=== PATIENT | male | born 1980 | race Caucasian/White ===

== ENCOUNTER 2020-11-25 15:51 | Emergency (ER) | payer MEDICAID, SELFPAY ==
[2020-11-25 15:57] VITALS: BP 138/99; PULSE 77; RESP 16; TEMP 36.4; O2SAT 98
--- NOTE | 2020-11-25 16:21 | W.ED.GENAD ---
Discharge Plan Disposition Patient Disposition: HOME Condition: Stable Discharge Details Clinical Impression: Burn, Cellulitis Primary Care Provider: Syed Leong ED Provider: Suman Gtz Home Meds and New Rx's Prescriptions: Continued amitriptyline 75 mg Tablet 75 mg PO DAILY RF: 0 topiramate [Topamax] 25 mg Tablet 25 mg PO BID RF: 0 Discharge Instructions Instructions: Cellulitis (ED), Second-Degree Burn (ED) Additional Instructions: Continue Doxycycline as directed. Over the counter Tylenol/Motrin as directed for discomfort. Rest, Elevate, cool/warm compresses every 2 hours for 20 minutes. Please change antibiotic dressing as needed, at least daily. Watch for new/worsening symptoms and return to the ER for any concerns. I would reach out to you primary care provider to discuss burn reevaluation in the next 2-3 days Medical Decision Making 39-year-old [id number] gentleman who sustained a right arm steam burn at work 3 days ago. He was seen at the urgent care yesterday, placed on doxycycline. Reports that the wound was wrapped and shortly after noticed erythema spreading proximally. He denies fever, numbness, tingling, weakness, worsening of pain, drainage. Tetanus is up-to-date. He states that he has taken a total of 3 doses of doxycycline, last dose approximately 1 hour ago. Since that time he believes that the redness is actually decreasing. Prior to arrival the erythema has spread up to or even past the elbow however now is only to the proximal forearm. Clinically he appears well, nontoxic. I do not believe that laboratory values are indicated. Doxycycline is an appropriate medication. I have trace the erythema so that we are better able to track if this does not fact get worse. Patient is comfortable with this plan. He will rest, elevate, cool/warm compresses every 2 hours for twins. Continue doxycycline as directed. [id number]-getecwk Tylenol and/or Motrin as directed for discomfort. He will watch for new or worsening symptoms and return to the ER for any concerns. If symptoms are worsening likely IV access, laboratory values and IV medications will be indicated. Otherwise he will reach out to his primary care provider to discuss wound reevaluation next 2-3 days. Again he is afebrile. This burn is noncircumferential. Neuro, vascular, tendon intact. Medical Records Medical records reviewed: Yes I reviewed the patient's medical records. HPI General Mode of arrival: ambulatory. Date/Time Provider Initiated Documentation: 11/25/20 16:02. Limitations to Documentation: no limitations. Information obtained by: patient. History of Present Illness described as mild, with intensity rated at 3. Quality is described as burning and aching, and is localized to the right and upper extremity. Patient extremity and proximal. Patient started experiencing this day(s) (3) and it has been other (improving when compared to 1 hour ago). other things that improve symptom(s), (Doxycycline) No exacerbating factors reported . Patient notes no other symptoms.; denies fever/chills. Patient did receive the following treatments prior to arrival, other (Doxycycline 100 mg) HPI Narrative: This is a 39-year-old gentleman, [id number], presenting for a right wrist edema burn that occurred at work 3 days ago. Subsequently he popped the blister on his own. Seen at the urgent care yesterday, placed on doxycycline, redness slightly spreading. Of note, he has taken 3 doses of doxycycline total, last dose approximately 1 hour ago, believes that the redness is actually improving. No additional concerns or complaints. Tetanus status up-to-date Related Data Home Medications Medication Instructions Recorded Confirmed amitriptyline 75 mg PO DAILY 11/25/20 11/25/20 topiramate [Topamax] 25 mg PO BID 11/25/20 11/25/20 Allergies Allergy/AdvReac Type Severity Reaction Status Date / Time Sulfa (Sulfonamide Allergy Unknown Unverified 11/25/20 16:01 Antibiotics) General Stated Complaint: Burn BECKIE: 3 Review of Systems Constitutional Constitutional: Denies fever(s) and Denies weakness Musculoskeletal Musculoskeletal: Denies arthralgias, Denies numbness and Denies tingling Integumentary/Breasts Skin/Breast: Reports erythema Neurologic Neurologic: Denies numbness, Denies tingling and Denies weakness FOR[facility]LY [facility] Social History Smoking/Tobacco Use Status: Never Smoking risk assessment performed?: Yes Alcohol Intake: never Do you feel safe at home: No Do you feel safe in your relationship?: Yes Exam Const General: cooperative, healthy appearing, comfortable and no acute distress Orientation: alert and awake HENNY Head: normal to inspection, normocephalic and atraumatic Eyes General: appearance normal, both eyes and all related structures Conjunctivae: conjunctivae normal Sclera: sclerae normal Neck Neck: normal visual inspection, trachea midline and supple Resp Effort & Inspection: normal respiratory effort and able to speak in complete sentences Cardio Rate: regular rate Rhythm: regular rhythm Skin General skin exam: erythema and other (burn) Neuro General: patient alert, patient awake, moves all extremities and no focal motor deficits Cognition: normal cognition Speech: speech normal Gait: normal gait Motor: muscle tone normal throughout Sensory Exam: no sensory deficits noted Extrem General: full ROM and capillary refill normal Elbow/forearm/wrist images: 1. There is a non circumferential ruptured second-degree burn. There is minimal discomfort to palpation. Full range of motion. Neuro, vascular, tendon intact. There is no weeping or drainage. Starting approximately there appears to be macular erythema that would be consistent with cellulitis. 2. Cellulitis Psych Appearance: grossly normal Mental Status: mental status grossly normal Course Vital Signs Vital signs: Vital Signs Temperature 36.4 C L 11/25/20 15:57 Pulse 77 11/25/20 15:57 Respiratory Rate 16 11/25/20 15:57 Blood Pressure 138/99 H 11/25/20 15:57 Pulse Oximetry 98 11/25/20 15:57 Temperature 36.4 C L 11/25/20 15:57 Temperature Source Skin 11/25/20 15:57 Pulse 77 11/25/20 15:57 Respiratory Rate 16 11/25/20 15:57 Respiratory Effort Non-Labored 11/25/20 15:57 Blood Pressure 138/99 H 11/25/20 15:57 Blood Pressure Position Supine 11/25/20 15:57 Pulse Oximetry 98 11/25/20 15:57 Oxygen Delivery Method Room Air 11/25/20 15:57 Oxygen Flow Rate 0 11/25/20 15:57 Pain Level 5 11/25/20 16:04
== END 2020-11-25 16:45 | disposition home or self-care (01) ==
PROVIDERS: Emergency Provider Physician Assistant; PCP Family Medicine
DX: T23.271A Burn of second degree of right wrist, initial encounter (principal); L03.113 Cellulitis of right upper limb; X13.1XXA Other contact with steam and other hot vapors, initial encounter
CPT/HCPCS: 16020

== ENCOUNTER 2021-02-05 09:08 | Emergency (ER) | payer MEDICAID, SELFPAY ==
[2021-02-05] VITALS (40 sets, daily range): BP systolic 108–131; BP diastolic 71–91; PULSE 62–88; RESP 12–24; TEMP 37.1; O2SAT 96–99
--- NOTE | 2021-02-05 09:00 | RT.EKG_ITS ---
APPROVED REPORT Exam: Resting ECG Reason for Exam: headache/dizzy Patient Location: E HR:82 bpm ECG Measurements Heart Rate 82 AXIS AZ 164 P 70 QRSd 88 QRS 33 QT 365 T 25 QTc 427 Conclusion Sinus rhythm...normal P axis, V-rate 60- 99
--- NOTE | 2021-02-05 09:15 | DI.CT_ITS ---
Exam(s) CT HEAD WO EXAM: CT HEAD WO CLINICAL HISTORY: HX Left tumor removal, SINCLAIR, Left side facial droop,. TECHNIQUE: Imaging Protocol: Axial computed tomography images with coronal and sagittal reformatted images were created and reviewed COMPARISON: No exams were available for comparison FINDINGS: Left temporal craniotomy site noted. There is no evidence of intracranial hemorrhage, mass effect, or shift of midline structures. There are no extra-axial fluid collections. The ventricles are not enlarged or shifted and there is no blo od within the ventricular system nor within the basal cisterns. IMPRESSION: No acute intracranial findings on this noninfused CT scan of the brain. Evidence of previous left temporal craniotomy. RADIATION DOSE DELIVERED: 756.54mGy.cm Total DLP DATA REPOSITORY: All CT scans at this facility are submitted to the National Radiology Data Registry (NRDR) Dose Index Registry (DIR) with the [employer] (ACR). RADIATION OPTIMIZATION: All CT scans at this facility use at least one of these dose optimization te chniques: automated exposure control; mA and/or kV adjustment per patient size (includes targeted exa ms where dose is matched to clinical indication); or iterative reconstruction.
--- NOTE | 2021-02-05 09:25 | W.ED.GENAD ---
Discharge Plan Disposition Patient Disposition: AGAINST MEDICAL ADVICE Condition: Stable Discharge Details Clinical Impression: Aphasia, Headache, History of paresthesia Primary Care Provider: Kobe Richardson ED Provider: Tootie Florez Home Meds and New Rx's Prescriptions: No Action amitriptyline 75 mg Tablet 75 mg PO DAILY RF: 0 prednisone 5 mg Tablet 5 mg PO DAILY RF: 0 Medical Decision Making 40-year-old male with a history of a left-sided brain tumor removal at [facility] in March presents to the ER chief complaint of left-sided facial droop which is at his baseline but he reports worsening, Over last couple weeks, tingling in his upper extremities, and visual changes including blurry vision and double vision which were worse yesterday and has seemed to have resolved upon arrival. He is alert and oriented x3. He is somewhat slow to respond and has some trouble remembering words. He reports this is gotten worse over the last 1 to 2 weeks. Positive nausea no vomiting, reports hard time focusing, no chest pain, no shortness of breath, no fever no chills. No pronator drift. He is ambulatory upon initial presentation to the department. Is complaining of left-sided headache at approximately 3 out of 10 radiating from left ear to his left frontal. EKG was reviewed by [Bradley Son MD] ER attending, please see his official read and report. No ST elevation. 1014: With further discussion and assessment with patient new symptoms include dizziness, feeling off balance, increase in forgetfulness, increased left-sided head pressure. I will consult with [facility] [place] regarding the recommendation if MRI is needed urgently versus outpatient. Patient has been taking prednisone daily for the last 5 days which seems to improve the pressure and his symptoms. Patient states that this morning he went to go mow the lawn and had numbness tingling in his arms, increased left-sided head pressure and feeling off balance. 1024: Spoke with Dr. Chris radiologist regarding head CT without contrast, he does not see any acute changes, nothing appreciable. Labs are largely unremarkable PT/INR within normal limits BUN 22, glucose 108. 1030: Call made to [facility] [place] for Neurology Consult, Images pushed. Exam(s) CT HEAD WO EXAM: CT HEAD WO CLINICAL HISTORY: HX Left tumor removal, SINCLAIR, Left side facial droop,. TECHNIQUE: Imaging Protocol: Axial computed tomography images with coronal and sagittal reformatted images were created and reviewed COMPARISON: No exams were available for comparison FINDINGS: Left temporal craniotomy site noted. There is no evidence of intracranial hemorrhage, mass effect, or shift of midline structures. There are no extra-axial fluid collections. The ventricles are not enlarged or shifted and there is no blood within the ventricular system nor within the basal cisterns. IMPRESSION: No acute intracranial findings on this noninfused CT scan of the brain. Evidence of previous left temporal craniotomy. 1131: Spoke with Dr. Puentes With Neurology She does recommend MRI with contrast and Follow up with Neurology in person she will make a note for Dr. Rivas. 1430 notified by staffing consultant that patient is back in room, MRI complete, patient is requesting to have his IV removed so he can go get his child. Patient out of room, IV removed prior to me speaking with patient. MRI results are still pending at this time. Patient eloped/ Left AGAINST MEDICAL ADVICE from the department prior to receiving discharge instructions or MRI results. Work-up at this time was not complete. Patient requesting to leave AMA. The patient appears clinically sober and is not under the influence of any known substances. Discussed risks and benefits with patient. Patient verbalizes understanding of situation and the risks of leaving including worsening condition, developing disability, including but not limited to . Discussed results of labs and imaging, if they were performed and recommendations for further treatment and/or observation. The patient verbalizes understanding of the results discussed. Every effort was made to involve family and situation discussed. At this time patient has opted to leave against medical advice. Patient is alert and oriented and has the capacity to make own decisions. Medical Records Medical records reviewed: Yes I reviewed the patient's medical records. Medical records narrative: Medical records reviewed from [facility]. 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 From a telehealth visit with neurology encounter date January 07, 2021 was reviewed. Patient did see neurologist Sanaz Rivas MD, he at that time had Been complaining of episodes of neck pain, dizziness, arm paresthesias, numbness left eye pain headaches and exhaustion. He has been having headache every day which she described at that time as pounding and was exhausted. Last MRI with and without contrast was done July [address] [facility]. Last CT head without was April 12, 2020. HPI General Mode of arrival: ambulatory. Date/Time Provider Initiated Documentation: 02/05/21 09:14. Limitations to Documentation: no limitations (Somewhat foregetful). Information obtained by: patient. HPI Narrative: 40-year-old male with a history of a left-sided brain tumor removal at [facility] in March presents to the ER chief complaint of left-sided facial droop which is at his baseline but he reports worsening, Over last couple weeks, tingling in his upper extremities, and visual changes including blurry vision and double vision which were worse yesterday and has seemed to have resolved upon arrival. He is alert and oriented x3. He is somewhat slow to respond and has some trouble remembering words. He reports this is gotten worse over the last 1 to 2 weeks. Positive nausea no vomiting, reports hard time focusing, no chest pain, no shortness of breath, no fever no chills. No pronator drift. He is ambulatory upon initial presentation to the department. Is complaining of left-sided headache at approximately 3 out of 10 radiating from left ear to his left frontal. Related Data Home Medications Medication Instructions Recorded Confirmed amitriptyline 75 mg PO DAILY 11/25/20 02/05/21 prednisone 5 mg PO DAILY 02/05/21 02/05/21 Allergies Allergy/AdvReac Type Severity Reaction Status Date / Time Sulfa (Sulfonamide Allergy Unknown Unverified 02/05/21 09:22 Antibiotics) General Stated Complaint: Headache BECKIE: 2 Review of Systems Narrative: Constitutional: Negative for weight loss, alert and oriented, well groomed, normal body habitus, appears comfortable. HEENT: Denies nasal discharge, sore throat, trouble swallowing. Left-sided headache, reports hitting his the top of his head on post yesterday. Report blurry vision double vision yesterday none currently. Chest: Denies chest pain, palpitations, irregular rhythm, hypertension. Respiratory: Denies Shortness of breath, cough, hemoptysis. GI: Denies abdominal pain, vomiting, diarrhea, constipation. Positive nausea : Denies dysuria, hematuria, flank pain, rectal bleeding. Neuro: Positive dizziness, left-sided headache, forgetting words, trouble with balance and trouble with focusing. History of acoustic neuroma and vestibular schwannoma which was [place] [facility] Hematologic: Denies easy bruising, intolerance to heat or cold, hair loss. [facility] Social History Smoking/Tobacco Use Status: Former Tobacco Use Smoking risk assessment performed?: Yes Alcohol Intake: former Substance use type: does not use Details: no alcohol or tobacco for years Do you feel safe at home: Yes Do you feel safe in your relationship?: Yes Exam Narrative Exam Narrative: Constitutional: Alert and oriented x3. Appears stated age. Normal body habitus. Head: Normocephalic, no trauma. Does have old healed surgical scars on the left frontal scalp and left parietal scalp Eyes: Pupils PERRLA, Red reflex noted, EOM's intact. Eyelids symmetrical without lesions, discharge, or swelling. ENT: Bilateral TM's WNL, External ear normal to inspection, no mastoid TTP, swelling, or erythema, Nasal turbinates WNL, no nasal discharge. Normal dentition, Posterior pharynx WNL, no exudate. Chest: RRR, Normal S1, S2, distal pulses intact. Resp: Lungs clear to auscultation bilaterally, no wheezes, rales, or rhonchi. Musculoskeletal: Normal gait, 5/5 strength bilateral lower extremities. Skin: No suspicious rashes or lesions. Capillary refill less than 2 sec. Neurologic: Alert and oriented x 3. 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 Hematologic/Lymphatic: No ecchymosis, no lymphadenopathy. Course Vital Signs Vital signs: Vital Signs Temperature 37.1 C 02/05/21 09:12 Pulse 86 02/05/21 09:12 Respiratory Rate 24 02/05/21 09:12 Blood Pressure 131/91 H 02/05/21 09:12 Temperature 37.1 C 02/05/21 09:12 Temperature Source Skin 02/05/21 09:12 Pulse 86 02/05/21 09:12 Respiratory Rate 24 02/05/21 09:12 Blood Pressure 131/91 H 02/05/21 09:12 Blood Pressure Position Supine 02/05/21 09:12 Oxygen Delivery Method Room Air 02/05/21 09:12 Oxygen Flow Rate 0 02/05/21 09:12
[2021-02-05 09:51] LABS: INR 1.1 (0.9-1.1); Prothrombin Time 10.6 sec (9.3-11.0)
[2021-02-05 09:53] LABS: ALT 47 U/L (16-63); AST 22 U/L (15-37); Albumin 4.2 g/dL (3.4-5.0); Alkaline Phosphatase 70 U/L (46-116); Anion Gap 7.4 mmol/L (3-11); BUN 22 mg/dL (7-18); Bilirubin, Total 0.3 mg/dL (0.2-1.0); CO2 28.6 mmol/L (21.0-32.0); CREATININE 0.9 mg/dL (0.70-1.30); Calcium 9.3 mg/dL (8.5-10.1); Chloride 104 mmol/L (98-107); Glucose 108 mg/dL (74-106); Potassium 4.2 mmol/L (3.5-5.1); Sodium 140 mmol/L (136-145); Total Protein 7.4 g/dL (6.4-8.2)
[2021-02-05] MEDS: Normal Saline 1,000 ML 1000 ML IV (10:37)
[2021-02-05] MEDS: Normal Saline Flush 10 ML SYR IVP ×2 (10:37→14:20)
[2021-02-05 10:55] LABS: Abs Immature Grans 0.01 10^3/uL (0.0-0.06); Absolute Basophil Count 0.03 10^3/uL (0.0-0.2); Absolute Eosinophil Count 0.04 10^3/uL (0.0-0.7); Absolute Lymphocyte Count 1.23 10^3/uL (1.2-3.4); Absolute Monocyte Count 0.33 10^3/uL (0.1-0.8); Absolute Neutrophil Count 5.11 10^3/uL (1.2-6.7); Basophils % 0.4; Eosinophils % 0.6; HCT 43.3 % (40.0-50.0); HGB 14.6 g/dL (13.5-17.5); Immature Grans % 0.1; Lymphocytes % 18.2; MCH 29.8 pg (27.0-33.0); MCHC 33.7 % (32.0-36.0); MCV 88.4 fL (80-95); MPV 10.4 fL (8.0-11.0); Monocytes % 4.9; Neutrophils % 75.8; Nucleated RBC 0 %; Platelet Count 231 10^3/uL (130-400); RDW 12.1 % (11.8-14.1); RDW-SD 39.1 fL; WBC 6.75 10^3/uL (4.4-10.8)
--- NOTE | 2021-02-05 11:50 | DI.MRI_ITS ---
Exam(s) MR IAC BRAIN WO/W EXAM: MR IAC BRAIN WO/W CLINICAL HISTORY: Hx Acoustic neuroma removal TECHNIQUE: Multiplanar multisequence MRI of the brain was performed. Both noninfused and contrast i nfused sequences were performed. IV Contrast injected was cc Dotarem. COMPARISON: CT CT HEAD WO from 02/05/2021 FINDINGS: There has been left temporal craniotomy. CEREBRAL PARENCHYMA: No evidence of intracranial hemorrhage, mass effect nor shift of midline structu re. No extraaxial fluid collections. Ventricles are not enlarged nor shifted. There is no significant focal signal abnormality in the cerebellar hemispheres nor within the cody, m idbrain, and thalami. There is no abnormal signal abnormality in the periventricular white matter. There are no ring enhancing lesions in the brain. There is no abnormal meningeal enhancement. INTERNAL AUDITORY CANALS: Right-side unremarkable. On the opposite-left side there is area of asymme tric signal abnormality anterior to the porous acousticus which measures 1.7 x 1.86 by 0.7 cm cephalo caudal. This is T1 hyperintense and decreased signal on fat suppression and may be related to postsu rgical change just anterior to the left internal auditory canal. There is no abnormal signal evident in adjacent cody and midbrain. PITUITARY GLAND: No mass nor parasellar abnormality. No obvious abnormality in the cavernous sinuses. FLOW VOIDS: The expected flow void are noted. No evidence of obvious aneurysm nor obvious vascular ma lformation. PARANASAL SINUSES: There is a unilateral fluid level in left maxillary sinus, consistent with sinusit is. There is a subjacent retention cyst noted. The opposite-right maxillary sinus is clear as are t he other paranasal sinuses and mastoid air cells. ORBITS: No obvious abnormal findings. IMPRESSION: 1. In this patient who has had recent left temporal craniotomy with resection of acoustic schwannoma, there is some signal abnormality just anterior to the left petrous temporal bone as described above which is most probably related to the previous surgery (as opposed to recurrent mass). Correlation w ith operative report is recommended. Also comparison to any previous outside and especially postoper ative MRI studies is recommended 2. There are no ring enhancing lesions in the brain. 3. No evidence of intracranial hemorrhage. Findings discussed with ER provider following completion of the study 02/05/2021 DATA REPOSITORY:
[2021-02-05] MEDS: LORazepam 2 MG/ML VIAL 1 MG IVP (13:02)
[2021-02-05] MEDS: Gadoterate meglumine 20 ML VIAL 16 ML IVP (14:21)
== END 2021-02-05 14:35 | disposition left against medical advice (07) ==
PROVIDERS: Emergency Provider Registered Nurse Emergency; PCP Family Medicine
DX: R47.01 Aphasia (principal); R51.9 Headache, unspecified; R20.2 Paresthesia of skin; H53.8 Other visual disturbances; R11.0 Nausea; Z53.29 Procedure and treatment not carried out because of patient's decision for other reasons
CPT/HCPCS: 36415; 36416; 70553; 80053; 82962; 93005; 96361; 96374; 99285; 70450; 85025; 85610; 93010; 99284; J2060

== ENCOUNTER 2021-02-19 13:08 | Outpatient (REF) | payer MEDICAID, SELFPAY ==
[2021-02-19 14:02] LABS: ESR 8 mm/hr (0-15)
[2021-02-20 09:49] LABS: Lyme Ab w Rflx to Lyme Confirm Negative (Negative)
== END 2021-02-19 13:09 | disposition home or self-care (01) ==
LOC: NCHCN 13:08
PROVIDERS: PCP Family Medicine; Visit Provider Family Medicine
DX: R51.9 Headache, unspecified (principal); R53.1 Weakness; G51.0 Bell's palsy
CPT/HCPCS: 85652; 86618

== ENCOUNTER 2021-02-19 16:03 | Outpatient (REF) | payer MEDICAID, SELFPAY | END 2021-02-19 16:04 | disposition home or self-care (01) | LOC: LBN 16:03 | PROVIDERS: PCP Family Medicine; Visit Provider Physician Assistant Medical | DX: N39.0 Urinary tract infection, site not specified (principal) | CPT/HCPCS: 87077; 87086; 87186 ==

== ENCOUNTER 2021-02-21 11:27 | Emergency (ER) | payer MEDICAID, SELFPAY ==
[2021-02-21 11:30] VITALS: BP 131/79; PULSE 90; RESP 16; TEMP 36.7; O2SAT 99
--- NOTE | 2021-02-21 12:03 | ED.GENADUL_ITS ---
Discharge Plan Disposition Patient Disposition: HOME Condition: Improving Discharge Details Clinical Impression: Dysuria Primary Care Provider: Kobe Richardson ED Provider: Wilbur Barnett Home Meds and New Rx's Prescriptions: New levofloxacin 500 mg tablet 500 mg PO DAILY 7 Days Qty: 7 RF: 0 Continued amitriptyline 75 mg Tablet 75 mg PO DAILY RF: 0 Discontinued cephalexin 500 mg capsule 500 mg PO BID RF: 0 No Action prednisone 5 mg Tablet 5 mg PO DAILY RF: 0 Discharge Instructions Instructions: Dysuria (ED) Additional Instructions: Stop taking the prescribed cephalexin. We will begin levofloxacin 1 tablet daily for 7 days. We have asked our care management team to arrange a follow-up for you in urology clinic. Please return if you develop a fever, abdominal pain, vomiting, or any other acute concerns. Medical Decision Making 40-year-old male states she developed foul-smelling and burning with urination over 3 days ago, was seen in urgent care and started on Keflex 500 mg twice daily of which she has had 4 doses. Now with persistent subjective fever and chills, low back ache. Sexually active with a single partner, no new sexual contacts. Denies any penile discharge or discomfort. Patient is well-appearing, his exam is reassuring. Differential diagnosis includes urinary tract infection, cystitis, prostatitis. Labs: White blood cell count elevated at 13.9, hematocrit 40, platelets 224. Chemistries reassuring with BUN 16, creatinine 0.9, normal LFTs. Urinalysis shows no significant acute findings. CT images obtained, without significant acute findings. See formal report. Given the patient's somewhat atypical presentation, likely partially treated UTI, I will place him on Levaquin and also refer to urology for follow-up. Patient deferred prostatic examination during today's visit. He is stable and appropriate for outpatient trial. HPI General Mode of arrival: ambulatory . Date/Time Provider Initiated Documentation: 02/21/21 11:29 . Limitations to Documentation: no limitations . Information obtained by: patient . History of Present Illness 40 year old M presents to the emergency department with the chief complaint of Low back pain, fever, foul-smelling urination, described as moderate, and is localized to the abdomen and genitals. Patient reports no radiation. Patient started experiencing this day(s) and it has been constant. No relieving factors improve symptom(s), No exacerbating factors reported . Patient notes fever/chills. Patient did receive the following treatments prior to arrival, other (Cephalexin twice daily for 2 days) Related Data Home Medications Medication Instructions Recorded Confirmed amitriptyline 75 mg PO DAILY 11/25/20 02/05/21 prednisone 5 mg PO DAILY 02/05/21 02/05/21 levofloxacin 500 mg PO DAILY 7 Days #7 tab 02/21/21 Previous Rx's Medication Instructions Recorded levofloxacin 500 mg PO DAILY 7 Days #7 tab 02/21/21 Allergies Allergy/AdvReac Type Severity Reaction Status Date / Time Sulfa (Sulfonamide Allergy Unknown Unverified 02/21/21 11:35 Antibiotics) General Stated Complaint: FlankPain BECKIE: 3 Review of Systems Narrative: No vomiting. Positive subjective fever and chills. Low backache. Otherwise well. 6 systems reviewed and negative. [facility] Social History Smoking/Tobacco Use Status: Former Tobacco Use Smoking risk assessment performed?: Yes Alcohol Intake: former Substance use type: does not use Details: no alcohol or tobacco for years Do you feel safe at home: Yes Do you feel safe in your relationship?: Yes Exam Narrative Exam Narrative: GEN: awake, alert, oriented 3. Pleasant, well groomed, interactive. HEAD: Normocephalic, atraumatic EYES: PERRL, EOMI NECK: Full ROM, no LETTY, no menigismus CHEST/RESP: Nontender, clear to auscultation bilateral, no wheeze/rhonchi/rales CARDIOVASCULAR: RRR, no murmur, rub chidi. 2+ Rad pulse bilateral ABDOMEN: Soft, nontender, no mass. +Bowel sounds. Mild bilateral flank tenderness to percussion EXT: Full ROM, no edema, no rash Neuro: Grossly normal neurologic exam, conversant, interactive. Psych: Speech fluent, thoughts congruent, affect normal Course Vital Signs Vital signs: Vital Signs Temperature 36.7 C 02/21/21 11:30 Pulse 90 02/21/21 11:30 Respiratory Rate 16 02/21/21 11:30 Blood Pressure 131/79 02/21/21 11:30 Pulse Oximetry 99 02/21/21 11:30 Temperature 36.7 C 02/21/21 11:30 Temperature Source Skin 02/21/21 11:30 Pulse 90 02/21/21 11:30 Respiratory Rate 16 02/21/21 11:30 Respiratory Effort 02/21/21 11:37 Blood Pressure 131/79 02/21/21 11:30 Blood Pressure Position Sitting 02/21/21 11:30 Pulse Oximetry 99 02/21/21 11:30 Oxygen Delivery Method Room Air 02/21/21 11:30 Oxygen Flow Rate 0 02/21/21 11:30 Comment taking tylenol and ibuprofen 02/21/21 11:30
[2021-02-21] MEDS: Normal Saline Flush 10 ML SYR IVP (12:19)
[2021-02-21] MEDS: levoFLOXacin 750 MG/150 ML BAG 100 MG IVPB (12:21)
[2021-02-21] MEDS: Normal Saline 1,000 ML 1000 ML IV ×2 (12:21→13:15)
[2021-02-21 12:24] LABS: Bilirubin Negative (Negative); Blood Negative (Negative); Clarity Clear (Clear); Glucose Negative (Negative); Ketones Negative (Negative); Leukocyte Esterase Negative (Negative); Nitrite Negative (Negative); Urobilinogen 0.2 EU/dL (Up TO 0.2)
[2021-02-21 12:28] LABS: Abs Immature Grans 0.03 10^3/uL (0.0-0.06); Absolute Eosinophil Count 0.11 10^3/uL (0.0-0.7); Absolute Lymphocyte Count 2.51 10^3/uL (1.2-3.4); Absolute Neutrophil Count 9.89 10^3/uL (1.2-6.7); Basophils % 0.4; Eosinophils % 0.8; HCT 40.8 % (40.0-50.0); HGB 13.7 g/dL (13.5-17.5); Immature Grans % 0.2; MCH 29.7 pg (27.0-33.0); MCHC 33.6 % (32.0-36.0); MCV 88.3 fL (80-95); MPV 9.7 fL (8.0-11.0); Monocytes % 9.7; Neutrophils % 70.9; Nucleated RBC 0 %; Platelet Count 224 10^3/uL (130-400); RBC 4.62 10^6/uL (4.36-5.78); RDW-SD 38.7 fL; WBC 13.95 10^3/uL (4.4-10.8)
[2021-02-21 12:29] LABS: Absolute Basophil Count 0.06 10^3/uL (0.0-0.2); Absolute Monocyte Count 1.35 10^3/uL (0.1-0.8)
[2021-02-21 12:40] LABS: ALT 32 U/L (16-63); AST 15 U/L (15-37); Albumin 3.6 g/dL (3.4-5.0); Alkaline Phosphatase 82 U/L (46-116); Anion Gap 7.6 mmol/L (3-11); BUN 16 mg/dL (7-18); Bilirubin, Total 0.4 mg/dL (0.2-1.0); CO2 28.4 mmol/L (21.0-32.0); CREATININE 0.9 mg/dL (0.70-1.30); Calcium 8.7 mg/dL (8.5-10.1); Chloride 103 mmol/L (98-107); Glucose 112 mg/dL (74-106); Potassium 3.6 mmol/L (3.5-5.1); Sodium 139 mmol/L (136-145); Total Protein 7.4 g/dL (6.4-8.2)
--- NOTE | 2021-02-21 13:15 | DI.CT_ITS ---
Exam(s) CT ABDOMEN PELVIS W EXAM: CT ABDOMEN PELVIS W CLINICAL HISTORY: Bilateral flank pain, dysuria. TECHNIQUE: Imaging Protocol: Axial computed tomography images with coronal and sagittal reformatted images were created and reviewed CONTRAST MATERIAL: Intravenous: Omnipaque 350 Contrast volume:structured data in ml Oral: yes / no COMPARISON: No exams were available for comparison FINDINGS: ABDOMEN: Lung Bases: mild atelectasis Liver: Normal density. No measurable mass. Gallbladder and biliary tract: No radiodense calculus or dilation. Pancreas: Normal density, no abnormal calcifications or inflammatory process. Spleen: Normal. Kidneys: Normal size, contour and axis. No radiodense stones or obstructive uropathy. No masses seen. Adrenal glands: No masses seen. Abdominal Aorta: Abdominal portion non-dilated. mild atherosclerotic changes. PELVIS: Bladder: Symmetric distention, no gross wall thickening. no calculi Bowel: large quantity of stool. No obstruction or bowel wall thickening. appendix not visible. chan rgical clips right lower quadrant. Peritoneal cavity: No ascites, collection or mesenteric inflammatory response. Bones: Within normal limits. Reproductive organs: Within normal limits. Lymph nodes: Unremarkable. Impression: increased quantity of stool, otherwise unremarkable CT scan of the abdomen and pelvis. RADIATION DOSE DELIVERED: 853.69mGy.cm Total DLP DATA REPOSITORY: All CT scans at this facility are submitted to the National Radiology Data Registry (NRDR) Dose Index Registry (DIR) with the [employer] (ACR). RADIATION OPTIMIZATION: All CT scans at this facility use at least one of these dose optimization te chniques: automated exposure control; mA and/or kV adjustment per patient size (includes targeted exa ms where dose is matched to clinical indication); or iterative reconstruction.
[2021-02-21] MEDS: Normal Saline - Diluent 50 ML VIAL IV (14:26)
[2021-02-21] MEDS: Omnipaque 350 MG/ML 100 ML BTL IJ (14:26)
[2021-02-21 15:02] VITALS: BP 133/57; PULSE 87; O2SAT 99
--- NOTE | 2021-02-21 18:48 | NUR.NOTE ---
Nursing Note: Referral faxed to urology 02/21/21 @ [phone]
== END 2021-02-21 15:04 | disposition home or self-care (01) ==
PROVIDERS: Emergency Provider Emergency Medicine; PCP Family Medicine
DX: R30.0 Dysuria (principal)
CPT/HCPCS: 36415; 80053; 96361; 96365; 99285; 74177; 81003; 83605; 85025; 87086; 99283; J1956; J3490

== ENCOUNTER 2021-03-04 01:08 | Outpatient (CLI) | payer MEDICAID, SELFPAY ==
--- NOTE | 2021-03-04 08:00 | ETT_ITS ---
APPROVED REPORT Exam: Exercise Treadmill Patient Location: Out-Patient Room/Bed: Stress Nurse: Marni Villagomez RN Ordering Provider:CRISTI AVERY, Contact Number: [phone] BMI: 26.45 Baseline Rhythm: Sinus Rhythm Indications: Dyspnea on exertion, body weakness on exertion. Medical History Medical History: HAs, Dysuria, Paresthesia, Aphasia, Cellulitis, Brain tumor Cardiac Medications: None., Allergies: Sulfa Cardiac Risk Factors: Smoking (former) Previous Cardiac Procedures: None. Pretest Chest Pain Characteristics: No chest pain or dyspnea present at rest. Exercise History: Sedentary; has not been physically active since surgery 03/2020 Physical Disabilities: None. Lung Sounds: Clear to auscultation Heart Sounds: Regular Stress Test Details Test: Exercise stress testing was performed using a Daren protocol. Rest Stress HR Resting HR Supine: 84 bpm Max Heart Rate (APMHR): 181 bpm Resting HR Standin bpm Target HR (85% APMHR): 153 bpm Max HR Achieved: 188 bpm % of APMHR: 103 Recovery HR: 100 bpm HR response to stress: Normal HR response to stress Comment: prolonged return to baseline in recovery period. BP Resting BP Supine: 132/90 mmHg Resting BP Standin/88 mmHg Max BP: 160/76 mmHg Recovery BP: 128/72 mmHg BP response to stress: Normal blood pressure response to stress. ECG Resting ECG: Sinus Rhythm Ectopy: None Comment: inverted T wave lead III when standing. Stress ECG: Sinus Tachycardia ST Change: No significant ST segment changes noted Arrhythmia: None Comment: Flipped T waves in leads aVF and V6. Recovery ECG: Sinus Tachycardia Recovery ST Change: No significant ST segment changes noted Recovery Arrhythmia: occasional PVCs Comment: Flipped T waves returned to baseline within 10 minutes in leads aVF and V6, and 14 minutes i n lead III. Clinical Reason for Termination: Fatigue Stress Symptoms: Dyspnea, Dizziness Exercise duration: 16 min49 sec Highest Stage Reached: Stage 6: 5.5 mph at 20% grade. Exercise capacity: 16.79 METs Gomes Treadmill Score: 15.1 Rate Pressure Product: 32411 Stress ECG Conclusion 1. The resting electrocardiogram showed voltage for left ventricular hypertrophy, rightward axis 2. Patient exercised on the Daren protocol and completed a workload of 16.79 METS 3. Normal heart rate and blood pressure response to exercise. The patient achieved 100% of predicted heart rate for age 4. There were no symptoms to suggest angina 5. Electrocardiographically the test was negative for myocardial ischemia 6. There were no significant dysrhythmias Gomes Treadmill Score is 15.1 which is Low risk.
== END 2021-03-04 01:28 ==
PROVIDERS: PCP Family Medicine; Visit Provider Family Medicine
DX: R06.09 Other forms of dyspnea (principal); F17.210 Nicotine dependence, cigarettes, uncomplicated
CPT/HCPCS: 93017

== ENCOUNTER 2021-03-19 02:54 | Outpatient (CLI) | payer MEDICAID, SELFPAY ==
[2021-03-22 15:59] LABS: Testosterone, Total 411 ng/dL (240-950)
== END 2021-03-19 02:55 | disposition home or self-care (01) ==
LOC: LBO 02:54
PROVIDERS: PCP Family Medicine; Visit Provider Urology
DX: E29.1 Testicular hypofunction (principal)
CPT/HCPCS: 36415; 84403

== ENCOUNTER 2021-04-22 14:35 | Outpatient (REF) | payer MEDICAID, SELFPAY ==
[2021-04-22 14:29] LABS: Abs Immature Grans 0.02 10^3/uL (0.0-0.06); Absolute Basophil Count 0.04 10^3/uL (0.0-0.2); Absolute Eosinophil Count 0.07 10^3/uL (0.0-0.7); Absolute Lymphocyte Count 2.93 10^3/uL (1.2-3.4); Absolute Monocyte Count 0.45 10^3/uL (0.1-0.8); Absolute Neutrophil Count 4.69 10^3/uL (1.2-6.7); Basophils % 0.5; Eosinophils % 0.9; HCT 44.9 % (40.0-50.0); HGB 15.1 g/dL (13.5-17.5); Immature Grans % 0.2; Lymphocytes % 35.7; MCH 29.2 pg (27.0-33.0); MCHC 33.6 % (32.0-36.0); MCV 86.7 fL (80-95); MPV 10.8 fL (8.0-11.0); Monocytes % 5.5; Neutrophils % 57.2; Nucleated RBC 0 %; Platelet Count 228 10^3/uL (130-400); RBC 5.18 10^6/uL (4.36-5.78); RDW 11.9 % (11.8-14.1); RDW-SD 38.4 fL
[2021-04-22 15:21] LABS: Anion Gap 10.8 mmol/L (3-11); BUN 23 mg/dL (7-18); CO2 26.2 mmol/L (21.0-32.0); CREATININE 0.9 mg/dL (0.70-1.30); Calcium 9.4 mg/dL (8.5-10.1); Chloride 104 mmol/L (98-107); Glucose 90 mg/dL (74-106); Sodium 141 mmol/L (136-145); TSH (W/Ref FT4) 1.66 uIU/mL (0.36-3.74); Vitamin B12 928 pg/mL (193-986)
[2021-04-24 01:18] LABS: Vitamin D 25 Total 93.4 ng/mL (30-100)
== END 2021-04-22 14:36 | disposition home or self-care (01) ==
LOC: NCHCN 14:35
PROVIDERS: PCP Family Medicine; Visit Provider Family Medicine
DX: D72.829 Elevated white blood cell count, unspecified (principal); R03.0 Elevated blood-pressure reading, without diagnosis of hypertension; E55.9 Vitamin D deficiency, unspecified; R53.83 Other fatigue
CPT/HCPCS: 80048; 82306; 82607; 84443; 85025

== ENCOUNTER 2021-05-20 02:38 | Outpatient (CLI) | payer MEDICAID, SELFPAY ==
[2021-05-20] MEDS: Gadoterate meglumine 20 ML VIAL 10 ML IVP (15:50)
--- NOTE | 2021-05-20 15:50 | DI.MRI_ITS ---
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 TECHNIQUE: Multiplanar multisequence MRI of the brain and internal auditory canals was performed. CONTRAST MATERIAL: IV Contrast: 16 mL of Magnevist contrast administered. COMPARISON: MR MR IAC BRAIN WO/W from 02/05/[address] HEAD WO from 02/05/2021 MR MR IAC BRAIN WO/W from 02/05/[address] HEAD WO from 02/05/2021 FINDINGS: VENTRICLES AND EXTRA AXIAL SPACES: Normal in size and morphology for the patient's age. HEMORRHAGE: None. CEREBRAL PARENCHYMA: No focus of restricted diffusion to suggest acute infarct. No space-occupying le jack identified. MIDLINE SHIFT: None. BRAINSTEM/CEREBELLUM: Normal. CALVARIUM: Left temporoparietal craniotomies. ENHANCEMENT: No suspicious enhancement identified. VISUALIZED PARANASAL SINUSES/MASTOIDS: Clear. IAC/CP ANGLE: Stable area high T1 signal anterior to the left internal auditory canal. The internal auditory canals are within normal limits. No enhancing lesions are seen. Visualized portion of the 7t h and 8th nerves appear within normal limits. IMPRESSION: Unremarkable MRI of the brain. Stable postsurgical changes related to prior acoustic neuroma resecti on. No evidence of recurrence mass or new abnormality. DATA REPOSITORY:
== END 2021-05-20 02:58 ==
PROVIDERS: PCP Family Medicine; Visit Provider Family Medicine
DX: D33.3 Benign neoplasm of cranial nerves (principal); R51.9 Headache, unspecified; Z98.890 Other specified postprocedural states
CPT/HCPCS: 70553

== ENCOUNTER 2021-05-21 04:15 | Outpatient (CLI) | payer MEDICAID, SELFPAY ==
[2021-05-24 17:23] LABS: Testosterone, Total 602 ng/dL (240-950)
== END 2021-05-21 04:16 | disposition home or self-care (01) ==
LOC: LBO 04:15
PROVIDERS: PCP Family Medicine; Visit Provider Urology
DX: E29.1 Testicular hypofunction (principal)
CPT/HCPCS: 36415; 84403

== ENCOUNTER 2021-08-25 04:01 | Outpatient (CLI) | payer MEDICAID, SELFPAY ==
[2021-08-29 00:12] LABS: Testosterone, Total 396 ng/dL (240-950)
== END 2021-08-25 04:02 | disposition home or self-care (01) ==
LOC: LBO 04:01
PROVIDERS: PCP Family Medicine; Visit Provider Urology
DX: E29.1 Testicular hypofunction (principal)
CPT/HCPCS: 36415; 84403

== ENCOUNTER 2021-11-26 02:48 | Outpatient (CLI) | payer MEDICAID, SELFPAY ==
[2021-11-29 12:11] LABS: Testosterone, Total 542 ng/dL (240-950)
== END 2021-11-26 02:49 | disposition home or self-care (01) ==
LOC: LBO 02:48
PROVIDERS: PCP Family Medicine; Visit Provider Urology
DX: E29.1 Testicular hypofunction (principal); R53.83 Other fatigue
CPT/HCPCS: 36415; 84403

== ENCOUNTER 2022-02-27 01:22 | Outpatient (CLI) | payer MEDICAID, SELFPAY ==
--- OUTSIDE RECORDS SUMMARY | 2022-02-27 01:24 | XMS_ITS | Encounter Summary ---
:[address] [facility] Address [address] [place] [address] Care Team Providers Name Role Phone Syed Leong MD Primary Care Provider Unavailable Encounter Details Date Type Department Care Team Description 02/15/2020 Results Only [facility] Family Syed Leong MD [address] [address] Social History Tobacco Use Types Packs/Day Years Used Date Former Smoker Cigarettes 10 Quit: 03/25/20 09 Smokeless Tobacco: Never Used Alcohol Use Standard Drinks/Week Comments No 0 (1 standard drink = 0.6 oz pure alcoho l) occ Sex Assigned at Date Recorded Male 03/11/2020 9:13 EDT COVID-19 Exposure Response Date Recorded In the last month, have you been in contact with No / Unsure 02/14/2020 16:02 EDT someone who was confirmed or suspected to have Coronavirus / COVID-19? documented as of this encounter Functional Status Functional Status Response Date of Assessment Because of a physical, mental, or emotional condition, No 11/15/2019 does this person have difficulty doing errands alone such as visiting a doctor's office or shopping? Cognitive Status Response Date of Assessment Because of a physical, mental, or emotional condition, No 11/15/2019 does this person have serious difficulty concentrating, remembering, or making decisions? documented as of this encounter Plan of Treatment Not on filedocumented as of this encounter Procedures Procedure Name Priority Date/Time Associated Diagnosis Comme nts BASIC METABOLIC Routine 02/15/2020 13:44 Results for this PANEL (BMP) EDT procedure are i n the results section. documented in this encounter Results BASIC METABOLIC PANEL (BMP) (02/15/2020 13:44 EDT) BUN - [facility] [place] 26 10 - 26 mg/dL [facility] CALCIUM - [facility] 9.5 8.5 - 10.5 [facility] mg/dL [facility] Chloride 102 96 - 110 [facility] mmol/L [facility] CO2 Total 26 21 - 32 mEq/L [facility] CREATININE 0.93 0.66 - 1.25 [facility] mg/dL [facility] eGFR >60 [facility] Comment: [facility] Chronic renal impairment is defined as GFR <60 Multiply result by 1.210 for patients . Anion Gap 12 0 - 18 [facility] GLUCOSE - [facility] 79 70 - 100 mg/dL [facility] Potassium 4.3 3.5 - 5.0 [facility] mEq/L [facility] Sodium 140 136 - 145 [facility] mEq/L [facility] Specimen Narrative [facility] - 020 15:24 EDT Does PT Have a Latex Allergy? NO Performing Organization Address City/State/ZIP Code Phon e Number [facility] [address] [place], [place] [id number] [place] [address] LAB documented in this encounter Visit Diagnoses Not on filedocumented in this encounter Care Teams Groover Runner Relationship Specialty Start Date End Date Syed Leong MD PCP - General 04/08/09 0 documented as of this encounter
--- OUTSIDE RECORDS SUMMARY | 2022-02-27 01:24 | XMS_ITS | Encounter Summary ---
:1980 Author Organization [facility] Address [address] [place] [address] Care Team Providers Name Role Phone Syed Leong MD Primary Care Provider Unavailable Unknown, Provider Primary Care Provider Encounter Details Date Type Department Care Team Description 02/28/2020 Results Only [facility] - Tio Cooper, ROXANN Imaging [facility] Radiology Resul [address] [facility] [address] [place] [address] [address] [place] [address] (Wo rk) Social History Tobacco Use Types Packs/Day Years [...] been in contact with No / Unsure 02/27/2020 14:00 EDT someone who was confirmed or suspected [...] Name Priority Date/Time Associated Diagnosis Comme nts XR SHOULDER RIGHT 2 02/28/2020 8:38 EDT R esults for this OR MORE VIEWS procedure are in the results section. documented in this encounter Results XR SHOULDER RIGHT 2 OR MORE VIEWS (02/28/2020 8:38 EDT) Specimen Narrative RADIOLOGY - 02/28/2020 8:38 EDT ? EXAM: RADIOLOGY/SHOULDER RT 2+VIEWS ? EX. D/ (1412) ? CLINICAL INFORMATION: ? M25.511, ACUTE PAIN OF RIGHT SHOU LDER ? INDICATION: M25.511, ACUTE PAIN O F RIGHT SHOULDER. ? COMPARISON: None. ? TECHNIQUE: 4 views of the right s houlder were obtained. ? FINDINGS: ? Soft tissue calcification adjacen t to the lesser tuberosity of the ? humerus seen on the axillary view is consistent with subscapularis ? calcific tendinitis. Soft tissues are otherwise unremarkable. No bone ? or joint abnormality is seen. ? IMPRESSION: Calcific tendinitis o f the subscapularis. ? REPORT SIGNED IN OTHER VENDOR SYSTEM 02/28/2020 ?Reported B y: Sina Mansfield MD ? CC: ? Transcribed Date/Time: 02/28/2020 (0838) ? Handcrew Foreman: ? Printed Date/Time: 02/28/2020 (08 38) ? PAGE 1 ? Adriana d Report ? Procedure Note Sina Mansfield MD - 0 EXAM: RADIOLOGY/SHOULDER RT 2+VIEWS EX. D/ (1412) CLINICAL INFORMATION: M25.511, ACUTE PAIN OF RIGHT SHOULDER INDICATION: M25.511, ACUTE PAIN OF RIGH T SHOULDER. COMPARISON: None. TECHNIQUE: 4 views of the right shoulde r were obtained. FINDINGS: Soft tissue calcification adjacent to t he lesser tuberosity of the humerus seen on the axillary view is co nsistent with subscapularis calcific tendinitis. Soft tissues are o therwise unremarkable. No bone or joint abnormality is seen. IMPRESSION: Calcific tendinitis of the subscapularis. REPORT SIGNED IN OTHER VENDOR SYSTEM 02/28/2020 Reported By: Sina Mansfield MD CC: Transcribed Date/Time: 02/28/2020 (0851 ) [employer]crew Foreman: Printed Date/Time: 02/28/2020 (3844) PAGE 1 Signed Report Performing Organization Address City/State/ZIP Code Phon e Number RADIOLOGY documented in this encounter Visit Diagnoses Not on filedocumented in this encounter Care Teams Employee Service Officer Relationship Specialty Start Date End Date Syde Leong MD PCP - General 04/08/09 0 Unknown, Provider, PCP - General 11/24/20 documented as of this encounter
--- OUTSIDE RECORDS SUMMARY | 2022-02-27 01:24 | XMS_ITS | Encounter Summary ---
:1980 Author Organization [facility] Address [address] [place] [address] Care Team Providers Name Role Phone Syed Leong MD Primary Care Provider Unavailable Encounter Details Date Type Department Care Team Description 02/14/2020 Travel Social History Tobacco Use Types Packs/Day Years [...] Not on filedocumented as of this encounter Visit Diagnoses Not on filedocumented in this encounter Care Teams Clock Smith Relationship Specialty Start Date End Date Syed Leong MD PCP - General 04/08/09 0 documented as of this encounter
--- OUTSIDE RECORDS SUMMARY | 2022-02-27 01:24 | XMS_ITS | Encounter Summary ---
:1980 Author Organization [facility] Address [address] [place] [address] Care Team Providers Name Role Phone Syed Leong MD Primary Care Provider Unavailable Encounter Details Date Type Department Care Team Description 02/27/2020 Travel Social History Tobacco Use Types Packs/Day [...] on filedocumented in this encounter Care Teams Milling Machine Tender Relationship Specialty Start Date End Date Syed Leong MD PCP - General 04/08/09 0 documented as of this encounter
--- OUTSIDE RECORDS SUMMARY | 2022-02-27 01:24 | XMS_ITS | Encounter Summary ---
:1980 Author Organization [facility] Address [address] [place] [address] Care Team Providers Name Role Phone Unknown, Provider Primary Care Provider Reason for Visit Reason Comments Burn burned rt wrist 2 days ago. wants to have it checked Encounter Details Date Type Department Care Team Description 11/24/2020 [facility] - Nancy Patton Par tial thickness burn [facility] - MD of right wrist, initial [place] [address] encounter (Primary Dx) [address] [place] [address] Road [phone] [address] [place] [address] Social History Tobacco Use Types Packs/Day Years [...] been in contact with No / Unsure 11/24/2020 15:13 EDT someone who was confirmed or suspected to have Coronavirus / COVID-19? documented as of this encounter Last Filed Vital Signs Vital Sign Reading Time Taken Comments Blood Pressure 133/92 11/24/2020 1521 EDT Pulse 71 11/24/2020 1521 EDT Temperature 36.8 ??C (98.2 ??F) 11/24/2020 1521 EDT Respiratory Rate - - Oxygen Saturation 100% 11/24/2020 1521 EDT Inhaled Oxygen Concentration - - Weight - - Height - - Body Mass Index - - documented in this encounter Functional Status Functional Status Response [...] making decisions? documented as of this encounter Patient Instructions Patient InstructionsNancy Patton MD - 11/24/2020 15:15 EDT Your seen today for burn of your right wrist. There does not currently appear to be signs of infection, though you will be using a topical antimicrobial - Bacitracin Keep dressing in place at at times. At night you should remove the dressing, and gently wash with mild soap and water. Pat dry and place Mepilex foam, sticky side down against the burn. In the am remove Mepilex foam (you may reuse this up to 5 days, replace when soiled through) and place bacitracin, then gauze, and wrap with Coflex. Change dressing if it gets soaked. Wash hands and remove dressing. Gently clean around the wound with mild soap (unscented such as dove) and water (either in shower, or with clean washcloth or gently with gauze). May gently clean the wound to remove any loose debris. You may reuse the piece of foam up to 5 days if not soiled through or gets wet. Use new piece if soiled or if it's been used more than 5 days. Recommended follow up with [facility] in/on in 10-14 days, sooner if worsening or not improving. Please follow up immediately with PCP, [facility] or Emergency Department if worsening pain in thewound, more swelling and redness, more wound odor, or increased drainage, or if you develop a fever. You are up to date on Tetanus vaccine - last given 02/22/2020 documented in this encounter Ordered Prescriptions Prescription Sig Dispensed Refills Start Date End Date doxycycline (VIBRA-TABS) Take 1 Tab by mouth 14 Tab 0 12/01/2020 100 mg tablet 2 times daily for 7 days. doxycycline (VIBRA-TABS) Take 1 Tab by mouth 14 Tab 0 11/24/2020 100 mg tablet 2 times daily for 7 days. documented in this encounter Progress Notes Nancy Patton MD - 11/24/2020 1515 EDT [facility] Chief Complaint(s): Chief Complaint Patient presents with ??? Burn burned rt wrist 2 days ago. wants to have it checked Assessment & Plan: 1. Partial thickness burn of right wrist, initial encounter There does not currently appear to be signs of infection, though you will be using a topical antimicrobial - Bacitracin Keep dressing in place at at times. At night you should remove the dressing, and gently wash with mild soap and water. Pat dry and place Mepilex foam, sticky side down against the burn. In the am remove Mepilex foam (you may reuse this up to 5 days, replace when soiled through) and place bacitracin, then gauze, and wrap with Coflex. Change dressing if it gets soaked. Recommended follow up with [facility] in 10-14 days, sooner if worsening or not improving. Discussed that these abdalla often take at least 2 weeks to heal, although remodeling of the skin willoccur for 6 months following. Advised that he avoid extremes of temperature, use sunscreen, and keepthe area well hydrated. Please follow up immediately with PCP, [facility] or Emergency Department if worsening pain in thewound, more swelling and redness, more wound odor, or increased drainage, or if you develop a fever. Note: Patient called after he returned home at 17:00, and he noted some increasing redness with streaking up towards his elbow. 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 It immediately was red and painful. The following day it developed a large blister, which broke. He now has 2 smaller blisters close to his wrist flexure. He has full sensation in the area of the burn. Normal range of motion of wrist and hand ROS: Review of Systems Constitutional: Negative for chills and fever. HENT: Negative. Respiratory: Negative for cough and shortness of breath. Gastrointestinal: Negative for diarrhea, nausea and vomiting. Musculoskeletal: Negative for myalgias. Objective: Vitals and nursing notes reviewed Examination: BP (!) 133/92 Pulse 71 Temp 36.8 ??C (98.2 ??F) (Skin) SpO2 100% Physical Exam Vitals signs and nursing note reviewed. Constitutional: General: He is not in acute distress. Skin: Comments: Area of approximately 3 and half centimeter diameter at flexor of the wrist with a partial-thickness burn. No paleness of the wound bed noted noted. superficial burn extending to the thenar eminence of thumb and radial aspect of wrist. Approximately 1 cm bullae with clear fluid at wrist flexor. No streaking erythema. No purulence. Mild erythema at proximal edge of wound. Neurological: Mental Status: He is alert. Sensory: No sensory deficit (Sensation intact to light touch right upper extremity, sensation intact over entirety of the burned area). Data reviewed with patient (current and past results): Tetanus is up-to-date Last test tetanus 02/22/2020 Katherine Callaway LPN - 11/24/2020 1515 EDT CC: Covid Screening: In the last 72 hours, has the patient had: Shortness of breath, cough, sore throat, nasal congestion, runny nose, fever/chills/body aches, headache, or loss of taste or smell without a reasonable alternative diagnosis*? (If yes, assign patient to [facility] schedule) no If no, have they been advised to quarantine due to COVID exposure (<6ft for > 15 mins in 24hr period) or due to travel? (If no, see in [facility]) no *may be determined by RN/DOBBY LOOM CHAIN PEGGER or in discussion with available provider (CCA's can defer to Charge Nurse or Nurse they are working with to complete triage when appropriate) This excludes people that have traveled for essential reasons, or fully covid-vaccinated individuals > 14 days out from date of immunization. documented in this encounter Plan of Treatment Not on filedocumented as of this encounter Visit Diagnoses Diagnosis Partial thickness burn of right wrist, i nitial encounter - Primary documented in this encounter Discontinued Medications Medication Sig Discontinue Reason Start Date End Date doxycycline (VIBRA-TABS) Take 1 Tab by mouth 1 11/24/2020 100 mg tablet 2 times daily for 7 days. documented as of this encounter Historical Medications This list may reflect changes made after this encounter. Medication Sig Dispensed Refills Start Date End Date topiramate (TOPAMAX) 25 mg Take 50 mg by mouth 2 0 11/08/2020 tablet times daily. added in this encounter Care Teams Wood Heel Back Liner Relationship Specialty Start Date End Date Unknown, Provider, PCP - General 11/24/20 documented as of this encounter
--- OUTSIDE RECORDS SUMMARY | 2022-02-27 01:24 | XMS_ITS | Encounter Summary ---
:1980 Author Organization [facility] Address [address] [place] [address] Care Team Providers Name Role Phone Syed Leong MD Primary Care Provider Unavailable Reason for Referral Referral (Routine) - Closed Specialty Diagnoses / Procedures Referred By Contact Refer red To Contact Diagnoses Dizziness and giddiness Jhony Chacon MD [address] [place] [address] [address] [place] [address] Referral ID Status Reason Start Date Expiration Date Visits V isits Requested Authorized [id number] Closed Specialty 11/16/2019 1 1 Services Required Question Answer Reason for Referral: Other Please specify: VHIT Reason for Visit Reason Comments Other ? vestibular schwannoma Encounter Details Date Type Department Care Team Description 11/15/2019 Office Visit [facility] Eriberto Chacon MD Vestibular schwannoma ([facility]) (Primary Dx); ENT- [address] Chronic nonintractable heada bere, unspecified headache type; [address] Subjective tinnitus of left ear; [facility] Chronic fatigue; [address] [place] [address] 4 Dizziness and giddiness [phone] [place] [address] (Wo rk) Social History Tobacco Use Types Packs/Day Years Used Date Former Smoker Cigarettes 10 Quit: 07/13/20 09 Smokeless Tobacco: Never Used Alcohol Use Standard Drinks/Week Comments No 0 (1 standard drink = 0.6 oz pure alcoho l) occ Sex Assigned at Date Recorded Male 03/11/2020 9:13 EDT documented as of this encounter Functional Status [...] making decisions? documented as of this encounter Progress Notes Elder, MD Jc - 11/15/2019 0945 EST Subjective: Patient ID: Flavio Hamm is an 38 y.o. male. seen in consultation at the request of Syed Leong MD for evaluation of left vestibular schwannoma. Chief Complaint Patient presents with ??? Other ? vestibular schwannoma HPI Flavio Hamm is a 38 y.o. male seen in clinic today for evaluation of left sided vestibular schwannoma. He reports that he first noticed hearing loss in 2010 which time audiogram demonstrated left-sided sensorineural deficit with preserved word recognition. Sensorineural deficit persisted and worsened prompting evaluation with MRI. 15mm (including intracanalicular portion) left sided vestibular schwannoma was identified on imaging and is here to discuss management options. Today his primary complaint concerns are chronic daily fatigue which is unremitting. He reports that this is been ongoing for some time however he cannot give a definitive timeframe. In addition to this he has had chronic headache since last January that last for 1 to 2 hours associated with occasional numbness nausea photophobia phonophobia and dizziness. He does report that the dizziness is almost 24/7 worsens with fatigue isnot associated with any partial changes and describes it as a slight swaying motion. He reports thathe takes Dramamine for the nausea with significant improvement in symptoms. He also has vision change in his left eye with a pressure sensation. Reports left sided hearing loss with [id number] tinnitus but finds that white noise is helpful. He does drink lots of coffee but avoids alcohol does notregularly use aspirin. He denies facial weakness however did have an episode of left facial numbnessand bilateral upper and lower extremity numbness on Wednesday prompting him to present to the emergencydepartment for MRI which demonstrated no interval change in the size of his schwannoma. He reports that it took him a long time to get his initial MRI since he has severe claustrophobia and required general anesthesia to ultimately undergo the exam. On his most recent trip to the emergency department he was able to undergo MRI with intravenous drugs for sedation only. He reports that when he attempted an open MRI he was given a benzodiazepine and had a paradoxical reaction he became quite agitated. Patient Active Problem List Diagnosis ??? Left-sided tinnitus ??? Hearing loss in left ear ??? Gastroesophageal reflux disease ??? Low back pain without sciatica ??? Non-recurrent unilateral inguinal hernia without obstruction or gangrene ??? Acoustic neuritis, left Past Medical History: Diagnosis Date ??? Hearing loss Left high frequency with assoc. Tinnitus Past Surgical History: Procedure Laterality Date ??? APPENDECTOMY ??? HERNIA REPAIR 1984 and 2017 Bilateral inguinal ??? LAPAROSCOPIC APPENDECTOMY 05/27/14 Family History Problem Relation Age of Onset ??? Diabetes Mother ??? *Other(comment) Neg Hx ??? Allergic Rhinitis Neg Hx ??? Anesthesia Problem Neg Hx ??? Asthma Neg Hx ??? Bleeding Problem Neg Hx ??? Cancer Neg Hx ??? Hearing Loss Neg Hx ??? Migraines Neg Hx ??? Thyroid Disease Neg Hx Social Social History Socioeconomic History ??? Marital status: Spouse name: Not on file ??? Number of children: Not on file ??? Years of education: Not on file ??? Highest education level: Not on file Occupational History Employer: [employer] Social Needs ??? Financial resource strain: Not on file ??? Food insecurity: Worry: Not on file Inability: Not on file ??? Transportation needs: Medical: Not on file Non-medical: Not on file Tobacco Use ??? Smoking status: Former Smoker Years: 10.00 Types: Cigarettes Last attempt to quit: 03/25/2009 Years since quittin.6 ??? Smokeless tobacco: Never Used Substance and Sexual Activity ??? Alcohol use: No Comment: occ ??? Drug use: No ??? Sexual activity: Not on file Lifestyle ??? Physical activity: Days per week: Not on file Minutes per session: Not on file ??? Stress: Not on file Relationships ??? Social connections: Talks on phone: Not on file Gets together: Not on file Attends jain service: Not on file Active member of club or organization: Not on file Attends meetings of clubs or organizations: Not on file Relationship status: Not on file ??? Intimate partner violence: Fear of current or ex partner: Not on file Emotionally abused: Not on file Physically abused: Not on file Forced sexual activity: Not on file Other Topics Concern ??? Not on file Social History Narrative ??? Not on file No outpatient medications have been marked as taking for the 11/15/19 encounter (Office Visit) with Jhony Chacon MD. Allergies Allergen Reactions ??? Augmentin [Amoxicillin-Pot Clavulanate] Swelling of tongue ??? Naproxen Other (See Comments) Throat swelled 08/18 ??? Sulfa (Sulfonamide Antibiotics) ??? Wellbutrin [Bupropion] Review of Systems Constitutional: Positive for chills, fever and malaise/fatigue. Negative for weight loss. HENT: Positive for ear pain and hearing loss. Negative for congestion and sore throat. Eyes: Positive for blurred vision. Negative for double vision and photophobia. Respiratory: Negative for cough, hemoptysis, shortness of breath and wheezing. Cardiovascular: Negative for chest pain, palpitations, claudication and leg swelling. Gastrointestinal: Positive for heartburn. Musculoskeletal: Positive for joint pain and myalgias. Skin: Negative for rash. Neurological: Positive for sensory change, focal weakness and headaches. Endo/Heme/Allergies: Negative for environmental allergies. Does not bruise/bleed easily. - See HPI Objective: There were no vitals taken for this visit. Physical Exam Department of Otolaryngology PHYSICAL EXAMINATION CONSTITUTIONAL: VITAL SIGNS: Not reviewed APPEARANCE: The patient appears alert, cooperative, and comfortable. ABILITY TO COMMUNICATE / VOICE: Normal HEAD AND FACE: INSPECTION: Normal without apparent scars, lesions, or masses. PALPATION: There are no masses or sinus tenderness. SALIVARY GLANDS: Submandibular and Parotid glands are normal bilaterally FACIAL STRENGTH: Intact and symmetrical bilaterally EXTERNAL EAR & NOSE: No external ear or nose deformity noted EYES: EYES: normal EARS, NOSE, MOUTH AND THROAT: OTOSCOPY: Right external auditory canal: patent and non-inflamed Left external auditory canal: patent and non-inflamed Right tympanic membrane: intact without retraction, perforation or effusion Left tympanic membrane: intact without retraction, perforation or effusion WHISPER/TUNING FORK: Not assessed NOSE: normal turbinates and mucosa: septum in midline LIPS, TEETH & GUMS: normal for age ORAL CAVITY & OROPHARYNX: normal, pink mucosa HYPOPHARYNX & PHARYNGEAL DUONG: Not examined LARYNX: Not examined NASOPHARYNX: Not examined NECK: GENERAL: Supple, no asymmetry or crepitus, trachea midline THYROID: Not examined LYMPHATIC: CERVICAL LYMPH NODES: No pathologic cervical lymphadenopathy noted RESPIRATORY: LUNGS: Not examined CARDIOVASCULAR: CARDIOVASCULAR: Not examined NEUROLOGIC: NEUROLOGIC: Normal mood and affect Imaging Reviewed: Mr Head W Wo Contrast Result Date: 11/12/2019 IMPRESSION: Complex, enhancing predominately intra canalicular lesion left IAC. MR appearance is most suggestive of the left vestibular schwannoma. Accounting for differences in slice selection between this in the patient's prior exam, the size, appearance Mr Head Wo Contrast Result Date: 11/02/2019 Brain: There is an avidly enhancing LEFT internal auditory canal mass measuring 17 x 7 x 6 mm (postcontrast axial series 15 image 8; coronal series 16 image 8). The mass has a smooth contour and a cone-like morphology, highly suspicious for a vestibular schwannoma. Small internal cystic components are visible, also suggestive of a schwannoma (axial fiesta series 10 image 47). Tiny internal foci of susceptibility cannot be excluded, suspicious for either microcalcifications or microhemorrhage. The mass occupies the entirety of the left IAC, bulging slightly into the left cerebellopontine angle. There is no associated mass effect on the adjacent left middle cerebellar peduncle at this time. Neurosur gical consultation is recommended. No contralateral right IAC or cerebellopontine angle mass is identified. The right 7th and 8th cranial nerves are normal in signal and morphology. The cochlea and semicircular canals appear unremarkable bilaterally. No mastoid or middle ear effusion is visible. Assessment: 1. Left vestibular schwannoma: MRI with small vestibular schwannoma that is partially cystic in nature. This is a small bengin lesion and has likely been present since he initially developed hearing loss in 2010. Given its size we would recommend surveillance at this time. We will get a repeat MRI with anesthesia available in 6 months to evaluate for interval change. We discussed that if schwannoma does increase in size there are several treatment options including surgery and radiation therapy. Surgery would result in complete hearing loss on the left and radiation is generally recommended for older individuals with medical comorbidities. Given its size and location would expect that the schwannoma is likely responsible for his hearing loss and tinnitus however we do not see fatigue, headache, vision changes, or trigeminal distribution sensory deficits with lesions of this size as they do not cause increased intracranial pressure nor is it in an anatomical distribution that would cause compression of these cranial nerves. We will discuss his case with neurosurgery. Repeat MRI in 6 months we will see him afterwards. 2. Left SNHL, tinnitus: Today he has left-sided sensorineural hearing loss which is subjectively unchanged since his last audiogram in April. He has preserved hearing on the right side. He does have preserved word recognition on the left. His tinnitus is likely a result of this hearing loss. He wouldlikely benefit from a hearing aid which would not onlyhelp with hearing but may provide some improvement in his tinnitus. - Medical clearance given for hearing aid -Discussed avoidance of aspirin alcohol caffeine and use of white noise machines for tinnitus. 3. Fatigue: He voiced that his most concerning symptom today is chronic severe fatigue. His vestibular schwannoma does not explain these symptoms. 4. Headache: He has bilateral headache associated with nausea photophobia and phonophobia. His vestibular schwannoma is small and unlikely to cause headache. Will refer to neurology for further evaluation. -Referral placed to neurology for evaluation of chronic headache. 5. Dizziness: Vestibular schwannoma typically does not present with dizziness unless enlarged and compressing on the cerebellum. It is possible that there were some hemorrhagic or inflammatory changes causing transient disturbance. Would be worthwhile investigating this further with vestibular testing. To improve the symptoms of dizziness alone, we could also consider intratympanic gentamicin injections. Plan: Flavio was seen today for other. Diagnoses and all orders for this visit: Vestibular schwannoma ([facility]) - MR HEAD W WO CONTRAST; Future Chronic nonintractable headache, unspecified headache type - AMB CONS/FOLLOW UP NEUROLOGY; Future - VHIT balance testing. Jc Friedman MD 11/15/2019 16:43 Otolaryngology Resident PGY-1 documented in this encounter Plan of Treatment Scheduled Referrals Name Type Priority Associated Diagnoses Order S chedule AMB CONS/FOLLOW UP Outpatient Referral Routine Dizziness and O rdered: AUDIOLOGY giddiness 11/16/2019 documented as of this encounter Visit Diagnoses Diagnosis Vestibular schwannoma ([facility]) ([facility]) - Primary Benign neoplasm of cranial nerves Chronic nonintractable headache, unspeci fied headache type Subjective tinnitus of left ear Chronic fatigue Other malaise and fatigue Dizziness and giddiness documented in this encounter Care Teams Materials Planning Manager Relationship Specialty Start Date End Date Syed Leong MD PCP - General 04/08/09 0 documented as of this encounter
--- OUTSIDE RECORDS SUMMARY | 2022-02-27 01:24 | XMS_ITS | Encounter Summary ---
:1980 Author Organization [facility] Address [address] [place] [address] Care Team Providers Name Role Phone Syed Leong MD Primary Care Provider Unavailable Reason for Visit Reason Onset Date Comments Other 2019 Encounter Details Date Type Department Care Team Description 2019 Telephone [facility] Syed Leong MD [facility] Medicine - [address] [address] Social History Tobacco Use Types Packs/Day Years [...] making decisions? documented as of this encounter Miscellaneous Notes Telephone Encounter - Bear Willingham - 11/28/2019 1612 EDT Patient is scheduled with Dr. Leong on 11/30/19 @ 8:45. Bear Willingham elephone Encounter - Syed Leong MD - 11/28/2019 1608 EDT Please call patient back and reschedule a sooner CELE for him. elephone Encounter - Gaby Yu - 2019 0827 EDT Joanie, , is calling because Flavio has been sick for over a year and she believes he is getting rapidly worse. She was concerned that he wanted to cancel his next appointment with Dr. Leong. Sheis hoping that maybe Dr. Leong could help get Flavio seen sooner at [facility]. She is hoping to speak with Dr. Leong if possible. Joanie can be reached at [phone] signed by Gaby Yu at 2019 8:56 EDTdocumented in this encounter Plan of Treatment Not on filedocumented as of this encounter Visit Diagnoses Not on filedocumented in this encounter Care Teams Glass Blowing Instructor Relationship Specialty Start Date End Date Syed Leong MD PCP - General 04/08/09 0 documented as of this encounter
--- OUTSIDE RECORDS SUMMARY | 2022-02-27 01:24 | XMS_ITS | Encounter Summary ---
:1980 Author Organization [facility] Address [address] [place] [address] Care Team Providers Name Role Phone Syed Leong MD Primary Care Provider Unavailable Reason for Referral Cardiology (Routine) - Closed Specialty Diagnoses / Procedures Referred By Contact Refer red To Contact Diagnoses Other fatigue Heart palpitations Syed Leong MD Procedures TRANSTHORACIC ECHO (TTE) COMPLETE [address] [facility] [address] [place] [address] Referral ID Status Reason Start Date Expiration Date Visits Requ ested Visits Authorized [id number] Closed 01/29/2020 07/27/2020 1 1 Reason for Visit Reason Onset Date Comments Referral Request 01/11/2020 Encounter Details Date Type Department Care Team Description 01/11/2020 Telephone [facility] Syed Leong MD Referral Request [facility] [address] [facility] [address] [address] Social History Tobacco Use Types Packs/Day Years [...] been in contact with No / Unsure 01/17/2020 8:35 EDT someone who was confirmed or suspected [...] this encounter Miscellaneous Notes Telephone Encounter - Syed Leong MD - 01/19/2020 0913 EDT I spoke with the patient who will stick with Dr. Whitley. I spoke with Dr. Whitley and told him I would be happy to monitor his potassium and renal function when the new medication is started. Eplerenone apparently acts like spironolactone and will monitor his kidney function and potassium. The doctor said he would contact the patient to let him know, he would send in a prescription and have Fam contact us both when he starts it so we can check his blood work 2 weeks after starting and then periodically thereafter elephone Encounter - Syed Leong MD - 01/12/2020 1722 EDT Wants to see what anesth used before MRI in Oct for sedation--not a good reaction. Having another MRI next week with anesth at [facility]. He will stick with Dr Whitley Still very fatigued. Next step is echo. Very suspicious of chronic fatigue syndrome now. elephone Encounter - Syed Leong MD - 01/12/2020 1141 EDT Called patient to get more info. Left message. elephone Encounter - Iesha Borden RN - 01/11/2020 1618 EDT Left message for to call back regarding questions on medications. Routing to Syed Leong MD for referral piece. Unsure how to pend this referral. Telephone Encounter - Rachel Sonwilda - 01/11/2020 1531 EDT Pts is calling in stating that since they are driving to [facility] so much right now they would likea referral for a retina specialist down in [place]/[facility]. Also, can a nurse call the pt back? She would like to over the medications being used before pts MRIscheduled for 01/17/20. Please advise. documented in this encounter Plan of Treatment Not on filedocumented as of this encounter Visit Diagnoses Diagnosis Other fatigue - Primary Heart palpitations Palpitations documented in this encounter Orders Echocardiography Count Last Ordered Date First Ordered Date TRANSTHORACIC ECHO (TTE) COMPLETE 1 01/12/2020 documented in this encounter Care Teams Propeller Driven Airplane Mechanic Relationship Specialty Start Date End Date Syed Leong MD PCP - General 04/08/09 0 documented as of this encounter
--- OUTSIDE RECORDS SUMMARY | 2022-02-27 01:24 | XMS_ITS | Encounter Summary ---
:1980 Author Organization [facility] Address [address] [place] [address] Care Team Providers Name Role Phone Unknown, Provider Primary Care Provider Encounter Details Date Type Department Care Team Description 02/19/2021 Lab Requisition [facility] Outr Resulting Lab, Pathology & Laboratory Provider [facility] [address] [place], [place] [id number] Social History Tobacco Use Types Packs/Day Years [...] Name Priority Date/Time Associated Diagnosis Comme nts LYME AB Routine 02/19/2021 10:53 EDT Results for this procedure are i n the results section . documented in this encounter Results LYME AB (02/19/2021 10:53 EDT) Pathologist Sig nature Lyme Ab NegativeComment: New Negative [facility] 3rd generation assay LABORATORY SERVICES in use 02/21/2020 Specimen Blood - Venous blood (substance) Performing Organization Address City/State/ZIP Code Phon e Number [facility] [address] [place] [address] SERVICES documented in this encounter Visit Diagnoses Not on filedocumented in this encounter Care Teams Development Professional Relationship Specialty Start Date End Date Unknown, Provider, PCP - General 11/24/20 documented as of this encounter
--- OUTSIDE RECORDS SUMMARY | 2022-02-27 01:24 | XMS_ITS | Clinical Summary ---
:1980 Author Organization [facility] Address [address] [place] [address] Care Team Providers Name Role Phone Unknown, Provider Primary Care Provider Allergies Active Allergy Reactions Severity Noted Date Comments Amoxicillin-Pot Swelling of tongue 08/21/2013 Clavulanate Naproxen Other (See Comments) 07/05/2009 Throat swelled 08/18 Sulfa (Sulfonamide 08/21/2013 Antibiotics) Bupropion 03/01/2014 Medications Medication Sig Dispensed Refills Start Date End Date Status ibuprofen (MOTRIN) 600 Take 600 mg by 0 Active mg tablet mouth every 6 hours as needed for Pain. acetaminophen (TYLENOL) Take 650 mg by 0 Active 325 mg tablet mouth every 4 hours as needed for Pain. omeprazole (PRILOSEC) TAKE 1 CAPSULE BY 90 Cap 3 04/02/2020 Active 40 mg capsule MOUTH EVERY DAY amitriptyline (ELAVIL) Take 75 mg by 0 02/15/2020 Active 25 mg tablet mouth at bedtime. eplerenone (INSPRA) 25 Take 25 mg by 0 02/23/2020 Active mg tablet mouth 2 times daily. topiramate (TOPAMAX) 25 Take 50 mg by 0 11/08/2020 Active mg tablet mouth 2 times daily. Active Problems Patient Care Coordination Note Formatting of this note might be differe nt from the original. Patient has given permission for the [facility] to verbally discuss the following information with Joanie Hamm who has the following relationship to the patient: Spouse/Partner: Scheduling/Appt/Billing/Payment Informat ion (does not include clinical information unless specifically indicated with separate option) Medical Information including symptoms, diagnosis, medications, test results and treatment plan (does not include Mental Health unless specifically indicated with separate option) Mental Health (Behavioral,Psychiatric,Ch emical Dependency) health information, including my symptoms, diagnosis, medications and treatment plan Permission remains in effect until the p atient elects to revoke it. 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 MRI 2 020 Non-recurrent unilateral inguinal hernia without obstr uction or gangrene 10/28/2017 Low back pain without sciatica 04/05/2015 Gastroesophageal reflux disease 10/03/2012 Left-sided tinnitus 12/01/2010 Hearing loss in left ear 12/01/2010 Resolved Problems Problem Noted Date Resolved Date Tobacco dependence syndrome 08/18/2013 03/01/2014 Immunizations Name Administration Dates Next Due DT Vaccine <7YO IM 09/13/1992 Td (Adult) (TDVAX) 2 Lf Vaccine =>7yo IM 02/22/2020 Tdap Vaccine =>7YO IM 04/08/2009 Surgical History Surgery Date Site/Laterality Comments HERNIA REPAIR 1985 and 2018 Bilateral inguin al LAPAROSCOPIC APPENDECTOMY 05/27/2014 APPENDECTOMY CRANIOTOMY 04/11/2020 Left removal of acous tic neuroma [facility] Medical History Medical History Date Comments Hearing loss Left high frequency with assoc. Tinnitus Family History Medical History Relation Name Comments Cancer Father prostate Early Father Hemophilia Father *Other(comment) Neg Hx Allergic Rhinitis Neg Hx Anesthesia Problem Neg Hx Asthma Neg Hx Bleeding Problem Neg Hx Hearing Loss Neg Hx Migraines Neg Hx Thyroid Disease Neg Hx Relation Name Status Comments Brother Alive Brother Alive Brother Alive Father Mother Alive Sister Alive Sister Alive Sister Alive Sister Alive Sister Alive Sister Alive Sister Alive Social History Tobacco Use Types Packs/Day Years Used Date Former Smoker Cigarettes 10 Quit: 03/25/20 09 Smokeless Tobacco: Never Used Tobacco Cessation: Counseling Given: No Alcohol Use Standard Drinks/Week Comments No 0 (1 standard drink = 0.6 oz pure alcoho l) occ Sex Assigned at Date Recorded Male 03/11/2020 9:13 EDT Last Filed Vital Signs Vital Sign Reading Time Taken Comments Blood Pressure 133/92 11/24/2020 1521 EDT Pulse 71 11/24/2020 1521 EDT Temperature 36.8 ??C (98.2 ??F) 11/24/2020 1521 EDT Respiratory Rate 10 02/22/2020 1314 EDT Oxygen Saturation 100% 11/24/2020 1521 EDT Inhaled Oxygen Concentration - - Weight 80.3 kg (177 lb) 03/22/2020 1357 EDT Height 175.3 cm (5' 9) 03/22/2020 1357 EDT Body Mass Index 26.14 03/22/2020 1357 EDT Plan of Treatment Health Maintenance Due Date Last Done Comments Social Determinants Of Health (SDOH) 1980 COVID-19 Vaccine (1) 1986 Behavioral Health Screen 1993 HIV Screening 1997 Advance Directive 11/28/1999 Preventive Care Visit 11/29/2014 11/29/2012 Influenza Immunization (Adult) 06/13/2022 (Season Ended) Tetanus (Adult) Immunization 02/21/2030 02/22/2020, 009, 09/13/1992 Pertussis (Adult) Immunization Completed 04/08/2009 Hepatitis C Screen Completed 06/14/2018, 06/14/2018, 06/14/2018 Insurance Payer Benefit Plan Subscriber ID Effective Phone Address Typ e / Group Dates MEDICAID ACO MEDICAID ACO [id number] 2020-Pres [phone] [address] [place] [address] [facility] [address] (Work) [id number] Flavio Hamm Personal/Family Self 1980 [address] [phone] [place] (Work) [address] Flavio Hamm Personal/Family Self 1980 [address] [phone] [place] (Work) [address] Flavio Hamm Personal/Family Self 1980 [address] [phone] [place] (Work) [address] Flavio Hamm Personal/Family Self 1980 [address] [phone] [place] (Work) [address] Flavio Hamm Personal/Family Self 1980 [address] [phone] [place] (Work) [address] Flavio Hamm Personal/Family Self 1980 [address] [phone] [place] ([place]) [address] Flavio Hamm Personal/Family Self 1980 [address] [phone] [place] (Work) [address] Care Teams Pediatric Nephrologist Relationship Specialty Start Date End Date Unknown, Provider, PCP - General 11/24/20
--- OUTSIDE RECORDS SUMMARY | 2022-02-27 01:24 | XMS_ITS | Encounter Summary ---
:1980 Author Organization [facility] Address [address] [place] [address] Care Team Providers Name Role Phone Syed Leong MD Primary Care Provider Unavailable Reason for Visit Reason Onset Date Comments Results 11/15/2019 Encounter Details Date Type Department Care Team Description 11/15/2019 Telephone [facility] Syed Leong MD [facility] Medicine - [address] [address] Social History Tobacco Use Types Packs/Day Years [...] this encounter Miscellaneous Notes Telephone Encounter - Anderson Person - 11/20/2019 1032 EDT Left message with fileroom to push images; faxed notes with referral to [facility] elephone Encounter - Syed Leong MD - 11/20/2019 0924 EDT Please have [facility] push films to [facility] Please send the Consult note from [facility] to [facility] with the referral elephone Encounter - Bear Willingham - 11/20/2019 0840 EDT Patient's called and stated he was not happy with the answer from [facility], and they do want a referral to [facility] for a second opinion. I faxed the referral to [facility] Connection Line. Bear Willingham elephone Encounter - Syed Leong MD - 11/17/2019 1735 EST I spoke with the patient and reassured him that I think the evaluation he got was good and adequate.I reassured him that it was felt that the tumor was small, benign, and unlikely be causing anything other than the loss of hearing in the tinnitus. I told him we should be getting together to try to assess the other problems he is having such as the fatigue, headache, dizziness and look for sources for those and not assume that it is the acoustic neuroma. elephone Encounter - Lenny Son - 11/16/2019 1606 EST Outreached to pt, since we had a referral to [facility] on file. Pt states [facility] canceled last order since they declined appointment. Pt would like to have Dr Leong look at notes from 11/15/19 and advise about 2nd opinion. He is looking to have a referral sent to [facility] (we can reprint the one we initially sent.) Please advise. Telephone Encounter - Yanet Mathews - 11/16/2019 1252 EST Pt's calling to request request a referral to [facility] elephone Encounter - Alejandra Dunham RN - 11/15/2019 1556 EST Routing to Syed Leong MD. elephone Encounter - Anderson Person - 11/15/2019 1553 EST Pt calling wanting to speak to Dr Leong directly regarding brain tumor and results from [facility]. Pt aware Dr Leong won't be in office until tomorrow documented in this encounter Plan of Treatment Not on filedocumented as of this encounter Visit Diagnoses Not on filedocumented in this encounter Care Teams Clinical Informatics Director Relationship Specialty Start Date End Date Syed Leong MD PCP - General 04/08/09 0 documented as of this encounter
--- OUTSIDE RECORDS SUMMARY | 2022-02-27 01:24 | XMS_ITS | Encounter Summary ---
:1980 Author Organization [facility] Address [address] [place] [address] Care Team Providers Name Role Phone Syed Leong MD Primary Care Provider Unavailable Reason for Referral PT/OT/ST (Routine) - Closed Specialty Diagnoses / Procedures Referred By Contact Refer red To Contact Rehab Therapies Diagnoses Acute pain of right shoulder Monserrat Cooper NP [facility] [address] [address] [place] [address] [address] [place] [address] Referral ID Status Reason Start Date Expiration Date Visits V isits Requested Authorized [id number] Closed Specialty 02/27/2020 1 1 Services Required Question Answer Reason for Request: RTC injury Reason for Visit Reason Comments Pain Consult (3 - 10 Business Days) - Specialty Report Received Specialty Diagnoses / Procedures Referred By Contact Refer red To Contact Diagnoses Acute pain of right shoulder Nitish Lopez NP [address] [facility] [address] [place] [address] Referral ID Status Reason Start Expiration Visits Visits Date Date Requested Authorized [id number] Specialty Specialty 02/22/2020 1 1 Report Services Received Required Encounter Details Date Type Department Care Team Description 02/27/[address] [facility] - Tio Cooper NP Acute pain of right shoulder (Primary Dx ); [facility] Orthopedics & [address] Rotator c uff syndrome of right shoulder [facility] [address] [place] [address] [place] [address] [phone] Social History Tobacco Use Types Packs/Day Years [...] documented as of this encounter Progress Notes Monserrat Cooper, SOM - 02/27/2020 1400 EDTAssociated Order(s): Large Joint Injection/Arthrocentesis: R subacromial bursa CHIEF COMPLAINT: Right shoulder pain - DOI 3-4 weeks ago SUBJECTIVE: Flavio Hamm is a 39 y.o. male who presents today for right shoulder pain which startedabout 3 weeks ago when he was bench pressing weights. Reports he went to push weights up and felt a pull in his shoulder. Pain worsened over the following 24 hours and it's been bugging him since. He has discomfort with he attempts to reach behind his back or when he extends his arm for any reason. Denies weakness, just discomfort with motion. He is not taking pain medication currently. Of note, he is scheduled to have surgery on his acoustic neuroma at [facility] at the end of March. He needs sedation for MRI's given severe claustrophobia. He was unable to tolerate MRI with diazepam in the past. ROS: see HPI above The past medical, family and social history have been reviewed in the patient chart. He quit smokingin 2008. He is here today wit his . . Past Medical History: Diagnosis Date ??? Hearing loss Left high frequency with assoc. Tinnitus Social History Tobacco Use ??? Smoking status: Former Smoker Years: 10.00 Types: Cigarettes Last attempt to quit: 03/25/2009 Years since quittin.9 ??? Smokeless tobacco: Never Used Substance Use Topics ??? Alcohol use: No Comment: occ Past Surgical History: Procedure Laterality Date ??? APPENDECTOMY ??? HERNIA REPAIR 1984 and 2017 Bilateral inguinal ??? LAPAROSCOPIC APPENDECTOMY 05/27/14 Allergies Allergen Reactions ??? Augmentin [Amoxicillin-Pot Clavulanate] Swelling of tongue ??? Naproxen Other (See Comments) Throat swelled 08/18 ??? Sulfa (Sulfonamide Antibiotics) ??? Wellbutrin [Bupropion] Medications Prior to Today's Visit Medication Sig ??? acetaminophen (TYLENOL) 325 mg tablet Take 650 mg by mouth every 4 hours as needed for Pain. ??? ibuprofen (MOTRIN) 600 mg tablet Take 600 mg by mouth every 6 hours as needed for Pain. ??? omeprazole (PRILOSEC) 40 mg capsule TAKE 1 CAPSULE BY MOUTH EVERY DAY (Patient not taking: Reported on 01/17/2020) No facility-administered medications prior to visit. OBJECTIVE: There were no vitals taken for this visit. On physical exam, the patient is found to be a pleasant and cooperative male who appears to be alertand oriented x 3. He is well-developed, well-nourished and in no significant distress. Breathing is unlabored. Skin is warm pink and dry to inspection and palpation. Skin is intact, warm and dry without swelling, erythema, ecchymosis or deformity. No tenderness to palpation over the SC joint, clavicleor AC joint. Full ROM including flexion, extension, abduction and adduction. Full internal and external rotation with some pain during internal rotation. Negative Jobes, mild discomfort with belly press. Pain with lift off but 5/5 strength. No pain with Neers, does have discomfort with Ty. No pain with Yokums. No discomfort over anterior shoulder, some tenderness to palpation over lateral shoulder. 5/5 strength biceps, triceps, deltoids. Neurovascularly intact. Radiographs of the right shoulder were obtained today. No acute osseous abnormality. ASSESSMENT: Rotator cuff injury, right shoulder PLAN: Exam consistent with strain vs partial thickness supraspinatus injury. He does still have goodstrength and range of motion today. Initially, patient and very interested in proceeding with MRI but given patient's reassuring exam today, history of needing general anesthesia due to claustrophobia as well as his scheduled neurosurgery we felt it better to hold off for now. Treatment options discussed and patient interested in subacromial injection today. After reviewing risks and benefits of an injection including variability of results, verbal consent was obtained to proceed today. A timeout was performed. The right shoulder was prepped in the standard sterile fashion.After final verication of the correct site, 80 mg of Depo-Medrol along with an anesthetic was injected into the right subacromial space without difficulty. No medication was wasted. He tolerated the procedure well. Aftercare for the injection was discussed including the use of ice and NSAIDs for pain relief. PT referral placed for strengthening and ROM. Follow up in 4 weeks for reevaluation. If still having discomfort at that time will consider proceeding with MRI. This could possibly be coordinated with a postop head MRI given his need for general anesthesia. Flavio voices understanding and agrees with the plan. Procedure: Large Joint Injection/Arthrocentesis: R subacromial bursa on 02/27/2020 17:47 Medications: 4 mL lidocaine (PF) 10 mg/mL (1 %); 80 mg methylPREDNISolone ACETATE 80 mg/mL This note was prepared using voice recognition software and the EMR. There may be inadvertent errorsand omissions. Monserrat Cooper APRN 02/27/2020 documented in this encounter Plan of Treatment Scheduled Orders Name Type Priority Associated Diagnoses Order S chedule XR SHOULDER RIGHT 2 OR Imaging Routine Acute pain of righ t Ordered: 02/27/2020 MORE VIEWS shoulder Scheduled Referrals Name Type Priority Associated Diagnoses Order S chedule AMB CONS/FOLLOW UP Outpatient Referral Routine Acute pain of r ight Ordered: PHYSICAL THERAPY shoulder 02/27/2020 documented as of this encounter Procedures Procedure Name Priority Date/Time Associated Diagnosis Comme nts BASIC METABOLIC Routine 02/27/2020 15:14 Acute pain of right R esults for this PANEL (BMP) EDT shoulder procedure are i n the results section. LARGE JOINT Routine 02/27/2020 14:00 Rotator cuff Results for this INJECTION/ARTHROCEN EDT syndrome of right pro cedure are in TESIS shoulder the results section. documented in this encounter Results (ABNORMAL) BASIC METABOLIC PANEL (BMP) (02/27/2020 15:14 EDT) BUN - [facility] 29 (H) 10 - 26 mg/dL [facility] CALCIUM - [facility] 9.8 8.5 - 10.5 [facility] mg/dL [facility] Chloride 102 96 - 110 [facility] mmol/L [facility] CO2 Total 28 21 - 32 mEq/L [facility] CREATININE 0.97 0.66 - 1.25 [facility] mg/dL [facility] eGFR >60 [facility] Comment: [facility] Chronic renal impairment is defined as GFR <60 Multiply result by 1.210 for patients . Anion Gap 10 0 - 18 [facility] GLUCOSE - [facility] 90 70 - 100 mg/dL [facility] Potassium 4.3 3.5 - 5.0 [facility] mEq/L [facility] Sodium 140 136 - 145 [facility] mEq/L [facility] Specimen Performing Organization Address City/State/ZIP Code Phon e Number [facility] [address] [place] [address] [place] ARTHROCENTESIS ASPIR&/INJ MAJOR JT/BURSA W/O US (02/27/2020 14:00 EDT) Narrative POINT OF CARE [facility] - 02/27/2020 14:00 E DT Monserrat Cooper, SOM ? 02/29/2020 11:00 Large Joint Injection/Arthrocentesis: R subacromial bursa on 02/27/2020 17:47 Medications: 4 mL lidocaine (PF) 10 mg/m L (1 %); 80 mg methylPREDNISolone ACETATE 80 mg/mL Performing Organization Address City/[facility]/ZIP Code Phon e Number [facility] POINT OF CARE POINT OF CARE [facility] documented in this encounter Visit Diagnoses Diagnosis Acute pain of right shoulder - Primary Rotator cuff syndrome of right shoulder Disorders of bursae and tendons in shoul abhishek region, unspecified documented in this encounter Administered Medications Inactive Administered Medications - up to 3 most recent administrations Medication Order MAR Action Action Date Dose Rate Site lidocaine (PF) 10 mg/mL (1 %) Given 02/27/2020 17:47 EDT 4 mL injection 4 mL 4 mL, other, Once PRN Procedure, 1 dose, Starting on Wed02/27/20 at 1747, Until Wed02/27/20 at 1747, Routine methylPREDNISolone ACETATE (DEPO-MEDROL) Given 02/27/2020 17:47 EDT 80 mg injection 80 mg 80 mg, intra-articular, Once PRN Procedure, 1 dose, Starting on Wed02/27/20 at 1747, Until Wed02/27/20 at 1747, Routine documented in this encounter Care Teams Engraver Relationship Specialty Start Date End Date Syed Leong MD PCP - General 04/08/09 0 documented as of this encounter
--- OUTSIDE RECORDS SUMMARY | 2022-02-27 01:24 | XMS_ITS | Encounter Summary ---
:1980 Author Organization [facility] Address [address] [place] [address] Care Team Providers Name Role Phone Syed Leong MD Primary Care Provider Unavailable Unknown, Provider Primary Care Provider Encounter Details Date Type Department Care Team Description 11/30/2019 Lab Requisition [facility] Unknown, Provider, Pathology & Laboratory [facility] [address] [facility] [place] [address] Social History Tobacco Use Types Packs/Day Years [...] been in contact with No / Unsure 11/29/2019 8:32 EDT someone who was confirmed or suspected [...] Name Priority Date/Time Associated Diagnosis Comme nts ANTI NUCLEAR AB Routine 11/30/2019 10:10 Results for this (FABIOLA), IFA EDT procedure are i n the results section. documented in this encounter Results ANTI NUCLEAR AB (FABIOLA), IFA (11/30/2019 10:10 EDT) Pathologist Sig nature FABIOLA Interpretation Negative Negative [facility] Specimen Blood - Venous blood (substance) Narrative [facility] - 12/01/2019 13:25 EDT Results were obtained with the INOVA NOV A Lite HEp-2 FABIOLA Kit by indirect immunofluorescence. Performing Organization Address City/State/ZIP Code Phon e Number [facility] [address] [place] [address] SERVICES documented in this encounter Visit Diagnoses Not on filedocumented in this encounter Care Teams Pattern Carrier Relationship Specialty Start Date End Date Syed Leong MD PCP - General 04/08/09 0 Unknown, ProviderMD PCP - General 11/24/20 documented as of this encounter
--- OUTSIDE RECORDS SUMMARY | 2022-02-27 01:24 | XMS_ITS | Encounter Summary ---
:1980 Author Organization [facility] Address [address] [place] [address] Care Team Providers Name Role Phone Syed Leong MD Primary Care Provider Unavailable Reason for Visit Reason Onset Date Comments Other 03/07/2020 Encounter Details Date Type Department Care Team Description 03/07/2020 Telephone [facility] Baudilio Shields, Other Orthopedics & Sport [facility] [address] [facility] [address] [place], [place] [address] [place] [address] [id number] (Wo rk) Social History Tobacco Use Types [...] this encounter Miscellaneous Notes Telephone Encounter - Svitlana Toussaint RN - 03/07/2020 1529 EDT Called Flavio and advised order was placed for MRI at [facility] elephone Encounter - Mishel Dunham - 03/07/2020 1238 EDT I went over the MRI form on the phone. Would you like it for signature? elephone Encounter - Monserrat Cooper APRN - 03/07/2020 1120 EDT Yes, thanks Svitlana. [facility] right shoulder without contrast. Rule out rotator cuff tear elephone Encounter - Svitlana Toussaint RN - 03/07/2020 1115 EDT Monserrat, Do you want me to order MRI, if so, please give indications and I will order. elephone Encounter - Mishel Dunham - 03/07/2020 0840 EDT On March 13 you will be seeing Flavio Hamm, 82. He was previously seen and given a cortisone shot in his right shoulder nine days ago by Monserrat Cooper. His called because he has had no relief and is, in fact, in more pain. He wants an MRI-open. I filled out the form with them on the phone and have it. They would like the process of scheduling the MRI to start before the March 13 appointment. documented in this encounter Plan of Treatment Not on filedocumented as of this encounter Visit Diagnoses Diagnosis Rotator cuff syndrome of right shoulder - Primary Disorders of bursae and tendons in shoul abhishek region, unspecified documented in this encounter Care Teams Direct Mail Marketer Relationship Specialty Start Date End Date Syed Leong MD PCP - General 04/08/09 0 documented as of this encounter
--- OUTSIDE RECORDS SUMMARY | 2022-02-27 01:24 | XMS_ITS | Encounter Summary ---
:1980 Author Organization [facility] Address [address] [place] [address] Care Team Providers Name Role Phone Syed Leong MD Primary Care Provider Unavailable Reason for Visit Reason Onset Date Comments Patient Information Update 04/08/2020 Encounter Details Date Type Department Care Team Description 04/08/2020 Telephone [facility] Syed Leong, Erika ent Information Family Medicine - MD Update [address] [place] [address] Social History Tobacco Use Types Packs/Day Years [...] been in contact with No / Unsure 03/22/2020 13:36 EDT someone who was confirmed or suspected [...] this encounter Miscellaneous Notes Telephone Encounter - Iesha Borden RN - 04/10/2020 1412 EDT Pt and notified. elephone Encounter - Syed Leong MD - 04/10/2020 1214 EDT Would not need labs at this time, then. If going back on it after surgery, should have a blood test two weeks later. Please call patient or wife elephone Encounter - Iesha Borden RN - 04/10/2020 0824 EDT Spoke with pt's . Pt has been off Eplerenone x 9 days. [place] [facility] Will be in patient 4-5 days. Not sure what the message regarding labs should be given this information. If we are calling Joanie tomorrow 04/11 she will be at [facility] all days so call her on cell [phone] signed by Iesha Borden RN at 04/10/2020 8:27 EDTTelephone Encounter - Syed Leong MD - 04/10/2020 0657 EDT Please call patient or . Want to confirm when he started the eplerenone (Inspira). It was talkedabout in January, but he never had labs done until February. If he is still on it, he should have another blood test to check on potassium, etc in the next couple of weeks. (not [facility] Need to follow lytes on this medication. elephone Encounter - Bere Maynard - 04/08/2020 1421 EDT Mai at [facility] is calling asking that Dr. Leong calls Dr. Whitley in regards to patient, please advise. documented in this encounter Plan of Treatment Not on filedocumented as of this encounter Visit Diagnoses Not on filedocumented in this encounter Care Teams Mill Turner Relationship Specialty Start Date End Date Syed Leong MD PCP - General 04/08/09 0 documented as of this encounter
--- OUTSIDE RECORDS SUMMARY | 2022-02-27 01:24 | XMS_ITS | Encounter Summary ---
:1980 Author Organization [facility] Address [address] [place] [address] Care Team Providers Name Role Phone Syed Leong MD Primary Care Provider Unavailable Reason for Visit Reason Comments Pre-op Exam Pt is here for a pre op for a MRI under anesthesia. Encounter Details Date Type Department Care Team Description 01/17/2020 Office Visit [facility] Jennifer Petty Pre- op examination (Primary Dx); Family Medicine - J, DEHYDRATING PRESS OPERATOR Left acoustic neuroma (HCC-CMS) [place] [address] [facility] [address] [facility] [address] [place] [id number] Social History Tobacco Use Types Packs/Day Years [...] Sign Reading Time Taken Comments Blood Pressure 126/78 01/17/2020 0849 EDT Pulse 75 01/17/2020 0849 EDT Temperature 36.7 ??C (98.1 ??F) 01/17/2020 0849 EDT Respiratory Rate - - Oxygen Saturation 99% 01/17/2020 0849 EDT Inhaled Oxygen Concentration - - Weight 81.2 kg (179 lb) 01/17/2020 0849 EDT Height 175.9 cm (5' 9.25) 01/17/2020 0849 EDT Body Mass Index 26.24 01/17/2020 0849 EDT documented in this encounter Functional Status Functional [...] documented as of this encounter Progress Notes Jennifer Petty APRN - 01/17/2020 0915 EDT Preoperative H&P Patient ID: Flavio Hamm is an 39 y.o. male. :1980 Date of Service: 01/17/2020 Chief Complaint: Chief Complaint Patient presents with ??? Pre-op Exam Pt is here for a pre op for a MRI under anesthesia. Planned Procedure: MRI under anesthesia Surgeon: N/A, [facility] anesthesiology Planned Procedure Date: 01/19/2020 Problem List Available or Initiated: yes Subjective: HISTORY OF PRESENT ILLNESS: 39-year-old male seen today for a preop examination to get an MRI done under anesthesia. Patient will getting an MRI of his spine completed at [facility] on 01/19/2020 at 7:50 AM. Patient does have acoustic neuroma. Is seen by both ENT and neurology. Patient had an MRI done under anesthesia previously. Last MRI he received 3 doses of Versed and successfully got the testing done. He does report a reaction to diazepam causing agitation. Patient reports that he is feeling well overall, no recent illnesses. Denies fever, cough, shortnessof breath. No cardiac history, no cardiac symptoms. Cardiovascular or pulmonary risk factors: none Prior h/o of anesthetic complications: no Prior h/o bleeding problems: no Prior h/o DVT/PE: no Prior h/o infections (VRE, MRSA): no Reaction to tape or latex: no Family history of anesthetic complications, bleeding problems or DVT/PE: no. Patient Active Problem List Diagnosis ??? Left-sided tinnitus ??? Hearing loss in left ear ??? Gastroesophageal reflux disease ??? Low back pain without sciatica ??? Non-recurrent unilateral inguinal hernia without obstruction or gangrene ??? Left acoustic neuroma (HCC-CMS) ??? Chronic intractable headache ??? Chronic fatigue ??? Dizziness ??? 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 Hearing loss Left high frequency with assoc. Tinnitus Past Surgical History: Procedure Laterality Date ??? APPENDECTOMY ??? HERNIA REPAIR 1985 and 2018 Bilateral inguinal ??? LAPAROSCOPIC APPENDECTOMY 05/27/14 Social History Tobacco Use ??? Smoking status: Former Smoker Years: 10.00 Types: Cigarettes Last attempt to quit: 03/25/2009 Years since quittin.8 ??? Smokeless tobacco: Never Used Substance Use Topics ??? Alcohol use: No Comment: occ ??? Drug use: No Family History Problem Relation Age of Onset ??? Cancer Father 30 prostate ??? Hemophilia Father ??? Early Father 30 ??? *Other(comment) Neg Hx ??? Allergic Rhinitis Neg Hx ??? Anesthesia Problem Neg Hx ??? Asthma Neg Hx ??? Bleeding Problem Neg Hx ??? Hearing Loss Neg Hx ??? Migraines Neg Hx ??? Thyroid Disease Neg Hx Allergies Allergen Reactions ??? Augmentin [Amoxicillin-Pot Clavulanate] Swelling of tongue ??? Naproxen Other (See Comments) Throat swelled / ??? Sulfa (Sulfonamide Antibiotics) ??? Wellbutrin [Bupropion] Current Outpatient Medications Medication Sig Dispense Refill ??? acetaminophen (TYLENOL) 325 mg tablet Take 650 mg by mouth every 4 hours as needed for Pain. ??? ibuprofen (MOTRIN) 600 mg tablet Take 600 mg by mouth every 6 hours as needed for Pain. ??? omeprazole (PRILOSEC) 40 mg capsule TAKE 1 CAPSULE BY MOUTH EVERY DAY (Patient not taking: Reported on 01/17/2020) 90 Cap 3 No current facility-administered medications for this visit. Review of Systems Constitutional: Negative for chills, fever and malaise/fatigue. HENT: Positive for hearing loss. Negative for congestion and sore throat. Eyes: Negative for pain and redness. Respiratory: Negative for cough and shortness of breath. Cardiovascular: Negative for chest pain, palpitations and leg swelling. Gastrointestinal: Negative for abdominal pain. Skin: Negative for rash. Neurological: Positive for dizziness and headaches. Objective: BP 126/78 (BP Cuff Location: Right arm, BP Patient Position: Sitting, BP Cuff Sizes: Adult, regular) Pulse 75 Temp 36.7 ??C (98.1 ??F) (Oral) Ht 175.9 cm (69.25) Wt 81.2 kg (179 lb) SpO2 99% BMI 26.24 kg/m?? Body mass index is 26.24 kg/m??. Physical Exam Constitutional: He is oriented to person, place, and time. He appears well- developed and well-nourished. HENT: Head: Normocephalic and atraumatic. Right Ear: External ear normal. Left Ear: External ear normal. Mouth/Throat: Oropharynx is clear and moist. No oropharyngeal exudate. Oropharynx is clear. Eyes: Pupils are equal, round, and reactive to light. Conjunctivae and EOM are normal. Neck: Normal range of motion. Neck supple. Cardiovascular: Normal rate, regular rhythm, normal heart sounds and intact distal pulses. Pulmonary/Chest: Effort normal and breath sounds normal. Abdominal: Soft. Bowel sounds are normal. Musculoskeletal: Normal range of motion. Lymphadenopathy: He has no cervical adenopathy. Neurological: He is alert and oriented to person, place, and time. Skin: Skin is warm and dry. Psychiatric: He has a normal mood and affect. His behavior is normal. Judgment and thought content normal. EKG: N/A Assessment: 1. Pre-op examination 2. Left acoustic neuroma ([facility]) No contraindications to planned surgery Plan: Proceed with surgery as planned. No food or liquids the morning of surgery. Call surgeon if develops respiratory illness, fever, or other illness. Jennifer Petty APRN 01/17/2020 9:33 If MD is billing provider, the DEHYDRATING PRESS OPERATOR or PA must attest: Dr. Dasilva was the attending physician available in the clinic today if needed. A consultation was not required. documented in this encounter Plan of Treatment Not on filedocumented as of this encounter Visit Diagnoses Diagnosis Pre-op examination - Primary Preoperative examination, unspecified Left acoustic neuroma (HCC-CMS) (HCC) Benign neoplasm of cranial nerves documented in this encounter Care Teams Oil Derrick Operator Relationship Specialty Start Date End Date Syed Leong MD PCP - General 04/08/09 0 documented as of this encounter
--- OUTSIDE RECORDS SUMMARY | 2022-02-27 01:24 | XMS_ITS | Encounter Summary ---
:1980 Author Organization [facility] Address [address] [place] [address] Care Team Providers Name Role Phone Syed Leong MD Primary Care Provider Unavailable Reason for Visit Reason Onset Date Comments Dizziness 11/10/2019 Encounter Details Date Type Department Care Team Description 11/10/2019 Telephone [facility] Syed Leong MD Dizziness Medicine - [address] [address] Social History Tobacco Use Types Packs/Day Years Used Date Former Smoker Cigarettes 10 Quit: 03/25/20 09 Smokeless Tobacco: Never Used Alcohol Use Standard Drinks/Week Comments No 0 (1 standard drink = 0.6 oz pure alcoho l) occ Sex Assigned at Date Recorded Male 03/11/2020 9:13 EDT documented as of this encounter Miscellaneous Notes Telephone Encounter - Alejandra Dunham RN - 11/10/2019 1653 EST Patient notified. elephone Encounter - Syed Leong MD - 11/10/2019 1641 EST Headaches:OTC analgesics as needed Dizziness: OTC meclizine (dramamine) If any of the above severe, would be a trip to the ER. elephone Encounter - Kirsty Montoya RN - 11/10/2019 1536 EST Patient symptoms are worse, headaches and dizziness. Has an appointment at [facility] next Wednesday and would to know what he can do until then? elephone Encounter - Lenny Son - 11/10/2019 1532 EST Headaches are getting worse, dizziness, extending down into his neck. Left side. documented in this encounter Plan of Treatment Not on filedocumented as of this encounter Visit Diagnoses Not on filedocumented in this encounter Care Teams Socket Puller Relationship Specialty Start Date End Date Syed Leong MD PCP - General 04/08/09 0 documented as of this encounter
--- OUTSIDE RECORDS SUMMARY | 2022-02-27 01:24 | XMS_ITS | Encounter Summary ---
:1980 Author Organization [facility] Address [address] [place] [address] Care Team Providers Name Role Phone Syed Leong MD Primary Care Provider Unavailable Reason for Referral Laboratory Services (Routine/Next Available) - New Request Specialty Diagnoses / Procedures Referred By Contact Refer red To Contact Diagnoses Chronic Syed Watson MD Procedures ANTI NUCLEAR AB (FABIOLA), IFA [address] [facility] [address] [address] Referral ID Status Reason Start Date Expiration Date Visits V isits Requested Authorized [id number] New Request 11/30/2019 1 1 aboratory Services (Routine) - New Request Specialty Diagnoses / Procedures Referred By Contact Refer red To Contact Diagnoses Syed Piper MD Procedures THYROID CASCADE [address] [facility] [address] [place] [address] Referral ID Status Reason Start Date Expiration Date Visits V isits Requested Authorized [id number] New Request 11/30/2019 1 1 aboratory Services (Routine) - New Request Specialty Diagnoses / Procedures Referred By Contact Refer red To Contact Diagnoses Syed Piper MD Procedures C REACTIVE PROTEIN [address] [facility] [address] [place] [address] Referral ID Status Reason Start Date Expiration Date Visits V isits Requested Authorized [id number] New Request 11/30/2019 1 1 aboratory Services (Routine) - New Request Specialty Diagnoses / Procedures Referred By Contact Refer red To Contact Diagnoses Chronic fatigue Syed Leong MD Procedures COMPLETE BLOOD COUNT AND DIFFERENTIAL [address] [facility] [address] [place] [address] Referral ID Status Reason Start Date Expiration Date Visits V isits Requested Authorized [id number] New Request 11/30/2019 1 1 aboratory Services (Routine) - New Request Specialty Diagnoses / Procedures Referred By Contact Refer red To Contact Diagnoses Chronic fatigue Syed Leong MD Procedures COMPREHENSIVE METABOLIC PANEL (CMP) [address] [facility] [address] [place] [address] Referral ID Status Reason Start Date Expiration Date Visits V isits Requested Authorized [id number] New Request 11/30/2019 1 1 adiology Services (Routine) - Authorization Not Required Specialty Diagnoses / Procedures Referred By Contact Refer red To Contact Diagnoses Neck pain Syed Leong MD Procedures XR CERVICAL SPINE 4-5 VIEWS [address] [facility] [address] [place] [address] Referral ID Status Reason Start Expiration Visits Visits Date Date Requested Authorized [id number] Authorization Not 11/30/2019 1 1 Required Reason for Visit Reason Comments Headache Pt. here for headaches Fatigue Pt. here for fatigue Neck Pain Pt. here for neck pain Encounter Details Date Type Department Care Team Description 11/30/2019 Office Visit [facility] Syed Leong Chronic intractable headache, unspecified headache type (Primary Dx); Family Medicine - MD Sonya Neck pain; [place] Chronic fatigue; 130 [facility] Dizziness; [address] Left acoustic neuroma (HCC-C MS) [place] [address] Social History Tobacco Use Types Packs/Day Years Used Date Former Smoker Cigarettes 10 Quit: 03/25/20 09 Smokeless Tobacco: Never Used Tobacco Cessation: Counseling Given: Yes Alcohol Use Standard Drinks/Week Comments No 0 [...] Sign Reading Time Taken Comments Blood Pressure 120/82 11/30/2019 0846 EDT Pulse 64 11/30/2019 0846 EDT Temperature - - Respiratory Rate - - Oxygen Saturation 100% 11/30/2019 0846 EDT Inhaled Oxygen Concentration - - Weight 79.4 kg (175 lb) 11/30/2019 0846 EDT Height - - Body Mass Index 26.22 03/20/2019 1603 EDT documented in this encounter Functional Status [...] documented as of this encounter Progress Notes Syed Leong MD - 11/30/2019 0845 EDT Subjective: Patient ID: Flavio Hamm is an 39 y.o. male. Chief Complaint Patient presents with ??? Headache Pt. here for headaches ??? Fatigue Pt. here for fatigue ??? Neck Pain Pt. here for neck pain HPI Fam is here with his to discuss a year-long history of headaches, neck pain, dizziness, fatigueand more. He did fall off of a roof and hit his neck and head in July 2018. For couple of days he was fairly sore, had dizziness, headache, neck pain and did not feel well but recovered and was never checked. He never had any loss of consciousness. Then starting in October or November a year ago he began having problems that included left neck pain which would then radiate up into the left side of his head becoming significant headache which could then radiate to the right hindu area. It could be 6???7/10 in intensity. Sharp type feeling. Is beenhappening daily. He does not usually wake up with it but it will occur later in the day without any particular trigger known. Nothing seems to make it worse and nothing including Tylenol or ibuprofen make it any better. Once he has the headache he will develop very bad fatigue which is disabling. He is unable to continue to perform his physical activities. The fatigue then lasts the rest of the day. Falling asleep at 6-7 because he can't stay awake. Then sleeps about 10 hours. He is also been having dizziness episodes. Eyes out of focus, feels unsteady. Happens while having the LIGHT's. Does not feel like he is going to pass out or get lightheaded. May get some nausea with the dizziness. Dramamine helps some with the dizziness/nausea. Two episodes of facial numbness. The lower left lip and left chin. Lasted up to two hours. He was seen in the emergency room a month ago following 1 of these episodes and had repeat MRI of the brain which showed stable appearing acoustic neuroma on the left. Palpitations at night at time. Can get tingling in hands. Has had some sweating episodes. Gets cold easily. Can get worse vision in the left eye and feeling of pressure. Happens when gets the Light's but it can also get worse at other times as well. Mental function/acuity/memory not as good. Works out consistently. Previous smoker and stopped 05/2017. Last year he was seen at an immediate care facility and diagnosed with Lyme disease on a clinical basis because of the above symptoms. He was initially treated with doxycycline for a month followed by 8 months of cefuroxime. Because he was getting better he finally stopped the antibiotics. 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 He had negative Lyme testing as well as negative tick panel. He also had bloodwork done last March which was nonrevealing. He has had left hearing loss since 2010 at which time an audiogram demonstrated left-sided sensorineural deficit. He was evaluated an MRI a month ago showing a left acoustic neuroma. He was seen at [facility] Dr. Chacon who felt this is a benign acoustic neuroma and felt at this point the only follow-up would be an MRI in 6 months. He did not feel that his headaches, dizziness, fatigue had anything to dowith this. Patient Active Problem List Diagnosis ??? Left-sided tinnitus ??? Hearing loss in left ear ??? Gastroesophageal reflux disease ??? Low back pain without sciatica ??? Non-recurrent unilateral inguinal hernia without obstruction or gangrene ??? Left acoustic neuroma (HCC-CMS) ??? Chronic intractable headache ??? Chronic fatigue ??? Dizziness Past Medical History: Diagnosis Date ??? Hearing loss Left high frequency with assoc. Tinnitus Current Outpatient Medications on File Prior to Visit Medication Sig Dispense Refill ??? acetaminophen (TYLENOL) 325 mg tablet Take 650 mg by mouth every 4 hours as needed for Pain. ??? ibuprofen (MOTRIN) 600 mg tablet Take 600 mg by mouth every 6 hours as needed for Pain. ??? omeprazole (PRILOSEC) 40 mg capsule TAKE 1 CAPSULE BY MOUTH EVERY DAY 90 Cap 3 No current facility-administered medications on file prior to visit. Allergies Allergen Reactions ??? Augmentin [Amoxicillin-Pot Clavulanate] Swelling of tongue ??? Naproxen Other (See Comments) Throat swelled 08/18 ??? Sulfa (Sulfonamide Antibiotics) ??? Wellbutrin [Bupropion] Social Social History Tobacco Use ??? Smoking status: Former Smoker Years: 10.00 Types: Cigarettes Last attempt to quit: 03/25/2009 Years since quittin.6 ??? Smokeless tobacco: Never Used Substance Use Topics ??? Alcohol use: No Comment: occ ??? Drug use: No Review of Systems Constitutional: Negative for weight loss. HENT: Positive for hearing loss and tinnitus. Eyes: Left eye--see HPI Respiratory: Negative for cough and shortness of breath. Cardiovascular: Negative for chest pain and leg swelling. Gastrointestinal: Positive for nausea. Negative for abdominal pain, constipation, diarrhea and heartburn. Genitourinary: Negative for frequency and hematuria. Musculoskeletal: Positive for neck pain. Negative for joint pain and myalgias. Skin: Negative for rash. Neurological: Positive for dizziness and headaches. Negative for tremors, sensory change, focal weakness and weakness. Psychiatric/Behavioral: Negative for depression. The patient does not have insomnia. - See HPI Objective: BP 120/82 (BP Cuff Location: Right arm, BP Patient Position: Sitting, BP Cuff Sizes: Adult, regular) Pulse 64 Wt 79.4 kg (175 lb) SpO2 100% BMI 26.22 kg/m?? Physical Exam Constitutional: No distress. HENT: Right Ear: Tympanic membrane and ear canal normal. Left Ear: Tympanic membrane and ear canal normal. Mouth/Throat: Oropharynx is clear and moist. Eyes: Conjunctivae are normal. No scleral icterus. Neck: Normal range of motion. No thyromegaly present. Cardiovascular: Normal rate, regular rhythm and normal heart sounds. Pulses: Dorsalis pedis pulses are 2+ on the right side, and 2+ on the left side. Pulmonary/Chest: Effort normal and breath sounds normal. Abdominal: Soft. Bowel sounds are normal. He exhibits no mass. There is no tenderness. Musculoskeletal: He exhibits no edema. Lymphadenopathy: He has no cervical adenopathy. Neurological: He is alert. He has normal strength. He displays no tremor. No cranial nerve deficit or sensory deficit. Gait normal. Reflex Scores: Tricep reflexes are 2+ on the right side and 2+ on the left side. Bicep reflexes are 2+ on the right side and 2+ on the left side. Brachioradialis reflexes are 2+ on the right side and 2+ on the left side. Patellar reflexes are 2+ on the right side and 2+ on the left side. Achilles reflexes are 2+ on the right side and 2+ on the left side. Skin: No petechiae and no rash noted. No pallor. Psychiatric: He has a normal mood and affect. His behavior is normal. Assessment: Unclear etiology as to how to put this altogether with one diagnosis. I am wondering whether there might be more than 1 diagnosis. The neck pain could be related to his injury from the fall which mightbe then triggering headaches. There also could be an element of trigeminal neuralgia though the headache pattern is atypical for that. He has had brain imaging without showing cerebral cause and it is not felt that his acoustic neuroma could be causing this. Chronic migraine is a possibility, chronic daily headache also. Or could be more systemic. The fatigue seems quite profound and disabling, this in a young, seemingly healthy man who has been very physically active and now finding it very hard to maintain a normal level of physical activity. There are no other obvious historical or physical examination causes for this. He did have a lot of normal blood work done last March but I think is worth repeating. I do not think this is infectious in nature. I wonder whether he could have developed a chronic fatigue syndrome. Plan 1??? labs as below 2??? x-ray of the cervical spine 3??? will probably refer to neurology for other ideas. 4??? could consider trial of medication for migraine prophylaxis or chronic daily headache treatment. Plan: Flavio was seen today for headache, fatigue and neck pain. Diagnoses and all orders for this visit: Chronic intractable headache, unspecified headache type Neck pain - XR CERVICAL SPINE 4-5 VIEWS - COMPLETE BLOOD COUNT WITH DIFFERENTIAL (AUTO) Chronic fatigue - COMPREHENSIVE METABOLIC PANEL (CMP) - COMPLETE BLOOD COUNT AND DIFFERENTIAL - C REACTIVE PROTEIN - THYROID CASCADE - ANTI NUCLEAR AB (FABIOLA), IFA Dizziness Left acoustic neuroma (HCC-CMS) No follow-ups on file. documented in this encounter Plan of Treatment Scheduled Orders Name Type Priority Associated Diagnoses Order S chedule XR CERVICAL SPINE 4-5 VIEWS Imaging Routine Neck pain Ordered: 11/30/2019 COMPREHENSIVE METABOLIC Lab Routine Chronic fatigue O rdered: 11/30/2019 PANEL (CMP) COMPLETE BLOOD COUNT AND Lab Routine Chronic fatigue Ordered: 11/30/2019 DIFFERENTIAL C REACTIVE PROTEIN Lab Routine Chronic fatigue Ordere d: 11/30/2019 ANTI NUCLEAR AB (FABIOLA), IFA Lab Routine Chronic fatigu e Ordered: 11/30/2019 documented as of this encounter Procedures Procedure Name Priority Date/Time Associated Comments Diagnosis ANTI NUCLEAR AB (FABIOLA), Routine 11/30/2019 10:10 Chronic intrac table Results for this IFA EDT headache, procedure are i n unspecified the results headache type section. THYROID CASCADE Routine 11/30/2019 10:09 Chronic fatigue Resul ts for this EDT procedure are i n the results section. C REACTIVE PROTEIN Routine 11/30/2019 10:09 Chronic intractabl e Results for this EDT headache, procedure are i n unspecified the results headache type section. COMPREHENSIVE Routine 11/30/2019 10:09 Chronic intractable Res ults for this METABOLIC PANEL (CMP) EDT headache, proced ure are in unspecified the results headache type section. COMPLETE BLOOD COUNT Routine 11/30/2019 10:05 Neck pain Res ults for this WITH DIFFERENTIAL EDT procedure are in (AUTO) the results section. documented in this encounter Results ANTI NUCLEAR AB (FABIOLA), IFA (11/30/2019 10:10 EDT) FABIOLA Interpretation Negative Negative [facility] Comment: [facility] Results were obtained with the [employer] NOVA Lite HEp-2 A NA Kit by indirect immunofluorescence. Test performed or referred by The [address] [facility] - 020 15:28 EDT Does PT Have a Latex Allergy? NO Performing Organization Address City/State/ZIP Code Phon e Number [facility] [address] [place] [address] [facility] C REACTIVE PROTEIN (11/30/2019 10:09 EDT) Pathologist Sig nature C-Reactive Protein <5.0 <10.0 mg/L [facility] Specimen Narrative [facility] - 020 11:05 EDT Does PT Have a Latex Allergy? NO Performing Organization Address [facility] Code Phon e Number [facility] [address] [place] [address] [facility] (ABNORMAL) COMPREHENSIVE METABOLIC PANEL (CMP) (11/30/2019 10:09 EDT) ALBUMIN - [facility] 4.6 3.4 - 4.9 [facility] g/dL [facility] ALKALINE 51 38 - 126 U/L [facility] PHOSPHATASE - [facility] BILIRUBIN TOTAL 0.4 0.2 - 1.3 [facility] mg/dL [facility] BUN - [facility] 25 10 - 26 mg/dL [facility] CALCIUM - [facility] 9.5 8.5 - 10.5 [facility] mg/dL [facility] Chloride 101 96 - 110 [facility] mmol/L [facility] CO2 Total 30 21 - 32 mEq/L [facility] CREATININE 0.86 0.66 - 1.25 [facility] mg/dL [facility] eGFR >60 [facility] Comment: [facility] Chronic renal impairment is defined as GFR <60 Multiply result by 1.210 for patients . Anion Gap 7 0 - [address] [facility] GLUCOSE - [facility] 78 70 - 100 [facility] mg/dL [facility] Potassium 4.4 3.5 - 5.0 [facility] mEq/L [facility] Sodium 138 136 - 145 [facility] mEq/L [facility] TOTAL PROTEIN - 7.2 6.2 - 8.2 [facility] gm/dL [facility] SGOT/AST - [facility] 46 17 - 59 U/L [facility] SGPT/ALT - [facility] 52 (H) 0 - 50 U/L [facility] Specimen Narrative [facility] - 020 11:05 EDT Does PT Have a Latex Allergy? NO Performing Organization Address City/[facility] Code Phon e Number [facility] [address] LAB THYROID CASCADE (11/30/2019 10:09 EDT) Pathologist Sig nature TSH 1.77 0.46 - 4.68 uIU/mL [facility] Specimen Blood - Venous blood (substance) Narrative [facility] - 020 11:35 EDT Does PT Have a Latex Allergy? NO Performing Organization Address City/[facility]/ZIP Code Phon e Number [facility] [address] LAB COMPLETE BLOOD COUNT WITH DIFFERENTIAL (AUTO) (11/30/2019 10:05 EDT) Pathologist Sig nature Gran # 3.3 2.2 - 8.85 [facility] 10e3/uL [facility]ENTER [facility] BASO # - [facility] 0.03 0.01 - 0.11 [facility] 10e/uL [facility] BASO % - [facility] 1 0 - 2 % [facility] EOS # - [facility] 0.08 0.03 - 0.61 [facility] 10e3/ul [facility] EOS % - [facility] 2 0 - 5 % [facility] GRAN % - [facility] 61.1 40 - 80 % [facility] HEMATOCRIT - [facility] 43.1 39.5 - 50.2 % [facility] HEMOGLOBIN - CV 14.6 13.8 - 17.3 g/dl [facility] IG# - [facility] 0.01 0 - 0.7 10e3/uL [facility] IG% - [facility] 0.2 0 - 0.9 % [facility] LYMPH # - [facility] 1.7 1.09 - 3.3 [facility] 10e3/ul CENTER LAB LYMPH% - [facility] 30.8 20 - 40 % [facility] MEAN CORPUSCULAR HGB - 30.7 27.6 - 33.0 pg [facility] MEAN CORPUSCULAR HGB 33.9 32.8 - 36.4 g/dL [facility] CONC - [facility]ENTER LAB MEAN CELL VOLUME - 90.5 81 - 95 fl [facility] MONO # - [facility] 0.3 0.1 - 0.8 [facility] 10e3/uL [facility] MONO% - [facility] 5.9 0 - 12 % [facility] PLATELET COUNT 199 141 - 377 [facility] 10e3/ul [facility] RED BLOOD COUNT - [facility] 4.76 4.36 - 5.78 [facility] D 10e3/ul [facility] RED CELL DISTRI WIDTH 12.0 <14.2 % [facility] LAB WHITE BLOOD COUNT - 5.5 4.0 - 10.4 [place] [id number]/[facility] Specimen Narrative [facility] - 020 10:46 EDT Does PT Have a Latex Allergy? NO Performing Organization Address City/State/ZIP Code Phon e Number [facility] [address] LAB documented in this encounter Visit Diagnoses Diagnosis Chronic intractable headache, unspecifie d headache type - Primary Neck pain Cervicalgia Chronic fatigue Other malaise and fatigue Dizziness Dizziness and giddiness Left acoustic neuroma (HCC-CMS) (HCC) Benign neoplasm of cranial nerves documented in this encounter Care Teams Returns Processor Relationship Specialty Start Date End Date Syed Leong MD PCP - General 04/08/09 0 documented as of this encounter
--- OUTSIDE RECORDS SUMMARY | 2022-02-27 01:24 | XMS_ITS | Encounter Summary ---
:1980 Author Organization [facility] Address [address] [place] [address] Care Team Providers Name Role Phone Syed Leong MD Primary Care Provider Unavailable Reason for Visit Reason Onset Date Comments Medications Refill 04/01/2020 Encounter Details Date Type Department Care Team Description 04/01/2020 Refill [facility] Syed Leong MD Medications Refill [address] [address] Social History Tobacco Use Types Packs/Day Years [...] making decisions? documented as of this encounter Ordered Prescriptions Prescription Sig Dispensed Refills Start Date End Date omeprazole (PRILOSEC) 40 TAKE 1 CAPSULE BY 90 Cap 3 03/14 mg capsule MOUTH EVERY DAY documented in this encounter Miscellaneous Notes Telephone Encounter - Leodan Garnett RN - 04/02/2020 1519 EDT Medication(s) Requested: Omeprazole Preferred [facility]acy: [facility] Is patient out of medication? Unknown Last Refill Date: 04/17/19 Last Visit Date with Ordering Provider: 11/30/19 Next Non-Acute Visit Date Scheduled with Care Team: No. Renewed LEODAN GARNETT RN 04/02/2020 15:20 documented in this encounter Plan of Treatment Not on filedocumented as of this encounter Visit Diagnoses Not on filedocumented in this encounter Discontinued Medications Medication Sig Discontinue Reason Start Date End Date omeprazole (PRILOSEC) 40 TAKE 1 CAPSULE BY 04/17/2019 04/02/2020 mg capsule MOUTH EVERY DAY documented as of this encounter Care Teams Outreach Librarian Relationship Specialty Start Date End Date Syed Leong MD PCP - General 04/08/09 0 documented as of this encounter
--- OUTSIDE RECORDS SUMMARY | 2022-02-27 01:24 | XMS_ITS | Encounter Summary ---
:[address] [facility] Address [address] [place] [address] Care Team Providers Name Role Phone Syed Leong MD Primary Care Provider Unavailable Encounter Details Date Type Department Care Team Description 01/17/2020 Travel Social History Tobacco Use Types Packs/Day [...] on filedocumented in this encounter Care Teams Intraoperative Neuro Tech Relationship Specialty Start Date End Date Syed Leong MD PCP - General 04/08/09 0 documented as of this encounter
--- OUTSIDE RECORDS SUMMARY | 2022-02-27 01:24 | XMS_ITS | Encounter Summary ---
:1980 Author Organization [facility] Address [address] [place] [address] Care Team Providers Name Role Phone Syed Leong MD Primary Care Provider Unavailable Encounter Details Date Type Department Care Team Description 02/22/2020 Travel Social History Tobacco Use Types Packs/Day [...] been in contact with No / Unsure 02/22/2020 12:55 EDT someone who was confirmed or suspected [...] on filedocumented in this encounter Care Teams Part Time Relationship Specialty Start Date End Date Syed Leong MD PCP - General 04/08/09 0 documented as of this encounter
--- OUTSIDE RECORDS SUMMARY | 2022-02-27 01:24 | XMS_ITS | Encounter Summary ---
:1980 Author Organization [facility] Address [address] [place] [address] Care Team Providers Name Role Phone Syed Leong MD Primary Care Provider Unavailable Encounter Details Date Type Department Care Team Description 11/20/2019 Travel Social History Tobacco Use Types Packs/Day [...] on filedocumented in this encounter Care Teams Water Hauler Relationship Specialty Start Date End Date Syed Leong MD PCP - General 04/08/09 0 documented as of this encounter
--- OUTSIDE RECORDS SUMMARY | 2022-02-27 01:24 | XMS_ITS | Encounter Summary ---
:1980 Author Organization [facility] Address [address] [place] [address] Care Team Providers Name Role Phone Unavailable Primary Care Provider Unavailable Encounter Details Date Type Department Care Team Description 05/23/2020 - Hospital Encounter [facility] No Show 05/24/2020 [facility] [place] Pre-Surgical Testing [address] [place] [address] Social History Tobacco Use Types Packs/Day Years [...] making decisions? documented as of this encounter Medications at Time of Discharge Medication Sig Dispensed Refills Start Date End Date acetaminophen (TYLENOL) 325 Take 650 mg by mouth 0 mg tablet every 4 hours as needed for Pain. amitriptyline (ELAVIL) 25 Take 75 mg by mouth 0 0 02/15/2020 mg tablet at bedtime. eplerenone (INSPRA) 25 mg Take 25 mg by mouth 0 0 02/23/2020 tablet 2 times daily. ibuprofen (MOTRIN) 600 mg Take 600 mg by mouth 0 tablet every 6 hours as needed for Pain. omeprazole (PRILOSEC) 40 mg TAKE 1 CAPSULE BY 90 Cap 3 0 04/02/2020 capsule MOUTH EVERY DAY documented as of this encounter Discharge Disposition Disposition Code Departure Means Destination Home or Self Care documented in this encounter Plan of Treatment Not on filedocumented as of this encounter Visit Diagnoses Not on filedocumented in this encounter
--- OUTSIDE RECORDS SUMMARY | 2022-02-27 01:24 | XMS_ITS | Encounter Summary ---
:1980 Author Organization [facility] Address [address] [place] [address] Care Team Providers Name Role Phone Syed Leong MD Primary Care Provider Unavailable Unknown, Provider Primary Care Provider Encounter Details Date Type Department Care Team Description 11/12/2019 Results Only [facility] - Nitish Amador, Imaging [facility] Res[place] ts [address] [place] [phone] [facility] [address] [place] [address] (Wo rk) Social History Tobacco Use Types Packs/Day Years Used Date Former Smoker Cigarettes 10 Quit: 03/25/20 09 Smokeless Tobacco: Never Used Alcohol Use Standard Drinks/Week Comments No 0 (1 standard drink = 0.6 oz pure alcoho l) occ Sex Assigned at Date Recorded Male 03/11/2020 9:13 EDT documented as of this encounter Plan of Treatment Not on filedocumented as of this encounter Procedures Procedure Name Priority Date/Time Associated Diagnosis Comme nts MR HEAD W WO 11/12/2019 14:56 Results for this CONTRAST EST procedure are i n the results section. documented in this encounter Results MR HEAD W WO CONTRAST (11/12/2019 14:56 EST) Specimen Narrative [facility] - 11/12/2019 14:56 EST ? EXAM: MAGNETIC RESONANCE IMAGING/BRAIN W/ EX. D/ (1350) ? CLINICAL INFORMATION: ? dizziness and weakness, know ICA mass ? PROCEDURE INFORMATION: ? Exam: MR Head Without and With Co ntrast; Internal Auditory ? Canals ? Exam date and time: 11/12/2019 10:4 0 AM ? Age: 38 years old ? Clinical indication: Condition or disease; Other: Known iac ? mass. ; Additional info: Dizzines s and weakness, know ica mass ? TECHNIQUE: ? Imaging protocol: MR of the head without and with intravenous ? contrast. Exam focused on the int ernal auditory canals. ? 3D rendering: MIP and/or 3D recon structed images were created by ? the technologist. ? Contrast material: GADAVIST; Cont rast volume: 8 ml; Contrast ? route: I.V. ? COMPARISON: ? MR INTERNAL AUDITORY CANALS 2019 10:08 AM ? FINDINGS: ? Brain: The exam mildly degraded b y patient motion. ? Ventricles: Ventricles, sulci are unremarkable. No significant ? intra-axial abnormality is identi fied. There is no restricted ? diffusion to suggest recent, acut e or subacute ischemia or ? cytotoxic edema. There is no abno rmal susceptibility to suggest ? prior hemorrhage. No other abnorm al intracranial contrast ? enhancement is identified. ? Sinuses: There is no significant sinus opacification or fluid ? level ? Mastoid air cells: There is no si gnificant mastoid ? opacification. ? Internal auditory canals: There i s a mass noted in the left ? internal auditory canal, it exten ds to the porus acusticus and ? minimally bulges into the adjacen t CP angle cistern without mass ? effect or distortion of the adjac ent brainstem. The mass is ? heterogeneous/complex on T1, T2 w eighted images. There is some ? central nonenhancing T2 bright si gnal suggestive of central ? cystic change. The lesion measure s approximately 15 mm in its ? maximal transverse diameter, 5 mm in its maximum superior to ? inferior extent as measured on co genia postcontrast image 9, ? series 17. As measured on axial p ostcontrast image 8, series 16 ? its maximum AP diameter is approx imately 9 mm. There is no ? abnormality of the right internal auditory canal. ? Orbits: Orbits are unremarkable ? Other vasculature: Flow voids are unremarkable on the sequences ? obtained. ? Bones/joints: No new bony abnorma lity. ? IMPRESSION: ? Complex, enhancing predominately intra canalicular lesion left ? IAC. MR appearance is most sugges tive of the left vestibular ? schwannoma. Accounting for differ ences in slice selection ? between this in the patient's rudolph or exam, the size, appearance ? PAGE 1 ? Adriana d Report ? (CONTINUED) ? have not changed significantly in the interval. No new or acute ? findings are identified. ? REPORT SIGNED IN OTHER VENDOR SYSTEM 11/12/2019 ?Reported B y: Kirsty Delong MD ? CC: Syed Leong MD ? Transcribed Date/Time: 11/12/2019 (1456) ? Sucker Machine Operator: ? Printed Date/Time: 11/12/2019 (14 56) ? PAGE 2 ? Adriana d Report ? Procedure Note Kirsty Delong MD - 11/12/2019 EXAM: MAGNETIC RESONANCE IMAGING/BRAIN W/ EX. D/ (1350) CLINICAL INFORMATION: dizziness and weakness, know ICA mass PROCEDURE INFORMATION: Exam: MR Head Without and With Contrast ; Internal Auditory Canals Exam date and time: 11/12/2019 10:40 AM Age: 38 years old Clinical indication: Condition or disea se; Other: Known iac mass. ; Additional info: Dizziness and weakness, know ica mass TECHNIQUE: Imaging protocol: MR of the head withou t and with intravenous contrast. Exam focused on the internal auditory canals. 3D rendering: MIP and/or 3D reconstruct ed images were created by the technologist. Contrast material: GADAVIST; Contrast v olume: 8 ml; Contrast route: I.V. COMPARISON: MR INTERNAL AUDITORY CANALS 11/02/2019 1 0:08 AM FINDINGS: Brain: The exam mildly degraded by basim ent motion. Ventricles: Ventricles, sulci are unrem arkable. No significant intra-axial abnormality is identified. There is no restricted diffusion to suggest recent, acute or s ubacute ischemia or cytotoxic edema. There is no abnormal s usceptibility to suggest prior hemorrhage. No other abnormal int racranial contrast enhancement is identified. Sinuses: There is no significant sinus opacification or fluid level Mastoid air cells: There is no signific ant mastoid opacification. Internal auditory canals: There is a ma ss noted in the left internal auditory canal, it extends to the porus acusticus and minimally bulges into the adjacent CP a ngle cistern without mass effect or distortion of the adjacent br ainstem. The mass is heterogeneous/complex on T1, T2 weighte d images. There is some central nonenhancing T2 bright signal s uggestive of central cystic change. The lesion measures appr oximately 15 mm in its maximal transverse diameter, 5 mm in it s maximum superior to inferior extent as measured on coronal postcontrast image 9, series 17. As measured on axial postcon trast image 8, series 16 its maximum AP diameter is approximatel y 9 mm. There is no abnormality of the right internal audit ory canal. Orbits: Orbits are unremarkable Other vasculature: Flow voids are unrem arkable on the sequences obtained. Bones/joints: No new bony abnormality. IMPRESSION: Complex, enhancing predominately intra canalicular lesion left IAC. MR appearance is most suggestive o f the left vestibular schwannoma. Accounting for differences in slice selection between this in the patient's prior exa m, the size, appearance PAGE 1 Signed Report (CONTINUED) have not changed significantly in the i nterval. No new or acute findings are identified. REPORT SIGNED IN OTHER VENDOR SYSTEM 11/12/2019 Reported By: Kirsty Delong MD CC: Syed Leong MD Transcribed Date/Time: 11/12/2019 (9698 ) Sucker Machine Operator: Printed Date/Time: 11/12/2019 (5358) PAGE 2 Signed Report Performing Organization Address City/State/ZIP Code Phon e Number [facility] documented in this encounter Visit Diagnoses Not on filedocumented in this encounter Care Teams Abrasive Mixer Helper Relationship Specialty Start Date End Date Syed Leong MD PCP - General 04/08/09 0 Unknown, Provider, PCP - General 11/24/20 documented as of this encounter
--- OUTSIDE RECORDS SUMMARY | 2022-02-27 01:24 | XMS_ITS | Encounter Summary ---
:1980 Author Organization [facility] Address [address] [place] [address] Care Team Providers Name Role Phone Syed Leong MD Primary Care Provider Unavailable Unknown, Provider Primary Care Provider Encounter Details Date Type Department Care Team Description 12/06/2019 Results Only Imaging [facility] - Uvaldo Leong, [facility] [address] [place] [address] Social History Tobacco Use Types Packs/Day [...] documented as of this encounter Miscellaneous Notes Result QuickNote - Beverly Brothers APRN - 12/06/2019 1028 EDT Please call the patient and let him know that I am covering for Dr. Leong. His EKG was normal. documented in this encounter Plan of Treatment Not on filedocumented as of this encounter Procedures Procedure Name Priority Date/Time Associated Diagnosis Comme nts EKG 12-LEAD 12/06/2019 10:20 EDT Results for this procedure are i n the results section . documented in this encounter Results EKG 12-LEAD (12/06/2019 10:20 EDT) Specimen Narrative [facility] - 020 10:20 EDT ? [facility] ? Test Date: ?2019-12-06 10:20:22 Pat Name: ? FLAVIO ALMAZAN ?Department: ?Room: ? Gender: ? M ?Beveling Machine Operator: ?? MS : ?1980 ? Requested By: Order Number: ?Reading : ?? Jennifer Sanders MD ? Measurements Intervals ?Likely ? Rate: ? 67 ? P: ?66 NH: ? 154 ?QRS: ?47 QRSD: ? 88 ? T: ?32 QT: ? 388 ? QTc: ?409 ? Interpretive Statements Normal sinus rhythm Normal ECG No previous ECG available for comparison Electronically Signed On 12-06-2019 22:05 :34 EDT by Jennifer Sanders MD [email or web address] Procedure Note Jennifer Sanders MD - 12/06/2019 [facility] Test Date: 2019-12-06 10:20:22 Pat Name: FLAVIO ALMAZAN Department: Room: Gender: M Beveling Machine Operator: : 1980 Requested By: Order Number: Reading MD: Jennifer simmons MD Measurements Intervals Likely Rate: 67 P: 66 NH: 154 QRS: 47 QRSD: 88 T: 32 QT: 388 QTc: 409 Interpretive Statements Normal sinus rhythm Normal ECG No previous ECG available for comparison Electronically Signed On 12-06-2019 22:05 :34 EDT by Jennifer Sanders MD [email or web address] Performing Organization Address City/State/ZIP Code Phon e Number [facility] [address] [facility] documented in this encounter Visit Diagnoses Not on filedocumented in this encounter Care Teams Physician Internist Relationship Specialty Start Date End Date Syed Leong MD PCP - General 04/08/09 0 Unknown, Provider, PCP - General 11/24/20 documented as of this encounter
--- OUTSIDE RECORDS SUMMARY | 2022-02-27 01:24 | XMS_ITS | Encounter Summary ---
:1980 Author Organization [facility] Address [address] [place] [address] Care Team Providers Name Role Phone Syed Leong MD Primary Care Provider Unavailable Encounter Details Date Type Department Care Team Description 03/22/2020 Travel Social History Tobacco Use Types Packs/Day [...] on filedocumented in this encounter Care Teams Egyptologist Relationship Specialty Start Date End Date Syed Leong MD PCP - General 04/08/09 0 documented as of this encounter
--- OUTSIDE RECORDS SUMMARY | 2022-02-27 01:24 | XMS_ITS | Encounter Summary ---
:1980 Author Organization [facility] Address [address] [place] [address] Care Team Providers Name Role Phone Syed Leong MD Primary Care Provider Unavailable Reason for Visit Reason Onset Date Comments Appointment Related 01/16/2020 Encounter Details Date Type Department Care Team Description 01/16/2020 Telephone [facility] Family Syed Leong, Appointment Related Medicine - Ye MORROW [address] [place] [address] [address] Social History Tobacco Use Types Packs/Day Years [...] this encounter Miscellaneous Notes Telephone Encounter - Lenny Son - 01/16/2020 1441 EDT Appointment scheduled for tomorrow 01/17/20 @9:15 with [place], I will leave this open until the fax for the progress notes are faxed to Sheri. elephone Encounter - Syed Leong MD - 01/16/2020 1434 EDT It could be with an ED that or Wednesday. I am hoping to network strategist Telephone Encounter - Lenny Son - 01/16/2020 1359 EDT Pts is calling in stating that the pt is scheduled to have [place] of [place] [facility] @ 7:50[place]. The office is stating that the pt needs to have a physical in the past 30 days or they will need to reschedule the appointment. Stated I would need to see if we can get him in for an appointment before then. Will call her back. Spoke to Sheri/[facility] [phone], she confirmed this is correct. If we can, please fax#[phone] the latest would be the night before. Please advise if the pt can come in the office 01/18/20 @ 3:30. documented in this encounter Plan of Treatment Not on filedocumented as of this encounter Visit Diagnoses Not on filedocumented in this encounter Care Teams Heavy Coil Winder Relationship Specialty Start Date End Date Syed Leong MD PCP - General 04/08/09 0 documented as of this encounter
--- OUTSIDE RECORDS SUMMARY | 2022-02-27 01:24 | XMS_ITS | Encounter Summary ---
:1980 Author Organization [facility] Address [address] [place] [address] Care Team Providers Name Role Phone Syed Leong MD Primary Care Provider Unavailable Reason for Referral Consult (Routine) - Authorization Not Required Specialty Diagnoses / Procedures Referred By Contact Refer red To Contact Diagnoses Other complicated headache syndrome Vertigo Syed Leong MD [address] [place] [address] [address] Referral ID Status Reason Start Expiration Visits Visits Date Date Requested Authorized [id number] Authorization Not 12/05/2019 1 1 Required Question Answer Reason for Request: headaches, vertigo, nausea, fatigue. atypical for migraine, trigeminal neuralgia Comments See office note of 11/30/19 ardiology (3 - 10 Business Days) - Closed Specialty Diagnoses / Procedures Referred By Contact Refer red To Contact Diagnoses Heart palpitations Syed Leong MD Procedures EKG 12-LEAD [address] [place] [address] [address] Referral ID Status Reason Start Date Expiration Date Visits Requ ested Visits Authorized [id number] Closed 12/05/2019 1 1 Reason for Visit Reason Onset Date Comments Results 12/05/2019 xrays, labs Encounter Details Date Type Department Care Team Description 12/05/2019 Telephone [facility] Syed Leong, Resu lts (xrays, labs) Family Medicine - Be latasha MORROW [address] [facility] [address] [place] [address] Social History Tobacco Use Types Packs/Day Years [...] Telephone Encounter - Syed Leong MD - 12/05/2019 1826 EDT Called patient to inform him of all the normal blood tests and spine x-rays. Next steps: ECG (then possibly echo) to look for cause of fatigue (does have palpitations) Neuro consult for the SINCLAIR's, vertigo, etc Not sure if all of the sx's can be put into one dx or if more than one thing going on. documented in this encounter Plan of Treatment Scheduled Orders Name Type Priority Associated Diagnoses Order S chedule EKG 12-LEAD ECG Routine Heart palpitations Ordered: 12/05/2019 Scheduled Referrals Name Type Priority Associated Diagnoses Order S chedule AMB CONS/FOLLOW UP Outpatient Referral Routine Other complicat ed Ordered: NEUROLOGY headache syndrom e 12/05/2019 Vertigo documented as of this encounter Visit Diagnoses Diagnosis Heart palpitations - Primary Palpitations Other complicated headache syndrome Vertigo Dizziness and giddiness documented in this encounter Care Teams Energy And Sustainability Manager Relationship Specialty Start Date End Date Syed Leong MD PCP - General 04/08/09 0 documented as of this encounter
--- OUTSIDE RECORDS SUMMARY | 2022-02-27 01:24 | XMS_ITS | Encounter Summary ---
:1980 Author Organization [facility] Address [address] [place] [address] Care Team Providers Name Role Phone Unknown, Provider Primary Care Provider Encounter Details Date Type Department Care Team Description 11/24/2020 Travel Social History Tobacco Use Types Packs/Day [...] on filedocumented in this encounter Care Teams Special Effects Technician Relationship Specialty Start Date End Date Unknown, Provider, PCP - General 11/24/20 documented as of this encounter
--- OUTSIDE RECORDS SUMMARY | 2022-02-27 01:24 | XMS_ITS | Encounter Summary ---
:1980 Author Organization [facility] Address [address] [place] [address] Care Team Providers Name Role Phone Syed Leong MD Primary Care Provider Unavailable Reason for Referral Consult (3 - 10 Business Days) - Specialty Report Received Specialty Diagnoses / Procedures Referred By Contact Refer red To Contact Diagnoses Acute pain of right shoulder Nitish Lopez, AEROSPACE ASSEMBLER [address] [address] Referral ID Status Reason Start Expiration Visits Visits Date Date Requested Authorized [id number] Specialty Specialty 02/22/2020 1 1 Report Services Received Required Question Answer Reason for Request: right sided shoulder pain. p ositive hawkin's test and painful arc past 90 degrees. worried abo ut rotator cuff. has upcoming surgery for acoustic neuroma . if ne eds surgery is hoping to have this done aroud the same time as this surgery. Reason for Visit Reason Comments Shoulder Injury onset 3 weeks ago. patient h eard it pop. Immunizations td pending Encounter Details Date Type Department Care Team Description 02/22/2020 Office Visit [facility] Nitish Lopez, Acute pain of right shoulder (Primary Dx); Family Medicine - AEROSPACE ASSEMBLER Need for Td vaccine [place] [address] [facility] [address] [facility] [address] [phone] Social History Tobacco Use Types Packs/Day [...] Sign Reading Time Taken Comments Blood Pressure 108/68 02/22/2020 1314 EDT Pulse 80 02/22/2020 1314 EDT Temperature - - Respiratory Rate 10 02/22/2020 1314 EDT Oxygen Saturation 98% 02/22/2020 1314 EDT Inhaled Oxygen Concentration - - Weight 80.4 kg (177 lb 3.2 oz) 02/22/2020 1314 EDT Height - - Body Mass Index 25.98 01/17/2020 0849 EDT documented in this encounter [...] as of this encounter Patient Instructions Patient InstructionsNitish Lopez APRN - 02/22/2020 13:15 EDT Orthopedic number: [phone] documented in this encounter Progress Notes Nitish Lopez APRN - 02/22/2020 1315 EDT Subjective: Patient ID: Flavio Hamm is an 39 y.o. male. Chief Complaint Patient presents with ??? Shoulder Injury onset 3 weeks ago. patient heard it pop. ??? Immunizations td pending HPI 39-year-old male patient in the office today for right-sided shoulder pain ongoing for about 3 weeks. Pain started after he was bench pressing some weights and he heard a popping sound. Since that he has had pain in the right lateral shoulder radiating into the right bicep. 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 He denies any numbness or tingling or weakness. 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 Patient Active Problem List Diagnosis ??? Left-sided tinnitus ??? Hearing loss in left ear ??? Gastroesophageal reflux disease ??? Low back pain without sciatica ??? Non-recurrent unilateral inguinal hernia without obstruction or gangrene ??? Left acoustic neuroma (HCC-CMS) ??? Chronic intractable headache ??? Chronic fatigue ??? Dizziness ??? 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 Drug use: No ROS - See HPI Objective: BP 108/68 Pulse 80 Resp 10 Wt 80.4 kg (177 lb 3.2 oz) SpO2 98% BMI 25.98 kg/m?? Physical Exam Constitutional: He appears well-developed and well-nourished. No distress. Musculoskeletal: Right shoulder: pain with palpation of lateral aspect of AC joint. Positive joseph test, pain during painful arc after 90 degrees. Psychiatric: He has a normal mood and affect. His behavior is normal. Thought content normal. Nursing note and vitals reviewed. Assessment/Plan: 39-year-old male patient in the office today for right-sided shoulder pain ongoing for about 3 weekswhich started after bench pressing some weights and hearing a popping sound. He had a positive Joseph test as well as some pain with palpation of the lateral aspect of the shoulder. I suspect this could be a biceps tendinitis as well as a possible rotator cuff issue. Patient would like to avoid PT atthis point if possible. For now we will do an x-ray and refer him to orthopedics. As stated above ifhe needs surgery he would like to have it done around the same time that he has his acoustic neuromasurgery done. If the patient does need an MRI in the future he would like us know that he would need to be fully sedated. Patient is also due for Td vaccine today. He agrees to have this done and that was given by nursing staff. Flavio was seen today for shoulder injury and immunizations. Diagnoses and all orders for this visit: Acute pain of right shoulder - XR SHOULDER RIGHT 2 OR MORE VIEWS - AMB CONS/FOLLOW UP ORTHOPEDICS Need for Td vaccine - TD (ADULT) 2 LF VACCINE =>[address] Leong was the attending physician available in the clinic today if needed. A consultation wasnot required. Nitish Lopez APRN 02/22/2020 13:41 documented in this encounter Plan of Treatment Scheduled Referrals Name Type Priority Associated Order Schedule Diagnoses AMB CONS/FOLLOW UP Outpatient Referral Routine Acute pain of r ight Ordered: ORTHOPEDICS shoulder 02/22/2020 documented as of this encounter Visit Diagnoses Diagnosis Acute pain of right shoulder - Primary Need for Td vaccine Need for prophylactic vaccination with t etanus-diphtheria (Td) documented in this encounter Orders Immunization/Injection Count Last Ordered Date First O rdered Date TD (ADULT) 2 LF VACCINE =>7YO IM 1 02/22/2020 documented in this encounter Care Teams Factory Worker Relationship Specialty Start Date End Date Syed Leong MD PCP - General 04/08/09 0 documented as of this encounter
--- OUTSIDE RECORDS SUMMARY | 2022-02-27 01:24 | XMS_ITS | Encounter Summary ---
:[address] [facility] Address [address] [place] [address] Care Team Providers Name Role Phone Syed Leong MD Primary Care Provider Unavailable Reason for Visit Reason Comments Pre-op Exam Pre op appointment for vesti bular schwannoma at [facility] with [facility]. Welsh on April 11. Encounter Details Date Type Department Care Team Description 03/22/2020 Office Visit [facility] Jennifer Petty Pre- op examination (Primary Dx); Family Medicine - J, STERILE PROCESSING TECH Left acoustic neuroma (HCC-CMS); [place] [address] Sensorineural hearing loss (SNHL) of lef t ear, unspecified hearing status on contralateral side [address] [facility] [address] [place] [address] [phone] Social History Tobacco Use Types Packs/Day Years [...] Sign Reading Time Taken Comments Blood Pressure 116/74 03/22/2020 1357 EDT Pulse 88 03/22/2020 1357 EDT Temperature 36.7 ??C (98 ??F) 03/22/2020 135 EDT Respiratory Rate - - Oxygen Saturation 97% 03/22/2020 135 EDT Inhaled Oxygen Concentration - - Weight 80.3 kg (177 lb) 03/22/2020 135 EDT Height 175.3 cm (5' 9) 03/22/2020 135 EDT Body Mass Index 26.14 03/22/2020 135 EDT documented in this encounter Functional Status [...] as of this encounter Patient Instructions Patient InstructionsAlJennifer lo, SOM - 03/22/2020 13:45 EDT Images from the original note were not included. [facility] Patient Instructions Learning About How to Prepare for Surgery How can you prepare before surgery? You can do some things that will help you safely prepare for surgery. ?? Understand exactly what surgery is planned. You should know the risks, benefits, and other options. ?? Tell your doctors ALL the medicines, vitamins, supplements, and herbal remedies you take. Some of these can increase the risk of bleeding. Or they may interact with anesthesia. ?? Follow your doctor's instructions about which medicines to take or stop before your surgery. ? You may need to stop taking some medicines a week or more before surgery. ? If you take aspirin or some other blood thinner, be sure to talk to your doctor. ?? Follow any other instructions your doctor gave you. ?? If you have an advance directive, let your doctor know, and bring a copy to the hospital. It may include a living will and a durable power of banking attorney for health care. It lets your doctor and loved ones know your health care wishes. If you don't have one, you may want to prepare one. How can you prepare on the day of surgery? Here are some tips about what to do at home before you leave for your surgery. ?? If your doctor told you to take your medicines on the day of surgery, take them with only a sip of water. ?? Follow the instructions about when to stop eating and drinking. If you don't, your surgery may be canceled. ?? Follow your doctor's instructions about when to bathe or shower before your surgery. ?? Do not shave the surgical site yourself. ?? Take off all jewelry and piercings. ?? Take out contact lenses, if you wear them. ?? Have a picture ID ready to take with you. Your ID will be checked before your surgery. ?? Know when to call your doctor. Call your doctor if you: ? Become ill before surgery. ? Need to reschedule. ? Have changed your mind about having the surgery. What happens before surgery? Here are some things you can expect to happen before your surgery. ?? Your picture ID will be checked. ?? The area of your body that needs surgery is often marked to make sure there are no errors. ?? You will be kept comfortable and safe by your anesthesia provider. The anesthesia may make you sleep. Or it may just numb the area being worked on. What happens when you are ready to go home? Be sure you have someone drive you home. Anesthesia and pain medicine make it unsafe for you to drive. You will get instructions about recovering from your surgery. This is called a discharge plan. It will cover things like diet, wound care, follow-up care, driving, and getting back to your normal routine. Follow-up care is a akbar part of your treatment and safety. Be sure to make and go to all appointments, and call your doctor if you are having problems. It's also a good idea to know your test results and keep a list of the medicines you take. Where can you learn more? Go to [email or web address]/[email or web address] or log into your [employer] account at [email or web address] Enter Q270 in the search box to learn more about Learning About How to Prepare for Surgery. Current as of: May 03, 2019Content Version: 12.4 ?? [facility]. Care instructions adapted under license by [facility]. If you have questions about a medical condition or this instruction, always ask your healthcare professional. [facility] disclaims any warranty or liability for your use of this information. documented in this encounter Progress Notes Jennifer Petty, FACILITY MAINTENANCE TECHNICIAN - 03/22/2020 4035 EDT Preoperative H&P Patient ID: Flavio Hamm is an 39 y.o. male. :1980 Date of Service: 03/22/2020 Chief Complaint: Chief Complaint Patient presents with ??? Pre-op Exam Pre op appointment for vestibular schwannoma at [facility] with [place]. Welsh on April 11. Planned Procedure: Removal of vestibular schwannoma (Crani??? infratemporal approach to middle fossa), MRI Surgeon: Dr. Jacobs of neurosurgery/Dr. Shelby of ENT Planned Procedure Date: 04/11/20 surgery, 03/28/20 MRI head Problem List Available or Initiated: yes Subjective: HISTORY OF PRESENT ILLNESS: 39-year-old male seen today for a preop examination to get an MRI done under anesthesia 03/29/2020 prior to removal of vestibular schwannoma at [facility] with Dr. Jacobs of neurosurgery/Dr. Shelby of ENT 04/11/2020. He Has been seen by ENT, neurology, neurosurgery at [facility]. He does experience regular tinnitus, headaches, fatigue and hearing difficulty. ?? Patient had an MRI done under anesthesia previously. Last two MRIs he received 3 doses of Versed andsuccessfully got the testing done. He does report a reaction to diazepam causing agitation. ?? Patient reports that he is feeling well overall, no recent illnesses. Denies fever, cough, shortnessof breath, chest pain. No cardiac history, no cardiac symptoms currently. Patient has been exercising eating healthy in anticipation of his surgery. He also reports taking COVID-19 and quarantine very seriously. Cardiovascular or pulmonary risk factors: none Prior h/o of anesthetic complications: no Prior h/o bleeding problems: no Prior h/o DVT/PE: no Prior h/o infections (VRE, MRSA): no Reaction to tape or latex: no Family history of anesthetic complications, bleeding problems or DVT/PE: no. ?? Patient Active Problem List Diagnosis ??? Left-sided tinnitus ??? Hearing loss in left ear ??? Gastroesophageal reflux disease ??? Low back pain without sciatica ??? Non-recurrent unilateral inguinal hernia without obstruction or gangrene ??? Left acoustic neuroma (HCC-CMS) ??? Chronic intractable headache ??? Chronic fatigue ??? Dizziness ??? FINANCIAL COUNSELOR (central serous retinopathy), left Past Medical History: Diagnosis Date ??? Hearing loss Left high frequency with assoc. Tinnitus Past Surgical History: Procedure Laterality Date ??? APPENDECTOMY ??? HERNIA REPAIR 1985 and 2018 Bilateral inguinal ??? LAPAROSCOPIC APPENDECTOMY 05/27/14 Social History Tobacco Use ??? Smoking status: Former Smoker Years: 10.00 Types: Cigarettes Last attempt to quit: 03/25/2009 Years since quittin.0 ??? Smokeless tobacco: Never Used Substance Use [...] for this visit. Review of Systems Constitutional: Positive for malaise/fatigue. Negative for chills and fever. HENT: Positive for tinnitus. Respiratory: Negative for shortness of breath. Cardiovascular: Negative for chest pain, palpitations and leg swelling. Gastrointestinal: Negative for abdominal pain. Genitourinary: Negative for dysuria and hematuria. Musculoskeletal: Negative for back pain and joint pain. Skin: Negative for rash. Neurological: Positive for headaches. Negative for dizziness. Objective: BP 116/74 (BP Cuff Location: Right arm, BP Patient Position: Sitting, BP Cuff Sizes: Adult, regular) Pulse 88 Temp 36.7 ??C (98 ??F) (Oral) Ht 175.3 cm (69) Wt 80.3 kg (177 lb) SpO2 97% BMI 26.14 kg/m?? Body mass index is 26.14 kg/m??. Physical Exam Constitutional: He is oriented to person, place, and time. He appears well- developed and well-nourished. HENT: Head: Normocephalic and atraumatic. Right Ear: External ear normal. Left Ear: External ear normal. Mouth/Throat: Oropharynx is clear and moist. Mucous membranes are moist. No oropharyngeal exudate. Eyes: Pupils are equal, round, and reactive to light. Conjunctivae and EOM are normal. Neck: Normal range of motion. Neck supple. No thyromegaly present. Cardiovascular: Normal rate, regular rhythm, normal heart sounds and intact distal pulses. Pulmonary/Chest: Effort normal and breath sounds normal. Abdominal: Soft. Bowel sounds are normal. There is no tenderness. Musculoskeletal: Normal range of motion. Lymphadenopathy: He has no cervical adenopathy. Neurological: He is alert and oriented to person, place, and time. Skin: Skin is warm and dry. Psychiatric: He has a normal mood and affect. His behavior is normal. Judgment and thought content normal. Vitals reviewed. Assessment: 1. Pre-op examination 2. Left acoustic neuroma (HCC-CMS) 3. Sensorineural hearing loss (SNHL) of left ear, unspecified hearing status on contralateral side No contraindications to planned surgery Plan: Proceed with surgery as planned. No food or liquids the morning of surgery. Call surgeon if develops respiratory illness, fever, or other illness. Jennifer Petty APRN 03/22/2020 14:34 If MD is billing provider, the STERILE PROCESSING TECH or PA must attest: was the attending physician available in the clinic today if needed. A consultation was not required. documented in this encounter Plan of Treatment Not on filedocumented as of this encounter Visit Diagnoses Diagnosis Pre-op examination - Primary Preoperative examination, unspecified Left acoustic neuroma (HCC-CMS) (HCC) Benign neoplasm of cranial nerves Sensorineural hearing loss (SNHL) of lef t ear, unspecified hearing status on contralateral side documented in this encounter Care Teams Tank Farm Attendant Relationship Specialty Start Date End Date Syed Leong MD PCP - General 04/08/09 0 documented as of this encounter
--- OUTSIDE RECORDS SUMMARY | 2022-02-27 01:24 | XMS_ITS | Encounter Summary ---
:1980 Author Organization [facility] Address [address] [place] [address] Care Team Providers Name Role Phone Unknown, Provider Primary Care Provider Reason for Visit Reason Onset Date Comments Wound Infection 11/24/2020 Encounter Details Date Type Department Care Team Description 11/24/2020 Telephone [facility] Shannan Santo RN Wound Infection [address] [place] [address] Social History Tobacco Use Types Packs/Day Years [...] this encounter Miscellaneous Notes Telephone Encounter - Shannan Santo RN - 11/24/2020 1646 EDT Pt seen today at for a burn on RUE; pt left EC wi/wound care instructions and is now calling to report that when he was here there was no s/sx of infection, however he noticed when he got home that he has a red line now running from his wrist to his R A/C. Pt denies increased pain,drianage, or fever. Advised pt msg will be sent to provider for further advice. SHANNAN SANTO RN 11/24/20 16:50 documented in this encounter Plan of Treatment Not on filedocumented as of this encounter Visit Diagnoses Not on filedocumented in this encounter Care Teams Director Trading Relationship Specialty Start Date End Date Unknown, Provider, PCP - General 11/24/20 documented as of this encounter
--- OUTSIDE RECORDS SUMMARY | 2022-02-27 01:24 | XMS_ITS | Encounter Summary ---
:1980 Author Organization [facility] Address [address] [place] [address] Care Team Providers Name Role Phone Syed Leong MD Primary Care Provider Unavailable Reason for Visit Reason Onset Date Comments Medication Problem 01/15/2020 Encounter Details Date Type Department Care Team Description 01/15/2020 Telephone [facility] Family Syed Leong, Medication Problem Medicine - Ye MORROW [address] [place] [address] [address] Social History Tobacco Use Types Packs/Day Years [...] Telephone Encounter - Iesha Borden RN - 01/15/2020 1406 EDT Pt notified that for previous MRI he was given Versed IV and that they had to give 2 additional doses because he was so restless. elephone Encounter - Syed Leong MD - 01/15/2020 1139 EDT Yes they had to give him 3 doses of Versed (midazolam) and it worked for him to get the MRI done. I don't see that they gave him diazepam. Whether [facility] anesth will want to avoid it based on how says itmade him feel (confusion, disorientation) or not, will be up to them. Ativan will be a much milder se dation, likely not cause the side effects, but unsure whether it will be strong enough depending on how claustrophobic he is. Please call patient. elephone Encounter - Iesha Borden, RN - 01/15/2020 1122 EDT states he had good results with medication he rec'd for MRI on 11/12/19. Looking at the note in scanned docs it says he was given 2.5 mg Midazolam IV but it also says in Doctors Notes that he received Diazepam with good results. states that they are planning to give him po Ativan at [facility] elephone Encounter - Anderson Person - 01/15/2020 1036 EDT Pt's calling because pt has an MRI scheduled @ [facility] on Wednesday and wants to discuss any medications and reactions/allergies pt has documented in this encounter Plan of Treatment Not on filedocumented as of this encounter Visit Diagnoses Not on filedocumented in this encounter Care Teams Test Pilot Relationship Specialty Start Date End Date Syed Leong MD PCP - General 04/08/09 0 documented as of this encounter
--- OUTSIDE RECORDS SUMMARY | 2022-02-27 01:24 | XMS_ITS | Encounter Summary ---
:1980 Author Organization [facility] Address [address] [place] [address] Care Team Providers Name Role Phone Syed Leong MD Primary Care Provider Unavailable Reason for Visit Reason Onset Date Comments Coordination Of Care 12/16/2019 Encounter Details Date Type Department Care Team Description 12/16/2019 Telephone [facility] Family Syed Leong, Coordination Of Care Medicine - Ye MORROW [address] [place] [address] [address] Social History Tobacco Use Types Packs/Day Years [...] Notes Telephone Encounter - Bear Willingham - 12/18/2019 0908 [address]T [address] Welsh at [facility]. Bear Willingham elephone Encounter - Syed Leong MD - 12/16/2019 0936 EDT Please send copies of the two visits at [facility] to Dr Christopher Welsh, [facility] Otolaryngology. I have book marked the scanned materials for easy finding. documented in this encounter Plan of Treatment Not on filedocumented as of this encounter Visit Diagnoses Not on filedocumented in this encounter Care Teams Assembler Mechanical Ordnance Relationship Specialty Start Date End Date Syed Leong MD PCP - General 04/08/09 0 documented as of this encounter
--- OUTSIDE RECORDS SUMMARY | 2022-02-27 01:24 | XMS_ITS | Encounter Summary ---
:1980 Author Organization [facility] Address [address] [place] [address] Care Team Providers Name Role Phone Unknown, Provider Primary Care Provider Reason for Visit Reason Comments Other Encounter Details Date Type Department Care Team Description 04/28/2021 Refill [facility] Family Medicine Staffo mendoza, Syed Hassan MD [facility] - [address] [address] Social History Tobacco Use Types Packs/Day Years [...] on filedocumented in this encounter Care Teams Link Knitting Machine Operator Relationship Specialty Start Date End Date Unknown, Provider, PCP - General 11/24/20 documented as of this encounter
--- OUTSIDE RECORDS SUMMARY | 2022-02-27 01:24 | XMS_ITS | Encounter Summary ---
:1980 Author Organization [facility] Address [address] [place] [address] Care Team Providers Name Role Phone Syed Leong MD Primary Care Provider Unavailable Reason for Visit Reason Onset Date Comments Results 12/07/2019 Encounter Details Date Type Department Care Team Description 12/07/2019 Telephone [facility] Family Kirsty Montoya RN [facility] Medicine - [address] [address] Social History Tobacco Use Types Packs/Day Years [...] this encounter Miscellaneous Notes Telephone Encounter - Kirsty Montoya RN - 12/07/2019 0927 EDT Patient notified and verbalized understanding elephone Encounter - Kirsty Montoya RN - 12/07/2019926 EDT ----- Message from Beverly Brothers APRN sent at 12/06/2019 17:02 EDT ----- Please call the patient and let him know that I am covering for Dr. Leong. His EKG was normal. documented in this encounter Plan of Treatment Not on filedocumented as of this encounter Visit Diagnoses Not on filedocumented in this encounter Care Teams Profile Grinder Relationship Specialty Start Date End Date Syed Leong MD PCP - General 04/08/09 0 documented as of this encounter
--- OUTSIDE RECORDS SUMMARY | 2022-02-27 01:24 | XMS_ITS | Encounter Summary ---
:1980 Author Organization [facility] Address [address] [place] [address] Care Team Providers Name Role Phone Syed Leong MD Primary Care Provider Unavailable Encounter Details Date Type Department Care Team Description 11/29/2019 Travel Social History Tobacco Use Types Packs/Day [...] on filedocumented in this encounter Care Teams Sewing Machine Adjuster Relationship Specialty Start Date End Date Syed Leong MD PCP - General 04/08/09 0 documented as of this encounter
--- OUTSIDE RECORDS SUMMARY | 2022-02-27 01:24 | XMS_ITS | Encounter Summary ---
:1980 Author Organization [facility] Address [address] [place] [address] Care Team Providers Name Role Phone Syed Leong MD Primary Care Provider Unavailable Encounter Details Date Type Department Care Team Description 04/06/2020 Orders Only [facility] Family Syed Leong MD [address] [address] Social History Tobacco Use Types [...] Diagnoses Not on filedocumented in this encounter Historical Medications This list may reflect changes made after this encounter. Medication Sig Dispensed Refills Start Date End Date eplerenone (INSPRA) 25 mg Take 25 mg by mouth 0 0 02/23/2020 tablet 2 times daily. amitriptyline (ELAVIL) 25 mg Take 75 mg by mouth 0 02/15/2020 tablet at bedtime. added in this encounter Care Teams Account Executive Healthcare Relationship Specialty Start Date End Date Syed Leong MD PCP - General 04/08/09 0 documented as of this encounter
--- OUTSIDE RECORDS SUMMARY | 2022-02-27 01:24 | XMS_ITS | Encounter Summary ---
:1980 Author Organization [facility] Address [address] [place] [address] Care Team Providers Name Role Phone Syed Leong MD Primary Care Provider Unavailable Unknown, Provider Primary Care Provider Encounter Details Date Type Department Care Team Description 12/04/2019 Results Only Imaging [facility] - Uvaldo Leong, [facility] Radiology Resul ts [address] [place] [address] Social History Tobacco Use Types [...] Priority Date/Time Associated Diagnosis Comme nts XR CERVICAL SPINE 12/04/2019 8:22 EDT Res ults for this 4-5 VIEWS procedure are i n the results section. documented in this encounter Results XR CERVICAL SPINE 4-5 VIEWS (12/04/2019 8:22 EDT) Specimen Narrative [facility] - 12/04/2019 8:22 EDT ? EXAM: RADIOLOGY/CERVICAL SPINE 4 OR 5 VIE EX. D/ (0743) ? CLINICAL INFORMATION: ? M54.2 NECK PAIN ? (L) NECK PAIN FOLLOWING FALL FROM ROOF ? INDICATION: M54.2 NECK PAIN , (L) NECK PAIN FOLLOWING FALL FROM ROOF ? . ? COMPARISON: None. ? TECHNIQUE: Odontoid, AP, lateral and bilateral oblique views of the ? cervical spine were obtained. ? FINDINGS: ? Mild degenerative changes through out the cervical spine with neural ? foraminal bony narrowing on the r ight at the 3-C4. Minimal scoliosis ? of the cervicothoracic spine. The retropharyngeal soft tissues are ? unremarkable. No fracture or subl uxation is identified. ? IMPRESSION: No fracture. ? REPORT SIGNED IN OTHER VENDOR SYSTEM 12/04/2019 ?Reported B y: Sina Mansfield MD ? CC: Syed Leong MD ? Transcribed Date/Time: 12/04/2019 (821) ? Traffic I Manager: ? Printed Date/Time: 12/04/2019 (05 04) ? PAGE 1 ? Adriana d Report ? Procedure Note Sina Mansfield MD - 0 EXAM: RADIOLOGY/CERVICAL SPINE 4 OR 5 V IE EX. D/ (0743) CLINICAL INFORMATION: M54.2 NECK PAIN (L) NECK PAIN FOLLOWING FALL FROM ROOF INDICATION: M54.2 NECK PAIN , (L) NECK PAIN FOLLOWING FALL FROM ROOF . COMPARISON: None. TECHNIQUE: Odontoid, AP, lateral and bi lateral oblique views of the cervical spine were obtained. FINDINGS: Mild degenerative changes throughout th e cervical spine with neural foraminal bony narrowing on the right a t the 3-C4. Minimal scoliosis of the cervicothoracic spine. The retro pharyngeal soft tissues are unremarkable. No fracture or subluxatio n is identified. IMPRESSION: No fracture. REPORT SIGNED IN OTHER VENDOR SYSTEM 12/04/2019 Reported By: Sina Mansfield MD CC: Syed Leong MD Transcribed Date/Time: 12/04/2019 (08 ) Traffic I Manager: Printed Date/Time: 12/04/2019 (08) PAGE 1 Signed Report Performing Organization Address City/State/ZIP Code Phon e Number [facility] documented in this encounter Visit Diagnoses Not on filedocumented in this encounter Care Teams Disintegrator Feeder Relationship Specialty Start Date End Date Syed Leong MD PCP - General 04/08/09 0 Unknown, Provider, PCP - General 11/24/20 documented as of this encounter
--- OUTSIDE RECORDS SUMMARY | 2022-02-27 01:25 | XMS_ITS | Encounter Summary ---
:1980 Author Organization [facility] Address [address] [place] [address] Care Team Providers Name Role Phone Syed Leong MD Primary Care Provider Unavailable Unknown, Provider Primary Care Provider Encounter Details Date Type Department Care Team Description 11/02/2019 Results Only Imaging [facility] - Uvaldo Leong, [facility] Radiology Resul ts [address] [place] [address] Social History Tobacco Use Types [...] Date/Time Associated Diagnosis Comme nts MR HEAD WO CONTRAST 11/02/2019 12:02 Resu lts for this EST procedure are i n the results section. documented in this encounter Results MR HEAD WO CONTRAST (11/02/2019 12:02 EST) Specimen Narrative [facility] - 11/02/2019 12:02 EST ? EXAM: MAGNETIC RESONANCE IMAGING/INTERNAL EX. D/ (1124) ? CLINICAL INFORMATION: ? H91.8X2 ASYMMETRICAL HEARING LOSS LEFT EAR ? H93.12 LEFT TINNITUS, R42 DIZZINE SS ? INTERNAL AUDITORY CANALS ? Signs and Symptoms/Comments: ??H9 1.8X2 ASYMMETRICAL HEARING LOSS LEFT ? EAR, H93.12 LEFT TINNITUS, R42 DI ZZINESS ? Comparisons: None. ? Technique: Contrast-enhanced MR b rain was performed with the ? following sequences: Sagittal T1, axial T2, axial T2 FLAIR, axial ? DWI, axial T1, axial FIESTA, axia l susceptibility, coronal T1, and ? post gadolinium axial and coronal T1 fat-sat. High-resolution images ? were performed through the level of the internal auditory canals. 7.5 ? cc Gadavist intravenous contrast was administered. ? FINDINGS: ? Brain: There is an avidly enhanci ng LEFT internal auditory canal mass ? measuring 17 x 7 x 6 mm (postcont rast axial series 15 image 8; ? coronal series 16 image 8). The m ass has a smooth contour and a ? cone-like morphology, highly susp icious for a vestibular schwannoma. ? Small internal cystic components are visible, also suggestive of a ? schwannoma (axial fiesta series 1 0 image 47). Tiny internal foci of ? susceptibility cannot be excluded , suspicious for either ? microcalcifications or microhemor rhage. The mass occupies the ? entirety of the left IAC, bulging slightly into the left ? cerebellopontine angle. There is no associated mass effect on the ? adjacent left middle cerebellar p eduncle at this time. Neurosurgical ? consultation is recommended. ? No contralateral right IAC or cer ebellopontine angle mass is ? identified. The right 7th and 8th cranial nerves are normal in signal ? and morphology. The cochlea and s emicircular canals appear ? unremarkable bilaterally. No mast oid or middle ear effusion is ? visible. ? Save for the aforementioned left IAC mass, no additional intracranial ? masses are identified. After allo wing for mild motion artifact, no ? significant T2 FLAIR signal abnor mality is visible within the brain ? parenchyma. No midline shift is p resent. The basal cisterns are ? patent. The ventricles are unrema rkable. Suarez-white differentiation ? is preserved. No restricted diffu jack is identified to suggest acute ? ischemia. The major flow voids ar e preserved. ? Orbits: The globes and orbits are normal. ? Paranasal sinuses: Mild scattered paranasal sinus mucosal thickening ? is present. No layering fluid is visible. ? Middle ear cavities ?? Mastoid ai r cells: The mastoid air cells and ? middle ear cavities are clear. ? PAGE 1 ? Adriana d Report ? (CONTINUED) ? Bones: The osseous structures are unremarkable. ? Extracranial soft tissues: The ex tracranial soft tissues are ? unremarkable. ? IMPRESSION: ? 1. ??Avidly enhancing 17 mm LEFT IAC mass, highly suspicious for a ? vestibular schwannoma. Neurosurgi bob consultation recommended. ? 2. ??Otherwise unremarkable contr ast-enhanced MR brain for age. ? Dr. Zane Hodgson discussed thes e findings with Iesha Huynh RN (for ? Dr. Leong) on 11/02/2019 11:49 AM. ? REPORT SIGNED IN OTHER VENDOR SYSTEM 11/02/2019 ?Reported B y: Zane Hodgson MD ? CC: Syed Leong MD ? Transcribed Date/Time: 11/02/2019 (1202) ? Stem Dryer Maintainer: ? Printed Date/Time: 11/02/2019 (12 02) ? PAGE 2 ? Adriana d Report ? Procedure Note Zane Hodgson MD - 11/02/2019 EXAM: MAGNETIC RESONANCE IMAGING/ART FRAMING MANAGER AL EX. D/ (1124) CLINICAL INFORMATION: H91.8X2 ASYMMETRICAL HEARING LOSS LEFT EAR H93.12 LEFT TINNITUS, R42 DIZZINESS INTERNAL AUDITORY CANALS Signs and Symptoms/Comments: H91.8X2 YMMETRICAL HEARING LOSS LEFT EAR, H93.12 LEFT TINNITUS, R42 DIZZINES S Comparisons: None. Technique: Contrast-enhanced MR brain w as performed with the following sequences: Sagittal T1, axial T2, axial T2 FLAIR, axial DWI, axial T1, axial FIESTA, axial susc eptibility, coronal T1, and post gadolinium axial and coronal T1 fa t-sat. High-resolution images were performed through the level of the internal auditory canals. 7.5 cc Gadavist intravenous contrast was ad ministered. FINDINGS: Brain: There is an avidly enhancing LEF T internal auditory canal mass measuring 17 x 7 x 6 mm (postcontrast a xial series 15 image 8; coronal series 16 image 8). The mass garcia s a smooth contour and a cone-like morphology, highly suspicious for a vestibular schwannoma. Small internal cystic components are vi sible, also suggestive of a schwannoma (axial fiesta series 10 imag e 47). Tiny internal foci of susceptibility cannot be excluded, susp icious for either microcalcifications or microhemorrhage. The mass occupies the entirety of the left IAC, bulging sligh tly into the left cerebellopontine angle. There is no ass ociated mass effect on the adjacent left middle cerebellar peduncl e at this time. Neurosurgical consultation is recommended. No contralateral right IAC or cerebello pontine angle mass is identified. The right 7th and 8th crani al nerves are normal in signal and morphology. The cochlea and semicir cular canals appear unremarkable bilaterally. No mastoid or middle ear effusion is visible. Save for the aforementioned left IAC ma ss, no additional intracranial masses are identified. After allowing f or mild motion artifact, no significant T2 FLAIR signal abnormality is visible within the brain parenchyma. No midline shift is present . The basal cisterns are patent. The ventricles are unremarkable . Suarez-white differentiation is preserved. No restricted diffusion i s identified to suggest acute ischemia. The major flow voids are pres erved. Orbits: The globes and orbits are jacky l. Paranasal sinuses: Mild scattered paran sandhya sinus mucosal thickening is present. No layering fluid is visibl e. Middle ear cavities Mastoid air cells: The mastoid air cells and middle ear cavities are clear. PAGE 1 Signed Report (CONTINUED) Bones: The osseous structures are unrem arkable. Extracranial soft tissues: The extracra nial soft tissues are unremarkable. IMPRESSION: 1. Avidly enhancing 17 mm LEFT IAC mass , highly suspicious for a vestibular schwannoma. Neurosurgical co nsultation recommended. 2. Otherwise unremarkable contrast-enha nced MR brain for age. Dr. Zane Hodgson discussed these find ings with Iesha Huynh RN (for Dr. Leong) on 11/02/2019 11:49 AM. REPORT SIGNED IN OTHER VENDOR SYSTEM 11/02/2019 Reported By: Zane Hodgson MD CC: Syed Leong MD Transcribed Date/Time: 11/02/2019 (1202 ) Stem Dryer Maintainer: Printed Date/Time: 11/02/2019 (1202) PAGE 2 Signed Report Performing Organization Address City/State/ZIP Code Phon e Number [facility] documented in this encounter Visit Diagnoses Not on filedocumented in this encounter Care Teams Air Sampling And Monitoring Relationship Specialty Start Date End Date Syed Leong MD PCP - General 04/08/09 0 Unknown, ProviderMD PCP - General 11/24/20 documented as of this encounter
--- OUTSIDE RECORDS SUMMARY | 2022-02-27 01:25 | XMS_ITS | Encounter Summary ---
:1980 Author Organization [facility] Address [address] [place] [address] Care Team Providers Name Role Phone Syed eLong MD Primary Care Provider Unavailable Encounter Details Date Type Department Care Team Description 06/14/2018 Historical Results Only [facility] - Syed Leong [facility] - [facility] Marcella us Sonya MD [address] [place] [address] Social History Tobacco Use Types [...] Name Priority Date/Time Associated Diagnosis Comme nts HEPATITIS C AB W Routine 06/14/2018 15:30 Results for this REFLEX TO HCV RNA EDT procedure are in BY PCR the results section. documented in this encounter Results HEPATITIS C AB W REFLEX TO HCV RNA BY PCR (06/14/2018 15:30 EDT) HEPATITIS C AB NegativeComment: [facility] W/REFLEX - [facility] Expected Values: [facility] Negative. Specimen Narrative [facility] - 018 17:23 EDT Does PT Have a Latex Allergy? NO Enter/Edit CPT and ICD codes? N Performing Organization Address City/State/ZIP Code Phon e Number [facility] [address] [place] [address] [facility] documented in this encounter Visit Diagnoses Not on filedocumented in this encounter Care Teams Clinical Safety Specialist Relationship Specialty Start Date End Date Syed Leong MD PCP - General 04/08/09 0 documented as of this encounter
--- OUTSIDE RECORDS SUMMARY | 2022-02-27 01:25 | XMS_ITS | Encounter Summary ---
:1980 Author Organization [facility] Address [address] [place] [address] Care Team Providers Name Role Phone Syed Leong MD Primary Care Provider Unavailable Reason for Visit Reason Comments Follow-up Encounter Details Date Type Department Care Team Description 12/02/2017 Office Visit [facility] Sami Edwards Non-r ecurrent General Surgery - MD Mary unilateral inguinal [place] [address] hernia without [address] obstruction or [address] [place], [place] gangrene (Primary Dx) [place] [phone] Social History Tobacco Use Types Packs/Day Years Used Date Former Smoker Cigarettes 10 Quit: 03/25/20 09 Smokeless Tobacco: Never Used Alcohol Use Standard Drinks/Week Comments No 0 (1 standard drink = 0.6 oz pure alcoho l) occ Sex Assigned at Date Recorded Male 03/11/2020 9:13 EDT documented as of this encounter Last Filed Vital Signs Vital Sign Reading Time Taken Comments Blood Pressure 133/77 12/02/2017 0949 EDT Pulse 61 12/02/2017 0949 EDT Temperature - - Respiratory Rate - - Oxygen Saturation - - Inhaled Oxygen Concentration - - Weight 72.6 kg (160 lb) 12/02/2017 0949 EDT Height 172.7 cm (5' 8) 12/02/2017 0949 EDT Body Mass Index 24.33 12/02/2017 0949 EDT documented in this encounter Progress Notes Sami Edwards MD - 12/02/2017 1000 EDT Subjective: Flavio Hamm presents to the clinic 2 weeks following right inguinal hernia repair. Eating a regular diet without difficulty. Bowel movements are normal. The patient is not having any pain. However one week after surgery he developed significant right testicular pain. He went to the [facility] and anUS revealed epididymitis and treated with abx. This has now improved markedly. Objective: BP 133/77 Pulse 61 Ht 172.7 cm (68) Wt 72.6 kg (160 lb) BMI 24.33 kg/m2 General: alert and cooperative Abdomen: soft, bowel sounds active Incision: healing well, no erythema mild fibrotic ridge. The right testicle is non tender. Assessment: Doing well postoperatively. Plan: 1. Operative findings reviewed and discussed with the patient and his . 2. Wound care discussed. Epididymitis resolved, however this may have been a result of inflammation of the area associated with surgery. 3. Pt is to increase activities as tolerated. 4. Follow up as needed. documented in this encounter Plan of Treatment Not on filedocumented as of this encounter Visit Diagnoses Diagnosis Non-recurrent unilateral inguinal hernia without obstruction or gangrene - Primary documented in this encounter Care Teams Machine I Engraver Relationship Specialty Start Date End Date Syed Leong MD PCP - General 04/08/09 0 documented as of this encounter
--- OUTSIDE RECORDS SUMMARY | 2022-02-27 01:25 | XMS_ITS | Encounter Summary ---
:1980 Author Organization [facility] Address [address] [place] [address] Care Team Providers Name Role Phone Syed Leong MD Primary Care Provider Unavailable Reason for Visit Reason Onset Date Comments Results 06/15/2018 Encounter Details Date Type Department Care Team Description 06/15/2018 Telephone [facility] Syed Leong MD Results Medicine - [address] [address] Social History Tobacco Use Types Packs/Day Years Used Date Former Smoker Cigarettes 10 Quit: 03/25/20 09 Smokeless Tobacco: Never Used Alcohol Use Standard Drinks/Week Comments No 0 (1 standard drink = 0.6 oz pure alcoho l) occ Sex Assigned at Date Recorded Male 03/11/2020 9:13 EDT documented as of this encounter Miscellaneous Notes Telephone Encounter - Bear Willingham - 06/15/2018 1132 EDT Patient notified elephone Encounter - Syed Leong MD - 06/15/2018 1042 EDT Please call the patient to let him know his hepatitis C antibody level was normal showing no infection. documented in this encounter Plan of Treatment Not on filedocumented as of this encounter Visit Diagnoses Not on filedocumented in this encounter Care Teams Accounts Receivable Supervisor Relationship Specialty Start Date End Date Leong, Syed D, MD PCP - General 04/08/09 0 documented as of this encounter
--- OUTSIDE RECORDS SUMMARY | 2022-02-27 01:25 | XMS_ITS | Encounter Summary ---
:[address] [facility] Address [address] [place] [address] Care Team Providers Name Role Phone Syed Leong MD Primary Care Provider Unavailable Reason for Visit Reason Comments Joint Swelling Pt here today w/ ongoing R e lbow pain; sx's since August-pt states very sore with movement and touch Encounter Details Date Type Department Care Team Description 10/25/2015 Office Visit [facility] Simone Rodriguez Right lateral Family Medicine - MD Viraj epicondylitis (Primary [place] [address] Dx) [address] [facility] [address] [place] [phone] Social History Tobacco Use Types Packs/Day [...] Sign Reading Time Taken Comments Blood Pressure 124/78 10/25/2015 1551 EST Pulse 88 10/25/2015 1551 EST Temperature - - Respiratory Rate - - Oxygen Saturation - - Inhaled Oxygen Concentration - - Weight - - Height - - Body Mass Index - - documented in this encounter Patient Instructions Patient InstructionsSimone Rodriguez MD - 10/25/2015 16:04 EST Theraband tennis elbow documented in this encounter Ordered Prescriptions Prescription Sig Dispensed Refills Start Date End Date indomethacin (INDOCIN SR) Take 1 Cap by mouth 60 Cap 2 0 10/25/2015 08/19/2016 75 mg SR capsule 2 times daily. documented in this encounter Progress Notes Simone Rodriguez MD - 10/25/2015 1558 EST Subjective: Patient ID: Flavio Hamm is an 34 y.o. male. Chief Complaint Patient presents with ??? Joint Swelling Pt here today w/ ongoing R elbow pain; sx's since August-pt states very sore with movement and touch HPI Pt here to discuss right elbow pain since . Started a workout routine and within one week had right lateral epicondylar pain. 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 Tried wearing sleeve with lateral epicondyle band which helped initially but stopped working. Pain with shaking hands, with swinging a hammer. Takes advil 400mg BID prn. No numbness/tinging/weakness distally. Patient Active Problem List Diagnosis ??? Left-sided tinnitus ??? Hearing loss in left ear ??? Gastroesophageal reflux disease ??? Low back pain without sciatica Past Medical History Diagnosis Date ??? Hearing loss Left high frequency with assoc. Tinnitus Current Outpatient Prescriptions on File Prior to Visit Medication Sig Dispense Refill ??? acetaminophen (TYLENOL) 325 mg tablet Take 650 mg by mouth every 4 hours as needed for Pain. ??? ibuprofen (MOTRIN) 600 mg tablet Take 600 mg by mouth every 6 hours as needed for Pain. ??? omeprazole (PRILOSEC) 40 mg capsule Take 1 Cap by mouth daily 90 Cap 3 No current facility-administered medications on file prior to visit. Allergies Allergen Reactions ??? Augmentin [Amoxicillin-Pot Clavulanate] Swelling of tongue ??? Naproxen Other (See Comments) Throat swelled 08/18 ??? Sulfa (Sulfonamide Antibiotics) ??? Wellbutrin [Bupropion] Social History Substance Use Topics ??? Smoking status: Former Smoker -- 10 years Types: Cigarettes Quit date: 03/25/2009 ??? Smokeless tobacco: Never Used ??? Alcohol Use: No Comment: occ ROS - See HPI Objective: BP 124/78 mmHg Pulse 88 Physical Exam Constitutional: He appears well-developed and well-nourished. No distress. HENT: Head: Normocephalic and atraumatic. Eyes: Pupils are equal, round, and reactive to light. Cardiovascular: Normal rate. Pulmonary/Chest: Effort normal. Musculoskeletal: Very sore with shaking hands. TTP over lateral epicondyle. Neurovascularly intact distally. Pain with resisted wrist extension and with resisted supination of right arm. Neurological: He is alert. Skin: Skin is warm. He is not diaphoretic. Psychiatric: He has a normal mood and affect. His behavior is normal. Nursing note and vitals reviewed. Assessment: 34 yo male with right lateral epicondylitis - Continue with right wrist band - Discussed theraband for lateral epicondylitis - rx NSAID - Ice - Modify activities as able - difficult with his occupation - f/u if no improvement to consider PT and/or ortho for injections Plan: Flavio was seen today for joint swelling. Diagnoses and all orders for this visit: Right lateral epicondylitis Other orders - indomethacin (INDOCIN SR) 75 mg SR capsule; Take 1 Cap by mouth 2 times daily. documented in this encounter Plan of Treatment Not on filedocumented as of this encounter Visit Diagnoses Diagnosis Right lateral epicondylitis - Primary Lateral epicondylitis of elbow documented in this encounter Care Teams Nursing Support Worker Relationship Specialty Start Date End Date Syed Leong MD PCP - General 04/08/09 0 documented as of this encounter
--- OUTSIDE RECORDS SUMMARY | 2022-02-27 01:25 | XMS_ITS | Encounter Summary ---
:1980 Author Organization [facility] Address [address] [place] [address] Care Team Providers Name Role Phone Syed Leong MD Primary Care Provider Unavailable Reason for Visit Reason Onset Date Comments Other 11/24/2017 Encounter Details Date Type Department Care Team Description 11/24/2017 Telephone [facility] Ceasar Mehta RN Other Surgery - [address] [place] [phone] Social History Tobacco Use Types Packs/Day Years Used Date Former Smoker Cigarettes 10 Quit: 03/25/20 09 Smokeless Tobacco: Never Used Alcohol Use Standard Drinks/Week Comments No 0 (1 standard drink = 0.6 oz pure alcoho l) occ Sex Assigned at Date Recorded Male 03/11/2020 9:13 EDT documented as of this encounter Miscellaneous Notes Telephone Encounter - Roxanne Briceno - 11/30/2017 1548 EDT Pt called today to reschedule post op sched. for . It was either sched Th the or the or . He preferred the sooner appt. He is not having any problems but has questions regarding when he can resume working out so he chosethis thdecember 02. elephone Encounter - Moraima Saldana - 11/25/2017 1149 EDT Patient returned call, please try again. documented in this encounter Plan of Treatment Not on filedocumented as of this encounter Visit Diagnoses Not on filedocumented in this encounter Care Teams Optical Glass Wet Inspector Relationship Specialty Start Date End Date Syed Leong MD PCP - General 04/08/09 0 documented as of this encounter
--- OUTSIDE RECORDS SUMMARY | 2022-02-27 01:25 | XMS_ITS | Encounter Summary ---
:1980 Author Organization [facility] Address [address] [place] [address] Care Team Providers Name Role Phone Syed Leong MD Primary Care Provider Unavailable Reason for Visit Reason Onset Date Comments Diarrhea 06/06/2014 Encounter Details Date Type Department Care Team Description 06/06/2014 Telephone [facility] Family Syed Leong MD Diarrhea Medicine - [address] [address] Social History Tobacco Use Types Packs/Day Years Used Date Former Smoker Cigarettes 10 Quit: 03/25/20 09 Smokeless Tobacco: Never Used Alcohol Use Standard Drinks/Week Comments No 0 (1 standard drink = 0.6 oz pure alcoho l) occ Sex Assigned at Date Recorded Male 03/11/2020 9:13 EDT documented as of this encounter Miscellaneous Notes Telephone Encounter - Tania Waldrop RN - 06/06/2014 5013 EDT He is currently on aZithromycin. (he had campobactor infection before and after appendectomy which ended up not being the problem -it was this infection-)so he went back in for IV therapy after discharged home. Dr Shoemaker was surgeon and Dr Mcdonald was the hospitalist. Left hospital on oral antibiotic -was fine -than today mid day restarted with same foul diarrhea. Dr Shoemaker also called. He will wait for Dr shoemaker to call-he does not want to involve too many doctors. I advised if he got worse to go backto er. He agreed with plan elephone Encounter - Gaby Mosher - 06/06/2014 1507 EDT Reason for Call: Diarrhea Summary/Symptoms: Patient was seen recently and diagnosed with some kind of colitis and is currentlytaking antibiotics. He has developed diarrhea today and is concerned about that. Would we be able tocall him? His is also going to be in touch somehow with Dr. Shoemaker who did a surgery recently. Onset and Duration? Appointment Offered? No Gaby Mosher 06/06/2014 15:07 documented in this encounter Plan of Treatment Not on filedocumented as of this encounter Visit Diagnoses Not on filedocumented in this encounter Care Teams Button Tufting Machine Operator Relationship Specialty Start Date End Date Syed Leong MD PCP - General 04/08/09 0 documented as of this encounter
--- OUTSIDE RECORDS SUMMARY | 2022-02-27 01:25 | XMS_ITS | Encounter Summary ---
:1980 Author Organization [facility] Address [address] [place] [address] Care Team Providers Name Role Phone Syed Leong MD Primary Care Provider Unavailable Reason for Referral Laboratory Services (Routine) - New Request Specialty Diagnoses / Procedures Referred By Contact Refer red To Contact Diagnoses Exposure to hepatitis C Syed Leong MD Procedures HEPATITIS C AB W REFLEX TO HCV RNA BY PCR [address] [place] [address] [address] Referral ID Status Reason Start Date Expiration Date Visits V isits Requested Authorized [id number] New Request 06/14/2018 1 1 Reason for Visit Reason Onset Date Comments Labs Only 06/14/2018 Encounter Details Date Type Department Care Team Description 06/14/2018 Telephone [facility] Syed Leong MD Labs Only Medicine - [facility] [address] [facility] [address] [address] Social History Tobacco Use Types Packs/Day Years Used Date Former Smoker Cigarettes 10 Quit: 03/25/20 09 Smokeless Tobacco: Never Used Alcohol Use Standard Drinks/Week Comments No 0 (1 standard drink = 0.6 oz pure alcoho l) occ Sex Assigned at Date Recorded Male 03/11/2020 9:13 EDT documented as of this encounter Miscellaneous Notes Telephone Encounter - Tania Waldrop RN - 06/14/2018 1407 EDT Notified appointment made elephone Encounter - Syed Leong MD - 06/14/2018 1336 EDT Hep c ordered As far as cancer screening, this issue would be best answered at a physical exam which she has not had in 5 years. I would recommend he schedule a physical exam so we can discuss that issue when more. If he could also be prepared to give for information about his father's cancer that would be good. elephone Encounter - Anderson Person - 06/14/2018 1310 EDT Pt calling to get Hep C testing just to reassure himself that he does not have it. He is also wondering when he should start getting cancer screenings- he said his father at age 30 and he had cancer at the time but didn't really get into the specifics. documented in this encounter Plan of Treatment Not on filedocumented as of this encounter Procedures Procedure Name Priority Date/Time Associated Diagnosis Comme nts HEPATITIS C AB W Routine 06/14/2018 Exposure to hepatitis Re sults for this REFLEX TO HCV RNA BY C procedu re are in the PCR results section . documented in this encounter Results HEPATITIS C AB W REFLEX TO HCV RNA BY PCR (06/14/2018) Pathologist Sig nature Hepatitis C Ab Negative [facility] Specimen Blood specimen (specimen) Performing Organization Address City/State/ZIP Code Phon e Number [facility] [address] [place], [place] [id number] [place] [address] LAB documented in this encounter Visit Diagnoses Diagnosis Exposure to hepatitis C - Primary Contact with or exposure to other viral diseases documented in this encounter Care Teams Pool Finisher Relationship Specialty Start Date End Date Syed Leong MD PCP - General 04/08/09 0 documented as of this encounter
--- OUTSIDE RECORDS SUMMARY | 2022-02-27 01:25 | XMS_ITS | Encounter Summary ---
:1980 Author Organization [facility] Address [address] [place] [address] Care Team Providers Name Role Phone Syed Leong MD Primary Care Provider Unavailable Reason for Visit Reason Onset Date Comments Follow-up 11/25/2017 Encounter Details Date Type Department Care Team Description 11/25/2017 Telephone [facility] General Abdiel Edwards, Follow-up Surgery - [facility] [address] [facility] [address] [place] [address] [place] [phone] (Wo rk) Social History Tobacco Use Types Packs/Day Years Used Date Former Smoker Cigarettes 10 Quit: 03/25/20 09 Smokeless Tobacco: Never Used Alcohol Use Standard Drinks/Week Comments No 0 (1 standard drink = 0.6 oz pure alcoho l) occ Sex Assigned at Date Recorded Male 03/11/2020 9:13 EDT documented as of this encounter Miscellaneous Notes Telephone Encounter - Sami Edwards MD - 11/25/2017 0911 EDT Pt developed scrotal/testicualr pain and swelling. He went to . and dx with epididymitis. Left message asked pt to call back. documented in this encounter Plan of Treatment Not on filedocumented as of this encounter Visit Diagnoses Not on filedocumented in this encounter Care Teams Inspector Returned Materials Relationship Specialty Start Date End Date Leong, Syed D, MD PCP - General 04/08/09 0 documented as of this encounter
--- OUTSIDE RECORDS SUMMARY | 2022-02-27 01:25 | XMS_ITS | Encounter Summary ---
:1980 Author Organization [facility] Address [address] [place] [address] Care Team Providers Name Role Phone Syed Leong MD Primary Care Provider Unavailable Reason for Visit Reason Onset Date Comments Hearing Loss 05/03/2019 Encounter Details Date Type Department Care Team Description 05/03/2019 Telephone [facility] ENT - Lico Gregg AuD Hearing Loss [address] [place], [place] [id number] [place] [phone] (Wo rk) Social History Tobacco Use Types Packs/Day Years Used Date Former Smoker Cigarettes 10 Quit: 03/25/20 09 Smokeless Tobacco: Never Used Alcohol Use Standard Drinks/Week Comments No 0 (1 standard drink = 0.6 oz pure alcoho l) occ Sex Assigned at Date Recorded Male 03/11/2020 9:13 EDT documented as of this encounter Miscellaneous Notes Telephone Encounter - Lico Salazar - 05/03/2019 1144 EDT Documentation from 04/21/19 hearing test visit was lost. Recreating the note, I wanted to be sure thatFam and I had the same plan in mind. We spoke on the phone. He understands that MRI is likely the next step for evaluating his gradually progressing left hearing loss and that it will be up to him and Dr. Leong to decide if this is the right plan and how to proceed in a way that Fam can tolerate. documented in this encounter Plan of Treatment Not on filedocumented as of this encounter Visit Diagnoses Not on filedocumented in this encounter Care Teams River Tester Relationship Specialty Start Date End Date Syed Leong MD PCP - General 04/08/09 0 documented as of this encounter
--- OUTSIDE RECORDS SUMMARY | 2022-02-27 01:25 | XMS_ITS | Encounter Summary ---
:1980 Author Organization [facility] Address [address] [place] [address] Care Team Providers Name Role Phone Syed Leong MD Primary Care Provider Unavailable Encounter Details Date Type Department Care Team Description 03/20/2019 Results Only [facility] Syed Leong MD [facility] [address] [facility] [address] [place] [address] Social History Tobacco Use Types Packs/Day Years [...] Procedure Name Priority Date/Time Associated Comments Diagnosis COMPREHENSIVE Routine 03/20/2019 17:00 Results fo r this METABOLIC PANEL ([facility]) EDT proce dure are in the results section. C REACTIVE PROTEIN Routine 03/20/2019 17:00 Resul ts for this EDT procedure are i n the results section. documented in this encounter Results C REACTIVE PROTEIN (03/20/2019 17:00 EDT) Pathologist Sig nature C-Reactive Protein, <5.0 <10.0 mg/L [facility] Specimen Narrative [facility] - 019 17:40 EDT Does PT Have a Latex Allergy? NO Performing Organization Address City/State/ZIP Code Phon e Number [facility] [address] [place], [place] [id number] [place] [address] LAB COMPREHENSIVE METABOLIC PANEL ([facility]) (03/20/2019 17:00 EDT) Albumin, External 4.7 3.4 - 4.9 [facility] g/dL [facility] Total Alkaline 51 38 - 126 U/L [facility] Phosphatase, [facility] External Bilirubin, Total, 0.3 0.2 - 1.3 [facility] External mg/dL [facility] Bun, External 21 10 - 26 mg/dL [facility] Calcium, External 10.1 8.5 - 10.5 [facility] mg/dL [facility] Chloride, External 101 96 - 110 [facility] mmol/L [facility] CO2, External 29 21 - 32 mEq/L [facility] Creatinine, 1.01 0.66 - 1.25 [facility] External mg/dL [facility] GFR, Kelvin/Est., >60 [facility] External Comment: [facility] Chronic renal impairment is defined as GFR <60 Multiply result by 1.210 for patients . Glucose, Serum, 93 70 - 100 [facility] External mg/dL [facility] Potassium, 4.5 3.5 - 5.0 [facility] External mEq/L [facility] Sodium, External 138 136 - 145 [facility] mEq/L [facility] Total Protein, 7.3 6.2 - 8.2 [facility] External gm/dL [facility] AST, External 34 17 - 59 U/L [facility] ALT, External 44 21 - 72 U/L [facility] Specimen Narrative [facility] - 019 17:40 EDT Does PT Have a Latex Allergy? NO Performing Organization Address City/State/ZIP Code Phon e Number [facility] [address] [facility] [place] [address] [facility] documented in this encounter Visit Diagnoses Not on filedocumented in this encounter Care Teams Meatman Relationship Specialty Start Date End Date Syed Leong MD PCP - General 04/08/09 0 documented as of this encounter
--- OUTSIDE RECORDS SUMMARY | 2022-02-27 01:25 | XMS_ITS | Encounter Summary ---
:1980 Author Organization [facility] Address [address] [place] [address] Care Team Providers Name Role Phone Syed Leong MD Primary Care Provider Unavailable Reason for Visit Reason Onset Date Comments Anxiety 11/23/2014 Encounter Details Date Type Department Care Team Description 11/23/2014 Telephone [facility] Family Syed Leong MD Anxiety Medicine - [address] [address] Social History Tobacco Use Types Packs/Day Years Used Date Former Smoker Cigarettes 10 Quit: 03/25/20 09 Smokeless Tobacco: Never Used Alcohol Use Standard Drinks/Week Comments No 0 (1 standard drink = 0.6 oz pure alcoho l) occ Sex Assigned at Date Recorded Male 03/11/2020 9:13 EDT documented as of this encounter Miscellaneous Notes Telephone Encounter - Jodee Skinner RN - 11/23/2014 1135 EDT Patient had only taken 1 mg dose. Read message from dr Leong to patient's , will have him try2mg with his next dose. Will report back if does not help. elephone Encounter - Syed Leong MD - 11/23/2014 1122 EDT How much did he use? May not have used enough. 1 mg pills. Okay to use up to 2 mg at a dose elephone Encounter - Gaby Mosher - 11/23/2014 1033 EDT Patient's reports that the lorazepam did not have any effect on patient's anxiety when he took it at home. What to do next for the MRI? documented in this encounter Plan of Treatment Not on filedocumented as of this encounter Visit Diagnoses Not on filedocumented in this encounter Care Teams Infection Control Preventionist Relationship Specialty Start Date End Date Syed Leong MD PCP - General 04/08/09 0 documented as of this encounter
--- OUTSIDE RECORDS SUMMARY | 2022-02-27 01:25 | XMS_ITS | Encounter Summary ---
:1980 Author Organization [facility] Address [address] [place] [address] Care Team Providers Name Role Phone Syed Leong MD Primary Care Provider Unavailable Reason for Visit Reason Comments Knee Pain Pt here for left knee pain f or the last 3 weeks; went to [facility] care and had a prescription of Predni sone but states he had some mental changes and stopped taking it Encounter Details Date Type Department Care Team Description 10/06/2017 Office Visit [facility] Beverly Brothers , ROXANN Left knee pain, Family Medicine - [address] unspecified chronicity [place] [address] (Primary Dx) [address] [place], [place] [address] [phone] [place], [place] [id number] Social History Tobacco Use Types Packs/Day Years Used Date Former Smoker Cigarettes 10 Quit: 03/25/20 09 Smokeless Tobacco: Never Used Alcohol Use Standard Drinks/Week Comments No 0 (1 standard drink = 0.6 oz pure alcoho l) occ Sex Assigned at Date Recorded Male 03/11/2020 9:13 EDT documented as of this encounter Last Filed Vital Signs Vital Sign Reading Time Taken Comments Blood Pressure 134/84 10/06/2017 1557 EST Pulse 99 10/06/2017 1557 EST Temperature 36.5 ??C (97.7 ??F) 10/06/2017 1557 EST Respiratory Rate - - Oxygen Saturation 100% 10/06/2017 1557 EST Inhaled Oxygen Concentration - - Weight 81.2 kg (179 lb) 10/06/2017 1557 EST Height - - Body Mass Index 27.22 01/12/2017 0931 EDT documented in this encounter Patient Instructions Patient InstructionsBeverly Brothers NP - 10/06/2017 16:30 EST Images from the original note were not included. [facility] Patient Instructions Joint Pain: Care Instructions Your Care Instructions Many people have small aches and pains from overuse or injury to muscles and joints. Joint injuries often happen during sports or recreation, work tasks, or projects around the home. An overuse injury can happen when you put too much stress on a joint or when you do an activity that stresses the jointover and over, such as using the computer or rowing a boat. You can take action at home to help your muscles and joints get better. You should feel better in 1 to 2 weeks, but it can take 3 months or more to heal completely. Follow-up care is a akbar part of your treatment and safety. Be sure to make and go to all appointments, and call your doctor if you are having problems. It's also a good idea to know your test results and keep a list of the medicines you take. How can you care for yourself at home? ?? Do not put weight on the injured joint for at least a day or two. ?? For the first day or two after an injury, do not take hot showers or baths, and do not use hot packs. The heat could make swelling worse. ?? Put ice or a cold pack on the sore joint for 10 to 20 minutes at a time. Try to do this every 1 to 2 hours for the next 3 days (when you are awake) or until the swelling goes down. Put a thin cloth between the ice and your skin. ?? Wrap the injury in an elastic bandage. Do not wrap it too tightly because this can cause more swelling. ?? Prop up the sore joint on a pillow when you ice it or anytime you sit or lie down during the next3 days. Try to keep it above the level of your heart. This will help reduce swelling. ?? Take an duwm-xir-ibxfakx pain medicine, such as acetaminophen (Tylenol), ibuprofen (Advil, Motrin), or naproxen (Aleve). Read and follow all instructions on the label. ?? After 1 or 2 days of rest, begin moving the joint gently. While the joint is still healing, you can begin to exercise using activities that do not strain or hurt the painful joint. When should you call for help? Call your doctor now or seek immediate medical care if: ? ?? You have signs of infection, such as: ?? Increased pain, swelling, warmth, and redness. ?? Red streaks leading from the joint. ?? A fever. ?Watch closely for changes in your health, and be sure to contact your doctor if: ? ?? Your movement or symptoms are not getting better after 1 to 2 weeks of home treatment. Where can you learn more? Go to www.DGSE.net/MoqomedRapid Diagnosteker or log into your FOURward Thought Online account at [email or web address]. Enter P205 in the search box to learn more about Joint Pain: Care Instructions. Current as of: December 01, 2016 Content Version: 11.4 ?? 7811-7344 [place]. Care instructions adapted under license by [facility] If you have questions about a medical condition or this instruction, always ask your healthcare professional. [employer] disclaims any warranty or liability for your use of this information. [facility] Patient Instructions Lateral Collateral Ligament Sprain: Rehab Exercises Your Care Instructions Here are some examples of typical rehabilitation exercises for your condition. Start each exercise slowly. Ease off the exercise if you start to have pain. Your doctor or physical therapist will tell you when you can start these exercises and which ones will work best for you. How to do the exercises Knee flexion with heel slide 1. Lie on your back with your knees bent. 2. Slide your heel back by bending your affected knee as far as you can. Then hook your other foot around your ankle to help pull your heel even farther back. 3. Hold for about 6 seconds, then rest for up to 10 seconds. 4. Repeat 8 to 12 times. Heel slides on a wall 1. Lie on the floor close enough to a wall so that you can place both legs up on the wall. Your hipsshould be as close to the wall as is comfortable for you. 2. Start with both feet resting on the wall. Slowly let the foot of your affected leg slide down thewall until you feel a stretch in your knee. 3. Hold for 15 to 30 seconds. 4. Then slowly slide your foot up to where you started. 5. Repeat 2 to 4 times. Quad sets 1. Sit with your affected leg straight and supported on the floor or a firm bed. Place a small, rolled-up towel under your knee. Your other leg should be bent, with that foot flat on the floor. 2. Tighten the thigh muscles of your affected leg by pressing the back of your knee down into the towel. 3. Hold for about 6 seconds, then rest for up to 10 seconds. 4. Repeat 8 to 12 times. Short-arc quad 1. Lie on your back with your knees bent over a foam roll or a large rolled-up towel. 2. Lift the lower part of your affected leg and straighten your knee by tightening your thigh muscle. Keep the bottom of your knee on the foam roll or rolled-up towel. 3. Hold your knee straight for about 6 seconds, then slowly bend your knee and lower your leg back to the floor. Rest for up to 10 seconds between repetitions. 4. Repeat 8 to 12 times. Straight-leg raises to the front 1. Lie on your back with your good knee bent so that your foot rests flat on the floor. Your affected leg should be straight. Make sure that your low back has a normal curve. You should be able to slipyour hand in between the floor and the small of your back, with your palm touching the floor and your back touching the back of your hand. 2. Tighten the thigh muscles in your affected leg by pressing the back of your knee flat down to thefloor. Hold your knee straight. 3. Keeping the thigh muscles tight and your leg straight, lift your affected leg up so that your heel is about 12 inches off the floor. Hold for about 6 seconds, then lower slowly. 4. Relax for up to 10 seconds between repetitions. 5. Repeat 8 to 12 times. Hamstring set (heel dig) 1. Sit with your affected leg bent. Your good leg should be straight and supported on the floor. 2. Tighten the muscles on the back of your bent leg (hamstring) by pressing your heel into the floor. 3. Hold for about 6 seconds, then rest for up to 10 seconds. 4. Repeat 8 to 12 times. Hip adduction You will need a pillow for this exercise. 1. Sit on the floor with your knees bent. 2. Place a pillow between your knees. 3. Put your hands slightly behind your hips for support. 4. Squeeze the pillow by tightening the muscles on the inside of your thighs. 5. Hold for 6 seconds, then rest for up to 10 seconds. 6. Repeat 8 to 12 times. Hip abduction You will need a small pillow for this exercise. 1. Sit on the floor with your affected knee close to a wall. 2. Bend your affected knee but keep the other leg straight in front of you. 3. Place a pillow between the outside of your knee and the wall. 4. Put your hands slightly behind your hips for support. 5. Push the outside of your knee against the pillow and the wall. 6. Hold for 6 seconds, then rest for up to 10 seconds. 7. Repeat 8 to 12 times. Lateral step-up 1. Stand sideways on the bottom step of a staircase with your injured leg on the step and your otherfoot on the floor. Hold on to the banister or wall. 2. Use your injured leg to raise yourself up, bringing your other foot level with the stair step. Make sure to keep your hips level as you do this. And try to keep your knee moving in a straight line with your middle toe. Do not put the foot you are raising on the stair step. 3. Slowly lower your foot back down. 4. Repeat 8 to 12 times. Wall squats with ball You will need a large therapy ball for this exercise. Ask your doctor or physical therapist what size you will need, but it should be large enough to cover your back. 1. Stand with your back facing a wall. Place your feet about a shoulder-width apart. 2. Place the therapy ball between your back and the wall, and move your feet out in front of you so they are about a foot in front of your hips. 3. Keep your arms at your sides, or put your hands on your hips. 4. Slowly squat down as if you are going to sit in a chair, rolling your back over the ball as you squat. The ball should move with you but stay pressed into the wall. 5. Be sure that your knees do not go in front of your toes as you squat. 6. Hold for 6 seconds. 7. Slowly rise to your standing position. 8. Repeat 8 to 12 times. Follow-up care is a akbar part of your treatment and safety. Be sure to make and go to all appointments, and call your doctor if you are having problems. It's also a good idea to know your test results and keep a list of the medicines you take. Where can you learn more? Go to www.DGSE.net/EngineLab or log into your FOURward Thought Online account at [email or web address]. Enter A255 in the search box to learn more about Lateral Collateral Ligament Sprain: Rehab Exercises. Current as of: December 01, 2016 Content Version: 11.4 ?? 1382-1352 [place]. Care instructions adapted under license by [facility] If you have questions about a medical condition or this instruction, always ask your healthcare professional. [employer] disclaims any warranty or liability for your use of this information. documented in this encounter Discharge Disposition Disposition Code Departure Means Destination Auto Discharge documented in this encounter Progress Notes Beverly Brothers NP - 10/06/2017 1600 EST Subjective: Patient ID: Flavio Hamm is an 36 y.o. male. Chief Complaint Patient presents with ??? Knee Pain Pt here for left knee pain for the last 3 weeks; went to [facility] care and had a prescription of Prednisone but states he had some mental changes and stopped taking it HPI Here with left knee pain. No fall or trauma. Onset 3 weeks ago. He reports he has been involved in [facility] intensity interval training program. He does squats and is running. He has been out in the [employer] working and doing a lot of hiking thru the snow. Has noticed swelling on the left side of the knee,pain radiates anteriorly. Able to squat. No locking or giving out. Otherwise feeling well. Patient Active Problem List Diagnosis ??? Left-sided tinnitus ??? Hearing loss in left ear ??? Gastroesophageal reflux disease ??? Low back pain without sciatica Past Medical History: Diagnosis Date ??? Hearing [...] Antibiotics) ??? Wellbutrin [Bupropion] Social Social History Substance Use Topics ??? Smoking status: Former Smoker Years: 10.00 Types: Cigarettes Quit date: 03/25/2009 ??? Smokeless tobacco: Never Used ??? Alcohol use No Comment: occ Review of Systems Constitutional: Negative. Musculoskeletal: Positive for joint pain. Negative for falls. - See HPI Objective: BP 134/84 (BP Cuff Location: Right arm, Patient Position: Sitting, BP Cuff Sizes: Adult, regular) Pulse 99 Temp 36.5 ??C (97.7 ??F) (Oral) Wt 81.2 kg (179 lb) SpO2 100% BMI 27.22 kg/m2 Physical Exam Constitutional: He is oriented to person, place, and time. Vital signs are normal. He appears well-developed and well-nourished. No distress. Pulmonary/Chest: Effort normal. Musculoskeletal: Right knee - normal exam Left knee - no joint swelling, erythema or increased warmth. Tender along the lateral joint line. Non-tender distal IT band. Some discomfort with compression of patella, hyper-mobile patella noted. Neurological: He is alert and oriented to person, place, and time. Skin: Skin is warm and dry. Psychiatric: He has a normal mood and affect. His behavior is normal. Nursing note and vitals reviewed. Assessment: Generally healthy 36-year-old male with subacute left knee pain. No joint swelling or significant pain with exam, exam not consistent with ligament tear or instability. There is tenderness along the lateral joint line suggesting lateral meniscus and lateral collateral injury, possible IT band involvement, likely due to micro-trauma associated with high intensity training and running. Encouraged rest,frequent icing, NSAIDs. Provided patient handout regarding exercises and supportive care. Offered referral to physical therapy and patient declines at this time. Plan: Flavio was seen today for knee pain. Diagnoses and all orders for this visit: Left knee pain, unspecified chronicity was the attending physician available in the clinic today if needed. A consultation was not required. documented in this encounter Plan of Treatment Not on filedocumented as of this encounter Visit Diagnoses Diagnosis Left knee pain, unspecified chronicity - Primary documented in this encounter Discontinued Medications Medication Sig Discontinue Reason Start Date End Date citalopram (CELEXA) 20 mg Take 1 Tab by mouth 08/19/20 16 10/06/2017 tabletIndications: daily. Anxiety documented as of this encounter Care Teams Roller Gold Leaf Relationship Specialty Start Date End Date Syed Leong MD PCP - General 04/08/09 0 documented as of this encounter
--- OUTSIDE RECORDS SUMMARY | 2022-02-27 01:25 | XMS_ITS | Encounter Summary ---
:1980 Author Organization Health system Address [address] [place] [address] Care Team Providers Name Role Phone Syed Leong MD Primary Care Provider Unavailable Reason for Referral Consult (Routine/Next Available) - Closed Specialty Diagnoses / Procedures Referred By Contact Refer red To Contact Diagnoses Anxiety Beverly Brothers NP [address] [facility] [address] [place] [address] Referral ID Status Reason Start Date Expiration Date Visits V isits Requested Authorized [id number] Closed Specialty 08/19/2016 1 1 Services Required Question Answer Reason for Request: has a lot of anxiety, social pressure, started on citalopram and doing a bit better. would be nefit from CBT. Reason for Visit Reason Comments Anxiety Pt here today for f/u; pt st ates he's been feeling fine - thinking about weaning Encounter Details Date Type Department Care Team Description 08/19/2016 Office Visit [facility] Beverly Brothers NP Anxiety (Primary Dx) Family Medicine - [address] [place] [address] [place], [place] [address] [id number] [place] [address] Social History Tobacco Use Types [...] Sign Reading Time Taken Comments Blood Pressure 142/80 08/19/2016 1604 EST Pulse 88 08/19/2016 1604 EST Temperature 36.2 ??C (97.2 ??F) 08/19/2016 1604 EST Respiratory Rate - - Oxygen Saturation - - Inhaled Oxygen Concentration - - Weight 81.6 kg (180 lb) 08/19/2016 1604 EST Height - - Body Mass Index 27.37 04/04/2014 1116 EDT documented in this encounter Patient Instructions Patient InstructionsBeverly Brothers NP - 08/19/2016 16:00 EST Images from the original note were not included. [facility] Patient Instructions Gastroesophageal Reflux Disease (GERD): Care Instructions Your Care Instructions Gastroesophageal reflux disease (GERD) is the backward flow of stomach acid into the esophagus. The esophagus is the tube that leads from your throat to your stomach. A one-way valve prevents the stomach acid from moving up into this tube. When you have GERD, this valve does not close tightly enough. If you have mild GERD symptoms including heartburn, you may be able to control the problem with antacids or okof-ohy-tciaogg medicine. Changing your diet, losing weight, and making other lifestyle changes can also help reduce symptoms. Follow-up care is a akbar part of your treatment and safety. Be sure to make and go to all appointments, and call your doctor if you are having problems. It???s also a good idea to know your test resultsand keep a list of the medicines you take. How can you care for yourself at home? ?? Take your medicines exactly as prescribed. Call your doctor if you think you are having a problemwith your medicine. ?? Your doctor may recommend muxu-ock-vftbvte medicine. For mild or occasional indigestion, antacids, such as Tums, Gaviscon, Mylanta, or Maalox, may help. Your doctor also may recommend gzcm-bhq-vgskvav acid reducers, such as Pepcid AC, Tagamet HB, Zantac 75, or Prilosec. Read and follow all instructions on the label. If you use these medicines often, talk with your doctor. ?? Change your eating habits. ?? It???s best to eat several small meals instead of two or three large meals. ?? After you eat, wait 2 to 3 hours before you lie down. ?? Chocolate, mint, and alcohol can make GERD worse. ?? Spicy foods, foods that have a lot of acid (like tomatoes and oranges), and coffee can make GERD symptoms worse in some people. If your symptoms are worse after you eat a certain food, you may want to stop eating that food to see if your symptoms get better. ?? Do not smoke or chew tobacco. Smoking can make GERD worse. If you need help quitting, talk to your doctor about stop-smoking programs and medicines. These can increase your chances of quitting for good. ?? If you have GERD symptoms at night, raise the head of your bed 6 to 8 inches by putting the frameon blocks or placing a foam wedge under the head of your mattress. (Adding extra pillows does not work.) ?? Do not wear tight clothing around your middle. ?? Lose weight if you need to. Losing just 5 to 10 pounds can help. When should you call for help? Call your doctor now or seek immediate medical care if: ?? You have new or different belly pain. ?? Your stools are black and tarlike or have streaks of blood. Watch closely for changes in your health, and be sure to contact your doctor if: ?? Your symptoms have not improved after 2 days. ?? Food seems to catch in your throat or chest. Where can you learn more? Go to www.MediGain.net/Dimeresedcenter or log into your Lawn Love Online account at [email or web address] Enter T927 in the search box to learn more about Gastroesophageal Reflux Disease (GERD): Care Instructions. ?? 2634-9828 [employer]. Care instructions adapted under license by [facility] This care instruction is for use with your licensed healthcare professional. If you have questions about a medical condition or this instruction, always ask your healthcare professional. [employer] disclaims any warranty or liability for your use of this information. Content Version: 11.0.140652; Current as of: August 02, 2015 documented in this encounter Ordered Prescriptions Prescription Sig Dispensed Refills Start Date End Date citalopram (CELEXA) 20 mg Take 1 Tab by mouth 90 Tab 1 1 10/20/2015 10/06/2017 tabletIndications: Anxiety daily. documented in this encounter Progress Notes Beverly Brothers NP - 08/19/2016 1600 EST Subjective: Patient ID: Flavio Hamm is an 35 y.o. male. Chief Complaint Patient presents with ??? Anxiety Pt here today for f/u; pt states he's been feeling fine - thinking about weaning HPI Here today to follow up for anxiety. Was started on citalopram, now at 20 mg daily. Takes 1/2 to 1 tab daily. He reports feeling much improved. He is no longer grinding his teeth as frequently. Feelinghe can be more reflective about his actions. Not feeling as angry or nervous. His sleep is much improved. He has a lot of guilt regarding use of the medication, because in his community and family it is regarded as taboo. He is conflicted because he is finding good relief taking the medication. He has declined psychotherapy in the past. He reports a falling out with his Reverend and has some concerns and worries regarding rumors/social tension around his community. Patient Active Problem List Diagnosis ??? Left-sided [...] 4 hours as needed for Pain. ??? diclofenac (VOLTAREN) 50 mg EC tablet Take 1 Tab by mouth 2 times daily. 60 Tab 1 ??? ibuprofen (MOTRIN) 600 mg tablet Take 600 mg by mouth every 6 hours as needed for Pain. ??? omeprazole (PRILOSEC) 40 mg capsule TAKE ONE CAPSULE BY MOUTH EVERY DAY 90 Cap [...] use No Comment: occ Review of Systems Psychiatric/Behavioral: Negative for substance abuse and suicidal ideas. The patient is nervous/anxious. The patient does not have insomnia. - See HPI Objective: Visit Vitals ??? BP (!) 142/80 ??? Pulse 88 ??? Temp 36.2 ??C (97.2 ??F) (Tympanic) ??? Wt 81.6 kg (180 lb) ??? BMI 27.37 kg/m2 Physical Exam Constitutional: He is oriented to person, place, and time. Vital signs are normal. He appears well-developed and well-nourished. No distress. Appears well groomed. Improved eye contact today, more open and talkative. Pulmonary/Chest: Effort normal. Neurological: He is alert and oriented to person, place, and time. Skin: Skin is warm and dry. Psychiatric: He has a normal mood and affect. His speech is normal and behavior is normal. Cognitionand memory are normal. Normal speech and affect. Nursing note and vitals reviewed. Assessment: 35 year old male with anxiety that has improved with daily use of Celexa. He has a goal to stay on Celexa for only short term. I think he would benefit from psychotherapy and he seems open to this idea. Declines flu vaccine. Plan: Flavio was seen today for anxiety. Diagnoses and all orders for this visit: Anxiety - citalopram (CELEXA) 20 mg tablet; Take 1 Tab by mouth daily. - plan to remain on citalopram for the next 3 months - Amb Consult/Follow Up Psychology - return in 3 months for follow up Other orders - Cancel: [id number] - Influenza Vaccine =>4YO Quad Preservative Free IM 30 minute appointment and over half of that time was spent counseling the patient regarding anxiety documented in this encounter Plan of Treatment Scheduled Referrals Name Type Priority Associated Order Schedule Diagnoses AMB CONS/FOLLOW UP Outpatient Referral Routine Anxiety Or dered: PSYCHOLOGY 08/19/2016 documented as of this encounter Visit Diagnoses Diagnosis Anxiety - Primary Anxiety state, unspecified documented in this encounter Discontinued Medications Medication Sig Discontinue Reason Start Date End Date cyclobenzaprine Take 1 Tab by mouth 07/16/201608/19 (FLEXERIL) 10 mg at bedtime as tabletIndications: TMJ needed for Muscle syndrome Spasms. indomethacin (INDOCIN SR) Take 1 Cap by mouth 10/25/19 16 08/19/2016 75 mg SR capsule 2 times daily. citalopram (CELEXA) 20 mg Take 1 Tab by mouth Reorder 07/16/20 16 08/19/2016 tabletIndications: daily. Start with Anxiety 1/2 tablet daily x 1 week; if well tolerated increase to 1 tab daily documented as of this encounter Care Teams Physician Practice Market Manager Relationship Specialty Start Date End Date Syed Leong MD PCP - General 04/08/09 0 documented as of this encounter
--- OUTSIDE RECORDS SUMMARY | 2022-02-27 01:25 | XMS_ITS | Encounter Summary ---
:1980 Author Organization [facility] Address [address] [place] [address] Care Team Providers Name Role Phone Syed Leong MD Primary Care Provider Unavailable Reason for Referral Radiology Services (Routine/Next Available) - Specialty Report Received Specialty Diagnoses / Procedures Referred By Contact Refer red To Contact Diagnoses Fatigue, unspecified type Myalgia Arthralgia, unspecified joint Syed Leong MD Procedures CHEST PA AND LATERAL [address] [facility] [address] [address] Referral ID Status Reason Start Date Expiration Date Visits V isits Requested Authorized [id number] Specialty 03/27/2019 1 1 Report Received Reason for Visit Reason Onset Date Comments Results 03/27/2019 Encounter Details Date Type Department Care Team Description 03/27/2019 Telephone [facility] Syed Leong MD Results Medicine - [place] [address] [place] [address] Social History Tobacco Use Types Packs/Day Years Used Date Former Smoker Cigarettes 10 Quit: 03/25/20 09 Smokeless Tobacco: Never Used Alcohol Use Standard Drinks/Week Comments No 0 (1 standard drink = 0.6 oz pure alcoho l) occ Sex Assigned at Date Recorded Male 03/11/2020 9:13 EDT documented as of this encounter Miscellaneous Notes Telephone Encounter - Syed Leong MD - 03/27/2019 5776 EDT Patient was seen a week ago with a number of different symptoms similar to when he was first diagnosed with Lyme disease but before he was treated. Lab tests were all normal which were done last week. I am hesitant to not pursue the symptoms because they do seem fairly dramatic but nonspecific. I would like to have him do a chest x-ray next. documented in this encounter Plan of Treatment Scheduled Orders Name Type Priority Associated Diagnoses Order S chedule CHEST PA AND LATERAL Imaging Routine Fatigue, un specified type Ordered: 03/27/2019 Myalgia Arthralgia, unspecified joint documented as of this encounter Visit Diagnoses Diagnosis Fatigue, unspecified type - Primary Myalgia Mylagia and myositis, unspecified Arthralgia, unspecified joint documented in this encounter Care Teams Grinder Hand Relationship Specialty Start Date End Date Syde Leong MD PCP - General 04/08/09 0 documented as of this encounter
--- OUTSIDE RECORDS SUMMARY | 2022-02-27 01:25 | XMS_ITS | Encounter Summary ---
:1980 Author Organization [facility] Address [address] [place] [address] Care Team Providers Name Role Phone Syed Leong MD Primary Care Provider Unavailable Reason for Referral Referral (Routine/Next Available) - Specialty Report Received Specialty Diagnoses / Procedures Referred By Contact Refer red To Contact Otolaryngology Diagnoses Asymmetrical hearing loss of left ear Syed Leong MD Kelley, Kairn S, AuD [address] [facility] [address] [place] [address] [address] [place] [phone] Phone: Fax: Referral ID Status Reason Start Expiration Visits Visits Date Date Requested Authorized [id number] Specialty Specialty 03/20/2019 1 1 Report Services Received Required Question Answer Reason for Referral: Comprehensive Hearing Eval aboratory Services (Routine) - New Request Specialty Diagnoses / Procedures Referred By Contact Refer red To Contact Diagnoses Myalgia Arthralgia, unspecified joint Fatigue, unspecified type Syed Leong MD Procedures LYME AB [address] [facility] [address] [place] [address] Referral ID Status Reason Start Date Expiration Date Visits V isits Requested Authorized [id number] New Request 03/20/2019 1 1 aboratory Services (Routine) - New Request Specialty Diagnoses / Procedures Referred By Contact Refer red To Contact Diagnoses Myalgia Arthralgia, unspecified joint Fatigue, unspecified type Syed Leong MD Procedures C REACTIVE PROTEIN 130 [facility] [address] [place] [address] Referral ID Status Reason Start Date Expiration Date Visits V isits Requested Authorized [id number] New Request 03/20/2019 1 1 aboratory Services (Routine) - New Request Specialty Diagnoses / Procedures Referred By Contact Refer red To Contact Diagnoses Myalgia Arthralgia, unspecified joint Fatigue, unspecified type Syed Leong MD Procedures COMPREHENSIVE METABOLIC PANEL (CMP) 130 [facility] [address] [address] Referral ID Status Reason Start Date Expiration Date Visits V isits Requested Authorized [id number] New Request 03/20/2019 1 1 aboratory Services (Routine) - New Request Specialty Diagnoses / Procedures Referred By Contact Refer red To Contact Diagnoses Myalgia Arthralgia, unspecified joint Fatigue, unspecified type Syed Leong MD Procedures COMPLETE BLOOD COUNT AND DIFFERENTIAL [address] [address] Referral ID Status Reason Start Date Expiration Date Visits V isits Requested Authorized [id number] New Request 03/20/2019 1 1 Reason for Visit Reason Comments Generalized Body Aches Pt is here with complaint of muscle aches, joint pain, fatigue since November. He went to [facility] and they told him he had the symptoms of Lyme disease and treated him with antibiotics. They said he would have to p ay out of pocket for the blood test. He has no history of a tick bite. Encounter Details Date Type Department Care Team Description 03/20/2019 Office Visit [facility] Syed Leong Myalgia (Primary Dx); Family Medicine - [place] Arthralgia , unspecified joint; [place] Fatigue, unspecified type; [address] [facility] Asymmetrical hearing loss of left ear [address] [address] Social History Tobacco Use Types Packs/Day Years Used Date Former Smoker Cigarettes 10 Quit: 03/25/20 09 Smokeless Tobacco: Never Used Alcohol Use Standard Drinks/Week Comments No 0 (1 standard drink = 0.6 oz pure alcoho l) occ Sex Assigned at Date Recorded Male 03/11/2020 9:13 EDT documented as of this encounter Last Filed Vital Signs Vital Sign Reading Time Taken Comments Blood Pressure 128/82 03/20/2019 1603 EDT Pulse 68 03/20/2019 1603 EDT Temperature 36.3 ??C (97.4 ??F) 03/20/2019 1603 EDT Respiratory Rate - - Oxygen Saturation 98% 03/20/2019 1603 EDT Inhaled Oxygen Concentration - - Weight 78.9 kg (174 lb) 03/20/2019 1603 EDT Height 174 cm (5' 8.5) 03/20/2019 1603 EDT Body Mass Index 26.07 03/20/2019 1603 EDT documented in this encounter Progress Notes Syed Leong MD - 03/20/2019 1600 EDT Subjective: Patient ID: Flavio Hamm is an 38 y.o. male. Chief Complaint Patient presents with ??? Generalized Body Aches Pt is here with complaint of muscle aches, joint pain, fatigue since November. [facility] treated him with antibiotics. They said hewould have to pay out of pocket for the blood test. He has no history of a tick bite. HPI Patient is here with symptoms beginning in about November. He began having what he felt like were low-grade fevers (they were not measured), muscle pains, fatigue, headaches, daytime sleepiness, arthralgias. This went on for a few weeks and then he went to [facility] urgent care where they said it sounded like Lyme disease but did not do any blood test. They gave him 4 weeks of doxycycline starting January 02. He felt much better after the antibiotics and then 3 weeks ago he began getting sick again feeling clammy, feeling like he had a low-grade fever, return of muscle pains joint pains. The joints of his right hand seems stiff in both knees sore. He actually had some swelling of his right MCPs. He never had any known tick bite or rash. He would get intermittent diarrhea which seem to come after the onset of some symptoms which, between the end of the antibiotics and the recurrence 3 weeks ago, was quite intermittent, about once a week. In 2010 he was diagnosed with an asymmetrical hearing loss in the left ear of about 25 dB. He was scheduled for an MRI but despite it being an open MRI and premedication he was unable to do this. He said his tinnitus is getting louder and his hearing loss more profound. He does not know much about his biological father's medical history but thinks he around the age of 30 and had hemophilia and may be colon cancer. 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 He is taking no supplements other than vitamins. He continues to exercise and runs routinely. Patient Active Problem List Diagnosis ??? Left-sided tinnitus ??? Hearing loss in left ear ??? Gastroesophageal reflux disease ??? Low back pain without sciatica ??? Non-recurrent unilateral inguinal hernia without obstruction or gangrene Past Medical History: Diagnosis Date ??? Hearing [...] ??? Drug use: No Review of Systems HENT: Positive for hearing loss and tinnitus. Eyes: Negative for blurred vision. Respiratory: Negative for cough and shortness of breath. Cardiovascular: Negative for chest pain and palpitations. Gastrointestinal: Positive for diarrhea. Negative for abdominal pain, nausea and vomiting. Musculoskeletal: Positive for joint pain and myalgias. Skin: Negative for rash. Neurological: Positive for headaches. Negative for tingling and sensory change. - See HPI Objective: BP 128/82 (BP Cuff Location: Right arm, Patient Position: Sitting, BP Cuff Sizes: Adult, large) Pulse 68 Temp 36.3 ??C (97.4 ??F) (Oral) Ht 174 cm (68.5) Wt 78.9 kg (174 lb) SpO2 98% BMI 26.07 kg/m?? Physical Exam Constitutional: No distress. HENT: Right Ear: Tympanic membrane and ear canal normal. Left Ear: Tympanic membrane and ear canal normal. Mouth/Throat: No oropharyngeal exudate. No tonsillar exudate. Eyes: Conjunctivae are normal. Neck: No thyromegaly present. Cardiovascular: Normal rate, regular rhythm and normal heart sounds. Pulmonary/Chest: Effort normal and breath sounds normal. No respiratory distress. Abdominal: Normal appearance and bowel sounds are normal. He exhibits no distension and no mass. There is no hepatosplenomegaly. There is no tenderness. There is no guarding. Musculoskeletal: He exhibits no edema. No obvious joint swelling. Lymphadenopathy: He has no cervical adenopathy. Neurological: He is alert. Skin: Skin is warm. No rash noted. No erythema. No pallor. Psychiatric: He has a normal mood and affect. His behavior is normal. Vitals reviewed. Assessment: 1???unclear etiology for his constellation of symptoms. If it was Lyme disease it seems like he had an adequate course of antibiotics so is unclear why he would have had recurrence of symptoms. This could be an autoimmune disorder or any number of other possibilities. First we will start with some screening lab tests. 2??? asymmetrical hearing loss/tinnitus: This needs further evaluation. It might require conscious sedation to obtain the MRI. Plan 1??? labs as below 2??? repeat audiology evaluation and consider MRI attempt with anesthesia Plan: Flavio was seen today for generalized body aches. Diagnoses and all orders for this visit: Myalgia Arthralgia, unspecified joint Fatigue, unspecified type - COMPLETE BLOOD COUNT AND DIFFERENTIAL - COMPREHENSIVE METABOLIC PANEL (CMP) - C REACTIVE PROTEIN - LYME AB Asymmetrical hearing loss of left ear - AMB CONS/FOLLOW UP AUDIOLOGY documented in this encounter Plan of Treatment Scheduled Orders Name Type Priority Associated Diagnoses Order S chedule COMPLETE BLOOD COUNT AND Lab Routine Myalgia Ordered: 03/20/2019 DIFFERENTIAL Arthralgia, unspecified joint Fatigue, unspecified type COMPREHENSIVE METABOLIC Lab Routine Myalgia Ordered: 03/20/2019 PANEL (CMP) Arthralgia, unspecified joint Fatigue, unspecified type C REACTIVE PROTEIN Lab Routine Myalgia Ordered: 03/20/2019 Arthralgia, unspecified joint Fatigue, unspecified type Scheduled Referrals Name Type Priority Associated Diagnoses Order S chedule AMB CONS/FOLLOW UP Outpatient Referral Routine Asymmetrical he aring Ordered: AUDIOLOGY loss of left ear 03/20/2019 documented as of this encounter Procedures Procedure Name Priority Date/Time Associated Diagnosis Comme nts LYME AB Routine 09/28/2019 12:10 EST Myalgia Results for this Arthralgia, procedure are i n unspecified join t the results Fatigue, unspecified section . type documented in this encounter Results LYME AB (09/28/2019 12:10 EST) Pathologist Sig nature Lyme Ab IgG NEGATIVE [facility] AB Lyme Ab NEGATIVE [facility] L AB Specimen Blood specimen (specimen) Narrative [facility] - 020 11:13 EST Does PT Have a Latex Allergy? NO Performing Organization Address City/State/ZIP Code Phon e Number [facility] [address] [place], [place] [id number] [place] [address] LAB documented in this encounter Visit Diagnoses Diagnosis Myalgia - Primary Mylagia and myositis, unspecified Arthralgia, unspecified joint Fatigue, unspecified type Asymmetrical hearing loss of left ear documented in this encounter Care Teams After School Program Director Relationship Specialty Start Date End Date Syed Leong MD PCP - General 04/08/09 0 documented as of this encounter
--- OUTSIDE RECORDS SUMMARY | 2022-02-27 01:25 | XMS_ITS | Encounter Summary ---
:1980 Author Organization [facility] Address [address] [place] [address] Care Team Providers Name Role Phone Syed Leong MD Primary Care Provider Unavailable Reason for Referral Laboratory Services (Routine) - Closed Specialty Diagnoses / Procedures Referred By Contact Refer red To Contact Diagnoses Syed Lopes MD Procedures COMPREHENSIVE METABOLIC PANEL (CMP) [address] [address] Referral ID Status Reason Start Date Expiration Date Visits Requ ested Visits Authorized [id number] Closed 08/10/2014 1 1 aboratory Services (Routine) - Closed Specialty Diagnoses / Procedures Referred By Contact Refer red To Contact Diagnoses Syed Lopes MD Procedures HEMAGRAM 130 [facility] [address] [address] Referral ID Status Reason Start Date Expiration Date Visits Requ ested Visits Authorized [id number] Closed 08/10/2014 1 1 Reason for Visit Reason Comments Dizziness having dizzy spells every da y,he does not have positional dizziiness. felt dizzy after he ate breakfast this am. Encounter Details Date Type Department Care Team Description 08/10/2014 Office Visit [facility] Syed Leong ss (Primary Dx) Family Medicine - [place] 130 [facility] [address] [address] Social History Tobacco Use Types Packs/Day Years Used Date Former Smoker Cigarettes 10 Quit: 03/25/20 09 Smokeless Tobacco: Never Used Alcohol Use Standard Drinks/Week Comments No 0 (1 standard drink = 0.6 oz pure alcoho l) occ Sex Assigned at Date Recorded Male 03/11/2020 9:13 EDT documented as of this encounter Last Filed Vital Signs Vital Sign Reading Time Taken Comments Blood Pressure 100/60 08/10/2014 1155 EST 118 60 stand ing Pulse 68 08/10/2014 1155 EST pulse 68 sta nding Temperature 36.6 ??C (97.9 ??F) 08/10/2014 1155 EST Respiratory Rate 20 08/10/2014 1155 EST Oxygen Saturation - - Inhaled Oxygen - - Concentration Weight 84.3 kg (185 lb 12.8 08/10/2014 1155 EST oz) Height - - Body Mass Index 28.25 04/04/2014 1116 EDT documented in this encounter Progress Notes Syed Leong MD - 08/10/2014 1207 EST Subjective: Patient ID: Flavio Hamm is an 33 y.o. male. Chief Complaint Patient presents with ??? Dizziness having dizzy spells every day,he does not have positional dizziiness. felt dizzy after he ate breakfast this am. HPI Getting dizzy in the morning. Tends to happen after eating. Last two weeks, happening every day. Canhappen all day, off and on. Has trouble focusing his eyes. Feels likes they are jumping around. Not like passing out or feeling the room moving. Some nausea, weakness at times and can be associated. No ear symptoms, or worsening tinnitus or hearing loss. The eyes are back and forth, trouble focusing and not diplopia. Not having headaches. He has h/o left ear tinnitus and hearing loss. Tried getting MRI but couldn't do it due to claustrophobia. Didn't try open MRI. (2011) Has episodes of feeling week and seems to get better if he eats something. Not hungry when it happens. He gets a bit frantic and even has some behavior change. Eating makes it better. Patient Active Problem List Diagnosis ??? Left-sided tinnitus ??? Hearing loss in left ear ??? Gastroesophageal reflux disease Past Medical History Diagnosis Date ??? Hearing [...] mg capsule Take 1 Cap by mouth daily. 90 Cap 3 No current facility-administered medications [...] occ ROS - See HPI Objective: BP 100/60 Pulse 68 Temp(Src) 36.6 ??C (97.9 ??F) (Oral) Resp 20 Wt 84.278 kg (185 lb 12.8 oz) BMI 28.26 kg/m2 Physical Exam HENT: Right Ear: Tympanic membrane and ear canal normal. Left Ear: Tympanic membrane and ear canal normal. Cardiovascular: Pulses: Carotid pulses are 2+ on the right side, and 2+ on the left side. Neurological: Normal EOM's; normal RRAM; normal finger to nose; normal station and gait; normal Romberg Assessment: 1-dizziness: It sounds that he might be having episodes of nystagmus causing her dizziness feeling. I don't know if this is vestibular in origin. It is concerning given his previous history of asymmetrical hearing loss and tinnitus in the left ear. I think he might end up needing an MRI. He doesn't really sound cerebellar. Not classic for M??ni??re's. Does not sound cardiac 2-he may be having some postprandial hypoglycemia or he may be just extra sensitive to low normal blood sugars. He was worried he may be diabetic but this is not sound diabetic. I don't know that the weakness is related to the dizziness situation at all. Plan 1-I. will talk with Dr. tomlinson about this 2-screening lab work Plan: Flavio was seen today for dizziness. Diagnoses and associated orders for this visit: Dizziness - Hemagram - Comprehensive Metabolic Panel (CMP) documented in this encounter Plan of Treatment Scheduled Orders Name Type Priority Associated Diagnoses Order S chedule HEMAGRAM Lab Routine Dizziness Ordered: 2013 COMPREHENSIVE METABOLIC PANEL Lab Routine Dizziness Ordered: 08/10/2014 (CMP) documented as of this encounter Visit Diagnoses Diagnosis Dizziness - Primary Dizziness and giddiness documented in this encounter Discontinued Medications Medication Sig Discontinue Reason Start Date End Date ondansetron (ZOFRAN, Take 4 mg by mouth Error 08/10/2014 HYDROCHLORIDE,) 4 mg every 4 hours as tablet needed for Nausea. oxyCODONE (ROXICODONE) 5 Take 5 mg by mouth Error 08/10/2014 mg immediate release every 4 hours. tablet clindamycin (CLEOCIN) 300 Take 1 Cap by mouth Error 06/18/20 14 08/10/2014 mg capsule 3 times daily. documented as of this encounter Care Teams Animation Producer Relationship Specialty Start Date End Date Syed Leong MD PCP - General 04/08/09 0 documented as of this encounter
--- OUTSIDE RECORDS SUMMARY | 2022-02-27 01:25 | XMS_ITS | Encounter Summary ---
:1980 Author Organization [facility] Address [address] [place] [address] Care Team Providers Name Role Phone Syed Leong MD Primary Care Provider Unavailable Reason for Visit Reason Comments Other Encounter Details Date Type Department Care Team Description 04/11/2016 Refill [facility] Family Medicine Syed D[address]o rd, MD [facility] [place] [place] [address] Social History Tobacco Use Types Packs/Day Years Used Date Former Smoker Cigarettes 10 Quit: 03/25/20 09 Smokeless Tobacco: Never Used Alcohol Use Standard Drinks/Week Comments No 0 (1 standard drink = 0.6 oz pure alcoho l) occ Sex Assigned at Date Recorded Male 03/11/2020 9:13 EDT documented as of this encounter Ordered Prescriptions Prescription Sig Dispensed Refills Start Date End Date omeprazole (PRILOSEC) 40 TAKE ONE CAPSULE BY 90 Cap 3 04/08/2017 mg capsule MOUTH EVERY DAY documented in this encounter Plan of Treatment Not on filedocumented as of this encounter Visit Diagnoses Not on filedocumented in this encounter Discontinued Medications Medication Sig Discontinue Reason Start Date End Date omeprazole (PRILOSEC) 40 mg Take 1 Cap by Reorder 04/23/2015 04/11/2016 capsuleIndications: mouth daily Gastroesophageal reflux disease, esophagitis presence not specified documented as of this encounter Care Teams Urology Physician Relationship Specialty Start Date End Date Syed Leong MD PCP - General 04/08/09 0 documented as of this encounter
--- OUTSIDE RECORDS SUMMARY | 2022-02-27 01:25 | XMS_ITS | Encounter Summary ---
:1980 Author Organization [facility] Address [address] [place] [address] Care Team Providers Name Role Phone Syed Leong MD Primary Care Provider Unavailable Reason for Visit Reason Onset Date Comments Epididymitis 11/24/2017 Encounter Details Date Type Department Care Team Description 11/24/2017 Telephone [facility] Family Elmer Winters her Tran, Epididymitis Medicine - Ye [place] [address] [place] [address] [address] [place], [place] [address] [place] [address] [phone] Social History Tobacco Use Types Packs/Day Years [...] 1 Tab by mouth 14 Tab 0 12/01/2017 100 mg tabletIndications: 2 times daily for 7 Epididymitis days. documented in this encounter Miscellaneous Notes Telephone Encounter - Song Winters - 11/24/2017 1930 EDT Pt called, recent dx after ER visit at [facility] ([facility]) 5 days ago. Pt good historian relates scrotal pain and eval/exam there including US consistent with epididymitis. Pt started on levaquin but stopped after 3 doses due to tendenopathy in leg. Symptoms were improving then , but in the 2 days off this, now beginning to return Plan: 1. Will send in a rx for Doxycycline to his pharmacy-this to complete tx and should provide adequatecoverage and be better tolerated, Side effects discussed ( he requested this sent to [facility]) 2 carefully instructed to follow up if not improving 3. This was probably incidental to recent hernia surgery (but may need to consider neuropathy with referred pain if this persists) documented in this encounter Plan of Treatment Not on filedocumented as of this encounter Visit Diagnoses Diagnosis Epididymitis - Primary Orchitis and epididymitis, unspecified documented in this encounter Care Teams Platform Material Handling Supervisor Relationship Specialty Start Date End Date Syed Leong MD PCP - General 04/08/09 0 documented as of this encounter
--- OUTSIDE RECORDS SUMMARY | 2022-02-27 01:25 | XMS_ITS | Encounter Summary ---
:1980 Author Organization [facility] Address [address] [place] [address] Care Team Providers Name Role Phone Syed Leong MD Primary Care Provider Unavailable Reason for Visit Reason Onset Date Comments Results 08/11/2014 Encounter Details Date Type Department Care Team Description 08/11/2014 Telephone [facility] Syed Leong MD Results Medicine - [address] [address] Social History Tobacco Use Types Packs/Day Years Used Date Former Smoker Cigarettes 10 Quit: 03/25/20 09 Smokeless Tobacco: Never Used Alcohol Use Standard Drinks/Week Comments No 0 (1 standard drink = 0.6 oz pure alcoho l) occ Sex Assigned at Date Recorded Male 03/11/2020 9:13 EDT documented as of this encounter Miscellaneous Notes Telephone Encounter - Fe Cai RN - 08/13/2014 1310 EST Patient called back and given information. elephone Encounter - Fe Cai RN - 08/13/2014 0847 EST Called patient and left message to call back with his . elephone Encounter - Syed Leong MD - 08/11/2014 1136 EST Please notify the patient that his labs were normal. His fasting glucose was a very normal 83 (not too low or too high). documented in this encounter Plan of Treatment Not on filedocumented as of this encounter Visit Diagnoses Not on filedocumented in this encounter Care Teams Director Operating Relationship Specialty Start Date End Date Syed Leong MD PCP - General 04/08/09 0 documented as of this encounter
--- OUTSIDE RECORDS SUMMARY | 2022-02-27 01:25 | XMS_ITS | Encounter Summary ---
:1980 Author Organization [facility] Address [address] [place] [address] Care Team Providers Name Role Phone Syed Leong MD Primary Care Provider Unavailable Reason for Visit Reason Onset Date Comments Emesis 05/31/2014 Encounter Details Date Type Department Care Team Description 05/31/2014 Telephone [facility] Family [facility] Simone gramajo MD Emesis Medicine - [place] [address] [facility] [address] [place] [address] [place], [place] [address] [phone] Social History Tobacco Use Types Packs/Day Years Used Date Former Smoker Cigarettes 10 Quit: 03/25/20 09 Smokeless Tobacco: Never Used Alcohol Use Standard Drinks/Week Comments No 0 (1 standard drink = 0.6 oz pure alcoho l) occ Sex Assigned at Date Recorded Male 03/11/2020 9:13 EDT documented as of this encounter Miscellaneous Notes Telephone Encounter - Simone Rodriguez MD - 05/31/2014 2783 EDT Flavio and his called the pager this evening because of concern of his abdominal pain and vomiting. He had an appendectomy 4d ago (05/27) and has been feeling progressively worse since. He saw Dr. Shoemaker earlier today but since then he has had writhing abdominal pain and cramping after every meal. He has had chills, no fever. He has had loose stools the past 3d but no BMs today. He states his surgery site and sutures appear well and are not concerning to him. I encouraged the pt to call Dr. Shoemaker or whoever is covering for him. My concern is intraabdominal infection given his progressively worse symptoms and his chills, which is the window he is in for post-op infection. If they are unsuccessful with speaking with surgery or who is contact center specialist, it would be prudent to be evaluated in the ED. I advised I am available for further assistance if necessary, and they will call if any other questions arise. documented in this encounter Plan of Treatment Not on filedocumented as of this encounter Visit Diagnoses Not on filedocumented in this encounter Care Teams Clinical Application Manager Relationship Specialty Start Date End Date Syed Leong MD PCP - General 04/08/09 0 documented as of this encounter
--- OUTSIDE RECORDS SUMMARY | 2022-02-27 01:25 | XMS_ITS | Encounter Summary ---
:1980 Author Organization [facility] Address [address] [place] [address] Care Team Providers Name Role Phone Syed Leong MD Primary Care Provider Unavailable Reason for Visit Reason Onset Date Comments Follow-up 11/18/2017 Encounter Details Date Type Department Care Team Description 11/18/2017 Telephone [facility] General Abdiel Edwards, Follow-up Surgery - Ye MORROW [address] [facility] [address] [place] [address] [place] [phone] (Wo rk) Social History Tobacco Use Types Packs/Day Years Used Date Former Smoker Cigarettes 10 Quit: 03/25/20 09 Smokeless Tobacco: Never Used Alcohol Use Standard Drinks/Week Comments No 0 (1 standard drink = 0.6 oz pure alcoho l) occ Sex Assigned at Date Recorded Male 03/11/2020 9:13 EDT documented as of this encounter Miscellaneous Notes Telephone Encounter - Sami Edwards MD - 11/18/2017 0912 EST Pt a lot more sore today, tolerable. Pain meds are helping. Continue Ice. May need more pain meds and will check in tomorrow. documented in this encounter Plan of Treatment Not on filedocumented as of this encounter Visit Diagnoses Not on filedocumented in this encounter Care Teams Tire Curer Relationship Specialty Start Date End Date Syed Leong MD PCP - General 04/08/09 0 documented as of this encounter
--- OUTSIDE RECORDS SUMMARY | 2022-02-27 01:25 | XMS_ITS | Encounter Summary ---
:1980 Author Organization [facility] Address [address] [place] [address] Care Team Providers Name Role Phone Syed Leong MD Primary Care Provider Unavailable Reason for Referral Radiology Services (Routine) - Closed Specialty Diagnoses / Procedures Referred By Contact Refer red To Contact Diagnoses Hearing loss in left ear Left-sided tinnitus Nystagmus Dizziness Syed Leong MD Procedures MR HEAD [address] [facility] [address] [place] [id number] Referral ID Status Reason Start Date Expiration Date Visits Requ ested Visits Authorized [id number] Closed 08/13/2014 1 1 Reason for Visit Reason Onset Date Comments Results 08/13/2014 labs Dizziness 08/13/2014 Encounter Details Date Type Department Care Team Description 08/13/2014 Telephone [facility] Syed Leong, Resu lts (labs); Family Medicine - [place] [address] [facility] [address] [place] [address] Social History Tobacco Use Types Packs/Day Years Used Date Former Smoker Cigarettes 10 Quit: 03/25/20 09 Smokeless Tobacco: Never Used Alcohol Use Standard Drinks/Week Comments No 0 (1 standard drink = 0.6 oz pure alcoho l) occ Sex Assigned at Date Recorded Male 03/11/2020 9:13 EDT documented as of this encounter Miscellaneous Notes Telephone Encounter - Syed Leong MD - 08/13/2014 7428 EST Labs normal. Spoke with Dr Melgoza who agreed next step is the MRI, which was tried unsuccessfully before. Will order open MRI. documented in this encounter Plan of Treatment Scheduled Orders Name Type Priority Associated Diagnoses Order S chedule MR HEAD Imaging Routine Hearing loss in left ear Ordered: 08/13/2014 Left-sided tinni tus Nystagmus Dizziness documented as of this encounter Visit Diagnoses Diagnosis Left-sided tinnitus - Primary Unspecified tinnitus Hearing loss in left ear Unspecified hearing loss Nystagmus Nystagmus, unspecified Dizziness Dizziness and giddiness documented in this encounter Care Teams [facility] Care Center Assistant Director Relationship Specialty Start Date End Date Syed Leong MD PCP - General 04/08/09 0 documented as of this encounter
--- OUTSIDE RECORDS SUMMARY | 2022-02-27 01:25 | XMS_ITS | Encounter Summary ---
:1980 Author Organization [facility] Address [address] [place] [address] Care Team Providers Name Role Phone Syed Leong MD Primary Care Provider Unavailable Reason for Referral Consult, Test and Treat (Routine/Next Available) - Closed Specialty Diagnoses / Procedures Referred By Contact Refer red To Contact Diagnoses Ankle pain, right Shoulder pain, right Knee pain, left anterior Tyler Berman PA-C [address] [facility] [address] [place] [address] Referral ID Status Reason Start Date Expiration Date Visits V isits Requested Authorized [id number] Closed Specialty 11/12/2014 1 1 Services Required Question Answer Reason for Request: injury to posterior right an kle 4 weeks ago; tendonitis right shoulder; anterior left knee pain Reason for Visit Reason Comments Pain achilles tendon,shoulder and lt knee bothering him for about a week,thinks he injured self playing sports. Encounter Details Date Type Department Care Team Description 11/12/2014 Office Visit [facility] Tyler Berman Ankle pain, right (Primary Dx); Family Medicine - [place] Shoulder p ain, right; [place] Knee pain, left anterior [address] [facility] [address] [place] [address] Social History Tobacco Use Types Packs/Day Years Used Date Former Smoker Cigarettes 10 Quit: 03/25/20 09 Smokeless Tobacco: Never Used Alcohol Use Standard Drinks/Week Comments No 0 (1 standard drink = 0.6 oz pure alcoho l) occ Sex Assigned at Date Recorded Male 03/11/2020 9:13 EDT documented as of this encounter Last Filed Vital Signs Vital Sign Reading Time Taken Comments Blood Pressure 138/88 11/12/2014926 EST Pulse 62 11/12/2014926 EST Temperature - - Respiratory Rate 20 11/12/2014926 EST Oxygen Saturation - - Inhaled Oxygen Concentration - - Weight - - Height - - Body Mass Index - - documented in this encounter Progress Notes Tyler Berman PA-C - 11/12/2014 0959 EST Mr Hamm comes in today with several concerns. 1. He has been having right shoulder pain for the past 3 months. He did start a high intensity training program about 10 days ago called [employer] that has continued to exacerbate the shoulder pain, cannot recall any initial injury. 2. Periodic anterior left knee pain, notes some achiness and swelling, again part of the high intensity training that he has been doing. 3. Injured the posterior aspect of his right ankle about 4 weeks ago playing soccer. His foot was upoff the ground and another player kicked him directly in the bottom of the foot causing intense painat the time. He did try to continue playing, but was unable to due to the injury. He notes now that any time he flexes the foot and the ankle, he has pain in the posterior aspect of the ankle. There has not been any swelling in the Achilles tendon and no tenderness to the tendon. OBJECTIVE: Blood pressure 138/88, pulse is 62. He appears well. Exam of the shoulders, he has good range of motion of each shoulder, there is tenderness along the lateral aspect of the right shoulder and down the deltoid. Passive range of motion causes increased tenderness in this area. He has decreased strength in the right shoulder to abduction against resistance approximately 4/5. Exam of the leftknee, full range of motion, no joint tenderness, no laxity, no significant area of pain. It is not swollen at this time. Exam of the right ankle, no swelling. Achilles tendon is normal, nontender, no erythema. There is discomfort beneath the Achilles tendon near the bone, with deep palpation and extension of the foot discomfort is evident. ASSESSMENT: A 33-year-old male with several joint problems, rotator cuff tendinitis of the right shoulder, anterior left knee pain and undetermined injury to the posterior aspect of the right ankle. PLAN: The patient is being referred to physical therapy for treatment and evaluation of each. May need orthopaedic referral for further evaluation of the right ankle injury. documented in this encounter Plan of Treatment Scheduled Referrals Name Type Priority Associated Diagnoses Order S chedule AMB CONS/FOLLOW UP Outpatient Referral Routine Ankle sultana n, right Ordered: PHYSICAL THERAPY Shoulder pain, right 11/12/2014 Knee pain, left anterior documented as of this encounter Visit Diagnoses Diagnosis Ankle pain, right - Primary Pain in joint, ankle and foot Shoulder pain, right Pain in joint, shoulder region Knee pain, left anterior Pain in joint, lower leg documented in this encounter Discontinued Medications Medication Sig Discontinue Reason Start Date End Date LORazepam (ATIVAN) 1 mg 1/2 to one tab 30-60 Error 4 11/12/2014 tablet minutes before MRIjscript:void(0). documented as of this encounter Care Teams Engineer Specialist Relationship Specialty Start Date End Date Syed Leong MD PCP - General 04/08/09 0 documented as of this encounter
--- OUTSIDE RECORDS SUMMARY | 2022-02-27 01:25 | XMS_ITS | Encounter Summary ---
:1980 Author Organization [facility] Address [address] [place] [address] Care Team Providers Name Role Phone Syed Loeng MD Primary Care Provider Unavailable Reason for Visit Reason Comments URI Pt here today with sx's for 2+ weeks; congested, body aches-R side neck pain, sore throat- no known fevers Encounter Details Date Type Department Care Team Description 04/02/2015 Office Visit [facility] Tyler Berman Acute sinusitis, recurrence not specified, unspecified location (Primary Dx); Family Medicine - [place], [place] [address] [address] Social History Tobacco Use Types Packs/Day Years Used Date Former Smoker Cigarettes 10 Quit: 03/25/20 09 Smokeless Tobacco: Never Used Alcohol Use Standard Drinks/Week Comments No 0 (1 standard drink = 0.6 oz pure alcoho l) occ Sex Assigned at Date Recorded Male 03/11/2020 9:13 EDT documented as of this encounter Last Filed Vital Signs Vital Sign Reading Time Taken Comments Blood Pressure 132/86 04/02/2015 1511 EDT Pulse 96 04/02/2015 1511 EDT Temperature 36.5 ??C (97.7 ??F) 04/02/2015 1511 EDT Respiratory Rate - - Oxygen Saturation - - Inhaled Oxygen Concentration - - Weight 78 kg (172 lb) 04/02/2015 1511 EDT Height - - Body Mass Index 26.15 04/04/2014 1116 EDT documented in this encounter Ordered Prescriptions Prescription Sig Dispensed Refills Start Date End Date amoxicillin-clavulanate Take 1 Tab by mouth 20 Tab 0 04/12/2015 (AUGMENTIN) 875-125 mg per 2 times daily for tabletIndications: Acute 10 days Take with sinusitis, recurrence not food. specified, unspecified location documented in this encounter Progress Notes Tyler Berman PA-C - 04/02/2015 5192 EDT Subjective: Patient ID: Flavio Hamm is an 34 y.o. male. Chief Complaint Patient presents with ??? URI Pt here today with sx's for 2+ weeks; congested, body aches-R side neck pain, sore throat- no knownfevers URI This is a new problem. Episode onset: 2 weeks ago. The problem has been gradually worsening. There has been no fever. Associated symptoms include congestion, coughing, rhinorrhea, a sore throat and swollen glands. Pertinent negatives include no chest pain, ear pain or sinus pain. He has tried nothing f or the symptoms. Patient Active Problem List Diagnosis ??? Left-sided [...] Used ??? Alcohol Use: No Comment: occ Review of Systems Constitutional: Negative for fever and chills. HENT: Positive for congestion, rhinorrhea and sore throat. Negative for ear pain. Respiratory: Positive for cough. Negative for sputum production. Cardiovascular: Negative for chest pain. - See HPI Objective: BP 132/86 mmHg Pulse 96 Temp(Src) 36.5 ??C (97.7 ??F) (Tympanic) Wt 78.019 kg (172 lb) Physical Exam Constitutional: He appears well-developed and well-nourished. No distress. HENT: Right Ear: Tympanic membrane normal. Left Ear: Tympanic membrane normal. Moderate nasal congestion; posterior pharyngeal erythema. Eyes: Conjunctivae are normal. Pupils are equal, round, and reactive to light. Neck: Neck supple. Tender adenopathy especially on the right side. Cardiovascular: Normal heart sounds. Pulmonary/Chest: Breath sounds normal. Lymphadenopathy: He has cervical adenopathy. Assessment: Acute sinusitis Plan: Flavio was seen today for uri. Diagnoses and associated orders for this visit: Acute sinusitis, recurrence not specified, unspecified location - amoxicillin-clavulanate (AUGMENTIN) 875-125 mg per tablet; Take 1 Tab by mouth 2 times daily for 10 days Take with food. Sore throat continue increased fluids and nasal steam. Use Advil with each meal for as needed for relief of discomfort. Antibiotics as prescribed. Follow-up with persistent or worsening symptoms. documented in this encounter Plan of Treatment Not on filedocumented as of this encounter Visit Diagnoses Diagnosis Acute sinusitis, recurrence not specifie d, unspecified location - Primary Sore throat Acute pharyngitis documented in this encounter Discontinued Medications Medication Sig Discontinue Reason Start Date End Date amoxicillin-clavulanate Take 1 Tab by mouth Reorder 08/18/2013 04/02/2015 (AUGMENTIN) 875-125 mg 2 times daily for per tabletIndications: 10 days. Sinusitis documented as of this encounter Care Teams Dialysis Clinical Manager Relationship Specialty Start Date End Date Syed Leong MD PCP - General 04/08/09 0 documented as of this encounter
--- OUTSIDE RECORDS SUMMARY | 2022-02-27 01:25 | XMS_ITS | Encounter Summary ---
:1980 Author Organization [facility] Address [address] [place] [address] Care Team Providers Name Role Phone Syed Leong MD Primary Care Provider Unavailable Reason for Visit (Routine) - Receiving Office to Obtain Authorization Specialty Diagnoses / Procedures Referred By Contact Refer red To Contact Procedures Unknown, Provider, MR OUTSIDE IMAGES NEURO Phone: Referral ID Status Reason Start Expiration Visits Visits Date Date Requested Authorized [id number] Receiving Office 11/03/2019 1 1 to Obtain Authorization Encounter Details Date Type Department Care Team Description 11/02/2019 Hospital Encounter [facility] Radiology - [place] [address] [place] [address] Social History Tobacco Use Types Packs/Day Years Used Date Former Smoker Cigarettes 10 Quit: 03/25/20 09 Smokeless Tobacco: Never Used Alcohol Use Standard Drinks/Week Comments No 0 (1 standard drink = 0.6 oz pure alcoho l) occ Sex Assigned at Date Recorded Male 03/11/2020 9:13 EDT documented as of this encounter Medications at Time of Discharge Medication Sig Dispensed Refills Start Date End Date acetaminophen (TYLENOL) Take 650 mg by 0 325 mg tablet mouth every 4 hours as needed for Pain. ibuprofen (MOTRIN) 600 mg Take 600 mg by 0 tablet mouth every 6 hours as needed for Pain. omeprazole (PRILOSEC) 40 TAKE 1 CAPSULE BY 90 Cap 3 08/01/201904/02/2020 mg capsule MOUTH EVERY DAY documented as of this encounter Discharge Disposition Disposition Code Departure Means Destination Home or Self Care documented in this encounter Plan of Treatment Not on filedocumented as of this encounter Procedures Procedure Name Priority Date/Time Associated Diagnosis Comme nts MR OUTSIDE IMAGES Routine 11/03/2019 16:11 Result s for this NEURO EST procedure are i n the results section. documented in this encounter Results MR OUTSIDE IMAGES NEURO (11/03/2019 16:11 EST) Specimen Narrative JENNIE - 11/03/2019 16:11 EST This is a non-reportable exam. Performing Organization Address City/State/[facility] Code Phon e Number JENNIE documented in this encounter Visit Diagnoses Not on filedocumented in this encounter Care Teams Environmental Services Manager Relationship Specialty Start Date End Date Syed Leong MD PCP - General 04/08/09 0 documented as of this encounter
--- OUTSIDE RECORDS SUMMARY | 2022-02-27 01:25 | XMS_ITS | Encounter Summary ---
:1980 Author Organization [facility] Address [address] [place] [address] Care Team Providers Name Role Phone Syed Leong MD Primary Care Provider Unavailable Reason for Visit Reason Comments Medication Management Pt wants to discuss tapering off the celexa. Encounter Details Date Type Department Care Team Description 01/12/2017 Office Visit [facility] Beverly Brothers NP Anxiety (Primary Dx) Family Medicine - [address] [facility] [address] [place] [address] [address] [id number] [place] [address] Social History Tobacco Use Types [...] Sign Reading Time Taken Comments Blood Pressure 126/90 01/12/2017 0931 EDT Pulse 60 01/12/2017 0931 EDT Temperature 36.4 ??C (97.5 ??F) 01/12/2017 0931 EDT Respiratory Rate 16 01/12/2017 0931 EDT Oxygen Saturation 99% 01/12/2017 0931 EDT Inhaled Oxygen Concentration - - Weight 80.6 kg (177 lb 12.8 oz) 01/12/2017 0931 EDT Height 172.7 cm (5' 8) 01/12/2017 0931 EDT Body Mass Index 27.03 01/12/2017 0931 EDT documented in this encounter Progress Notes Beverly Brothers, SENIOR DESIGNER/ART DIRECTOR - 01/12/2017 0945 EDT Subjective: Patient ID: Flavio Hamm is an 36 y.o. male. Chief Complaint Patient presents with ??? Medication Management Pt wants to discuss tapering off the celexa. HPI 36-year-old male with history of anxiety here to follow-up on anxiety. He's been taking citalopram 10 mg daily with good effect. He reports his 's health has improved. She has been unwell since April secondary to migraines associated with food allergies. Now that his is better, he feels his family is functioning well. He continues to have stress related to family dynamics and pentecostalism social dynamics, but he believes he can deal with this. He has tried to stop Celexa in both August and December, but when he stopped his irritability returned quickly and within days he started to feel jittery and experienced a shocklike sensation throughout my body. He would like to stop citalopram and is wondering how to do this. Patient Active Problem List Diagnosis ??? [...] 4 hours as needed for Pain. ??? citalopram (CELEXA) 20 mg tablet Take 1 Tab by mouth daily. 90 Tab 1 ??? ibuprofen (MOTRIN) 600 mg [...] Used ??? Alcohol use No Comment: occ ROS - See HPI Objective: BP 126/90 (BP Cuff Location: Right arm, Patient Position: Sitting, BP Cuff Sizes: Adult, regular) Pulse 60 Temp 36.4 ??C (97.5 ??F) (Tympanic) Resp 16 Ht 172.7 cm (68) Wt 80.6 kg (177 lb 12.8 oz) SpO2 99% BMI 27.03 kg/m2 Physical Exam Constitutional: He is oriented to person, place, and time. Vital signs are normal. He appears well-developed and well-nourished. No distress. Appears well groomed, pleasant, no distress HENT: Mouth/Throat: Mucous membranes are moist. Pulmonary/Chest: Effort normal. Neurological: He is alert and oriented to person, place, and time. Skin: Skin is warm and dry. Psychiatric: He has a normal mood and affect. His behavior is normal. Speech is clear, appears euthymic, normal affect Nursing note and vitals reviewed. Assessment: 36-year-old male with history of anxiety treated with citalopram 10 mg for approximately 6 months. Anxiety is in remission. He describes withdrawal symptoms after stopping citalopram abruptly, so we will try a slow wean. Plan: Flavio was seen today for medication management. Diagnoses and all orders for this visit: Anxiety - stable and ready to wean off citalopram. Decrease to 10 mg every other day for the next 2-3 weeks, then stop completely. Return if needed. Patient agrees with plan. documented in this encounter Plan of Treatment Not on filedocumented as of this encounter Visit Diagnoses Diagnosis Anxiety - Primary Anxiety state, unspecified documented in this encounter Discontinued Medications Medication Sig Discontinue Reason Start Date End Date diclofenac (VOLTAREN) 50 Take 1 Tab by mouth 6 01/12/2017 mg EC tabletIndications: 2 times daily. TMJ syndrome documented as of this encounter Care Teams Scrap Materials Buyer Relationship Specialty Start Date End Date Syed Leong MD PCP - General 04/08/09 0 documented as of this encounter
--- OUTSIDE RECORDS SUMMARY | 2022-02-27 01:25 | XMS_ITS | Encounter Summary ---
:1980 Author Organization [facility] Address [address] [place] [address] Care Team Providers Name Role Phone Syed Leong MD Primary Care Provider Unavailable Reason for Visit Reason Comments Hearing Loss Tinnitus Referral (Routine/Next Available) - Specialty Report Received Specialty Diagnoses / Procedures Referred By Contact Refer red To Contact Otolaryngology Diagnoses Asymmetrical hearing loss of left ear Syed Leong MD Kelley, Kairn S, AuD [address] [facility] [address] [place] [address] [address] [place] [address] Phone: Fax: Referral ID Status Reason Start Expiration Visits Visits Date Date Requested Authorized [id number] Specialty Specialty 03/20/2019 1 1 Report Services Received Required Encounter Details Date Type Department Care Team Description 04/21/[address] [facility] Lico Gregg, 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 [place], Lico S - 04/21/2019 1100 EDT Subjective: Flavio Hamm, 38 y.o. old male, was seen on 04/21/2019 for hearing evaluation at the request of Syed Leong MD. Dr. Leong's note from 03/20/19 visit with the patient noted: In 2010 he was diagnosed with an asymmetrical hearing loss in the left ear of about 25 dB. He was scheduled for an MRI but despite it being an open MRI and premedication he was unable to do this. He said his tinnitus is getting louder and his hearing loss more profound. Mr. Hamm confirmed this report and noted both his hearing and his tinnitus seem to be worse. Objective: Signals were presented via IP30 insert ear phone or bone oscillator placed on the left mastoid. All thresholds in table in dB HL. AC= Air Conduction, BC= Bone Conduction Frequency 250 272 194 4389 1500 2000 3000 4000 6000 8000 UnmaskedBC 0 5 25 30 40 Right AC 15 5 10 15 20 30 30 15 10 Right BC Left AC 25 20 40 45 40 65 65 65 45 Left BC 15 25 35 80 Mr. Hamm???s speech bilingual receptionist threshold (SRT) was 10 dB HL in the right ear, 25 dB HL in the left ear. This is consistent with his thresholds for tones. Mr. Hamm???s word recognition ability was 100% in the right ear and 100% in the left ear when tested at a loud level (80 dB HL with 50 dB HL masking noise presented to the opposite ear) using the NU-6. Tympanometry was within normal limits in both ears (YtmR= 0.6 ml @ -15 daPa; YtmL= 0.7 ml @ 5 daPa). Assessment: 's hearing sensitivity for tones presented to the left ear measures 5- 20 dB HL worse than in 2011. The conductive loss is more pronounced at 1000 Hz than it was, the high frequency loss seems to be sensorineural. His speech bilingual receptionist threshold is unchanged. Thresholds for tones presented to the right ear are similar to 2001, but up to 15 dB HL worse at 4000 Hz. Plan: will discuss these results with Dr. Leong to determine what the best next step will be.A copy of the audiogram and good communications tips sheet was provided. Note: the documentation from this visit was initially misplaced. Fam and I spoke on the phone on 05/03/19 and confirmed the plan. He expects to hear from Dr. Leong's office to schedule an appointmentto discuss. verbally indicated understanding of the information provided at today???s visit. documented in this encounter Plan of Treatment Not on filedocumented as of this encounter Procedures Procedure Name Priority Date/Time Associated Diagnosis Comme nts PROCEDURE REPORTS - 05/05/2019 13:19 Resu lts for this SCANNED EDT procedure are i n the results section. documented in this encounter Results PROCEDURE REPORTS - SCANNED (05/05/2019 13:19 EDT) Specimen Narrative This result has an attachment that is no t available. 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
--- OUTSIDE RECORDS SUMMARY | 2022-02-27 01:25 | XMS_ITS | Encounter Summary ---
:1980 Author Organization [facility] Address [address] [place] [address] Care Team Providers Name Role Phone Syed Leong MD Primary Care Provider Unavailable Reason for Referral Laboratory Services (Routine) - New Request Specialty Diagnoses / Procedures Referred By Contact Refer red To Contact Diagnoses Other fatigue Syed Leong MD Procedures MONO-TEST [address] [facility] [address] [place] [address] Referral ID Status Reason Start Date Expiration Date Visits V isits Requested Authorized [id number] New Request 04/13/2019 1 1 aboratory Services (Routine) - New Request Specialty Diagnoses / Procedures Referred By Contact Refer red To Contact Diagnoses Other fatigue Syed Leong MD Procedures COMPLETE BLOOD COUNT AND DIFFERENTIAL [address] [facility] [address] [place] [address] Referral ID Status Reason Start Date Expiration Date Visits V isits Requested Authorized [id number] New Request 04/13/2019 1 1 aboratory Services (Routine/Next Available) - New Request Specialty Diagnoses / Procedures Referred By Contact Refer red To Contact Diagnoses Other fatigue Myalgia Syed Leong MD Procedures ANTI NUCLEAR AB (FABIOLA), IFA [address] [facility] [address] [place] [address] Referral ID Status Reason Start Date Expiration Date Visits V isits Requested Authorized [id number] New Request 04/13/2019 1 1 aboratory Services (Routine) - New Request Specialty Diagnoses / Procedures Referred By Contact Refer red To Contact Diagnoses Other fatigue Nonintractable headache, unspecified chronicity pattern, unspecified headache type Syed Pierre MD Procedures C REACTIVE PROTEIN [address] [address] Referral ID Status Reason Start Date Expiration Date Visits V isits Requested Authorized [id number] New Request 04/13/2019 1 1 aboratory Services (Routine) - New Request Specialty Diagnoses / Procedures Referred By Contact Refer red To Contact Diagnoses Shayleealgia Syed Leong MD Procedures CK [address] [place] [address] Referral ID Status Reason Start Date Expiration Date Visits V isits Requested Authorized [id number] New Request 04/13/2019 1 1 aboratory Services (Routine) - New Request Specialty Diagnoses / Procedures Referred By Contact Refer red To Contact Diagnoses Other fatigue Nonintractable headache, unspecified chronicity pattern, unspecified headache type Syed Leong MD Procedures WEST NILE VIRUS (WNV) AB, IGG, IGM, SERUM [address] [place] [address] Referral ID Status Reason Start Date Expiration Date Visits V isits Requested Authorized [id number] New Request 04/13/2019 1 1 Reason for Visit Reason Onset Date Comments Results 04/13/2019 Encounter Details Date Type Department Care Team Description 04/13/2019 Telephone [facility] Syed Leong MD Results Medicine - [place] [address] [place] [address] Social History Tobacco Use Types Packs/Day Years Used Date Former Smoker Cigarettes 10 Quit: 03/25/20 09 Smokeless Tobacco: Never Used Alcohol Use Standard Drinks/Week Comments No 0 (1 standard drink = 0.6 oz pure alcoho l) occ Sex Assigned at Date Recorded Male 03/11/2020 9:13 EDT documented as of this encounter Miscellaneous Notes Telephone Encounter - Syed Leong MD - 04/13/2019 1817 EDT Called to let the patient know his chest x-ray was unrevealing. Blood test so far have been normal. He is still feeling daytime somnolence, chilled feeling, headaches, myalgias and arthralgias. I am going to do some other lab tests and consider referral if not helpful. documented in this encounter Plan of Treatment Scheduled Orders Name Type Priority Associated Diagnoses Order S chedule WEST NILE VIRUS (WNV) AB, Lab Routine Other fatigue Ordered: 04/13/2019 IGG, IGM, SERUM Nonintractable headache, unspecified chronicity pattern, unspecified headache type CK Lab Routine Myalgia Ordered: 2018 C REACTIVE PROTEIN Lab Routine Other fatigue Ordered: 04/13/2019 Nonintractable headache, unspecified chronicity pattern, unspecified headache type Myalgia ANTI NUCLEAR AB (FABIOLA), IFA Lab Routine Other fatigue Ordered: 04/13/2019 Myalgia COMPLETE BLOOD COUNT AND Lab Routine Other fatigue Or dered: 04/13/2019 DIFFERENTIAL MONO-TEST Lab Routine Other fatigue Ordered: 04/13 documented as of this encounter Visit Diagnoses Diagnosis Other fatigue - Primary Nonintractable headache, unspecified chr onicity pattern, unspecified headache type Myalgia Mylagia and myositis, unspecified documented in this encounter Care Teams Career Services Manager Relationship Specialty Start Date End Date Syed Leong MD PCP - General 04/08/09 0 documented as of this encounter
--- OUTSIDE RECORDS SUMMARY | 2022-02-27 01:25 | XMS_ITS | Encounter Summary ---
:1980 Author Organization [facility] Address [address] [place] [address] Care Team Providers Name Role Phone Syed Leong MD Primary Care Provider Unavailable Reason for Visit Reason Onset Date Comments Coordination Of Care 10/09/2019 Encounter Details Date Type Department Care Team Description 10/09/2019 Telephone [facility] Syed Leong, Coordination Of Care Medicine - [place] [address] [place] [address] [address] [place] [address] Social History Tobacco Use Types Packs/Day Years Used Date Former Smoker Cigarettes 10 Quit: 03/25/20 09 Smokeless Tobacco: Never Used Alcohol Use Standard Drinks/Week Comments No 0 (1 standard drink = 0.6 oz pure alcoho l) occ Sex Assigned at Date Recorded Male 03/11/2020 9:13 EDT documented as of this encounter Miscellaneous Notes Telephone Encounter - Beverly Greco - 10/11/2019 1629 EST Found MRI form had been completed, faxed MRI to radiology for CPT. If patient calls please advise of below notes. Beverly Greco elephone Encounter - Beverly Greco - 10/11/[address] Leong, patient can be seen at [facility] MRI because he is having anesthesia. I called [facility] and advised that the patient would be coming to [facility]. Called patient and left a msg to call back. We need to fill out the [facility] MRI screening form and thenwe can send for CPT and prior auth. Beverly Greco elephone Encounter - Syed Leong MD - 10/10/2019 1649 EST It was ordered for [facility] with anesth involvement. Unbeknownst to me it was changed to other site. It can be done here at [facility]. Please confirm with radiology and let patient/ know. Cancel other site. elephone Encounter - Iesha Borden RN - 10/10/2019 1622 EST I imagine it would need to be an open MRI for Anesthesia to have access to the patient. Routing to Syed Leong MD to advise. elephone Encounter - Beverly Greco - 10/10/2019 1602 EST Patient's , Joanie calling wondering if since he will be sedated with anesthesia if he could do the closed MRI here at [facility] or if because he has to have anesthesia it has to be the open MRI? Patient trying to avoid the travel if possible. If not possible they are fine to go to [place]. Please Advise Telephone Encounter - Bere Fontana RN - 10/09/2019 1349 EST Spoke with Joanie. She is now aware of the plan, and will check in with Radiology about this when they call to schedule MRI. Provided Radiology number in the event they don't call to schedule in the next day or so. elephone Encounter - Syed Leong MD - 10/09/2019 1338 EST I have asked that anesthesia be involved to sedate him. Radiology will be arranging this. Please have them make sure when they call him for an appointment that they are doing so. elephone Encounter - Beverly Greco - 10/09/2019 1040 EST Called Patient to fill out the MRI form. Spoke to spouse. Per Joanie he has a very hard time with MRI's. The last time he had an open MRI, he was sedated but still had an awful time freaked out. They were wondering if he could get something to completely knock him out? Beverly Greco documented in this encounter Plan of Treatment Not on filedocumented as of this encounter Visit Diagnoses Not on filedocumented in this encounter Care Teams Manager Ems Relationship Specialty Start Date End Date Syed Leong MD PCP - General 04/08/09 0 documented as of this encounter
--- OUTSIDE RECORDS SUMMARY | 2022-02-27 01:25 | XMS_ITS | Encounter Summary ---
:1980 Author Organization [facility] Address [address] [place] [address] Care Team Providers Name Role Phone Syed Leong MD Primary Care Provider Unavailable Reason for Referral Consult (Routine) - Specialty Report Received Specialty Diagnoses / Procedures Referred By Contact Refer red To Contact General Surgery Diagnoses Right inguinal hernia Simone Rodriguez MD [address] [place] [phone] [place] [address] Fax: Referral ID Status Reason Start Expiration Visits Visits Date Date Requested Authorized [id number] Specialty Specialty 10/25/2017 1 1 Report Services Received Required Question Answer Reason for Request: right inguinal hernia, small er on L Reason for Visit Reason Comments Possible Hernia (R) sided hernia, possible s maller hernia on (L) side. Mentioned by Dr. Leong years ago. Encounter Details Date Type Department Care Team Description 10/25/2017 Office Visit [facility] Simone Rodriguez Right inguinal hernia Family Medicine Linwood Cali MD (Primary Dx) [address] [phone] Social History Tobacco Use Types Packs/Day [...] Sign Reading Time Taken Comments Blood Pressure 128/80 10/25/2017 1057 EST Pulse 76 10/25/2017 1057 EST Temperature 36.6 ??C (97.8 ??F) 10/25/2017 1057 EST Respiratory Rate - - Oxygen Saturation - - Inhaled Oxygen Concentration - - Weight - - Height - - Body Mass Index - - documented in this encounter Progress Notes Simone Rodriguez MD - 10/25/2017 1115 EST Subjective: Patient ID: Flavio Hamm is an 36 y.o. male. Chief Complaint Patient presents with ??? Possible Hernia (R) sided hernia, possible smaller hernia on (L) side. Mentioned by Dr. Leong years ago. HPI 2d ago noted R inguinal bulge with flexing of abdominal muscles. No inciting injury or event. Does lots of situps, pullups, pushups. 'twinge' of pain. Similar on L but smaller, no associated discomfort No change in bowel or bladder. Hx hernia surgery as a kid around 2yr. Patient Active Problem List Diagnosis ??? Left-sided [...] occ ROS - See HPI Objective: BP 128/80 (BP Cuff Location: Right arm, Patient Position: Sitting, BP Cuff Sizes: Adult, regular) Pulse 76 Temp 36.6 ??C (97.8 ??F) (Tympanic) Physical Exam Constitutional: He appears well-developed and well-nourished. No distress. HENT: Head: Normocephalic and atraumatic. Eyes: Conjunctivae are normal. Cardiovascular: Normal rate. Pulmonary/Chest: Effort normal. Genitourinary: Genitourinary Comments: R inguinal bulge with valsalva and cough. Much smaller impulse on L Neurological: He is alert. Skin: Skin is warm. He is not diaphoretic. Psychiatric: He has a normal mood and affect. His behavior is normal. Nursing note and vitals reviewed. Assessment: 36 y/o male with inguinal hernia. Discussed pathophys and elective surgery, pt would like to pursue surgical resolution as soon as possible as he is very active in December with sugar season - general surgery referral placed - red flags /warning signs reviewed which would prompt ER evaluation. Plan: Flavio was seen today for possible hernia. Diagnoses and all orders for this visit: Right inguinal hernia - Amb Consult/Follow Up General Surgery documented in this encounter Plan of Treatment Scheduled Referrals Name Type Priority Associated Diagnoses Order S chedule AMB CONS/FOLLOW UP Outpatient Referral Routine Right inguinal Ordered: GENERAL SURGERY hernia 10/25/2017 documented as of this encounter Visit Diagnoses Diagnosis Right inguinal hernia - Primary Inguinal hernia without mention of obstr uction or gangrene, unilateral or unspecified, (not specified as recurrent ) documented in this encounter Care Teams Associate Professor Of Library Media Relationship Specialty Start Date End Date Syed Leong MD PCP - General 04/08/09 0 documented as of this encounter
--- OUTSIDE RECORDS SUMMARY | 2022-02-27 01:25 | XMS_ITS | Encounter Summary ---
:1980 Author Organization [facility] Address [address] [place] [address] Care Team Providers Name Role Phone Syed Leong MD Primary Care Provider Unavailable Reason for Visit Reason Onset Date Comments Advice Only 06/01/2014 Encounter Details Date Type Department Care Team Description 06/01/2014 Telephone [facility] Family Syed Leong MD Advice Only Medicine - [address] [place] [address] Social History Tobacco Use Types Packs/Day Years Used Date Former Smoker Cigarettes 10 Quit: 03/25/20 09 Smokeless Tobacco: Never Used Alcohol Use Standard Drinks/Week Comments No 0 (1 standard drink = 0.6 oz pure alcoho l) occ Sex Assigned at Date Recorded Male 03/11/2020 9:13 EDT documented as of this encounter Miscellaneous Notes Telephone Encounter - Jodee Skinner RN - 06/01/2014 1431 EDT Informed of message, will ask for patient advocate. Thanked for the advise. elephone Encounter - Gus Crenshaw MD - 06/01/2014 1422 EDT I have no suggestions other than that she continue to work with hospital staff. Perhaps she can request to speak with a patient advocate. elephone Encounter - Aisha Gomez - 06/01/2014 1259 EDT Pt's is calling because her is in the hospital. She asked if she could stay overnight with him, but they told her she could only stay in the spear. Does anyone have any thoughts for her? Any special circumstances? Her does have a roommate. Please call and advise. documented in this encounter Plan of Treatment Not on filedocumented as of this encounter Visit Diagnoses Not on filedocumented in this encounter Care Teams Insurance Salesperson Relationship Specialty Start Date End Date Syed Leong MD PCP - General 04/08/09 0 documented as of this encounter
--- OUTSIDE RECORDS SUMMARY | 2022-02-27 01:25 | XMS_ITS | Encounter Summary ---
:1980 Author Organization [facility] Address [address] [place] [address] Care Team Providers Name Role Phone Syed Leong MD Primary Care Provider Unavailable Encounter Details Date Type Department Care Team Description 09/28/2019 Results Only [facility] Tiny Aponte [place] Lab - Main [place] [address] [address] [place] [address] [place] [address] [phone] Social History Tobacco Use Types Packs/Day Years [...] Name Priority Date/Time Associated Diagnosis Comme nts TICK PANEL PCR - Routine 09/28/2019 12:10 Results for this [facility] EST procedure are i n the results section. documented in this encounter Results TICK PANEL PCR - [facility] (09/28/2019 12:10 EST) ANAPLASMA Negative Negative [facility] PHAGOCYTOPHILIUM - [facility] BABESIA DIVERGENS/MO-[address] [facility] Comment: [facility] ADDITIONAL INFORMATION ------ This test was developed and its performance characteri stics determined by [facility] in a manner consistent with CLIA requirements. This test has not been cleared or approv ed by the U.S. Food and Drug Administration. BABESIA DUNCANI - [facility] Negative Negative [facility] BABESIA MICROTIC - Negative Negative [facility] B.MIYAMOTOI PCR Negative Negative [facility] Comment: [facility] ADDITIONAL INFORMATION ------ This test was developed and its performance characteri stics determined by [facility] in a manner consistent with CLIA requirements. This test has not been cleared or approv ed by the U.S. Food and Drug Administration. Test Performed by: [address] [address] Car Mover: Bryant Verde M.D. Ph.D.; CLIA# [id number] EHRLICHIA CHAFFEENSIS Negative Negative [facility] EHRLICHIA Negative Negative [facility] EWINGII/CANIS - [facility] EHRLICHIA MURIS-LIKE - Negative Negative [facility] Comment: [facility] ADDITIONAL INFORMATION ------ This test was developed and its performance characteri stics determined by [facility] in a manner consistent with CLIA requirements. This test has not been cleared or approv ed by the U.S. Food and Drug Administration. Specimen Narrative [facility] - 020 11:02 EST Does PT Have a Latex Allergy? NO Performing Organization Address City/State/ZIP Code Phon e Number [facility] [address] [place], [place] [id number] [place] [address] LAB documented in this encounter Visit Diagnoses Not on filedocumented in this encounter Care Teams Sock Knitter Relationship Specialty Start Date End Date Syed Leong MD PCP - General 04/08/09 0 documented as of this encounter
--- OUTSIDE RECORDS SUMMARY | 2022-02-27 01:25 | XMS_ITS | Encounter Summary ---
:1980 Author Organization [facility] Address [address] [place] [address] Care Team Providers Name Role Phone Syed Leong MD Primary Care Provider Unavailable Encounter Details Date Type Department Care Team Description 04/07/2015 Results Only [facility] Shubham White [phone] MD Philip [address] [place] [phone] (Wo rk) Social History Tobacco Use Types [...] Priority Date/Time Associated Comments Diagnosis COMPREHENSIVE Routine 04/07/2015 21:07 Results fo r this METABOLIC PANEL ([place]) EDT proce dure are in the results section. C REACTIVE PROTEIN Routine 04/07/2015 21:07 Resul ts for this EDT procedure are i n the results section. documented in this encounter Results (ABNORMAL) C REACTIVE PROTEIN (04/07/2015 21:07 EDT) Pathologist Sig nature C-Reactive Protein, 67.0 (H) 0.0 - 3.0 mg/L [facility] Specimen Narrative [facility] - 015 21:43 EDT Does PT Have a Latex Allergy? NO Performing Organization Address City/State/ZIP Code Phon e Number [facility] [address] [place] [address] [facility] (ABNORMAL) COMPREHENSIVE METABOLIC PANEL ([place]) (04/07/2015 21:07 EDT) Albumin, External 3.6 3.4 - 5.0 [facility] g/dL [facility] Total Alkaline 68 10 - 117 U/L [facility] Phosphatase, [facility] External Bilirubin, Total, 0.3 0.0 - 1.0 [facility] External mg/dL [facility] Bun, External 13 7 - 18 mg/dL [facility] Calcium, External 8.8 8.5 - 10.1 [facility] mg/dL [facility] Chloride, External 104 98 - 107 [facility] mEq/L [facility] CO2, External 23 21 - 32 mEq/L [facility] Creatinine, 0.9 0.5 - 1.4 [facility] External mg/dL [facility] GFR, Kelvin/Est., >60 [facility] External Comment: [facility] Chronic renal impairment is defined as GFR <60 Multiply result by 1.210 for patients . Glucose, Serum, 131 (H) 70 - 100 [facility] External mg/dL [facility] Potassium, 3.6 3.5 - 5.0 [facility] External mEq/L [facility] Sodium, External 137 135 - 145 [facility] mEq/L [facility] AST, External 17 10 - 37 U/L [facility] ALT, External 29 12 - 78 U/L [facility] Specimen Narrative [facility] - 015 21:43 EDT Does PT Have a Latex Allergy? NO Performing Organization Address City/[facility]/ZIP Code Phon e Number [facility] [address] [place] [address] [facility] documented in this encounter Visit Diagnoses Not on filedocumented in this encounter Care Teams Roller Maker Relationship Specialty Start Date End Date Syed Leong MD PCP - General 04/08/09 0 documented as of this encounter
--- OUTSIDE RECORDS SUMMARY | 2022-02-27 01:25 | XMS_ITS | Encounter Summary ---
:1980 Author Organization [facility] Address [address] [place] [address] Care Team Providers Name Role Phone Syed Leong MD Primary Care Provider Unavailable Reason for Visit Reason Onset Date Comments Advice Only 06/12/2015 Sinusitis 06/12/2015 Encounter Details Date Type Department Care Team Description 06/12/2015 Telephone [facility] Syed Leong, Advi ce Only; Sinusitis Family Medicine - Be latasha MORROW [address] [place] [address] Social History Tobacco Use Types Packs/Day Years Used Date Former Smoker Cigarettes 10 Quit: 03/25/20 09 Smokeless Tobacco: Never Used Alcohol Use Standard Drinks/Week Comments No 0 (1 standard drink = 0.6 oz pure alcoho l) occ Sex Assigned at Date Recorded Male 03/11/2020 9:13 EDT documented as of this encounter Miscellaneous Notes Telephone Encounter - Tania Waldrop RN - 06/14/2015 0804 EDT [email or web address] Telephone Encounter - Syed Leong MD - 06/13/2015 1836 EDT Given that we want to avoid antibiotics complications, and given that most sinus infections will clear up on their own without treatment after about two weeks, I would hesitate on treating with antibiotics. If he would like to be evaluated in the office, could be seen Wednesday if openings, or I could see him Wednesday. elephone Encounter - Tania Waldrop RN - 06/13/2015 1734 EDT I spoke to patient and he will wait to hear from Dr Leong in the am. elephone Encounter - Simone Rodriguez MD - 06/13/2015 1729 EDT Advise symptomatic care. F/u in AM if still desires treatment at which time can discuss appropriate abx therapy which could be made with avoidance of c.diff in mind. Advise against taking whatever abx he has there. elephone Encounter - Dali Luu - 06/13/2015 1724 EDT Patient called back stating that he still has the sinus issues and he now has a temperature of 99.3 He has some antibiotics at home and he was thinking about taking it, but he is concerned because he had cdiff from antibiotics before. I asked him if he could wait until tomorrow if we needed to ask Dr. Leong, and he said he was hoping to hear back tonight because he is not feeling very well. elephone Encounter - Tania Waldrop RN - 06/12/2015 1216 EDT This has been going on for 10 days he will call back Wednesday to let us know if he should be reviewed to start an antibiotic. elephone Encounter - Dona Stewart - 06/12/2015 1159 EDT Would like to speak with nurse about what seems to be sinus issues Ears hurt, sore throat, garbage in lower throat stated he got c diff once before when he was on an antibiotic documented in this encounter Plan of Treatment Not on filedocumented as of this encounter Visit Diagnoses Not on filedocumented in this encounter Care Teams Senior Php Web Developer Relationship Specialty Start Date End Date Syed Leong MD PCP - General 04/08/09 0 documented as of this encounter
--- OUTSIDE RECORDS SUMMARY | 2022-02-27 01:25 | XMS_ITS | Encounter Summary ---
:1980 Author Organization [facility] Address [address] [place] [address] Care Team Providers Name Role Phone Syed Leong MD Primary Care Provider Unavailable Reason for Referral Consult (Routine) - Specialty Report Received Specialty Diagnoses / Procedures Referred By Contact Refer red To Contact Diagnoses Acoustic neuritis, left Left-sided tinnitus Sensorineural hearing loss (SNHL) of left ear, unspecified hearing status on contralateral side Syed Leong MD [address] [place] [address] [address] Referral ID Status Reason Start Expiration Visits Visits Date Date Requested Authorized [id number] Specialty Specialty 11/06/2019 1 1 Report Services Received Required Question Answer Reason for Request: left acoustic neuroma. loss of hearing, dizziness Scheduling Comments (optional ? NAKIA describe specific scheduling needs if applicable): Practice Site (External Referral Only): [facility] Comments Asymmetric hearing loss, dizziness, tinn itus and acoustic neuroma seen on recent MRI. Reason for Visit Reason Onset Date Comments Results 11/06/2019 Encounter Details Date Type Department Care Team Description 11/06/2019 Telephone [facility] Syed Leong MD Results [facility] - [address] [id number] Social History Tobacco Use Types Packs/Day Years Used Date Former Smoker Cigarettes 10 Quit: 03/25/20 09 Smokeless Tobacco: Never Used Alcohol Use Standard Drinks/Week Comments No 0 (1 standard drink = 0.6 oz pure alcoho l) occ Sex Assigned at Date Recorded Male 03/11/2020 9:13 EDT documented as of this encounter Miscellaneous Notes Telephone Encounter - Lenny Son - 11/09/2019 1347 EST Pts calling back in, she states that they are keeping the appointment in [place], they really wanted to go to [facility] but they can not get ahold of their office to schedule an appointment. elephone Encounter - Beverly Greco - 11/09/2019 1222 EST Per [facility] there is an encounter open that says they accepted an appointment with Dr. Chacon on 11/15/2019 @0930 and I was able to confirm that there is still can appointment booked. I called and left a msg with the patient to call us back and confirm that they do still have this appointment and are all set with the referral. Beverly Greco elephone Encounter - Syed Leong MD - 11/09/2019 1209 EST Please check with the patient/ and find out what they are intending to do with the referral. I think the [facility] was canceled when they decided to go to [facility]. Telephone Encounter - Lenny Son - 11/07/2019 1544 EST Mary Lou/[facility]/ENT calling in stating they tried to give the pt a 01/08/20 appointment but the declined. elephone Encounter - Bere Maynard - 11/07/2019 0937 EST I have sent the visit notes to [facility] ENT and I have called [facility] File room and Nimesh is going to push images to them as well. elephone Encounter - Syed Leong MD - 11/06/2019 1735 EST Cancel the [facility] referral and doing [facility] referral. Also reassured her that an acoustic neuroma would not be giving back pain joint pains fatigue. It could be giving headaches. He has been seeing a natural path and being diagnosed with tickborne diseases and other things without positive tests. I strongly suggested an appointment here to investigate things further. PSS--please have [facility] radiology send images of the recent MRI to [facility] Telephone Encounter - Iesha Borden RN - 11/06/2019 0855 EST Spoke with . Pt continues to work but unable to fully explain things to his . She's unsure if he doesn't remember or if it's just too difficult. When she tries to talk with him it seems to makehis sx's worse. She has read the message in My Chart and I read the message from 11/03 that says what Syed Leong MD explained to the patient. But I think she wants a little more information. Regarding the referral. She says they are more comfortable with [facility]. Have had family members in that hospital. Advised that Dr Melgoza mentioned that the referral should go to a specific MD. So if that's the better place to go and if the timing for the appt works better they will go with [facility] if not would like it to go to [facility] elephone Encounter - Beverly Greco - 11/06/2019 0805 EST calling because it too sick to call. Head hurting. He would like to know if he could see someone at [facility] instead of [facility]? She also wanted to talk to Dr. Leong about her husbands MRI results. Her has not been well enough to give her clear information. Please call patient and advise documented in this encounter Plan of Treatment Scheduled Referrals Name Type Priority Associated Diagnoses Order S chedule AMB CONS/FOLLOW Outpatient Referral Routine Acoustic audra ritis, left Ordered: UP ENT Left-sided tinni tus 11/06/2019 Sensorineural hearing loss (SNHL) of left ear, unspecified hearing status on contralateral side documented as of this encounter Visit Diagnoses Diagnosis Acoustic neuritis, left - Primary Left-sided tinnitus Unspecified tinnitus Sensorineural hearing loss (SNHL) of lef t ear, unspecified hearing status on contralateral side documented in this encounter Care Teams Metal Control Worker Relationship Specialty Start Date End Date Syed Leong MD PCP - General 04/08/09 0 documented as of this encounter
--- OUTSIDE RECORDS SUMMARY | 2022-02-27 01:25 | XMS_ITS | Encounter Summary ---
:1980 Author Organization [facility] Address [address] [place] [address] Care Team Providers Name Role Phone Syed Leong MD Primary Care Provider Unavailable Reason for Referral Consult (3 - 10 Business Days) - Closed Specialty Diagnoses / Procedures Referred By Contact Refer red To Contact Diagnoses Gum abscess Gus Crenshaw MD [address] [place] [address] [address] Referral ID Status Reason Start Date Expiration Date Visits V isits Requested Authorized [id number] Closed Specialty 06/18/2014 1 1 Services Required Question Answer Reason for Request: right lower gum abscess Reason for Visit Reason Comments Cyst possible cyst in mouth, pt n oticed it a few weeks ago, he has been experiencing headaches as we ll, left side, pt did have his wisdom teeth out Encounter Details Date Type Department Care Team Description 06/18/[address] [facility] Gus Crenshaw bscess (Primary Family Medicine - MD Yanni Dx) [address] [address] Social History Tobacco Use Types Packs/Day Years Used Date Former Smoker Cigarettes 10 Quit: 03/25/20 09 Smokeless Tobacco: Never Used Alcohol Use Standard Drinks/Week Comments No 0 (1 standard drink = 0.6 oz pure alcoho l) occ Sex Assigned at Date Recorded Male 03/11/2020 9:13 EDT documented as of this encounter Last Filed Vital Signs Vital Sign Reading Time Taken Comments Blood Pressure 128/76 06/18/2014 1055 EDT Pulse 74 06/18/2014 1055 EDT Temperature - - Respiratory Rate - - Oxygen Saturation - - Inhaled Oxygen Concentration - - Weight 81.6 kg (180 lb) 06/18/2014 1055 EDT Height - - Body Mass Index 27.37 04/04/2014 1116 EDT documented in this encounter Patient Instructions Patient InstructionsGus Crenshaw MD - 06/18/2014 11:10 EDT Continue mouth rinse and start clindamycin 300 mg 3 times daily for possible gum abscess. documented in this encounter Ordered Prescriptions Prescription Sig Dispensed Refills Start Date End Date clindamycin (CLEOCIN) 300 Take 1 Cap by mouth 21 Cap 0 1 08/10/2014 mg capsule 3 times daily. documented in this encounter Progress Notes Gus Crenshaw MD - 06/18/2014 1142 EDT Subjective: Patient ID: Flavio Hamm is an 33 y.o. male. Chief Complaint Patient presents with ??? Cyst possible cyst in mouth, pt noticed it a few weeks ago, he has been experiencing headaches as well, left side, pt did have his wisdom teeth out HPI Flavio is here to evaluate lesion left lower gum. He developed what felt like a small pimple left lower gum medial posterior, at site of wisdom tooth which was extracted last spring. This was sore and irritating and he did scratch at it a few times. Yesterday it seemed to open and he is feeling a sharp protrusion that is still painful. He has not had other problems with his teeth. He denies sore throat or difficulty swallowing. Patient Active Problem List Diagnosis ??? Left-sided [...] Cap by mouth daily. 90 Cap 3 ??? ondansetron (ZOFRAN, HYDROCHLORIDE,) 4 mg tablet Take 4 mg by mouth every 4 hours as needed for Nausea. ??? oxyCODONE (ROXICODONE) 5 mg immediate release tablet Take 5 mg by mouth every 4 hours. No current facility-administered medications on file prior [...] occ ROS - See HPI Objective: BP 128/76 Pulse 74 Wt 81.647 kg (180 lb) BMI 27.38 kg/m2 Physical Exam Medial left lower gum reveals a 5 mm area of erythema--year-old and base of wisdom socket. On palpation there is a hard, sharp small protrusion that is tender. No tenderness of the proximal molar. No other oral lesions. No adenopathy. Assessment: Abscess-possible exostosis left lower wisdom tooth socket. Plan: Para-start clindamycin. Milligrams 3 times daily for possible gum abscess. He will contact his dentist to make an appointment. Flavio was seen today for cyst. Diagnoses and associated orders for this visit: Gum abscess - Amb Consult/Follow Up Dentistry Other Orders - clindamycin (CLEOCIN) 300 mg capsule; Take 1 Cap by mouth 3 times daily. documented in this encounter Plan of Treatment Scheduled Referrals Name Type Priority Associated Diagnoses Order S chedule AMB CONS/FOLLOW UP Outpatient Referral Routine Gum abscess Or dered: GENERAL DENTISTRY 06/18/2014 documented as of this encounter Visit Diagnoses Diagnosis Gum abscess - Primary Aggressive periodontitis, unspecified documented in this encounter Care Teams Permit Technician Relationship Specialty Start Date End Date Syed Leong MD PCP - General 04/08/09 0 documented as of this encounter
--- OUTSIDE RECORDS SUMMARY | 2022-02-27 01:25 | XMS_ITS | Encounter Summary ---
:1980 Author Organization [facility] Address [address] [place] [address] Care Team Providers Name Role Phone Syed Leong MD Primary Care Provider Unavailable Encounter Details Date Type Department Care Team Description 04/07/2015 Historical Results [facility] - Shubham White Only [facility] Resul ts MD Philip [address] [facility] [address] [place], [place] [id number] [place] [address] [phone] Social History Tobacco Use Types Packs/Day Years [...] Name Priority Date/Time Associated Diagnosis Comme nts CT ABDOMEN PELVIS W 04/07/2015 23:14 Resu lts for this CONTRAST EDT procedure are i n the results section. XR CHEST 2 VIEWS 04/07/2015 22:08 Results for this EDT procedure are i n the results section. documented in this encounter Results CT ABDOMEN PELVIS W CONTRAST (04/07/2015 23:14 EDT) Specimen Narrative RADIOLOGY - 04/07/2015 23:14 EDT ? EXAM: CAT SCAN/ABDOMEN PELVIS WITH CONTRA EX. D/ (2233) ? CLINICAL INFORMATION: ? LLQ ABD PAIN, FEVER ? EXAM: ? CT Abdomen and Pelvis With Int ravenous Contrast. ? CLINICAL HISTORY: ? 34 years old, male; Llq abd pa in, ??fever ? TECHNIQUE: ? Axial computed tomography imag es of the abdomen and pelvis ? with intravenous contrast. ? CONTRAST: ? 75 mL of OMNIPAQUE administere d intravenously. ? COMPARISON: ? CT ABDOMEN PELVIS 06/01/2014 2: 50:49 AM ? FINDINGS: ? Lower thorax: No acute finding s. ?ABDOMEN: ? Liver: ??There is hepatomegaly and fatty infiltration of the ? liver. ? Gallbladder and bile ducts: ?? Unremarkable. ??No calcified ? stones. ??No ductal dilation. ? Pancreas: ??Unremarkable. ??No ductal dilation. ??No mass. ? Spleen: ??Unremarkable. ??No s plenomegaly. ? Adrenals: ??Unremarkable. ??No mass. ? Kidneys and ureters: ??No hydr onephrosis or differential ??renal ? nephrogram. ?PELVIS: ? Bladder: ??Unremarkable. ??No mass. ? Reproductive: ??Unremarkable a s visualized. ? Appendix: ??Prior appendectomy ?ABDOMEN ?? PELVIS: ? Stomach and bowel: ??Transmura l wall thickening mid transverse ? colon through the rectosigmoid ju nction with stratification and ? induration. No abscess or pneumat osis. ??Right colonic and rectal ? wall but is not confirmed ??No ob struction. ? Peritoneum: ??Small amount of fluid. Incipient abscess not ? excluded. ??No free air. ? Lymph nodes: ??Unremarkable. ? ?No enlarged lymph nodes. ? Vasculature: ??Atheromatous ch anges of a normal caliber aorta ? and branch vessels. ??No aortic a neurysm. ? Bones: ??No acute fracture. ? IMPRESSION: ? Compatible with mild to modera te left colitis in the correct ? clinical situation. Statistically , infectious or inflammatory. ? Ischemia cannot be excluded. No m ature abscess. ? PAGE 1 ? Adriana d Report ? (CONTINUED) ? Study of 06/01/14 with colitis. ? Correlate with inflammatory bowel disease ? REPORT SIGNED IN OTHER VENDOR SYSTEM 04/07/2015 ?Reported B y: Jasmyne Sanchez MD ? CC: Syed Leong MD ? Transcribed Date/Time: 04/07/2015 (2314) ? Chuck Splitter: AD ? Printed Date/Time: 02/21/2019 (00 28) ? PAGE 2 ? Adriana d Report ? Procedure Note Jasmyne Sanchez - 07/18/2019 EXAM: CAT SCAN/ABDOMEN PELVIS WITH CONT RA EX. D/ (2233) CLINICAL INFORMATION: LLQ ABD PAIN, FEVER EXAM: CT Abdomen and Pelvis With Intravenous Contrast. CLINICAL HISTORY: 34 years old, male; Llq abd pain, fever TECHNIQUE: Axial computed tomography images of the abdomen and pelvis with intravenous contrast. CONTRAST: 75 mL of OMNIPAQUE administered intrave nously. COMPARISON: CT ABDOMEN PELVIS 06/01/2014 2:50:49 AM FINDINGS: Lower thorax: No acute findings. ABDOMEN: Liver: There is hepatomegaly and fatty infiltration of the liver. Gallbladder and bile ducts: Unremarkabl e. No calcified stones. No ductal dilation. Pancreas: Unremarkable. No ductal dilat ion. No mass. Spleen: Unremarkable. No splenomegaly. Adrenals: Unremarkable. No mass. Kidneys and ureters: No hydronephrosis or differential renal nephrogram. PELVIS: Bladder: Unremarkable. No mass. Reproductive: Unremarkable as visualize d. Appendix: Prior appendectomy ABDOMEN PELVIS: Stomach and bowel: Transmural wall thic kening mid transverse colon through the rectosigmoid junction with stratification and induration. No abscess or pneumatosis. Right colonic and rectal wall but is not confirmed No obstructio n. Peritoneum: Small amount of fluid. Inci pient abscess not excluded. No free air. Lymph nodes: Unremarkable. No enlarged lymph nodes. Vasculature: Atheromatous changes of a normal caliber aorta and branch vessels. No aortic aneurysm. Bones: No acute fracture. IMPRESSION: Compatible with mild to moderate left c olitis in the correct clinical situation. Statistically, infe ctious or inflammatory. Ischemia cannot be excluded. No mature abscess. PAGE 1 Signed Report (CONTINUED) Study of 06/01/14 with colitis. Correlate with inflammatory bowel disea se REPORT SIGNED IN OTHER VENDOR SYSTEM 04/07/2015 Reported By: Jasmyne Sanchez MD CC: Syed Leong MD Transcribed Date/Time: 04/07/2015 (2314 ) Chuck Splitter: Printed Date/Time: 02/21/2019 (0029) PAGE 2 Signed Report Performing Organization Address City/State/ZIP Code Phon e Number RADIOLOGY XR CHEST 2 VIEWS (04/07/2015 22:08 EDT) Specimen Narrative RADIOLOGY - 04/07/2015 22:08 EDT ? EXAM: RADIOLOGY/CHEST (PA ?? LAT) ?EX. D/ (2140) ? CLINICAL INFORMATION: ? FEVER ? EXAM: ? XR Chest, 2 Views. ? CLINICAL HISTORY: ? 34 years old, male; Fever ? TECHNIQUE: ? Frontal and lateral views of t he chest. ? COMPARISON: ? No relevant prior studies avai lable. ? FINDINGS: ? Lungs: ??Unremarkable. ??No co nsolidation. ? Pleural spaces: ??Unremarkable . ??No pneumothorax. ? Heart: ??Unremarkable. ??No ca rdiomegaly. ? Mediastinum: ??Unremarkable. ? Bones/joints: ??Unremarkable. ? IMPRESSION: ? Normal chest. ? REPORT SIGNED IN OTHER VENDOR SYSTEM 04/07/2015 ?Reported B y: Jasmyne Sanchez MD ? CC: Syed Leong MD ? Transcribed Date/Time: 04/07/2015 (2208) ? Chuck Splitter: [facility] ? Printed Date/Time: 02/21/2019 (00 28) ? PAGE 1 ? Adriana d Report ? Procedure Note Jasmyne Sanchez - 07/18/2019 EXAM: RADIOLOGY/CHEST (PA LAT) EX. D/ (0) CLINICAL INFORMATION: FEVER EXAM: XR Chest, 2 Views. CLINICAL HISTORY: 34 years old, male; Fever TECHNIQUE: Frontal and lateral views of the chest. COMPARISON: No relevant prior studies available. FINDINGS: Lungs: Unremarkable. No consolidation. Pleural spaces: Unremarkable. No pneumo thorax. Heart: Unremarkable. No cardiomegaly. Mediastinum: Unremarkable. Bones/joints: Unremarkable. IMPRESSION: Normal chest. REPORT SIGNED IN OTHER VENDOR SYSTEM 04/07/2015 Reported By: Jasmyne Sanchez MD CC: Syed Leong MD Transcribed Date/Time: 04/07/2015 (2208 ) Chuck Splitter: Printed Date/Time: 02/21/2019 (0028) PAGE 1 Signed Report Performing Organization Address City/State/ZIP Code Phon e Number RADIOLOGY documented in this encounter Visit Diagnoses Not on filedocumented in this encounter Care Teams Front Desk Administrator Relationship Specialty Start Date End Date Syed Leong MD PCP - General 04/08/09 0 documented as of this encounter
--- OUTSIDE RECORDS SUMMARY | 2022-02-27 01:25 | XMS_ITS | Encounter Summary ---
:1980 Author Organization [facility] Address [address] [place] [address] Care Team Providers Name Role Phone Syed Leong MD Primary Care Provider Unavailable Unknown, Provider Primary Care Provider Reason for Visit Reason Comments Other Encounter Details Date Type Department Care Team Description 04/09/2018 Refill [facility] Family Medicine Staffo Syed donaldson MD [facility] - [address] [address] Social History Tobacco Use Types Packs/Day Years [...] TAKE 1 CAPSULE BY 90 Cap 3 03/1504/15/2019 mg capsule MOUTH EVERY DAY documented in this encounter Miscellaneous Notes Telephone Encounter - Tania Waldrop RN - 04/11/2018 0804 EDT Medication(s) Requested: omeprazole [facility] out of medication? unknown Last Refill Date: 04/08/17 Last Visit Date with Ordering Provider: Many acute this year Next Non-Acute Visit Date Scheduled with Care Team: Do you want to see him? Tania Waldrop RN 04/11/2018 8:04 documented in this encounter Plan of Treatment Not on filedocumented as of this encounter Visit Diagnoses Not on filedocumented in this encounter Discontinued Medications Medication Sig Discontinue Reason Start Date End Date omeprazole (PRILOSEC) 40 TAKE 1 CAPSULE BY Reorder 04/08/2017 04/09/2018 mg capsule MOUTH EVERY DAY documented as of this encounter Care Teams Applied Mathematician Relationship Specialty Start Date End Date Syed Leong MD PCP - General 04/08/09 0 Unknown, MD Lucille PCP - General 11/24/20 documented as of this encounter
--- OUTSIDE RECORDS SUMMARY | 2022-02-27 01:25 | XMS_ITS | Encounter Summary ---
:1980 Author Organization [facility] Address [address] [place] [address] Care Team Providers Name Role Phone Syed Leong MD Primary Care Provider Unavailable Encounter Details Date Type Department Care Team Description 03/20/2019 Historical Results Only [facility] - Syed Leong [facility] Lab - Main [place] Sonya MD [address] [place] [address] Social History Tobacco Use Types [...] Procedure Name Priority Date/Time Associated Comments Diagnosis COMPLETE BLOOD COUNT Routine 03/20/2019 17:00 Res ults for this WITH DIFFERENTIAL EDT procedure are in (AUTO) the results section. LYME AB Routine 03/20/2019 17:00 Results for this EDT procedure are i n the results section. C REACTIVE PROTEIN Routine 03/20/2019 17:00 Resul ts for this EDT procedure are i n the results section. COMPREHENSIVE Routine 03/20/2019 17:00 Results fo r this METABOLIC PANEL (CMP) EDT proced ure are in the results section. documented in this encounter Results C REACTIVE PROTEIN (03/20/2019 17:00 EDT) Pathologist Sig nature C-Reactive Protein <5.0 <10.0 mg/L [facility] Specimen Narrative [facility] - 019 17:39 EDT Does PT Have a Latex Allergy? NO Performing Organization Address City/State/ZIP Code Phon e Number [facility] [address] LAB COMPREHENSIVE METABOLIC PANEL (CMP) (03/20/2019 17:00 EDT) ALBUMIN - [facility] 4.7 3.4 - 4.9 [facility] g/dL [facility] ALKALINE 51 38 - 126 U/L [facility] PHOSPHATASE - [facility] BILIRUBIN TOTAL 0.3 0.2 - 1.3 [facility] mg/dL [facility] BUN - [facility] 21 10 - 26 mg/dL [facility] CALCIUM - [facility] 10.1 8.5 - 10.5 [facility] mg/dL [facility] Chloride 101 96 - 110 [facility] mmol/L [facility] CO2 Total 29 21 - 32 mEq/L [facility] CREATININE 1.01 0.66 - 1.25 [facility] mg/dL [facility] eGFR >60 [facility] Comment: [facility] Chronic renal impairment is defined as GFR <60 Multiply result by 1.210 for patients . Anion Gap 8 0 - 18 [facility] GLUCOSE - [facility] 93 70 - 100 [facility] mg/dL [facility] Potassium 4.5 3.5 - 5.0 [facility] mEq/L [facility] Sodium 138 136 - 145 [facility] mEq/L [facility] TOTAL PROTEIN - 7.3 6.2 - 8.2 [facility] gm/dL [facility] SGOT/AST - [facility] 34 17 - 59 U/L [facility] SGPT/ALT - [facility] 44 21 - 72 U/L [facility] Specimen Narrative [facility] - 019 17:39 EDT Does PT Have a Latex Allergy? NO Performing Organization Address City/[facility]/ZIP Code Phon e Number [facility] [address] LAB LYME AB (03/20/2019 17:00 EDT) Pathologist Sig nature Lyme Ab IgG NEGATIVE [facility] AB Lyme Ab NEGATIVE [facility] AB Specimen Narrative [facility] - 019 22:01 EDT Does PT Have a Latex Allergy? NO Performing Organization Address City/State/ZIP Code Phon e Number [facility] [address] LAB (ABNORMAL) COMPLETE BLOOD COUNT WITH DIFFERENTIAL (AUTO) (03/20/2019 17:00 EDT) Pathologist Sig nature ABSOLUTE NEUTROPHIL 3.6 2.2 - 8.85 [facility] COUN - [facility] 10e3/uL CENTER LAB BASO # - [facility] 0.05 0.01 - 0.11 [facility] 10e/uL [place] [facility] BASO % - [facility] 1 0 - 2 % [facility] EOS # - [facility] 0.23 0.03 - 0.61 [facility] 10e3/ul [place] [facility] EOS % - [facility] 3 0 - 5 % [facility] GRAN % - [facility] 48.3 40 - 80 % [facility] HEMATOCRIT - [facility] 41.0 39.5 - 50.2 % [facility] HEMOGLOBIN - [facility] 14.2 13.8 - 17.3 [facility] g/dl [place] [facility] IG# - [facility] 0.01 0 - 0.7 10e3/uL [facility] IG% - [facility] 0.1 0 - 0.9 % [facility] LYMPH # - [facility] 3.1 1.09 - 3.3 [facility] 10e3/ul [place] [facility] LYMPH% - [facility] 41.6 (H) 20 - 40 % [facility] MEAN CORPUSCULAR HGB 31.1 27.6 - 33.0 pg [facility] ME D - [facility] CENTER LAB MEAN CORPUSCULAR HGB 34.6 32.8 - 36.4 [facility] CONC - [facility] g/dL CENTER LAB MEAN CELL VOLUME - 89.9 81 - 95 fl [facility] CENTER LAB MONO # - [facility] 0.5 0.1 - 0.8 [facility] 10e3/uL [place] [facility] MONO% - [facility] 6.2 0 - 12 % [facility] PLATELET COUNT 206 141 - 377 [facility] 10e3/ul [place] LAB RED BLOOD COUNT - 4.56 4.36 - 5.78 [facility] 10e3/ul CENTER LAB RED CELL DISTRI WIDTH 11.9 <14.2 % [facility] - [facility] CENTER LAB WHITE BLOOD COUNT - 7.5 4.0 - 10.4 [facility] 10e3/ul CENTER LAB Specimen Narrative [facility] - 019 18:09 EDT Does PT Have a Latex Allergy? NO Performing Organization Address City/State/ZIP Code Phon e Number [facility] [address] LAB documented in this encounter Visit Diagnoses Not on filedocumented in this encounter Care Teams Manager Eligibility Relationship Specialty Start Date End Date Syed Leong MD PCP - General 04/08/09 0 documented as of this encounter
--- OUTSIDE RECORDS SUMMARY | 2022-02-27 01:25 | XMS_ITS | Encounter Summary ---
:1980 Author Organization [facility] Address [address] [place] [address] Care Team Providers Name Role Phone Syed Leong MD Primary Care Provider Unavailable Encounter Details Date Type Department Care Team Description 08/11/2014 Results Only [facility] Family Syed Leong MD [address] [address] Social History Tobacco Use Types [...] Priority Date/Time Associated Comments Diagnosis COMPREHENSIVE Routine 08/11/2014 8:14 Results for this METABOLIC PANEL ([facility]) EST proce dure are in the results section. documented in this encounter Results COMPREHENSIVE METABOLIC PANEL ([facility]) (08/11/2014 8:14 EST) Albumin, External 4.1 3.4 - 5.0 [facility] g/dL [facility] Total Alkaline 75 10 - 117 U/L [facility] Phosphatase, [facility] External Bilirubin, Total, 0.4 0.0 - 1.0 [facility] External mg/dL [facility] Bun, External 14 7 - 18 mg/dL [facility] Calcium, External 9.5 8.5 - 10.1 [facility] mg/dL [facility] LAB Chloride, External 104 98 - 107 [facility] mEq/L [facility] CO2, External 26 21 - 32 mEq/L [facility] Creatinine, 0.8 0.5 - 1.4 [facility] External mg/dL [facility] LAB GFR, Kelvin/Est., >60 [facility] External Comment: [facility]ENTER LAB Chronic renal impairment is defined as GFR <60 Multiply result by 1.210 for patients . Glucose, Serum, 83 70 - 100 [facility] External mg/dL [facility] LAB Potassium, 4.4 3.5 - 5.0 [facility] External mEq/L [facility] Sodium, External 137 135 - 145 [facility] mEq/L [facility] AST, External 22 10 - 37 U/L [facility] ALT, External 39 12 - 78 U/L [facility] Specimen Narrative [facility] - 014 9:31 EST Does PT Have a Latex Allergy? NO Performing Organization Address City/State/ZIP Code Phon e Number [facility] [address] [place], [place] [id number] [place] [address] LAB documented in this encounter Visit Diagnoses Not on filedocumented in this encounter Care Teams Fitting Supervisor Relationship Specialty Start Date End Date Syed Leong MD PCP - General 04/08/09 0 documented as of this encounter
--- OUTSIDE RECORDS SUMMARY | 2022-02-27 01:25 | XMS_ITS | Encounter Summary ---
:1980 Author Organization [facility] Address [address] [place] [address] Care Team Providers Name Role Phone Syed Leong MD Primary Care Provider Unavailable Reason for Visit Reason Onset Date Comments Medications Refill 04/23/2015 FAMOTIDINE Encounter Details Date Type Department Care Team Description 04/23/2015 Refill [facility] Syed Leong, [facility] Refill Family Medicine - latasha MORROW (FAMOTIDINE) [address] [place] [id number] Social History Tobacco Use Types Packs/Day Years Used Date Former Smoker Cigarettes 10 Quit: 03/25/20 09 Smokeless Tobacco: Never Used Alcohol Use Standard Drinks/Week Comments No 0 (1 standard drink = 0.6 oz pure alcoho l) occ Sex Assigned at Date Recorded Male 03/11/2020 9:13 EDT documented as of this encounter Ordered Prescriptions Prescription Sig Dispensed Refills Start Date End Date fluticasone (FLONASE) 50 Instill 2 Sprays 3 Bottle 3 04/2307/22/2015 mcg/actuation nasal into both nostrils sprayIndications: Acute daily for 90 days recurrent frontal sinusitis omeprazole (PRILOSEC) 40 mg Take 1 Cap by 90 Cap 3 04/2304/11/2016 capsuleIndications: mouth daily Gastroesophageal reflux disease, esophagitis presence not specified documented in this encounter Miscellaneous Notes Telephone Encounter - Iesha Borden RN - 04/23/2015 1198 EDT Left message that Flonase has been refilled. elephone Encounter - Iesha Borden RN - 04/23/2015 1311 EDT Message relayed to pt's . Omeprazole renewed. She states pt has been using the Flonase spray along with the nasal rinses but she notices that the Flonase bottle is empty. Originally prescribed 10/18/13 for acute sinusitis. 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 Pended Flonase. elephone Encounter - Syed Leong MD - 04/23/2015 1221 EDT Being on PPI makes it more likely Avoiding antibiotics Taking probiotics Please refill omeprazole elephone Encounter - Tania Waldrop RN - 04/23/2015 1044 EDT appears he is on omeprazole. I called patient and he thought he was taking both and has been he willalso need a refill on omeprazole. Also do you have any suggestions on what he can do when he goes on antibiotics so he does not keep getting c diff ? elephone Encounter - Gaby Mosher - 04/23/2015 1041 EDT Fax received from [facility] for Famotidine which appears to have been discontinued on 05/29/14. I did not load this. documented in this encounter Plan of Treatment Not on filedocumented as of this encounter Visit Diagnoses Diagnosis Gastroesophageal reflux disease, esophag itis presence not specified - Primary Acute recurrent frontal sinusitis Acute frontal sinusitis documented in this encounter Discontinued Medications Medication Sig Discontinue Reason Start Date End Date omeprazole (PRILOSEC) 40 Take 1 Cap by mouth Reorder 4 04/23/2015 mg capsuleIndications: daily. GERD (gastroesophageal reflux disease) fluticasone (FLONASE) 50 Instill 2 Sprays Reorder 10/18/2013 04/23/2015 mcg/actuation nasal into both nostrils sprayIndications: daily for 90 days. Sinusitis, acute documented as of this encounter Care Teams Publishing Director Relationship Specialty Start Date End Date Syed Leong MD PCP - General 04/08/09 0 documented as of this encounter
--- OUTSIDE RECORDS SUMMARY | 2022-02-27 01:25 | XMS_ITS | Encounter Summary ---
:1980 Author Organization [facility] Address [address] [place] [address] Care Team Providers Name Role Phone Syed Leong MD Primary Care Provider Unavailable Reason for Visit Reason Onset Date Comments Hernia 11/24/2017 Encounter Details Date Type Department Care Team Description 11/24/2017 Telephone [facility] Syed Leong MD Hernia Medicine - [address] [address] Social History Tobacco Use Types Packs/Day Years Used Date Former Smoker Cigarettes 10 Quit: 03/25/20 09 Smokeless Tobacco: Never Used Alcohol Use Standard Drinks/Week Comments No 0 (1 standard drink = 0.6 oz pure alcoho l) occ Sex Assigned at Date Recorded Male 03/11/2020 9:13 EDT documented as of this encounter Miscellaneous Notes Telephone Encounter - Iesha Borden RN - 11/25/2017 0820 EDT states they spoke with Song Winters MD last night and prescription for Doxycyline was sentto pharmacy. They wanted to schedule appt with Syed Leong MD just in case. Scheduled CELE on 11/30/17. Will cancel if not needed. Routing to Syed Leong MD so he is aware. elephone Encounter - Song Winters - 11/24/2017 1805 EDT Agree with urgent care recommnedation if this cannot wait, otherwise can try to gethim in tomorrow am for an acute appt elephone Encounter - Iesha Borden, MICHAEL - 11/24/2017 1627 EDT Hernia surgery last wed by Dr Edwards. Wednesday went to ER in [facility] because of testicular pain, thought he was developing another hernia. U/S was done. Diagnosed with Epididymitis. Started on Levaquin. Developed joint pain, achilles pain, felt awful. Couldn't take full course. Stopped taking Wednesday. Symptoms returned today. Testicular pain, hurts to walk, feeling cold then having sweats. Advised I think he will need to go to urgent Care. Requested message go to risk control analyst MD Telephone Encounter - Vanda Freeman - 11/24/2017 1618 EDT Pt had hernia surgery last Wednesday and he was once in the ER on 11/19 for an infection. Pt feels theinfection is back again. I did ask Dr. Edwards office to talk to him and the nurse advised pt to call PCP office. documented in this encounter Plan of Treatment Not on filedocumented as of this encounter Visit Diagnoses Not on filedocumented in this encounter Care Teams Miller Supervisor Relationship Specialty Start Date End Date Syed Leong MD PCP - General 04/08/09 0 documented as of this encounter
--- OUTSIDE RECORDS SUMMARY | 2022-02-27 01:25 | XMS_ITS | Encounter Summary ---
:1980 Author Organization [facility] Address [address] [place] [address] Care Team Providers Name Role Phone Syed Leong MD Primary Care Provider Unavailable Reason for Visit Reason Onset Date Comments Advice Only 08/27/2014 Encounter Details Date Type Department Care Team Description 08/27/2014 Telephone [facility] Syed Leong MD Advice Only Medicine - [address] [address] Social History Tobacco Use Types Packs/Day Years Used Date Former Smoker Cigarettes 10 Quit: 03/25/20 09 Smokeless Tobacco: Never Used Alcohol Use Standard Drinks/Week Comments No 0 (1 standard drink = 0.6 oz pure alcoho l) occ Sex Assigned at Date Recorded Male 03/11/2020 9:13 EDT documented as of this encounter Ordered Prescriptions Prescription Sig Dispensed Refills Start Date End Date LORazepam (ATIVAN) 1 mg 1/2 to one tab 30-60 5 Tab 0 11/12/2014 tablet minutes before MRIjscript:void(0). documented in this encounter Miscellaneous Notes Telephone Encounter - Tania Waldrop RN - 08/29/2014 8206 EST Patient notified elephone Encounter - Syed Leong MD - 08/29/2014 0293 EST That is very LAST resort. He should try this med first to see if it can give some sedation. If not, then we would need to involve anesthesiology. Let him know Telephone Encounter - Tania Waldrop RN - 08/29/2014 0926 EST Flavio is feeling very embarrassed and he is wondering if you would authorize putting him out for the proceedure elephone Encounter - Vanda Freeman - 08/29/2014 0917 EST Called lorazepam to [facility] elephone Encounter - Syed Leong MD - 08/28/2014 1403 EST I will have him try some lorazepam at home this week to see how it affects him. He can experiment with the dose. If it helps, we're good. I sent the Rx to the pharmacy. elephone Encounter - Tania Waldrop RN - 08/28/2014 1359 EST He will reschedule but he said he had gotten valium like medication the last time and it made him more jittery-he is not sure if that means anything and what you should use for medication to help him with this elephone Encounter - Syed Leong MD - 08/28/2014 1355 EST He needs it if he is still having dizziness, yes. We can pre medicate if needed. elephone Encounter - Aisha Gomez - 08/27/2014 1513 EST Reason for Call: Advice Only Summary/Symptoms: Pt called about his open mri. He got to the appt last week but couldn't go throughwith it due to his claustrophobia. He wondered whether he really needs to have this or now. Please call and advise. Onset and Duration? Appointment Offered? No Aisha Torres 08/27/2014 15:13 documented in this encounter Plan of Treatment Not on filedocumented as of this encounter Visit Diagnoses Not on filedocumented in this encounter Care Teams Workers Compensation Administrator Relationship Specialty Start Date End Date Syed Leong MD PCP - General 04/08/09 0 documented as of this encounter
--- OUTSIDE RECORDS SUMMARY | 2022-02-27 01:25 | XMS_ITS | Encounter Summary ---
:1980 Author Organization [facility] Address [address] [place] [address] Care Team Providers Name Role Phone Syed Leong MD Primary Care Provider Unavailable Reason for Visit Reason Onset Date Comments Medications Refill 04/06/2017 Encounter Details Date Type Department Care Team Description 04/06/2017 Refill [facility] Syed Leong MD Medications Refill Medicine - [address] [address] Social History Tobacco Use Types Packs/Day Years Used Date Former Smoker Cigarettes 10 Quit: 03/25/20 09 Smokeless Tobacco: Never Used Alcohol Use Standard Drinks/Week Comments No 0 (1 standard drink = 0.6 oz pure alcoho l) occ Sex Assigned at Date Recorded Male 03/11/2020 9:13 EDT documented as of this encounter Miscellaneous Notes Telephone Encounter - Kaylen Turk RN - 04/06/2017 1505 EDT Patient confirms he is no longer taking this medication. elephone Encounter - Kaylen uTrk RN - 04/06/2017 1252 EDT Last Refill Date: 08/19/16 Last Visit Date with Ordering Provider: 01/12/17 Next Visit Date as it relates to the requested medication: No. Last Related Labs Date: N/A Patient was to wean off this medication in January 2017. Left message for patient to call back to discuss. Kaylen Turk RN 04/06/2017 12:52 elephone Encounter - Mariya Collier - 04/06/2017 1202 EDT Medication(s) Requested: Citaloproam [facility] Is patient out of medication? Unknown Mariya Collier 04/06/2017 12:02 documented in this encounter Plan of Treatment Not on filedocumented as of this encounter Visit Diagnoses Diagnosis Anxiety - Primary Anxiety state, unspecified documented in this encounter Care Teams Security Risk Analyst Relationship Specialty Start Date End Date Syde Leong MD PCP - General 04/08/09 0 documented as of this encounter
--- OUTSIDE RECORDS SUMMARY | 2022-02-27 01:25 | XMS_ITS | Encounter Summary ---
:1980 Author Organization [facility] Address [address] [place] [address] Care Team Providers Name Role Phone Syed Leong MD Primary Care Provider Unavailable Reason for Visit Reason Onset Date Comments Update 06/07/2014 Encounter Details Date Type Department Care Team Description 06/07/2014 Telephone [facility] Family Syed Leong MD Update [address] [address] Social History Tobacco Use Types Packs/Day Years Used Date Former Smoker Cigarettes 10 Quit: 03/25/20 09 Smokeless Tobacco: Never Used Alcohol Use Standard Drinks/Week Comments No 0 (1 standard drink = 0.6 oz pure alcoho l) occ Sex Assigned at Date Recorded Male 03/11/2020 9:13 EDT documented as of this encounter Miscellaneous Notes Telephone Encounter - Tania Waldrop RN - 06/07/2014 1424 EDT notified Telephone Encounter - Syed Leong MD - 06/07/2014 1422 EDT Test was cancelled because it was formed stool. I guess he's not having diarrhea anymore. Telephone Encounter - Tania Waldrop RN - 06/07/2014 1416 EDT He has a new sensation in his stomach it is a burning sensation . He sent a stool which was through the walk in clinic and brought to lab this am -please ck for the results. elephone Encounter - Tania Waldrop RN - 06/07/2014 1013 EDT Left message to call back elephone Encounter - Syed Leong MD - 06/07/[address] Barboza is locums surgeon at [facility]. She talked with patient who is experiencing a worsening of his diarrhea. She asked him to do another stool spec yesterday for C Diff. (not sure if he has). She changed his zithromax to Cipro in case the Campylobacter was not being completely treated. Let pt know we are in the loop and okay to call us if not improving in the next couple days or if getting worse. He could be seen Wednesday morning in f/u if needed. Let him know the above. elephone Encounter - Aisha Gomez - 06/07/[address] Barboza called asking to speak with Syed about this pt. No other information was given. documented in this encounter Plan of Treatment Not on filedocumented as of this encounter Visit Diagnoses Not on filedocumented in this encounter Care Teams French Teacher Relationship Specialty Start Date End Date Syed Leong MD PCP - General 04/08/09 0 documented as of this encounter
--- OUTSIDE RECORDS SUMMARY | 2022-02-27 01:25 | XMS_ITS | Encounter Summary ---
:1980 Author Organization [facility] Address [address] [place] [address] Care Team Providers Name Role Phone Syed Leong MD Primary Care Provider Unavailable Reason for Visit Reason Comments Anxiety Encounter Details Date Type Department Care Team Description 07/16/2016 Office Visit [facility] Beverly Brothers NP Anxiety (Primary Dx); Family Medicine - [address] TMJ syndrome [place] [address] [place], [place] [address] [address] [place] [address] [phone] Social History Tobacco Use Types Packs/Day Years Used Date Former Smoker Cigarettes 10 Quit: 03/25/20 09 Smokeless Tobacco: Never Used Alcohol Use Standard Drinks/Week Comments No 0 (1 standard drink = 0.6 oz pure alcoho l) occ Sex Assigned at Date Recorded Male 03/11/2020 9:13 EDT documented as of this encounter Last Filed Vital Signs Vital Sign Reading Time Taken Comments Blood Pressure 132/90 07/16/2016 1638 EDT Pulse 78 07/16/2016 1638 EDT Temperature 36.4 ??C (97.5 ??F) 07/16/2016 1638 EDT Respiratory Rate - - Oxygen Saturation 100% 07/16/2016 1638 EDT Inhaled Oxygen Concentration - - Weight 81.4 kg (179 lb 6.4 oz) 07/16/2016 1638 EDT Height - - Body Mass Index 27.28 04/04/2014 1116 EDT documented in this encounter Ordered Prescriptions Prescription Sig Dispensed Refills Start Date End Date cyclobenzaprine (FLEXERIL) Take 1 Tab by mouth 30 Tab 2 07/16/2016 08/19/2016 10 mg tabletIndications: at bedtime as TMJ syndrome needed for Muscle Spasms. diclofenac (VOLTAREN) 50 Take 1 Tab by mouth 60 Tab 1 01/12/2017 mg EC tabletIndications: 2 times daily. TMJ syndrome citalopram (CELEXA) 20 mg Take 1 Tab by mouth 30 Tab 1 1 09/15/2015 08/19/2016 tabletIndications: Anxiety daily. Start with 1/2 tablet daily x 1 week; if well tolerated increase to 1 tab daily documented in this encounter Progress Notes Beverly Brothers, CARTOONIST SPECIAL EFFECTS - 07/16/2016 5054 EDT Subjective: Patient ID: Flavio Hamm is an 35 y.o. male. Chief Complaint Patient presents with ??? Anxiety HPI Here today with reports of feeling really stressed out since November. He has been clenching and grinding his teeth frequently. It wakes him up at night, and he has been getting headaches from it. Went todentist and got a mouth guard; this has helped a bit, but still has neck, jaw, and upper back pain. No ear pain. Used his 's diclofenac and cyclobenzaprine with some relief. Working hard, lots of hours, having family and work stress. Ok initiaing sleep, difficulty maintaining. More irritable. He and his are both stressed out. Over the summer, he started drinking to cope; stopped drinking alcohol because he realized he was drinking way too much. He did, however, pickle sorter smoking again. He is feeling ashamed by this. He is not interested in psychotherapy. No previous history of anxiety and depression. Patient Active Problem List Diagnosis ??? Left-sided [...] 6 hours as needed for Pain. ??? indomethacin (INDOCIN SR) 75 mg SR capsule Take 1 Cap by mouth 2 times daily. (Patient not taking: Reported on 07/16/2016) 60 Cap 2 ??? omeprazole (PRILOSEC) 40 mg capsule TAKE [...] use No Comment: occ Review of Systems Musculoskeletal: Positive for myalgias. Neurological: Positive for headaches. Psychiatric/Behavioral: Negative for depression and suicidal ideas. The patient is nervous/anxious and has insomnia. - See HPI Objective: Visit Vitals ??? BP 132/90 (BP Cuff Location: Right arm, Patient Position: Sitting, BP Cuff Sizes: Adult, regular) ??? Pulse 78 ??? Temp 36.4 ??C (97.5 ??F) (Tympanic) ??? Wt 81.4 kg (179 lb 6.4 oz) ??? SpO2 100% ??? BMI 27.28 kg/m2 Physical Exam Constitutional: He is oriented to person, place, and time. Vital signs are normal. He appears well-developed and well-nourished. No distress. Appears well-groomed. HENT: Head: Normocephalic. Point tenderness over the maseter muscle, worse with tightening of the maseter muscle. Unable to fully open jaw. No clicking of the temporomandibular joint. Diffuse tenderness of the posterior neck andupper back. Normal neck range of motion. Neck: Neck supple. No thyromegaly present. Pulmonary/Chest: Effort normal. Neurological: He is alert and oriented to person, place, and time. Skin: Skin is warm and dry. Psychiatric: He has a normal mood and affect. His behavior is normal. Nursing note and vitals reviewed. Assessment: Generally healthy 35-year-old male with anxiety and TMJ. No suicidal ideation. He is having difficulty coping with anxiety. Discussed treatment of anxiety with medications and/or psychotherapy. Shared agreement to try citalopram. Discussed possible side effects, risks and benefits of treatment. TMJ - discussed symptomatic treatment with NSAIDs and muscle relaxers. He has had naproxen in the past that caused throat swelling; he has used ibuprofen and diclofenac in the past without any problems. Plan: Flavio was seen today for anxiety. Diagnoses and all orders for this visit: Anxiety - citalopram (CELEXA) 20 mg tablet; Take 1 Tab by mouth daily. Start with 1/2 tablet daily x 1 week;if well tolerated increase to 1 tab daily - He declined psychotherapy at this time - follow up in four weeks to assess medication tolerance TMJ syndrome - diclofenac (VOLTAREN) 50 mg EC tablet; Take 1 Tab by mouth 2 times daily. - cyclobenzaprine (FLEXERIL) 10 mg tablet; Take 1 Tab by mouth at bedtime as needed for Muscle Spasms. - Continue with mouthguard Return in about 4 weeks (around 08/13/2016) for 30 min ROV. 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
--- OUTSIDE RECORDS SUMMARY | 2022-02-27 01:25 | XMS_ITS | Encounter Summary ---
:1980 Author Organization [facility] Address [address] [place] [address] Care Team Providers Name Role Phone Syed Leong MD Primary Care Provider Unavailable Reason for Visit Reason Comments Other Encounter Details Date Type Department Care Team Description 04/15/2019 Refill [facility] Family Medicine StaffSyed sun rd, [place] [address] Social History Tobacco Use Types Packs/Day Years [...] TAKE 1 CAPSULE BY 90 Cap 3 01/201904/02/2020 mg capsule MOUTH EVERY DAY documented in this encounter Miscellaneous Notes Telephone Encounter - Jaspal Cerda RN - 04/17/2019 1130 EDT Medication(s) Requested: omeprazole [facility] Is patient out of medication? Unknown Last Refill Date: 03/15/18 Last Visit Date with Ordering Provider: 03/20/19 Next Non-Acute Visit Date Scheduled with Care Team: No. 03/20/19 [facility] JASPAL CERDA RN 04/17/2019 11:31 documented in this encounter Plan of Treatment Not on filedocumented as of this encounter Visit Diagnoses Not on filedocumented in this encounter Discontinued Medications Medication Sig Discontinue Reason Start Date End Date omeprazole (PRILOSEC) 40 TAKE 1 CAPSULE BY Reorder 04/11/2018 04/15/2019 mg capsule MOUTH EVERY DAY documented as of this encounter Care Teams Tests Superintendent Relationship Specialty Start Date End Date Syed Leong MD PCP - General 04/08/09 0 documented as of this encounter
--- OUTSIDE RECORDS SUMMARY | 2022-02-27 01:25 | XMS_ITS | Encounter Summary ---
:1980 Author Organization [facility] Address [address] [place] [address] Care Team Providers Name Role Phone Syed Leong MD Primary Care Provider Unavailable Encounter Details Date Type Department Care Team Description 03/30/2019 Historical Results Only [facility] - Syed Leong [facility] Radiology Resul rosie Hassan MD [address] [place] [address] Social History Tobacco Use Types [...] Priority Date/Time Associated Diagnosis Comme nts XR CHEST 2 VIEWS 03/30/2019 11:19 EDT Res ults for this procedure are i n the results section. documented in this encounter Results XR CHEST 2 VIEWS (03/30/2019 11:19 EDT) Specimen Narrative [facility] - 03/30/2019 11:23 EDT ? EXAM: RADIOLOGY/CHEST PA ?? LAT ?EX. D/ (1012) ? CLINICAL INFORMATION: ? M53.83 FATIGUE, UNSPECIFIED TYPE; M79.10 MYALGIA ? M25.50 ARTHRALGIA, UNSPECIFIED ROSY INT ? INDICATION: M53.83 FATIGUE, UNSPE CIFIED TYPE; M79.10 MYALGIA, M25.50 ? ARTHRALGIA, UNSPECIFIED JOINT FAT IGUE ? TECHNIQUE: ??Chest, PA and latera l views ? COMPARISON: 04/07/2015. ? FINDINGS: The lungs are clear. Th e cardiomediastinal silhouette and ? pulmonary vessels are ??within no rmal limits. No pleural effusion or ? pneumothorax is seen. ? IMPRESSION: ? 1. No acute cardiopulmonary disea se detected. ? REPORT SIGNED IN OTHER VENDOR SYSTEM 03/30/2019 ?Reported B y: Flavio Capone MD ? CC: Syed Leong MD ? Transcribed Date/Time: 03/30/2019 (1123) ? Combined Rail Operator: ? Printed Date/Time: 06/01/2019 (03 18) ? PAGE 1 ? Adriana d Report ? Procedure Note Flavio Capone MD - 07/18/2019 EXAM: RADIOLOGY/CHEST PA LAT EX. D/T: 0 03/30/2019 (1012) CLINICAL INFORMATION: M53.83 FATIGUE, UNSPECIFIED TYPE; M79.1 0 MYALGIA M25.50 ARTHRALGIA, UNSPECIFIED JOINT INDICATION: M53.83 FATIGUE, UNSPECIFIED TYPE; M79.10 MYALGIA, M25.50 ARTHRALGIA, UNSPECIFIED JOINT FATIGUE TECHNIQUE: Chest, PA and lateral views COMPARISON: 04/07/2015. FINDINGS: The lungs are clear. The card iomediastinal silhouette and pulmonary vessels are within normal mckinney its. No pleural effusion or pneumothorax is seen. IMPRESSION: 1. No acute cardiopulmonary disease det ected. REPORT SIGNED IN OTHER VENDOR SYSTEM 03/30/2019 Reported By: Flavio Capone MD CC: Syed Leong MD Transcribed Date/Time: 03/30/2019 (1123 ) Combined Rail Operator: Printed Date/Time: 06/01/2019 (5969) PAGE 1 Signed Report Performing Organization Address City/State/ZIP Code Phon e Number [facility] documented in this encounter Visit Diagnoses Not on filedocumented in this encounter Care Teams Supervisor Molding Relationship Specialty Start Date End Date Syed Leong MD PCP - General 04/08/09 0 documented as of this encounter
--- OUTSIDE RECORDS SUMMARY | 2022-02-27 01:25 | XMS_ITS | Encounter Summary ---
:1980 Author Organization [facility] Address [address] [place] [address] Care Team Providers Name Role Phone Syed Leong MD Primary Care Provider Unavailable Encounter Details Date Type Department Care Team Description 06/02/2014 Results Only [facility] [place] Nimesh [phone] [address] [place] [address] (Wo rk) Social History Tobacco Use Types [...] Associated Diagnosis Comme nts BASIC METABOLIC Routine 06/02/2014 6:38 EDT Resul ts for this PANEL ([facility] procedure are i n the results section. documented in this encounter Results BASIC METABOLIC PANEL ([facility] (06/02/2014 6:38 EDT) Bun, External 9 7 - 18 mg/dL [facility] Calcium, External 9.2 8.5 - 10.1 [facility] mg/dL [facility] Chloride, External 101 98 - 107 [facility] mEq/L [facility] CO2, External 28 21 - 32 mEq/L [facility] Creatinine, 0.9 0.5 - 1.4 [facility] External mg/dL [facility] GFR, Kelvin/Est., >60 [facility] External Comment: [facility] Chronic renal impairment is defined as GFR <60 Multiply result by 1.210 for patients . Glucose, Serum, 85 70 - 100 [facility] External mg/dL [facility] Potassium, 4.4 3.5 - 5.0 [facility] External mEq/L [facility] Sodium, External 135 135 - 145 [facility] mEq/L [facility] Specimen Performing Organization Address City/State/[facility] Code Phon e Number [facility] [address] [facility] documented in this encounter Visit Diagnoses Not on filedocumented in this encounter Care Teams Parking Assistant Relationship Specialty Start Date End Date Syed Leong MD PCP - General 04/08/09 0 documented as of this encounter
--- OUTSIDE RECORDS SUMMARY | 2022-02-27 01:25 | XMS_ITS | Encounter Summary ---
:1980 Author Organization [facility] Address [address] [place] [address] Care Team Providers Name Role Phone Syed Leong MD Primary Care Provider Unavailable Reason for Referral Radiology Services (Routine) - Closed Specialty Diagnoses / Procedures Referred By Contact Refer red To Contact Diagnoses Asymmetrical hearing loss of left ear Tinnitus, left ear Dizziness Syed Leong MD Procedures MR HEAD WO CONTRAST [address] [facility] [address] [place] [address] Referral ID Status Reason Start Date Expiration Date Visits Requ ested Visits Authorized [id number] Closed 09/30/2019 1 1 Reason for Visit Reason Onset Date Comments Referral Request 09/23/2019 Encounter Details Date Type Department Care Team Description 09/23/2019 Telephone [facility] Syed Leong MD Referral Request Medicine - [facility] [address] [facility] [address] [address] Social History Tobacco Use Types Packs/Day Years Used Date Former Smoker Cigarettes 10 Quit: 03/25/20 09 Smokeless Tobacco: Never Used Alcohol Use Standard Drinks/Week Comments No 0 (1 standard drink = 0.6 oz pure alcoho l) occ Sex Assigned at Date Recorded Male 03/11/2020 9:13 EDT documented as of this encounter Miscellaneous Notes Telephone Encounter - Syed Leong MD - 09/30/2019 1612 EST Has tried using lorazepam in past for pre procedure and didn't work. Will need conscious sedation. Also c/o fatigue, sleepiness. 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 Still not feeling well. Suggested OV here. Telephone Encounter - Tami Steven - 09/25/2019 1102 EST Outgoing call to patient, he states that he would leave the decision to whatever Dr. Leong thought was best. Patient does state that he has an extremely difficult time with MRI machines including Open MRI. Patient believes that he would need to take medication that would knock him out. elephone Encounter - Syed Leong MD - 09/23/2019 0516 EST Patient has an asymmetrical hearing loss and has been recommended to have an MRI for further evaluation. Is he willing to proceed with that or does he want to discuss further? OV? documented in this encounter Plan of Treatment Scheduled Orders Name Type Priority Associated Diagnoses Order S chedule MR HEAD WO CONTRAST Imaging Routine Asymmetrical hearing loss of Ordered: 09/30/2019 left ear Tinnitus, left e ar Dizziness documented as of this encounter Visit Diagnoses Diagnosis Asymmetrical hearing loss of left ear - Primary Tinnitus, left ear Dizziness Dizziness and giddiness documented in this encounter Care Teams Allergist/Pediatric Pulmonologist Relationship Specialty Start Date End Date Syed Leong MD PCP - General 04/08/09 0 documented as of this encounter
--- OUTSIDE RECORDS SUMMARY | 2022-02-27 01:25 | XMS_ITS | Encounter Summary ---
:1980 Author Organization [facility] Address [address] [place] [address] Care Team Providers Name Role Phone Syed Leong MD Primary Care Provider Unavailable Reason for Visit Reason Onset Date Comments Lyme Disease 03/15/2019 Encounter Details Date Type Department Care Team Description 03/15/2019 Telephone [facility] Family Syed Leong MD Lyme Disease Medicine - [address] [address] Social History Tobacco Use Types Packs/Day Years Used Date Former Smoker Cigarettes 10 Quit: 03/25/20 09 Smokeless Tobacco: Never Used Alcohol Use Standard Drinks/Week Comments No 0 (1 standard drink = 0.6 oz pure alcoho l) occ Sex Assigned at Date Recorded Male 03/11/2020 9:13 EDT documented as of this encounter Miscellaneous Notes Telephone Encounter - Kirsty Montoya RN - 03/15/2019 1319 EDT Patient scheduled for 03/20 at 400 pm with PCP. elephone Encounter - Tami Steven - 03/15/2019 1257 EDT Patient's calling stating that patient has been having lots of issues with Lyme disease, very tired lots of headaches, last three weeks have been very bad. She would like to know if there is anything to be done to treat symptoms or if he should be seen in the office. Please advise. documented in this encounter Plan of Treatment Not on filedocumented as of this encounter Visit Diagnoses Not on filedocumented in this encounter Care Teams Pharmacy Salesperson Relationship Specialty Start Date End Date Syed Leong MD PCP - General 04/08/09 0 documented as of this encounter
--- OUTSIDE RECORDS SUMMARY | 2022-02-27 01:25 | XMS_ITS | Encounter Summary ---
:1980 Author Organization [facility] Address [address] [place] [address] Care Team Providers Name Role Phone Syed Leong MD Primary Care Provider Unavailable Reason for Visit Reason Comments Hernia Consult (Routine) - Specialty Report Received Specialty Diagnoses / Procedures Referred By Contact Refer red To Contact General Surgery Diagnoses Right inguinal hernia Simone Rodriguez MD [facility] [address] [facility] [address] [place] [address] [place] [address] Fax: Referral ID Status Reason Start Expiration Visits Visits Date Date Requested Authorized [id number] Specialty Specialty 10/25/2017 1 1 Report Services Received Required Encounter Details Date Type Department Care Team Description 10/28/2017 Office Visit [facility] Sami Edwards Non-r ecurrent General Surgery - MD Mary unilateral inguinal [place] [address] hernia without [address] obstruction or [address] [place], [place] gangrene (Primary Dx) [place] [phone] Social History Tobacco Use Types Packs/Day [...] Sign Reading Time Taken Comments Blood Pressure 145/76 10/28/2017 1347 EST Pulse 86 10/28/2017 1347 EST Temperature - - Respiratory Rate - - Oxygen Saturation - - Inhaled Oxygen Concentration - - Weight 74.8 kg (165 lb) 10/28/2017 1347 EST Height 172.7 cm (5' 8) 10/28/2017 1347 EST Body Mass Index 25.09 10/28/2017 1347 EST documented in this encounter Progress Notes Sami Edwards MD - 10/28/2017 1400 EST [facility] 10/28/2017 HPI: Chief Complaint Patient presents with ??? Hernia . Flavio Hamm is a 36 y.o. male presenting with a history of intermittent right groin pain. He has not noticed a bulge. The pain is located in the groin without radiation. He first noticed the painlast weekend, but has improved. 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 Past Medical History: Diagnosis Date ??? Hearing loss Left high frequency with assoc. Tinnitus Patient Active Problem List Diagnosis ??? Left-sided tinnitus ??? Hearing loss in left ear ??? Gastroesophageal reflux disease ??? Low back pain without sciatica ??? Non-recurrent unilateral inguinal hernia without obstruction or gangrene Current Outpatient Prescriptions: acetaminophen (TYLENOL) 325 mg tablet ibuprofen (MOTRIN) 600 mg tablet omeprazole (PRILOSEC) 40 mg capsule No current facility-administered medications for this visit. Augmentin [amoxicillin-pot clavulanate]; Naproxen; Sulfa (sulfonamide antibiotics); and Wellbutrin [bupropion] Past Surgical History: Procedure Laterality Date ??? APPENDECTOMY ??? HERNIA REPAIR 1985 Bilateral inguinal ??? LAPAROSCOPIC APPENDECTOMY 05/27/14 Family History Problem Relation Age of Onset ??? Diabetes Mother ??? *Other(comment) Neg Hx ??? Allergic Rhinitis Neg Hx ??? Anesthesia Problem Neg Hx ??? Asthma Neg Hx ??? Bleeding Problem Neg Hx ??? Cancer Neg Hx ??? Hearing Loss Neg Hx ??? Migraines Neg Hx ??? Thyroid Disease Neg Hx reports that he quit smoking about 8 years ago. His smoking use included Cigarettes. He quit after 10.00 years of use. He has never used smokeless tobacco. He reports that he does not drink alcohol oruse illicit drugs. REVIEW OF SYMPTOMS: Review of Systems 04/04/2014 Head & Neck Hearing loss;Tinnitus PHYSICAL EXAM: BP (!) 145/76 Pulse 86 Ht 172.7 cm (68) Wt 74.8 kg (165 lb) BMI 25.09 kg/m2 GENERAL APPEARANCE: alert, cooperative HEENT exam is unremarkable. Neck is without masses, bruits, or lymphadenopathy. Lungs are clear. Cardiac exam is regular in both rate and rhythm. Abdomen is soft, there is no tenderness. There are no masses or haptosplenomegaly. Skin exam reveals no rashes. Groin exam reveals no lymphadenopathy. Careful examination with coughing and straining reveals a small Right-sided inguinal hernia. The left sideis normal. Extremity: Extremities warm to touch, pink, with no edema., vascular exam is normal. NEUROLOGIC/PSYCHIATRIC: no focal deficits, normal affect IMPRESSION: Right inguinal hernia. PLAN: 1. First I discussed and reviewed with Mr. Hamm the pathophysiology of hernias. Also I provided additional written information. 2. I recommend elective repair. I have discussed with the patient the risks of the procedure including hemorrhage, infection, injury to underlying bowel or the spermatic chord and associated nerves, and recurrence. He understands and consents to the procedure. 3. In addition we reviewed the procedure and the postoperative expectations with regard to activity and recovery and postoperative wound care. He may want to consider postpone to another time of year when he is less busy at work. 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 4. He will not need preoperative studies. Surgery to be scheduled a this earliest convenience. documented in this encounter Plan of Treatment Not on filedocumented as of this encounter Visit Diagnoses Diagnosis Non-recurrent unilateral inguinal hernia without obstruction or gangrene - Primary documented in this encounter Care Teams Clinical Trials Specialist Relationship Specialty Start Date End Date Syed Leong MD PCP - General 04/08/09 0 documented as of this encounter
--- OUTSIDE RECORDS SUMMARY | 2022-02-27 01:25 | XMS_ITS | Encounter Summary ---
:1980 Author Organization [facility] Address [address] [place] [address] Care Team Providers Name Role Phone Syed Leong MD Primary Care Provider Unavailable Reason for Visit Reason Onset Date Comments Patient Outreach 11/09/2018 Encounter Details Date Type Department Care Team Description 11/09/2018 Telephone [facility] Syed Leong MD Patient Outreach Medicine - [address] [address] Social History Tobacco Use Types Packs/Day Years Used Date Former Smoker Cigarettes 10 Quit: 03/25/20 09 Smokeless Tobacco: Never Used Alcohol Use Standard Drinks/Week Comments No 0 (1 standard drink = 0.6 oz pure alcoho l) occ Sex Assigned at Date Recorded Male 03/11/2020 9:13 EDT documented as of this encounter Miscellaneous Notes Telephone Encounter - Cherry Black - 11/09/2018 1112 EST Left message for patient to call back and schedule an annual physical as there is something's on their health maintenance that need to be addressed as they are overdue. documented in this encounter Plan of Treatment Not on filedocumented as of this encounter Visit Diagnoses Not on filedocumented in this encounter Care Teams Clipper Operator Relationship Specialty Start Date End Date Syed Leong MD PCP - General 04/08/09 0 documented as of this encounter
--- OUTSIDE RECORDS SUMMARY | 2022-02-27 01:25 | XMS_ITS | Encounter Summary ---
:1980 Author Organization [facility] Address [address] [place] [address] Care Team Providers Name Role Phone Syed Leong MD Primary Care Provider Unavailable Encounter Details Date Type Department Care Team Description 05/31/2014 Results Only [facility] Richard Baker, [address] [place] [phone] (Wo rk) Social History Tobacco [...] Priority Date/Time Associated Comments Diagnosis COMPREHENSIVE Routine 05/31/2014 23:57 Results fo r this METABOLIC PANEL [place]T proce dure are in the results section. documented in this encounter Results (ABNORMAL) COMPREHENSIVE METABOLIC PANEL [place] (05/31/2014 23:57 EDT) Albumin, External 3.6 3.4 - 5.0 [facility] g/dL [facility] Total Alkaline 69 10 - 117 U/L [facility] Phosphatase, [facility] External Bilirubin, Total, 0.3 0.0 - 1.0 [facility] External mg/dL [facility] Bun, External 10 7 - 18 mg/dL [facility] Calcium, External 9.6 8.5 - 10.1 [facility] mg/dL [facility] Chloride, External 103 98 - 107 [facility] mEq/L [facility] CO2, External 27 21 - 32 mEq/L [facility] Creatinine, 0.9 0.5 - 1.4 [facility] External mg/dL [facility] GFR, Kelvin/Est., >60 [facility] External Comment: [facility] Chronic renal impairment is defined as GFR <60 Multiply result by 1.210 for patients . Glucose, Serum, 112 (H) 70 - 100 [facility] External mg/dL [facility] Potassium, 4.4 3.5 - 5.0 [facility] External mEq/L [facility] Sodium, External 136 135 - 145 [facility] mEq/L [facility] Total Protein, 7.7 6.4 - 8.2 [facility] External gm/dl [facility] AST, External 30 10 - 37 U/L [facility] ALT, External 57 12 - 78 U/L [facility] Specimen Narrative [facility] - 014 0:29 EDT Does PT Have a Latex Allergy? NO Performing Organization Address City/State/ZIP Code Phon e Number [facility] [address] [place], [place] [address] [place] [address] LAB documented in this encounter Visit Diagnoses Not on filedocumented in this encounter Care Teams Personal Coach Relationship Specialty Start Date End Date Syed Leong MD PCP - General 04/08/09 0 documented as of this encounter
--- OUTSIDE RECORDS SUMMARY | 2022-02-27 01:25 | XMS_ITS | Encounter Summary ---
:1980 Author Organization [facility] Address [address] [place] [address] Care Team Providers Name Role Phone Syed Leong MD Primary Care Provider Unavailable Reason for Visit Reason Onset Date Comments Medications Refill 04/08/2017 Encounter Details Date Type Department Care Team Description 04/08/2017 Refill [facility] Heidy Arzate er Medications Refill Medicine - [place] MD Carlos [address] [place], [place] [address] [place] [address] [phone] (Wo rk) Social History Tobacco Use Types [...] TAKE 1 CAPSULE BY 90 Cap 3 03/1404/09/2018 mg capsule MOUTH EVERY DAY documented in this encounter Miscellaneous Notes Telephone Encounter - Kaylen Turk RN - 04/08/2017 0805 EDT Medication(s) Requested: Omeprazole Pharmacy: [facility] Last Refill Date: 04/13/16 Last Visit Date: 01/12/17 Next Visit Date: Visit date not found Is patient out of medication? Unknown Kaylen Turk RN 04/08/2017 8:45 documented in this encounter Plan of Treatment Not on filedocumented as of this encounter Visit Diagnoses Not on filedocumented in this encounter Discontinued Medications Medication Sig Discontinue Reason Start Date End Date omeprazole (PRILOSEC) 40 TAKE ONE CAPSULE BY Reorder 6 04/08/2017 mg capsule MOUTH EVERY DAY documented as of this encounter Care Teams Safety Leader Relationship Specialty Start Date End Date Syed Leong MD PCP - General 04/08/09 0 documented as of this encounter
--- OUTSIDE RECORDS SUMMARY | 2022-02-27 01:25 | XMS_ITS | Encounter Summary ---
:1980 Author Organization [facility] Address [address] [place] [address] Care Team Providers Name Role Phone Syed Leong MD Primary Care Provider Unavailable Reason for Referral Consult, Test and Treat (Routine/Next Available) - Closed Specialty Diagnoses / Procedures Referred By Contact Refer red To Contact Diagnoses Low back pain without sciatica, unspecified back pain laterality Syed Leong MD [address] [place] [address] [address] [place] [id number] Referral ID Status Reason Start Date Expiration Date Visits V isits Requested Authorized [id number] Closed Specialty 04/05/2015 1 1 Services Required Question Answer Reason for Request: exacerbation of recurrent LB P Comments Patient will call us to let us know ha darling PT he would like to see so we can fax Reason for Visit Reason Onset Date Comments Back Pain 04/05/2015 Encounter Details Date Type Department Care Team Description 04/05/2015 Telephone [facility] Syed Leong MD Back Pain Medicine - [address] [place] [address] Social History Tobacco Use Types Packs/Day Years Used Date Former Smoker Cigarettes 10 Quit: 03/25/20 09 Smokeless Tobacco: Never Used Alcohol Use Standard Drinks/Week Comments No 0 (1 standard drink = 0.6 oz pure alcoho l) occ Sex Assigned at Date Recorded Male 03/11/2020 9:13 EDT documented as of this encounter Miscellaneous Notes Telephone Encounter - Vanda Freeman - 04/12/2015 1615 EDT Left 2 messages for pt and did not hear back - referral mailed to pt with list of PT offices. Telephone Encounter - Syed Leong MD - 04/05/2015 1719 EDT Yes I would do referral Ordered Left message they should call us to give us there choice of where to send the order. Telephone Encounter - Dali Luu - 04/05/2015 1329 EDT Patients called stating that her injured his back. 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 He is having difficulty bending over (can't put on his socks). Pain comes and goes. He had an injury many years ago. She is wondering if a referral to PT can be made without a visit to Dr. Leong? She gave him diclofenac this morning. She has tramadol and cyclobenzaprine hat she plans to give himat night. They are medications that were prescribed to her when she had a similar injury documented in this encounter Plan of Treatment Scheduled Referrals Name Type Priority Associated Diagnoses Order S chedule AMB CONS/FOLLOW UP Outpatient Referral Routine Low Back Pain W ithout Ordered: PHYSICAL THERAPY Sciatica, Unspecified Back Pain Laterality documented as of this encounter Visit Diagnoses Diagnosis Low back pain without sciatica, unspecif ied back pain laterality - Primary documented in this encounter Care Teams Demo Coordinator Relationship Specialty Start Date End Date Syed Leong MD PCP - General 04/08/09 0 documented as of this encounter
--- OUTSIDE RECORDS SUMMARY | 2022-02-27 01:25 | XMS_ITS | Encounter Summary ---
:1980 Author Organization [facility] Address [address] [place] [address] Care Team Providers Name Role Phone Syed Leong MD Primary Care Provider Unavailable Reason for Visit Reason Onset Date Comments Referral Request 10/05/2019 Encounter Details Date Type Department Care Team Description 10/05/2019 Telephone [facility] Family Syed Leong MD Referral Request Medicine - [address] [address] Social History Tobacco Use Types Packs/Day Years Used Date Former Smoker Cigarettes 10 Quit: 03/25/20 09 Smokeless Tobacco: Never Used Alcohol Use Standard Drinks/Week Comments No 0 (1 standard drink = 0.6 oz pure alcoho l) occ Sex Assigned at Date Recorded Male 03/11/2020 9:13 EDT documented as of this encounter Miscellaneous Notes Telephone Encounter - Iesha Borden RN - 10/05/2019 1358 EST Order signed elephone Encounter - Bear Willingham - 10/05/2019 1334 EST Received notification from [facility] that they need a new order for MRI head w/wo contrast. Order pended. Bear Willingham documented in this encounter Plan of Treatment Not on filedocumented as of this encounter Visit Diagnoses Diagnosis Asymmetrical hearing loss of left ear - Primary Tinnitus, left Unspecified tinnitus Dizziness Dizziness and giddiness documented in this encounter Care Teams Director Security Management Relationship Specialty Start Date End Date Syed Leong MD PCP - General 04/08/09 0 documented as of this encounter
--- OUTSIDE RECORDS SUMMARY | 2022-02-27 01:26 | XMS_ITS | Encounter Summary ---
:1980 Author Organization [facility] Address [address] [place] [address] Care Team Providers Name Role Phone Syed Leong MD Primary Care Provider Unavailable Reason for Visit Reason Onset Date Comments Sinusitis 07/20/2011 Encounter Details Date Type Department Care Team Description 07/20/2011 Telephone [facility] Ameena Barragan RN Sinusitis Medicine - [address] [address] Social History Tobacco Use Types Packs/Day Years Used Date Former Smoker 1 10 Quit: 03/25/20 09 Alcohol Use Standard Drinks/Week Comments Yes 0 (1 standard drink = 0.6 oz pure alcoho l) occ Sex Assigned at Date Recorded Male 03/11/2020 9:13 EDT documented as of this encounter Ordered Prescriptions Prescription Sig Dispensed Refills Start Date End Date amoxicillin (AMOXIL) 500 Take 2 Caps by 40 Cap 0 011 08/04/2011 mg capsule mouth 2 times daily. documented in this encounter Miscellaneous Notes Telephone Encounter - Syed Leong MD - 07/21/2011 1221 EST I sent the Rx to the pharmacy. elephone Encounter - Tania Waldrop RN - 07/20/2011 1126 EST Mom called she said Awa started a new job today and can't get off to come in and was hoping this onceyou would call in something for him -he started with sinus infection a little over two weeks ago-he has green -yellow nasal secretions and sinus garcia and pressure. She wanted to wait until you came back tomorrow--there is no second level to send to today.she will wait till tomorrow to hear from you. documented in this encounter Plan of Treatment Not on filedocumented as of this encounter Visit Diagnoses Diagnosis Sinusitis, acute - Primary Acute sinusitis, unspecified documented in this encounter Discontinued Medications Medication Sig Discontinue Reason Start Date End Date cefUROXime (CEFTIN) 500 Take 1 Tab by mouth Therapy completed 01/1107/21/2011 mg tablet 2 times daily. documented as of this encounter Care Teams General Warehouse Worker Relationship Specialty Start Date End Date Syed Leong MD PCP - General 04/08/09 0 documented as of this encounter
--- OUTSIDE RECORDS SUMMARY | 2022-02-27 01:26 | XMS_ITS | Encounter Summary ---
:1980 Author Organization [facility] Address [address] [place] [address] Care Team Providers Name Role Phone Syed Leong MD Primary Care Provider Unavailable Reason for Visit Reason Onset Date Comments URI 06/19/2010 Encounter Details Date Type Department Care Team Description 06/19/2010 Telephone [facility] Syed Leong MD [address] [address] Social History Tobacco Use Types Packs/Day Years Used Date Former Smoker Quit: 03/25/20 09 Sex Assigned at Date Recorded Male 03/11/2020 9:13 EDT documented as of this encounter Miscellaneous Notes Telephone Encounter - Tania Waldrop RN - 06/19/2010 1416 EDT scheduled Telephone Encounter - Syed Leong MD - 06/19/2010 1306 EDT I Could see him tomorrow at 2:15-okay to double book. elephone Encounter - Dona Stewart - 06/19/2010 1015 EDT Pt is having a cold couple weeks, has gotten worse, complains of blood in nasal drainage, sore throat What shoujld they do? riky called [phone] documented in this encounter Plan of Treatment Not on filedocumented as of this encounter Visit Diagnoses Not on filedocumented in this encounter Care Teams Assistant Floor Covering Printer Relationship Specialty Start Date End Date Syed Leong MD PCP - General 04/08/09 0 documented as of this encounter
--- OUTSIDE RECORDS SUMMARY | 2022-02-27 01:26 | XMS_ITS | Encounter Summary ---
:1980 Author Organization [facility] Address [address] [place] [address] Care Team Providers Name Role Phone Syed Leong MD Primary Care Provider Unavailable Reason for Visit Reason Onset Date Comments Hospital Discharge Follow Up 05/29/2014 Encounter Details Date Type Department Care Team Description 05/29/2014 Telephone [facility], Hospital Discharge Family Medicine - MICHAEL Marin Follow Up [address] [place] [address] Social History Tobacco Use Types Packs/Day Years Used Date Former Smoker Cigarettes 10 Quit: 03/25/20 09 Smokeless Tobacco: Never Used Alcohol Use Standard Drinks/Week Comments No 0 (1 standard drink = 0.6 oz pure alcoho l) occ Sex Assigned at Date Recorded Male 03/11/2020 9:13 EDT documented as of this encounter Miscellaneous Notes Telephone Encounter - Tania Waldrop RN - 05/29/2014 1122 EDT notified. She said they gave him Zofran 4 mg every 4 hrs as needed given by Dr shoemaker -added to med list elephone Encounter - Syed Leong MD - 05/29/2014 1116 EDT Yes, C. Diff was done and neg. All other cultures neg at this point. Okay to do Imodium AD to treat the diarrhea, which will hopefully resolve soon. If not, we'll need to know. elephone Encounter - Tania Waldrop RN - 05/29/2014 1029 EDT Appendectomy. F/u with Dr shoemaker Medications reconciled Patient called-sore from surgical has diarrhea x-3-5 days -Stool was tested by Dr Shoemaker according topatient in hospital and he was waiting to hear from him about the results. He said he was put on something for nausea but it is not on the med list. I saw report in [facility] on stool negative but I did not see cdiff checked please review documented in this encounter Plan of Treatment Not on filedocumented as of this encounter Visit Diagnoses Not on filedocumented in this encounter Discontinued Medications Medication Sig Discontinue Reason Start Date End Date famotidine (PEPCID) 20 mg Take 1 Tab by mouth Therapy completed 03/201405/29/2014 tabletIndications: GERD 2 times daily. (gastroesophageal reflux disease) documented as of this encounter Historical Medications This list may reflect changes made after this encounter. Medication Sig Dispensed Refills Start Date End Date acetaminophen (TYLENOL) Take 650 mg by 0 325 mg tablet mouth every 4 hours as needed for Pain. ibuprofen (MOTRIN) 600 mg Take 600 mg by 0 tablet mouth every 6 hours as needed for Pain. ondansetron (ZOFRAN, Take 4 mg by mouth 0 08/10/2014 HYDROCHLORIDE,) 4 mg every 4 hours as tablet needed for Nausea. oxyCODONE (ROXICODONE) 5 Take 5 mg by mouth 0 08/10/2014 mg immediate release every 4 hours. tablet added in this encounter Care Teams Director Multimedia Relationship Specialty Start Date End Date Syed Leong MD PCP - General 04/08/09 0 documented as of this encounter
--- OUTSIDE RECORDS SUMMARY | 2022-02-27 01:26 | XMS_ITS | Encounter Summary ---
:1980 Author Organization [facility] Address [address] [place] [address] Care Team Providers Name Role Phone Syed Leong MD Primary Care Provider Unavailable Reason for Referral Consult (Routine) - Closed Specialty Diagnoses / Procedures Referred By Contact Refer red To Contact Diagnoses Recurrent sinusitis Nette Arteaga MD [address] [facility] [address] [place] [address] Referral ID Status Reason Start Date Expiration Date Visits V isits Requested Authorized [id number] Closed Specialty 10/14/2011 1 1 Services Required Question Answer Reason for Request: to Dr melgoza for recurrent sin usitis Comments Had seen him for vertigo and could not t olerate MRI, and has been worried about going back to see him adiology Services (Routine) - Closed Specialty Diagnoses / Procedures Referred By Contact Refer red To Contact Diagnoses Recurrent sinusitis Nette Arteaga MD Procedures CT SINUSES [address] [place] [address] [address] [place] [address] Referral ID Status Reason Start Date Expiration Date Visits Requ ested Visits Authorized [id number] Closed 10/14/2011 1 1 Reason for Visit Reason Comments Sinusitis x 3 weeks Encounter Details Date Type Department Care Team Description 10/14/2011 Office Visit [facility] Nette Arteaga nt sinusitis Family Medicine - MD Gigi (Primary D x) [address] [place] [address] Social History Tobacco Use Types Packs/Day Years Used Date Former Smoker 1 10 Quit: 03/25/20 09 Alcohol Use Standard Drinks/Week Comments Yes 0 (1 standard drink = 0.6 oz pure alcoho l) occ Sex Assigned at Date Recorded Male 03/11/2020 9:13 EDT documented as of this encounter Last Filed Vital Signs Vital Sign Reading Time Taken Comments Blood Pressure 126/94 10/14/2011 1719 EST Pulse 82 10/14/2011 1719 EST Temperature 36.8 ??C (98.2 ??F) 10/14/2011 1719 EST Respiratory Rate - - Oxygen Saturation - - Inhaled Oxygen Concentration - - Weight - - Height - - Body Mass Index - - documented in this encounter Ordered Prescriptions Prescription Sig Dispensed Refills Start Date End Date cefUROXime (CEFTIN) 500 mg Take 1 Tab by mouth 20 Tab 0 10/14/2011 11/12/2011 tablet 2 times daily. documented in this encounter Progress Notes Nette Arteaga MD - 10/14/2011 192 EST The patient is here because of concerns about sinusitis. He started 3 weeks ago with a sore throat and now has nasal congestion and finds that he has prominent discomfort in his upper neck and near theocciput. He has had some nasal discharge, slight throat clearing type cough. He states his chest is fine. He notes that over the past few years he has had recurrent bouts of sinusitis. They generallycome on after an upper respiratory infection and he has persistence of what sounds like postnasal drip and sore throat until finally treated with antibiotics. Initially he found amoxicillin was effective, but now amoxicillin is no longer effective. He was last treated with cefuroxime in August of 2011. The patient is a nonsmoker. He has young children, but they do not attend day care. He does not have a history of asthma. He thinks it has been the past few years that he has had these recurrent bouts. In looking at the chart, he has had about five courses of antibiotics over the past year for appar ent sinusitis. The patient would like to know what he might be able to do to prevent further recurrences. The other thing that is brought up in the history is that in January he was seen for asymmetrical hearing loss and vertigo by Dr Melgoza of ENT. The patient was referred for MRI scan but despite taking Valium(this actually made him feel hyper rather than calmer), he was unable to tolerate being in the MRI scanner. He states that they would have to knock me out to ever get him to go that machine again. Heis somewhat embarrassed by his reaction to the MRI scan and has been avoiding returning any calls toDr Melgoza to discuss this experience and has not kept any followup appointments. Patient Active Problem List Diagnoses ??? Left-sided tinnitus ??? Hearing loss in left ear No current outpatient prescriptions on file prior to visit. Family History Problem Relation Age of Onset ??? * Neg Hx ??? Allergic Rhinitis Neg Hx ??? Anesth Problems Neg Hx ??? Asthma Neg Hx ??? Bleeding Prob Neg Hx ??? Cancer Neg Hx ??? Hearing Loss Neg Hx ??? Migraines Neg Hx ??? Thyroid Disease Neg Hx ROS: some chills and sweats last night BP 126/94 Pulse 82 Temp(Src) 36.8 ??C (98.2 ??F) (Oral) He is well appearing. His ears are benign. Nares are congested. The right passage is narrower than the left. Pharynx is benign. Neck has no adenopathy and has full range of motion. Conjunctivae are notinjected. Lungs are clear with excellent air movement. ASSESSMENT: Possible sinusitis. The patient presents with possible recurrent chronic sinusitis. Examfindings are fairly benign but history is very suggestive of sinus disease. Spent time discussing etiologies, such as a blocked nasal passages, recurrent irritation or even symptoms, which suggest sinusitis but it could log turner there is no underlying infection. PLAN: After discussion, decided that we would refer for CT scan of the sinuses. I think he could tolerate this. He started on cefuroxime 500 mg b.i.d. I recommended sinus irrigation. He is referred to Dr Melgoza for further evaluation. documented in this encounter Plan of Treatment Scheduled Orders Name Type Priority Associated Diagnoses Order S chedule CT SINUSES Imaging Routine Recurrent sinusitis Ordered: 10/14/2011 Scheduled Referrals Name Type Priority Associated Diagnoses Order S chedule AMB CONSULT ENT Outpatient Referral Routine Recurrent sinusiti s Ordered: 10/14/2011 documented as of this encounter Visit Diagnoses Diagnosis Recurrent sinusitis - Primary Unspecified sinusitis (chronic) documented in this encounter Discontinued Medications Medication Sig Discontinue Reason Start Date End Date cefUROXime (CEFTIN) 500 Take 1 Tab by mouth 08/04/2011 10/14/2011 mg tablet 2 times daily. documented as of this encounter Care Teams Driver Utility Worker Relationship Specialty Start Date End Date Syed Leong MD PCP - General 04/08/09 0 documented as of this encounter
--- OUTSIDE RECORDS SUMMARY | 2022-02-27 01:26 | XMS_ITS | Encounter Summary ---
:1980 Author Organization [facility] Address [address] [place] [address] Care Team Providers Name Role Phone Syed Leong MD Primary Care Provider Unavailable Reason for Visit Reason Onset Date Comments Appointment Related 2011 Encounter Details Date Type Department Care Team Description 2011 Telephone [facility] ALESSANDRO - Saurabh Melgoza MD Appointment Related [place] [address] [place] [address] [place] [phone] (Wo rk) Social History Tobacco Use Types Packs/Day Years Used Date Former Smoker 1 10 Quit: 03/25/20 09 Alcohol Use Standard Drinks/Week Comments Yes 0 (1 standard drink = 0.6 oz pure alcoho l) occ Sex Assigned at Date Recorded Male 03/11/2020 9:13 EDT documented as of this encounter Miscellaneous Notes Telephone Encounter - Hai Suarez - 2011 0919 EDT I called and left a message. RE: CT Scan 12/15/2011 @1:15 checking in with registration with [facility] 1:00p FU: 12/22/2011 @ 09a here at the office. documented in this encounter Plan of Treatment Not on filedocumented as of this encounter Visit Diagnoses Not on filedocumented in this encounter Care Teams Administrative Receptionist Relationship Specialty Start Date End Date Syed Leong MD PCP - General 04/08/09 0 documented as of this encounter
--- OUTSIDE RECORDS SUMMARY | 2022-02-27 01:26 | XMS_ITS | Encounter Summary ---
:[address] [facility] Address [address] [place] [address] Care Team Providers Name Role Phone Syed Leong MD Primary Care Provider Unavailable Reason for Visit Reason Comments Nasal Congestion runny nose for 2 weeks produ cing dark drainage, no fever, +sore throat, no cough, no n/v/d-- child has similar sx's Rash r forearm with sm red itchy areas for 1 week Encounter Details Date Type Department Care Team Description 03/25/2010 Office Visit [facility] Song Winters (upper respiratory infection); Family Medicine - MD Tran [address] [place], [place] [address] [place] [address] [phone] Social History Tobacco Use Types Packs/Day Years Used Date Former Smoker Quit: 03/25/20 09 Sex Assigned at Date Recorded Male 03/11/2020 9:13 EDT documented as of this encounter Last Filed Vital Signs Vital Sign Reading Time Taken Comments Blood Pressure 101/76 03/25/2010 1627 EDT Pulse 77 03/25/2010 1627 EDT Temperature 36.9 ??C (98.4 ??F) 03/25/2010 1627 EDT Respiratory Rate 18 03/25/2010 1627 EDT Oxygen Saturation - - Inhaled Oxygen Concentration - - Weight 83.9 kg (185 lb) 03/25/2010 1627 EDT Height - - Body Mass Index - - documented in this encounter Progress Notes Song Winters - 04/19/2010 1122 EDT [facility] PROGRESS/FOLLOWUP NOTE - 03/25/2010 REASON FOR VISIT: URI and rash. SUBJECTIVE: Today history of ongoing cough, congestion. No significant pain other than mild sore throat. No shortness of breath. No fever, chills, similar symptoms. His son was ill and in office also. Otherwise in good health. He also notes rash over right arm, the volar aspect, scattered erythematouspapules, occasionally mildly pruritic. No unusual exposures that he can recall. . Does not seem to be spreading to other parts of the body. OBJECTIVE: Blood pressure 101/76, pulse 77, respirations 18, temp 98.4. TMs ash. Nose clear. Throat: Slight erythema, no exudate. Neck: No lymphadenopathy. Chest: Clear to auscultation. Cardiovascular: Regular rate and rhythm, no murmur. Abdomen: Nontender. Skin exam: Scattered rare erythematous papules on right, none on left. ASSESSMENT: 1. URI. PLAN: Supportive care, follow up if not improving. Consider antibiotics if not improving over the next week or symptoms should worsen. 2. Rash, scattered erythematous papules, unclear cause. Question if this is a variant of a contact dermatitis. I offered triamcinolone cream; however, he is content to use zdxb-chg-pabuoip cortisone cream. He will follow up if not improving. The patient was verbally educated on rash. There were no barriers to learning and the patient verbalized understanding. Electronically Signed by Song Winters MD 04/19/2010 11:22 Song Winters MD - Song Winters MD - JOHANNA Job ID: SM Doc ID: [id number] Ext Doc ID: [id number] cc: Song Ann - 03/25/2010 6694 EDT This office note has been dictated. documented in this encounter Plan of Treatment Not on filedocumented as of this encounter Visit Diagnoses Diagnosis URI (upper respiratory infection) Acute upper respiratory infections of un specified site Rash Rash and other nonspecific skin eruption documented in this encounter Discontinued Medications Medication Sig Discontinue Reason Start Date End Date amoxicillin (AMOXIL) 500 Take 2 Caps by 12/27/2009 0 03/25/2010 mg capsule mouth 2 times daily. documented as of this encounter Care Teams Lead Machinist Relationship Specialty Start Date End Date Syed Leong MD PCP - General 04/08/09 0 documented as of this encounter
--- OUTSIDE RECORDS SUMMARY | 2022-02-27 01:26 | XMS_ITS | Encounter Summary ---
:1980 Author Organization [facility] Address [address] [place] [address] Care Team Providers Name Role Phone Syed Leong MD Primary Care Provider Unavailable Reason for Visit Reason Comments Sinusitis amoxicillin was not effectiv e -had keflex at home and it worked great and got better but only had a pa rtial dose -sick now Encounter Details Date Type Department Care Team Description 08/04/2011 Office Visit [facility] Syed Leong is, acute Family Medicine - MD Sonya (Primary D x) [place] [address] Social History Tobacco Use Types Packs/Day Years Used Date Former Smoker 1 10 Quit: 03/25/20 09 Alcohol Use Standard Drinks/Week Comments Yes 0 (1 standard drink = 0.6 oz pure alcoho l) occ Sex Assigned at Date Recorded Male 03/11/2020 9:13 EDT documented as of this encounter Last Filed Vital Signs Vital Sign Reading Time Taken Comments Blood Pressure 126/94 08/04/2011 1555 EST Pulse 76 08/04/2011 1555 EST Temperature - - Respiratory Rate - - Oxygen Saturation - - Inhaled Oxygen Concentration - - Weight 87.5 kg (193 lb) 08/04/2011 1555 EST Height - - Body Mass Index 29.35 01/15/2011 1417 EDT documented in this encounter Ordered Prescriptions Prescription Sig Dispensed Refills Start Date End Date cefUROXime (CEFTIN) 500 mg Take 1 Tab by mouth 20 Tab 0 08/04/2011 10/14/2011 tablet 2 times daily. documented in this encounter Progress Notes Syed Leong MD - 08/04/2011 3317 EST Flavio is here because of a respiratory infection. He was started on amoxicillin July 21 for a sinus infection that had been going on for about 2 weeks with discolored nasal secretions, sinus headache and pressure. He took the amoxicillin for a number of days but then switched over to some Ceftin that he had left over, took that for about four or five days, felt much better on the Ceftin, went back to finish the amoxicillin but actually got worse again. He is having head congestion, nasal drainage, postnasal drip, some cough, quite a sore throat. No earaches, fevers, chills, shortness of breath. OBJECTIVE: BP 126/94 Pulse 76 Wt 87.544 kg (193 lb) . He looks well. He has a hyponasal voice. TMs and canals are normal. Oropharynx normal. Lungs are clear. ASSESSMENT: Probably does have a persistent sinusitis. I would give him a full course of the Ceftin to see if that works. PLAN: 1. Discussed the inappropriate use of the antibiotics as noted above. 2. Ceftin 500 mg b.i.d. for 10 days. 3. Contact us if worsening or persisting symptoms. documented in this encounter Plan of Treatment Not on filedocumented as of this encounter Visit Diagnoses Diagnosis Sinusitis, acute - Primary Acute sinusitis, unspecified documented in this encounter Discontinued Medications Medication Sig Discontinue Reason Start Date End Date amoxicillin (AMOXIL) 500 Take 2 Caps by mouth Therapy completed 04/201108/04/2011 mg capsule 2 times daily. DIAZepam (VALIUM) 5 mg Take 1 Tab by mouth. Therapy completed 01/2808/04/2011 tablet Take 1 tablet by mouth 30 minutes prior to procedure. Bring the other tablet to procedure can be taken if needed at that time. Do not drive while taking this medication. levofloxacin (LEVAQUIN) Take 1 Tab by mouth Therapy completed 01/1608/04/2011 500 mg tablet daily. documented as of this encounter Care Teams Stock Crane Operator Relationship Specialty Start Date End Date Syed Leong MD PCP - General 04/08/09 0 documented as of this encounter
--- OUTSIDE RECORDS SUMMARY | 2022-02-27 01:26 | XMS_ITS | Encounter Summary ---
:1980 Author Organization [facility] Address [address] [place] [address] Care Team Providers Name Role Phone Syed Leong MD Primary Care Provider Unavailable Reason for Referral Radiology Services (Routine) - Closed Specialty Diagnoses / Procedures Referred By Contact Refer red To Contact Diagnoses Vertigo Sensorineural hearing loss, unilateral Christopher Melgoza MD Procedures MRI HEAD [address] [phone] Referral ID Status Reason Start Date Expiration Date Visits Requ ested Visits Authorized [id number] Closed 01/15/2011 1 1 Reason for Visit Reason Comments Dizziness vertigo at least a year ago approx 1 month gets a bout of vertigo induced by high pitch noise last up to 10 seconds symptoms mild to severe. last episode at least one month a go last 2 weeks almost constant. left ear has tinnitus intermittently with a high pitch Encounter Details Date Type Department Care Team Description 01/15/2011 Office Visit [facility] Unknown, Prov MD petrona Sensorineural hearing loss, unilateral; ENT - [place] Christopher Melgoza MD [address] [facility] [address] [phone] Vertigo [address] [place] [address] Social History Tobacco Use Types Packs/Day Years Used Date Former Smoker 1 10 Quit: 03/25/20 09 Alcohol Use Standard Drinks/Week Comments Yes 0 (1 standard drink = 0.6 oz pure alcoho l) occ Sex Assigned at Date Recorded Male 03/11/2020 9:13 EDT documented as of this encounter Last Filed Vital Signs Vital Sign Reading Time Taken Comments Blood Pressure 140/104 01/15/2011 1417 EDT Pulse 87 01/15/2011 1417 EDT Temperature - - Respiratory Rate 14 01/15/2011 1417 EDT Oxygen Saturation - - Inhaled Oxygen Concentration - - Weight 88.5 kg (195 lb) 01/15/2011 1417 EDT Height 172.7 cm (5' 8) 01/15/2011 1417 EDT Body Mass Index 29.65 01/15/2011 1417 EDT documented in this encounter Progress Notes Christopher Melgoza MD - 01/15/2011 1432 EDT This office note has been dictated. documented in this encounter Consult Notes Christopher Melgoza MD - 01/23/2011 1031 EDT [facility] - 01/15/2011 Syed Leong MD [address], [address] [place] [address] Leong: History of Present Illness: A 29-year-old male with a 1-year history of mild intermittent vertigo. It occurs approximately once per month, usually lasting only 5 seconds, but can last up to 15 seconds.No history of head injury, although the vertigo can sometimes be induced by loud noise. He has a long history of tinnitus in the left ear as well as mild hearing loss that is gradually becoming worse. Past Medical History: Previous surgeries include bilateral inguinal hernia repair. Family History: Noncontributory. Social History: The patient is a former smoker, quit in 2008. Medications: He has drug reaction to NAPROXEN. Current Medication: Ceftin. Review of systems: Otherwise, negative for multiple system reviews except for back pain. Physical exam: General: Well-developed, well-nourished, cooperative adult male, in no acute distress. Normal voice. Vital signs: Height 68 inches, weight 195. Blood pressure 140/104, pulse 87, respirations 14. No reportable pain. The face is normal without lesions. No tenderness. Salivary glands are normal. Facial strength is symmetric. Eye exam is normal. Ears: External ears are normal. Canals are clear. The tympanic membranes are normal. An audiogram was performed, which reveals normal hearing in the right. In the left, asymmetric sensorineural hearing loss especially at 1000 Hz and 4000 Hz. SRTs are 15 dB in the right, 25 in the left,excellent word discrimination and normal impedance. Nose: Nasal dorsum is midline. The airway is patent. There is right anterior nasoseptal deviation. Oral cavity and posterior pharynx is clear. Neck: No pathologic lymphadenopathy. Trachea is midline. Thyroid is normal. Chest is clear to auscultation.Heart: Regular rate and rhythm. Impression: Left asymmetric sensorineural hearing loss and vertigo, rule out retrocochlear pathology. Plan: Will obtain an MRI scan with gadolinium. Follow up after MRI. Sincerely, Electronically Signed by Christopher Melgoza MD 01/23/2011 10:31 Christopher Melgoza MD - Christopher Melgoza MD - [facility] Job ID: Doc ID: [id number] [facility] Doc ID: [id number] cc: Syed Leong MD documented in this encounter Miscellaneous Notes Scanned Note-Null - Alexis, Building Construction Inspector - 01/20/2011 1103 EDT documented in this encounter Plan of Treatment Scheduled Orders Name Type Priority Associated Diagnoses Order S chedule MRI HEAD Imaging Routine Vertigo Ordered: 01/15/2011 Sensorineural hearing loss, unilateral documented as of this encounter Visit Diagnoses Diagnosis Sensorineural hearing loss, unilateral Vertigo Dizziness and giddiness documented in this encounter Care Teams Lube Technician Relationship Specialty Start Date End Date Syed Leong MD PCP - General 04/08/09 0 documented as of this encounter
--- OUTSIDE RECORDS SUMMARY | 2022-02-27 01:26 | XMS_ITS | Encounter Summary ---
:1980 Author Organization [facility] Address [address] [place] [address] Care Team Providers Name Role Phone Syed Leong MD Primary Care Provider Unavailable Encounter Details Date Type Department Care Team Description 06/24/2007 Before PRISM Converted [facility] - Syed Leong, Visit (Sharon) Maple conversion MD [address] [place] [address] Social History Tobacco Use Types Packs/Day Years Used Date Never Assessed Sex Assigned at Date Recorded Male 03/11/2020 9:13 EDT documented as of this encounter Progress Notes Syed Leong MD - 07/24/2009 1447 EST [facility] PROGRESS/FOLLOWUP NOTE - 06/24/2007 SUBJECTIVE He is here with left ear ringing for at least two months. It is constant. He has noticed some loss of hearing in that ear. 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 He has only recently started using hearing protection. He did a lot of hunting and firearms when he was a teenager. He did have one episode recently of some vertigo, but this is short lived and has not returned. He thought there was some blood from the left ear today, a small amount. There has been no pain. He has not felt sick. There is no popping noted. OBJECTIVE Both TMs and canals appear normal. Quijano lateralizes to the right. Arlene is normal bilaterally. He does have diminished hearing somewhat in the left ear. ASSESSMENT I suspect this is nerve damage causing tinnitus and some hearing loss, probably noise exposure induced. PLAN 1. Audiology evaluation. 2. The patient was verbally educated on noise induced hearing loss, causes of tinnitus, hearing protection. There were no barriers to learning and the patient verbalized understanding. Signed by Syed Leong MD 06/28/2007 13:26 Syed Leong MD P Job ID [id number] T: 10:13 A/jg Doc ID [id number] cc: P Job ID [id number] A/jg Doc ID [id number] cc: documented in this encounter Plan of Treatment Not on filedocumented as of this encounter Visit Diagnoses Not on filedocumented in this encounter Care Teams Trestle Builder Relationship Specialty Start Date End Date Syed Leong MD PCP - General 04/08/09 0 documented as of this encounter
--- OUTSIDE RECORDS SUMMARY | 2022-02-27 01:26 | XMS_ITS | Encounter Summary ---
:1980 Author Organization [facility] Address [address] [place] [address] Care Team Providers Name Role Phone Syed Leong MD Primary Care Provider Unavailable Reason for Visit Reason Onset Date Comments Sinusitis 01/16/2011 Encounter Details Date Type Department Care Team Description 01/16/2011 Telephone [facility] Syed Leong MD Sinusitis Medicine - [address] [address] Social History Tobacco Use Types Packs/Day Years Used Date Former Smoker 1 10 Quit: 03/25/20 09 Alcohol Use Standard Drinks/Week Comments Yes 0 (1 standard drink = 0.6 oz pure alcoho l) occ Sex Assigned at Date Recorded Male 03/11/2020 9:13 EDT documented as of this encounter Ordered Prescriptions Prescription Sig Dispensed Refills Start Date End Date levofloxacin (LEVAQUIN) Take 1 Tab by mouth 10 Tab 0 02/201108/04/2011 500 mg tablet daily. documented in this encounter Miscellaneous Notes Telephone Encounter - Tania Waldrop RN - 01/16/2011 1146 EDT notified Telephone Encounter - Syed Leong MD - 01/16/2011 1138 EDT Levaquin ordered. If this doesn't help, he needs OV. elephone Encounter - Aisha Torres - 01/16/2011 0912 EDT Patient's called to say the Cefuroxine gave him diarrhea and a sore throat. He has stopped taking it per Nette. Dr Melgoza addressed his ear problem but not the sinus. Patient's sore throat is better but he is still congested. What's the next step? documented in this encounter Plan of Treatment Not on filedocumented as of this encounter Visit Diagnoses Diagnosis Sinusitis, acute - Primary Acute sinusitis, unspecified documented in this encounter Care Teams Glost Tile Shader Relationship Specialty Start Date End Date Syed Leong MD PCP - General 04/08/09 0 documented as of this encounter
--- OUTSIDE RECORDS SUMMARY | 2022-02-27 01:26 | XMS_ITS | Encounter Summary ---
:1980 Author Organization [facility] Address [address] [place] [address] Care Team Providers Name Role Phone Syed Leong MD Primary Care Provider Unavailable Encounter Details Date Type Department Care Team Description 05/28/2014 Historical Results [facility] - Alejo Shoemaker, Only [facility] [address] [facility] [address] [place] [address] [place], [place] [phone] (Wo rk) Social History Tobacco Use Types [...] Name Priority Date/Time Associated Diagnosis Comme nts SURGICAL PATHOLOGY Routine 05/28/2014 Results f or this procedure are i n the results section . documented in this encounter Results SURGICAL PATHOLOGY (05/28/2014) Specimen Narrative [facility] - 014 15:25 EDT Name: THAFLAVIO Jesse ?: [birth year] ?Age/Sex: 38/M ?Unit#: [id number] ? Loc: 2N ?Status: DIS Jodee ?? Reg Date: 05/27/14 ? Pt.Phone Number : ? Specimen: [id number] ? STA TUS: SOUT ?Spec Date:05/28/14 ? Physician Copies: ?Alejo Shoemaker MD ?? Tissues: A ?? Gastrointestinal Tract (AP PENDIX) ?Syed Leong MD ?? CPT: 95156 ?? Units: ??1 ?FINAL DIAGNOSIS ? Appendix, appendectomy; ? - Mild reactive lymphoid hyperpla lana, focal intraluminal acute inflammation, ? and sparse granulocytes infilt rating the muscularis, suggestive of early ? acute appendicitis. ? GROSS DESCRIPTION ? Received in formalin labeled with the patient's name and appendix is a ? vermiform appendix with attached mesoappendix. ??The appendix has a length of ? 8.4 cm. ??Surgical clips are pres ent along the resection margin which has a ? diameter of 2.5 cm. ??The mid sec tion of the appendix measures 0.7 cm in ? diameter and the distal tip 0.6 c m. ??The mesoappendix measures up to 2.5 cm ? wide x 1 cm thick. ??The serosal surface is pale daniel-bush, smooth and ? glistening. ??No exudates or perf oration sites are identified. ??Sectioning shows ? focal mild thickening of the appe ndix wall. ??The lumen contains soft brown ? fecal material. ??No suspicious m asses are identified. ??r.s. 1. ??CP ?? PREOP DX/CLINICAL HISTORY ?ACUTE APPENDICITIS Signed ____(signature on file)____ Gloria Knight M.D. 05/30/14 By the signature above, the attending ph ysician certifies that he/she has personally conducted a gross and/or microscopic exa mination of the described specimens and rendered or confirmed the above diagnosi s. Test Performed by [facility], [address] [place] [address] Bulk Folder: Gloria Workman MD PHD Performing Organization Address City/State/ZIP Code Phon e Number [facility] [address] [place] [address] LAB documented in this encounter Visit Diagnoses Not on filedocumented in this encounter Care Teams Area Loss Prevention Manager Relationship Specialty Start Date End Date Syed Leong MD PCP - General 04/08/09 0 documented as of this encounter
--- OUTSIDE RECORDS SUMMARY | 2022-02-27 01:26 | XMS_ITS | Encounter Summary ---
:1980 Author Organization Address [address] [place] [address] Care Team Providers Name Role Phone Syed Leong MD Primary Care Provider Unavailable Reason for Visit Reason Onset Date Comments Other 12/26/2009 Encounter Details Date Type Department Care Team Description 12/26/2009 Telephone [facility] Syed Leong MD Other Medicine - [address] [address] Social History Tobacco Use Types Packs/Day Years Used Date Never Assessed Sex Assigned at Date Recorded Male 03/11/2020 9:13 EDT documented as of this encounter Miscellaneous Notes Telephone Encounter - Dona Stewart - 12/26/2009 1210 EDT Please call pt s w/answer [phone] He had an episode couple days ago, shaky, Glucose test tomorrow He said he wanted to talk toyou about it Not feeling well Sugar low? Pt said he was leaving for work at 1:00 i advised him all were at lunch between 12-1 documented in this encounter Plan of Treatment Not on filedocumented as of this encounter Visit Diagnoses Not on filedocumented in this encounter Care Teams System Safety Engineer Relationship Specialty Start Date End Date Syed Leong MD PCP - General 04/08/09 0 documented as of this encounter
--- OUTSIDE RECORDS SUMMARY | 2022-02-27 01:26 | XMS_ITS | Encounter Summary ---
:1980 Author Organization [facility] Address [address] [place] [address] Care Team Providers Name Role Phone Syed Garcia MD Primary Care Provider Unavailable Reason for Visit Reason Onset Date Comments Sinusitis 10/31/2012 and other issues Encounter Details Date Type Department Care Team Description 10/31/2012 Telephone [facility] Syed Garcia, Slim quijano (and other Family Medicine - MD issues ) [address], [place] [address] Social History Tobacco Use Types Packs/Day Years [...] 1 Tab by mouth 20 Tab 0 11/10/2012 (AUGMENTIN) 875-125 mg per every 12 hours for tabletIndications: 10 days. Sinusitis, acute documented in this encounter Miscellaneous Notes Telephone Encounter - Dona Stewart - 10/31/2012 1307 EST Pt notified Telephone Encounter - Syed Garcia MD - 10/31/2012 1041 EST antibiotics I sent the Rx to the pharmacy. Please call patient. elephone Encounter - Dona Stewart - 10/31/2012 0921 EST Pt saw Rodríguez a little while ago for sinus infection, he then spoke with dr garcia and he said he wastold to call back if he was not any better. His sx's are, 3 or 4 weeks, sore throat nose congestion,lot worse in the last week, keeping him up at night, no fever, documented in this encounter Plan of Treatment Not on filedocumented as of this encounter Visit Diagnoses Diagnosis Sinusitis, acute - Primary Acute sinusitis, unspecified documented in this encounter Care Teams Manager Pulmonary Relationship Specialty Start Date End Date Syed Garcia MD PCP - General 04/08/09 0 documented as of this encounter
--- OUTSIDE RECORDS SUMMARY | 2022-02-27 01:26 | XMS_ITS | Encounter Summary ---
:1980 Author Organization [facility] Address [address] [place] [address] Care Team Providers Name Role Phone Syed Leong MD Primary Care Provider Unavailable Encounter Details Date Type Department Care Team Description 07/05/2009 Abstract [facility] Syed Leong MD [address] [id number] Social History Tobacco Use Types Packs/Day Years Used Date Never Assessed Sex Assigned at Date Recorded Male 03/11/2020 9:13 EDT documented as of this encounter Plan of Treatment Not on filedocumented as of this encounter Visit Diagnoses Not on filedocumented in this encounter Care Teams Spray Drier Operator Helper Relationship Specialty Start Date End Date Syed Leong MD PCP - General 04/08/09 0 documented as of this encounter
--- OUTSIDE RECORDS SUMMARY | 2022-02-27 01:26 | XMS_ITS | Encounter Summary ---
:1980 Author Organization [facility] Address [address] [place] [address] Care Team Providers Name Role Phone Syed Leong MD Primary Care Provider Unavailable Encounter Details Date Type Department Care Team Description 08/24/2007 Before PRISM Converted [facility] - Mark Melgoza, Visit ([place]) Christine soto MD [address] [place] [id number] [place] [address] [address] [place] [address] Social History Tobacco Use Types Packs/Day Years Used Date Never Assessed Sex Assigned at Date Recorded Male 03/11/2020 9:13 EDT documented as of this encounter Consult Notes Christopher Melgoza MD - 07/21/20092002 EST [facility] - 08/24/2007 Syed Leong MD [address] [place] [id number] Leong: Chief complaint: Tinnitus. History of present illness: This is a 26-year-old male with a history of left ear tinnitus, worse atnight, constant for the past six months, has been getting worse. He has a long history of noise exposure including shooting guns right handed. 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 Had not been wearing hearing protection. He was advised to do so and since he has been wearing his earplugs more frequently, his tinnitus has markedly improved and he is now nearly asymptomatic and is able to sleep well. The symptoms are now of mild severity, intermittent, no associated vertigo, did have occasional painful tinnitus but no longer. Past medical history: The patient denies any other medical illnesses Pat surgical history: No previous surgeries. Medications: He is taking a current antibiotic for a sinus infection, otherwise not taking any prolonged medications. Allergies: He has no known drug allergies. Family history: Noncontributory. 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 Review of systems is significant for back pain, otherwise negative for multiple system reviews. Physical exam: General: Well-developed, well-nourished, cooperative adult male in no acute distress.Normal voice. Height: Five feet, eight inches, weight 180 pound. Vital signs: Blood pressure 130/90,pulse 68, respirations 14, temperature 98.7. The face is normal without lesions, no tenderness to palpation. Salivary glands are normal. Facial strength is symmetric. Eye exam is normal. Ears: Externalears are normal. Canals are clear. Tympanic membranes are normal. Hearing is intact bilaterally. An audiogram was performed which reveals a left high frequency noise induced hearing loss. Speech information receptionist thresholds are 10 decibels on the right and left, excellent word discrimination and normal impedan ce. Nose: Nasal dorsum is midline, the airway is patent. Oral cavity is clear. Posterior pharynx is clear. Neck: No pathologic lymphadenopathy. Trachea is benign, thyroid is normal. Chest is clear to auscultation. Heart regular rate and rhythm. Indirect mirror exam reveals normal nasopharynx, hypopharynx, and larynx. Piriform sinuses are clear. 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 Plan: Patient was encouraged to wear hearing protection. Recommend follow up repeat audiogram in oneyear or p.r.n. Instruction material on tinnitus was also given to the patient and discussed. Sincerely, Signed by Christopher Melgoza MD 08/30/2007 17:08 Christopher Melgoza MD - Christopher Melgoza MD - duarte Job ID: [id number] Doc ID: [id number] cc: Syed Leong MD documented in this encounter Plan of Treatment Not on filedocumented as of this encounter Visit Diagnoses Not on filedocumented in this encounter Care Teams Foreclosure Clerk Relationship Specialty Start Date End Date Syed Leong MD PCP - General 04/08/09 0 documented as of this encounter
--- OUTSIDE RECORDS SUMMARY | 2022-02-27 01:26 | XMS_ITS | Encounter Summary ---
:1980 Author Organization [facility] Address [address] [place] [address] Care Team Providers Name Role Phone Syed Leong MD Primary Care Provider Unavailable Reason for Visit Reason Onset Date Comments Allergic Reaction 08/21/2013 Encounter Details Date Type Department Care Team Description 08/21/2013 Telephone [facility] Family Syed Leong MD Allergic Reaction Medicine - [address] [address] Social History Tobacco Use Types Packs/Day Years Used Date Current Every Day Smoker Cigarettes 1 10 Terrence t: 03/25/2009 Smokeless Tobacco: Never Used Alcohol Use Standard Drinks/Week Comments Yes 0 (1 standard drink = 0.6 oz pure alcoho l) occ Sex Assigned at Date Recorded Male 03/11/2020 9:13 EDT documented as of this encounter Ordered Prescriptions Prescription Sig Dispensed Refills Start Date End Date doxycycline (MONODOX) 100 Take 1 Cap by mouth 20 Cap 0 1 10/22/2012 08/31/2013 mg capsuleIndications: 2 times daily for Sinusitis 10 days. sulfamethoxazole-trimethop Take 1 Tab by mouth 20 Tab 0 08/21/2013 08/31/2013 rim 2 times daily for (BACTRIM/C0-TRIMOXAZOLE 10 days. DS) 800-160 mg per tabletIndications: Sinusitis documented in this encounter Miscellaneous Notes Telephone Encounter - Tania Waldrop RN - 08/21/2013 1116 EST Pharmacy notified to put sulfa and Augmentin on allergy list and to only dispense the doxy. notified med was called into pharmacy elephone Encounter - Tyler Berman PA-C - 08/21/2013 1110 EST Different antibiotic to pharmacy. Please inform the patient. Telephone Encounter - Tania Waldrop RN - 08/21/2013 1014 EST said she knows he is allergic to sulfa and has told providers in the past-I have added to allergy list-please order something else elephone Encounter - Tyler Berman PA-C - 08/21/2013 1010 EST I sent the Rx to the pharmacy. Please inform the patient. Telephone Encounter - Tania Waldrop RN - 08/21/2013 1002 EST Added to allergy list -please advise on medication replacement -patient still has sinus symptoms -nofurther swelling from the medication at this time elephone Encounter - Dali Luu - 08/21/2013 0844 EST Patients called stating that her came in last week for a sinus infection and he was given augmentin. He had swelling of the throat and tongue pain so he stopped the medicaiton. The swelling went down. He still has the sinus infection symptoms. [facility] pharmacy. Please call Joanie and let her know if he should picking tech another prescription. documented in this encounter Plan of Treatment Not on filedocumented as of this encounter Visit Diagnoses Diagnosis Sinusitis - Primary Unspecified sinusitis (chronic) documented in this encounter Care Teams Dairy Quality Assurance Officer Relationship Specialty Start Date End Date Syed Leong MD PCP - General 04/08/09 0 documented as of this encounter
--- OUTSIDE RECORDS SUMMARY | 2022-02-27 01:26 | XMS_ITS | Encounter Summary ---
:1980 Author Organization [facility] Address [address] [place] [address] Care Team Providers Name Role Phone Syed Leong MD Primary Care Provider Unavailable Encounter Details Date Type Department Care Team Description 05/21/2006 Before PRISM Converted [facility] - Syed Leong, Visit ([place]) Mapmanda conversion MD [address] [place] [address] Social History Tobacco Use Types Packs/Day Years Used Date Never Assessed Sex Assigned at Date Recorded Male 03/11/2020 9:13 EDT documented as of this encounter Progress Notes Syed Leong MD - 09/19/2009 0834 EST [facility] PROGRESS/FOLLOWUP NOTE - 05/21/2006 S:has had occasional right testicular soreness and sometimes some swelling. In the last 2 days, he has had a constant ache. He has had these problems on and off for years. In 1985at 4 years of age, he had bilateral inguinal hernias repaired. He is not having any difficulty urinating, and no bulges have been noted. O: There is some tenderness on palpation of the right epididymis. There is no swelling or redness noted. The testicle itself feels normal. No hernias are felt on examination, either standing or lying, with valsalva. A: I do not think we are talking about hernia, which is what his concern was. It is possible he has had some low-grade, intermittent epidThere is no sign of testicular cancer. P: 1. Reassurance. 2. Contact us if swelling, redness, or pain returns. Signed by Syed Leong MD 05/27/2006 16:57 Marcello Bennett MD Syed Leong MD - Syed Leong MD P - lt Job ID: [id number] Document ID: [id number] cc: documented in this encounter Plan of Treatment Not on filedocumented as of this encounter Visit Diagnoses Not on filedocumented in this encounter Care Teams Clinical Registered Nurse Relationship Specialty Start Date End Date Syed Leong MD PCP - General 04/08/09 0 documented as of this encounter
--- OUTSIDE RECORDS SUMMARY | 2022-02-27 01:26 | XMS_ITS | Encounter Summary ---
:1980 Author Organization [facility] Address [address] [place] [address] Care Team Providers Name Role Phone Syed Leong MD Primary Care Provider Unavailable Reason for Visit Reason Comments Cough Encounter Details Date Type Department Care Team Description 07/05/2010 Office Visit [facility] Syed Leong Bronchi tis (Primary Dx) Family Medicine - MD Sonya [address] [address] Social History Tobacco Use Types Packs/Day Years Used Date Former Smoker Quit: 03/25/20 09 Sex Assigned at Date Recorded Male 03/11/2020 9:13 EDT documented as of this encounter Ordered Prescriptions Prescription Sig Dispensed Refills Start Date End Date azithromycin (ZITHROMAX) Take 1 Tab by mouth. 6 Tab 0 1 12/01/2010 250 mg tablet Take 2 tablets (500 mg) on Day 1, followed by 1 tablet (250 mg) once daily on Days 2 through 5. documented in this encounter Progress Notes Syed Leong MD - 07/13/2010 0624 EDT [facility] PROGRESS/FOLLOWUP NOTE - 07/05/2010 SUBJECTIVE: He is here with an ongoing cough for 4 weeks or so. He was initially treated with amoxicillin, but did not get better and was getting worse over 4 days including cough, fevers, chills, and was switched to Ceftin, which he took for 10 days. He has not resolved this infection as yet. He continues to have a cough, which is deep and productive of discolored sputum. He has now developed a hoarse voice, sore throat. He is not having any sinus congestion, nasal drainage, postnasal drip. He still has some chills, no fever. He is not allergic to any antibiotics. OBJECTIVE: He has a hoarse voice, a loose cough. Does not look distressed. His TMs and canals are normal. Oropharynx normal. Neck: No adenopathy. Lungs are clear. ASSESSMENT: Likely bacterial laryngitis/bronchitis, bacteria may have been missed by the previous antibiotics, it may be more a atypical. PLAN: 1. Zithromax Z-Enoch. 2. Continue [id number]-[id number] symptomatic treatment. 3. Contact us if worsening or persistent symptoms. Electronically Signed by Syed Leong MD 07/13/2010 06:24 Syed Leong MD - Syed Leong MD - [place] Job ID: SM Doc ID: [id number] Ext Doc ID: [id number] cc: taSyed ramirez MD - 07/05/2010 0919 EDT This office note has been dictated. documented in this encounter Plan of Treatment Not on filedocumented as of this encounter Visit Diagnoses Diagnosis Bronchitis - Primary Bronchitis, not specified as acute or ch ronic documented in this encounter Care Teams Contract Writer Relationship Specialty Start Date End Date Syed Leong MD PCP - General 04/08/09 0 documented as of this encounter
--- OUTSIDE RECORDS SUMMARY | 2022-02-27 01:26 | XMS_ITS | Encounter Summary ---
:1980 Author Organization [facility] Address [address] [place] [address] Care Team Providers Name Role Phone Syed Leong MD Primary Care Provider Unavailable Reason for Visit Reason Comments URI on going cold sxs for a coup le weeks Encounter Details Date Type Department Care Team Description 08/18/2013 Office [address] [facility] Tyler Berman itis (Primary Dx); Family Medicine - R, [place] [address] Social History Tobacco Use Types Packs/Day Years [...] Reading Time Taken Comments Blood Pressure 142/80 08/18/2013 1534 EST Pulse 88 08/18/2013 1534 EST Temperature 36.7 ??C (98 ??F) 08/18/2013 1534 EST Respiratory Rate - - Oxygen Saturation - - Inhaled Oxygen Concentration - - Weight 86.5 kg (190 lb 12.8 oz) 08/18/2013 1534 EST Height - - Body Mass Index 28.38 11/29/2012 1403 EDT documented in this encounter Ordered Prescriptions Prescription Sig Dispensed Refills Start Date End Date amoxicillin-clavulanate Take 1 Tab by mouth 20 Tab 0 02/201304/02/2015 (AUGMENTIN) 875-125 mg 2 times daily for 10 per tabletIndications: days. Sinusitis varenicline (CHANTIX) 1 Take 1 tablet twice 60 Tab 2 10/18/2013 mg tabletIndications: daily after the Tobacco dependence seven days of using the.5 mg tablets. varenicline (CHANTIX) 0.5 Take 1 tablet PO 11 Tab 0 12/0 02/201310/18/2013 mg tabletIndications: daily X 3 days, then Tobacco dependence 1 tablet PO twice daily times 4 days then stop and initiate 1 mg tablets. documented in this encounter Progress Notes Tyler Berman PA-C - 08/18/2013 1601 EST Mr Hamm is here today with a complaint of persistent respiratory infection, now going on more than2 weeks. He has continued nasal congestion, a lot of pressure over the face, periodic headaches and nonproductive cough. He has not had any fever or chills. Not had any chest pain or shortness of breath. He periodically gets sinus infections. He has been rinsing his sinuses out as he usually does whenhe gets a cold and this has prevented many of the infections, but has not prevented the current one.In addition, he is interested in trying Chantix for smoking cessation. Has no history of depression.Has unsuccessfully used nicotine patches in the past. He has been smoking now about 16 years. OBJECTIVE: Temperature is 98, his blood pressure 142/80, pulse is 88. He weighs 190 pounds, BMI of 28. He is well appearing. ENT exam: TMs are normal. He has marked nasal congestion, a lot of pressure over the maxillary sinuses. Some posterior pharyngeal erythema with noticeable purulent drainage. No cervical adenopathy. His lungs are clear. Heart is regular. ASSESSMENT AND PLAN: 1. Persistent URI, now with secondary sinusitis. Prescribing Augmentin 875 b.i.d. x10 days #20. Continue nasal steam or sinus rinses as needed. Follow up if necessary. 2. Tobacco dependence. Discussed Chantix at length. The patient warned about possible side effect ofdepression. He is interested in starting the Chantix, but is unsure about when he would like to start, so a printed prescription is given for both the starting dose of 0.5 mg and maintenance dose of 1 mg tablets. The patient will follow up if needed. documented in this encounter Plan of Treatment Not on filedocumented as of this encounter Visit Diagnoses Diagnosis Sinusitis - Primary Unspecified sinusitis (chronic) Tobacco dependence Tobacco use disorder documented in this encounter Discontinued Medications Medication Sig Discontinue Reason Start Date End Date amoxicillin-clavulanate Take 1 Tab by mouth Reorder 04/26/2013 08/18/2013 (AUGMENTIN) 875-125 mg 2 times daily for per tablet 10 days. documented as of this encounter Care Teams Wares Sorter Relationship Specialty Start Date End Date Syed Leong MD PCP - General 04/08/09 0 documented as of this encounter
--- OUTSIDE RECORDS SUMMARY | 2022-02-27 01:26 | XMS_ITS | Encounter Summary ---
:1980 Author Organization [facility] Address [address] [place] [address] Care Team Providers Name Role Phone Syed Leong MD Primary Care Provider Unavailable Reason for Visit Reason Comments Pharyngitis has a sore throat and sinus congestion,has frequent sinus infections,has an appt with Dr Rhona billingsley [facility]. Encounter Details Date Type Department Care Team Description 11/12/2011 Office Visit [facility] Gus Crenshaw Sinus itis, acute Family Medicine - MD Yanni (Primary D x) [place] [address] Social History Tobacco Use Types Packs/Day Years Used Date Former Smoker 1 10 Quit: 03/25/20 09 Alcohol Use Standard Drinks/Week Comments Yes 0 (1 standard drink = 0.6 oz pure alcoho l) occ Sex Assigned at Date Recorded Male 03/11/2020 9:13 EDT documented as of this encounter Last Filed Vital Signs Vital Sign Reading Time Taken Comments Blood Pressure 128/70 11/12/2011 0915 EST Pulse 100 11/12/2011 0915 EST Temperature 37 ??C (98.6 ??F) 11/12/2011 0915 EST Respiratory Rate - - Oxygen Saturation - - Inhaled Oxygen Concentration - - Weight - - Height - - Body Mass Index - - documented in this encounter Patient Instructions Patient InstructionsGus Crenshaw MD - 11/12/2011 9:29 EST Start using neti pot saline irrigation for sinuses daily. Try flonase spray at bedtime. Start cefuroxime 500 mg twice daily again for 2 weeks. documented in this encounter Ordered Prescriptions Prescription Sig Dispensed Refills Start Date End Date fluticasone (FLONASE) 50 1 [place] by Nasal 1 Bottle 5 11/1108/27/2012 mcg/actuation nasal spray route daily. cefUROXime (CEFTIN) 500 mg Take 1 Tab by mouth 30 Tab 0 11/12/2011 08/27/2012 tablet 2 times daily. documented in this encounter Progress Notes Gus Crenshaw MD - 11/12/2011 1159 EST PROBLEM: Sinusitis. SUBJECTIVE: Flavio is here to evaluate progressive sore throat, recurring fever and sinus congestionover the past 5 days. He has history of frequent recurrent sinusitis and was last treated with cefuroxime 1 month ago. Cefuroxime does seem to help, but symptoms seemed to recur soon after he stops this. He was treated with amoxicillin four times in 2009, with Zithromax in 06/2010 and has received cefuroxime four times in the past year. A trial of Levaquin did not seem helpful. He had been evaluated by Dr Melgoza last January for chronic hearing loss and vertigo. He was referred for an MRI but could not tolerate going through the MRI and he has been reluctant to even schedule a CT scan. He has no history of asthma or tobacco use. He has not used saline irrigation or nasal steroid. He has not been taking any regular medications. His only allergy is NAPROXEN. OBJECTIVE: BP 128/70, pulse 100, temperature 98.6. TMs appear normal. Sinuses tender right maxillary. Nasal passage right side nearly occluded and there is purulent discharge. hyperemic left side. Throat clear. Neck supple, no adenopathy, no JVD. Lungs clear. Heart sounds regular. Abdomen soft, nontender. ASSESSMENT: Recurrent sinusitis. PLAN: I have recommended that he start using Neti pot saline nasal irrigations, and I prescribed Flonase spray to use at bedtime. I will put him back on cefuroxime 500 mg twice daily for 2 weeks. He has an appointment with Dr Melgoza in 2 weeks' time. He will report if not feeling better in 1 week. documented in this encounter Plan of Treatment Not on filedocumented as of this encounter Visit Diagnoses Diagnosis Sinusitis, acute - Primary Acute sinusitis, unspecified documented in this encounter Discontinued Medications Medication Sig Discontinue Reason Start Date End Date cefUROXime (CEFTIN) 500 Take 1 Tab by mouth Error 10/14/2011 11/12/2011 mg tablet 2 times daily. documented as of this encounter Care Teams Loan Review Analyst Relationship Specialty Start Date End Date Syed Leong MD PCP - General 04/08/09 0 documented as of this encounter
--- OUTSIDE RECORDS SUMMARY | 2022-02-27 01:26 | XMS_ITS | Encounter Summary ---
:1980 Author Organization [facility] Address [address] [place] [address] Care Team Providers Name Role Phone Syed Leong MD Primary Care Provider Unavailable Reason for Visit Reason Onset Date Comments Other 01/03/2010 Encounter Details Date Type Department Care Team Description 01/03/[address] [facility] Family Syed Leong MD Other Medicine - [address] [address] Social History Tobacco Use Types Packs/Day Years Used Date Never Assessed Sex Assigned at Date Recorded Male 03/11/2020 9:13 EDT documented as of this encounter Miscellaneous Notes Telephone Encounter - Tania Waldrop RN - 01/03/2010 1507 EDT Pt notified elephone Encounter - Syed Leong MD - 01/03/2010 1445 EDT It was without any sign of hypoglycemial. i am going to give a call to talk more later, but you could let him know that. elephone Encounter - Naif Alvarado - 01/03/2010 1345 EDT Please call patient with results of glucose test. Labs were done last Wednesday. He needs to give the results to his employer. documented in this encounter Plan of Treatment Not on filedocumented as of this encounter Visit Diagnoses Not on filedocumented in this encounter Care Teams Hair Dryer Relationship Specialty Start Date End Date Syed Leong MD PCP - General 04/08/09 0 documented as of this encounter
--- OUTSIDE RECORDS SUMMARY | 2022-02-27 01:26 | XMS_ITS | Encounter Summary ---
:1980 Author Organization [facility] Address [address] [place] [address] Care Team Providers Name Role Phone Syed Leong MD Primary Care Provider Unavailable Reason for Visit Reason Onset Date Comments Advice Only 06/24/2010 Encounter Details Date Type Department Care Team Description 06/24/2010 Telephone [facility] Family Syed Leong MD Advice Only Medicine - [address] [address] Social History Tobacco Use Types Packs/Day Years Used Date Former Smoker Quit: 03/25/20 09 Sex Assigned at Date Recorded Male 03/11/2020 9:13 EDT documented as of this encounter Ordered Prescriptions Prescription Sig Dispensed Refills Start Date End Date cefUROXime (CEFTIN) 250 mg Take 1 Tab by mouth 20 Tab 0 06/24/2010 07/11/2010 tablet 2 times daily. documented in this encounter Miscellaneous Notes Telephone Encounter - Syed Leong MD - 06/24/2010 1856 EDT No improvement after 4 days on amox. Change to ceftin I sent the Rx to the pharmacy. Notified elephone Encounter - Aisha Torres - 06/24/2010 1652 EDT Patient is calling to say he has had a low grade fever for 4 days. He started taking an antibiotic on Wednesday. He'd like Syed to call him back and advise. documented in this encounter Plan of Treatment Not on filedocumented as of this encounter Visit Diagnoses Not on filedocumented in this encounter Discontinued Medications Medication Sig Discontinue Reason Start Date End Date amoxicillin (AMOXIL) 500 Take 2 Caps by Alternate therapy 0 06/24/2010 mg capsule mouth 2 times daily. documented as of this encounter Care Teams Presser And Shaper Knitted Goods Relationship Specialty Start Date End Date Syed Leong MD PCP - General 04/08/09 0 documented as of this encounter
--- OUTSIDE RECORDS SUMMARY | 2022-02-27 01:26 | XMS_ITS | Encounter Summary ---
:1980 Author Organization [facility] Address [address] [place] [address] Care Team Providers Name Role Phone Syed Leong MD Primary Care Provider Unavailable Encounter Details Date Type Department Care Team Description 05/27/2014 Hospital En[phone] [place] [address] (Work) [place] [address] Social History Tobacco Use Types Packs/Day Years [...] Date amoxicillin-clavulanate Take 1 Tab by mouth 2 20 Tab 0 1 10/19/2012 04/02/2015 (AUGMENTIN) 875-125 mg times daily for 10 per tabletIndications: days. Sinusitis famotidine (PEPCID) 20 Take 1 Tab by mouth 2 90 Tab 3 05/29/2014 mg tabletIndications: times daily. GERD (gastroesophageal reflux disease) fluticasone (FLONASE) 50 Instill 2 Sprays into 3 Bottle 3 10/18/2013 04/23/2015 mcg/actuation nasal both nostrils daily sprayIndications: for 90 days. Sinusitis, acute omeprazole (PRILOSEC) 40 Take 1 Cap by mouth 90 Cap 3 04/23/2015 mg capsuleIndications: daily. GERD (gastroesophageal reflux disease) documented as of this encounter Discharge Disposition Disposition Code Departure Means Destination Home or Self Senior Care documented in this encounter Plan of Treatment Not on filedocumented as of this encounter Visit Diagnoses Not on filedocumented in this encounter Care Teams Metal Hardener Relationship Specialty Start Date End Date Syed Leong MD PCP - General 04/08/09 0 documented as of this encounter
--- OUTSIDE RECORDS SUMMARY | 2022-02-27 01:26 | XMS_ITS | Encounter Summary ---
:1980 Author Organization [facility] Address [address] [place] [address] Care Team Providers Name Role Phone Syed Leong MD Primary Care Provider Unavailable Reason for Visit Reason Onset Date Comments Other 01/28/2011 Encounter Details Date Type Department Care Team Description 01/28/2011 Telephone [facility] ALESSANDRO - Saurabh Melgoza MD Other [place] [address] [place], [place] [id number] [place] [address] [phone] (Wo rk) Social History Tobacco Use Types Packs/Day Years Used Date Former Smoker 1 10 Quit: 03/25/20 09 Alcohol Use Standard Drinks/Week Comments Yes 0 (1 standard drink = 0.6 oz pure alcoho l) occ Sex Assigned at Date Recorded Male 03/11/2020 9:13 EDT documented as of this encounter Ordered Prescriptions Prescription Sig Dispensed Refills Start Date End Date DIAZepam (VALIUM) 5 mg Take 1 Tab by mouth. 2 Tab 0 08/04/2011 tablet Take 1 tablet by mouth 30 minutes prior to procedure. Bring the other tablet to procedure can be taken if needed at that time. Do not drive while taking this medication. documented in this encounter Miscellaneous Notes Telephone Encounter - Mariya Jeffries RN - 01/28/2011 0920 EDT Pt notified prescription called to [facility]. elephone Encounter - Hai Suarez - 01/28/2011 0819 EDT Patient's called. He was unable to do the MRI yesterday due to the closed environment. He had it rescheduled for at six pm but needs to have some type of medication sent to the pharmacy to allow him to take thetest. Please submit something for him. documented in this encounter Plan of Treatment Not on filedocumented as of this encounter Visit Diagnoses Not on filedocumented in this encounter Care Teams Truss Builder Relationship Specialty Start Date End Date Syed Leong MD PCP - General 04/08/09 0 documented as of this encounter
--- OUTSIDE RECORDS SUMMARY | 2022-02-27 01:26 | XMS_ITS | Encounter Summary ---
:1980 Author Organization [facility] Address [address] [place] [address] Care Team Providers Name Role Phone Syed Leong MD Primary Care Provider Unavailable Reason for Visit Reason Onset Date Comments Sinusitis 01/11/2011 amoxicillin not work ing, changing abx Encounter Details Date Type Department Care Team Description 01/11/2011 Orders Only [facility] Syed Leong is, acute Family Medicine - MD Sonya (Primary D x) [address] [address] Social History Tobacco Use Types Packs/Day Years Used Date Former Smoker Quit: 03/25/20 09 Sex Assigned at Date Recorded Male 03/11/2020 9:13 EDT documented as of this encounter Ordered Prescriptions Prescription Sig Dispensed Refills Start Date End Date cefUROXime (CEFTIN) 500 mg Take 1 Tab by mouth 20 Tab 0 01/11/2011 07/21/2011 tablet 2 times daily. documented in this encounter Plan of Treatment Not on filedocumented as of this encounter Visit Diagnoses Diagnosis Sinusitis, acute - Primary Acute sinusitis, unspecified documented in this encounter Discontinued Medications Medication Sig Discontinue Reason Start Date End Date amoxicillin (AMOXIL) 500 Take 2 Caps by Alternate therapy 1 01/11/2011 mg capsule mouth 2 times daily. documented as of this encounter Care Teams Forest Supervisor Relationship Specialty Start Date End Date Syed Leogn MD PCP - General 04/08/09 7 0 documented as of this encounter
--- OUTSIDE RECORDS SUMMARY | 2022-02-27 01:26 | XMS_ITS | Encounter Summary ---
:1980 Author Organization [facility] Address [address] [place] [address] Care Team Providers Name Role Phone Syed Leong MD Primary Care Provider Unavailable Reason for Referral (Routine) - Closed Specialty Diagnoses / Procedures Referred By Contact Refer red To Contact Diagnoses Weakness Syed Leong MD Procedures GLUCOSE TOLERANCE, 5HR [address] [facility] [address] [address] Referral ID Status Reason Start Date Expiration Date Visits Requ ested Visits Authorized [id number] Closed 12/19/2009 1 1 Encounter Details Date Type Department Care Team Description 12/19/2009 Orders Only [facility] Jennifer Waldrop (Primary Dx) Family Medicine - MICHAEL [place] [address] [address] Social History Tobacco Use Types Packs/Day Years Used Date Never Assessed Sex Assigned at Date Recorded Male 03/11/2020 9:13 EDT documented as of this encounter Progress Notes Tania Waldrop RN - 12/19/2009 1350 EDT notified taSyed ramirez MD - 12/19/2009 1255 EDT Pt having episodes of weakness responding to eating/drinking. ? Hypoglycemia Father has it. P-5 hr GTT documented in this encounter Plan of Treatment Scheduled Orders Name Type Priority Associated Diagnoses Order S chedule GLUCOSE TOLERANCE, 5HR Lab Routine Weakness Order ed: 12/19/2009 documented as of this encounter Visit Diagnoses Diagnosis Weakness - Primary Other malaise and fatigue documented in this encounter Care Teams Health Program Specialist Relationship Specialty Start Date End Date Syed Leong MD PCP - General 04/08/09 0 documented as of this encounter
--- OUTSIDE RECORDS SUMMARY | 2022-02-27 01:26 | XMS_ITS | Encounter Summary ---
:1980 Author Organization [facility] Address [address] [place] [address] Care Team Providers Name Role Phone Syed Leong MD Primary Care Provider Unavailable Reason for Visit Reason Comments Cyst Encounter Details Date Type Department Care Team Description 04/04/2014 Office Visit [facility] Marshal Alvarado Sebace ous cyst (Primary General Surgery - Dx) [address] [address] Social History Tobacco Use Types Packs/Day Years Used Date Former Smoker Cigarettes 10 Quit: 03/25/20 09 Smokeless Tobacco: Never Used Alcohol Use Standard Drinks/Week Comments No 0 (1 standard drink = 0.6 oz pure alcoho l) occ Sex Assigned at Date Recorded Male 03/11/2020 9:13 EDT documented as of this encounter Last Filed Vital Signs Vital Sign Reading Time Taken Comments Blood Pressure 128/84 04/04/2014 1116 EDT Pulse 70 04/04/2014 1116 EDT Temperature - - Respiratory Rate 18 04/04/2014 1116 EDT Oxygen Saturation - - Inhaled Oxygen Concentration - - Weight 81.6 kg (180 lb) 04/04/2014 1116 EDT Height 172.7 cm (5' 8) 04/04/2014 1116 EDT Body Mass Index 27.37 04/04/2014 1116 EDT documented in this encounter Progress Notes Marshal Alvarado MD - 04/04/2014 1211 EDT Here for evaluation of sebaceous cyst on right back. Has had several wks, saw practitioner recently who tried I&D-- unable to proceed due to pt feeling dizzy. Notes that area is much improved now-- was red, swollen and draining lots of material. Now little drainage, no swelling during day, some with shower. Redness resolved. No fever, chills or other constitutional symptoms. Denies prior melinda cysts. PE: right back has small skin hole/lesion with no surrounding edema/induration or redness. Non tender. No drainage when seen. Imp: probable resolving infected sebaceous cyst Plan: RTC one month -- allow for complete resolution of current infection. Discussed option of excising remaining cyst to prevent recurrence. He should return if symptoms return. documented in this encounter Plan of Treatment Not on filedocumented as of this encounter Visit Diagnoses Diagnosis Sebaceous cyst - Primary documented in this encounter Care Teams Laundry Washer Relationship Specialty Start Date End Date Syed Leong MD PCP - General 04/08/09 0 documented as of this encounter
--- OUTSIDE RECORDS SUMMARY | 2022-02-27 01:26 | XMS_ITS | Encounter Summary ---
:1980 Author Organization [facility] Address [address] [place] [address] Care Team Providers Name Role Phone Syed Leong MD Primary Care Provider Unavailable Reason for Visit Reason Onset Date Comments Cough 07/03/2010 Encounter Details Date Type Department Care Team Description 07/03/2010 Telephone [facility] Syed Leong MD Cough Medicine - [address] [address] Social History Tobacco Use Types Packs/Day Years Used Date Former Smoker Quit: 03/25/20 09 Sex Assigned at Date Recorded Male 03/11/2020 9:13 EDT documented as of this encounter Miscellaneous Notes Telephone Encounter - Gaby Mosher - 07/04/2010 1003 EDT Scheduled for 07/05. elephone Encounter - Syed Leong MD - 07/03/2010 1844 EDT Still coughing and sick. Sounds hoarse and raspy (wheezy?) on the phone. Needs rov. Told him i'd seehim Sat morning. Please call tomorrow, Wednesday with appt time. Telephone Encounter - Ml Parker - 07/03/2010 0813 EDT Seen for fever, cough last wk; on antibiotics, fever is mostly gone but the cough seems to be getting worse. Please call to discuss what to do next (end of the day call would be best) documented in this encounter Plan of Treatment Not on filedocumented as of this encounter Visit Diagnoses Not on filedocumented in this encounter Care Teams Auger Press Operator Relationship Specialty Start Date End Date Syed Leong MD PCP - General 04/08/09 0 documented as of this encounter
--- OUTSIDE RECORDS SUMMARY | 2022-02-27 01:26 | XMS_ITS | Encounter Summary ---
:1980 Author Organization [facility] Address [address] [place] [address] Care Team Providers Name Role Phone Syed Leong MD Primary Care Provider Unavailable Reason for Visit Reason Comments URI Encounter Details Date Type Department Care Team Description 08/27/2012 Office Visit [facility] Nette Arteaga is, acute Family Medicine - MD Gigi (Primary D x) [address], [place] [address] Social History Tobacco Use Types Packs/Day Years Used Date Former Smoker 1 10 Quit: 03/25/20 09 Alcohol Use Standard Drinks/Week Comments Yes 0 (1 standard drink = 0.6 oz pure alcoho l) occ Sex Assigned at Date Recorded Male 03/11/2020 9:13 EDT documented as of this encounter Last Filed Vital Signs Vital Sign Reading Time Taken Comments Blood Pressure 116/72 08/27/2012 0903 EST Pulse - - Temperature 36.9 ??C (98.5 ??F) 08/27/2012 0903 EST Respiratory Rate - - Oxygen Saturation - - Inhaled Oxygen Concentration - - Weight - - Height - - Body Mass Index - - documented in this encounter Ordered Prescriptions Prescription Sig Dispensed Refills Start Date End Date cefUROXime (CEFTIN) 500 mg Take 1 Tab by mouth 30 Tab 0 08/27/2012 10/03/2012 tablet 2 times daily. documented in this encounter Progress Notes Nette Arteaga MD - 08/27/2012 0931 EST Flavio is here because of ongoing respiratory difficulties. He started with a major cold just around , primarily with nasal congestion, sore throat, a little bit run down. He was clunkingon all right until the last few days when he develops fever, increased fatigue, and greenish bloody nasal discharge. The patient has a history of recurrent sinusitis, but over a year ago, he started with sinus rinses and found that that was very helpful for preventing sinus infection. He has not been on antibiotics since 11/2011. The patient is not a smoker. He is generally in good health. He is not using any routine nasal sprays. REVIEW OF SYSTEMS: As above, he has not had any vomiting. He does not feel short of breath. He does feel increasingly ill over the past few days. It should be noted that a number of his children are also ill with a similar respiratory infection over the past month. Patient Active Problem List Diagnoses ??? Left-sided tinnitus ??? Hearing loss in left ear No outpatient prescriptions have been marked as taking for the 08/27/12 encounter (Office Visit) with Nette Arteaga MD. Family History Problem Relation Age of Onset ??? * Neg Hx ??? Allergic Rhinitis Neg Hx ??? Anesth Problems Neg Hx ??? Asthma Neg Hx ??? Bleeding Prob Neg Hx ??? Cancer Neg Hx ??? Hearing Loss Neg Hx ??? Migraines Neg Hx ??? Thyroid Disease Neg Hx BP 116/72 Temp 36.9 ??C (98.5 ??F) He is well appearing, but has a little bit of a nasal voice. His ears show clear tympanic membranes.Nares are boggy, congested and the left naris has discharge from the middle meatus. Neck has no adenopathy. Lungs are clear with excellent air movement. Pharynx is benign. ASSESSMENT: Sinusitis following upper respiratory infection. The patient has already done irrigation. PLAN: Will treat with Ceftin 500 mg b.i.d. for two weeks. He will back off a little bit on the sinusrinses as they seem to be causing irritation and bleeding, but he then may continue them following resolution of the bleeding. He is counseled that it will take a number of days before he starts to feel better. documented in this encounter Plan of Treatment Not on filedocumented as of this encounter Visit Diagnoses Diagnosis Sinusitis, acute - Primary Acute sinusitis, unspecified documented in this encounter Discontinued Medications Medication Sig Discontinue Reason Start Date End Date cefUROXime (CEFTIN) 500 Take 1 Tab by mouth Therapy completed 11/1108/27/2012 mg tablet 2 times daily. fluticasone (FLONASE) 50 1 [place] by Nasal Therapy completed 012 08/27/2012 mcg/actuation nasal spray route daily. documented as of this encounter Care Teams Solar Sales Representative Relationship Specialty Start Date End Date Syed Leong MD PCP - General 04/08/09 0 documented as of this encounter
--- OUTSIDE RECORDS SUMMARY | 2022-02-27 01:26 | XMS_ITS | Encounter Summary ---
:1980 Author Organization [facility] Address [address] [place] [address] Care Team Providers Name Role Phone Syed Leong MD Primary Care Provider Unavailable Encounter Details Date Type Department Care Team Description 03/25/2010 Abstract Used for ABSTRACTING Data Syed Leong MD [phone] Social History Tobacco Use Types Packs/Day Years [...] Sig Dispensed Refills Start Date End Date OMEPRAZOLE (PRILOSEC Take by mouth daily. 0 12/01/2010 ORAL) added in this encounter Care Teams Ballet Soloist Relationship Specialty Start Date End Date Syed Leong MD PCP - General 04/08/09 0 documented as of this encounter
--- OUTSIDE RECORDS SUMMARY | 2022-02-27 01:26 | XMS_ITS | Encounter Summary ---
:1980 Author Organization [facility] Address [address] [place] [address] Care Team Providers Name Role Phone Syed Leong MD Primary Care Provider Unavailable Reason for Referral Consult (Routine) - Closed Specialty Diagnoses / Procedures Referred By Contact Refer red To Contact General Surgery Diagnoses Sebaceous cyst [facility] PABLO Hurtado [address] [address] [address] [place] [phone] Referral ID Status Reason Start Date Expiration Date Visits V isits Requested Authorized [id number] Closed Specialty 03/19/2014 1 1 Services Required Question Answer Reason for Request: right shoulder large sebaceo us cyst - vasovagal response during in-office surgery, did decom press significantly but cyst remains intact Reason for Visit Reason Comments Cyst cyst removal to right should er area Medications Refill refill need for omeprazole Encounter Details Date Type Department Care Team Description 03/19/2014 Office Visit [facility] Unknown, Gonzalez russ MD Sebaceous cyst (Primary Dx); Family Medicine - Cruzito Howell FNP [address] [phone] GERD (gastroesophageal reflux disease) [address] [address] Social History Tobacco Use Types Packs/Day Years Used Date Former Smoker Cigarettes 10 Quit: 03/25/20 09 Smokeless Tobacco: Never Used Alcohol Use Standard Drinks/Week Comments Yes 0 (1 standard drink = 0.6 oz pure alcoho l) occ Sex Assigned at Date Recorded Male 03/11/2020 9:13 EDT documented as of this encounter Last Filed Vital Signs Vital Sign Reading Time Taken Comments Blood Pressure 122/80 03/19/2014 0923 after procedure EDT waited for secon d set of vitals Pulse 72 03/19/2014 0923 EDT Temperature 36.7 ??C (98.1 ??F) 03/19/2014 0828 EDT Respiratory Rate 16 03/19/2014 0923 EDT Oxygen Saturation - - Inhaled Oxygen - - Concentration Weight 82.4 kg (181 lb 9.6 03/19/2014 0828 oz) EDT Height - - Body Mass Index 27.01 11/29/2012 1403 EDT documented in this encounter Patient Instructions Patient InstructionsCruzito Howell - 03/19/2014 10:54 EDT documented in this encounter Ordered Prescriptions Prescription Sig Dispensed Refills Start Date End Date omeprazole (PRILOSEC) 40 Take 1 Cap by mouth 90 Cap 3 04/23/2015 mg capsuleIndications: daily. GERD (gastroesophageal reflux disease) famotidine (PEPCID) 20 mg Take 1 Tab by mouth 90 Tab 3 0 03/19/2014 05/29/2014 tabletIndications: GERD 2 times daily. (gastroesophageal reflux disease) documented in this encounter Progress Notes Cruzito Howell - 03/19/2014 0828 EDT Subjective: Patient ID: Flavio Hamm is an 33 y.o. male. Chief Complaint Patient presents with ??? Cyst cyst removal to shoulder area HPI Flavio Hamm, a 33 y.o. male is here today for removal of an inflamed sebaceous cyst. He would also like a refill of famotidine and omeprazole as prescribed by Dr. Witt. Outpatient Prescriptions Marked as Taking for the 03/19/14 encounter (Office Visit) with Cruzito Howell NP Medication Sig Dispense Refill ??? omeprazole (PRILOSEC) 40 mg capsule Take 1 Cap by mouth daily. 30 Cap 5 No Facility-Administered Medications for the 03/19/14 encounter (Office Visit) with Cruzito Howell NP. Patient Active Problem List Diagnosis ??? Left-sided tinnitus ??? Hearing loss in left ear ??? Gastroesophageal reflux disease Past Medical History Diagnosis Date ??? Hearing loss Left high frequency with assoc. Tinnitus Allergies Allergen Reactions ??? Augmentin (Amoxicillin-Pot Clavulanate) Swelling of tongue ??? Naproxen Other (See Comments) Throat swelled 08/18 ??? Sulfa (Sulfonamide Antibiotics) ??? Wellbutrin (Bupropion) Social History Substance Use Topics ??? Smoking status: Former Smoker -- 10 years Types: Cigarettes Quit date: 03/25/2009 ??? Smokeless tobacco: Never Used ??? Alcohol Use: Yes Comment: occ ROS - See HPI Objective: BP 130/78 Pulse 78 Temp(Src) 36.7 ??C (98.1 ??F) (Oral) Wt 82.373 kg (181 lb 9.6 oz) BMI 27.02 kg/m2 Physical Exam Nursing note and vitals reviewed. Skin: There is a large sebaceous cyst present over the lower right clavicle. It is approximately 50mm x 40mm. There is a point of drainage present with spontaneous drainage Assessment: Sebaceous cyst: Unable to remove today due to vasovagal response. Did significantly decompress manually Plan: Flavio was seen today for cyst. Diagnoses and associated orders for this visit: Sebaceous cyst documented in this encounter Procedure Notes Cruzito Howell - 03/19/2014 0912 EDT Procedure: Procedures Removal of sebaceous cyst After obtaining verbal and written consent a time-out was observed and the area was draped in the sterile fashion. It was then cleansed with chlorhexidine, and 1.5cc lidocaine/epinephrine was infiltrated into the site in a wide field block. The patient began to experience a vasovagal response during this infiltration, becoming nauseated, dizzy and diaphoretic. His legs were elevated. He asked for some water which was provided, and then was given some apple juice. He recovered after a few minutes, and large cyst was decompressed through direct pressure (without making an incision) yielding a large amount of purulent material. Rather than proceeding with an incision given the past events we opted for referral to general surgery rather than continuing with the procedure at this time. The patient wasobserved until he was verified to be stable and his vital signs stabilized and then discharged. documented in this encounter Plan of Treatment Scheduled Referrals Name Type Priority Associated Diagnoses Order S chedule AMB CONS/FOLLOW UP Outpatient Referral Routine Sebaceous cyst Ordered: GENERAL SURGERY 03/19/2014 documented as of this encounter Visit Diagnoses Diagnosis Sebaceous cyst - Primary GERD (gastroesophageal reflux disease) Esophageal reflux documented in this encounter Discontinued Medications Medication Sig Discontinue Reason Start Date End Date omeprazole (PRILOSEC) 40 Take 1 Cap by mouth Reorder 3 03/19/2014 mg capsuleIndications: daily. GERD (gastroesophageal reflux disease) documented as of this encounter Care Teams Special Agent [employer] Relationship Specialty Start Date End Date Syed Leong MD PCP - General 04/08/09 0 documented as of this encounter
--- OUTSIDE RECORDS SUMMARY | 2022-02-27 01:26 | XMS_ITS | Encounter Summary ---
:1980 Author Organization [facility] Address [address] [place] [address] Care Team Providers Name Role Phone Syed Leong MD Primary Care Provider Unavailable Reason for Visit Reason Onset Date Comments Appointment Related 03/21/2014 Encounter Details Date Type Department Care Team Description 03/21/2014 Telephone [facility] Sami Edwards Appoi ntment Related General Surgery - Be latasha Hernandez MD [address] [facility] [address] [facility] [address] [place] [address] [place], [place] [phone] (Wo rk) Social History Tobacco Use Types Packs/Day Years Used Date Former Smoker Cigarettes 10 Quit: 03/25/20 09 Smokeless Tobacco: Never Used Alcohol Use Standard Drinks/Week Comments Yes 0 (1 standard drink = 0.6 oz pure alcoho l) occ Sex Assigned at Date Recorded Male 03/11/2020 9:13 EDT documented as of this encounter Miscellaneous Notes Telephone Encounter - Mariya Jeffries RN - 03/26/2014 0926 EDT Pt has appt. With Dr. Alvarado. No further interventions. elephone Encounter - Kaylee Keith - 03/21/2014 1638 EDT Flavio is calling with questions regarding a cyst. He states that it is red and very sore. He saw Marvel Howell who drained the cyst, but he was unable to get it all. He has been referred to Dr. Edwards. Patient states that he had a weird reaction to the medicine and felt sick as it was being injected. Marvel Mahanvimaljarrett suggested he had a fear of needles but the patient states he does not. Now the cyst hashard lumps around the injection site and he has been pushing what he describes as stuff out of it.He is wondering if it is infected. Please call to discuss @ [phone]. He does not have an appointment with Dr. Edwards yet. documented in this encounter Plan of Treatment Not on filedocumented as of this encounter Visit Diagnoses Not on filedocumented in this encounter Care Teams Director Hematology Relationship Specialty Start Date End Date Syed Leong MD PCP - General 04/08/09 0 documented as of this encounter
--- OUTSIDE RECORDS SUMMARY | 2022-02-27 01:26 | XMS_ITS | Encounter Summary ---
:1980 Author Organization [facility] Address [address] [place] [address] Care Team Providers Name Role Phone Syed Leong MD Primary Care Provider Unavailable Encounter Details Date Type Department Care Team Description 11/10/2008 Before PRISM Converted [facility] - Tyler Berman Visit (Christine) Mapmanda conversion R, SUPRIYA-C [address] [place] [address] Social History Tobacco Use Types Packs/Day Years Used Date Never Assessed Sex Assigned at Date Recorded Male 03/11/2020 9:13 EDT documented as of this encounter Progress Notes Tyler Berman PA - 10/16/2009 0034 EST [facility] PROGRESS/FOLLOWUP NOTE - 11/10/2008 DULCE Muniz comes in today with complaint of continued cold symptoms for the past two weeks. Notes a lot of discomfort, especially in the forehead. Alot of yellow/green nasal mucus and continued sore throat. Mild cough. No fever or chills. Does get sinus infections from time to time. MEDICATIONS He currently takes Prilosec 20 mg daily. ALLERGIES No known medication allergies. OBJECTIVE 96.5. He is in no apparent distress. ENT exam: Both TMs are normal in appearance. He has moderate nasal congestion with discomfort over the frontal sinuses. Posterior pharyngeal erythema. Mild cervical adenopathy. Lungs are clear. Heart is regular without murmur. ASSESSMENT Acute sinusitis. PLAN 1. Continue increased fluids and nasal steam. 2. Prescription is given for amoxicillin 500 mg, two b.i.d. x10 days, #40. 3. Follow up with persistent or worsening symptoms. Signed by Gus Crenshaw MD 11/15/2008 17:01 Reviewed by Tyler Berman PA-C 11/15/2008 11:00 Tyler Berman PA-C Gus Crenshaw MD A Job ID [id number] A/JESSICA Doc ID [id number] cc: A Job ID [id number] Song/jessica Doc ID [id number] cc: documented in this encounter Plan of Treatment Not on filedocumented as of this encounter Visit Diagnoses Not on filedocumented in this encounter Care Teams Family Services Coordinator Relationship Specialty Start Date End Date Syed Leong MD PCP - General 04/08/09 0 documented as of this encounter
--- OUTSIDE RECORDS SUMMARY | 2022-02-27 01:26 | XMS_ITS | Encounter Summary ---
:1980 Author Organization [facility] Address [address] [place] [address] Care Team Providers Name Role Phone Syed Leong MD Primary Care Provider Unavailable Reason for Visit Reason Onset Date Comments Appointment Related 02/04/2011 Encounter Details Date Type Department Care Team Description 02/04/2011 Telephone [facility] ALESSANDRO - Saurabh Melgoza MD Appointment Related [place] [address] [facility] [address] [facility] [address] [place] [address] [place], [place] [phone] (Wo rk) Social History Tobacco Use Types Packs/Day Years Used Date Former Smoker 1 10 Quit: 03/25/20 09 Alcohol Use Standard Drinks/Week Comments Yes 0 (1 standard drink = 0.6 oz pure alcoho l) occ Sex Assigned at Date Recorded Male 03/11/2020 9:13 EDT documented as of this encounter Miscellaneous Notes Telephone Encounter - Naif Alvarado - 03/02/2011 1302 EDT I called and left message to call back because I hadn't heard from the patient regarding MRI. I needto know if he wants to proceed with getting him in for an open MRI. Also need to know where he wouldprefer to have this done. There's three options: [facility], [facility], and [place]. elephone Encounter - Naif Alvarado - 02/04/2011 1132 EDT I called and left message to call back because pt could go through with MRI on 02/03/11. He was givensedatives for the mri, but could not go through with it. I want to know if he wants to reschedule this as on Open MRI. This can be done in [place] ([place] [facility]) or [facility]. I have cancelled his follow up visit with Dr. Melgoza. documented in this encounter Plan of Treatment Not on filedocumented as of this encounter Visit Diagnoses Not on filedocumented in this encounter Care Teams Chair Maker Relationship Specialty Start Date End Date Syed Leong MD PCP - General 04/08/09 0 documented as of this encounter
--- OUTSIDE RECORDS SUMMARY | 2022-02-27 01:26 | XMS_ITS | Encounter Summary ---
:1980 Author Organization [facility] Address [address] [place] [address] Care Team Providers Name Role Phone Syed Leong MD Primary Care Provider Unavailable Reason for Visit Reason Onset Date Comments Medications Refill 12/27/2009 Encounter Details Date Type Department Care Team Description 12/27/2009 Refill [facility] Syed Leong MD Medications Refill [address] [address] Social History Tobacco Use Types Packs/Day Years Used Date Never Assessed Sex Assigned at Date Recorded Male 03/11/2020 9:13 EDT documented as of this encounter Plan of Treatment Not on filedocumented as of this encounter Visit Diagnoses Not on filedocumented in this encounter Care Teams Rhit Relationship Specialty Start Date End Date Syed Leong MD PCP - General 04/08/09 0 documented as of this encounter
--- OUTSIDE RECORDS SUMMARY | 2022-02-27 01:26 | XMS_ITS | Encounter Summary ---
:1980 Author Organization [facility] Address [address] [place] [address] Care Team Providers Name Role Phone Syed Leong MD Primary Care Provider Unavailable Reason for Visit Reason Onset Date Comments URI 10/23/2013 Encounter Details Date Type Department Care Team Description 10/23/2013 Telephone [facility] Syed Leong MD URI [address] [address] Social History Tobacco Use Types Packs/Day Years [...] doxycycline (VIBRA-TABS) Take 1 Tab by mouth 20 Tab 0 11/02/2013 100 mg tablet 2 times daily for 10 days. documented in this encounter Miscellaneous Notes Telephone Encounter - Fe Cai RN - 10/23/2013 1405 EST Patient called back, information provided. elephone Encounter - Aisha Gomez - 10/23/2013 1401 EST Flavio called Hannah back. elephone Encounter - Fe Cai RN - 10/23/2013 1019 EST Left message for Nini to back. elephone Encounter - Cruzito Howell - 10/23/2013 1014 EST I am sending in a script for doxycycline. Please advise of the following: Doxycycline is best tolerated with food, but is not absorbed by the body if you take it with any calcium. Make sure you don't have any calcium or dairy products for two hours before or after taking it. These include multivitamins, calcium + vitamin D, Tums, ice cream, milk, yogurt, cheese, and many other things. If you have anydoubt don't eat it for two hours before or after taking the doxycycline. You can eat dairy products at your noon meal though. elephone Encounter - Yesenia Messer RN - 10/23/2013 0911 EST Please advise. elephone Encounter - Yanet Cohn - 10/23/2013 0839 EST Flavio came in to see Marvel Lynda on Oct 18. He is still c/o ear pressure, throat pain and nasal congestion. Can we get back to Nini on this please? documented in this encounter Plan of Treatment Not on filedocumented as of this encounter Visit Diagnoses Not on filedocumented in this encounter Care Teams Babysitter Relationship Specialty Start Date End Date Syed Leong MD PCP - General 04/08/09 0 documented as of this encounter
--- OUTSIDE RECORDS SUMMARY | 2022-02-27 01:26 | XMS_ITS | Encounter Summary ---
:1980 Author Organization [facility] Address [address] [place] [address] Care Team Providers Name Role Phone Syed Leong MD Primary Care Provider Unavailable Reason for Visit Reason Comments Annual Exam CDL Encounter Details Date Type Department Care Team Description 11/29/2012 Office Visit [facility] Tyler Berman physical exam (Primary Dx); Family Medicine - SACHIN Howell Screening [address] [place] [address] Social History Tobacco Use Types Packs/Day Years Used Date Former Smoker 1 10 Quit: 03/25/20 09 Alcohol Use Standard Drinks/Week Comments Yes 0 (1 standard drink = 0.6 oz pure alcoho l) occ Sex Assigned at Date Recorded Male 03/11/2020 9:13 EDT documented as of this encounter Last Filed Vital Signs Vital Sign Reading Time Taken Comments Blood Pressure 126/74 11/29/2012 1403 EDT Pulse 70 11/29/2012 1403 EDT Temperature - - Respiratory Rate 12 11/29/2012 1403 EDT Oxygen Saturation - - Inhaled Oxygen Concentration - - Weight 87.2 kg (192 lb 3.2 oz) 11/29/2012 1403 EDT Height 174.6 cm (5' 8.75) 11/29/2012 1403 EDT Body Mass Index 28.59 11/29/2012 1403 EDT documented in this encounter Discharge Disposition Disposition Code Departure Means Destination Auto Discharge documented in this encounter Progress Notes Tyler Berman PA-C - 11/29/2012 1436 EDT Subjective: Patient ID: Flavio Hamm is an 32 y.o. male. Chief Complaint Patient presents with ??? 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 H/O GERD, using omeprazole with good control. No other c/o at this visit. Patient Active Problem List Diagnoses ??? Left-sided tinnitus ??? Hearing loss in left ear ??? GERD (gastroesophageal reflux disease) Past Medical History Diagnosis Date ??? Hearing loss Left high frequency with assoc. Tinnitus Current Outpatient Prescriptions on File Prior to Visit Medication Sig Dispense Refill ??? omeprazole (PRILOSEC) 40 mg capsule Take 1 Cap by mouth daily. 30 Cap 5 Allergies Allergen Reactions ??? Naproxen Other (See Comments) Throat swelled 08/18 Social History Substance Use Topics ??? Smoking status: Former Smoker -- 1.0 packs/day for 10 years Quit date: 03/25/2009 ??? Smokeless tobacco: Not on file ??? Alcohol Use: Yes occ Review of Systems Constitutional: Negative. HENT: Positive for tinnitus. Decreased hearing, tinnitus, left ear. Eyes: Negative. Respiratory: Negative. Cardiovascular: Negative. Gastrointestinal: Negative. Genitourinary: Negative. Musculoskeletal: Negative. Skin: Negative. - See HPI Objective: BP 126/74 Pulse 70 Resp 12 Ht 174.6 cm (68.75) Wt 87.181 kg (192 lb 3.2 oz) BMI 28.59 kg/m2 Physical Exam Constitutional: He appears well-developed and well-nourished. No distress. HENT: Right Ear: Hearing, tympanic membrane and ear canal normal. Left Ear: Tympanic membrane and ear canal normal. Decreased hearing is noted. Nose: Nose normal. Mouth/Throat: Oropharynx is clear and moist. Eyes: Conjunctivae are normal. Pupils are equal, round, and reactive to light. Neck: No thyromegaly present. Cardiovascular: Normal rate, regular rhythm and intact distal pulses. No murmur heard. Pulmonary/Chest: Effort normal and breath sounds normal. Abdominal: Soft. Bowel sounds are normal. There is no tenderness. Genitourinary: Normal genitalia. No hernias. Musculoskeletal: Normal range of motion. Lymphadenopathy: He has no cervical adenopathy. Neurological: He has normal reflexes. Psychiatric: He has a normal mood and affect. Assessment: Well adult Plan: Flavio was seen today for annual exam. Diagnoses and associated orders for this visit: Annual physical exam Screening - POCT Urine Dipstick Form filled out for CDL. Return for follow-up 2 years for CDL.. documented in this encounter Plan of Treatment Not on filedocumented as of this encounter Procedures Procedure Name Priority Date/Time Associated Diagnosis Comme nts POCT URINE Routine 11/29/2012 14:04 Screening Results for this DIPSTICK, CLINITEK EDT procedure are in the results section. documented in this encounter Results POCT URINE DIPSTICK (11/29/2012 14:04 EDT) Color YELLOW [facility] Clarity, UA Clear [facility] Glucose Neg Neg [facility] Bilirubin Neg Neg [facility] Ketones Neg Neg [facility] Specific [place] 1.015 1.001 - 1.035 [facility] Blood Neg Neg [facility] pH 6.0 4.6 - 8.0 [facility] Protein Neg Neg [facility] Urobilinogen 0.2 0.2 - 1.0 [facility] E.U./dl [facility] Nitrite Neg Neg [facility] Leuk Esterase Neg Neg [facility] executive wellness programs director ID [id number]: ALLAN [facility] Test performed at LAB [facility] Specimen Urine (substance) Performing Organization Address City/State/ZIP Code Phon e Number [facility] [address] [place] [address] [facility] [address] [place] [address] documented in this encounter Visit Diagnoses Diagnosis Annual physical exam - Primary Routine general medical examination at a health care facility Screening Screening for unspecified condition documented in this encounter Care Teams Hand Gluer And Slicer Relationship Specialty Start Date End Date Syed Leong MD PCP - General 04/08/09 0 documented as of this encounter
--- OUTSIDE RECORDS SUMMARY | 2022-02-27 01:26 | XMS_ITS | Encounter Summary ---
:1980 Author Organization [facility] Address [address] [place] [address] Care Team Providers Name Role Phone Syed Leong MD Primary Care Provider Unavailable Reason for Visit Reason Onset Date Comments Other 07/10/2010 feeling worse again Encounter Details Date Type Department Care Team Description 07/10/2010 Telephone [facility] Syed Leong, Reji simmons (feeling worse Family Medicine - again) [address] [address] Social History Tobacco Use Types Packs/Day Years Used Date Former Smoker Quit: 03/25/20 09 Sex Assigned at Date Recorded Male 03/11/2020 9:13 EDT documented as of this encounter Miscellaneous Notes Telephone Encounter - Syed Leong MD - 07/11/2010 2019 EDT The above contact info is the wrong Hansel (Juan Carlos, not Fam). Called the right one--Fam. Feeling better. May have strained a neck muscle. Better today. Slowly recovering from the resp infection. Will f/u if worse or not all better. elephone Encounter - Ml Parker - 07/10/2010 0827 EDT Initially felt better on third antibiotic, but yesterday evening, started feeling worse again, pain in neck, behind left ear into head, painful lymph nodes, generally feeling unwell. Please call at then end of the day to discuss what to do next. documented in this encounter Plan of Treatment Not on filedocumented as of this encounter Visit Diagnoses Not on filedocumented in this encounter Discontinued Medications Medication Sig Discontinue Reason Start Date End Date cefUROXime (CEFTIN) 250 Take 1 Tab by mouth Therapy completed 06/2407/11/2010 mg tablet 2 times daily. documented as of this encounter Care Teams Park Naturalist Relationship Specialty Start Date End Date Syed Leong MD PCP - General 04/08/09 0 documented as of this encounter
--- OUTSIDE RECORDS SUMMARY | 2022-02-27 01:26 | XMS_ITS | Encounter Summary ---
:[address] [facility] Address [address] [place] [address] Care Team Providers Name Role Phone Syed Leong MD Primary Care Provider Unavailable Reason for Visit Reason Onset Date Comments Appointment Related 01/16/2011 Encounter Details Date Type Department Care Team Description 01/16/2011 Telephone [facility] ALESSANDRO - Saurabh Melgoza MD Appointment Related [place] [address] [place] [address] [place] [phone] (Wo rk) Social History Tobacco Use Types Packs/Day Years Used Date Former Smoker 1 10 Quit: 03/25/20 09 Alcohol Use Standard Drinks/Week Comments Yes 0 (1 standard drink = 0.6 oz pure alcoho l) occ Sex Assigned at Date Recorded Male 03/11/2020 9:13 EDT documented as of this encounter Miscellaneous Notes Telephone Encounter - Naif Alvarado - 01/21/2011 1208 EDT Pt called back and confirmed mri sched on 01/27 and follow up 02/05/11 elephone Encounter - Naif Alvarado - 01/16/2011 1326 EDT I called and left message to call back because pt's MRI has been scheduled for 01/27/11 @ 10am. He has a follow up with Dr. Melgoza on 02/05/11 @ 11:20am. documented in this encounter Plan of Treatment Not on filedocumented as of this encounter Visit Diagnoses Not on filedocumented in this encounter Care Teams Identity Management Consultant Relationship Specialty Start Date End Date Syed Leong MD PCP - General 04/08/09 0 documented as of this encounter
--- OUTSIDE RECORDS SUMMARY | 2022-02-27 01:26 | XMS_ITS | Encounter Summary ---
:1980 Author Organization [facility] Address [address] [place] [address] Care Team Providers Name Role Phone Syed Leong MD Primary Care Provider Unavailable Reason for Visit Reason Comments URI sore throat, nasal discharge , cough for 3 weeks Encounter Details Date Type Department Care Team Description 01/06/2011 Office Visit [facility] Syed Leong is, [facility] Family Medicine - MD Sonya (Primary D x) [place] [address] Social History Tobacco Use Types Packs/Day Years Used Date Former Smoker Quit: 03/25/20 09 Sex Assigned at Date Recorded Male 03/11/2020 9:13 EDT documented as of this encounter Last Filed Vital Signs Vital Sign Reading Time Taken Comments Blood Pressure 128/100 01/06/2011 1620 EDT Pulse 84 01/06/2011 1620 EDT Temperature 36.8 ??C (98.3 ??F) 01/06/2011 1620 EDT Respiratory Rate - - Oxygen Saturation - - Inhaled Oxygen Concentration - - Weight 86.2 kg (190 lb) 01/06/2011 1620 EDT Height - - Body Mass Index - - documented in this encounter Ordered Prescriptions Prescription Sig Dispensed Refills Start Date End Date amoxicillin (AMOXIL) 500 Take 2 Caps by 40 Cap 0 011 01/11/2011 mg capsule mouth 2 times daily. documented in this encounter Progress Notes Syed Leong MD - 01/11/20119 EDT [facility] PROGRESS/FOLLOWUP NOTE - 01/06/2011 SUBJECTIVE: He has had an upper respiratory infection for 3 weeks. It is getting worse. He has head congestion, thick, colored nasal drainage, postnasal drip, cough, sore throat. He has gotten sinus infections in the past and he feels this is likely the same. No fevers or chills, no shortness of breath. OBJECTIVE: He is afebrile. Vital signs show blood pressure 128/100; pulse is 84. His ENT exam is normal. Lungs are clear. ASSESSMENT: Sinusitis. PLAN: 1. Amoxicillin 500 mg 2 b.i.d. for 10 days. 2. Other symptomatic treatment. 3. Contact us if worsening or persistent symptoms. Electronically Signed by Syed Leong MD 01/11/2011 20:49 Syed Leong MD - Syed Leong MD - [facility] Job ID: SM Doc ID: [id number] [facility] Doc ID: [id number] cc: taSyed ramirez MD - 01/06/2011 1914 EDT This office note has been dictated. documented in this encounter Plan of Treatment Not on filedocumented as of this encounter Visit Diagnoses Diagnosis Sinusitis, acute - Primary Acute sinusitis, unspecified documented in this encounter Care Teams Surveyor'S Assistant Relationship Specialty Start Date End Date Syed Leong MD PCP - General 04/08/09 0 documented as of this encounter
--- OUTSIDE RECORDS SUMMARY | 2022-02-27 01:26 | XMS_ITS | Encounter Summary ---
:1980 Author Organization [facility] Address [address] [place] [address] Care Team Providers Name Role Phone Syed Leong MD Primary Care Provider Unavailable Encounter Details Date Type Department Care Team Description 05/27/2014 Results Only [facility] [address], MD Laboratory Services - [address] [place] [address] [place] [address] [place] [address] [phone] Social History Tobacco Use Types Packs/Day Years [...] Priority Date/Time Associated Comments Diagnosis COMPREHENSIVE Routine 05/27/2014 3:10 Results for this METABOLIC PANEL ([facility]) EDT proce arivne are in the results section. documented in this encounter Results COMPREHENSIVE METABOLIC PANEL ([facility]) (05/27/2014 3:10 EDT) Albumin, External 3.7 3.4 - 5.0 [facility] g/dL [facility] Total Alkaline 72 10 - 117 U/L [facility] Phosphatase, [facility] External Bilirubin, Total, 0.3 0.0 - 1.0 [facility] External mg/dL [facility] Bun, External 11 7 - 18 mg/dL [facility] Calcium, External 9.3 8.5 - 10.1 [facility] mg/dL [facility] Chloride, External 105 98 - 107 [facility] mEq/L [facility] CO2, External 28 21 - 32 mEq/L [facility] Creatinine, 1.0 0.5 - 1.4 [facility] External mg/dL [facility] GFR, Kelvin/Est., >60 [facility] External Comment: [facility] Chronic renal impairment is defined as GFR <60 Multiply result by 1.210 for patients . Glucose, Serum, 93 70 - 100 [facility] External mg/dL [facility] Potassium, 4.1 3.5 - 5.0 [facility] External mEq/L [facility] Sodium, External 137 135 - 145 [facility] mEq/L [facility] Total Protein, 7.0 6.4 - 8.2 [facility] External gm/dl [facility] AST, External 20 10 - 37 U/L [facility] ALT, External 36 12 - 78 U/L [facility] Specimen Narrative [facility] - 014 3:51 EDT Does PT Have a Latex Allergy? NO Performing Organization Address City/State/ZIP Code Phon e Number [facility] [address] [place], [place] [id number] [place] [address] LAB documented in this encounter Visit Diagnoses Not on filedocumented in this encounter Care Teams Concrete Pouring Supervisor Relationship Specialty Start Date End Date Syed Leong MD PCP - General 04/08/09 0 documented as of this encounter
--- OUTSIDE RECORDS SUMMARY | 2022-02-27 01:26 | XMS_ITS | Encounter Summary ---
:1980 Author Organization [facility] Address [address] [place] [address] Care Team Providers Name Role Phone Syed Leong MD Primary Care Provider Unavailable Reason for Visit Reason Comments Sinus Problems Pt here today w/ cold sx's f or 10+ days; cough, sore throat, runny nose, sinus drainage/ pressu re / chills- no known fevers Encounter Details Date Type Department Care Team Description 10/18/2013 Office Visit [facility] Unknown, Prov MD petrona Sinusitis, acute (Primary Dx); Family Medicine - Cruzito Howell FNP [address] [place] [phone] Encounter for smoking cessation counseli [address] [place], [place] [address] Social History Tobacco Use Types Packs/Day Years [...] Sign Reading Time Taken Comments Blood Pressure 140/80 10/18/2013 1454 EST Pulse 68 10/18/2013 1454 EST Temperature 37.1 ??C (98.7 ??F) 10/18/2013 1454 EST Respiratory Rate - - Oxygen Saturation - - Inhaled Oxygen Concentration - - Weight 83.4 kg (183 lb 12.8 oz) 10/18/2013 1454 EST Height - - Body Mass Index 27.34 11/29/2012 1403 EDT documented in this encounter Patient Instructions Patient InstructionsCruzito Howell - 10/18/2013 15:24 EST I want to follow up with you in around 1 month to make sure you are tolerating the wellbutrin (bupropion) and not having any problems. Call before then if you have any concerns. Sinusitis can be caused by a number of things, but it nearly always continues because of congestion,so that is one of the things we need to focus on. Antibiotics are not always the best answer. It is really important to to rest, push fluids and give yourself time to feel better. You can use over the counter cough medicines containing guaifenasin, but avoid using things like sudafed or mucinex which can raise your blood pressure. Using allergy medications like loratadine (generic Claritin) can be very helpful as well - allergies can keep the congestion going in the winter especially. In addition tothat, I recommend using a neti pot 2-3 times per day. You can use the NeilMed Sinus Rinse which works well (it's a squeeze bottle which is easier to use than the traditional neti pot). Make sure yourhome is humidified - if you have a wood stove or forced hot air that can dry the air out and push a lot of dust into the air, and that can make these symptoms worse. If you aren't feeling better after 2-3 weeks or if things worsen significantly before then please call and let me know. documented in this encounter Ordered Prescriptions Prescription Sig Dispensed Refills Start Date End Date loratadine (CLARITIN) 10 Take 1 Tab by mouth 90 Tab 3 03/01/2014 mg tabletIndications: daily. Sinusitis, acute fluticasone (FLONASE) 50 Instill 2 Sprays 3 Bottle 3 10/1804/23/2015 mcg/actuation nasal into both nostrils sprayIndications: daily for 90 days. Sinusitis, acute buPROPion (WELLBUTRIN XL) Take 1 Tab by mouth 30 Tab 2 0 10/18/2013 03/01/2014 150 mg XL tablet every morning. documented in this encounter Progress Notes Cruzito Howell - 10/18/2013 9397 EST Subjective: Patient ID: Flavio Hamm is an 32 y.o. male. Chief Complaint Patient presents with ??? Sinus Problems Pt here today w/ cold sx's for 10+ days; cough, sore throat, runny nose, sinus drainage/ pressure /chills- no known fevers HPI Patient is here today with upper respiratory symptoms, started mid-September (~2 weeks ago). Sinus pressure, sore throat, ear pressure. Fatigue, chills. Runny nose. No identified fevers. No nausea, no vomiting, no diarrhea. He has a deviated septum, and has seen Dr. Melgoza for this in the past. He uses a Sinus Rinse regularly. He states he gets sinus infections at least yearly, oftentimes more frequently than that. He regularly has sinus congestion. He currently smokes ~3/4ppd. Wants to quit. We discussed options at length - he would like to try wellbutrin after a discussion of the risks and benefits of each option. Patient Active Problem List Diagnosis ??? Left-sided tinnitus ??? Hearing loss in left ear ??? Gastroesophageal reflux disease ??? Tobacco dependence syndrome Past Medical History Diagnosis Date ??? Hearing loss Left high frequency with assoc. Tinnitus Current Outpatient Prescriptions on File Prior to Visit Medication Sig Dispense Refill ??? omeprazole (PRILOSEC) 40 mg capsule Take 1 Cap by mouth daily. 30 Cap 5 No current facility-administered medications on file prior to visit. Allergies Allergen Reactions ??? Augmentin (Amoxicillin-Pot Clavulanate) Swelling of tongue ??? Naproxen Other (See Comments) Throat swelled 08/18 ??? Sulfa (Sulfonamide Antibiotics) Social History Substance Use Topics ??? Smoking status: Current Every Day Smoker -- 1.00 packs/day for 10 years Types: Cigarettes Last Attempt to Quit: 03/25/2009 ??? Smokeless tobacco: Never Used ??? Alcohol Use: Yes Comment: occ Review of Systems Constitutional: Positive for chills and malaise/fatigue. Negative for fever. HENT: Positive for congestion. Negative for ear pain and ear discharge. Sore throat: mild. Eyes: Negative for blurred vision and double vision. Respiratory: Positive for cough and sputum production. Negative for wheezing. Shortness of breath: only with cough. Cardiovascular: Negative for chest pain and palpitations. Gastrointestinal: Negative for nausea, vomiting and diarrhea. Genitourinary: No urinary changes Musculoskeletal: Negative for myalgias and joint pain. Skin: Negative for rash. Neurological: Positive for dizziness and headaches. Negative for tremors and weakness. - See HPI Objective: BP 140/80 Pulse 68 Temp(Src) 37.1 ??C (98.7 ??F) (Oral) Wt 83.371 kg (183 lb 12.8 oz) BMI 27.35 kg/m2 Physical Exam Nursing note and vitals reviewed. Constitutional: He appears well-developed and well-nourished. Mildly ill appearing but in no acute distress HENT: Head: Normocephalic and atraumatic. No trismus in the jaw. Right Ear: Ear canal normal. Tympanic membrane is bulging. Tympanic membrane is not erythematous. Left Ear: Ear canal normal. Tympanic membrane is bulging. Tympanic membrane is not erythematous. Nose: Rhinorrhea present. Right sinus exhibits maxillary sinus tenderness and frontal sinus tenderness. Left sinus exhibits maxillary sinus tenderness and frontal sinus tenderness. Mouth/Throat: Uvula is midline. Mucous membranes are pale. No uvula swelling. Posterior oropharyngeal erythema present. No oropharyngeal exudate, posterior oropharyngeal edema or tonsillar abscesses. Eyes: Pupils are equal, round, and reactive to light. Right eye exhibits no discharge. Left eye exhibits no discharge. No scleral icterus. Neck: Neck supple. No thyromegaly present. Cardiovascular: Normal rate, regular rhythm and normal heart sounds. Pulmonary/Chest: Effort normal and breath sounds normal. No respiratory distress. He has no wheezes. Lymphadenopathy: He has no cervical adenopathy. Neurological: He is alert. Coordination normal. Skin: Skin is warm and dry. Assessment: Sinusitis: Start fluticasone, loratadine daily. Encouraged neti pot use. No abx prescribed today, ifthis is still a problem in two weeks consider a course of doxycycline. Smoking cessation: Started wellbutrin XL 150mg daily today, counseled extensively around this. Plan: Flavio was seen today for sinus problems. Diagnoses and associated orders for this visit: Sinusitis, acute - fluticasone (FLONASE) 50 mcg/actuation nasal spray; Instill 2 Sprays into both nostrils daily for 90 days. - loratadine (CLARITIN) 10 mg tablet; Take 1 Tab by mouth daily. Other Orders - buPROPion (WELLBUTRIN XL) 150 mg XL tablet; Take 1 Tab by mouth every morning. Return in about 1 month (around 11/15/2013) for [facility], [facility] - 15. documented in this encounter Plan of Treatment Not on filedocumented as of this encounter Visit Diagnoses Diagnosis Sinusitis, acute - Primary Acute sinusitis, unspecified Encounter for smoking cessation counseli jatinder Counseling on substance use and abuse documented in this encounter Discontinued Medications Medication Sig Discontinue Reason Start Date End Date varenicline (CHANTIX) Take 1 tablet PO Therapy completed 08/18/2013 10/18/2013 0.5 mg daily X 3 days, then tabletIndications: 1 tablet PO twice Tobacco dependence daily times 4 days then stop and initiate 1 mg tablets. varenicline (CHANTIX) 1 Take 1 tablet twice Therapy completed 08/2510/18/2013 mg tabletIndications: daily after the Tobacco dependence seven days of using the.5 mg tablets. documented as of this encounter Care Teams Wind Project Manager Relationship Specialty Start Date End Date Syed Leong MD PCP - General 04/08/09 0 documented as of this encounter
--- OUTSIDE RECORDS SUMMARY | 2022-02-27 01:26 | XMS_ITS | Encounter Summary ---
:[address] [facility] Address [address] [place] [address] Care Team Providers Name Role Phone Syed Leong MD Primary Care Provider Unavailable Reason for Referral Consult (Routine) - Closed Specialty Diagnoses / Procedures Referred By Contact Refer red To Contact Otolaryngology Diagnoses Vertigo Tinnitus Syed Leong MD Rose, James Gary, MD [address] [facility] [address] [place] [id number] [place] [address] [address] [place] [phone] Phone: Fax: Referral ID Status Reason Start Date Expiration Date Visits V isits Requested Authorized [id number] Closed Specialty 12/01/2010 1 1 Services Required Question Answer Reason for Request: vertigo and tinnitus Comments ENT/audiology Reason for Visit Reason Comments Dizziness Encounter Details Date Type Department Care Team Description 12/01/2010 Office Visit [facility] Syed Leong MD Vertigo; Medicine [facility] Tinnitus [address] [facility] [address] [place] [address] Social History Tobacco Use Types Packs/Day Years Used Date Former Smoker Quit: 03/25/20 09 Sex Assigned at Date Recorded Male 03/11/2020 9:13 EDT documented as of this encounter Last Filed Vital Signs Vital Sign Reading Time Taken Comments Blood Pressure 130/80 12/01/2010 1621 EDT Pulse 88 12/01/2010 1621 EDT Temperature - - Respiratory Rate - - Oxygen Saturation - - Inhaled Oxygen Concentration - - Weight 87.9 kg (193 lb 12.8 oz) 12/01/2010 1621 EDT Height - - Body Mass Index - - documented in this encounter Progress Notes Syed Leong MD - 12/08/2010 0653 EDT [facility] PROGRESS/FOLLOWUP NOTE - 12/01/2010 SUBJECTIVE: He is here with vertigo and tinnitus. This is an intermittent problem that has been going on for a year and a half to 2 years. It is associated with his left ear. He will get periods of a week at a time where he will get tinnitus in the left ear and will get episodes of vertigo. The vertigo may only last a few seconds, at most 15 or 20 seconds. He does not usually get vertigo without the tinnitus and if he has the tinnitus, he almost always has some vertigo as well. The episodes seem to be triggered by a loud noise exposure. He does tryto wear ear plugs. He does not notice any nausea. He thinks he generally has some hearing loss in that ear anyways. His current episode has been going on for 2 weeks. OBJECTIVE: He looks well. He has a negative Romberg, normal gait, normal EOMs, normal TMs and canals, normal tandem gait. ASSESSMENT: I am concerned about his left inner ear. I do not know if he has an element of Meniere'sdisease or if there is some other process going on here. He needs ENT evaluation. PLAN: 1. Referral to ENT and audiology for further evaluation. 2. I told him it is definitely okay to use the ear plugs and gave him some education regarding the anatomy and physiology of the ear hearing and balance. Electronically Signed by Syed Leong MD 12/08/2010 06:53 Syed Leong MD - Syed Leong MD - SHARON Job ID: SM Doc ID: [id number] Ext Doc ID: [id number] cc: Syed Quan MD - 12/01/2010 1712 EDT Vertigo and tinnitus, left ear hearing loss. Episodes triggered by loud noise exposure. Referral to ENT This office note has been dictated. documented in this encounter Plan of Treatment Scheduled Referrals Name Type Priority Associated Diagnoses Order S chedule AMB CONSULT ENT Outpatient Referral Routine Vertigo Ordered: 12/01/2010 Tinnitus documented as of this encounter Visit Diagnoses Diagnosis Vertigo Dizziness and giddiness Tinnitus Unspecified tinnitus documented in this encounter Discontinued Medications Medication Sig Discontinue Reason Start Date End Date azithromycin (ZITHROMAX) Take 1 Tab by mouth. Therapy completed 12/01/2010 250 mg tablet Take 2 tablets (500 mg) on Day 1, followed by 1 tablet (250 mg) once daily on Days 2 through 5. OMEPRAZOLE (PRILOSEC Take by mouth daily. Therapy completed 12/01/2010 ORAL) documented as of this encounter Care Teams Grinder And Plater Relationship Specialty Start Date End Date Syed Leong MD PCP - General 04/08/09 0 documented as of this encounter
--- OUTSIDE RECORDS SUMMARY | 2022-02-27 01:26 | XMS_ITS | Encounter Summary ---
:1980 Author Organization [facility] Address [address] [place] [address] Care Team Providers Name Role Phone Syed Leong MD Primary Care Provider Unavailable Reason for Visit Reason Comments URI Pt stopped smoking 04/08/13-p t states he has had a cold for 4 weeks-within the past week, no energy, de ep cough (pt states not from smoking-something new) sore throats,pain behind ears Facial Pain sinus pressure below eyes-ch eeks Encounter Details Date Type Department Care Team Description 04/10/2013 Office Visit [facility] Tyler Berman Sinus itis (Primary Dx) Family Medicine - [place], [place] [address] Social History Tobacco Use Types Packs/Day Years Used Date Former Smoker 1 10 Quit: 03/25/20 09 Alcohol Use Standard Drinks/Week Comments Yes 0 (1 standard drink = 0.6 oz pure alcoho l) occ Sex Assigned at Date Recorded Male 03/11/2020 9:13 EDT documented as of this encounter Last Filed Vital Signs Vital Sign Reading Time Taken Comments Blood Pressure 138/92 04/10/2013 1319 EDT Pulse 62 04/10/2013 1319 EDT Temperature 36.6 ??C (97.8 ??F) 04/10/2013 1319 EDT Respiratory Rate - - Oxygen Saturation - - Inhaled Oxygen Concentration - - Weight 85.8 kg (189 lb 3.2 oz) 04/10/2013 1319 EDT Height - - Body Mass Index 28.14 11/29/2012 1403 EDT documented in this encounter Ordered Prescriptions Prescription Sig Dispensed Refills Start Date End Date cefUROXime (CEFTIN) 500 mg Take 1 Tab by mouth 20 Tab 0 04/10/2013 04/20/2013 tabletIndications: 2 times daily for Sinusitis 10 days. documented in this encounter Progress Notes Tyler Berman PA-C - 04/10/2013 1638 EDT Subjective: Patient ID: Flavio Hamm is an 32 y.o. male. Chief Complaint Patient presents with ??? URI Pt stopped smoking 04/08/13-pt states he has had a cold for 4 weeks-within the past week, no energy,deep cough (pt states not from smoking-something new) sore throats,pain behind ears ??? Facial Pain sinus pressure below eyes-cheeks URI This is a new problem. Episode onset: 4 weeks ago. The problem has been gradually worsening. There has been no fever. Associated symptoms include congestion, coughing, rhinorrhea and sinus pain. Pertinent negatives include no chest pain or sore throat. He has tried steam (Saline rinses.) for the symptoms. The treatment provided no relief. Facial Pain Associated symptoms include coughing. Pertinent negatives include no chest pain. Patient Active Problem List Diagnoses ??? Left-sided [...] Use: Yes occ Review of Systems Constitutional: Negative for fever and chills. HENT: Positive for congestion and rhinorrhea. Negative for sore throat. Respiratory: Positive for cough. Negative for sputum production. Cardiovascular: Negative for chest pain. - See HPI Objective: BP 138/92 Pulse 62 Temp(Src) 36.6 ??C (97.8 ??F) (Oral) Wt 85.821 kg (189 lb 3.2 oz) Physical Exam Constitutional: He appears well-developed and well-nourished. No distress. HENT: Right Ear: Tympanic membrane normal. Left Ear: Tympanic membrane normal. Mouth/Throat: Oropharynx is clear and moist. Moderate nasal congestion; maxillary sinus pain L>R. Eyes: Conjunctivae normal are normal. Cardiovascular: Normal heart sounds. Pulmonary/Chest: Breath sounds normal. Lymphadenopathy: He has no cervical adenopathy. Assessment: Persistent respiratory illness, secondary sinusitis. Plan: Flavio was seen today for uri and facial pain. Diagnoses and associated orders for this visit: Sinusitis - cefUROXime (CEFTIN) 500 mg tablet; Take 1 Tab by mouth 2 times daily for 10 days. Continue increased fluids, nasal steam. Antibiotics as prescribed. Follow up with persistent/worsening symptoms. documented in this encounter Plan of Treatment Not on filedocumented as of this encounter Visit Diagnoses Diagnosis Sinusitis - Primary Unspecified sinusitis (chronic) documented in this encounter Care Teams Life Skills Consultant Relationship Specialty Start Date End Date Syed Leong MD PCP - General 04/08/09 0 documented as of this encounter
--- OUTSIDE RECORDS SUMMARY | 2022-02-27 01:26 | XMS_ITS | Encounter Summary ---
:1980 Author Organization [facility] Address [address] [place] [address] Care Team Providers Name Role Phone Syed Leong MD Primary Care Provider Unavailable Encounter Details Date Type Department Care Team Description 09/01/2006 Before PRISM Converted [facility] - Syed Leong, Visit ([place]) Maple conversion MD [address] [place] [address] Social History Tobacco Use Types Packs/Day Years Used Date Never Assessed Sex Assigned at Date Recorded Male 03/11/2020 9:13 EDT documented as of this encounter Progress Notes Syed Leong MD - 09/16/2009 2336 EST [facility] PROGRESS/FOLLOWUP NOTE - 09/01/2006 SUBJECTIVE: He is here with right sided sciatica. This began 2??-3 weeks ago after some heavy lifting at work, then a week later he had further injury when he was hit playing football. He is not havingpain in the right buttock which shoots down the right leg to the level of the ankle. It is worse getting in and out of a chair, in and out of a truck, bending over. There is some intermittent tingling in the leg. He is limping at times. He has not had any weakness. He has not had this problem before. OBJECTIVE:KJs, AJs +2 bilaterally. Normal strength in the right leg and foot. Positive straight leg raise to 45 degrees on the right. Normal range of motion at the hip. ASSESSMENT: Sciatica. PLAN: 1. Medrol Dosepak. 2. Tylenol up to 4000 mg daily as needed. 3. Heat. 4. Rest and avoid lifting and bending. 5. Contact us if worsening or persistent symptoms. Signed by Syed Leong MD 09/04/2006 09:58 Marcello Bennett MD Syed Leong MD - Syed Leong MD [employer] Job ID: [id number] Document ID: [id number] cc: Linwood Leong MD [employer] Job ID: [id number] Document ID: [id number] cc: documented in this encounter Plan of Treatment Not on filedocumented as of this encounter Visit Diagnoses Not on filedocumented in this encounter Care Teams Rig Builder Relationship Specialty Start Date End Date Syed Leong MD PCP - General 04/08/09 0 documented as of this encounter
--- OUTSIDE RECORDS SUMMARY | 2022-02-27 01:26 | XMS_ITS | Encounter Summary ---
:1980 Author Organization [facility] Address [address] [place] [address] Care Team Providers Name Role Phone Syed Leong MD Primary Care Provider Unavailable Reason for Visit Reason Onset Date Comments Sinusitis 11/21/2011 Encounter Details Date Type Department Care Team Description 11/21/2011 Telephone [facility] Family Syed Leong MD Sinusitis Medicine - [address] [place] [id number] Social History Tobacco Use Types Packs/Day Years Used Date Former Smoker 1 10 Quit: 03/25/20 09 Alcohol Use Standard Drinks/Week Comments Yes 0 (1 standard drink = 0.6 oz pure alcoho l) occ Sex Assigned at Date Recorded Male 03/11/2020 9:13 EDT documented as of this encounter Miscellaneous Notes Telephone Encounter - Syed Leong MD - 11/21/2011 1001 EST We talked this morning. I don't think he should still be on an antibiotics. They may actually be causing the sore throat. He should stop the meds and come in for OV next week if things are not improving. elephone Encounter - Aisha Torres - 11/21/2011 0948 EST Pt called. He was in about 10 days ago and saw Gus who prescribed something for a sinus infection. He still has more of it to take, but he has a very bad sore throat. He doesn't think the antibioticis working and is hoping for something else. Will you call in something different? Please advise. documented in this encounter Plan of Treatment Not on filedocumented as of this encounter Visit Diagnoses Not on filedocumented in this encounter Care Teams Community Nutrition Educator Relationship Specialty Start Date End Date Syed Leong MD PCP - General 04/08/09 0 documented as of this encounter
--- OUTSIDE RECORDS SUMMARY | 2022-02-27 01:26 | XMS_ITS | Encounter Summary ---
:1980 Author Organization [facility] Address [address] [place] [address] Care Team Providers Name Role Phone Syed Leong MD Primary Care Provider Unavailable Reason for Visit Reason Comments Nevus pt states he has a spot on h is back that has been there for quite some time, right shoulder blade, mole h as changed, painful at times Encounter Details Date Type Department Care Team Description 03/01/2014 Office Visit [facility] Unknown, Prov MD petrona Sebaceous cyst (Primary Dx); Family Medicine - Cruzito Howell FNP [address] [place] [id number] Tobacco dependence syndrome [address] [place] [address] Social History Tobacco Use Types Packs/Day Years Used Date Former Smoker Cigarettes 10 Quit: 03/25/20 09 Smokeless Tobacco: Never Used Alcohol Use Standard Drinks/Week Comments Yes 0 (1 standard drink = 0.6 oz pure alcoho l) occ Sex Assigned at Date Recorded Male 03/11/2020 9:13 EDT documented as of this encounter Last Filed Vital Signs Vital Sign Reading Time Taken Comments Blood Pressure 122/76 03/01/2014 0858 EDT Pulse 72 03/01/2014 0858 EDT Temperature - - Respiratory Rate - - Oxygen Saturation - - Inhaled Oxygen Concentration - - Weight 81.2 kg (179 lb) 03/01/2014 0858 EDT Height - - Body Mass Index 26.63 11/29/2012 1403 EDT documented in this encounter Progress Notes Cruzito Howell - 03/01/2014 0916 EDT Subjective: Patient ID: Flavio Hamm is an 33 y.o. male. Chief Complaint Patient presents with ??? Nevus pt states he has a spot on his back that has been there for quite some time, right shoulder blade, mole has changed, painful at times HPI Flavio Hamm, a 33 y.o. male is here today for evaluation of a skin lesion on his back He has stopped stopped smoking since last seen here, and stopped the bupropion as well. Outpatient Prescriptions Marked as Taking for the 03/01/14 encounter (Office Visit) with Cruzito Howell NP Medication Sig Dispense Refill ??? omeprazole (PRILOSEC) 40 mg capsule Take 1 Cap by mouth daily. 30 Cap 5 No Facility-Administered Medications for the 03/01/14 encounter (Office Visit) with Cruzito Howell NP. [...] Yes Comment: occ Review of Systems Constitutional: Negative for fever, chills and malaise/fatigue. Respiratory: Negative for cough, shortness of breath and wheezing. Cardiovascular: Negative for chest pain and palpitations. Skin: Positive for itching and rash. See HPI - See HPI Objective: BP 122/76 Pulse 72 Wt 81.194 kg (179 lb) BMI 26.63 kg/m2 Physical Exam Nursing note and vitals reviewed. Constitutional: He is oriented to person, place, and time. He appears well- developed and well-nourished. No distress. HENT: Head: Normocephalic and atraumatic. Eyes: No scleral icterus. Neurological: He is alert and oriented to person, place, and time. Skin: Skin is warm and dry. Right mid back: ~14mm in diameter, raised, slightly erythematous, grossly consistent with sebaceous cyst (inflamed) Assessment: Sebaceous cyst, right mid back, inflamed: He will return for excision Smoking: Excellent job quitting smoking, congratulated him heartily Plan: There are no diagnoses linked to this encounter. documented in this encounter Plan of Treatment Not on filedocumented as of this encounter Visit Diagnoses Diagnosis Sebaceous cyst - Primary Tobacco dependence syndrome Tobacco use disorder documented in this encounter Discontinued Medications Medication Sig Discontinue Reason Start Date End Date buPROPion (WELLBUTRIN Take 1 Tab by Patient Stopped Taking 10/18/19 14 03/01/2014 XL) 150 mg XL tablet mouth every morning. loratadine (CLARITIN) Take 1 Tab by Patient Stopped Taking 10/18/19 14 03/01/2014 10 mg mouth daily. tabletIndications: Sinusitis, acute documented as of this encounter Care Teams Passenger Service Representative Relationship Specialty Start Date End Date Syed Leong MD PCP - General 04/08/09 0 documented as of this encounter
--- OUTSIDE RECORDS SUMMARY | 2022-02-27 01:26 | XMS_ITS | Encounter Summary ---
:[address] [facility] Address [address] [place] [address] Care Team Providers Name Role Phone Syed Leong MD Primary Care Provider Unavailable Reason for Visit Reason Onset Date Comments Update 10/07/2012 Encounter Details Date Type Department Care Team Description 10/07/2012 Telephone [facility] Family Syed Leong MD Update Medicine - [address] [address] Social History Tobacco Use Types Packs/Day Years Used Date Former Smoker 1 10 Quit: 03/25/20 09 Alcohol Use Standard Drinks/Week Comments Yes 0 (1 standard drink = 0.6 oz pure alcoho l) occ Sex Assigned at Date Recorded Male 03/11/2020 9:13 EDT documented as of this encounter Miscellaneous Notes Telephone Encounter - Syed Leong MD - 10/07/2012 1801 EST Suspect blood=nose bleed, posterior drainage, not esophageal origin. Recommended moisturizing the air and using saline nose spray. He will call if things get worse or don't get better. elephone Encounter - Cici Contreras - 10/07/2012 1002 EST Pt was told by Rodríguez Berman to call if sxs worsen,pt had blood in his throat this morning,had to spit out. Also, sinus congestion worsening, please call Joanie at home to advise.pc documented in this encounter Plan of Treatment Not on filedocumented as of this encounter Visit Diagnoses Not on filedocumented in this encounter Care Teams Systems Engineer Relationship Specialty Start Date End Date Syed Leong MD PCP - General 04/08/09 0 documented as of this encounter
--- OUTSIDE RECORDS SUMMARY | 2022-02-27 01:26 | XMS_ITS | Encounter Summary ---
:1980 Author Organization [facility] Address [address] [place] [address] Care Team Providers Name Role Phone Syed Leong MD Primary Care Provider Unavailable Reason for Visit Reason Onset Date Comments Other 06/21/2010 Encounter Details Date Type Department Care Team Description 06/21/2010 Telephone [facility] Syed Leong MD Other Medicine - [address] [address] Social History Tobacco Use Types Packs/Day Years Used Date Former Smoker Quit: 03/25/20 09 Sex Assigned at Date Recorded Male 03/11/2020 9:13 EDT documented as of this encounter Ordered Prescriptions Prescription Sig Dispensed Refills Start Date End Date amoxicillin (AMOXIL) 500 Take 2 Caps by 40 Cap 0 010 06/24/2010 mg capsule mouth 2 times daily. documented in this encounter Miscellaneous Notes Telephone Encounter - Dona Stewart - 06/21/2010 1154 EDT Message left rx called to [facility] elephone Encounter - Gus Crenshaw MD - 06/21/2010 1147 EDT I sent the Rx to the pharmacy. To [facility] for amoxicillin. elephone Encounter - Dona Stewart - 06/21/2010 1129 EDT Can leave message if they dont answer elephone Encounter - Dona Stewart - 06/21/2010 1128 EDT Pt has been experiencing stuffy congested nose, sore throat, going on about 5 days, did call in regards to this same thing pt could not get here They are asking for suggestions? [phone] documented in this encounter Plan of Treatment Not on filedocumented as of this encounter Visit Diagnoses Not on filedocumented in this encounter Discontinued Medications Medication Sig Discontinue Reason Start Date End Date amoxicillin (AMOXIL) 500 Take 2 Caps by Reorder 03/27/2010 1 mg capsule mouth 2 times daily. documented as of this encounter Care Teams Inspector Casing Relationship Specialty Start Date End Date Syed Leong MD PCP - General 04/08/09 0 documented as of this encounter
--- OUTSIDE RECORDS SUMMARY | 2022-02-27 01:26 | XMS_ITS | Encounter Summary ---
:1980 Author Organization [facility] Address [address] [place] [address] Care Team Providers Name Role Phone Syed Leong MD Primary Care Provider Unavailable Reason for Referral Radiology Services (Routine) - Closed Specialty Diagnoses / Procedures Referred By Contact Refer red To Contact Diagnoses Unspecified sinusitis (chronic) Deviated nasal septum Christopher Melgoza MD Procedures CT SINUSES [address] [facility] [address] [place] [address] Referral ID Status Reason Start Date Expiration Date Visits Requ ested Visits Authorized [id number] Closed 11/24/2011 1 1 Reason for Visit Reason Comments Sinusitis has been having sinus infect ions for the past few years, has been treated with antibiotics many times. wakes up with sore throat most days. Not a lot of H/a gets nasal congestion and sore throat. Encounter Details Date Type Department Care Team Description 11/24/2011 Office Visit [facility] ENT Unknown, Provider, Unspecified sinusitis (chronic); - Christopher Culver MD [address] [facility] [address] [place] [address] Deviated nasal septum [address] [place] [address] Social History Tobacco Use Types Packs/Day Years Used Date Former Smoker 1 10 Quit: 03/25/20 09 Alcohol Use Standard Drinks/Week Comments Yes 0 (1 standard drink = 0.6 oz pure alcoho l) occ Sex Assigned at Date Recorded Male 03/11/2020 9:13 EDT documented as of this encounter Last Filed Vital Signs Vital Sign Reading Time Taken Comments Blood Pressure 117/89 11/24/2011 1538 EDT Pulse 70 11/24/2011 1538 EDT Temperature 36.8 ??C (98.2 ??F) 11/24/2011 1538 EDT Respiratory Rate 20 11/24/2011 1538 EDT Oxygen Saturation - - Inhaled Oxygen Concentration - - Weight - - Height - - Body Mass Index - - documented in this encounter Progress Notes Christopher Melgoza MD - 11/24/2011 4499 EDT This is a consult from Dr Syed Leong and Dr Nette Arteaga for evaluation of chronic sinusitis. HISTORY OF PRESENT ILLNESS: This is a 30-year-old male with a several year history of chronic sinus infections with complains mostly of sore throat and nasal congestion of mild to moderate severity, intermittent. He has an infection approximately every few months lasting three weeks at a time, usuallycontrolled with antibiotics, no headache or nasal discharge or fever, mainly a sore throat and nasalcongestion. Past medical history is significant for hearing loss and tinnitus in the left ear. Previous surgeries include hernia repair. Family history is noncontributory. SOCIAL HISTORY: The patient a former smoker, quit in 2008. He has drug allergies to NAPROXYN. Current medications include Ceftin and Flonase. Review of systems is otherwise negative for complete review of all systems. OBJECTIVE: General: Well-developed, well-nourished, cooperative adult male in no acute distress. Normal voice. Vital signs: Blood pressure 117/89, pulse 70, respirations 20, temperature 98.2. No reportable pain. The face is normal without lesions. No tenderness. Salivary glands are normal. Facial strength is symmetric. Eye exam is normal. Ears: External ears are normal, canals are clear, tympanic membranes are normal. Hearing is intact. Nose: Nasal dorsum is midline, the airway is intact. Oral cavity and posterior pharynx is clear. Tonsils are present. Neck: No pathologic lymphadenopathy. Trachea is midline. Thyroid is normal. Chest is clear to auscultation. Heart: Regular rate and rhythm. PROCEDURE: Fiberoptic nasal endoscopy was performed with topical anesthesia. This reveals a right superior nasal septal deviation and left inferior septal spur. Both middle meati are clear. No polyps or purulence. The nasopharynx is clear. The base of tongue, epiglottis, vallecula, piriform sinuses, false vocal cords and true vocal cords are within normal limits. IMPRESSION: Nasal septal deviation and recurrent sinusitis. PLAN: Will obtain a limited CT scan of the perinasal sinuses. Follow up after CT. CC: Nette Arteaga MD documented in this encounter Plan of Treatment Scheduled Orders Name Type Priority Associated Diagnoses Order S chedule CT SINUSES Imaging Routine Unspecified sinu sitis (chronic) Ordered: 11/24/2011 Deviated nasal septum documented as of this encounter Visit Diagnoses Diagnosis Unspecified sinusitis (chronic) Deviated nasal septum documented in this encounter Care Teams Regional Forester Relationship Specialty Start Date End Date Syed Leong MD PCP - General 04/08/09 0 documented as of this encounter
--- OUTSIDE RECORDS SUMMARY | 2022-02-27 01:26 | XMS_ITS | Encounter Summary ---
:1980 Author Organization [facility] Address [address] [place] [address] Care Team Providers Name Role Phone Syed Leong MD Primary Care Provider Unavailable Reason for Visit Reason Onset Date Comments URI 03/27/2010 Encounter Details Date Type Department Care Team Description 03/27/2010 Telephone [facility] Syed Leong MD [address] [address] Social History Tobacco Use Types Packs/Day Years Used Date Former Smoker Quit: 03/25/20 09 Sex Assigned at Date Recorded Male 03/11/2020 9:13 EDT documented as of this encounter Ordered Prescriptions Prescription Sig Dispensed Refills Start Date End Date amoxicillin (AMOXIL) 500 Take 2 Caps by 40 Cap 0 010 06/21/2010 mg capsule mouth 2 times daily. documented in this encounter Miscellaneous Notes Telephone Encounter - Mishel Delarosa - 03/27/2010 1312 EDT done elephone Encounter - Ml Parker - 03/27/2010 1311 EDT Pt notified Telephone Encounter - Syed Leong MD - 03/27/2010 1015 EDT I sent the Rx to the pharmacy. Please call patient. elephone Encounter - Dona Stewart - 03/27/2010 0832 EDT Pt saw MOUNA couple days ago for sinus infection, he was not prescribed anything. Today he is worse, now has headache, running nose is worse, w/little bit of bleeding. KJ advised pt to call if no better. He also has a sore throat. Ongoing x 2 weeks Can something be called in for him w/out having to come back in? Spouse called [phone] documented in this encounter Plan of Treatment Not on filedocumented as of this encounter Visit Diagnoses Not on filedocumented in this encounter Care Teams New Car Make Ready Mechanic Relationship Specialty Start Date End Date Syed Leong MD PCP - General 04/08/09 0 documented as of this encounter
== END 2022-02-27 01:23 | disposition home or self-care (01) ==
LOC: LBO 01:23
PROVIDERS: PCP Family Medicine; Visit Provider Urology

== ENCOUNTER 2022-05-01 15:51 | Emergency (ER) | payer MEDICAID, SELFPAY ==
[2022-05-01 15:55] VITALS: BP 135/91; PULSE 81; RESP 18; TEMP 36.8; O2SAT 97
--- NOTE | 2022-05-01 16:30 | DI.RAD_ITS ---
Exam(s) XR KNEE LT 3V AP,LAT,OTF EXAM: XR KNEE LT 3V AP,LAT,OTF CLINICAL HISTORY: L medial knee pain TECHNIQUE: COMPARISON: No exams were available for comparison FINDINGS: Three views were obtained. There is no evidence of acute fracture or dislocation. IMPRESSION: RADIATION DOSE DELIVERED: Total DLP
--- NOTE | 2022-05-01 16:44 | ED.GENADUL_ITS ---
Discharge Plan Disposition Patient Disposition: HOME Condition: Stable Discharge Details Clinical Impression: Medial joint line tenderness of left knee Primary Care Provider: Kobe Richardson ED Provider: Wilbur Barnett Home Meds and New Rx's Prescriptions: Continued testosterone 20.25 mg/1.25 gram (1.62 %) gel in metered-dose pump 1 pump topical DAILY Qty: 75 5RF Rx Instructions: apply 1 pump amount over max area of ONE upper arm and shoulder vitamin K2 40 mcg tablet 40 mcg PO DAILY ergocalciferol (vitamin D2) 50 mcg (2,000 unit) capsule 50 mcg PO DAILY Discharge Instructions Additional Instructions: Elevate above the level of the heart to reduce pain and swelling. Knee brace with crutches while awake and out of bed. Remove brace daily to perform quad extension/heel sliding range of motion exercises. A referral has been placed to orthopedics. Please call the office at [phone] if you do not hear from them by Wednesday. Return to the ER for any acute concerns. Tylenol and/or ibuprofen as needed for pain. Medical Decision Making 41-year-old male presents with left kne pain. 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 Patient bushra to a standing position he felt pinching pain with weightbearing on the left knee. Patient is tender along the medial joint line. Concern for medial meniscus injury. Referred for x-ray which does not reveal acute skeletal pathology. Will place in knee immobilizer with daily range of motion exercises. Will refer to orthopedics for follow-up. HPI General Mode of arrival: ambulatory . Date/Time Provider Initiated Documentation: 05/01/22 16:29 . Limitations to Documentation: no limitations . Information obtained by: patient and family . History of Present Illness 41 year old M presents to the emergency department with the chief complaint of L medial knee pain, described as moderate, Quality is described as dull, and is localized to the left and lower extremity. Patient reports no radiation. Patient started experiencing this hour(s) and it has been constant. Rest improves symptom(s), Movement worsens symptoms . Patient notes denies fever/chills and weakness. Patient did receive the following treatments prior to arrival, other (crutches) Related Data Home Medications Medication Instructions Recorded Confirmed ergocalciferol (vitamin D2) 50 mcg 50 mcg PO DAILY 08/12/21 03/25/22 (2,000 unit) capsule vitamin K2 40 mcg tablet 40 mcg PO DAILY 04/24/21 12/05/21 testosterone 20.25 mg/1.25 gram 1 pump topical DAILY testosterone 09/02/21 12/05/21 (1.62 %) transdermal gel pump replacement #75 grams Previous Rx's Medication Instructions Recorded testosterone 20.25 mg/1.25 gram 1 pump topical DAILY testosterone 09/02/21 (1.62 %) transdermal gel pump replacement #75 grams Allergies Allergy/AdvReac Type Severity Reaction Status Date / Time amoxicillin Allergy Severe Verified 05/01/22 15:59 bupropion [From Wellbutrin] Allergy Intermediate Verified 05/01/22 15:59 Sulfa (Sulfonamide Allergy Unknown Unverified 05/01/22 15:59 Antibiotics) General Stated Complaint: Orthopedic BECKIE: 4 Review of Systems Narrative: .. 4 systems reviewed and otherwise negative PFSH All Active Problems (Updated 05/01/22 @ 17:32 by Wilbur Barnett MD) Medial joint line tenderness of left knee (Acute) Vertigo (Acute) Obstructive sleep apnea (Chronic) Chronic daily headache (Acute) Fatigue (Acute) Burn (Acute) Cellulitis (Acute) Aphasia (Acute) Headache (Acute) History of paresthesia (Acute) Dysuria (Acute) Medical History Acoustic neuroma Dyspnea on exertion Elevated white blood cell count GERD (gastroesophageal reflux disease) Hearing loss, left Hypertension Indirect inguinal hernia Left-sided Richardson's palsy Lower back pain Nicotine dependence Retinal defect Rotator cuff syndrome right UTI (urinary tract infection) Vitamin D deficiency Weakness Surgical History S/P appendectomy S/P excision of acoustic neuroma S/P hernia repair Social History Smoking/Tobacco Use Status: Former Tobacco Use Smoking risk assessment performed?: Yes Alcohol Intake: former Substance use type: does not use Details: no alcohol or tobacco for years Household members: spouse Number of Children: 4 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 Pleasant, well groomed, interactive. HEAD: Normocephalic, atraumatic ENT: Mucous membranes moist, oropharynx unremarkable, External ear exam unremarkable EYES: PERRL, EOMI NECK: Full ROM, no LETTY, no menigismus CHEST/RESP: No respiratory distress EXT: Full ROM, mild edema left medial knee. Patient is tender along the medial joint line. No laxity appreciated. Neuro: Grossly normal neurologic exam, conversant, interactive. Psych: Speech fluent, thoughts congruent, affect normal Course Vital Signs Vital signs: Vital Signs Temperature 36.8 C 05/01/22 15:55 Pulse 81 05/01/22 15:55 Respiratory Rate 18 05/01/22 15:55 Blood Pressure 135/91 H 05/01/22 15:55 Pulse Oximetry 97 05/01/22 15:55 Temperature 36.8 C 05/01/22 15:55 Temperature Source Temporal Artery Scan 05/01/22 15:55 Pulse 81 05/01/22 15:55 Respiratory Rate 18 05/01/22 15:55 Respiratory Effort Non-Labored 05/01/22 15:59 Blood Pressure 135/91 H 05/01/22 15:55 Blood Pressure Position Sitting 05/01/22 15:55 Pulse Oximetry 97 05/01/22 15:55 Oxygen Delivery Method Room Air 05/01/22 15:55 Oxygen Flow Rate 0 05/01/22 15:55
--- NOTE | 2022-05-01 17:19 | DI.VRAD_ITS ---
PROCEDURE INFORMATION: Exam: XR Left Knee Exam date and time: 05/01/2022 4:58 PM Age: 41 years old Clinical indication: Left; Patient HX: L medial knee pain TECHNIQUE: Imaging protocol: Radiologic exam of the Left knee. Views: 3 views. COMPARISON: No relevant prior studies available. FINDINGS: Normal anatomic alignment and bone density. No acute fracture, dislocation, or aggressive skeletal lesion. Chronic fragmentation at the tibial tubercle, as can be seen with the sequela of [place]Schl[place] disease. No joint effusions. No significant soft tissue swelling. IMPRESSION: No acute skeletal pathology. Dictated and Authenticated by: Tushar Cooper MD. Ordering:BENI Bowles MD
== END 2022-05-01 18:12 | disposition home or self-care (01) ==
PROVIDERS: Emergency Provider Emergency Medicine; PCP Family Medicine
DX: M25.562 Pain in left knee (principal); Z87.891 Personal history of nicotine dependence; R60.0 Localized edema; I10 Essential (primary) hypertension
CPT/HCPCS: 29505; 73562; 99283; 99282

== ENCOUNTER → 2022-05-22 15:08 | Outpatient (CLI) | payer MEDICAID, SELFPAY ==
--- NOTE | 2022-05-22 | DI.MRI_ITS ---
Exam(s) MR LOWER JOINT LT WO EXAM: MR LOWER JOINT LT WO CLINICAL HISTORY: LT KNEE PAIN, M25.562, PAIN AND EFFUSION X 1 WEEK S/P TWISTING INJURY. TECHNIQUE: Multiplanar multisequence MRI was performed. COMPARISON: CR,XR XR KNEE LT 3V AP,LAT,OTF from 05/01/2022 FINDINGS: BONES: There is no fracture or contusion pattern. JOINTS: Articular cartilage is unremarkable. Probable small effusion. TENDONS: Extensor mechanism: Unremarkable. Medial retinaculum: Unremarkable. Lateral retinaculum: Unremarkable. Popliteus: Unremarkable. MUSCLES: Unremarkable. MENISCI: There is a tear of the body and posterior horn of the medial meniscus. The lateral meniscus is unremarkable. SOFT TISSUES: There is mild edema in the soft tissues of the anterior medial knee. No focal fluid co llection is seen. LIGAMENTS: Anterior Cruciate: The anterior cruciate ligament is intact. There is mild hyperintense signal seen around the tendon and in the distal aspect which may represent a sprain. Posterior Cruciate: Unremarkable. Medial Collateral:Unremarkable. Lateral Collateral: Unremarkable. OTHER: IMPRESSION: 1. Tear of the body and posterior horn of the medial meniscus. 2. Findings suggestive of an ACL sprain. 3. Mild edema in the soft tissues of the anterior medial knee. 4. No evidence of a fracture. DATA REPOSITORY:
--- OUTSIDE RECORDS SUMMARY | 2022-05-22 15:16 | XMS_ITS | Encounter Summary ---
:1980 Author Organization [facility] [place] [address] Care Team Providers Name Role Phone Kobe Richardson MD Primary Care Provider Reason for Visit Reason Comments Central Serous Retinopathy Consultation (Routine) - Closed Specialty Diagnoses / Procedures Referred By Contact Refer red To Contact Ophthalmology Diagnoses Central serous chorioretinopathy, unspecified laterality Tristan Zuleta PA Batra, Nikhil N, MD [facility] [place] [address] [place] [address] Phone: Fax: Referral ID Status Reason Start Date Expiration Date Visits V isits Requested Authorized [id number] Closed Consult, 08/02/2020 08/02/2021 1 1 Test & Treat Encounter Details Date Type Department Care Team Description 10/10/2020 Office Visit Ophthalmology at [facility] Valeriy, Central serous retinopathy, left; [facility] MD Rebecca [place] [place] [address] Center [phone] [place] [id number] Social History Tobacco Use Types Packs/Day Years Used Date Former Smoker Smokeless Tobacco: Never Used Comments: quit a few years ago Alcohol Use Standard Drinks/Week Comments Not Currently 0 (1 standard drink = 0.6 oz pure alcoho l) Sex Assigned at Date Recorded Not on file documented as of this encounter Progress Notes Rebecca Crooks MD - 10/10/2020 9:00 AM EST ASSESSMENT/PLAN: 1. Central serous retinopathy, left 2. Vestibular schwannoma Visual Acuity Visual Acuity (Snellen - Linear) Right Left Dist sc 20/20 20/150 Dist ph sc 20/60 Patient has hx of Richardson's Palsy, diagnosed in 2019. Hx of brain surgery in 2019 1. Central serous chorioretinopathy, OS Dr. Whitley thank you for the kind referral. - Findings: Flavio Hamm is a patient with central serous retinopathy. 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 Oral diuretics were recently found non effective - Plan: Agreed to monitor conservatively given that the condition is inactive 2. Richardson's Palsy -s/p surgery for schwannoma. Uses Refresh PM 8x/day. There is significant PEE. Recommended adding ATs gtts and taping at bedtime Follow up 12 months for DFE, OCT OU I, Valeria Garcia, have performed the documentation for this encounter in the presence of, and acting as a scribe for Rebecca Crooks MD. I performed the services which were documented by the scribe, and I agree with the accuracy of the documentation in this encounter. Rebecca Crooks MD, PhD Extended Ophthalmoscopy Indication: 1. Central serous retinopathy, left 2. Vestibular schwannoma Technique: A) Indirect ophthalmoscopy with scleral depression B) Slit lamp exam with 90D/78D lens Findings: Main Ophthalmology Exam External Exam Right Left External Normal Normal Slit Lamp Exam Right Left Lids/Lashes Normal Normal Conjunctiva/Sclera White and quiet White and quiet Cornea Clear 2-3+ PPE in the inferior half , Punctate stain Anterior Chamber Deep and quiet Deep and quiet Iris Round and reactive Round and reactive Lens Clear Clear Fundus Exam Right Left Vitreous Normal Normal Disc Normal Normal C/D Ratio 0.3 0.3 Macula Normal flat nevus adjacent to the nerve, pigment changes Vessels Normal Normal Periphery Normal Normal documented in this encounter Plan of Treatment Not on filedocumented as of this encounter Procedures Procedure Name Priority Date/Time Associated Diagnosis Comme nts OCT RETINA - OU - Routine 10/10/2020 9:54 AM Central serous Re sults for this BOTH EYES EST retinopathy, left procedure are in the results section. documented in this encounter Results OCT Retina - OU - Both Eyes (10/10/2020 9:54 AM EST) Anatomical Region Laterality Modality Other Specimen (Source) Anatomical Location Collection Method / Collectio n Time Received Time / Laterality Volume Narrative 10/10/2020 9:54 AM EST Right Eye Quality was good. Scan locations include d subfoveal. Progression has no prior data. Findings include normal fove al contour. Left Eye Quality was good. Scan locations include d subfoveal. Progression has no prior data. Findings include subretinal scarring, normal foveal contour. Rebecca Crooks MD [facility] documented in this encounter Visit Diagnoses Diagnosis Central serous retinopathy, left 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 documented in this encounter Care Teams Beef Selector Relationship Specialty Start Date End Date Kobe Richardson MD PCP - General Family Medicine 08/05/20 [place] [id number] documented as of this encounter
--- OUTSIDE RECORDS SUMMARY | 2022-05-22 15:16 | XMS_ITS | Encounter Summary ---
:1980 Author Organization [facility] Address [address] [facility] [address] [facility] [address] [place] [address] Care Team Providers Name Role Phone Kobe Richardson MD Primary Care Provider Reason for Visit - Closed Specialty Diagnoses / Procedures Referred By Contact Refer red To Contact Procedures Kobe Richardson MD Film Library- Storage Only CT [address] [place] [address] Referral ID Status Reason Start Date Expiration Date Visits Requ ested Visits Authorized [id number] Closed 02/05/2021 02/05/2022 1 1 Encounter Details Date Type Department Care Team Description 02/05/2021 Ancillary Procedure Radiology Library at Kobe Richardson MD [facility] [address] [facility] [id number] [place] [address] [phone] Social History Tobacco Use Types Packs/Day Years Used Date Former Smoker Smokeless Tobacco: Never Used Comments: quit a few years ago Alcohol Use Standard Drinks/Week Comments Not Currently 0 (1 standard drink = 0.6 oz pure alcoho l) Sex Assigned at Date Recorded Not on file documented as of this encounter Plan of Treatment Not on filedocumented as of this encounter Procedures Procedure Name Priority Date/Time Associated Diagnosis Comme nts FILM LIBRARY Routine 02/05/2021 10:47 AM Results for this STORAGE ONLY CT EDT procedure ar e in HEAD the results section. documented in this encounter Results Film Library- Storage Only CT Head (02/05/2021 10:47 AM EDT) Specimen (Source) Anatomical Location Collection Method / Collectio n Time Received Time / Laterality Volume Narrative KATARINA - 02/05/2021 10:47 AM EDT This exam is auto-finalizing. It's purpo se is for storage only. Kobe Richardson MD IMG FILM LIBRARY ORDERABLES Performing Organization Address City/State/ZIP Code Phon e Number [place], [place] documented in this encounter Visit Diagnoses Not on filedocumented in this encounter Care Teams Check Pilot Relationship Specialty Start Date End Date Kobe Richardson MD PCP - General Family Medicine 08/05/20 [address] [place] [address] documented as of this encounter
--- OUTSIDE RECORDS SUMMARY | 2022-05-22 15:16 | XMS_ITS | Encounter Summary ---
:1980 Author Organization [facility] [place] [address] Care Team Providers Name Role Phone Kobe Richardson MD Primary Care Provider Encounter Details Date Type Department Care Team Description 01/08/2021 Laboratory Appointment Lab 3L [facility] Chronic fatigue; [facility] Chronic daily headache; [facility] [place] [id number] Social History Tobacco Use Types Packs/Day Years [...] Procedure Name Priority Date/Time Associated Comments Diagnosis HEMOGRAM Routine 01/08/2021 3:29 PM Chronic fatig ue Results for this EDT Chronic daily procedure are in headache the results Sleep disturbance section. DIFFERENTIAL, Routine 01/08/2021 3:29 PM Chronic fatig ue Results for this AUTOMATED EDT Chronic daily procedure are in headache the results Sleep disturbance section. HC PCH Routine 01/08/2021 3:29 PM Chronic fatig ue Results for this TESTOSTERONE,FREE EDT Chronic daily procedure are in headache the results Sleep disturbance section. HC PCH METHYLMALONIC Routine 01/08/2021 3:29 PM Chronic fatigue Results for this ACID EDT Chronic daily procedure are in headache the results Sleep disturbance section. HC VITAMIN D TOTAL-25 Routine 01/08/2021 3:29 PM Chronic fatigue Results for this HYDROXY EDT Chronic daily procedure are in headache the results Sleep disturbance section. HC ESR-SEDIMENTATION Routine 01/08/2021 3:29 PM Chronic fatigue Results for this RATE, BLOOD EDT Chronic daily procedure are in headache the results Sleep disturbance section. HC CBC,PLT & AUTO DIFF Routine 01/08/2021 3:29 PM Chroni c fatigue EDT Chronic daily headache Sleep disturbance HC THYROID STIMULATING Routine 01/08/2021 3:29 PM Chroni c fatigue Results for this HORMONE, SERUM EDT Chronic daily procedure ar e in headache the results Sleep disturbance section. HC FERRITIN, SERUM Routine 01/08/2021 3:29 PM Chronic fa tigue Results for this EDT Chronic daily procedure are in headache the results Sleep disturbance section. HC VITAMIN B12 SERUM Routine 01/08/2021 3:29 PM Chronic fatigue Results for this EDT Chronic daily procedure are in headache the results Sleep disturbance section. COMPREHENSIVE Routine 01/08/2021 3:29 PM Chronic fatig ue Results for this METABOLIC PANEL EDT Chronic daily procedure a re in (NON-FASTING) headache the results Sleep disturbance section. documented in this encounter Results Differential, Automated (01/08/2021 3:29 PM EDT) P athologist Signature Neutrophils % 58.4 % [facility] Neutr Abs (ANC) 4.67 1.70 - [facility] 6.10 [facility] x10(3)/[facility] LABORATORY Lymphocytes % 33.0 % [facility] Lymphocytes Abs 2.6 0.9 - 3.2 [facility] x10(3)/[facility] LABORATORY Monocytes % 5.8 % [facility] Monocyte Abs 0.5 0.3 - 0.9 [facility] x10(3)/[facility] LABORATORY Eosinophils % 2.0 % [facility] Eosinophils Abs 0.2 0.0 - 0.4 [facility] x10(3)/[facility] LABORATORY Basophils % 0.5 % [facility] Basophils Abs 0.0 0.0 - 0.1 [facility] x10(3)/[facility] LABORATORY Immature Gran % 0.30 % [facility] Comment: Immature granulocytes(IG's)percentage an d absolute count will include metamyelocytes, myelocytes, and promyelo cytes. Blood smears from CBCs yielding IG's will be scanned manually for concor dance. If this scan disagrees with the automated IG or if promyelocytes are not ed, a manual differential will be performed. [place] Gran Abs 0.02 0.00 - 0.04 x10(3)/[facility] Specimen Anatomical Collection Method Collection Time Receive d Time (Source) Location / / Volume Laterality Blood specimen 01/08/2021 3:29 PM 021 3:37 (specimen) EDT PM EDT Resulting Agency Comment Spec In Lab Sanaz Rivas MD HEMATOLOGY ORDERABLES Performing Organization Address City/State/[place] [address] Hemogram (01/08/2021 3:29 PM EDT) P athologist Signature WBC 8.0 4.0 - 9.5 [facility] x10(3)/[facility] LABORATORY RBC 5.00 4.58 - [facility] 5.54 [facility] x10(6)/[facility] LABORATORY Hemoglobin 14.9 13.7 - [facility] 16.[facility] gm/dL [facility] Hematocrit 44.0 40.5 - [facility] 48.5 % [facility] MCV 88.0 82.9 - [facility] 93.1 [facility] LABORATORY MCH 29.8 27.5 - [facility] [place] 32.1 pg [facility] MCHC 33.9 32.0 - [facility] 35.7 gm/dL [facility] Platelets 230 145 - 357 [facility] x10(3)/[facility] LABORATORY RDWSD 39.5 36.0 - [facility] 45.0 [facility] RDWCV 12.2 11.4 - [facility] 13.8 % [facility] MPV 10.4 7.6 - 12.9 [facility] LABORATORY nRBC % Auto 0.0 % [facility] nRBC Abs Auto 0.000 0.000 - [facility] 0.000 [facility] x10(3)/[facility] LABORATORY Specimen Anatomical Collection Method Collection Time Receive d Time (Source) Location / / Volume Laterality Blood specimen 01/08/2021 3:29 PM 021 3:37 (specimen) EDT PM EDT Resulting Agency Comment Spec In Lab Sanaz Rivas MD HEMATOLOGY ORDERABLES Performing Organization Address City/State/[place] [address] (ABNORMAL) Comprehensive metabolic panel (non-fasting) (01/08/2021 3:29 PM EDT) athologist Signature Glucose Lvl 98 65 - 199 [facility] mg/dL [facility] Comment: Diabetes: >=200 mg/dL plus symp toms BUN 19 10 - 20 mg/dL [facility] Creatinine 0.85 0.80 - 1.50 mg/dL [facility] Sodium 144 135 - 145 mmol/L [facility] Potassium 4.2 3.5 - 5.0 mmol/L [facility] Comment: Please note: ??Patients with WBC >100,00 0 may have falsely elevated Potassium levels. ??For accurate Potassium quantif ication in these patients send serum separator tube (gold top) for subsequent determinations. ??Contact the Clinical Chemistry Laboratory if there are any qu estions. Chloride 106 98 - 107 mmol/L [facility] CO2 25 22 - 31 mmol/L [facility] Anion Gap 13 5 - 15 mmol/L [facility] Calcium 9.4 8.5 - 10.5 mg/dL [facility] Total Protein 7.2 6.1 - 8.0 gm/dL [facility] Albumin 4.8 3.2 - 5.2 gm/dL [facility] AST 36 0 - 39 unit/L [facility] ALT 46 0 - 55 unit/L [facility] Alk Phos 75 40 - 130 unit/L [facility] Total Bilirubin <0.2 (L) 0.2 - 1.3 mg/dL [facility] Estimated GFR 110 >=60 mL/min/1.73 m?? [facility] Comment: This patient? s estimated glomerular filtration rate (eGFR) is between 110 mL/min/1.73 m2 (patients with less muscl e mass per kg body weight) and 127 mL/min/1.73 m2 (patients with more muscl e mass per kg body weight) as determined by the CKD-EPI equation. Asse ssment of eGFR is not appropriate when creatinine concentrations are rapidly ch anging. For clinical decisions where creatinine clearance will affect therapy , a 24-hour urine creatinine clearance may be advised. Assignment of CKD stage 1 - 5 for patien ts with an eGFR near the transition point between stages may be based on cli nical assessment of muscle mass and symptoms in addition to eGFR. Specimen Anatomical Collection Method Collection Time Receive d Time (Source) Location / / Volume Laterality Blood specimen 01/08/2021 3:29 PM 021 3:37 (specimen) EDT PM EDT Resulting Agency Comment Spec In Lab Sanaz Rivas MD CHEMISTRY ORDERABLES Performing Organization Address City/State/ZIP Code Phon e Number [address] Vitamin D, 25-Hydroxy (01/08/2021 3:29 PM EDT) Patholo gist Method Time Signature 25-OH Vit D 31 21 - 100 [facility] Total ng/mL [facility] 25-OH Vit D Sufficient [facility] LABORATORY Specimen Anatomical Collection Method Collection Time Receive d Time (Source) Location / / Volume Laterality Blood specimen 01/08/2021 3:29 PM 021 3:37 (specimen) EDT PM EDT Resulting Agency Comment Spec In Lab Sanaz Rivas MD CHEMISTRY ORDERABLES Performing Organization Address City/State/ZIP Code Phon e Number [address] Vitamin B12 (01/08/2021 3:29 PM EDT) P athologist Signature Vitamin B-12 914 232 - 1245 [place] pg/mL [facility] Specimen Anatomical Collection Method Collection Time Receive d Time (Source) Location / / Volume Laterality Blood specimen 01/08/2021 3:29 PM 021 3:37 (specimen) EDT PM EDT Resulting Agency Comment Spec In Lab Sanaz Rivas MD CHEMISTRY ORDERABLES Performing Organization Address City/[facility]/ZIP Code Phon e Number [place] [id number] [facility] Drive Methylmalonic acid, serum (01/08/2021 3:29 PM EDT) Patholo gist Method Time Signature Methylmalonic Acid 0.14 <=0.40 [facility] nmol/mL [facility] Comment: ADDITIONAL INFORMATIO N This test was developed and its performa nce characteristics determined by [facility] in a manner co nsistent with CLIA requirements. This test has not been maria a ared or approved by the U.S. Food and Drug Administration. Test Performed by: [facility] [place] [address] Territory Service Representative: Bryant Verde M.D. Ph. D.; CLIA# [id number] Specimen Anatomical Collection Method Collection Time Receive d Time (Source) Location / / Volume Laterality Blood specimen 01/08/2021 3:29 PM 021 9:26 (specimen) EDT AM EDT Resulting Agency Comment Spec In Lab Sanaz Rivas MD CHEMISTRY ORDERABLES Performing Organization Address City/[facility]/[place] [address] [facility] [address] Sedimentation rate (01/08/2021 3:29 PM EDT) P athologist Signature Sed Rate 4 2 - 28 [facility] [place] mm/hr [facility] Comment: Effective August 23, 2019 new capillar y photometric technology has resulted in a change in reference ranges. It is r ecommended that each ESR result be reviewed with its own age appropriate re ference range. Specimen Anatomical Collection Method Collection Time Receive d Time (Source) Location / / Volume Laterality Blood specimen 01/08/2021 3:29 PM 021 3:37 (specimen) EDT PM EDT Resulting Agency Comment Spec In Lab Sanaz Rivas MD HEMATOLOGY ORDERABLES Performing Organization Address City/[facility]/ZIP Code Phon e Number [address] TSH (01/08/2021 3:29 PM EDT) athologist Signature TSH 1.68 0.27 - 4.20 [place] mcIU/mL [facility] Specimen Anatomical Collection Method Collection Time Receive d Time (Source) Location / / Volume Laterality Blood specimen 01/08/2021 3:29 PM 021 3:37 (specimen) EDT PM EDT Resulting Agency Comment Spec In Lab Sanaz Rivas MD CHEMISTRY ORDERABLES Performing Organization Address City/[facility] [place] [address] Ferritin (01/08/2021 3:29 PM EDT) athologist [facility] Ferritin 108 30 - 400 [place] ng/mL [facility] Comment: Pediatric reference ranges not verified at [facility], interpret with caution. Reference ranges for females greater alton n 50 years of age approach values for men, i.e., 30-400 ng/mL. Specimen Anatomical Collection Method Collection Time Receive d Time (Source) Location / / Volume Laterality Blood specimen 01/08/2021 3:29 PM 021 3:37 (specimen) EDT PM EDT Resulting Agency Comment Spec In Lab Sanaz Rivas MD CHEMISTRY ORDERABLES Performing Organization Address City/[facility]/ZIP [facility] Phon e Number [address] Testosterone, total and free (01/08/2021 3:29 PM EDT) athologist Signature Testo Total 258 250 - 1100 [place] ng/dL [facility] Comment: For additional information, please refer to http://education.[employer].Assembly/fa q/ [email or web address] (This link is being provided for informa tional/ educational purposes only.) This test was developed and its analytic al performance characteristics have been determined by [employer] [place], [place]. It has not been cleared or approved by the U.S. Food and Drug Administration. This assay has been sherley dated pursuant to the CLIA regulations and is used for clinical purposes. Testo Free 37.7 35.0 - 155.0 pg/mL [facility] Comment: This test was developed and its analytic al performance characteristics have been determined by [employer] [place], [place]. It has not been cleared or approved by the U.S. Food and Drug Administration. This assay has been sherley dated pursuant to the CLIA regulations and is used for clinical purposes. Test Performed by [facility], [employer] [facility], [address] [place] [address] 2014 09 Bruno Shoemaker M.D., Ph.D., Director [facility] [employer] , CLIA [id number] Specimen Anatomical Collection Method Collection Time Receive d Time (Source) Location / / Volume Laterality Blood specimen 01/08/2021 3:29 PM 021 4:27 (specimen) EDT PM EDT Resulting Agency Comment Spec In Lab Sanaz Rivas MD CHEMISTRY ORDERABLES Performing Organization Address City/State/Z[place] [address] documented in this encounter Visit Diagnoses Diagnosis Chronic fatigue Other malaise and fatigue Chronic daily headache Headache Sleep disturbance Sleep disturbance, unspecified documented in this encounter Care Teams Lobster Fisherman Relationship Specialty Start Date End Date Kobe Richardosn MD PCP - General Family Medicine 08/05/20 [address] [place] [phone] documented as of this encounter
--- OUTSIDE RECORDS SUMMARY | 2022-05-22 15:16 | XMS_ITS | Encounter Summary ---
:1980 Author Organization [facility] Address [facility] [place] [address] Care Team Providers Name Role Phone Kobe Richardson MD Primary Care Provider Encounter Details Date Type Department Care Team Description 02/18/2021 TH Visit Neurology at [facility] Sanaz Rivas, Scalp pain; (TeleHealth) [facility] Exhaustion; Drive [facility] (shortness of breath) [facility] [id number] [place] [address] [phone] Social History Tobacco Use Types Packs/Day Years Used Date Former Smoker Smokeless Tobacco: Never Used Comments: quit a few years ago Alcohol Use Standard Drinks/Week Comments Not Currently 0 (1 standard drink = 0.6 oz pure alcoho l) Sex Assigned at Date Recorded Not on file documented as of this encounter Progress Notes Sanaz Rivas MD - 02/18/2021 11:00 AM EDT Neurology Clinic - Telehealth visit Patient name: Flavio Hamm Date of : 1980 PCP: Kobe Richardson MD CC: neck pain, fatigue HPI: To briefly summarize, Flavio Hamm is a 40 y.o. man with left acoustic neuroma and left central serous retinopathy (SHELLFISH GROWER) with recurrent episodes involving neck pain, dizziness, arm paresthesias/numbness, left eye pain, headaches and exhaustion. Though his acoustic neuroma and SHELLFISH GROWER may account for some of his symptoms, he also has many migrainous features. Prior history of neck trauma may also account for some of the symptoms he is experiencing though MRI cervical spine notable for only mild degenerative changes. Many of symptoms did coincide with changing diet and in addition he drinks significant quantities of caffeine for which he has tried adjusting his diet but unfortunately this did not help. 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 Afterwards, unfortunately still having SINCLAIR-every day - pounding, exhausted, cant do much. Has tried Elavil in topiramate and was doing well/better at his last visit and was approaching his busy season. Previously: Came off all medication Elavil and TPM- worried that personality was changing too much- angry frustrated and paranoid SINCLAIR still bothering him so figured might as well get rid of meds Scar is swollen- lots of physical labor Started taking 10mg of prednisone left over- helped tremendously Effects of medicines vs migraines Last week hasnt been on anything- not too bad Few naps here and there Now SINCLAIR always on left where scar is Interval history: Trying to trim/weedwack- suddenly became very tired, couldn't see or walk straight, tingling in hands, incredible SINCLAIR involving neck too Went to ED ([facility]- reviewed ED report) - could hardly carry on a conversation, lost train of thought - struggling- very strange Ever since, just no energy- exhausted and dizzy very easily, lightheaded easy Skipping stones at gray and tried to walk back but couldn't catch breath Saw PCP yesterday and requested stress test, also checked Lyme Previously reviewed: Past Medical & Surgical History: Hernia surgery middle fossa resection of intracanalicular vestibular schwannoma Allergy: Allergies Allergen Reactions ??? Amoxicillin-Pot Clavulanate Angioedema ??? Bupropion ??? Naproxen Other (See Comments) Throat swelled 08/18 ??? Sulfa (Sulfonamide Antibiotics) Family History: No family history of neurological conditions, father had prostate CA and at age 30 Social History: Smoking: no- quit 2-3 yrs ago EtOH: no- quit 2-3 yrs ago IVDA: no Living Situation: lives with and kids Occupation: [employer] Review of systems: [x] All other systems otherwise negative Physical Exam: No physical exam was performed during this tele health visit. Patient was noted to be alert. His language was fluent and conversational without dysarthria or aphasia. Mood and affect were pleasant and congruent. Decreased left nasolabial fold. Diagnostic Tests and Imaging: MRI brain 02/05/2021: personally reviewed and appears stable MRI brain 08/02/2020: IMPRESSION 1. Linear enhancement along the posterior aspect of the left internal auditory canal favored to represent either postoperative change or prominent vascular enhancement and not residual tumor. 2. 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 MRI brain from 11/12/2019 notable for left acoustic neuroma, otherwise normal. MRI cervical spine 01/19/2020 radiology IMPRESSION: 1. Mild degenerative changes with no significant spinal canal stenosis. 2. Mild foraminal stenosis bilaterally at C3-4 and on the left at C4-5. Assessment / Plan: Flavio Hamm is a pleasant 40 y.o. man s/p left middle fossa resection of an intracanalicular vestibular schwannoma and left central serous retinopathy (SHELLFISH GROWER), previously with recurrent episodes involving neck pain, dizziness, arm paresthesias/numbness, left eye pain, headaches and exhaustion and more recently with severe exhaustion and shortness of breath for which he has gone to ED. At this time,his symptoms are likely more than a primary neurological condition. Repeat MRI which he had at [facility] appears stable on my review but will request formal radiology read.Have made referral for sleep study which is pending. Extensive blood work so far reassuring but PCP e xpanding this to include Lyme ab testing. Could also consider PFTs, TTE and/or stress test but will respectfully defer to PCP on this. At this time, SINCLAIR do not appear to be his main concern. Rx for these have resulted in intolerable side effects. Should intolerable SINCLAIR persist/recur will consider LP to measure OP and CSF analysis and/orreferral to SINCLAIR clinic for consideration of alternative therapies. RTC in ~1 month or sooner as needed Sanaz Rivas MD [facility] Neurology Total time associated with this visit was 30 minutes which was spent reviewing studies, obtaining history, counseling, coordination of care and documentation as described above. documented in this encounter Plan of Treatment Not on filedocumented as of this encounter Visit Diagnoses Diagnosis Scalp pain Headache Exhaustion Other malaise and fatigue SOB (shortness of breath) Shortness of breath documented in this encounter Care Teams Polysomnography Tech Relationship Specialty Start Date End Date Kobe Richardson MD PCP - General Family Medicine 08/05/20 [address] [place] [place] [address] documented as of this encounter
--- OUTSIDE RECORDS SUMMARY | 2022-05-22 15:16 | XMS_ITS | Encounter Summary ---
:1980 [place] [address] Care Team Providers Name Role Phone Kobe Richardson MD Primary Care Provider Encounter Details Date Type Department Care Team Description 03/19/2021 Ancillary Procedure [facility] Wilbur Zuleta MD headache syndrome [facility] [address] [place] [id number] DISEASE [phone] [place] [address] Social History Tobacco Use Types Packs/Day Years [...] Name Priority Date/Time Associated Diagnosis Comme nts REQUEST FOR 2ND Routine 03/19/2021 6:11 PM Other complicated R esults for this READ MR HEAD EDT headache syndrome procedure are in the results section. documented in this encounter Results Request for 2nd read MR Head (03/19/2021 6:11 PM EDT) Anatomical Region Laterality Modality SO Specimen (Source) Anatomical Location Collection Method / Collectio n Time Received Time / Laterality Volume Impressions 03/20/2021 12:04 PM EDT Persistent linear enhancement in the left internal auditory canal and ill-defined enhancement of the adjacent petrous fat graft, stable dating back to initial post-surgical MR head 08/02/2020 and favored to represent postoperative change versus prominent vasculature over residual tumor. Stable findings of labyrinthitis ossific ans, superior semicircular canal, left. Likely postsurgical. I have personally reviewed the image(s) and the resident's interpretation and agree with the findings, Flavio loja MD at 03/20/2021 12:04 PM Thank you for letting us participate in the care of this patient. ??If you are a health care provider and have any questi ons regarding this report, please contact the number below. ??For patients who have questions please contact the health date night caregiver that requested your imaging first. ? Narrative 03/20/2021 12:04 PM EDT EXAMINATION: REQUEST FOR 2ND READ MR HEAD CLINICAL HISTORY: S/P resection of Schwa nnoma. ??repeat imaging done for H/A and fatigue.; Sending Institution [facility] - MRI is in the system; Date of exam [id number]; I believe a reinterpretation o f this exam may alter care of Patient. Yes; S/P resection of Schwannoma. ??repe at imaging done for H/A and fatigue. TECHNIQUE: MR images of the brain acquired before a nd after the administration of intravenous Dotarem acquired on an [facility]. IAC protocol. COMPARISON: Multiple MR brain dating back to 11/02/19, CT head 02/05/2021 FINDINGS: Redemonstrated postsurgical change invol ving the left squamous and petrous temporal bone. Persistent linear enhancement in the lef t IAC and ill-defined enhancement of the adjacent fat graft, not significantly ch anged from MR brain exams on 02/05/2021 and 08/02/2020. No new mass or abnormal enhancement iden tified. No extra-axial collection. No abnormal restricted diffusion. Ventricles are normal. Major proximal intracranial vasculature is grossly patent. Dependent nonenhancing T2 hyperintense f luid within the left maxillary sinus. 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 Procedure Note Flavio Salazar MD - 03/20/2021Forma tting of this note might be different from the original. EXAMINATION: REQUEST FOR 2ND READ MR KARI Hassan CLINICAL HISTORY: S/P resection of Schwa nnoma. repeat imaging done for H/A and fatigue.; Sending Institution [facility] - MRI is in the system; Date of exam [id number]; I believe a reinterpretation o f this exam may alter care of Patient. Yes; S/P resection of Schwannoma. repeat imaging done for H/A and fatigue. TECHNIQUE: MR images of the brain acquired before a nd after the administration of intravenous Dotarem acquired on an [facility]. IAC protocol. COMPARISON: Multiple MR brain dating back to 11/02/19, CT head 02/05/2021 FINDINGS: Redemonstrated postsurgical change invol ving the left squamous and petrous temporal bone. Persistent linear enhancement in the lef t IAC and ill-defined enhancement of the adjacent fat graft, not significantly ch anged from MR brain exams on 02/05/2021 and 08/02/2020. No new mass or abnormal enhancement iden tified. No extra-axial collection. No abnormal restricted diffusion. Ventricles are normal. Major proximal intracranial vasculature is grossly patent. Dependent nonenhancing T2 hyperintense f luid within the left maxillary sinus. 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 IMPRESSION Persistent linear enhancement in the lef t internal auditory canal and ill-defined enhancement of the adjacent petrous fat graft, stable dating back to initial post-surgical MR head 08/02/2020 and favored to represent postoperative change versus prominent vasculature over residual tumor. Stable findings of labyrinthitis ossific ans, superior semicircular canal, left. Likely postsurgical. I have personally reviewed the image(s) and the resident's interpretation and agree with the findings, Flavio loja MD at 03/20/2021 12:04 PM Thank you for letting us participate in the care of this patient. If you are a health care provider and have any questi ons regarding this report, please contact the number below. For patients w ho have questions please contact the health date night caregiver that requested your imaging first. Wilbur Looney MD IMG OUTSIDE INTERPRETATION O RDERABLES documented in this encounter Visit Diagnoses Diagnosis Other complicated headache syndrome documented in this encounter Care Teams Foam Rubber Molder Relationship Specialty Start Date End Date Kobe Richardson MD PCP - General Family Medicine 08/05/20 [place] [address] documented as of this encounter
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
--- OUTSIDE RECORDS SUMMARY | 2022-05-22 15:16 | XMS_ITS | Encounter Summary ---
:1980 Author Organization [facility] [place] [address] Care Team Providers Name Role Phone Kobe Richardson MD Primary Care Provider Reason for Visit Diagnostic Test (Routine) - Closed Specialty Diagnoses / Procedures Referred By Contact Refer red To Contact Sleep Center Diagnoses Vestibular schwannoma Excessive daytime sleepiness Frequent nocturnal awakening Trinity Fam DO [facility] Sleep Medicine Procedures Sleep Study Diagnostic PSG / Split Night PSG [facility] [address] [place] [address] [place] [address] Referral ID Status Reason Start Date Expiration Date Visits V isits Requested Authorized [id number] Closed Specialty 05/12/2021 05/12/2022 1 1 Service Requested Encounter Details Date Type Department Care Team Description 07/11/2021 Procedure visit [facility] SHILPI (obstructive sleep apnea) (Primary Dx); [facility] Vestibular schwannoma; [address] [facility] [place] [address] SLEEP DISORDERS [phone] [place], [place] [address] Social History Tobacco Use Types Packs/Day Years Used Date Former Smoker Smokeless Tobacco: Never Used Comments: quit a few years ago Alcohol Use Standard Drinks/Week Comments Not Currently 0 (1 standard drink = 0.6 oz pure alcoho l) Sex Assigned at Date Recorded Not on file documented as of this encounter Last Filed Vital Signs Vital Sign Reading Time Taken Comments Blood Pressure 136/97 07/11/2021 7:45 PM EDT Pulse 84 07/11/2021 7:45 PM EDT Temperature - - Respiratory Rate 16 07/11/2021 7:45 PM EDT Oxygen Saturation 100% 07/11/2021 7:45 PM EDT Inhaled Oxygen Concentration - - Weight 81.6 kg (180 lb) 07/11/2021 7:45 PM EDT Height 172.7 cm (5' 8) 07/11/2021 7:45 PM EDT Body Mass Index 27.37 07/11/2021 7:45 PM EDT documented in this encounter Progress Notes Trinity Fam, DO - 07/11/2021 8:00 PM EDT Images from the original note were not included. REPORT OF DIAGNOSTIC POLYSOMNOGRAM IDENTIFYING INFORMATION Flavio Hamm : 1980 PRIMARY CARE PHYSICIAN: Kobe Richardson MD History Of Present Illness: Flavio Hamm is a 40 y.o. male with history of left middle fossa resection for vestibular schwannoma who presents for a polysomnogram for suspected sleep apnea. Polysomnography: The patient's sleep was evaluated for one night at [facility]. Sleep was monitored in accordance with recommended AASM guidelines. The recording also included oral/nasal airflow, chest and abdominal respiratory effort, nasal pressure, single channel EKG, intercostal EMG, bilateral tibialis EMG, and oxygen saturation (by pulse oximeter). Comment: - Sleep/EEG: The patient had a 11 Hz posterior dominant rhythm when awake with eyes closed. Sleep efficiency was 80% which is slightly reduced and mostly as a result of WASO. NREM and REM sleep were noted. REM percentage was slightly elevated at 31%. He spent 57% of TST in supine position. - Respiratory: Obstructive sleep apnea of a moderate degree (AHI of 15) noted. CMS AHI of 3.4 which includes only apneas and hypopneas with 4% desaturations noted. Minimum saturation asleep of 92%. Mean saturation asleep was 97%. Events were mostly arousal based hypopneas (some were associated with mild cyclical oxyhemoglobin desaturations), but some (5) obstructive apneas were seen. Obstructive events were more frequent while in the supine position. Central apnea burden was low with a JEAN of 0.4. There was no hypoxemia seen on this study. - EKG: Normal sinus rhythm with no significant ectopy. Heart rate ranged from 57-103 with a mean of 76 bpm. - EMG: PLM index of 0. - Study Conditions: Head of the bed: 0 degree elevation with 2 pillows. Supplemental oxygen: none - Subjective: The post sleep study questionnaire indicated the following: ...how did you sleep last night: slightly worse ..how well rested and alert do you feel right now: slightly worse Mask Demonstration: Patient expressed a preference for Airfit N20, size large Assessment: Mr. Flavio Hamm is a 40 y.o. male whose polysomnogram reveals moderate obstructive sleep apnea with an AHI of 15. Events were mostly arousal based hypopneas although a few nini obstructive apneas were observed. There was no hypoxemia seen on this study. Sleep architecture was notable for a reduced sleep efficiency (80%) mostly as a result of WASO. EKG revealed a normal sinus rhythm with no significant ectopy. No motor disorders were identified. Recommendations: Given the evidence of moderate SHILPI on this study, treatment is recommended. CPAP isthe recommended primary modality of treatment. Alternative options are less favored and include an oral appliance or potentially surgery. Conservative strategies may be of additional benefit and include weight loss, avoiding the supine position, and treatment of nasal congestion if present. There are no apparent contraindications to AUTOPAP. 1. AUTOPAP 5 - 15 cm. 2. Follow up with [facility] or Trinity Fam DO about 6 weeks after starting AUTOPAP. 3. Results were communicated with patient via [facility]. Trinity Fam DO [facility] REPORT of Diagnostic Polysomnography Patient Name: Flavio Hamm Study Date: 07/11/2021 Age & Sex: 40 y.o. Male Height: 5'8 Date of : 1980 Weight: 180 lbs BMI: 27.4 Referring Provider: Recording Technologist: JAIME HUGO Scoring Technologist: NADJA VEGA Sleep Fellow: Sleep Specialist: TRINITY COLVERT ,DO Scoring Technologist Comments: ECG: Sinus Ectopy: Description of Study: Diagnostic polysomnography was performed utilizing frontal, central & occipital EEG, EOG, submentalis EMG, oronasal thermocouple, nasal pressure, ECG, thoracic and abdominal inductance plethysmography, right and left anterior tibialis EMG, snore sensor, and pulse oximetry according to AASM established guidelines. Study Details & Sleep Architecture Diagnostic Start Time (Lights Off): 21:14:11 Total Recording Time: 374.0 min Diagnostic End Time (Lights On): 03:28:11 Total Sleep Time (minutes): 300.5 Total Num. of Stage Shifts: 106 Total Sleep Time (hrs:min): 5:0.5 Total Num. of Awakenings: 16 Sleep Onset Latency: 10.5 min Total Num. of Trans. to N1: 36 Sleep Efficiency: 80.3% Total Num. of REM Periods: 7 Stage Results: Time (minutes) %TST Latency (minutes) WASO: 63.0 - - N1: 39.5 13.1 0.0 N2: 126.5 42.1 3.5 N3: 39.5 13.1 20.0 REM: 95.0 31.6 45.0 44.0 (minus wake) Arousal Counts: NREM REM Total Spontaneous: 29 (8.5/hr) 14 (8.8/hr) 43 (8.6/hr) Sum of All Arousals: 68 (19.9/hr) 35 (22.1/hr) 103 (20.6/hr) Spontaneous arousals include only EEG arousals not associated with a respiratory event or PLM. Body Position: Supine Non-Supine Non-REM: 113.0 min 92.5 min REM: 58.5 min 36.5 min Total Sleep: 171.5 min (57.1%) 129.0 min (42.9%) Respiratory Events Apneas Obstructive Mixed Central Total Apneas Total Count: 5 2 2 9 Mean Duration (sec): 17 20 15 17 Longest Duration (sec): 21.4 20.6 15.2 21 Index (REM/NREM): 0.0 / 1.5 0.0 / 0.6 0.0 / 0.6 0.0/ 2.6 Index (Sup./Non-Sup.): 1.7 / 0.0 0.7 / 0.0 0.7 / 0.0 3.1/ 0.0 Index (Total): 1.0 0.4 0.4 1.8 Hypopneas & RERAs Hypopnea Definitions: Hypopnea* [facility] Hypopnea AAS Central Hypopneas Hypopneas All RERA Total Count: 8 66 0 66 0 Mean Duration (sec): 19.6 19.5 0.0 19 0 Longest Duration (sec): 22.0 27.8 0.0 28 0 Index (REM/NREM): 1.3/1.8 17.7/10.8 0.0 / 0.0 17.7/ 11.1 0.0 0.0 Index (Sup./Non-Sup.): 2.1 / 0.9 15.0/ 10.2 0.0 / 0.0 15.0/ 10.7 0.0 / 0.0 Index (Total): 1.6 13.0 0.0 13.2 0.0 *CMS-defined hypopneas include only hypopneas with a >=4% oxygen desaturation. Includes hypopneas with an arousal or with a 3%-4% desaturation. Periodic Breathing Total Sleep Time Time (minutes) 0.0 Time (%Sleep Time) 0.0 AHI: Includes all apneas & all hypopneas associated with an arousal or a ? 3% desaturation. Supine Non-Sup. REM NREM Total Count: 52 23 28 47 75 Index (events/hr): 18.2 10.7 17.7 13.7 AHI = 15.0 CMS AHI: Includes all apneas & only hypopneas associated with a ? 4% desaturation. Supine Non-Sup. REM NREM Total Count: 15 2 2 15 17 Index (events/hr): 5.2 0.9 1.3 4.4 CMS = 3.4 Obstructive AHI: Includes obstructive & mixed apneas as well as all hypopneas. Excludes central apneas and RERAs. Supine Non-Sup. REM NREM Total Count: 50 23 28 45 73 Index (events/hr): 17.5 10.7 17.7 13.1 OAHI = 14.6 RDI: Includes all apneas, all hypopneas, all RERAs, and all ???Unsure??? events. Supine Non-Sup. REM NREM Total Count: 52 23 28.0 46.9 75 Index (events/hr): 18.2 10.7 17.7 13.7 RDI = 15.0 Oxygen Saturation Details SpO2 Awake NREM REM All Sleep ELE Report Sleep Mean: 97% 97% 97% 97% 3% ELE 5.4 6.8 Minimum: - 92% 92% 92% 4% ELE 2.5 3.2 SpO2 Awake (minutes) NREM (minutes) REM (minutes) All Sleep (minutes) ?90% 0.0 0.0 0.0 0.0 ?89% 0.0 0.0 0.0 0.0 ?88% 0.0 0.0 0.0 0.0 90-99% 55.5 188.3 88.0 276.3 80-89.9% 0.0 0.0 0.0 0.0 79-79.9% 0.0 0.0 0.0 0.0 60-69.9% 0.0 0.0 0.0 0.0 50-59.9% 0.0 0.0 0.0 0.0 ?50% 0.0 0.0 0.0 0.0 Cardiac Details Heart Rate (bpm) Total Study NREM REM All Sleep Minimum - 57 62 57 Maximum 108 103 101 103 Mean - 74 80 76 Limb Movement Details Periodic Limb Movements Total PLMs (and Index) PLMs w/ Arousals (and Index) Wake (after ???Lights Off???): 0 (0.0/hr) 0 (0.0/hr) NREM: 0 (0.0/hr) 0 (0.0/hr) REM: 0 (0.0/hr) 0 (0.0/hr) Total Sleep: 0 (0.0/hr) 0 (0.0/hr) Graphs PLMs Body Position Supplemental Oxygen documented in this encounter Plan of Treatment Not on filedocumented as of this encounter Visit Diagnoses Diagnosis SHILPI (obstructive sleep apnea) - Primary Obstructive sleep apnea (adult) (pediatr ic) 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
--- OUTSIDE RECORDS SUMMARY | 2022-05-22 15:16 | XMS_ITS | Encounter Summary ---
:1980 Author Organization [place] [address] Care Team Providers Name Role Phone Kobe Richardson MD Primary Care Provider Reason for Referral Surgical (Routine) - New Request Specialty Diagnoses / Procedures Referred By Contact Refer red To Contact Diagnoses Chronic fatigue Chronic daily headache Acoustic neuroma Na Puentes MD Procedures Lumbar Puncture [facility] [place] [address] Referral ID Status Reason Start Expiration Visits Visits Date Date Requested Authorized [id number] New Request Consult, 07/09/2022 1 1 Test & 1 Treat Encounter Details Date Type Department Care Team Description 07/09/2021 Procedure visit [place]rology at [facility] [place] Puentes Chronic fatigue; [facility] Chronic daily headache; [facility] Acoustic neuroma [place] [address] NEUROLOGY DEPT [phone] [place], [place] [address] Social History Tobacco Use Types Packs/Day Years Used Date Former Smoker Smokeless Tobacco: Never Used Comments: quit a few years ago Alcohol Use Standard Drinks/Week Comments Not Currently 0 (1 standard drink = 0.6 oz pure alcoho l) Sex Assigned at Date Recorded Not on file documented as of this encounter Last Filed Vital Signs Vital Sign Reading Time Taken Comments Blood Pressure 128/83 07/09/2021 7:46 AM EDT Pulse 84 07/09/2021 7:46 AM EDT Temperature - - Respiratory Rate - - Oxygen Saturation - - Inhaled Oxygen Concentration - - Weight 81.6 kg (180 lb) 07/09/2021 7:46 AM EDT Height 172.7 cm (5' 8) 07/09/2021 7:46 AM EDT Body Mass Index 27.37 07/09/2021 7:46 AM EDT documented in this encounter Progress Notes Na Puentes MD - 07/09/2021 8:00 AM EDT Neurology Attending Note Na Puentes MD (Pg [id number]) I certify that I was present and supervised this Lumbar puncture on Flavio Hamm on 07/09/[address] Rosas Hurley. Flavio Hamm was approached about participation in the Cerebral Spinal Fluid [facility] [place] at [facility] with Drs. Marcel Patel and Abraham Deleon as lead investigators. Flavio Hamm met all study inclusion and exclusion criteria, and all questions from Flavio Molina Hansel regarding this study were answered. Flavio Hamm signed the IRB approved consent form and was provided with a copy. After the consent form was signed, the CSF sample, if collected, was sent to the CSF biospecimen bank. documented in this encounter Procedure Notes Diana Rapp MD - 07/09/2021 8:00 AM EDTAssociated Order(s): Lumbar Puncture Lumbar Puncture Date/Time: 07/09/2021 8:43 AM Performed by: Diana Rapp MD Authorized by: Na Puentes MD [place] Protocol: Written consent obtained?: Yes Risks and benefits: Risks, benefits and alternatives were discussed Consent given by: Patient Patient states understanding of procedure being performed: Yes Patient's understanding of procedure matches consent: Yes Procedure consent matches procedure scheduled: Yes Relevant documents present and verified: Yes Test results available and properly labeled: Yes Site marked: Yes Imaging studies available: Yes Patient identity confirmed: Verbally with patient Time out: Immediately prior to the procedure a time out was called A time out verifies correct patient, procedure, equipment, pharmacy retail support specialist and site/side marked as required: Indications: LP Indications: Headache Anesthesia: Anesthesia: Local infiltration Local anesthetic: Lidocaine 1% without epinephrine Anesthetic total (ml): 8 Procedure Details: Preparation: Patient was prepped and draped in usual sterile fashion Lumbar space: L4-L5 interspace Patient's position: Left lateral decubitus Needle gauge: 22 Needle type: Sprotte tip Needle length (in): 3.5 Number of attempts: 1 Opening pressure (cm H2O): 16.4 Fluid appearance: Clear Tubes of fluid: 4 Total volume (ml): 17 CSF Labs obtained: Cell Count-CSF, Glucose-CSF, Protein-CSF and Culture-CSF Post LP Procedure: Site cleaned, Rolled gauze and adhesive bandage applied, Verbal instructions given to patient, Written and verbal instructions given to patient, Stylet repaced and needle withdrawn and Pressure dressing Performed by: Resident documented in this encounter Plan of Treatment Not on filedocumented as of this encounter Procedures Procedure Name Priority Date/Time Associated Diagnosis Comme nts LUMBAR PUNCTURE Routine 07/09/2021 8:43 AM Chronic fatig ue Results for this EDT Chronic daily procedure are in headache the results Acoustic neuroma section. HC [facility] LYME CSF IGG Routine 07/09/2021 8:37 AM Chronic f atigue Results for this WITH REFLEX EDT Chronic daily procedure are in headache the results Acoustic neuroma section. HC CSF CELL COUNT Routine 07/09/2021 8:37 AM Chronic fat igue EDT Chronic daily headache Acoustic neuroma CSF CELL COUNT Routine 07/09/2021 8:37 AM Chronic fatig ue Results for this EDT Chronic daily procedure are in headache the results Acoustic neuroma section. CSF DESC 4 Routine 07/09/2021 8:37 AM Chronic fatig ue Results for this EDT Chronic daily procedure are in headache the results Acoustic neuroma section. CSF DESC 3 Routine 07/09/2021 8:37 AM Chronic fatig ue Results for this EDT Chronic daily procedure are in headache the results Acoustic neuroma section. CSF DESC 2 Routine 07/09/2021 8:37 AM Chronic fatig ue Results for this EDT Chronic daily procedure are in headache the results Acoustic neuroma section. CSF DESC 1 Routine 07/09/2021 8:37 AM Chronic fatig ue Results for this EDT Chronic daily procedure are in headache the results Acoustic neuroma section. [facility] CSF OLIG Routine 07/09/2021 8:37 AM Chronic fatig ue Results for this EDT Chronic daily procedure are in headache the results Acoustic neuroma section. HC [facility] CSF INDEX Routine 07/09/2021 8:37 AM Chronic fati stephen Results for this IGG EDT Chronic daily procedure are in headache the results Acoustic neuroma section. HC PHARMACIST ASSISTANT CULTURE Routine 07/09/2021 8:37 AM Chronic fatig ue Results for this EDT Chronic daily procedure are in headache the results Acoustic neuroma section. HC PROTEIN, CSF Routine 07/09/2021 8:37 AM Chronic fatig ue Results for this EDT Chronic daily procedure are in headache the results Acoustic neuroma section. HC GLUCOSE, CSF Routine 07/09/2021 8:37 AM Chronic fatig ue Results for this EDT Chronic daily procedure are in headache the results Acoustic neuroma section. documented in this encounter Results LUMBAR PUNCTURE (07/09/2021 8:43 AM EDT) Narrative Diana Rapp MD - 07/09/20 8:43 AM EDT Diana Rapp MD ? 07/09/2021 ??8:51 AM Lumbar Puncture Date/Time: 07/09/2021 8:43 AM Performed by: Diana Rapp MD Authorized by: Na Puentes MD [place] Protocol: ??Written consent obtained?: Yes ?Risks and benefits: Risks, benefits a nd alternatives were discussed ?Consent given by: ??Patient ??Patient states understanding of proce dure being performed: Yes ?Patient's understanding of procedure matches consent: Yes ?Procedure consent matches procedure s cheduled: Yes ?Relevant documents present and verifi ed: Yes ?Test results available and properly l abeled: Yes ?Site marked: Yes ?Imaging studies available: Yes ?Patient identity confirmed: ??Verball y with patient ??Time out: Immediately prior to the pr ocedure a time out was called ?? A time out verifies correct patient, pro cedure, equipment, pharmacy retail support specialist and site/side marked as required: Indications: ??LP Indications: ??Headache Anesthesia: ??Anesthesia: ??Local infiltration ??Local anesthetic: ??Lidocaine 1% with out epinephrine ??Anesthetic total (ml): ??8 Procedure Details: ??Preparation: Patient was prepped and draped in usual sterile fashion ?Lumbar space: ??L4-L5 interspace ??Patient's position: ??Left lateral de cubitus ??Needle gauge: ??22 ??Needle type: ??Sprotte tip ??Needle length (in): ??3.5 ??Number of attempts: ??1 ??Opening pressure (cm H2O): ??16.4 ??Fluid appearance: ??Clear ??Tubes of fluid: ??4 ??Total volume (ml): ??17 ??CSF Labs obtained: ??Cell Count-CSF, Glucose-CSF, Protein-CSF and Culture-CSF ??Post LP Procedure: ??Site cleaned, Ro lled gauze and adhesive bandage applied, Verbal instructions given to chari resendiz, Written and verbal instructions given to patient, Stylet re paced and needle withdrawn and Pressure dressing ??Performed by: ??Resident Na Puentes MD PROCEDURE/MINOR SURGICAL ORD ERABLES CSF Cell Count (07/09/2021 8:37 AM EDT) P athologist Signature Tube # Ct CSF [address] [facility] Nucleated CSF 2 0 - 5 /mcl [facility] Comment: If Nucleated CSF CT result equals Zero, no smear is made and no Differential is performed. If Nucleated CSF CT result is 1-5 / mcL, a smear is made and scanned but no results are reported unless abnormalitie s are noted. If Nucleated CSF CT result is 6 /mcL or greater, a smear is made and manual differential is performed and reported. Nucleated CSF CT results on a CSF fluid must be correlated with clinical condition. RBC CSF CT 0 /mcl [facility] Specimen (Source) Anatomical Collection Method Collection Time Re ceived Time Location / / Volume Laterality Cerebrospinal Fluid 07/09/2021 8:37 07/09 AM EDT 9:06 AM EDT Resulting Agency Comment Spec In Lab Sanaz Rivas MD BODY FLUIDS AND STOOLS ORDER ONIEL Performing Organization Address City/State/ZIP Code Phon e Number [address] CSF DESC 4 (07/09/2021 8:37 AM EDT) Patholo gist Method Time Signature Tube Num CSF 4 [facility] #[address] [facility] Color CSF #[address] [facility] Appear CSF #[address] [facility] Tot Vol CSF #[address] [facility] Specimen (Source) Anatomical Collection Method Collection Time Re ceived Time Location / / Volume Laterality Cerebrospinal Fluid 07/09/2021 8:37 07/09 AM EDT 9:06 AM EDT Resulting Agency Comment Spec In Lab Sanaz Rivas MD BODY FLUIDS AND STOOLS ORDER ONIEL Performing Organization Address City/[facility]/ZIP Code Phon e Number [address] CSF DESC 3 (07/09/2021 8:37 AM EDT) [facility] [employer] Method Time Signature Tube Num CSF 3 [facility] Color CSF #[address] [facility] Appear CSF #[address] [facility] Tot Vol CSF #[address] [facility] Specimen (Source) Anatomical Collection Method Collection Time Re ceived Time Location / / Volume Laterality Cerebrospinal Fluid 07/09/2021 8:37 07/09 AM EDT 9:06 AM EDT Resulting Agency Comment Spec In Lab Sanaz Rivas MD BODY FLUIDS AND STOOLS ORDER ONIEL Performing Organization Address City/State/ZIP Code Phon e Number [address] CSF DESC 2 (07/09/2021 8:37 AM EDT) Patholo gist Method Time Signature Tube Num CSF 2 [facility] Color CSF #[address] [facility] Appear CSF #[address] [facility] Tot Vol CSF #[address] [facility] Specimen (Source) Anatomical Collection Method Collection Time Re ceived Time Location / / Volume Laterality Cerebrospinal Fluid 07/09/2021 8:37 07/09 AM EDT 9:06 AM EDT Resulting Agency Comment Spec In Lab Sanaz Rivas MD BODY FLUIDS AND STOOLS ORDER ONIEL Performing Organization Address City/[facility]/ZIP Code Phon e Number [address] CSF DESC 1 (07/09/2021 8:37 AM EDT) [facility] [employer] Method Time Signature Tube Num CSF 1 [facility] Color CSF #[address] [facility] Appear CSF #[address] [facility] Tot Vol CSF #[address] [facility] Specimen (Source) Anatomical Collection Method Collection Time Re ceived Time Location / / Volume Laterality Cerebrospinal Fluid 07/09/2021 8:37 07/09 AM EDT 9:06 AM EDT Resulting Agency Comment Spec In Lab Sanaz Rivas MD BODY FLUIDS AND STOOLS ORDER ONIEL Performing Organization Address City/[facility]/ZIP Code Phon e Number [address] CSF Culture (07/09/2021 8:37 AM EDT) Component Value Ref Test Analysis Performed At [facility] [employer] Range Method Time Signature Central No growth [facility] Nervous [facility] LABORATORY Gram Stain Cytocentrifuge Gram Stain performed [facility] No Neutrophils seen [place] No microorganisms seen. [facility] Specimen (Source) Anatomical Collection Method Collection Time Re ceived Time Location / / Volume Laterality Cerebrospinal Fluid 07/09/2021 8:37 07/09 AM EDT 9:13 AM EDT Resulting Agency Comment Spec In Lab Sanaz Rivas MD MICROBIOLOGY - GENERAL ORDER ONIEL Performing Organization Address City/State/ZIP Code Phon e Number [place] [id number] LAB[address] Lyme CSF IgG w/Ab Index Reflex (07/09/2021 8:37 AM EDT) Component Value Ref Test Analysis Performed At [facility] Range Method Time Signature Lyme [place] CSF Test ?Result ? Flag ??Unit ??RefValue [facility] Lyme PHARMACIST ASSISTANT Infection IgG w/ AI Reflex HOSPITAL ??Lyme PHARMACIST ASSISTANT Infection IgG, C SF ? Negative ? Negative LABORATORY ??Lyme PHARMACIST ASSISTANT Infection IgG Interp ? SEE COMME NTS ?No antibodies to Lyme Borrelia species detected in ?cerebrospinal fluid. A negative result in a patient ?with appropriate exposure history and symptoms ?consistent with neuroinvasive Lyme disease should not ?be used to exclude infection. If not already performed , ?testing for antibodies to Lyme Borrelia species ?in serum should be performed. ? ADDITIONAL INFORMATION ------ ?This test was developed and its performance characteri stics ?determined by [facility] in a manner consistent with ?CLIA requirements. This test has not been cleared or ?approved by the U.S. Food and Drug Administration. ??Lyme PHARMACIST ASSISTANT Infection IgG, S ? SEE COM MENTS ?CSF screen was negative for IgG-class antibodies to ?Lyme Borrelia species. Testing for IgG-class antibodie s ?to Borrelia in serum is not indicated and was not perf ormed. ?Test Performed by: ?[facility] ?[address] [place] [address] ?Speech And Language Clinician: Bryant Verde M.D. Ph.D.; CLIA# [id number] Specimen (Source) Anatomical Collection Method Collection Time Re ceived Time Location / / Volume Laterality Cerebrospinal Fluid 07/09/2021 8:37 07/10 AM EDT 4:26 PM EDT Resulting Agency Comment Spec In Lab Sanaz Rivas MD MICROBIOLOGY - GENERAL ORDER ONIEL Performing Organization Address City/[facility]/[place] [address] Protein Level CSF (07/09/2021 8:37 AM EDT) P athologist Signature T Protein, CSF 44 15 - 45 [facility] Xanthochromia Neg [facility] Specimen (Source) Anatomical Collection Method Collection Time Re ceived Time Location / / Volume Laterality Cerebrospinal Fluid 07/09/2021 8:37 07/09 AM EDT 9:06 AM EDT Resulting Agency Comment Spec In Lab Sanaz Rivas MD BODY FLUIDS AND STOOLS ORDER ONIEL Performing Organization Address City/State/[place] [address] Glucose Level CSF (07/09/2021 8:37 AM EDT) P athologist Signature Glucose, CSF 54 mg/dL [facility] Comment: CSF at equilibrium equals appro ximately 60-80% of plasma glucose. Specimen (Source) Anatomical Collection Method Collection Time Re ceived Time Location / / Volume Laterality Cerebrospinal Fluid 07/09/2021 8:37 07/09 AM EDT 9:06 AM EDT Resulting Agency Comment Spec In Lab Sanaz Rivas MD BODY FLUIDS AND STOOLS ORDER ONIEL Performing Organization Address City/State/ZIP Code [place] [address] (ABNORMAL) IgG Index CSF (07/09/2021 8:37 AM EDT) [facility] Method Time Signature IgG Index, [place] CSF Test ? Result ?Flag ??Unit ? RefValue [facility] CSF IgG Index Profile HOSPITAL ??IgG Index, CSF ? 0.58 ? <=0.85 LABORATORY ??IgG, CSF ? 4.1 ? mg/dL ?<=8.1 ??Albumin, CSF ? 38.4 ? H ?mg/dL ?<=27.0 ??IgG/Albumin, CSF ? 0.11 ? <=0.21 ??Synthesis Rate, CSF ?3.10 ?mg/24 h ??<=12 ??IgG, S ? 960 ? mg/dL ?767 - 1590 ??IgG/Albumin, S ? 0.19 ? <=0.40 ??Albumin, S ? 5100 ? H ?mg/dL ?3500 - 5000 ?Test Performed by: ?[facility] ?[address] [place] [address] ?Speech And Language Clinician: Brynat Verde M.D. Ph.D.; CLIA# [id number] ?Test Performed by: ?[facility] ?[address] [place] [address] ?Speech And Language Clinician: Bryant Verde M.D. Ph.D.; CLIA# [id number] (A) Specimen Anatomical Collection Method Collection Time Receive d Time (Source) Location / / Volume Laterality Eric Review 07/09/2021 8:37 AM 1 2:29 EDT PM EDT Resulting Agency Comment Spec In Lab Sanaz Rivas MD BODY FLUIDS AND STOOLS ORDER ONIEL Performing Organization Address City/State/[place] [address] Oligoclonal Banding CSF (07/09/2021 8:37 AM EDT) Component Value Ref Test Analysis Performed At Patholo gist Range Method Time Signature Oligo Bands [facility] CSF Test ? Result ?Flag ??Unit ? RefValue [facility] Oligoclonal Banding [facility] ??Serum Bands ?2 ? bands LABORATORY ??CSF Bands ?2 ? bands ??CSF Olig Bands Interpreta tion ?0 ? bands ?<2 ?The oligoclonal band assay detected no unique IgG band s in ?the CSF. ??This is a negative result. ?Test Performed by: ?[facility] ?[address] [place] [address] ?Speech And Language Clinician: Bryant Verde M.D. Ph.D.; IA# [id number] Specimen Anatomical Collection Method Collection Time Receive d Time (Source) Location / / Volume Laterality Eric Review 07/09/2021 8:37 AM 1 2:29 EDT PM EDT Resulting Agency Comment Spec In Lab Sanaz Rivas MD BODY FLUIDS AND STOOLS ORDER ONIEL Performing Organization Address City/State/ZIP Code Phon e Number [place] [address] documented in this encounter Visit Diagnoses Diagnosis Chronic fatigue Other malaise and fatigue Chronic daily headache Headache Acoustic neuroma Benign neoplasm of cranial nerves documented in this encounter Care Teams Graduate Internship Relationship Specialty Start Date End Date Kobe Richardson MD PCP - General Family Medicine 11/23/20 [address] [place] [address] documented as of this encounter
--- OUTSIDE RECORDS SUMMARY | 2022-05-22 15:16 | XMS_ITS | Encounter Summary ---
:1980 Author Organization [facility] [place] [address] Care Team Providers Name Role Phone Kobe Richardson MD Primary Care Provider Encounter Details Date Type Department Care Team Description 06/30/2021 Telephone Sleep Center at [facility] [address] [place] [address] Social History Tobacco Use Types Packs/Day Years [...] on filedocumented in this encounter Care Teams Milk Truck Driver Relationship Specialty Start Date End Date Kobe Richardson MD PCP - General Family Medicine 08/05/20 [place] [address] documented as of this encounter
--- OUTSIDE RECORDS SUMMARY | 2022-05-22 15:16 | XMS_ITS | Encounter Summary ---
:1980 Author Organization [facility] [place] [address] Care Team Providers Name Role Phone Kobe Richardson MD Primary Care Provider Encounter Details Date Type Department Care Team Description 02/11/2021 Telephone [place] [facility] Sanaz Rivas MD [facility] [place] [address] [place] [id number] [phone] (Wo rk) Social History Tobacco Use Types Packs/Day Years Used Date Former Smoker Smokeless Tobacco: Never Used Comments: quit a few years ago Alcohol Use Standard Drinks/Week Comments Not Currently 0 (1 standard drink = 0.6 oz pure alcoho l) Sex Assigned at Date Recorded Not on file documented as of this encounter Miscellaneous Notes Telephone Encounter - Bere Montes RN - 02/11/2021 1:31 PM EDT Call returned to . Pt is currently on the phone with his PCP, is arranging to have reports and ED notes sent to [facility] in preparation for pt's appt 02/18. notified that Dr Rivas is away until February 18, but images are in chart and viewable. worried that no one has read the MRI. was not with pt in ED, reassured that the ED provider would have reviewed and pt would not have been allowed to leave if there was anything worrisome on imaging. does not think pt left AMA. will bring pt to ED with any worsening symptoms. Substation Manager on cell phone very poor, difficult to have conversation. Telephone Encounter - Erika Nazario - 02/11/2021 1:01 PM EDT Patient and his have some concerns from recent ER visit at [facility] on 02/05/21. Requesting to speak with Dr. Rivas's nurse to discuss. Also wondering if Dr. Rivas couldreview MRI sooner than appointment day of 02/18/21. Requested to be put on cancellation list. documented in this encounter Plan of Treatment Not on filedocumented as of this encounter Visit Diagnoses Not on filedocumented in this encounter Care Teams Laser Machine Operator Relationship Specialty Start Date End Date Kobe Richardson MD PCP - General Family Medicine 08/05/20 [place] [address] documented as of this encounter
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
--- OUTSIDE RECORDS SUMMARY | 2022-05-22 15:16 | XMS_ITS | Encounter Summary ---
:1980 Author Organization [facility] Address [address] [place] [address] Care Team Providers Name Role Phone Kobe Richardson MD Primary Care Provider Encounter Details Date Type Department Care Team Description 02/05/2021 Telephone Neurology at [facility] Na Puentes MD [facility] [address] NEUROLOGY DEPT [phone] [place], [place] [address] (Wo rk) Social History Tobacco Use Types Packs/Day Years Used Date Former Smoker Smokeless Tobacco: Never Used Comments: quit a few years ago Alcohol Use Standard Drinks/Week Comments Not Currently 0 (1 standard drink = 0.6 oz pure alcoho l) Sex Assigned at Date Recorded Not on file documented as of this encounter Miscellaneous Notes Telephone Encounter - Na Puentes MD - 02/05/2021 11:11 AM EDT TELEPHONE NOTE Date of call: 02/05/2021 Time of call: 1112 AM Caller: Tootie Florez, CAR DRIVER - [facility] Reason for call: Neurology Hx L sided brain tumor removed in March at . Increased dizziness, balance, ongoing vision changes seem to be worsening ?? -CT head 131/91, 86, 24, 37.1 97% on ra ?? Normally sees Dr Evelyn Muniz Jesse Hamm is 40 y.o. gentleman being followed by Dr. 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 Last seen 01/07/2021 via telehealth with plan for 4 week f/u Nothing scheduled at this time She is concerned for co-mobidity of migraine headaches contributing to patient's sx and complaints. He came of amitriptyline and Topamax due to c/o changes in personality I spent > 10 min on hold for the transfer center I will await a call back Patient reporting baseline facial paralysis, tingling, sleep problems now c/o worsening of sx over 2weeks left sided head pressure - numbness and tingling in the LUE worsening. CT head w/o contrast done ?? Further recommendations He is not looking infected - no fever - no white count Pressure on the left side of the head is non specific. He is continuing to be active. Had to go homeFriday due to blurring of vision - seeing lines on the road. Assessment and Plan: Recommended f/u in the Neurology clinic for in person evaluation and neurological examination with Dr. Rivas Recommend MRI brain with contrast today further characterization of headache - is there a positional component ?? CSF leak or other causes My assessment is based on the information provided to be verbally by the calling provider. I have not had direct communication with the patient and I have no personally examined this patient. AND The treating physician remains in control of the patient's care and treatment. documented in this encounter Plan of Treatment Not on filedocumented as of this encounter Visit Diagnoses Not on filedocumented in this encounter Care Teams Visual Manager Relationship Specialty Start Date End Date Kobe Richardson MD PCP - General Family Medicine 08/05/20 [place] [address] documented as of this encounter
--- OUTSIDE RECORDS SUMMARY | 2022-05-22 15:16 | XMS_ITS | Encounter Summary ---
:1980 Author Organization [facility] [place] [address] Care Team Providers Name Role Phone Kobe Richardson MD Primary Care Provider Encounter Details Date Type Department Care Team Description 07/09/2021 Laboratory Appointment Lab 3L [facility] Chronic fatigue; [facility] Chronic daily headache; [facility] [place] [id number] Social History Tobacco Use Types Packs/Day Years [...] Procedure Name Priority Date/Time Associated Comments Diagnosis LYME CONFIRMATION BY Routine 07/09/2021 9:03 Resu lts for this PERRY AM EDT procedure are i n the results section. OLIGOCLONAL BANDING Routine 07/09/2021 9:03 Chronic fati stephen Results for this BLOOD AM EDT Chronic daily procedure are in headache the results Acoustic neuroma section. IGG INDEX BLOOD Routine 07/09/2021 9:03 Chronic fatigue Results for this AM EDT Chronic daily procedure are in headache the results Acoustic neuroma section. HC VENIPUNCTURE Routine 07/09/2021 9:03 Chronic fatigue Results for this AM EDT Chronic daily procedure are in headache the results Acoustic neuroma section. HC SERUM PROT. Routine 07/09/2021 9:03 Chronic fatigue Results for this ELECTROPHORESIS AM EDT Chronic daily procedure a re in headache the results Acoustic neuroma section. HC GLUCOSE, RANDOM Routine 07/09/2021 9:03 Chronic fatig ue Results for this AM EDT Chronic daily procedure are in headache the results Acoustic neuroma section. documented in this encounter Results Lyme Confirmation by PERRY (07/09/2021 9:03 AM EDT) Component Value Ref Test Analysis Performed At [facility] gist Range Method Time Signature Lyme IgG Negative [facility] LABORATORY Lyme IgM Negative [facility] Lyme Serologic [facility] Confirmation response to [facility] Interp burgdorferi [facility] infection is HOSPITAL not detected. LABORATORY Specimen Anatomical Collection Method Collection Time Receive d Time (Source) Location / / Volume Laterality Blood 07/09/2021 9:03 AM 7:07 EDT AM EDT Resulting Agency Comment Spec In Lab Sanaz Rivas MD IMMUNOLOGY ORDERABLES Performing Organization Address City/[facility]/[place] [address] IgG Index Blood (07/09/2021 9:03 AM EDT) [facility] [place] Method Time Signature IgG Indx Bld Sample in [facility] LABORATORY Specimen Anatomical Collection Method Collection Time Receive d Time (Source) Location / / Volume Laterality Blood 07/09/2021 9:03 AM 9:12 EDT AM EDT Resulting Agency Comment Spec In Lab Sanaz Rivas MD CHEMISTRY ORDERABLES Performing Organization Address City/[facility]/[place] [address] Oligoclonal Banding Blood (07/09/2021 9:03 AM EDT) [facility] [place] Method Time Signature Olig Band Bld Sample in [facility] LABORATORY Specimen Anatomical Collection Method Collection Time Receive d Time (Source) Location / / Volume Laterality Blood 07/09/2021 9:03 AM 9:12 EDT AM EDT Resulting Agency Comment Spec In Lab Sanaz Rivas MD CHEMISTRY ORDERABLES Performing Organization Address City/[facility]/ZIP Code Phon e Number [address] Protein Electrophoresis, serum (07/09/2021 9:03 AM EDT) [facility] Method Time Signature Total Prot 6.7 6.1 - 8.0 [place] Elec g/dL [facility] Albumin Elect 4.67 3.60 - 6.00 [place] g/dL [facility] Alpha1-Globul 0.15 0.10 - 0.30 [place] in g/dL [facility] Alpha2-Globul 0.58 0.40 - 0.90 [place] in g/dL [facility] Beta Globulin 0.64 0.50 - 1.00 [place] g/dL [facility] Gamma 0.66 0.50 - 1.30 [place] Globulin g/dL [facility] M1 Band None None [place] Detected Detected [facility] Specimen Anatomical Collection Method Collection Time Receive d Time (Source) Location / / Volume Laterality Blood 07/09/2021 9:03 AM 9:12 EDT AM EDT Resulting Agency Comment Spec In Lab Sanaz Rivas MD CHEMISTRY ORDERABLES Performing Organization Address City/State/ZIP Code Phon e Number [address] Glucose, random (07/09/2021 9:03 AM EDT) P athologist Signature Glucose Lvl 102 65 - 199 [facility]dL [facility] Comment: Diabetes: >=200 mg/dL plus symp toms Specimen Anatomical Collection Method Collection Time Receive d Time (Source) Location / / Volume Laterality Blood 07/09/2021 9:03 AM 9:12 EDT AM EDT Resulting Agency Comment Spec In Lab Sanaz Rivas MD CHEMISTRY ORDERABLES Performing Organization Address City/State/ZIP Code Phon e Number [address] (ABNORMAL) Lyme IgG & IgM Antibody (07/09/2021 9:03 AM EDT) [facility] Method Time Signature Lyme Pos (A) Neg [place] Screening [place] Antibody [facility] Lyme Ab Confirmation to [place] Comment follow. [facility] Specimen Anatomical Collection Method Collection Time Receive d Time (Source) Location / / Volume Laterality Blood 07/09/2021 9:03 AM 7:07 EDT AM EDT Resulting Agency Comment Spec In Lab Sanaz Rivas MD IMMUNOLOGY ORDERABLES Performing Organization Address City/State/[place] [address] documented in this encounter Visit Diagnoses Diagnosis Chronic fatigue Other malaise and fatigue Chronic daily headache Headache Acoustic neuroma Benign neoplasm of cranial nerves documented in this encounter Care Teams Pmo Manager Relationship Specialty Start Date End Date Kobe Richardson MD PCP - General Family Medicine 08/05/20 [address] [place] [phone] documented as of this encounter
--- OUTSIDE RECORDS SUMMARY | 2022-05-22 15:16 | XMS_ITS | Encounter Summary ---
:1980 Author Organization [place] [address] Care Team Providers Name Role Phone Kobe Richardson MD Primary Care Provider Reason for Visit Reason Onset Date Comments Other 02/11/2021 Encounter Details Date Type Department Care Team Description 02/11/2021 Telephone Neurology at [facility] Sanaz Rivas MD [facility] [place] [address] [place] [address] [place] [address] [phone] (Wo rk) Social History Tobacco Use Types Packs/Day Years Used Date Former Smoker Smokeless Tobacco: Never Used Comments: quit a few years ago Alcohol Use Standard Drinks/Week Comments Not Currently 0 (1 standard drink = 0.6 oz pure alcoho l) Sex Assigned at Date Recorded Not on file documented as of this encounter Miscellaneous Notes Telephone Encounter - AntoineJade - 02/11/2021 12:03 PM EDT Call Center / [place] Message - General Issue Call Provider patient sees in Clinic: Sanaz Rivas Caller and relationship (if other than patient-full name): ulises Nair Call back number: [phone] Ok to leave a message: yes Reason for call: [facility] received the imaging results for this pt, but were missing the office notes. In order to get those, the pt said a formal request needs to be faxed on letterhead to the ER at [facility] for ER visit on 02/05/2021. It needs to be marked as urgent so they can get them back to us in a timely manner. Their Fax #: Disposition of Call (choose one and remove others): ??? Routine message sent to Box Office Manager: X Nurse/[place] contacted via: Message: y Call: n Pager: n Telephone Encounter - Erika Nazario - 02/11/2021 12:03 PM EDT Urgently faxed 02/11/21. documented in this encounter Plan of Treatment Not on filedocumented as of this encounter Visit Diagnoses Not on filedocumented in this encounter Care Teams Proof Press Operator Relationship Specialty Start Date End Date Kobe Richardson MD PCP - General Family Medicine 08/05/20 [address] [place] [address] documented as of this encounter
--- OUTSIDE RECORDS SUMMARY | 2022-05-22 15:16 | XMS_ITS | Encounter Summary ---
:1980 Author Organization [facility] [place] [address] Care Team Providers Name Role Phone Syed Leong MD Primary Care Provider Encounter Details Date Type Department Care Team Description 08/02/2020 Office Visit Audiology at [facility] Maureen Dunham, Sensorineural hearing [facility] AUD loss (SNHL) of left ear [facility] unrestricted [place], [place] CENTER hearing of right ear [id number] AUDIOLOGY DEPT [phone] [place], [place] [address] Social History Tobacco Use Types Packs/Day Years Used Date Former Smoker Smokeless Tobacco: Never Used Comments: quit a few years ago Alcohol Use Standard Drinks/Week Comments Not Currently 0 (1 standard drink = 0.6 oz pure alcoho l) Sex Assigned at Date Recorded Not on file documented as of this encounter Progress Notes Maureen Dunham AUD - 08/02/2020 1:00 PM EST Flavio Hamm was seen for an audiologic evaluation. Please refer to the scanned audiogram in the electronic medical record for findings, impressions and recommendations. Ekta Pisano [place] [address] [phone] (fax) \ documented in this encounter Plan of Treatment Not on filedocumented as of this encounter Procedures Procedure Name Priority Date/Time Associated Comments Diagnosis COMPREHENSIVE HEARING Routine 08/02/2020 12:43 Re sults for this TEST PM EST procedure are i n the results section. documented in this encounter Results Comprehensive hearing test (08/02/2020 12:43 PM EST) Specimen (Source) Anatomical Collection Method Collection Time Re ceived Time Location / / Volume Laterality 08/02/2020 12:43 PM EST Narrative [facility] - 08/02/2020 12:43 PM EST ENT consult to follow with Dr. Welsh Could consider left hearing aid. ??He is not interested at this time. ?? Procedure Note Unknown - 08/02/2020Formatting of this n ote might be different from the original. ENT consult to follow with Dr. Welsh Could consider left hearing aid. He is n ot interested at this time. Unknown AUDIOLOGY SERVICES ORDERABLE S Performing Organization Address City/State/ZIP Code Phon e Number [facility] documented in this encounter Visit Diagnoses Diagnosis Sensorineural hearing loss (SNHL) of lef t ear with unrestricted hearing of right ear documented in this encounter Care Teams Road Advisor Relationship Specialty Start Date End Date Syed Leong MD PCP - General Family Medicine 02/28/20 08/04/20 [address] [place] [id number] documented as of this encounter
--- OUTSIDE RECORDS SUMMARY | 2022-05-22 15:16 | XMS_ITS | Encounter Summary ---
:1980 Author Organization [facility] [place] [address] Care Team Providers Name Role Phone Kobe Richardson MD Primary Care Provider Encounter Details Date Type Department Care Team Description 05/01/2022 Ancillary Procedure Radiology Library at Kobe Richardson MD [facility] [address] [facility] [address] [place] [address] [phone] Social History Tobacco Use Types Packs/Day Years [...] Associated Diagnosis Comme nts FILM LIBRARY Routine 05/01/2022 12:00 AM Results for this STORAGE ONLY DX EDT procedure ar e in KNEE the results section. documented in this encounter Results Film Library- Storage Only DX Knee (05/01/2022 12:00 AM EDT) Specimen (Source) Anatomical Location Collection Method / Collectio n Time Received Time / Laterality Volume Narrative RAD - 05/15/2022 8:18 AM EDT This exam is auto-finalizing. It's purpo se is for storage only. Kobe Richardson MD IMG FILM LIBRARY ORDERABLES Performing Organization Address City/State/ZIP Code Phon e Number DH RAD DH [place], [place] documented in this encounter Visit Diagnoses Not on filedocumented in this encounter Care Teams Glost Tile Sorter Relationship Specialty Start Date End Date Kobe Richardson MD PCP - General Family Medicine 08/05/20 [address] [place] [address] documented as of this encounter
--- OUTSIDE RECORDS SUMMARY | 2022-05-22 15:16 | XMS_ITS | Encounter Summary ---
:1980 Author Organization [facility] [place] [address] Care Team Providers Name Role Phone Kobe Richardson MD Primary Care Provider Encounter Details Date Type Department Care Team Description 11/29/2020 TH Visit Neurology at [facility] Sanaz Rivas, Chronic tension-type headach e, intractable; (TeleHealth) [facility] Headache, chronic [place] [id number] [place] [address] [phone] Social History Tobacco Use Types Packs/Day Years Used Date Former Smoker Smokeless Tobacco: Never Used Comments: quit a few years ago Alcohol Use Standard Drinks/Week Comments Not Currently 0 (1 standard drink = 0.6 oz pure alcoho l) Sex Assigned at Date Recorded Not on file documented as of this encounter Progress Notes Sanaz Rivas MD - 11/29/2020 10:00 AM EDT Neurology Outpatient Clinic - Follow up telephone visit due to COVID pandemic and patient unable to log on to video at this time Patient name: Flavio Hamm Date of : 1980 PCP: Kobe Richardson MD CC: neck pain, fatigue HPI: To briefly summarize, Flavio Hamm is a 40 y.o. man with left acoustic neuroma and left central serous retinopathy (TRANSPORT PILOT) with recurrent episodes involving neck pain, dizziness, arm paresthesias/numbness, left eye pain, headaches and exhaustion. Though his acoustic neuroma and TRANSPORT PILOT may account for some of his symptoms, [...] unfortunately this did not help. 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 Afterwards, unfortunately still having SINCLAIR-every day - pounding, exhausted, cant do much Retried Elavil and TPM too Interval history: Sugaring Increased amitryptiline and TPM - to try to ensure SINCLAIR remains controlled 1 week ago- burnt himself on his wrist - got infected- given doxycycline- SINCLAIR/everything went away 3 days ago started going down on amytriptiline- then was going to start with the TPM Last year had fevers, etc and thought he had lyme disease-but testing always came back negative- tx with doxycycline and supplements anyway Working full days, getting a lot done Previously reviewed: Past Medical & Surgical History: [...] Living Situation: lives with and kids Occupation: [employer] Review of systems: [x] All other systems otherwise negative Physical Exam: No physical exam was performed during this telephone visit. Patient was noted to be alert. His language was fluent and conversational without dysarthria or aphasia. Mood and affect were pleasant and congruent. Diagnostic Tests and Imaging: MRI brain 08/02/2020: IMPRESSION 1. Linear enhancement [...] vestibular schwannoma and left central serous retinopathy (TRANSPORT PILOT) with recurrent episodes involving neck pain, dizziness, arm paresthesias/numbness, left eye pain, headaches and exhaustion. Though his acoustic neuroma and TRANSPORT PILOT may have accounted for some of his symptoms, he also has many migrainous features and continued to have daily headaches after resection. Prior history of neck trauma may also account for some of the symptoms he is experiencing though MRI cervical spine was notable for only mild degenerative changes. Many of symptoms did coincide with changing diet and in addition he drinks significant quantities of caffeine for which he has tried adjusting his diet but unfortunately this did not help. Amitriptyline helped but unfortunately with intolerable side effects at higher doses for which top iramate was added. Now also s/p course of doxycycline and resolution of headaches which is great! Hewas hoping to start tapering TPM and Elavil but as it has been less than a month with improvement inheadaches and now is his busiest time of year work [place], I advised a much more slow taper of these me dications. For now will continue 75mg elavil night and 25mg bid TPM- refills given. If SINCLAIR continues to be resolved, may consider slow taper in approximately 3 months. May consider sleep study for further evaluation excessive daytime somnolence, NCS/EMG to evaluate for CTS for tingling in his hands/arms that wake him up in the future should these other symptoms become more problematic. Above plan discussed with patient who is in agreement. RTC in ~1 month or sooner as needed Sanaz Rivas MD [facility] Neurology Patient verbally consents to this telephone visit and understands that this visit may be billed, similar to a clinic office visit. I provided care to the patient today via telephone call. The total time associated with this visit was 30 minutes which was spent reviewing history, discussing possible contributing factors therapeuticoptions expectations and documentation as noted above. documented in this encounter Plan of Treatment Not on filedocumented as of this encounter Visit Diagnoses Diagnosis Chronic tension-type headache, intractab le Chronic tension type headache Headache, chronic daily Headache documented in this encounter Care Teams Drying Machine Back Tender Relationship Specialty Start Date End Date Kobe Richardson MD PCP - General Family Medicine 08/05/20 [address] [place] [address] documented as of this encounter
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
--- OUTSIDE RECORDS SUMMARY | 2022-05-22 15:16 | XMS_ITS | Encounter Summary ---
:1980 Author Organization [facility] Address [address] [place] [address] Care Team Providers Name Role Phone Kobe Richardson MD Primary Care Provider Reason for Visit Consultation (Routine) - Closed Specialty Diagnoses / Procedures Referred By Contact Refer red To Contact Infectious Diseases Diagnoses Weakness Headache, unspecified Weakness Headache, unspecified Kobe Richardson MD [facility] Infectious Dis 5c [address] [place] [address] [address] [place] [address] Fax: Referral ID Status Reason Start Date Expiration Date Visits V isits Requested Authorized [id number] Closed Consult, Test 02/25/2021 08/24/2021 [facility] PCP Updated and/or Approved Encounter Details Date Type Department Care Team Description 03/19/2021 Office Visit Infectious Disease at [facility] Other complicated headache syndrome; [facility] MD Song Generalized weakness [facility] [address] [place] [address] [place] [address] Social History Tobacco Use Types [...] Sign Reading Time Taken Comments Blood Pressure 125/83 03/19/2021 10:54 AM EDT Pulse 80 03/19/2021 10:54 AM EDT Temperature 36.6 ??C (97.9 ??F) 03/19/2021 10:54 AM EDT Respiratory Rate 18 03/19/2021 10:54 AM EDT Oxygen Saturation 98% 03/19/2021 10:54 AM EDT Inhaled Oxygen Concentration - - Weight 79.8 kg (176 lb) 03/19/2021 10:54 AM EDT Height 172.7 cm (5' 8) 03/19/2021 10:54 AM EDT Body Mass Index 26.76 03/19/2021 10:54 AM EDT documented in this encounter Progress Notes Wilbur Looney MD - 03/19/2021 11:00 AM EDT INFECTIOUS DISEASE OUTPATIENT CONSULT NOTE Reason for Consult: SINCLAIR and fatigue with response to antibiotics. Referring Provider: Kobe Richardson MD History of Present Illness: 40 y.o. male with a history of resected Schwannoma. Prior to that he had significant fatigue. Was treated for lyme disease prior. [place] a little better. Was on cefuroxime for 8 months previously for lyme, treated by a near him. Now, he has significant fatigue, taking 4 naps a day, energy level poor. Needs to nap after 1/4 mile of walking. Went on doxycyline for 14 days, helped with SINCLAIR, not with fatigue. just finished a couple of days ago. Back in Aug - also took 10 days of doxy and felt a lot better. Lyme testing negative. February 05, went into the hospital due to inability to speak, remembering, etc. No treatment was given. Ever since then, he had had progressive decline in activity, etc. 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 Mid February - Dx with pyelonephritis, was given levofloxacin, took for 4 days, felt better but switched to cefuroxime. Had improvement in the SINCLAIR and fatigue. Prednisone for 1 week (5-10 weeks) also helped. Had some swelling in the left head which resolved on its own. More recently, he looks like chronic fatigue syndrome on the Internet and based on a website, 2 daysago, took a huge amount of Vit D 40K units. [place] a lot better. Worked out in the AM (has not been for 3 years). Took another 40K IU of Vit D. Now feels 100% better today. In speaking to him, he is not completely sure what is going on, just feels that he has had debilitating fatigue and headaches at least since the surgery. His fatigue actually did start prior to the surgery as well. He denies any fevers chills or sweats, and any other infectious syndrome recently. He denies any other exposures or illnesses. He is seeing neurology as well. Review of Systems: Pertinent positives and negatives noted in HPI. All other systems reviewed and found negative. Allergies: Allergies Allergen Reactions ??? Amoxicillin-Pot Clavulanate Angioedema ??? Bupropion ??? Naproxen Other (See Comments) Throat swelled 08/18 ??? Sulfa (Sulfonamide Antibiotics) Past Medical, Surgical, Family and Social History reviewed and updated in EMR: PMH is in the Problem List. Physical Exam: Last value Range last 24 hrs Temperature Temp: 36.6 ??C (97.9 ??F) Temp: [36.6 ??C (97.9 ??F)] Heart Rate Heart Rate: 80 Heart Rate: [80] Blood Pressure BP: 125/83 BP: (125)/(83) Respiratory Rate Resp: 18 Resp: [18] SpO2 SpO2: 98 % SpO2: [98 %] General Looks well, alert and oriented HEENT No scleral icterus, clear oropharynx Left ear with clear canal, no TM abnormalities. No fluid collections or swelling above surgical site. Heart Regular, no murmur Lungs Clear Abdomen Normoactive bowel sounds, soft, not tender, no obvious mass Extremities No joint swelling, no edema Skin No rash Neuro Grossly intact except for left facial nerve palsy Laboratory: Sed Rate (mm/hr) Date Value 01/08/2021 4 Vit D level ok in December. Microbiology: None - though patient gives verbal report of multiple negative lyme tests. Radiology/Studies/Procedures: Personally reviewed MRI head - changes from post -op. REcent MRI from January without significant change from his MRI from July 2020 Assessment: Flavio Hamm is a 40 y.o. male with a history of fatigue and s/p resection of Schwannoma. Is verydifficult to ascertain whether or not he truly had significant improvement with the antibiotics. It sounds as though each course of doxycycline did make him feel better. Out of concern for the possibility of a deep an indolent postoperative infection, I had our radiologist review his MRI scan that he had at [facility]. This showed no change from the MRI back in July so this argues very strongly againstan infectious process. At times, people can have improvement in symptoms due to the anti-inflammatory effects of doxycycline. I suspect that this is what is happened. He did state that he had some improvement with prednisone, but his most striking improvement is with taking high-dose vitamin D. At thecurrent time he states that after taking the high-dose vitamin D he feels almost back to normal without headaches or fatigue, even working out at 4 AM. I discussed with him that this is not my specialty and that he should touch base with his primary care provider as well as neurology regarding this. Based on his verbal report of no history of positive Lyme serology, I think the patient does not have a history of Lyme and should not be treated further with any antibiotics unless a new syndrome arisesthat is consistent. I spoke to him and his at length about my thoughts and the were appreciative and understanding. Recommendations: Requested Second read of MRI head February 05 at [facility]. -This was done, see results above. Will discuss with neurology. ENT and NSG depending on findings No further antibiotics warranted att his time. PCP f/u re: Vit D. He will follow up with me only as the need arises. documented in this encounter Plan of Treatment Not on filedocumented as of this encounter Results Request for 2nd read [...] who have questions please contact the health post acute care nurse practitioner that requested your imaging first. ? Narrative 03/20/2021 12:04 PM EDT EXAMINATION: REQUEST FOR 2ND READ MR HEAD CLINICAL HISTORY: S/P resection of Schwa nnoma. ??repeat imaging done for H/A and fatigue.; Sending Institution [facility] - MRI is in the system; Date of exam [id number]; I believe a reinterpretation o f this exam may alter care of Patient. Yes; S/P resection of Schwannoma. ??repe at imaging done for H/A and fatigue. TECHNIQUE: MR images of the brain acquired before a nd after the administration of intravenous [facility] IAC protocol. COMPARISON: Multiple MR brain dating [...] original. EXAMINATION: REQUEST FOR 2ND READ MR HEA D CLINICAL HISTORY: S/P resection of Schwa nnoma. repeat imaging done for H/A and fatigue.; Sending Institution [facility] - MRI is in the system; Date of exam [id number]; I believe a reinterpretation o f this exam may alter care of Patient. Yes; S/P resection of Schwannoma. repeat imaging done for H/A and fatigue. TECHNIQUE: MR images of the brain acquired before a nd after the administration of intravenous Dotarem [facility]. IAC protocol. COMPARISON: Multiple MR brain dating [...] ho have questions please contact the health post acute care nurse practitioner that requested your imaging first. Wilbur Looney MD IMG OUTSIDE INTERPRETATION O RDERABLES documented in this encounter Visit Diagnoses Diagnosis Other complicated headache syndrome Generalized weakness Other malaise and fatigue Other complicated headache syndrome documented in this encounter Care Teams Jar Capper Relationship Specialty Start Date End Date Kobe Richardson MD PCP - General Family Medicine 08/05/[address] [place] [address] [place] [id number] documented as of this encounter
--- OUTSIDE RECORDS SUMMARY | 2022-05-22 15:16 | XMS_ITS | Encounter Summary ---
:1980 Author Organization [facility] [place] [address] Care Team Providers Name Role Phone Kobe Richardson MD Primary Care Provider Reason for Visit Reason Onset Date Comments Appointment 11/07/2020 Encounter Details Date Type Department Care Team Description 11/07/2020 Telephone Neurology at [facility] Sanaz Rivas MD Appointment [facility] [place] [address] [place] [address] [phone] (Wo rk) Social History Tobacco Use Types Packs/Day Years Used Date Former Smoker Smokeless Tobacco: Never Used Comments: quit a few years ago Alcohol Use Standard Drinks/Week Comments Not Currently 0 (1 standard drink = 0.6 oz pure alcoho l) Sex Assigned at Date Recorded Not on file documented as of this encounter Miscellaneous Notes Telephone Encounter - Jolene Navas Viraj - 11/07/2020 8:06 AM EST Call Center / Aquatics Director Message - General Issue Call Provider patient sees in Clinic: Evelyn Caller and relationship (if other than patient-full name): self Call back number: [phone] Ok to leave a message: y Reason for call: Patient will be at work and cannot do telehealth from there. Patient is requesting a TOV. Patient was a advised that neuro doesn't do TOV. Disposition of Call (choose one and remove others): ??? Red Arrow Message Reason red arrow Message: n ??? Routine Message sent to the Nurse: n ??? Routine message sent to Aquatics Director: y documented in this encounter Plan of Treatment Not on filedocumented as of this encounter Visit Diagnoses Not on filedocumented in this encounter Care Teams Zookeeper Relationship Specialty Start Date End Date Kobe Richardson MD PCP - General Family Medicine 08/05/20 [address] [facility] [address] documented as of this encounter
--- OUTSIDE RECORDS SUMMARY | 2022-05-22 15:16 | XMS_ITS | Encounter Summary ---
:1980 Author Organization [facility] Address [facility] [address] [place] [address] Care Team Providers Name Role Phone Kobe Richardson MD Primary Care Provider Reason for Referral Consultation (Routine) - Closed Specialty Diagnoses / Procedures Referred By Contact Refer red To Contact Sleep Center Diagnoses Chronic fatigue Chronic daily headache Sleep disturbance Sanaz Rivas MD [facility] Sleep Medicine [facility] [address] r [address] [place] [address] [place] [address] Fax: Referral ID Status Reason Start Date Expiration Date Visits V isits Requested Authorized [id number] Closed Consult, 01/07/2021 01/07/2022 1 1 Test & Treat Encounter Details Date Type Department Care Team Description 01/07/2021 TH Visit Neurology at [facility] Sanaz Rivas, Chronic fatigue; (TeleHealth) [facility] Chronic daily headache; Drive [facility] Medical Sleep [place] [address] [place] [address] [phone] Social History Tobacco Use Types Packs/Day Years Used Date Former Smoker Smokeless Tobacco: Never Used Comments: quit a few years ago Alcohol Use Standard Drinks/Week Comments Not Currently 0 (1 standard drink = 0.6 oz pure alcoho l) Sex Assigned at Date Recorded Not on file documented as of this encounter Progress Notes Sanaz Rivas MD - 01/07/2021 2:00 PM EDT Neurology Clinic - Telehealth visit Patient name: Flavio Hamm Date of : 1980 PCP: Kobe Richardson MD CC: neck pain, fatigue HPI: To briefly summarize, Flavio Hamm is a 40 y.o. 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 Though his acoustic neuroma and ACCOUNTING ASSISTANT may account for some of his symptoms, [...] visit and was approaching his busy season. Interval history: Came off all medication Elavil and TPM- [...] SINCLAIR always on left where scar is Previously reviewed: Past Medical & Surgical History: [...] Living Situation: lives with and kids Occupation: [employer] Review of systems: [x] All other systems otherwise negative Physical Exam: No physical exam was performed during this tele health visit. Patient was noted to be alert. His language was fluent and conversational without dysarthria or aphasia. Mood and affect were pleasant and congruent. Decreased left nasolabial fold. 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 Though his acoustic neuroma and ACCOUNTING ASSISTANT may have accounted for some of his [...] but unfortunately this did not help. Amitriptyline and topiramate combination seem to be helping however this was causing intolerable s amberly effects for which he has discontinued these. Currently the headaches seem to only be where his residual scar is. In addition he has excessive fatigue which is not clear to what extent a primary sleep disorder may be contributing to chronic daily headaches. Recommendations: Expand labs to look for contributing causes to chronic fatigue and SINCLAIR Will refer to sleep clinic Will try lidoderm jelly to see if this may help with tenderness around scar- discussed risks including that it is absorbed and metabolized Discussed consideration for repeat MRI but patient is claustrophobic May consider referral to SINCLAIR clinic Above plan discussed with patient who is in agreement. RTC in ~1 month or sooner as needed Sanaz Rivas MD [facility] Neurology Total time associated with this visit was 30 minutes which was spent reviewing records, obtaining history and physical, counseling, coordination of care and documentation as described above. documented in this encounter Plan of Treatment Scheduled Referrals Name Type Priority Associated Diagnoses Order S chedule Referral to Sleep Outpatient Referral Routine Chronic fa tigue Ordered: Disorders Center Chronic daily 01/07/2021 headache Sleep disturbance documented as of this encounter Results Testosterone, total and free (01/08/2021 3:29 PM EDT) athologist Signature Testo Total 258 250 - 1100 [facility] ng/dL [facility] Comment: For additional information, please refer to http://education.[employer]/fa q/ [email or web address] (This link is being provided for informa tional/ educational purposes only.) This test was developed and its analytic al performance characteristics have been determined by [facility] [place], [place]. It has not been cleared or approved by the U.S. Food and Drug Administration. This assay has been sherley dated pursuant to the CLIA regulations and is used for clinical purposes. Testo Free 37.7 35.0 - 155.0 pg/mL [facility] Comment: This test was developed and its analytic al performance characteristics have been determined by [employer] [place], [place]. It has not been cleared or approved by the U.S. Food and Drug Administration. This assay has been sherley dated pursuant to the CLIA regulations and is used for clinical purposes. Test Performed by [employer] [place], [facility] [place], [address] [place] [address] 2014 09 Bruno Shoemaker M.D., Ph.D., Director surgical specialty center [email or web address] , [facility] [id number] Specimen Anatomical Collection Method Collection Time Receive d Time (Source) Location / / Volume Laterality Blood specimen 01/08/2021 3:29 PM 021 4:27 (specimen) EDT PM EDT Resulting Agency Comment Spec In Lab Sanaz Rivas MD CHEMISTRY ORDERABLES Performing Organization Address City/[facility]/ZIP Code Phon e Number [address] Ferritin (01/08/2021 3:29 PM EDT) athologist Signature Ferritin 108 30 - 400 LEODAN HORACE ng/mL [facility] Comment: Pediatric reference ranges not verified at [facility], interpret with caution. Reference ranges for females greater alton n 50 years of age approach values for men, i.e., 30-400 ng/mL. Specimen Anatomical Collection Method Collection Time Receive d Time (Source) Location / / Volume Laterality Blood specimen 01/08/2021 3:29 PM 021 3:37 (specimen) EDT PM EDT Resulting Agency Comment Spec In Lab Sanaz Rivas MD CHEMISTRY ORDERABLES Performing Organization Address City/[facility]/ZIP Code Phon e Number [address] TSH (01/08/2021 3:29 PM EDT) P athologist Signature TSH 1.68 0.27 - 4.20 LEODAN HORACE mcIU/mL [facility] Specimen Anatomical Collection Method Collection Time Receive d Time (Source) Location / / Volume Laterality Blood specimen 01/08/2021 3:29 PM 021 3:37 (specimen) EDT PM EDT Resulting Agency Comment Spec In Lab Sanaz Rivas MD CHEMISTRY ORDERABLES Performing Organization Address City/[facility]/ZIP Code Phon e Number [address] Sedimentation rate (01/08/2021 3:29 PM EDT) athologist Signature Sed Rate 4 2 - 28 LEODAN HORACE mm/hr [facility] Comment: Effective August 23, 2019 new [...] Rivas MD HEMATOLOGY ORDERABLES Performing Organization Address City/[facility]/ZIP Code Phon e Number [address] Methylmalonic acid, serum (01/08/2021 3:29 PM EDT) Patholo gist Method Time Signature Methylmalonic Acid 0.14 <=0.40 [facility] nmol/mL [facility] Comment: ADDITIONAL INFORMATIO N This test was developed and its performa nce characteristics determined by [facility] in a manner co nsistent with CLIA requirements. This test has not been maria a ared or approved by the U.S. Food and Drug Administration. Test Performed by: [facility] [place] [address] Special Certificate Dictator: Bryant Verde M.D. Ph. D.; CLIA# [id number] Specimen Anatomical Collection Method Collection Time Receive d Time (Source) Location / / Volume Laterality Blood specimen 01/08/2021 3:29 PM 021 9:26 (specimen) EDT AM EDT Resulting Agency Comment Spec In Lab Sanaz Rivas MD CHEMISTRY ORDERABLES Performing Organization Address City/[facility]/ZIP Code Phon e Number [address] Vitamin B12 (01/08/2021 3:29 PM EDT) P athologist Signature Vitamin B-12 914 232 - 1,245 [facility] pg/mL [facility] Specimen Anatomical Collection Method Collection Time Receive d Time (Source) Location / / Volume Laterality Blood specimen 01/08/2021 3:29 PM 021 3:37 (specimen) EDT PM EDT Resulting Agency Comment Spec In Lab Sanaz Rivas MD CHEMISTRY ORDERABLES Performing Organization Address City/State/ZIP Code Phon e Number [address] Vitamin D, 25-Hydroxy (01/08/2021 3:29 PM EDT) Patholo gist Method Time Signature 25-OH Vit D 31 21 - 100 [facility] Total ng/mL [facility] 25-OH Vit D Sufficient [facility] LABORATORY Specimen Anatomical Collection Method Collection Time Receive d Time (Source) Location / / Volume Laterality Blood specimen 01/08/2021 3:29 PM 021 3:37 (specimen) EDT PM EDT Resulting Agency Comment Spec In Lab Sanaz Rivas MD CHEMISTRY ORDERABLES Performing Organization Address City/[facility]/[place] [address] (ABNORMAL) Comprehensive metabolic panel (non-fasting) (01/08/2021 3:29 PM EDT) P athologist Signature Glucose Lvl 98 65 - 199 [facility] mg/dL [facility] Comment: Diabetes: >=200 mg/dL plus symp toms BUN 19 10 - 20 mg/dL [facility] Creatinine 0.85 0.80 - 1.50 mg/dL [facility] Sodium 144 135 - 145 mmol/L [facility] Potassium 4.2 3.5 - 5.0 mmol/L [facility] Comment: Please note: ??Patients with WBC >100,00 0 may have falsely elevated Potassium levels. ??For accurate Potassium quantif ication in these patients send serum separator tube (gold top) for subsequent determinations. ??Contact the Clinical Chemistry Laboratory if there are any qu estions. Chloride 106 98 - 107 mmol/L [facility] CO2 25 22 - 31 mmol/L [facility] Anion Gap 13 5 - 15 mmol/L [facility] Calcium 9.4 8.5 - 10.5 mg/dL [facility] Total Protein 7.2 6.1 - 8.0 gm/dL [facility] Albumin 4.8 3.2 - 5.2 gm/dL [facility] AST 36 0 - 39 unit/L [facility] ALT 46 0 - 55 unit/L [facility] Alk Phos 75 40 - 130 unit/L [facility] Total Bilirubin <0.2 (L) 0.2 - 1.3 mg/dL [facility] Estimated GFR 110 >=60 mL/min/1.73 m?? [facility] Comment: This patient? s estimated glomerular [...] Organization Address City/State/[place] [address] documented in this encounter Visit Diagnoses Diagnosis Chronic fatigue Other malaise and fatigue Chronic daily headache Headache Sleep disturbance Sleep disturbance, unspecified documented in this encounter Care Teams Systems Support Engineer Relationship Specialty Start Date End Date Kobe Richardson MD PCP - General Family Medicine 08/05/20 [address] [place] [address] documented as of this encounter
--- OUTSIDE RECORDS SUMMARY | 2022-05-22 15:16 | XMS_ITS | Encounter Summary ---
:1980 Author Organization [facility] [place] [address] Care Team Providers Name Role Phone Kobe Richardson MD Primary Care Provider Reason for Visit Reason Onset Date Comments Appointment 12/30/2020 Encounter Details Date Type Department Care Team Description 12/30/2020 Telephone [place] [facility] Sanaz Rivas [place] Appointment [facility] [place] [address] [place] [address] [phone] (Wo rk) Social History Tobacco Use Types Packs/Day Years Used Date Former Smoker Smokeless Tobacco: Never Used Comments: quit a few years ago Alcohol Use Standard Drinks/Week Comments Not Currently 0 (1 standard drink = 0.6 oz pure alcoho l) Sex Assigned at Date Recorded Not on file documented as of this encounter Miscellaneous Notes Telephone Encounter - Erika Nazario - 12/30/2020 2:43 PM EDT Calling to schedule next available fuv/ Telehealth w/ Dr. Rivas. Telephone Encounter - Sonia-Jada Ernst - 12/30/2020 2:43 PM EDT Flavio salmeron typing secretary call to schedule first available appt. This agent was able to schedule. FYI documented in this encounter Plan of Treatment Not on filedocumented as of this encounter Visit Diagnoses Not on filedocumented in this encounter Care Teams Supervisor Pole Yard Relationship Specialty Start Date End Date Kobe Richardson MD PCP - General Family Medicine 08/05/20 [place] [id number] documented as of this encounter
--- OUTSIDE RECORDS SUMMARY | 2022-05-22 15:16 | XMS_ITS | Encounter Summary ---
:1980 Author Organization [facility] [place] [address] Care Team Providers Name Role Phone Kobe Richardson MD Primary Care Provider Encounter Details Date Type Department Care Team Description 02/05/2021 Ancillary Procedure Radiology Library [place] [address] [place] [address] [phone] Social History Tobacco Use Types Packs/Day Years [...] Diagnosis Comme nts FILM LIBRARY Routine 02/05/2021 8:10 PM Results f or this STORAGE ONLY MR EDT procedure ar e in HEAD the results section. documented in this encounter Results Film Library- Storage Only MR Head (02/05/2021 8:10 PM EDT) Specimen (Source) Anatomical Location Collection Method / Collectio n Time Received Time / Laterality Volume Narrative [facility] - 02/05/2021 8:10 PM EDT This exam is auto-finalizing. It's purpo se is for storage only. Sanaz Rivas MD IMG FILM LIBRARY ORDERABLES Performing Organization Address City/State/ZIP Code Phon e Number DH RAD DH RAD [place], [place] documented in this encounter Visit Diagnoses Not on filedocumented in this encounter Care Teams Mc Kay Stitcher Relationship Specialty Start Date End Date Kobe Richardson MD PCP - General Family Medicine 08/05/20 [address] [place] [address] documented as of this encounter
--- OUTSIDE RECORDS SUMMARY | 2022-05-22 15:16 | XMS_ITS | Encounter Summary ---
:1980 Author Organization [facility] Address [facility] [place] [address] Care Team Providers Name Role Phone Kobe Richardson MD Primary Care Provider Reason for Visit Reason Comments Medication Refill Encounter Details Date Type Department Care Team Description 12/28/2021 Refill [place] [facility] Mikael Garg MD [facility] [place] [address] NEUROLOGY DEPT [phone] [place], [place] [address] (Wo rk) Social History Tobacco Use Types Packs/Day Years Used Date Former Smoker Smokeless Tobacco: Never Used Comments: quit a few years ago Alcohol Use Standard Drinks/Week Comments Not Currently 0 (1 standard drink = 0.6 oz pure alcoho l) Sex Assigned at Date Recorded Not on file documented as of this encounter Miscellaneous Notes Telephone Encounter - Noemy Oliveira CMA - 01/02/2022 8:46 AM EDT Okay, thank you Telephone Encounter - Noemy Oliveira CMA - 12/29/2021 10:08 AM EDT Surescript request for : doxycycline Last rx: 06/05/21 Quantity: 60 Refills: 3 Last appt: 06/20/21 Next appt: documented in this encounter Plan of Treatment Not on filedocumented as of this encounter Visit Diagnoses Not on filedocumented in this encounter Care Teams Ux Design Manager Relationship Specialty Start Date End Date Kobe Richardson MD PCP - General Family Medicine 08/05/20 [address] [place] [address] documented as of this encounter
--- OUTSIDE RECORDS SUMMARY | 2022-05-22 15:16 | XMS_ITS | Encounter Summary ---
:1980 Author Organization [facility] [place] [address] Care Team Providers Name Role Phone Kobe Richardson MD Primary Care Provider Encounter Details Date Type Department Care Team Description 11/08/2020 TH Visit Neurology at [facility] Sanaz Rivas, Headache, chronic (TeleHealth) [facility] [address] [facility] [address] [address] [phone] Social History Tobacco Use Types Packs/Day Years Used Date Former Smoker Smokeless Tobacco: Never Used Comments: quit a few years ago Alcohol Use Standard Drinks/Week Comments Not Currently 0 (1 standard drink = 0.6 oz pure alcoho l) Sex Assigned at Date Recorded Not on file documented as of this encounter Progress Notes Sanaz Rivas MD - 11/08/2020 9:00 AM EST Neurology Outpatient Clinic - Follow up telephone visit due to COVID pandemic and patient unable to log on to video at this time Patient name: Flavio Hamm Date of : 1980 PCP: Kobe Richardson MD CC: neck pain, fatigue HPI: To briefly summarize, Flavio Hamm is a 39 y.o. 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 Though his acoustic neuroma and DRY CLEANING CHECKER may account for some of his symptoms, [...] diet but unfortunately this did not help. Previous visit noted: Had surgery beginning of April now status post a middle fossa resection of an intracanalicular vestibular schwannoma. Unfortunately still having SINCLAIR-every day - pounding, exhausted, cant do much Sometimes very mild nausea, vision messed up a little bit, lasts > 1 hour Nothing better or worse Sleep helps No longer taking elavil- stopped meds after surgery to figure out what was what But it did really help when he took it previously Sleep pattern broken up Has tried no sugar or carbs again - just started yesterday Does not think he has apnea Retried Elavil Interval history: Elavil didn't sit with him well- started lower and slower- taking 12.5mg and that seems to be helping - no doubt that it works but side effects unbearable at higher doses Lots of stress Trying to do more physical labor Previously reviewed: Past Medical & Surgical History: [...] Living Situation: lives with and kids Occupation: [employer] Review of systems: [x] All other systems [...] / Plan: Flavio Hamm is a pleasant 39 y.o. 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 Though his acoustic neuroma and DRY CLEANING CHECKER may have accounted for some of his symptoms, he also has many migrainous features and continues to have daily headaches after resection. Prior [...] but unfortunately this did not help. Amitriptyline has helped but unfortunately with intolerable side effects. We discussed alternatives and he would like to try topiramate. Risks of this medication were discussed and prescription was provided for him today. If he tolerates this well he will discontinue the 12.5 mg amitriptyline. May consider sleep study for further evaluation excessive daytime somnolence, NCS/EMG to evaluate for CTS for tingling in his hands/arms that wake him up in the future should these other symptoms become more problematic. Above plan discussed with patient who is in agreement. RTC in ~1 month or sooner as needed Sanaz Rivas MD [facility] Neurology Patient verbally consents to this telephone [...] as of this encounter Visit Diagnoses Diagnosis Headache, chronic daily Headache documented in this encounter Care Teams Professional Engineer Relationship Specialty Start Date End Date Kobe Richardson MD PCP - General Family Medicine 08/05/20 [address] [place] [address] documented as of this encounter
--- OUTSIDE RECORDS SUMMARY | 2022-05-22 15:16 | XMS_ITS | Encounter Summary ---
:1980 Author Organization [facility] [place] [address] Care Team Providers Name Role Phone Kobe Richardson MD Primary Care Provider Reason for Visit Consultation (Routine) - Closed Specialty Diagnoses / Procedures Referred By Contact Refer red To Contact Neurology Diagnoses Vestibular schwannoma S/P excision of acoustic neuroma Nonintractable headache, unspecified chronicity pattern, unspecified headache type Tristan Zuleta PA [facility] [address] [facility] [place] [address] [place] [address] Fax: Referral ID Status Reason Start Date Expiration Date Visits V isits Requested Authorized [id number] Closed Consult, 08/02/2020 08/02/2021 1 1 Test & Treat Encounter Details Date Type Department Care Team Description 09/10/2020 TH Visit Neurology at [facility] Sanaz Rivas, Chronic tension-type (TeleHealth) [facility] headache, intractable [place] [address] [place] [address] [phone] Social History Tobacco Use Types Packs/Day Years Used Date Former Smoker Smokeless Tobacco: Never Used Comments: quit a few years ago Alcohol Use Standard Drinks/Week Comments Not Currently 0 (1 standard drink = 0.6 oz pure alcoho l) Sex Assigned at Date Recorded Not on file documented as of this encounter Progress Notes Sanaz Rivas MD - 09/10/2020 3:00 PM EST Neurology Outpatient Clinic - Follow up telephone visit due to COVID pandemic and patient unable to log on to video at this time Patient name: Flavio Hamm Date of : 1980 PCP: Kobe Richardson MD CC: neck pain, fatigue HPI: To briefly summarize, Flavio Hamm is a 39 y.o. 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 Though his acoustic neuroma and FIRE PREVENTION SPECIALIST may account for some of his symptoms, he also has many migrainous features. Prior history of neck trauma may also account for some of the symptoms he is experiencing though recent MRI cervical spine notable for only milddegenerative changes. Many of symptoms did coincide with changing diet and in addition he drinks significant quantities of caffeine for which he has tried adjusting his diet but unfortunately this has not helped. Previous visit noted: Rough time, headaches and dizziness and exhaustion To point where he actually feels disoriented Started taking tramadol which he had left over- helping - taking 3-4x/week but doesn't want to keep taking if there is a better option Though still would like to have surgery would like to consider something to alleviate symptoms in interim --> started on Elavil Interval history: Via telephone as having technical issues with zoom Had surgery beginning of April now status [...] yesterday Does not think he has apnea Previously reviewed: Past Medical & Surgical History: [...] Living Situation: lives with and kids Occupation: [employer] Review of systems: Constitutional: No fevers but definitely having chills Eyes: + vision changes in left eye, no diplopia, no blurry vision ENT: No rhinorrhea or pharyngitis, no meningismus CV: No chest pain, + palpitations when hands go numb and chilled Resp: No cough, no shortness of breath GI: + nausea but no vomiting, diarrhea or constipation : No dysuria, no incontinence Heme: No bleeding or bruising Endo: No polyuria or cold intolerance Neuro: See HPI Psych: No depression, normal sleep (other than when he works 80 hrs/week) [x] All other systems otherwise negative Physical Exam: No physical exam was performed during this telephone visit Diagnostic Tests and Imaging: MRI brain 08/02/2020: [...] vestibular schwannoma and left central serous retinopathy (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 Though his acoustic neuroma and FIRE PREVENTION SPECIALIST may have accounted for some of his symptoms, he also has many migrainous features and continues to have daily headaches after resection. Prior history of neck trauma may also account for some of the symptoms he is experiencing thoughMRI cervical spine was notable for only mild degenerative changes. Many of symptoms did coincide with changing diet and in addition he drinks significant quantities of caffeine for which he has tried adjusting his diet but unfortunately this has not helped. We again discussed consideration for sleep study for further evaluation excessive daytime somnolence, NCS/EMG to evaluate for CTS for tingling in his hands/arms that wake him up in addition to prescription medications that may help with migraine headaches such as amitriptyline for example which helped previously but he had discontinued in hopes that surgery would have resolved the headaches. He tolerated well previously and will re-prescribe. Risks again discussed and Rx given. Above plan discussed with patient who is in agreement. RTC in ~2 months or sooner as needed Sanaz Rivas MD [facility] Neurology Patient verbally consents to this telephone visit and understands that this visit may be billed, similar to a clinic office visit. I provided care to the patient today via telephone call. The total time associated with this visit was 25 minutes. documented in this encounter Plan of Treatment Not on filedocumented as of this encounter Visit Diagnoses Diagnosis Chronic tension-type headache, intractab le Chronic tension type headache documented in this encounter Care Teams Painter Maintenance Relationship Specialty Start Date End Date Kobe Richardson MD PCP - General Family Medicine 08/05/20 [place] [address] documented as of this encounter
--- OUTSIDE RECORDS SUMMARY | 2022-05-22 15:16 | XMS_ITS | Encounter Summary ---
:1980 [place] [address] Care Team Providers Name Role Phone Kobe Richardson MD Primary Care Provider Reason for Visit Reason Onset Date Comments Medication Refill 06/04/2021 Encounter Details Date Type Department Care Team Description 06/04/2021 Telephone Neurology at [facility] [address] MD Medication Refill [address] [place] [address] [place] [address] [phone] (Wo rk) Social History Tobacco Use Types Packs/Day Years Used Date Former Smoker Smokeless Tobacco: Never Used Comments: quit a few years ago Alcohol Use Standard Drinks/Week Comments Not Currently 0 (1 standard drink = 0.6 oz pure alcoho l) Sex Assigned at Date Recorded Not on file documented as of this encounter Miscellaneous Notes Telephone Encounter - Swati Barker - 06/04/2021 4:48 PM EDT Patient calling to check the status of this and would like these prescriptions sent to [facility] in [facility] and he can be reached at [phone]. Telephone Encounter - Jade Schultz - 06/04/2021 4:03 PM EDT Call Center / Online Community Manager Message - General Issue Call Provider patient sees in Clinic: Dr Lane Caller and relationship (if other than patient-full name): Joanie Call back number: [phone] Ok to leave a message: yes Reason for call: Patient's called to see where we sent the prescriptions in after today's visit. Doesn't look like the prescriptions for doxycycline and Singulair were called in yet. She requestedthey be sent to [facility] in [place], [place] Disposition of Call (choose one and remove others): ??? Routine Message sent to the Nurse: X Nurse/Online Community Manager contacted via: Message: y Call: n Pager: n documented in this encounter Plan of Treatment Not on filedocumented as of this encounter Visit Diagnoses Not on filedocumented in this encounter Care Teams Ruffling Machine Operator Relationship Specialty Start Date End Date Kobe Richardson MD PCP - General Family Medicine 08/05/20 [place] [address] documented as of this encounter
--- OUTSIDE RECORDS SUMMARY | 2022-05-22 15:17 | XMS_ITS | Encounter Summary ---
:1980 Author Organization [facility] Address [facility] [place] [address] Care Team Providers Name Role Phone Syed Leong MD Primary Care Provider Reason for Referral Consultation (Routine) - Closed Specialty Diagnoses / Procedures Referred By Contact Refer red To Contact Ophthalmology Diagnoses Central serous chorioretinopathy, unspecified laterality Tristan Zuleta PA Batra, Nikhil N, MD [facility] [place] [facility] [place] [address] Phone: Fax: Referral ID Status Reason Start Date Expiration Date Visits V isits Requested Authorized [id number] Closed Consult, 08/02/2020 08/02/2021 1 1 Test & Treat hysical Therapy (Routine) - Closed Specialty Diagnoses / Procedures Referred By Contact Refer red To Contact Physical Therapy Diagnoses Vestibular schwannoma S/P excision of acoustic neuroma Nonintractable headache, unspecified chronicity pattern, unspecified headache type Facial paralysis Tristan Zuleta PA [facility] Sensorineural hearing loss ( SNHL) of left ear with unrestricted hearing of right ear Vestibular schwannoma S/P excision of acoustic neuroma Nonintractable headache, unspecified chronicity pattern, unspecified headache type Facial paralysis [facility] Sensorineural hearing loss ( SNHL) of left ear with unrestricted [place] [address] Drive Procedures [place] [address] Phone: Fax: Referral ID Status Reason Start Date Expiration Date Visits V isits Requested Authorized [id number] Closed Evaluate and 08/02/2020 08/02/2021 1 1 Treat Consultation (Routine) - Closed Specialty Diagnoses / Procedures Referred By Contact Refer red To Contact Neurology Diagnoses Vestibular schwannoma S/P excision of acoustic neuroma Nonintractable headache, unspecified chronicity pattern, unspecified headache type Tristan Zuleta PA [facility] Neurology [address] [facility] [place] [address] [place] [address] Fax: Referral ID Status Reason Start Date Expiration Date Visits V isits Requested Authorized [id number] Closed Consult, 08/02/2020 08/02/2021 1 1 Test & Treat Reason for Visit Reason Comments Follow-up Balance is better. Headaches and tenderness on operative side. Tinnitus in louder. Feeling fatigued with body aches. Encounter Details Date Type Department Care Team Description 08/02/2020 Office Visit Otolaryngology at [facility] Christopher Welsh Vestibular schwannoma; [facility] MD Yanni S/P excision of acoustic neuroma; Drive [facility] Nonintractable headache, uns pecified chronicity pattern, unspecified headache type; [place] [address] CENTER Facial paralysis; [phone] OTOLARYNGOLOGY Sensorineural hearing loss (SNHL) of left ear with unrestricted hearing of right ear; DEPT. Central serous chorioretinopathy, [place] [address] Social History Tobacco Use Types Packs/Day Years Used Date Former Smoker Smokeless Tobacco: Never Used Comments: quit a few years ago Alcohol Use Standard Drinks/Week Comments Not Currently 0 (1 standard drink = 0.6 oz pure alcoho l) Sex Assigned at Date Recorded Not on file documented as of this encounter Last Filed Vital Signs Vital Sign Reading Time Taken Comments Blood Pressure - - Pulse - - Temperature - - Respiratory Rate - - Oxygen Saturation - - Inhaled Oxygen Concentration - - Weight 78.8 kg (173 lb 12.8 oz) 08/02/2020 1:57 PM EST Height 172.7 cm (5' 8) 08/02/2020 1:57 PM EST Body Mass Index 26.43 08/02/2020 1:57 PM EST documented in this encounter Progress Notes Tristan Zuleta PA - 08/02/2020 2:00 PM EST HPI: 39 y.o. male followed for Left Acoustic Neuroma 04/11/2020- Procedure: ??Middle fossa craniotomy with resection of acoustic neuroma. Findings:??cochlea and facial nerves anatomically intact with minimal change of ABR and good facial nerve stim at brainstem (0.05 mA)?? Last appointment summary: Dr. Welsh had a long discussion with the patient regarding his symptoms and recovery after surgery. ?? Facial nerve paralysis: Explained that recovery can continue for months after surgery. It's encouraging that all nerve branches were able to be stimulated following surgery so he expects function will continue to improve. Strongly recommended that he complete his steroid taper to prevent any disruption to normal endocrine function. Also recommended that the patient should continue to use moisturizingointment during the day. He can either wear the moisture chamber or tap eye shut. Discussed that sometimes, a gold weight can be implanted into the eyelid to help eye closure. Patient was agreeable to this and al questions were answered. ?? Recommended evaluation for vestibular PT for his ongoing balance disruption. External referral generated. ?? RTC in 2-3 months with MRI and AE prior Interval history: Thought he was improving since last appointment but got worse two weeks ago For last two weeks: Left Sided SINCLAIR every day, feels like pressure; gets dizziness during headaches- described as a disoriented not spinning or motion. Does have a history of SINCLAIR prior to surgery. Left sided tinnitus- increased over last two weeks; constant, high pitched. Does not keep him up at night Increased exhaustion Has increases time at work- makes [employer] for living. Reports he works for a couple hours in [employer], then goes home to nap and returns to work. Went to PT for dizziness, but PT was making symptoms worse. [place] like appointments would drain his strength PT in [facility]; no CDP- balance was good, so was told CDP not necessary. Exercises described as full body workout Hearing feels like it is stable Facial weakness- Feels like it's improved from last time, but worsens after physical exercise Central Serous Retinopathy- has been seeing opthalmology close to home but for simplicity of schedule would like to transfer care to [facility] ophthalmology. He's happy with his care, but easier for travel purposes to have care at [facility]. Denies any change in vision No fever, night sweats, URI, change in taste, change in smell, history of migraines PMH: reviewed, no interval change System review: the Constitutional and ENT systems are thoroughly reviewed for any changes. Pertinentpositives are listed in the HPI. Physical Exam The patient is well developed, well nourished. Responds to commands appropriately. Vocalizes in a strong clear voice. Alert and oriented x3. Ears: The pinnas are without erythema or mass. Facial motor function strong and symmetrical. Both ears were carefully examined using binocular microscopy Left side: Ear canal clear Tympanic membrane intact and translucent with normal mobility on pneumatic otoscopy. Fistula test isnegative. Right side: Ear canal clear Tympanic membrane intact and translucent with normal mobility on pneumatic otoscopy. Fistula test isnegative. Corneal reflexes are intact bilaterally (CNV) Sharp sensation intact and symmetric bilaterally in all trigeminal branches Masseter strength is equal and symmetrical (CN V) TMJ is non tender Facial Nerve Function is strong and symmetric (CN VII) House-Brackman IV Hitselberger Test - no hypoesthesia in either EAC (CNVII) Palate is midline and voice is strong (CN IX & X) Tongue is midline (CN XII) Shoulder elevation is strong and symmetrical (XI) Ocular Exam: No spontaneous or gaze evoked nystagmus, EOMI with smooth pursuit Eyes Closed Rhomberg - stable Tandem Rhomberg - postural sway Tandem Gait - deferred due to sedation from MRi Fukuda Test - deferred due sedation from MRI Audiological Exam Audiogram 08/02/2020 Right- Normal with borderline loss at 4k Hz Left- Mild to severe SNHL Tympanograms: Right- Type A; Left Type A Word discrimination: Right- 100% at 70 dBdB; Left- 100% at 85dB Labs and Imaging Significant lab values are as follows: none I reviewed the following imaging studies: MRI 08/02/2020: No evidence of residual tumor A/P: Dr Welsh discussed the he's encouraged patient is continuing to make progress and feels like he will continue to progress. Feels like his SINCLAIR and fatigue it most likely due to increased physical output vs pathologic process. He recommended evaluation at [facility] Vestibular PT. He has been going to PT and per his report, is a physical workout vs focused PT. Vestibular PT will be able to evaluate and provide HEP for balance. He does have a history of headaches prior to surgery and these seem to have been exacerbated by his surgery. Dr. Welsh recommended a referral to Neurology- Headache Clinic. Will send referral to [facility]. RTC 6 months or sooner if symptoms worsen IRMA Jenkins, MS, PA-C, [place] [address] phone: [phone] Christopher Welsh MD - 08/02/2020 2:00 PM EST I have discussed the case with Robert EPPS, reviewed the pertinent details in the chart, interviewed and examined the patient. I agree with the documented history, exam findings and management plan.Will refer to PT and headache clinic documented in this encounter Plan of Treatment Scheduled Referrals Name Type Priority Associated Diagnoses Order S chedule Referral to Neurology Outpatient Routine Vestibular Ordere d: Referral schwannoma 08/02/2020 S/P excision of acoustic neuroma Nonintractable headache, unspecified chronicity pattern, unspecified headache type Referral to Physical Outpatient Routine Vestibular Ordered : Therapy Referral schwannoma 08/02/2020 S/P excision of acoustic neuroma Nonintractable headache, unspecified chronicity pattern, unspecified headache type Facial paralysis Sensorineural hearing loss (SNHL) of left ear with unrestricted hearing of right ear Referral to Outpatient Routine Central serous Ordered: Ophthalmology Referral chorioretinopathy, 08/02/20 20 unspecified laterality documented as of this encounter Visit Diagnoses Diagnosis 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 S/P excision of acoustic neuroma Other postprocedural status Nonintractable headache, unspecified chr onicity pattern, unspecified headache type Facial paralysis Richardson's palsy Sensorineural hearing loss (SNHL) of lef t ear with unrestricted hearing of right ear Central serous chorioretinopathy, unspec ified laterality documented in this encounter Care Teams Waste Transportation Technician Relationship Specialty Start Date End Date Syed Leong MD PCP - General Family Medicine 02/28/20 08/04/20 [address] [facility] [address] [place] [id number] documented as of this encounter
--- OUTSIDE RECORDS SUMMARY | 2022-05-22 15:17 | XMS_ITS | Encounter Summary ---
:1980 Author Organization [facility] Address [place] [address] Care Team Providers Name Role Phone Syed Leong MD Primary Care Provider Encounter Details Date Type Department Care Team Description 04/16/2020 Telephone Neurosurgery at [facility] Lizzie Singh MD [facility] [place] [address] NEUROSURGERY [phone] [place], [place] [address] (Wo rk) Social History Tobacco Use Types Packs/Day Years Used Date Former Smoker Smokeless Tobacco: Never Used Comments: quit a few years ago Alcohol Use Standard Drinks/Week Comments Not Currently 0 (1 standard drink = 0.6 oz pure alcoho l) Sex Assigned at Date Recorded Not on file documented as of this encounter Miscellaneous Notes Telephone Encounter - Lizzie Singh MD - 04/16/2020 8:45 PM EDT This is continuation of my previous note that was signed prematurely. When Fam developed his headache today, his gave him his Prednisone as prescribed and he felt better and took a nap. He has otherwise been stable without new symptoms. Given the headache, unchanged/worsened facial weakness, and i mprovement with steroids, I suspect this is edema related. I asked Joanie to call us back if symptomsreturned and to present to the ED if he develops new neurological symptoms. I also asked that she contact ENT to make them aware of the situation and obtain new steroid recommendations. Lizzie Singh MD Telephone Encounter - Lizzie Singh MD - 04/16/2020 8:23 PM EDT I received a call from Fam's , Joanie, today. She tells me that Fam had been doing well since discharge, but that he developed a terrible headache today. He has been taking Dilaudid as needed and scheduled Tylenol. He was discharged with a prednisone taper prescribed by ENT, but he didn't take it for the first day and half because he didn't like the anxiousness steroids caused while he was in the hospital. I asked how the mobility of Fam's face was and Thiago tells me it isnt' really moving. When Fam dev documented in this encounter Plan of Treatment Not on filedocumented as of this encounter Visit Diagnoses Not on filedocumented in this encounter Care Teams Summer Law Associate Relationship Specialty Start Date End Date Syed Leong MD PCP - General Family Medicine 02/28/20 08/04/20 [address] [facility] [address] [place] [id number] documented as of this encounter
--- OUTSIDE RECORDS SUMMARY | 2022-05-22 15:17 | XMS_ITS | Encounter Summary ---
:1980 Author Organization [facility] [address] Care Team Providers Name Role Phone Syed Leong MD Primary Care Provider Encounter Details Date Type Department Care Team Description 04/25/2020 Orders Only Otol[facility]ology at [facility] Yola Mahajan, Acoustic neuroma; 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
--- OUTSIDE RECORDS SUMMARY | 2022-05-22 15:17 | XMS_ITS | Encounter Summary ---
:1980 Author Organization [facility] [place] [address] Care Team Providers Name Role Phone Syed Leong MD Primary Care Provider Reason for Visit Auth/Cert Specialty Diagnoses / Procedures Referred By Contact Refer red To Contact Diagnoses Vestibular schwannoma vestib schwannoma Procedures PRO INFRATEMPORAL APPROACH/PREAURICULAR PRO THERAPEUTIC SPINAL PUNCTURE DRAINAGE CEREBROSPINAL FLUID PRO MICROSURG TECHNIQUES, REQ OPER MICROSCOPE PRO RESECT INFRATEMP FOSSA/EXTRADURL PRO EXCIS TRANSTEMP CP ANGLE TUMOR @CRANI-INFRATEMPORAL APPROAC H TO MIDDLE FOSSA (WRVU 47.04) SPINAL PUNCTURE, THERAPEUTIC, FOR DRAINAGE OF CSF (LUMBAR DRAIN PLACEMENT) (WRVU 1.35) MICROSCOPE USE (WRVU 3.46) @CRANI-EXC ORRESECTION EXTRADURAL LESION-ANT. FOSSA (WRVU 32.57) @CRANIECTOMY,TRANSTEMPORAL- ACOUSTIC NEUROMA (WR VU 54.08) Referral ID Status Reason Start Date Expiration Date Visits Requ ested Visits Authorized [id number] 1 1 Encounter Details Date Type Department Care Team Description 04/08/2020 Public [facility] Public [facility] Leodan VILLAGOMEZID-19 ruled out [facility] (Primary Dx) [facility] [place] [address] Social History Tobacco Use Types Packs/Day Years Used Date Former Smoker Smokeless Tobacco: Never Used Comments: quit a few years ago Sex Assigned at Date Recorded Not on file documented as of this encounter Plan of Treatment Not on filedocumented as of this encounter Procedures Procedure Name Priority Date/Time Associated Diagnosis Comme nts COVID-19 PCR STAT 04/08/2020 11:26 AM COVID-19 ruled out Re sults for this EDT procedure are i n the results section . documented in this encounter Results COVID-19 PCR (04/08/2020 11:26 AM EDT) [facility] Method Time Signature SARS-CoV-2 Not Detected Not Detected LEODAN RNA [facility] Comment: This result should be interpreted in com bination with the clinical observations, patient history and epidem iological information. For testing of asymptomatic individuals, assay performa nce characteristics and clinical utility have not been evaluated. Testing for SARS-CoV-2 (Severe acute respiratory syndrome coronavirus 2, form erly known as 2018 novel coronavirus or 2019-nCoV) to aid in the diagnosis of CO VID-19 is performed using the [employer] RealTime SARS-CoV-2 as authorized by the FDA Emergency Use Authorization (EUA). This EUA assay is intended for In-vitro Diagnostic (IVD) use with respiratory specimens such as nasopharyngeal swabs c ollected from individuals during the acute phase of infection. This assay is performed based on the instructions for use provided by the [employer] and additional guidance provided by CDC and FDA. Testing is performed in the [facility] within the Department of Path ology and Laboratory Medicine at [facility], cert ified under the Clinical Laboratory Improvement Amendments of 1988 (CLIA), 4 2 U.S.C. section 263a, to perform high complexity tests. Assay performance has been verified according to clinical laboratory regulatory requirements. Test results are provided above. A resul t of Not Detected indicates that the viral RNA target is not present but does not preclude SARS-CoV-2 infection. False negative results may occur if a sp ecimen is improperly collected, transported or handled; if amplification inhibitors are present; or if inadequate numbers of viral particles ar e present in the specimen. A result of Detected suggests a current or recent infection and the patient is presumed to be infected. As required or requested by public health authorities, positive specimens may be sent for additional lori ting. Positive and negative predictive values for this test are highly dependen t on disease prevalence. A result of Invalid indicates that neither the vir al RNA targets nor the internal control target was detected. An invalid result s uggests the presence of inhibitors. Recollection is recommended in the case of an invalid result. CDC COVID-19 criteria for testing on hum an specimens and clinical management guidance information are available at [facility] CDC Coronavirus Disease 2019 (COVID-19) webpage under Information fo r Healthcare Professionals (https://www.cdc.gov/coronavirus/2019-nc ov/hcp/index.html) Additional information about this and ot her EUA tests can be found in provider and patient fact sheets at the following FDA website: https://www.fda.gov/medical-devices/pthhpuaao-sndqtipkah-mesigdw-devices/emergen bd-wbb-sjdvypspmhtygf#hlzfx45hrb SARS-Cov-2 RNA Source CHIP MIXING MACHINE OPERATOR Swab [facility] Specimen (Source) Anatomical Collection Method Collection Time Re ceived Time Location / / Volume Laterality Nasopharyngeal swab 04/08/2020 11:26 07/2 03/2020 (specimen) AM EDT 11:26 AM EDT Comment: Symptoms->Fever / Respiratory S ymptoms Resulting Agency Comment Spec In Lab Omar Jacobs MD MICROBIOLOGY - GENERAL ORDER ONIEL Performing Organization Address City/State/[place] [address] documented in this encounter Visit Diagnoses Diagnosis COVID-19 ruled out - Primary documented in this encounter Care Teams Manager Decision Support Relationship Specialty Start Date End Date Syed Leong MD PCP - General Family Medicine 02/28/20 08/04/20 [address] [address] [place] [address] documented as of this encounter
--- OUTSIDE RECORDS SUMMARY | 2022-05-22 15:17 | XMS_ITS | Encounter Summary ---
:1980 Author Organization [facility] [place] [address] Care Team Providers Name Role Phone Syed Leong MD Primary Care Provider Encounter Details Date Type Department Care Team Description 04/08/2020 Telephone Otolaryngology at [facility] [place] [address] Social History Tobacco Use Types Packs/Day Years Used Date Former Smoker Smokeless Tobacco: Never Used Comments: quit a few years ago Sex Assigned at Date Recorded Not on file documented as of this encounter Miscellaneous Notes Telephone Encounter - Yola Mahajan RN - 04/08/2020 10:25 AM EDT Patient's call returned. Numerous preoperative and postoperative questions reviewed and answered with stated understanding. Patient will call back if he has further questions or concerns. Completed preoperative covid-19 test this AM. Patient voices understanding and acceptance of this information and will call back if any further questions or concerns. documented in this encounter Plan of Treatment Not on filedocumented as of this encounter Visit Diagnoses Not on filedocumented in this encounter Care Teams Juice Standardizer Relationship Specialty Start Date End Date Syed Leong MD PCP - General Family Medicine 02/28/20 08/04/20 [address] [facility] [address] [place] [address] documented as of this encounter
--- OUTSIDE RECORDS SUMMARY | 2022-05-22 15:17 | XMS_ITS | Encounter Summary ---
:1980 Author Organization [facility] [place] [address] Care Team Providers Name Role Phone Syed Leong MD Primary Care Provider Encounter Details Date Type Department Care Team Description 04/19/2020 Telephone [place] [facility] [place] [address] Social History Tobacco Use Types Packs/Day Years Used Date Former Smoker Smokeless Tobacco: Never Used Comments: quit a few years ago Alcohol Use Standard Drinks/Week Comments Not Currently 0 (1 standard drink = 0.6 oz pure alcoho l) Sex Assigned at Date Recorded Not on file documented as of this encounter Miscellaneous Notes Telephone Encounter - Delia Geronimo - 04/22/2020 9:38 AM EDT I called Flavio after speaking with both the residents and the ED's in clinic. I will see Flavio landry on 04/24 at 0900 with a plan to have a resident present given the difficulties Flavio had withhis initial suture removal. In the meantime I advised both Flavio and Joanie to have him try to relaxand decrease his anxiety about his upcoming suture removal. I told Joanie that the area is likely to be much more healed than it was on Wednesday which will mean it will be easier and hopefully less painful to remove his sutures. Telephone Encounter - Jelly Barr - 04/22/2020 8:56 AM EDT Joanie calling back to let us know Flavio had verced (?spelling) for his MRI that worked well. Please call with appointment date and time once we know how to proceed with scheduling. Telephone Encounter - Delia Geronimo - 04/19/2020 4:22 PM EDT I called Joanie and told her that I would need to discuss this with our provider in clinic as I am not sure how to proceed. She reports Flavio is not going to be able to tolerate a suture removal w/o something for anxiety given he was very close to passing out today. She is going to call his local ERto see what they gave him during an MRI which he tolerated. Telephone Encounter - Jelly Barr - 04/19/2020 4:08 PM EDT Joanie calling back local hospital not comfortable removing the sutures he needs to come to [place], he can not have valium it makes him more anxious. Please advise how to schedule suture removal. [phone] Jelly Foster Telephone Encounter - Delia Geronimo - 04/19/2020 11:40 AM EDT I attempted to contact Joanie to discuss the call she placed to our office. She should have a copy ofWalcott's d/c summary which has a list of all his new and continued medications, as well as allergies. I did send a [facility] message with this information in it. Telephone Encounter - Jyotsna Guillen - 04/19/2020 11:33 AM EDT Joanie requests list of all medications be uploaded to [facility], as patient has had reactions to some sedation, and she would like to ensure the sedation given at [facility] does not cause a negative reaction Telephone Encounter - Delia Geronimo - 04/19/2020 10:39 AM EDT I called Joanie and EDGAR asking her to call us back. When she calls please let her know: 1) I would wait until at leat 04/22 to have the sutures removed, it is a bit too early to have this done. 2) If [facility] is willing to give him sedation so they can remove the sutures that would be acceptable with us given it sounds as though he is unable to safely have them removed in the clinic setting. Telephone Encounter - Jelly Barr - 04/19/2020 10:22 AM EDT Caller: Family member If not the patient: Name of caller: Joanie Relationship to patient: spouse Personal Rep on file?: Best time to reach caller: Anytime not urgent Best number to reach caller: [phone] Reason for call: Pt went to have sutures removed today and they were only able to remove one suture as he passed out. (already called ENT) wondering if they could go locally to [facility] to have sutures removed with sedation , patient can not have valium any recommendations on what to do, 21 sutures left to be taken out Recent Surgery?: Yes, Reynaldo & Anitha If before 4:00 pm: Inform caller that the typical expectation for a call back is within 1-2 hours. If after 4:00 pm: Inform caller that if the nurse does not call back by the end of the day, they will be called in the AM of the next business day. documented in this encounter Plan of Treatment Not on filedocumented as of this encounter Visit Diagnoses Not on filedocumented in this encounter Care Teams Core Shaper Sides Relationship Specialty Start Date End Date Syed Leong MD PCP - General Family Medicine 02/28/20 08/04/20 [address] [place] [id number] documented as of this encounter
--- OUTSIDE RECORDS SUMMARY | 2022-05-22 15:17 | XMS_ITS | Encounter Summary ---
:1980 Author Organization [facility] [place] [address] Care Team Providers Name Role Phone Syed Leong MD Primary Care Provider Encounter Details Date Type Department Care Team Description 04/04/2020 Telephone [facility] [place] [address] Social History Tobacco Use Types Packs/Day Years Used Date Former Smoker Smokeless Tobacco: Never Used Comments: quit a few years ago Sex Assigned at Date Recorded Not on file documented as of this encounter Plan of Treatment Not on filedocumented as of this encounter Visit Diagnoses Not on filedocumented in this encounter Care Teams [employer] Interpreter Relationship Specialty Start Date End Date Syed Leong MD PCP - General Family Medicine 02/28/20 08/04/20 [address] [place] [id number] documented as of this encounter
--- OUTSIDE RECORDS SUMMARY | 2022-05-22 15:17 | XMS_ITS | Encounter Summary ---
:1980 [place] [address] Care Team Providers Name Role Phone Syed [...] Expiration Date Visits Requ ested Visits Authorized [id number] 1 1 Encounter Details Date Type Department Care Team Description 04/11/2020 - Hospital Encounter Neuro Critical Care ReynaldoRachelTiki Vestibular 04/13/2020 Unit - [address] Iesha Liao MD schwannoma [facility] [place] [id number] [phone] Social History Tobacco Use Types Packs/Day Years Used Date Former Smoker Smokeless Tobacco: Never Used Comments: quit a few years ago Alcohol Use Standard Drinks/Week Comments Not Currently 0 (1 standard drink = 0.6 oz pure alcoho l) Sex Assigned at Date Recorded Not on file documented as of this encounter Last Filed Vital Signs Vital Sign Reading Time Taken Comments Blood Pressure 138/89 04/13/2020 5:25 PM EDT Pulse 85 04/13/2020 12:00 PM EDT Temperature 36.7 ??C (98.1 ??F) 04/13/2020 5:25 PM EDT Respiratory Rate 14 04/13/2020 2:00 AM EDT Oxygen Saturation 99% 04/13/2020 5:25 PM EDT Inhaled Oxygen Concentration - - Weight - - Height - - Body Mass Index - - documented in this encounter Discharge Summaries Lizzie Singh MD - 04/13/2020 3:06 PM EDT Patient Name: Flavio Hamm Patient Age: 39 y.o. Admit date: 04/11/2020 Discharge Date and Time: 04/13/2020 Attending Physician: Tiki Jacobs MD Discharging Provider: Lizzie Singh MD Discharging Service: NEUROSURGERY Operations/Major Procedures: 1) Left middle fossa craniotomy for tumor resection; combination with ENT (Dr. Welsh) Tiki Jacobs MD - 04/11/20 Active Hospital Problems: Active Hospital Problems Diagnosis ??? Vestibular schwannoma Resolved Hospital Problems No resolved problems to display. Active Non Hospital Problems: There are no active non-hospital problems to display for this patient. History of Presentation: The following information was obtained from Dr. Welsh H&P dated 12/15/19: HPI: h/o unilateral tinnitus and hearing loss last year. Originally treated for Lyme dz. Also has had imbalance / disequilibrium constant with episodes of waviness that sounds like low intensity vertigo, No N/V/. Still able ot work but difficult. Also has had visual problems in left eye. Seen byophthalmology at [facility] with Dx of Central serous retinopathy. He occasionally has episodes of left eye jumping around. Has for years had occasional twitching of eyes with stress and continues to noticethat L>R lately. Had MRI in Oct with Dx of Left IAC acoustic neuroma. 1 -2 weeks later he had an episode of paresthesia of his lower lip (bilateral), bilateral UE paresthesias, headache and increased size of blotch in his left eye. This prompted a repeat MRI which looks similar to the first. He also has visual halos and scintilating scotoms, but he is less certain abotu whether these are presentin both eyes. I have discussed the diagnosis of acoustic neuroma with the patient, including a diagram of the anatomy and have reviewed the MRI scans with them personally. The options for management were reviewed including observation with serial MRI scans, stereotactic radiation therapy, and skull base surgical removal. The risks and complications of all treatment options were discussed including, but not limitedto hearing loss, the effect on vestibular function, and facial paralysis.The advantages and disadvantages of radiation therapy with regard to hearing, tumor regrowth and malignant regeneration were reviewed as well as the risks inherent to surgical treatment such as infection, bleeding, or intracranial complications. The patient expressed an understanding of these options and literature was provided for them to review. ?? Although the tinnitus, hearing loss, disequilibrium (and possibly the left facial twitch in the occular branch) are definitely related to the tumor, the facial (bilateral) and UE paraesthesias and visual issues are clearly not related to the tumor. The headaches are also unlikely related tot he tumor.I suspect that he may have new onset of migraines (possibly related to the additional stress of the brain tumor Dx). He apparently has an appointment scheduled with Neurology. I would like to review the notes form [facility] Ophthalmology as well. It is interesting that many of his occular symptoms are unilateral (left eye) which would be consistent with the retinal pathology, but others such as the halos and scintillating scotomas may be episodic and bilateral (again, c/w migraines). ?? As for management of his tumor, he is interested primarily in surgery, but prefers to wait until after his busy season is over in July. I think this is fine as this is a relatively small, slow growing benign tumor. We will plan to f/u in May with repeat MRI and AE and have a final discussion about hearing preservation (Middle Fossa) vs. a non preservation approach (rertrosigmoid or translab). Fam presented electively 04/11/20 for surgery. Hospital Course: Flavio Hamm underwent the aforementioned procedure on 04/11/2020. He tolerated the procedure welland there were no reported intraoperative complications. A lumbar drain was placed intraoperatively for CSF diversion and removed on POD1. Immediately post-op he was noted to have L facial weakness, but was able to close his eye. He was initially on steroids, but these were stopped due to patient stating they made him anxious and agitated. However, on POD2, his facial weakness became worse and he wasunable to close the left eye. ENT recommended he be placed back on steroids and that he be given eyedrops and ointment. Fam remained hemodynamically stable during the hospitalization. Patient was ambulating without assistance, voiding spontaneously, and his pain was well controlled on oral medications. He will be discharged on opiate pain medications. Alternatives were discussed and consent was signed. Important Studies and Lab Data: Labs: Lab Results Component Value Date/Time WBC 15.0 (H) 04/13/2020 12:00 AM HGB 12.5 (L) 04/13/2020 12:00 AM HCT 36.6 (L) 04/13/2020 12:00 AM PLATELET 177 04/13/2020 12:00 AM NA 140 04/13/2020 12:00 AM K 4.1 04/13/2020 12:00 AM CL 101 04/13/2020 12:00 AM CO2 26 04/13/2020 12:00 AM BUN 10 04/13/2020 12:00 AM CREATININE 0.81 04/13/2020 12:00 AM Studies: Ct Head Wo Contrast (generic) Result Date: 04/12/2020 EXAMINATION: CT HEAD WO CONTRAST (GENERIC) CLINICAL HISTORY: Headache, intracranial hemorrhage suspected s/p resection of acoustic neuroma with lumbar drain in place, severe SINCLAIR, concern for ?EDH/SDH TECHNIQUE: CT head performed without intravenous contrast administration. COMPARISON: MRI head performed on March 28, 2020 FINDINGS: There are interval post-surgical changes of left IAC neuroma resection via left craniotomy with associated fat packing.. Minimal hyper-attenuation blood products demonstrated marginally around the resection cavity. There is mild scalp swelling overlying the craniotomy site and soft tissue swelling and air and fluid projecting in the left livestock buyer space.. Small volume pneumocephalus which is within the realm of expectation given recent surgery. No evidence of new mass oracute infarct. The ventricular size is normal. There is fluid attenuation in the left middle ear cavity and mastoids which is new compared to prior exam. Minimal blood products are demonstrated marginally around the resection cavity which is within the realm of expectation given recent surgery. I have personally reviewed the image(s) and the resident's interpretation and agree with the findings, Kobe Wiley MD at 04/12/2020 12:18 PM Thank you for letting us participate in the care of this patient. For questions regarding this report, please contact the number below. 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 COMPARISON: None FINDINGS: 8 x 15 mm mass projecting within the left IAC extending slightly into the left CP angle cistern with homogeneous enhancement containingcystic areas most compatible with a schwannoma unchanged from the prior exam. No new mass effect. Noacute infarction. Ventricles are normal. Unchanged left IAC mass. Thank you for letting us participate in the care of this patient. For questions regarding this report, please contact the number below. Electronically signed by: [facility]aken[facility] TijerinaH[facility] ([phone]), at 03/29/2020 8:45 AM Mri Shoulder Wo Contrast Right (generic) Result Date: 03/29/2020 EXAMINATION: MRI SHOULDER WO CONTRAST RIGHT (GENERIC) CLINICAL HISTORY: Shoulder trauma, rotator cuff tear suspected-x ray neg TECHNIQUE: Noncontrast MRI of the right shoulder was performed. COMPARISON: Shoulder radiographs 02/22/2020 FINDINGS: Rotator cuff Supraspinatus: Normal Infraspinatus: Low-grade interstitial tear of the anterior infraspinatus at its footprint. Mild edema within the infraspinatus muscle. Subscapularis: There is a 2.7 x 1.2 x 0.5 cm ganglion centered at the superior subscapularis tendon. Teres minor: Normal Muscle bulk: Normal Labrum: Normal Long head of the biceps: Normal Bones: No fracture or bone marrow edema. No bony Bankart or Hill-Sachs. Glenohumeral joint: no joint effusion, normal cartilage bulk Acromioclavicular joint: Normal acromioclavicular joint. There is an os acromiale without edema. Subacromial/subdeltoid bursal fluid: None. Mild edema within the posterior de ltoid. Low-grade interstitial tear of the anterior infraspinatus at its footprint. Ganglion within the superior subscapularis tendon, likely due to a prior tear. Grade 1 strain of the infraspinatus and posterior deltoid muscles. Os acromiale. Thank you for letting us participate in the care of this patient. For questions regarding this report, please contact the number below. Electronically signed by: Darius Small [facility] ([phone]), at 03/29/2020 11:32 AM Pending Studies and Lab Data: No current labs Discharge Condition: Stable Discharge to: Home Future Appointments and Orders Future Appointments and Orders Future Appointments Provider Department Dept Phone 05/03/2020 1:00 PM Rosa Welsh MD Otolaryngology at [facility] Arrive at: [employer] Area [phone] Discharge Medications: Your Medications New Medications Dose Details carboxymethylcellulose 0.5 % Dpet Commonly known as: REFRESH PLUS Place 1 drop into the left eye 4 times daily. 1 drop Quantity: 30 each Refills: 3 HYDROmorphone 2 mg Tab Commonly known as: Dilaudid Take 1 tablet by mouth every 4 hours as needed for Pain. 2 mg Quantity: 20 tablet Refills: 0 melatonin 3 mg Tab Take 2 tablets by mouth nightly. 6 mg Quantity: 30 tablet Refills: 3 ondansetron 4 mg Tab Commonly known as: Zofran Take 1-2 tablets by mouth every 8 hours as needed. 4-8 mg Quantity: 20 tablet Refills: 0 predniSONE 10 mg Tab Commonly known as: Deltasone Take 1 tablet by mouth daily. Take 3 tabs/day for 7 days, 2 tabs/day for 2 days, 1 tab/day for 2 days, 1/2 tab/day for 2 days 10 mg Quantity: 49 tablet Refills: [address] 1 each into the left eye once for 1 dose. Apply when you go to sleep at night. Generic drug: white petrolatum-mineral oil 1 each Quantity: 2 Tube Refills: 3 senna-docusate 8.6-50 mg Tab Commonly known as: Pericolace Take 2 tablets by mouth 2 times daily. 2 tablet Quantity: 60 tablet Refills: 11 Continued medications, unchanged Dose Details acetaminophen 325 mg Tab Commonly known as: Tylenol Take 2 tablets by mouth every 4 hours as needed. 650 mg Quantity: 30 tablet Refills: 1 eplerenone 25 mg Tab Commonly known as: Inspra Take 25 mg by mouth 2 times daily. 25 mg Refills: 0 ibuprofen 600 mg Tab Commonly known as: Advil;Motrin Take 600 mg by mouth every 6 hours as needed. 600 mg Refills: 0 omeprazole 40 mg Cpdr Commonly known as: PriLOSEC Take 40 mg by mouth daily. 40 mg Refills: 0 Updated Allergies/ADRs: Allergies Allergen Reactions ??? Amoxicillin-Pot Clavulanate Angioedema ??? Bupropion ??? Naproxen Other (See Comments) Throat swelled 08/18 ??? Sulfa (Sulfonamide Antibiotics) Follow-up Recommendations for Providers: Please have the patient follow-up with Neurosurgery clinic in 4-6 weeks. Incision: Follow-up for suture/staple removal in 10-14 days with Primary Care Provider or with the Neurosurgery MEDIA PROFESSIONAL/RN. Imaging: No follow-up imaging needed. Outpatient referrals: Opthalmology Instructions Given to Patient at Discharge: Patient Instructions CRANIOTOMY FOR TUMOR DISCHARGE INSTRUCTIONS PRESCRIPTION INSTRUCTIONS: Please see the medication reconciliation list on this discharge summary for a current list of your medications. Stop the use of blood thinning medications until instructed otherwise by your surgical team. This includes medications known as antiplatelet, anticoagulant, and non-steroidal anti-inflammatory (NSAIDs)drugs. Common vvfq-vie-xexhdsw medications which should be avoided include Aspirin, ibuprofen, and naproxenamong others. These medications are sometimes combined with other drugs or are sold under a trade name. Common prescription medications which should be avoided include Plavix (clopidogrel) and Coumadin(warfarin) among others. The following medications are commonly prescribed after surgery. An [x] indicates that these medications have been prescribed for you. [x] Steroids - anti-inflammatory: Prednisone Steroids are commonly prescribed after surgery to reduce swelling in the brain. This medication is often gradually reduced until discontinued or to a lower level to be assessed again at follow up. If you experience any symptoms during the tapering schedule, please call the Neurosurgery or ENT office. If you have questions about this taper please call our offices or ask your pharmacist. [x] PPIs or H2 blockers - Gastrointestinal prophylaxis: medications such Protonix or Pepcid (famotidine) PPIs or H2 blockers are commonly prescribed after surgery to protect your stomach while you are taking steroids. Once you have finished taking the steroids you may stop this medication. [x] Opioids - Pain relief: Oxycodone 5mg or Dilaudid 2mg every 4-6 hours as needed for acute pain Opioids are commonly prescribed after surgery for severe pain. DO NOT use alcohol, drive, or operateheavy machinery while taking these medications. These medications may cause constipation. [x] Stool softeners - Constipation relief: medications such as docusate or senakot Stool softeners are commonly used after surgery to help make stools easier to pass. These medications can be obtained znuf-lki-dqjpvlp and their use is recommended on an as needed basis for hard or difficult stools. They should be discontinued for loose stools and diarrhea. WHEN TO SEEK MEDICAL CARE: Signs or symptoms of an infection - Fever over 101F - Redness, swelling, or increasing pain around your incision - Drainage of pus, blood, or clear fluid from your incision New neurologic symptoms - Worsening headaches not controlled with your pain medication - Drowsiness, confusion, and lethargy - Visual changes - Difficulty speaking or slurred speech - Facial droop - New weakness or sensory changes - New unsteadiness when walking - Seizures Constipation not relieved by diet and over the counter stool softeners and laxatives Nausea/vomiting (upset stomach) not controlled with anti-nausea medication Symptoms of a deep venous thrombosis (DVT) or pulmonary embolism (PE): - Swelling/warmth/redness of the leg - Pain in the leg, which can be worse with standing or walking - Chest pain or shortness of breath To help prevent a DVT: - Exercise regularly. Walking, at least several times daily, is helpful. - Ankle pump exercises (like pressing and releasing the gas pedal) should be done regularly. - Keep hydrated with water or other clear liquids (coffee/tea/cola can dehydrate you). - Avoid alcohol and crossing your legs. - Remember not to sit or lay in bed, while awake, for prolonged amounts of time. WOUND CARE: - Keep incisional site clean and dry. You can remove your dressing 2 days after surgery, if not removed prior to discharge. - You may shower and shampoo incisional site, per your usual routine, 4 days after surgery. DIET: - You may resume your usual diet. - A well-balanced diet is recommended for wound healing. - Prune juice or prunes can be added to your diet to assist with any constipation. ACTIVITY: - You may increase your activities as tolerated. - Restrict strenuous activity (such as running, jumping, jogging, shoveling, etc.) until cleared by your surgical team. DRIVING: - Do not drive while taking narcotic pain medication. [] You may return to driving 2 weeks after surgery. [x] Do NOT drive until cleared by Neurosurgery. [] You have had a seizure and driving is prohibited (see state regulations). Speak to your doctor for further recommendations. FOLLOW UP PLAN: Incision: [] Your sutures are absorbable and do not need to be removed. [x] Please follow up for suture/staple removal in 10-14 days with your Primary Care Provider or withthe Neurosurgery MEDIA PROFESSIONAL/RN. Appointments: [x] Please follow up in 4-6 weeks via a TeleHealth visit with Dr. Jacobs. Please call the Neurosurgery Office at [phone] if you do not receive a scheduled appointment within two weeks. [x] Please follow up with ENT in 4-[address] Welsh - you will be contacted to establish this visit [x] Please follow up with in clinic in 4-[address] Vaughan. Your follow-up appointment will be with: [] Dr. Watts [] Dr. Morton [] Dr. Lomas [] Dr. Nathan [] Dr. Guevara [x] Dr. Jacobs [] Dr. Oliveira [] Dr. Kumar [] Associate Provider Imaging: [x] No Imaging required at follow-up. [] Head CT [] MRI Brain HOW TO REACH NEUROSURGERY Office Hours: Wednesday through Wednesday, 8am-5pm. Call . On weekends or after office hours: Call [phone] and ask the fire engine pump operator to page the NeurosurgeryResident neurosurgical nurse practitioner. IMPORTANT PHONE NUMBERS: Outpatient Nurse (Kellie Cardona) Inpatient Nurses Neurosurgical Resident On-Call (after 5pm or before 8am) Neurosurgery offices (Wednesday through Wednesday between 8am-5pm): Adult Neurosurgery Dr. Jarek Oliveira Pediatric Neurosurgery Dr. Nitish Guevara Associate Providers Delia Perez, Nurse Practitioner Nitish Calloway, Physician Hogshead Builder Jovan Xiong, Nurse Practitioner Anna Crenshaw, Nurse Practitioner Tameka Weems, Nurse Practitioner Na Pabon, Nurse Practitioner * Your surgeon may not be call worker, so be ready to tell about yourself and your surgery when you call, especially after hours or on the weekend. Lizzie Singh MD 04/13/2020 4:11 PM [facility] Neurosurgery documented in this encounter Discharge Instructions Patient InstructionsLizzie Singh MD - 04/13/2020 3:50 PM EDT CRANIOTOMY FOR TUMOR DISCHARGE INSTRUCTIONS PRESCRIPTION INSTRUCTIONS: Please see the medication reconciliation list on this discharge summary for a current list of your medications. Stop the use of blood thinning medications until instructed otherwise by your surgical team. This includes medications known as antiplatelet, anticoagulant, and non-steroidal anti-inflammatory (NSAIDs)drugs. Common mwzp-uux-ffndlfb medications which should be avoided include Aspirin, ibuprofen, and naproxenamong others. These medications are sometimes combined with other drugs or are sold under a trade name. Common prescription medications which should be avoided include Plavix (clopidogrel) and Coumadin(warfarin) among others. The following medications are commonly prescribed after surgery. An [x] indicates that these medications have been prescribed for you. [x] Steroids - anti-inflammatory: Prednisone Steroids are commonly prescribed after surgery to reduce swelling in the brain. This medication is often gradually reduced until discontinued or to a lower level to be assessed again at follow up. If you experience any symptoms during the tapering schedule, please call the Neurosurgery or ENT office. If you have questions about this taper please call our offices or ask your pharmacist. [x] PPIs or H2 blockers - Gastrointestinal prophylaxis: medications such Protonix or Pepcid (famotidine) PPIs or H2 blockers are commonly prescribed after surgery to protect your stomach while you are taking steroids. Once you have finished taking the steroids you may stop this medication. [x] Opioids - Pain relief: Oxycodone 5mg or Dilaudid 2mg every 4-6 hours as needed for acute pain Opioids are commonly prescribed after surgery for severe pain. DO NOT use alcohol, drive, or operateheavy machinery while taking these medications. These medications may cause constipation. [x] Stool softeners - Constipation relief: medications such as docusate or senakot Stool softeners are commonly used after surgery to help make stools easier to pass. These medications can be obtained bqvi-hfa-qqxmuds and their use is recommended on an as needed basis for hard or difficult stools. They should be discontinued for loose stools and diarrhea. WHEN TO SEEK MEDICAL CARE: Signs or symptoms of an infection - Fever over 101F - Redness, swelling, or increasing pain around your incision - Drainage of pus, blood, or clear fluid from your incision New neurologic symptoms - Worsening headaches not controlled with your pain medication - Drowsiness, confusion, and lethargy - Visual changes - Difficulty speaking or slurred speech - Facial droop - New weakness or sensory changes - New unsteadiness when walking - Seizures Constipation not relieved by diet and over the counter stool softeners and laxatives Nausea/vomiting (upset stomach) not controlled with anti-nausea medication Symptoms of a deep venous thrombosis (DVT) or pulmonary embolism (PE): - Swelling/warmth/redness of the leg - Pain in the leg, which can be worse with standing or walking - Chest pain or shortness of breath To help prevent a DVT: - Exercise regularly. Walking, at least several times daily, is helpful. - Ankle pump exercises (like pressing and releasing the gas pedal) should be done regularly. - Keep hydrated with water or other clear liquids (coffee/tea/cola can dehydrate you). - Avoid alcohol and crossing your legs. - Remember not to sit or lay in bed, while awake, for prolonged amounts of time. WOUND CARE: - Keep incisional site clean and dry. You can remove your dressing 2 days after surgery, if not removed prior to discharge. - You may shower and shampoo incisional site, per your usual routine, 4 days after surgery. DIET: - You may resume your usual diet. - A well-balanced diet is recommended for wound healing. - Prune juice or prunes can be added to your diet to assist with any constipation. ACTIVITY: - You may increase your activities as tolerated. - Restrict strenuous activity (such as running, jumping, jogging, shoveling, etc.) until cleared by your surgical team. DRIVING: - Do not drive while taking narcotic pain medication. [] You may return to driving 2 weeks after surgery. [x] Do NOT drive until cleared by Neurosurgery. [] You have had a seizure and driving is prohibited (see state regulations). Speak to your doctor for further recommendations. FOLLOW UP PLAN: Incision: [] Your sutures are absorbable and do not need to be removed. [x] Please follow up for suture/staple removal in 10-14 days with your Primary Care Provider or withthe Neurosurgery MEDIA PROFESSIONAL/RN. Appointments: [x] Please follow up in 4-6 weeks via a TeleHealth visit with Dr. Jacobs. Please call the Neurosurgery Office at [phone] if you do not receive a scheduled appointment within two weeks. [x] Please follow up with ENT in 4-[address] Welsh - you will be contacted to establish this visit [x] Please follow up with in clinic in 4-[address] Vaughan. Your follow-up appointment will be with: [] Dr. Watts [] Dr. Morton [] Dr. Lomas [] Dr. Nathan [] Dr. Guevara [x] Dr. Jacobs [] Dr. Oliveira [] Dr. Kumar [] Associate Provider Imaging: [x] No Imaging required at follow-up. [] Head CT [] MRI Brain documented in this encounter Medications at Time of Discharge Medication Sig Dispensed Refills Start Date End Date ibuprofen (Advil;Motrin) 600 Take 600 mg by 0 mg Tablet mouth every 6 hours as needed. omeprazole (PriLOSEC) 40 mg Take 40 mg by 0 10/06 Capsule, Delayed Release(E.C.) mouth daily as needed. amitriptyline (Elavil) 25 mg Take 75 mg by 0 /12/201911/29/2020 Tablet mouth as needed. white petrolatum-mineral oil Place 1 each 2 Tube 3 04/1304/13/2020 (Refresh P.M.) into the left eye once for 1 dose. Apply when you go to sleep at night. carboxymethylcellulose Place 1 drop 30 each 3 04/13/2020 03/19/2021 (REFRESH PLUS) 0.5 % into the left Dropperette eye 4 times daily. predniSONE (Deltasone) 10 mg Take 1 tablet 49 tablet 0 09/201904/25/2020 Tablet by mouth daily. Take 3 tabs/day for 7 days, 2 tabs/day for 2 days, 1 tab/day for 2 days, 1/2 tab/day for 2 days acetaminophen (Tylenol) 325 mg Take 2 tablets 30 tablet 1 0 04/13/2020 05/12/2021 Tablet by mouth every 4 hours as needed. melatonin 3 mg Tablet Take 2 tablets 30 tablet 3 04/13/2020 03/19/2021 by mouth nightly. ondansetron (Zofran) 4 mg Take 1-2 20 tablet 0 04/13/2020 04/20/2020 Tablet tablets by mouth every 8 hours as needed. senna-docusate (Pericolace) Take 2 tablets 60 tablet 11 0809/201903/19/2021 8.6-50 mg Tablet by mouth 2 times daily. HYDROmorphone (Dilaudid) 2 mg Take 1 tablet 20 tablet 0 09/201904/17/2020 Tablet by mouth every 4 hours as needed for Pain. eplerenone (Inspra) 25 mg Take 25 mg by 0 03/19/2021 Tablet mouth 2 times daily. documented as of this encounter Progress Notes Mikael Peralta Jr., MD - 04/13/2020 10:35 AM EDT OTOLARYNGOLOGY - HEAD & NECK SURGERY DAILY PROGRESS NOTE Name: Flavio Hamm Age/Sex: 39 y.o. male Attending: Tiki Jacobs MD Hospital Day: 3 2 Days Post-Op Patient ID/Reason for Admission Flavio Hamm presented for left acoustic neuroma resection via middle fossa approach. Patient found to have a left IAC acoustic neuroma on MRI in October after presenting with symptoms of imbalance/disequilibrium, hearing loss and tinnitus. Interval History Doing much better this AM and really wants to go home. Had a dose of steroids yesterday and states he did not have panic attacks or any other reaction. Vitals Last value 24hr Range Temperature: 36.9 ??C (98.4 ??F) Temp: [36.8 ??C (98.2 ??F)-37.3 ??C (99.1 ??F)] Heart Rate: 66 Heart Rate: [63-108] Blood Pressure: 132/80 BP: (124-135)/(80-85) Respiratory Rate: 14 Resp: [9-21] SpO2: 98 % SpO2: [96 %-100 %] Intake & Output Intake/Output Summary (Last 24 hours) at 04/13/2020 1035 Last data filed at 04/13/2020 0900 Gross per 24 hour Intake 1184 ml Output 2225 ml Net -1041 ml Physical Exam General: NAD, non-ill appearing, circumferential head dressing in place. Face: Symmetric without dysmorphic features, HB-IV Eyes: EOMI, conjunctiva healthy, mild nystagmus to right. Ears: Auricles symmetric, no lesions Nose: Patent nares, grossly normal appearance Oral Cavity/Pharynx: Mucosa is pink, oropharynx symmetric, asymmetric smile. Neck: Soft, trachea midline Chest: Non-labored breathing, regular rate Abdomen: Soft, non-tender Neuro: Alert & oriented, following commands, moving extremities x 4 Labs Recent Labs 04/13/20 0000 04/12/20 0144 WBC 15.0* 17.6* HGB 12.5* 12.6* HCT 36.6* 37.0* PLATELET 177 207 NA 140 140 K 4.1 4.1 CL 101 105 CO2 26 22 BUN 10 14 CREATININE 0.81 0.85 GLUCOSE 114 [address]UM 9[address] head wo contrast: IMPRESSION Minimal blood products are demonstrated marginally around the resection cavity which is within the realm of expectation given recent surgery. ??. ASSESSMENT & PLAN Flavio Hamm is a 39 y.o. male s/p left acoustic neuroma resection via middle fossa approach, 2 Days Post-Op. Surgical/Head&Neck: - Continued pain management. - Moisture chamber given to pt this AM as he is no longer able to close his eye. He was also writtenfor eye drops and eye ointment to be applied at night. He will go home on this (ordered) - Will start him on 60mg Prednisone with subsequent short taper today at discharge due to increased facial weakness. If he has decrease in visual acuity or a manic/panic attack episode the prednisone should either be stopped or a taper should be started earlier depending on when this happens and symptom severity -Upon discharge, please contact Mai ([phone]) to schedule a follow up appointment with Dr. Vaughan in 4-6 weeks and please fax a copy of the discharge summary to [phone] - OK to discharge from ENT standpoint Mikael Peralta Jr, MD, PGY5 04/13/20 10:35 AM ENT Team Pager: [phone] Nadir Rodney MD - 04/13/2020 10:08 AM EDT NEUROSURGERY PROGRESS NOTE ID: Flavio Hamm is a 39 y.o. male with left vestibular schwannoma HD# 2 POD # 2 Days Post-Op left middle fossa craniotomy for tumor resection with ENT (Dr. Welsh) INTERVAL HX/ROS: -LD removed yesterday -Transferred to NSC[facility] -Steroids stopped due to patient request against steroids (they make him extremely anxious/agitated) MEDICATIONS: Scheduled Meds: ??? melatonin 6 mg Oral Nightly ??? eplerenone 25 mg Oral BID ??? senna-docusate 2 tablet Oral BID ??? pantoprazole EC 40 mg Oral Daily Or ??? pantoprazole 40 mg Intravenous Daily ??? carboxymethylcellulose 1 drop Left Eye 4 Times Daily ??? scopolamine 1 patch Transdermal Q72H And ??? Patch Verification 1 patch Transdermal BID And ??? [START ON 04/14/2020] scopolamine 1 patch Transdermal Q72H Continuous Infusions: PRN Meds: HYDROmorphone, acetaminophen, polyethylene glycoL, ondansetron OR ondansetron, metoclopramide, labetalol, hydrALAZINE EXAM: Vitals: Temp: [36.8 ??C (98.2 ??F)-37.3 ??C (99.1 ??F)] Heart Rate: [63-108] Resp: [9-21] BP: (124-135)/(80-85) SpO2: [96 %-100 %] Heart Rate from SpO2: [62 bpm-90 bpm] BMI: I/O: I/O last 3 completed shifts: In: 2540 [P.O.:880; I.V.:1660] Out: 4000 [Urine:3900; Emesis/NG output:100] Drains: Lumbar drain removed 04/12 GEN:NAD NEURO: A&Ox3 Speech fluent and appropriate. PERRL. EOMI. L HB 4 (not able to fully close L eye) Left lower face with no movement Asymmetric smile Tongue midline MOTOR: 5/5x4 in all extremities No pronator drift Dressings dry and intact LABS: Recent Labs 04/13/20 0000 04/12/20 0144 WBC 15.0* 17.6* HGB 12.5* 12.6* PLATELET 177 207 Recent Labs 04/13/20 0000 04/12/20 0144 NA 140 140 K 4.1 4.1 CL 101 105 CO2 26 22 BUN 10 14 CREATININE 0.81 0.85 No results for input(s): PT, INR in the last 72 hours. IMAGING: None new A/P: Flavio Hamm is a 39 y.o. male with left vestibular schwannoma s/p crani for tumor resectionon 04/11/2020. Continues with expected post op left facial weakness (HB 3). Neuro stable. -Neuro checks: Q4H -Goal SBP <160 -Diet: Regular diet. -DVT prophylaxis: SCDs. Hold anticoagulation and antiplatelet -On discharge patient's Skull Grinder Dr. Conley is requesting copy of discharge note and a 4-6 week follow-up appointment -Eyes drops and eye patch per ENT -ENT recs trying to resume steroids one more time -Plan for discharge home today -DISPOSITION: 5W -FULL CODE PLEASE PAGE [phone] WITH QUESTIONS Active Hospital Problems Diagnosis ??? Vestibular schwannoma Resolved Hospital Problems No resolved problems to display. There are no active non-hospital problems to display for this patient. Nadir Rodney MD 04/13/2020 Carol Mensah RN - 04/13/2020 5:46 AM EDT Pt and verbalized understanding of d/c, rx, and follow up instructions. Written instructions provided pt's reported obtaining meds from pharmacy prior to d/c. Pt assisted to pov via wc deniespain/sob/discomfort at this time. Winifred Gomes PA - 04/12/2020 5:29 PM EDT Neurosurgery Procedure Note - Lumbar drain removed at bedside without issue. The bush tip of the lumbar drain catheter was visualized on removal. The drain site was closed with a single absorbable suture. Local anesthetic was administered prior to the procedure. - The patient tolerated the procedure well and there were no issues. - All drain related orders have been discontinued. Please page [phone] with questions regarding this patient. Winifred Gomes PA-C Daksha Humphreys - 04/12/2020 2:23 PM EDT Nutrition Services Note - Low Nutrition Acuity Flavio Hamm is a 39 y.o. male Reason for intervention: ICU admit Nutrition Plan: Continue current diet. Multivitamin with minerals. Added Ensure with ice cream 3x/day. Pt states that he regularly consumes protein shakes mixed with yogurt and almond milk at home. Agreeable to mixing with ice cream while inpatient. Will provide snackof montserratian yogurt in between meals. Monitor weight. Encourage good oral intake. Support and encouragement provided. Pt was resting at time of visit. Pt c/o severe nausea with vomiting and decreased appetite. Pt agreeable to Ensure and montserratian yogurt to promote PO intake. Encouraged pt to contact Nutrition Services if any questions/concerns arise before next f/u visit. Nutrition Services will continue to monitor. Active Orders Diet Regular diet Frequency: Effective Now Number of Occurrences: Until Specified Admit Weight: Estimated body mass index is 25.92 kg/m?? as calculated from the following: Height as of 04/02/20: 172.7 cm (5' 8). Weight as of 04/02/20: 77.3 kg (170 lb 8 oz). 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 Pt reports no difficulties at time of visit. Nausea/Vomiting: significant nausea and vomiting Patient education / questions: all nutrition related questions answered at this time Nutrition services to follow weekly through hospital course unless consulted in the interim. Daksha Humphreys Pager: [phone] Nohemy Yang MD - 04/12/2020 11:34 AM EDT The ENT team was contacted by the patient's medical records auditor, Dr. Vaughan. Who is been treating thepatient for L central serous retinopathy. He asks that he be informed of any vision changes the patient experiences while inpatient. I assessed the patient this afternoon and he currently denies any changes to his vision. Upon discharge, please contact Mai ([phone]) to schedule a follow up appointment with Dr. Vaughan in 4-6 weeks and please fax a copy of the discharge summary to [phone]. Winifred Gomes PA - 04/12/2020 7:42 AM EDT NEUROSURGERY PROGRESS NOTE ID: Flavio Hamm is a 39 y.o. male with left vestibular schwannoma HD# 1 POD # 1 Day Post-Op left middle fossa craniotomy for tumor resection with ENT (Dr. Welsh) INTERVAL HX/ROS: - OR yesterday for craniotomy for tumor resection with ENT - Transferred to N[facility]U following procedure - OVN developed agitation. Discontinued dex. CT Head appropriate. - Lumbar drain remains clamped - SINCLAIR continues this AM MEDICATIONS: Scheduled Meds: ??? eplerenone 25 mg Oral BID ??? senna-docusate 2 tablet Oral BID ??? pantoprazole EC 40 mg Oral Daily Or ??? pantoprazole 40 mg Intravenous Daily ??? carboxymethylcellulose 1 drop Left Eye 4 Times Daily ??? acetaminophen 1,000 mg Intravenous Q6H TIFFANY ??? scopolamine 1 patch Transdermal Q72H And ??? Patch Verification 1 patch Transdermal BID And ??? [START ON 04/14/2020] scopolamine 1 patch Transdermal Q72H Continuous Infusions: PRN Meds: HYDROmorphone, HYDROmorphone, polyethylene glycoL, ondansetron OR ondansetron, metoclopramide, labetalol, hydrALAZINE EXAM: Vitals: Temp: [36.8 ??C (98.2 ??F)-37.5 ??C (99.5 ??F)] Heart Rate: [60-107] Resp: [9-25] BP: -- SpO2: [95 %-100 %] Heart Rate from SpO2: [59 bpm-106 bpm] BMI: I/O: I/O last 3 completed shifts: In: 3526 [I.V.:3526] Out: 3435 [Urine:3140; Emesis/NG output:250; Other:20; Blood:25] Drains: Lumbar drain: clamped GEN:NAD NEURO: A&Ox3 Speech fluent and appropriate. PERRL. EOMI. Closes eyes completely Left nasolabial fold flattening Asymmetric smile Tongue midline MOTOR: BEYER with equal strength to command No pronator drift Dressings dry and intact No leaking around lumbar drain LABS: Recent Labs 04/12/20 014 WBC 17.6* HGB 12.6* PLATELET 207 Recent Labs 04/12/20 014 NA 140 K 4.1 CL 105 CO2 22 BUN 14 CREATININE 0.85 No results for input(s): PT, INR in the last [address] hours. IMAGING: CT Head 04/11/2020 IMPRESSION Formal read pending A/P: Flavio Hamm is a 39 y.o. male with left vestibular schwannoma s/p crani for tumor resectionon 04/11/2020. Continues with expected post op left facial weakness (HB 3). -Neuro checks: Q4H -Imaging: Follow-up formal read CTH 04/11 -Goal SBP <160 -Will remove lumbar drain today. Will need to be flat x4 hours post removal. -Diet: Regular diet. -DVT prophylaxis: SCDs. Hold anticoagulation and antiplatelet -In discussion with ENT, Dex 4mg Q6H x 48H (to end 04/14) -On discharge patient's Skull Grinder Dr. Conley is requesting copy of discharge note and a 4-6 week follow-up appointment -DISPOSITION: 5W -FULL CODE PLEASE PAGE [phone] WITH QUESTIONS Active Hospital Problems Diagnosis ??? Vestibular schwannoma Resolved Hospital Problems No resolved problems to display. There are no active non-hospital problems to display for this patient. SUPRIYA Villasenor 04/12/2020 Nohemy Yang MD - 04/12/2020 7:21 AM EDT OTOLARYNGOLOGY - HEAD & NECK SURGERY DAILY PROGRESS NOTE Name: Flavio Hamm Age/Sex: 39 y.o. male Attending: Tiki Jacobs MD Hospital Day: 2 1 Day Post-Op Patient ID/Reason for Admission Flavio Hamm presented for left acoustic neuroma resection via middle fossa approach. Patient found to have a left IAC acoustic neuroma on MRI in October after presenting with symptoms of imbalance/disequilibrium, hearing loss and tinnitus. Interval History Had episodes of vomiting overnight. Pain control an issue. States that the steroids made him feel anxious and uncomfortable. Complains of headache this AM. Vitals Last value 24hr Range Temperature: 36.9 ??C (98.5 ??F) Temp: [36.8 ??C (98.2 ??F)-37.5 ??C (99.5 ??F)] Heart Rate: 74 Heart Rate: [60-107] Blood Pressure: (!) 140/96 BP: -- Respiratory Rate: 11 Resp: [9-25] SpO2: 99 % SpO2: [95 %-100 %] Intake & Output Intake/Output Summary (Last 24 hours) at 04/12/2020 0721 Last data filed at 04/12/2020 0500 Gross per 24 hour Intake 3526 ml Output 3435 ml Net 91 ml Physical Exam General: NAD, non-ill appearing, circumferential head dressing in place. Face: Symmetric without dysmorphic features, HB-III Eyes: EOMI, conjunctiva healthy, mild nystagmus to right. Ears: Auricles symmetric, no lesions Nose: Patent nares, grossly normal appearance Oral Cavity/Pharynx: Mucosa is pink, oropharynx symmetric, asymmetric smile. Neck: Soft, trachea midline Chest: Non-labored breathing, regular rate Abdomen: Soft, non-tender Neuro: Alert & oriented, following commands, moving extremities x 4 Labs Recent Labs 04/12/20 0144 WBC 17.6* HGB 12.6* HCT 37.0* PLATELET 207 NA 140 K 4.1 CL 105 CO2 22 BUN 14 CREATININE 0.85 GLUCOSE [address] head w contrast - pending. ASSESSMENT & PLAN Flavio Hamm is a 39 y.o. male s/p left acoustic neuroma resection via middle fossa approach, 1 Day Post-Op. Surgical/Head&Neck: - Continued pain management. - Moisture chamber and eye drops not necessary as patient is able to fully close his L eye. - Continue Decadron 4mg q6hrs for 2 days. - ENT will continue to follow. Nohemy Yang MD, PGY1 04/12/20 7:21 AM ENT Team Pager: [phone] Associated attestation - Rosa Welsh MD - 04/12/2020 8:01 PM EDT I have discussed the case with the resident, reviewed the pertinent details in the chart, interviewed and examined the patient. I agree with the documented history, exam findings and management plan. Rosa Welsh MD [phone] Kobe Reynoso MD - 04/11/2020 4:58 PM EDT NEUROSURGERY PROGRESS NOTE ID: Flavio Hamm is a 39 y.o. male with left vestibular schwannoma HD# 0 POD # Day of Surgery left middle fossa craniotomy for tumor resection with ENT (Dr. Welsh) INTERVAL HX/ROS: Post op check ROS: Patient denies fever, chills, headache, nausea, vomiting, and bowel or bladder symptoms. MEDICATIONS: Scheduled Meds: ??? eplerenone 25 mg Oral BID ??? senna-docusate 2 tablet Oral BID ??? pantoprazole EC 40 mg Oral Daily Or ??? pantoprazole 40 mg Intravenous Daily ??? Patch Verification 1 patch Transdermal BID ??? [START ON 04/12/2020] scopolamine 1 patch Transdermal Q24H ??? HYDROmorphone 0.2 mg Intravenous Once Continuous Infusions: PRN Meds: polyethylene glycoL, ondansetron OR ondansetron, metoclopramide, acetaminophen OR acetaminophen, oxyCODONE OR oxyCODONE, labetalol, hydrALAZINE EXAM: Vitals: Temp: [36.3 ??C (97.3 ??F)] Heart Rate: [60-84] Resp: [10-25] BP: (140)/(96) SpO2: [96 %-100 %] Heart Rate from SpO2: [59 bpm-91 bpm] BMI: I/O: No intake/output data recorded. GEN:NAD NEURO:AA+Ox3 Speech fluent and appropriate. Naming and repetition intact. PERRL. EOMI. Visual [place] full to confrontation. Closes eyes completely Left nasolabial fold flattening Asymmetric smile Tongue midline MOTOR: BEYER with equal strength to command No pronator drift LT sensation intact x 4 Dressings dry and intact LABS: No results for input(s): WBC, HGB, PLATELET in the last 72 hours. No results for input(s): NA, K, CL, CO2, BUN, CREATININE in the last 72 hours. No results for input(s): PT, INR in the last 72 hours. IMAGING: None A/P: Flavio Hamm is a 39 y.o. male with left vestibular schwannoma s/p crani for tumor. Expectedpost op left facial weakness (HB 3). -Neuro checks: q1h -Imaging: None -goal SBP <160 -anti-HTN: hydralazine, labetalol, nicardipine gtt PRN -Diet: Regular diet. -RBOs -DVT prophylaxis: SCDs. -hold anticoagulation and antiplatelet -activity as tolerated. -DISPOSITION: NCCU -FULL CODE PLEASE PAGE [phone] WITH QUESTIONS Active Hospital Problems Diagnosis ??? Vestibular schwannoma Resolved Hospital Problems No resolved problems to display. There are no active non-hospital problems to display for this patient. Kobe Reynoso MD 04/11/2020 Maryann Hill MD - 04/11/2020 7:09 AM EDT OTOLARYNGOLOGY - HEAD & NECK SURGERY H&P NOTE Name: Flavio Hamm Age/Sex: 39 y.o. male Attending: Tiki Jacobs MD Hospital Day: 1 Day of Surgery Interval History In brief, Flavio Hamm presents today for left acoustic neuroma resection via middle fossa approach. Patient found to have a left IAC acoustic neuroma on MRI in October after presenting with symptoms of imbalance/disequilibrium, hearing loss and tinnitus. There have been no changes to his history since he was last seen in December. He denies any recent illness. COVID Test negative. Physical Exam Most Recent Vitals: 04/11/20 0619 BP: (!) 140/96 Pulse: 72 Resp: 18 Temp: 36.3 ??C (97.3 ??F) SpO2: 100% Gen: No acute distress, alert and answers questions appropriately Head: Normocephalic atraumatic. EAC/TM not examined. Left postauricular region marked. Eyes: Normal extraocular motion, no nystagmus Mouth: [address] mucous membranes, symmetric elevation of soft palate, uvula midline. Neck: Normal range of motion, neck supple. CV: Regular rate Pulm: Unlabored breathing Abd: Abdomen soft and non-tender Ext: No peripheral edema ASSESSMENT & PLAN Plan for middle fossa craniotomy with neurosurgery for left acoustic neuroma resection. -Consent signed, dated, placed in chart -Patient will go to Neuro ICU post operatively Ok to proceed with scheduled operation. Maryann Hill MD, PGY2, Pager [phone] 04/11/20 7:10 AM ENT Team Pager: [phone] documented in this encounter H&P Notes Wilbur Christy APRN - 04/11/2020 7:25 AM EDT NEUROCRITICAL CARE HISTORY & PHYSICAL Date of Admission: 04/11/2020 5:58 AM HPI: Flavio Hamm is a 39 y.o. male w/ PMH of L acoustic neuroma and L central serous retinopathywho was experiencing unilateral tinnitus and hearing loss, presented to [facility] for elective acoustic neuroma removal. L IAC acoustic neuroma found on MRI in October of this year. Prior to this he was experiencing unilateral tinnitus and hearing loss. He was initially treated for Lyme and Babesia w/o improvement. Additionally had disequilibrium and recurrent episodes of imbalance. He was also experiencing additional symptoms such as headache, neck pain, and paresthesias which were found to be more consistent with migraine headaches per neurology evaluation. He is now s/p elective craniotomy for tumor resection. ROS: Gen: denies fever, chills, fatigue, malaise, weight loss Eyes: reports 'blue blurry blob' in left eye prior to surgery CV: denies chest pain, palpitations, lightheadedness, syncope, dyspnea on exertion Resp: denies SOB, cough GI: reports nausea and vomiting, denies diarrhea, constipation, abdominal pain Neuro: reports tinnitus and decreased hearing in left ear. Reports headache. Reports vertigo, tremor, balance problems. Denies weakness, paresthesias, seizures. History reviewed. No pertinent past medical history. History reviewed. No pertinent surgical history. Social History Tobacco Use ??? Smoking status: Former Smoker ??? Smokeless tobacco: Never Used ??? Tobacco comment: quit a few years ago Substance Use Topics ??? Alcohol use: Not Currently Medications Prior to Admission Medication Sig Dispense Refill Last Dose ??? eplerenone (Inspra) 25 mg Tablet Take 25 mg by mouth 2 times daily. 04/01/2020 ??? acetaminophen (Tylenol) 325 mg Tablet Take 650 mg by mouth every 4 hours as needed. 04/01/2020 ??? ibuprofen (Advil;Motrin) 600 mg Tablet Take 600 mg by mouth every 6 hours as needed. 04/01/2020 ??? omeprazole (PriLOSEC) 40 mg Capsule, Delayed Release(E.C.) Take 40 mg by mouth daily. 04/01/2020 Vital Sign Ranges: Last value Range last 24 hrs Temperature Temp: 36.3 ??C (97.3 ??F) Temp: [36.3 ??C (97.3 ??F)] Heart Rate Heart Rate: 75 Heart Rate: [72-75] Blood Pressure BP: (!) 140/96 BP: (140)/(96) Respiratory Rate Resp: 22 Resp: [18-22] SpO2 SpO2: 100 % SpO2: [100 %] Art BP BP (Arterial Line): 118/89 BP (Arterial Line): (118)/(89) Lines/Drains/Airways: Peripheral IV Line - Single Lumen 04/11/20627 median cubital vein (antecubital fossa), left 20 gauge (Active) Indication/Daily Review of Necessity fluid therapy continuous 04/11/20629 Site Preparation/Maintenance site cleansed: chlorhexidine solution;dressing: dry and intact Securement catheter stabilization device, secured with 04/11/20629 Patency/Maintenance flushed without difficulty;infusing 04/11/20629 Phlebitis 0-->no symptoms 04/11/20629 Infiltration 0-->no symptoms 04/11/20629 Labs: Recent Results (from the past 24 hour(s)) BLOOD GAS 2 ARTERIAL Result Value Ref Range pH Art 7.44 7.35 - 7.45 pCO2 Art 32 (L) 35 - 45 mmHg pO2 Art Not Perf 85 - 104 mmHg HCO3 Art 21.8 20.0 - 26.0 mmol/L BE Art -2.6 -3.0 - 3.0 mmol/L Hgb Blood Gas 13.9 13.7 - 16.5 gm/dL O2HB Art 99.2 (H) 94.0 - 97.0 % COHB Art 0.3 % METHB Art 0.3 <=1.5 % Na Whole Blood 136 135 - 145 mmol/L K Whole Blood 4.2 3.5 - 5.0 mmol/L ICa Whole Blood 1.18 1.15 - 1.33 mmol/L CL Whole Blood 108 (H) 98 - 107 mmol/L Gluc Whole Bld 93 65 - 199 mg/dL Lactate WB 1.5 0.5 - 2.2 mmol/L FIO2 Art 95 % Flow Art 1.0 LPM Temp Art 35.7 Celsius BLOOD GAS 2 ARTERIAL Result Value Ref Range pH Art 7.45 7.35 - 7.45 pCO2 Art 33 (L) 35 - 45 mmHg pO2 Art 306 (H) 85 - 104 mmHg HCO3 Art 22.8 20.0 - 26.0 mmol/L BE Art -1.6 -3.0 - 3.0 mmol/L Hgb Blood Gas 13.6 (L) 13.7 - 16.5 gm/dL O2HB Art 98.9 (H) 94.0 - 97.0 % COHB Art 0.4 % METHB Art 0.3 <=1.5 % Na Whole Blood 139 135 - 145 mmol/L K Whole Blood 4.1 3.5 - 5.0 mmol/L ICa Whole Blood 1.20 1.15 - 1.33 mmol/L CL Whole Blood 111 (H) 98 - 107 mmol/L Gluc Whole Bld 108 65 - 199 mg/dL Lactate WB 1.4 0.5 - 2.2 mmol/L FIO2 Art 56 % Flow Art 1.0 LPM PF Ratio Art 546 Temp Art 35.3 Celsius Surgical Pathology Report Result Value Ref Range Surgical Pathology Report [id number] Location: OR; OR01; A The signing pathologist has (i) examined the relevant preparation(s) for the specimen(s) and (ii) rendered or confirmed the diagnosis(es). . Frozen Section FROZEN SECTION DIAGNOSIS (A-FS1) Smear and frozen section preparations on an IAC tumor: SCHWANNOMA Results phoned to Dr. Jacobs on 04/11/20 at 12:05 PM. Electronically signed by: Jhony Su MD Verified: 04/11/2020 Pathologist Performed at: -[facility] Dept. of Pathology, [place], [place] This intraoperative consultation should be interpreted as a preliminary diagnosis pending review of the entire specimen and special studies, if any. POCT Glucose Result Value Ref Range POC Glucose 105 65 - 199 mg/dL Results for FLAVIO HAMM ( ) as of 04/11/2020 07:46 Ref. Range 04/08/2020 11:26 SARS-CoV-2 RNA Latest Ref Range: Not Detected Not Detected SARS-Cov-2 RNA Source Unknown MEDIA PROFESSIONAL Swab Imaging: No results found for this visit on 04/11/20. MRI Brain wwo (03/28): IMPRESSION Unchanged left IAC mass. MRI R Shoulder (03/28): IMPRESSION Low-grade interstitial tear of the anterior infraspinatus at its footprint. ?? Ganglion within the superior subscapularis tendon, likely due to a prior tear. ?? Grade 1 strain of the infraspinatus and posterior deltoid muscles. ?? Os acromiale. EKG: No results found for this or any previous visit. Physical Exam: Physical Exam Vitals signs reviewed. Constitutional: Appearance: Normal appearance. He is normal weight. HENT: Nose: Nose normal. Mouth/Throat: Mouth: Mucous membranes are moist. Eyes: Extraocular Movements: Extraocular movements intact. Conjunctiva/sclera: Conjunctivae normal. Pupils: Pupils are equal, round, and reactive to light. Neck: Musculoskeletal: Normal range of motion and neck supple. No muscular tenderness. Cardiovascular: Rate and Rhythm: Normal rate and regular rhythm. Pulses: Normal pulses. Heart sounds: Normal heart sounds. No murmur. No friction rub. No gallop. Pulmonary: Effort: Pulmonary effort is normal. Breath sounds: Normal breath sounds. Abdominal: General: Abdomen is flat. Bowel sounds are decreased. There is no distension. Tenderness: There is no abdominal tenderness. Musculoskeletal: Normal range of motion. Skin: General: Skin is warm and dry. Capillary Refill: Capillary refill takes less than 2 seconds. Neurological: General: No focal deficit present. Mental Status: He is alert and oriented to person, place, and time. GCS: GCS eye subscore is 4. GCS verbal subscore is 5. GCS motor subscore is 6. Cranial Nerves: Facial asymmetry present. Motor: Motor function is intact. Comments: Left sided facial weakness and droop Psychiatric: Mood and Affect: Mood normal. Behavior: Behavior normal. ASSESSMENT & PLAN: Flavio Hamm is a 39 y.o. male w/ PMH of L acoustic neuroma and L central serous retinopathy who was experiencing unilateral tinnitus and hearing loss, presented to [facility] for elective acoustic neuroma removal. He is now s/p elective craniotomy for tumor resection. 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 - q1h neuro checks, VS - No additional imaging requested - HOB > 30 deg - analgelsia: - tylenol ATC - oxycodone prn - home meds: Amitriptyline 75mg PO daily # CV - obtain baseline EKG (if not already done) - SBP goal < 160 - labetalol, hydralazine for SBP > 160 - maintain arterial line for close BP monitoring - home meds: eplerenone 25mg PO BID # Pulm - goal O2 sats > 92% - continue chest PT/pulm toileting - IS 10x q1h while awake - nebs PRN # GI - diet: sips/chips for now - maintain bowel reg - zofran, reglan prn for nausea/vomiting - scopolamine patch q72h - protonix 40mg IV daily - home meds: Omeprazole 40mg daily # FEN/ - maintain euvolemia, I=O - Goal Na 135-145, K > 4, Mg > 1 - ICU potassium repletion protocol - continue IVF until tolerating full diet - daily BMP, Mg, PO4 # Heme - goal Hgb > 7, INR < 1.5, Platelets > 100k - daily CBC - SCDs only for DVT ppx, hold chemoppx # Endo - goal glucose 120-180 --> ISS # ID - for temp > 38.4 C --> UA, CXR, blood cx, sputum cx - tylenol PRN - continue ancef q8h x 24h for mariah-operative ppx # ICU Bundle Feeding: Regular diet Analgesia: tylenol, celebrex, robaxin; oxy, flexeril prn Sedation:N/A Thromboprophylaxis: SQH on hold immediately post-op/SCDs only HOB > 30 degrees Ulcer prophylaxis: H2b (home med) Glycemic Control: goal glucose 120-180, ISS Bowel Reg: RBO Indwelling Catheters/Lines/Tubes: R radial A-line, peripherals, dangelo De-escalate Antibiotics: ancef x 24h for mariah-op ppx Code Status - Attempt Cardiopulmonary Resuscitation - Inpatient Dispo - ICU Kobe Reynoso MD - 04/11/2020 7:13 AM EDT Neurosurgery Pre-operative H&P 04/11/2020 Flavio Hamm [id number] CC: Left vestibular schwannoma HPI: Flavio Hamm is a 39 y.o. male presents for scheduled elective craniotomy for tumor resection]. All questions answered. No complaints. Denies headache, nausea, vomiting, numbness, weakness, paresthesias, LOC, seizures, difficulties with balance, visual or auditory symptoms. Denies bowel or bladder symptoms. PMH/PSH: History reviewed. No pertinent past medical history. History reviewed. No pertinent surgical history. Medications: No current facility-administered medications on file prior to encounter. Current Outpatient Medications on File Prior to Encounter Medication Sig Dispense Refill ??? eplerenone (Inspra) 25 mg Tablet Take 25 mg by mouth 2 times daily. ??? acetaminophen (Tylenol) 325 mg Tablet Take 650 mg by mouth every 4 hours as needed. ??? ibuprofen (Advil;Motrin) 600 mg Tablet Take 600 mg by mouth every 6 hours as needed. ??? omeprazole (PriLOSEC) 40 mg Capsule, Delayed Release(E.C.) Take 40 mg by mouth daily. Allergies: Reviewed Family Hx: Reviewed, noncontributory Social Hx: Nonsmoker Drinks alcohol occasionally Denies illicits ROS: Constitutional: No recent weight loss / fevers / chills / night sweats. HEENT: No recent visual changes / hearing changes. Cardiovascular: No chest pain / palpitations. Pulmonary: No shortness of breath / cough GI: No abdominal pain / vomiting / change in bowel pattern : No dysuria / urinary retention / urinary incontinence. Physical Exam: Vital Signs: BP (!) 140/96 (BP Location (NBP): Left arm) Pulse 72 Temp 36.3 ??C (97.3 ??F) (Temporal) Resp 18 SpO2 100% General: NAD CVS: RRR Resp: CTAB HEENT: Atraumatic, normocephalic Neuro: Mental Status/Cognitive: Awake, alert, oriented x3 Speech: Fluent, appropriate Cranial Nerves: CN II - Visual acuity and segovia grossly intact, PERRL CN III, IV, - EOMI CN VII - No facial asymmetry CN VIII - Hearing diminished in left ear CN IX, X - Palate and uvula midline CN XI - Trapezius 5/5 bilat CN XII - Tongue midline Motor: No pronator drift. Tone: Normal Power: Segment Muscle Action Right Left C5 Deltoid Shoulder Abduction 5 5 C6 Biceps Elbow flexion 5 5 C6 Extensor carpi radialis Wrist extension 5 5 C7 Triceps Elbow extension 5 5 C8 Finger flexors Grasp 5 5 T1 Interossei Finger abduction 5 5 L2 Iliopsoas Hip flexion 5 5 L3 Quadriceps Knee extension 5 5 L4 Tibialis anterior Dorsiflexion 5 5 L5 Extensor hallucis Great toe extension 5 5 S1 Gastrocnemius Plantar flexion 5 5 Sensation in the extremities: Light touch: Intact x 4 Gait: Not assessed Labs: No results for input(s): NA, K, CL, CO2, BUN, CREATININE, GLUCOSE, CALCIUM, MAGNESIUM, PHOS in the last 72 hours. Invalid input(s): CAION No results for input(s): WBC, HGB, HCT, MCV, PLATELET in the last 72 hours. Invalid input(s): RDW No results for input(s): PT, INR, FIBRINOGEN in the last 72 hours. Invalid input(s): PROTHROMBIN No results for input(s): AST, ALT, ALKPHOS, ALB, LIPASE in the last 72 hours. Invalid input(s): TBILI, TP No results for input(s): HDL in the last 72 hours. Invalid input(s): CHOLESTEROL, LDL, TG Assessment and Plan: -Pre-operative labs -OR planning documented in this encounter Procedure Notes Doug Cortes MD - 04/11/2020 5:58 PM EDT NEURODIAGNOSTIC LABORATORY [facility] INTRAOPERATIVE MONITORING REPORT Name: Flavio Hamm : 1980 Date of Surgery: 04/11/2020 Surgeon(s): Tiki Jacobs MD, Rosa Welsh MD, Kobe Reynoso MD Surgical Procedure: Left middle fossa crani for acoustic neuroma Monitoring Procedure: Free running EMG of the left-side frontalis, masseter, orbicularis oculi, orbicularis katlyn, mentalis, and trapezius muscles; bilateral brainstem auditory evoked responses (BAERs);bilateral upper extremity SSEPs; transcranial motor evoked potentials (tcMEPs) to assess cranial nerve integrity; scalp EEG; peripheral motor conduction testing on the ulnar nerves using CMAP pickup from the ipsilateral abductor digiti minimi muscles. CPT Codes: 65137 (EEG), 57915 (CN EMG unilateral 7 muscles), 71341 (JOSSY bilateral), 95884 (tcMEP upper extremity), 59890 (upper extremity SSEP bilateral), 25728 (IOM, 8 units), 61970 (IOM, 2 Units), Total IOM time: 3 hours, 53 minutes. Intraoperative neurophysiologic monitoring was performed for a total duration of 3 hours and 53 minutes. During this time period, the IOM attending was present in the operating room for a total of 115 minutes Clinical History: 39-year-old male with a history of disequilibrium and unilateral tinnitus. He was found to have a schwannoma within the IAC on the left side. Monitoring Team: Doug Cortes MD/PhD; Jermaine Carrasco PhD,CNIM; Kristin NAP[place]ES, [facility], R.EEG/EP.T. Anesthesia: TIVA using propofol and opioid with no muscle relaxant after intubation. Report: Following anesthesia and prior to surgical incision, surface needle electrode pairs were placed in the left-side masseter, frontalis, orbicularis oculi, orbicularis katlyn, mentalis, and trapezius muscles to facilitate EMG-based monitoring of left-side cranial nerves V, VII, and XI, as well as the bilateral abductor digiti minimi muscles. Surface needle electrodes were also placed at appropriate locations on the scalp to record BAERs from acoustic inserts placed in the ears and cortical SSEPs from stimulation leads placed bilaterally over the ulnar nerves. Stimulating electrodes were placed at scalp locations M4 and Mz to elicit facial nerve MEPs in the aforementioned muscles. Peripheral motor conduction testing was done via stimulation leads placed over the ulnar nerves with pickup from the abductor digiti minimi muscle. Counts were kept of all needles and other items attached to the patient for monitoring. At baseline and prior to incision, reproducible bilateral upper extremity SSEPs within normal limitswere present. Reproducible BAERs with identifiable waves I, III and V were recorded from both ears. Cranial nerve MEPs were present in orbicularis katlyn muscle at 55-V stimulation (50 ??s pulse width, 1000 Hz, 8 pulses, normal polarity). EEG was typical for the type of anesthesia being used, with periods of burst suppression. EMG was quiet at baseline. Surgeons used the PRASS probe to identify the cranial nerve's location. The cranial nerve VII was identified by stimulating at 0.5 mA through the bone. During the drilling, EMG were active on the cranial nerve VII-innervated muscles. Surgeons used irrigation to cool down the activities. EMG from the fa cial nerve (VII) became quiet after the irrigation. After dura was opened, surgeons used the PRASS probe to identify the facial nerve (VII) with a 0.1-mA stimulation. We were able to obtain robust EMG activities from facial muscles. While surgeons were debulking the tumor, we noticed the latency of left-side JOSSY wave III-V started to increase. At one point the latency of wave III-V was delayed by 0.8 ms. Surgeons paused the manipulation and irrigated the field. After tumor was removed, the left-side JOSSY gradually returned to baseline. At closing, SSEPs were stable. Left-side JOSSY returned to baseline. Facial motor was elicited at 55 V and showed responses on orbicularis katlyn muscle. We were able to obtain facial muscle EMG response with PRASS stimulation on the facial nerve at 0.05 mA. Following closing of the skull, monitoring was complete per surgeon's request. Impression: This IOM study suggests transient irritation of the left facial nerve, as well as transient compromise of the left auditory pathway intraoperatively. No other significant changes were noted in the aforementioned responses during the neuromonitoring period. Overall, this IOM study suggests the procedure was accomplished without significant neurophysiologic changes when compared to the patient???s baseline. Doug Cortes MD/PhD Cc: Tiki Jacobs MD, Rosa Welsh MD. documented in this encounter Miscellaneous Notes Plan of Care - Jelly Crenshaw RN - 04/13/2020 6:15 AM EDT Problem: Brain Injury, Moderate Traumatic (GCS 9-12) (Adult) Intervention: Monitor/Manage Pain 04/12/2021 04/12/20199904/13/20 0546 Manage Acute Burn Pain Bowel Intervention -- -- adequate fluid intake promoted;ambulation promoted Pain Management Interventions analgesic trial initiated;pain management plan reviewed with patient/caregiver -- -- Safety Interventions Medication Review/Management -- medications reviewed -- OUTCOME EVALUATION NOTE: OUTCOME SUMMARY: Pt AOx4, able to follow commands approprietly, pupils PERRL 3mm, currently on room air and tolerating well. PRN dilaudid and tylenol administered to manage pain. SBP <160, VSS, Afebrile. Dangelo removed start of shift, pt able to adequately void using the urinal without issue. Arterial line removed. Pt denies any nausea. Pt currently resting comfortably, will continue to monitor. PLAN MOVING FORWARD: Q4 Neuro SBP <160 Manage pain D/C home? INDIVIDUALIZED FALL PREVENTION INTERVENTIONS: Patient-specific fall risk factors per assessment: [current deficits]: General weakness Assistance [level of assistance required for transfers and ambulation]: Partial Assit Supervision [direct monitoring required during toileting and ADLs]: Narinder Surveillance [continuous indirect monitoring]: [place] Patient-specific fall prevention interventions for sensory deficits provided, if applicable: Yes CPG GOAL OUTCOME EVALUATION: Op Note - Rosa Welsh MD - 04/12/2020 7:24 PM EDT [facility] Operative Note Patient Name: Flavio Hamm : [id number] MR#: [id number] Case Date: 04/11/2020 Surgeon: Surgeon(s) and Role: Panel 1: * Tiki Jacobs MD - Primary * Kobe Reynoso MD - Resident * Lizzie Singh MD - Resident * Doug Cortes MD - Assisting Attending Panel 2: * Rosa Welsh MD - Primary * Maryann Hill MD - Resident Preoperative diagnosis: vestib schwannoma Postoperative diagnosis: vestib schwannoma Procedure(s) (LRB): @CRANI-INFRATEMPORAL APPROACH TO MIDDLE FOSSA (WRVU 47.04) (Left) SPINAL PUNCTURE, THERAPEUTIC, FOR DRAINAGE OF CSF (LUMBAR DRAIN PLACEMENT) (WRVU 1.35) (N/A) MICROSCOPE USE (WRVU 3.46) (N/A) @CRANI-EXC ORRESECTION EXTRADURAL LESION-ANT. FOSSA (WRVU 32.57) (N/A) @CRANIECTOMY,TRANSTEMPORAL- ACOUSTIC NEUROMA (WRVU 54.08) Anesthesia: General Estimated Blood Loss: 25 mL Specimens removed during surgery: Order Name Source Comment Collection Info Order Time SPECIMEN TO PATHOLOGY IAC Tumor for frozen section OR#[id number] vestib schwannoma IAC tumor excision YES, Please perform frozen section 04/11/2020 11:43 AM Number of tissue samples (in container) 1 Time specimen removed from patient: 11:41 AM SPECIMEN TO PATHOLOGY vestib schwannoma I.A.C. Tumor excision 04/11/2020 12:26 PM Time specimen removed from patient: 12:06 PM Number of tissue samples (in container) 1 Drains: * No LDAs found * Surgical Closure: Primary Closure - skin incision is completely closed without any wires, anup, drains or other devices Disposition: awakened from anesthesia, extubated and taken to the recovery room in a stable condition, having suffered no apparent untoward event. Condition: doing well without problems (Please see the Surgical Encounter Summary for any Implant and Specimen details pertinent to this patient.) HPI/Surgical Indications: acoustic neuroma left IAC Procedure Description: Preoperative Diagnosis: Acoustic neuroma Postoperative Diagnosis: Acoustic neuroma Procedure: Middle fossa craniotomy with resection of acoustic neuroma. Side: left Findings: cochlea and facial nerves anatomically intact with minimal change of ABR and good facial nerve stim at brainstem (0.05 mA) Anesthesia: General. Complications: None. Disposition: Condition good to Recovery Room. Clinic Note: This is a dictation of the neurotology portion of a joint procedure done with Neurosurgery. The details of the neurosurgical procedure, including the initial craniotomy, fat graft, and closure, are dictated in a separate operative report. Procedure: The patient was taken to the Operating Room and placed on the operative table in supine position. After adequate general anesthesia and oroendotracheal intubation, the patient was prepared for surgery. Nerve integrity monitoring was provided by the Neurology Service. This included monitoring of the seventh and eighth cranial nerves, as well as lower motor track monitoring, fifth cranial nerve monitoring, and trapezius monitoring. Details of the neuromonitoring are also dictated in a separate report. The initial incision and craniotomy was performed by the Neurosurgical Service. The dura was elevated off the petrous apex. At this point, the landmarks were identified per the internal auditory canal. The internal auditory canal was drilled using rotating sharif burrs. This began anteriorly and extended posteriorly unit the superior lip of the canal was dissected approximately 180 degrees in circumference. Dissection was then carried out laterally, using progressively smaller area of exposure lateral at the fundus of the internal auditory canal. The labyrinthine segment of the fallopian canal was identified and decompressed. Bill's bar was identified. At this point, the dura was opened in the posterior internal auditory canal to expose the tumor. The superior vestibular nerve was identified and was sectioned laterally and reflected medially. The facial nerve was well defined. The dura was reflected back to the cerebellopontine angle and folded anteriorly. A recordable ABR waveform m onitored during tumor resection. At this point, Dr. Jacobs took control of the surgery and dissected the tumor away from the medial cochlear nerve, and both facial and cochlear nerves were in excellent condition at the conclusion of tumor resection. The facial nerve was stimulated at 0.05 milliamperes of stimulus intensity at the completion of the bone and tumor removal. The inferior vestibular nerve was sectioned along with the tumor. The internal auditory canal was closed with DuraGen and abdominal fat. The closure is dictated in the neurosurgical dictation. The patient was awoken in the Operating Room. The patient was taken from the Operating Room to the Recovery Room in good condition. Infection Bundle used? N/A Attestation: Case Date: 04/11/2020 I performed this procedure without the involvement of a resident. ROSA WELSH MD 04/12/2020 Initial Assessments - Mercy Isabel RN - 04/12/2020 10:00 AM EDT Office of Care Management Initial Assessment Mercy Isabel RN reviewed record and discussed patient with Care Team. Source of Information: Chart review; interview with pt's Joanie; pt was sleeping. Introduced self/reviewed role; services accepted. Reason for Hospitalization: Pt is post-operative day one for: CRANIECTOMY,TRANSTEMPORAL- ACOUSTIC NEUROMA Last COVID test date and time: 04/09/2020 at 1:28- Not Detected. History reviewed. No pertinent past medical history. Hospitalizations Within the Past 30 Days: No. Anticipated Length Of Stay (If known): Current Decision-Making Capacity: Pt sleeping. Is alert and oriented when awake. Advance Care Planning: Does not have. Discussed and provided advance directive booklet and forms, patient will discuss with family at a later time. If AD's have not been completed ulises Nair would be surrogate decision maker per [place] surrogate decision making law. Any patient receiving care at [facility] must abide by [place] law. The hierarchy for surrogate decision making is: (a) Patient???s spouse, or civil union partner or common law spouse unless there is a divorce proceeding, separation agreement, or restraining order limiting that person???s relationship with the patient. (b) Any adult son or daughter of the patient. (c) Either parent of the patient. (d) Any adult brother or sister of the patient. (e) Any adult grandchild of the patient. (f) Any grandparent of the patient. (g) Any adult aunt, uncle, niece, or nephew of the patient. (h) A close friend of the patient. (i) The agent with financial power of state attorney or a conservator appointed in accordance with RSA 464-A. (j) The guardian of the patient???s estate. Current Coping/Education/Information Needs: Per and nursing notes, pt cooperative with care, aware of his surroundings. Current Functional Ability: Bedrest. Head of bed at 30 degree, Lumbar drain intact. Functional Status Prior to Admission: Independent. 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 Home Environment: One story mobile home; lives with and four children ages 15,12,11 and eight years old Social & Family Supports/Community Resources: , maternal grand parents, friends. Behavioral Health History: denied. Substance Use/Abuse: denied. Other Pertinent/Service Specific Information: No. Health/Prescription Coverage: Primary Insurance: MEDICAID [place] Secondary Insurance: N/A Prescription Coverage: Yes. [facility]. Preferred Pharmacy: [facility] Primary Care Provider: Syed Leong MD [phone] Patient/Caregiver Goals of Treatment: To return to home in care of family. Potential Needs for Transition of Care: Rehab/SNF: No. Home Health: TBD pending pt's progress. DME: No Dialysis: No Community Resources: No Transportation: Via car. Anticipated Barriers to Discharge/Special Considerations: Not at time of IA. Assessment: Flavio Hamm is a 39 year old male who is one day post operative for left meddle fossacraniotomy for tumor resection. Pt sleeping; Joanie kindly answered all questions. She plans togo home afternoon. She is available by phone. Plan: Continue to follow pt's progress. Place referrals if needed. Joanie stated she is available to drive Flavio to out pt Physical Therapy as needed. A member of the Care Management team will continue to monitor progress, follow for continuity of care and assist with transition of care planning. Mercy Isabel RN [facility] [phone] Pager # [phone] Plan of Care - Caitlin Noble SLP - 04/12/2020 8:41 AM EDT Speech Therapy Note Patient Profile: Flavio Hamm is a 39 y.o. male w/ PMH of L acoustic neuroma and L central serousretinopathy who was experiencing unilateral tinnitus and hearing loss admitted on 04/11/2020 for elective acoustic neuroma removal.??He is now s/p??elective craniotomy for tumor resection. Interval History: Had episodes of vomiting overnight. Subjective: Patient very sleepy, intermittently answering questions and asked for water. Reports that he has only had water to drink and vomited it all up. Nini at bedside. Objective: Pt seen for dysphagia management and demonstrated the following: Pain: Denies Respiratory Status: Room air Current Diet: Regular diet Feeding / Oral Care Status: Pt is independent Cognitive-Linguistic Status: Lethargic, fatigued. Aware of surroundings. Able to answer a few questions. Command Following: Follows single step commands, Requires increased time to complete Positioning: HOB at 70 degrees Oral / Laryngeal Mechanism Clinical Assessment: ?? Lingual: Tongue protrudes midline. Able to lateralize adequately ?? Labial / Buccal: Left facial droop ?? Velar: Did not visualize ?? Sensation: Reported intact by patient ?? Vocal fold function and airway protection: Voice is clear ?? Speech Intelligibility: Speech is slightly slowed ?? Mucosa: Dry ?? Dentition: present and adequate Bolus Presentation(s): ?? Thin liquid via straw Oral Preparatory Phase: Oral transit and bolus control are functional for small amounts of water. Adequate labial seal to suck from straw. Pharyngeal Phase: Negative for cough, throat clear, change in vocal quality Esophageal Phase: Unable to assess; limited trials Education: Patient , educated on results and recommendations, and verbalized understanding. 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 Assessment limited by fatigue and nausea. Oral [facility] exam significant for left facial droop, otherwise intact. Patient drinking small amounts of water without s/sx of significant dysphagia or aspiration. Reviewed swallow strategies with patient and . SURFACING MACHINE OPERATOR will follow up as indicated, please page if needed sooner. Pt will benefit from continued therapeutic interventions to achieve therapy goals. Diagnosis: ? Oral dysphagia r/t left facial droop; requiring ongoing assessment Recommendations: Diet: Regular solids, Thin liquids PO medications: whole with sip of liquid Aspiration precautions: ?? Feed only when alert ?? Upright position during meals and for at least 30 mins following ?? Excellent oral care ?? Introduce food on right side of mouth if this is easier Speech Therapy Goals: Pt will tolerate least restrictive diet without evidence of dysphagia / aspiration. Pt / caregiver will be independent with aspiration precautions, diet modifications, and safe swallowing strategies. Plan: Therapy Frequency: 1-3 more visits Pt./family are in agreement with treatment plan. Total Evaluation Minutes, Speech Language Pathology: 9 Caitlin Noble MS, [facility]-SURFACING MACHINE OPERATOR Pager: [phone] Speech-Language Pathologist Inpatient Rehabilitation Medicine Plan of Care - Emeka Copeland RN - 04/12/2020 7:40 AM EDT Problem: Patient Care Overview Goal: Plan of Care Review Outcome: Ongoing (Interventions Implemented as Appropriate) 04/12/20 0738 Coping/Psychosocial Plan Of Care Reviewed With patient;spouse Plan of Care Review Progress progress toward functional goals as expected OUTCOME EVALUATION NOTE: OUTCOME SUMMARY: Patient continues to work towards discharge goals. No decline in neurological exam for shift. Pain, nausea, and emesis controlled with PRNs per order. Head CT complete. Assessment ongoing. PLAN MOVING FORWARD: Monitor neurological exam hourly. Down grade to NSCU pending this day. Plan of Care - Elsa Nick RN - 04/11/2020 9:02 PM EDT Problem: Patient Care Overview Goal: Plan of Care Review Outcome: Ongoing (Interventions Implemented as Appropriate) 04/11/202056 Coping/Psychosocial Plan Of Care Reviewed With patient;spouse Plan of Care Review Progress no change OUTCOME EVALUATION NOTE: OUTCOME SUMMARY: Pt arrived to unit from OR s/p crani. A&O x4. Slight L facial droop. NEWTOK left side. 5/5 strengthx4. Nx and vom throughout shift. Pain 10/10 most of shift. 2x IV dilauded given. SBP into 80's with second dose. 500cc fluid bolus given. Pt neuro intact throughout. Unable to take PO meds r/t nx and vom. Lumbar drain clamped. Dressing intact. No drainage around drain site. PLAN MOVING FORWARD: - Q1h neuro checks overnight - scopolamine patch, benadryl, and NS bolus for nx - IV pain medication INDIVIDUALIZED FALL PREVENTION INTERVENTIONS: Patient-specific fall risk factors per assessment: [current deficits]: Pain, unfamiliar environment,lumbar drain Assistance [level of assistance required for transfers and ambulation]: 2 person assist with turns Supervision [direct monitoring required during toileting and ADLs]: Total assist w/ ADLs, call taylor within reach, room near unit station Surveillance [continuous indirect monitoring]: Continuous Barcenas monitoring Patient-specific fall prevention interventions for sensory deficits provided, if applicable: [X] Yes CPG GOAL OUTCOME EVALUATION: Plan of Care - Caitlin Noble SLP - 04/11/2020 3:38 PM EDT Speech Therapy Bedside Swallow Evaluation Patient Profile: Flavio Hamm is a 39 y.o. male w/ PMH of L acoustic neuroma and L central serousretinopathy who was experiencing unilateral tinnitus and hearing loss admitted on 04/11/2020 for elective acoustic neuroma removal. He is now s/p elective craniotomy for tumor resection. Prior Level of Swallow Function: Patient noted to RN some difficulty chewing/swallowing but was unable to further describe this. unaware of any difficulty chewing/swallowing. Subjective: Nini at bedside. Patient very lethargic but asking for water. Objective: Pt seen for evaluation today. Pain: No obvious pain/distress Respiratory Status: Room air Vision: Did not assess Hearing: Appears WFL for assessment Current Diet: Regular diet Feeding / Oral Care Status: Pt is independent Cognitive-Linguistic Status: Lethargic, fatigued. Able to answer a few simple questions. Follows Commands: Follows single step commands, Requires increased time to complete Positioning: HOB at 70 degrees Oral / Laryngeal Mechanism Clinical Assessment: ?? Lingual: Reduced lingual ROM. ? Slight lingual deviation to the right ?? Labial / Buccal: Left facial droop ?? Velar: Did not visualize ?? Sensation: Reported intact by patient ?? Vocal fold function and airway protection: Voice is clear ?? Speech Intelligibility: Speech is slightly slowed ?? Mucosa: Dry ?? Dentition: present and adequate Bolus Presentation(s) ?? Thin liquid via straw ?? Additional PO trials not administered 2/2 fatigue/lethargy Oral Preparatory Phase ?? Mastication: Did not assess ?? Oral Transit: Appears functional for sips of water ?? Bolus Cohesion: Appears functional for sips of water ?? Labial Seal / Loss: Functional labial seal to sip water from a straw ?? Oral Stasis: Negative Pharyngeal Phase ?? Laryngeal Elevation: Present ?? Vocal quality change: Negative ?? Cough / throat clear: Negative ?? Pt. complaint of food getting stuck: Negative ?? Fatigue across trials: Yes ?? Respiratory rate and respiratory swallow pattern: No change Esophageal Phase ?? Unable to assess; limited amounts Education: Patient , educated on results and recommendations, and verbalized understanding. Patient status, treatment and swallow recommendations were discussed with nursing. Assessment: Patient seen today for a bedside swallow evaluation s/p elective craniotomy for tumor resection of L IAC acoustic neuroma. Evaluation was limited by patient's significant fatigue. Patient reporting some difficulty chewing/swallowing but was unable to further describe. Oral mech exam signifi cant for left sided facial droop and impaired lingual ROM. Observed to drink water without any significant oral dysphagia or s/sx of aspiration. Additional PO trials not administered 2/2 fatigue/lethargy. Patient is ordered for a regular diet, RN to provide supervision and monitor for s/sx of dysphagia if patient becomes more alert to take PO. SURFACING MACHINE OPERATOR will plan to follow up tomorrow morning for a more comprehensive assessment. Diagnosis: ? Oral dysphagia requiring ongoing assessment Recommendations: Diet: Regular solids, Thin liquids PO medications: whole with sip of liquid Aspiration precautions: ?? Feed only when alert ?? Upright position during meals and for at least 30 mins following ?? Excellent oral care Pt will benefit from continued SURFACING MACHINE OPERATOR services while hospitalized Speech Therapy Goals: (To be met by discharge) Pt will tolerate least restrictive diet without evidence of dysphagia / aspiration. Pt / caregiver will be independent with aspiration precautions, diet modifications, and safe swallowing strategies. Plan: Therapy Frequency: 1-3 more visits Pt./family are in agreement with treatment plan. Total Evaluation Minutes, Speech Language Pathology: 12 Thank you for this consult with this patient. Please feel free to page me with any questions or concerns. Caitlin Noble MS, [facility]-SURFACING MACHINE OPERATOR Pager: [phone] Speech-Language Pathologist Inpatient Rehabilitation Medicine Op Note - Tiki Jacobs MD - 04/11/2020 1:14 PM EDT [facility] Operative Note Patient Name: Flavio Hamm : [id number] MR#: [id number] Case Date: 04/11/2020 Surgeon: Surgeon(s) and Role: Panel 1: * Tiki Jacobs MD - Primary * Kobe Reynoso MD - Resident * Lizzie Singh MD - Resident * Doug Cortes MD - Assisting Attending Panel 2: * Rosa Welsh MD - Primary * Maryann Hill MD - Resident Preoperative diagnosis: vestib schwannoma Postoperative diagnosis: vestib schwannoma Procedure(s) (LRB): @CRANI-INFRATEMPORAL APPROACH TO MIDDLE FOSSA (WRVU 47.04) (Left) SPINAL PUNCTURE, THERAPEUTIC, FOR DRAINAGE OF CSF (LUMBAR DRAIN PLACEMENT) (WRVU 1.35) (N/A) MICROSCOPE USE (WRVU 3.46) (N/A) @CRANI-EXC ORRESECTION EXTRADURAL LESION-ANT. [facility]) (N/A) @CRANIECTOMY,TRANSTEMPORAL- ACOUSTIC NEUROMA ([facility]) Anesthesia: General Estimated Blood Loss: 25 mL The patient is a 39-year-old male with a history of disequilibrium and unilateral tinnitus. The patient was found to have a schwannoma within the IAC on the left side. Options were presented and the patient wished to proceed with operative resection. Operative note The patient was anesthetized and placed on the left lateral side. The lumbar region was prepped and draped in usual sterile fashion. A Touhy needle was inserted into the lumbar cistern and spinal fluidwas expressed. We then threaded a lumbar drain to approximately 15 cm. The needle was removed. The drain was attached to a Brainrack drainage system and clamped off. The tubing was affixed with tape and gauze. The patient was then rolled into a supine position with the head turned to the far right. Three-point Pearson pin fixation was applied. Neuro monitoring was attached. A ? Incision was made from the level of the zygoma up and centered over the region of the IAC. The area was prepped and draped in the usual sterile fashion. Following a timeout, the incision was made and carried down to the temporalis fascia. Princess clips were applied along the perimeter. Bovie electrocautery was used to cut through the temporalis fascia and muscle and the myocutaneous flap reflected anteroinferiorly. A single bur hole was placed at the posterior root of zygoma as well as one near the keyhole. A craniotomy was fashioned without difficulty. The dura remained intact. We then inspected the middle fossa floor. We felt as though the middle fossa floor was deeper than originally planned therefore a crescent-shaped piece of bone was cut off. This was plated back to the original bone flap and set aside for later use. The operating microscope was then brought into position. During this we drained approximately 20 cc of spinal fluid. This relaxed the dura. An epidural dissection was performed over the middle fossa floor and a Leahy retractor placed without difficulty. Dr. Welsh then commenced drilling of the IAC. Upon our return, there was a small remnant of tumor left at the very medial aspect of the IAC. This was dissected free from the facial and cochlear nerves and using micro dissection techniques, we wereable to remove the tumor in what appeared to be a complete fashion. There is no evidence of residualtumor at the conclusion. We then made a small incision in the prepped left lower quadrant of the abdomen. Subcutaneous fat was harvested. The wound was then liberally irrigated and closed with invertedVicryl sutures and a running Monocryl. Dr. Welsh performed a closure of the IAC. At this point weinspected the area. Meticulous hemostasis was obtained. A single sleeper stitch was placed at the i inferior edge of dura and let up through the bone flap. The bone flap was affixed with microplates and the sleeper stitch secured. The muscle and fascia, galea, and skin were then closed in a layered fashion. The patient was removed from the Pearson, the head wrapped, and was transferred to the ICU instable condition Attestation: Case Date: 04/11/2020 I was present and I participated during the entire procedure (does not need to include opening and closing). TIKI JACOBS MD 04/11/2020 documented in this encounter Plan of Treatment Not on filedocumented as of this encounter Procedures Procedure Name Priority Date/Time Associated Comments Diagnosis HEMOGRAM Routine 04/13/2020 12:00 Results for this AM EDT procedure are i n the results section. DIFFERENTIAL, Routine 04/13/2020 12:00 Results fo r this AUTOMATED AM EDT procedure are i n the results section. HC CBC,PLT & AUTO Routine 04/13/2020 12:00 DIFF AM EDT BASIC METABOLIC PANEL Routine 04/13/2020 12:00 Re sults for this (NON-FASTING) AM EDT procedure are in the results section. CT HEAD WO CONTRAST Routine 04/12/2020 5:29 AM Re sults for this (GENERIC) EDT procedure are i n the results section. HEMOGRAM Routine 04/12/2020 1:44 AM Results f or this EDT procedure are i n the results section. DIFFERENTIAL, Routine 04/12/2020 1:44 AM Results for this AUTOMATED EDT procedure are i n the results section. HC CBC,PLT & AUTO Routine 04/12/2020 1:44 AM DIFF EDT BASIC METABOLIC PANEL Routine 04/12/2020 1:44 AM Results for this (NON-FASTING) EDT procedure are in the results section. POCT GLUCOSE Routine 04/11/2020 2:02 PM Results f or this EDT procedure are i n the results section. SPECIMEN TO PATHOLOGY Routine 04/11/2020 12:26 Re sults for this PM EDT procedure are i n the results section. SURGICAL PATHOLOGY Routine 04/11/2020 11:43 Resul ts for this REPORT AM EDT procedure are i n the results section. SPECIMEN TO PATHOLOGY STAT 04/11/2020 11:43 Re sults for this AM EDT procedure are i n the results section. BLOOD GAS 2 ARTERIAL Routine 04/11/2020 10:27 Res ults for this AM EDT procedure are i n the results section. BLOOD GAS 2 ARTERIAL Routine 04/11/2020 8:38 AM R esults for this EDT procedure are i n the results section. @CRANIECTOMY,TRANSTEM 04/11/2020 7:36 AM Vestibular PORAL- ACOUSTIC EDT schwannoma NEUROMA (WRVU 54.08) @CRANI-EXC 04/11/2020 7:36 AM Vestibular ORRESECTION EDT schwannoma EXTRADURAL LESION-ANT. FOSSA (WRVU 32.57) MICROSCOPE USE (WRVU 04/11/2020 7:36 AM Vestibular 3.46) EDT schwannoma SPINAL PUNCTURE, 04/11/2020 7:36 AM Vestibular THERAPEUTIC, FOR EDT schwannoma DRAINAGE OF CSF (LUMBAR DRAIN PLACEMENT) (WRVU 1.35) @CRANI-INFRATEMPORAL 04/11/2020 7:36 AM Vestibular APPROACH TO MIDDLE EDT schwannoma FOSSA (WRVU 47.04) MICROSCOPE USE Routine 04/11/2020 6:04 AM Vestibular EDT schwannoma LUMBAR DRAIN Routine 04/11/2020 6:04 AM Vestibular PLACEMENT EDT schwannoma CRANI-EXC ORRESECTION Routine 04/11/2020 6:04 AM Vestibular EXTRADURAL EDT schwannoma LESION-ANT. FOSSA CRANIECTOMY,TRANSTEMP Routine 04/11/2020 6:04 AM Vestibular ORAL- ACOUSTIC EDT schwannoma NEUROMA documented in this encounter Results (ABNORMAL) Differential, Automated (04/13/2020 12:00 AM EDT) [facility] Method Time Signature Neutrophils % 79.4 % [facility] Neutr Abs (ANC) 11.93 (H) 1.70 - [facility] 6.10 [facility] x10(3)/[facility] LABORATORY Lymphocytes % 12.3 % [facility] Lymphocytes Abs 1.8 0.9 - 3.2 [facility] x10(3)/[facility] LABORATORY Monocytes % 7.7 % [facility] Monocyte Abs 1.2 (H) 0.3 - 0.9 [facility] x10(3)/[facility] LABORATORY Eosinophils % 0.0 % [facility] Eosinophils Abs 0.0 0.0 - 0.4 [facility] x10(3)/[facility] LABORATORY Basophils % 0.1 % [facility] Basophils Abs 0.0 0.0 - 0.1 [facility] x10(3)/[facility] LABORATORY Immature Gran % 0.50 % [facility] Comment: Immature granulocytes(IG's)percentage an d absolute count will include metamyelocytes, myelocytes, and promyelo cytes. Blood smears from CBCs yielding IG's will be scanned manually for concor dance. If this scan disagrees with the automated IG or if promyelocytes are not ed, a manual differential will be performed. Lula Gran Abs 0.08 (H) 0.00 - 0.04 x10(3)/[facility] LABORATORY Specimen (Source) Anatomical Collection Method Collection Time Re ceived Time Location / / Volume Laterality Blood specimen 04/13/2020 04/13/2020 12 :12 (specimen) AM EDT Resulting Agency Comment Spec In Lab [facility] HEMATOLOGY ORDERABLES Performing Organization Address City/State/[place] [address] (ABNORMAL) Hemogram (04/13/2020 12:00 AM EDT) Analysis Performed At Patho logist Time Signature WBC 15.0 (H) 4.0 - 9.5 [facility] x10(3)/[facility] LABORATORY RBC 4.13 (L) 4.58 - [facility] 5.54 [facility] x10(6)/[facility] LABORATORY Hemoglobin 12.5 (L) 13.7 - [facility] 16.5 gm/dL [facility] LABOR[facility]ORY Hematocrit 36.6 (L) 40.5 - [facility] 48.5 % [facility] MCV 88.6 82.9 - [facility] 93.1 [facility] LABORATORY MCH 30.3 27.5 - [facility] 32.1 pg [facility] LABORATORY MCHC 34.2 32.0 - [facility] 35.7 gm/dL [facility] Platelets 177 145 - 357 [facility] x10(3)/[facility] LABORATORY RDWSD 40.2 36.0 - [facility] 45.0 [facility] LABORATORY RDWCV 12.4 11.4 - [facility] 13.8 % [facility] LABORATORY MPV 10.6 7.6 - 12.9 [facility] LABORATORY nRBC % Auto 0.0 % [facility] nRBC Abs Auto 0.000 0.000 - [facility] 0.000 [facility] x10(3)/[facility] LABORATORY Specimen (Source) Anatomical Collection Method Collection Time Re ceived Time Location / / Volume Laterality Blood specimen 04/13/2020 04/13/2020 12 :12 (specimen) AM EDT Resulting Agency Comment Spec In Lab [facility] HEMATOLOGY ORDERABLES Performing Organization Address City/State/[place] [address] Basic Metabolic Panel (non-fasting) (04/13/2020 12:00 AM EDT) P athologist Signature Glucose Lvl 114 65 - 199 [facility] mg/dL [facility] LAB[facility] Comment: Diabetes: >=200 mg/dL plus symp toms BUN 10 10 - 20 mg/dL [facility] LABOR[facility] Creatinine 0.81 0.80 - 1.50 mg/dL [facility] LABORATORY Sodium 140 135 - 145 mmol/L [facility] LABOR[facility] Potassium 4.1 3.5 - 5.0 mmol/L [facility] Comment: Please note: ??Patients with WBC >100,00 0 may have falsely elevated Potassium levels. ??For accurate Potassium quantif ication in these patients send serum separator tube (gold top) for subsequent determinations. ??Contact the Clinical Chemistry Laboratory if there are any qu estions. Chloride 101 98 - 107 mmol/L [facility] CO2 26 22 - 31 mmol/L [facility] Anion Gap 13 5 - 15 mmol/L [facility] Calcium 9.4 8.5 - 10.5 mg/dL [facility] LABORATORY Estimated GFR 113 >=60 mL/min/1.73 m?? [facility] Comment: The eGFR was calculated using the CKD-EP I equation. As with all creatinine based estimates of kidney function, eGFR values calculated with the CKD-EPI equation are not accurate in patients wi th acute kidney failure, extremes of body mass or the acutely ill. [email or web address] eGFR 131 >=60 mL/min/1.73 m?? [facility] Comment: The eGFR was calculated using the CKD-EP I equation. As with all creatinine based estimates of kidney function, eGFR values calculated with the CKD-EPI equation are not accurate in patients wi th acute kidney failure, extremes of body mass or the acutely ill. [email or web address] Specimen (Source) Anatomical Collection Method Collection Time Re ceived Time Location / / Volume Laterality Blood specimen 04/13/2020 04/13/2020 12 :12 (specimen) AM EDT Resulting Agency Comment Spec In Lab Tiki Jacobs MD CHEMISTRY ORDERABLES Performing Organization Address City/State/[place] [address] Head wo Contrast (Generic) (04/12/2020 5:29 AM EDT) Anatomical Region Laterality Modality Head Computed Tomography Specimen (Source) Anatomical Location Collection Method / Collectio n Time Received Time / Laterality Volume Impressions 04/12/2020 12:18 PM EDT Minimal blood products are demonstrated marginally around the resection cavity which is within the realm of expectation given recent surgery. I have personally reviewed the image(s) and the resident's interpretation and agree with the findings, Kobe Wiley MD at 04/12/2020 12:18 PM Thank you for letting us participate in the care of this patient. For questions regarding this report, please contact e number below. ? Electronically signed by: Kobe Wiley MD, [facility] ([phone]), at 04/12/2020 12:18 PM Narrative 04/12/2020 12:18 PM EDT EXAMINATION: CT HEAD WO CONTRAST (GENERIC) CLINICAL HISTORY: Headache, intracranial hemorrhage suspected s/p resection of acoustic neuroma with l umbar drain in place, severe SINCLAIR, concern for ?EDH/SDH TECHNIQUE: CT head performed without intravenous co ntrast administration. COMPARISON: MRI head performed on March 28, 2020 FINDINGS: There are interval post-surgical changes of left IAC neuroma resection via left craniotomy with associated fat packing.. Minimal hyper-attenuation blood products demonstrated marginally around the resection cavity. There is mild scalp swelling overlying the craniotomy site and soft tissue swelling and air and fluid projecting in the left mastica tor space.. Small volume pneumocephalus which is within the realm of expectation given recent surgery. No evidence of new mass or acute infarct. The ventricul ar size is normal. There is fluid attenuation in the left m iddle ear cavity and mastoids which is new compared to prior exam. Procedure Note Kobe Scott MD - 04/12/2020Formatt ing of this note might be different from the original. EXAMINATION: CT HEAD WO CONTRAST (GENERI C) CLINICAL HISTORY: Headache, intracranial hemorrhage suspected s/p resection of acoustic neuroma with l umbar drain in place, severe SINCLAIR, concern for ?EDH/SDH TECHNIQUE: CT head performed without intravenous co ntrast administration. COMPARISON: MRI head performed on March 28, 2020 FINDINGS: There are interval post-surgical changes of left IAC neuroma resection via left craniotomy with associated fat packing.. Minimal hyper-attenuation blood products demonstrated marginally around the resection cavity. There is mild scalp swelling overlying the craniotomy site and soft tissue swelling and air and fluid projecting in the left mastica tor space.. Small volume pneumocephalus which is within the realm of expectation given recent surgery. No evidence of new mass or acute infarct. The ventricul ar size is normal. There is fluid attenuation in the left m iddle ear cavity and mastoids which is new compared to prior exam. IMPRESSION Minimal blood products are demonstrated marginally around the resection cavity which is within the realm of expectation given recent surgery. I have personally reviewed the image(s) and the resident's interpretation and agree with the findings, Kobe Wiley MD at 04/12/2020 12:18 PM Thank you for letting us participate in the care of this patient. For questions regarding this report, please contact e number below. Electronically signed by: Kobe Wiley MD, [facility] ([phone]), at 04/12/2020 12:18 PM Desiree Sood [employer] IMG CT ORDERABLES (ABNORMAL) Differential, Automated (04/12/2020 1:44 AM EDT) [facility] Method Time Signature Neutrophils % 85.8 % [facility] Neutr Abs (ANC) 15.13 (H) 1.70 - [facility] 6.10 [facility] x10(3)/[facility] LABORATORY Lymphocytes % 7.8 % [facility]ORY Lymphocytes Abs 1.4 0.9 - 3.2 [facility] x10(3)/[facility] LABORATORY Monocytes % 5.2 % [facility] LAB[facility]ORY Monocyte Abs 0.9 0.3 - 0.9 [facility] x10(3)/[facility] LABORATORY Eosinophils % 0.0 % [facility] Eosinophils Abs 0.0 0.0 - 0.4 [facility] x10(3)/[facility] LABORATORY Basophils % 0.1 % [facility] LABORATORY Basophils Abs 0.0 0.0 - 0.1 [facility] x10(3[facility] LABORATORY Immature Gran % 1.10 % [facility] LABOR[facility]ORY Comment: Immature granulocytes(IG's)percentage an d absolute count will include metamyelocytes, myelocytes, and promyelo cytes. Blood smears from CBCs yielding IG's will be scanned manually for concor dance. If this scan disagrees with the automated IG or if promyelocytes are not ed, a manual differential will be performed. Lula Gran Abs 0.19 (H) 0.00 - 0.04 x10(3)/[facility] LABORATORY Specimen Anatomical Collection Method Collection Time Receive d Time (Source) Location / / Volume Laterality Blood specimen 04/12/2020 1:44 AM 020 1:49 (specimen) EDT AM EDT Resulting Agency Comment Spec In Lab Kobe Reynoso MD HEMATOLOGY ORDERABLES Performing Organization Address City/State/ZIP Code Phon e Number [place] [id number] LAB[address]ORY [address] (ABNORMAL) Hemogram (04/12/2020 1:44 AM EDT) Analysis Performed At Patho logist Time Signature WBC 17.6 (H) 4.0 - 9.5 [facility] x10(3)/[facility] LABORATORY RBC 4.23 (L) 4.58 - [facility] 5.54 [facility] x10(6)/[facility] LABORATORY Hemoglobin 12.6 (L) 13.7 - [facility] 16.5 gm/dL [facility] LABORATORY Hematocrit 37.0 (L) 40.5 - [facility] 48.5 % [facility] LABORATORY MCV 87.5 82.9 - [facility] 93.1 [facility] LABORATORY MCH 29.8 27.5 - [facility] 32.1 pg [facility] LABORATORY MCHC 34.1 32.0 - [facility] 35.7 gm/dL [facility] LABOR[facility]ORY Platelets 207 145 - 357 [facility] x10(3)/[facility] LABORATORY RDWSD 39.2 36.0 - [facility] [place] 45.0 [facility] LABORATORY RDWCV 12.2 11.4 - [facility] [place] 13.8 % [facility] LABORATORY MPV 10.4 7.6 - 12.9 [facility] LABORATORY nRBC % Auto 0.0 % [facility] LABORATORY nRBC Abs Auto 0.000 0.000 - [facility] 0.000 [facility] x10(3)/[facility] LABORATORY Specimen Anatomical Collection Method Collection Time Receive d Time (Source) Location / / Volume Laterality Blood specimen 04/12/2020 1:44 AM 020 1:49 (specimen) EDT AM EDT Resulting Agency Comment Spec In Lab Kobe Reynoso MD HEMATOLOGY ORDERABLES Performing Organization Address City/State/[place] [address] Basic Metabolic Panel (non-fasting) (04/12/2020 1:44 AM EDT) P athologist Signature Glucose Lvl 150 65 - 199 [facility] mg/dL [facility] LABORATORY Comment: Diabetes: >=200 mg/dL plus symp toms BUN 14 10 - 20 mg/dL [facility] LABORATORY Creatinine 0.85 0.80 - 1.50 mg/dL [facility] LABORATORY Sodium 140 135 - 145 mmol/L [facility] LABORATORY Potassium 4.1 3.5 - 5.0 mmol/L [facility] LABORATORY Comment: Please note: ??Patients with WBC >100,00 0 may have falsely elevated Potassium levels. ??For accurate Potassium quantif ication in these patients send serum separator tube (gold top) for subsequent determinations. ??Contact the Clinical Chemistry Laboratory if there are any qu estions. Chloride 105 98 - 107 mmol/L [facility] LABORATORY CO2 22 22 - 31 mmol/L [facility] LABORATORY Anion Gap 13 5 - 15 mmol/L [facility] LABORATORY Calcium 9.3 8.5 - 10.5 mg/dL [facility] LABORATORY Estimated GFR 111 >=60 mL/min/1.73 m?? [facility] LABORATORY Comment: The eGFR was calculated using the CKD-EP I equation. As with all creatinine based estimates of kidney function, eGFR values calculated with the CKD-EPI equation are not accurate in patients wi th acute kidney failure, extremes of body mass or the acutely ill. [email or web address] eGFR 128 >=60 mL/min/1.73 m?? [facility] LABORATORY Comment: The eGFR was calculated using the CKD-EP I equation. As with all creatinine based estimates of kidney function, eGFR values calculated with the CKD-EPI equation are not accurate in patients wi th acute kidney failure, extremes of body mass or the acutely ill. [email or web address] Specimen Anatomical Collection Method Collection Time Receive d Time (Source) Location / / Volume Laterality Blood specimen 04/12/2020 1:44 AM 020 1:49 (specimen) EDT AM EDT Resulting Agency Comment Spec In Lab Tiki Jacobs MD CHEMISTRY ORDERABLES Performing Organization Address City/[facility]/ZIP [facility] [place] [address] POCT Glucose (04/11/2020 2:02 PM EDT) P athologist Signature POC Glucose 105 65 - 199 [facility] mg/dL [facility] LABORATORY Comment: Supplemental ranges: <140 mg/dL before meals <180 mg/dL all other times of the day Specimen Anatomical Collection Method Collection Time Receive d Time (Source) Location / / Volume Laterality Blood specimen 04/11/2020 2:02 PM 020 2:02 (specimen) EDT PM EDT Tiki Jacobs MD POINT OF CARE TEST ORDERABLE S Performing Organization Address City/State/[place] [address] Specimen to Pathology (04/11/2020 12:26 PM EDT) Specimen Anatomical Collection Method Collection Time Receive d Time (Source) Location / / Volume Laterality AP Specimen 04/11/2020 12:26 04/11/2020 PM EDT 12:26 PM EDT Narrative [facility] LABORAT ORY - 04/11/2020 12:26 PM EDT Specimen requisition ordered. ??Separate Pathology report to follow Tiki Jacobs MD PATHOLOGY/CYTOLOGY ORDERABLE S Performing Organization Address City/State/ZIP Code [place] [address] [facility] LAB[address]ATORY Drive Surgical Pathology Report (04/11/2020 11:43 AM EDT) Component Value Ref Test Analysis Performed At [facility] gist Range Method Time Signature Surgical [id number] ? Location: [facility]; FOR[facility]LY [facility], [facility]; A IESHA Pathology STOW Report The signing pathologist has (i) examined the relevant preparation(s) for the [facility]ORIAL specimen(s) and (ii) rendered or confirmed the diagnosis(es) . HOSPITAL LABORATORY . ?Surgic al Pathology DIAGNOSIS SCHWANNOMA, WHO GRADE 1 Electronically signed by: ??Jhony Su MD Verified: ??04/17/2020 ?Pathologist Performed at: ??-[facility] Dept. of Pathology, [place], [place] SYNOPTIC none DISCUSSION Hematoxylin and eosin-staine d sections of the specimens show ? a spindle cell neoplasm with areas of denser cellularity (Carlos A) alternati ng with areas of lower cellularity (Carlos B). Effie ocay bodies are seen in Carlos A areas. The cells have fibrillar eosinophilic cyto plasm and bland elongated nuclei. Few cells with large irregular nuclei are noted. No mitotic figures or necrosis is evident. ADDITIONAL STUDIES none SPECIMEN(S) SUBMITTED A - IAC tumor, excision (1) B - I.A.C. tumor, excision (1) CLINICAL INFORMATION Vestibular schwannoma SPECIMEN PROCESSING A - Labeled/Fixative: IAC tumor, fresh for frozen section. Quantity/Size: Fragments, aggregating 0.8 x 0.6 x 0.3 cm. Tissue Description: [address]-yellow soft tissue. Sections/Processing: Touch prep(s) are prepared. The following tissue is submitted for frozen section: Entire ly submitted. Entirely submitted in 1 cassette labeled A1. B - Labeled/Fixative: IAC tumor, fresh. Quantity/Size: Fragments, aggregating 0.9 x 0.6 x 0.3 cm. Tissue Description: Irregular fragments of daniel-pink soft tis martha. Sections/Processing: Entirely submitted in 1 cassette labeled B1. ??PPS ?Fro roger Section FROZEN SECTION DIAGNOSIS (A-FS1) Smear and frozen section preparations on an IAC tumo r: SCHWANNOMA . FROZEN SECTION DIAGNOSIS Results phoned to Dr. Jacobs on 04/11/20 at 12:05 PM. Electronically signed by: ??Jhony Su MD Verified: ??04/11/2020 ?Pathologist Performed at: ??-[facility] Dept. of Pathology, [place], [place] This intraoperative consultation should be interpreted as a preliminary diagnosis pending review of the entire specimen and sp ecial studies, if any. Specimen (Source) Anatomical Collection Method Collection Time Re ceived Time Location / / Volume Laterality 04/11/2020 11:43 AM EDT Tiki Jacobs MD PATHOLOGY/CYTOLOGY ORDERABLE S Performing Organization Address City/[facility]/[place] [address] Specimen to Pathology (04/11/2020 11:43 AM EDT) Specimen Anatomical Collection Method Collection Time Receive d Time (Source) Location / / Volume Laterality AP Specimen 04/11/2020 11:43 04/11/2020 AM EDT 11:43 AM EDT Narrative [facility] LABORAT ORY - 04/11/2020 11:43 AM EDT Specimen requisition ordered. ??Separate Pathology report to follow Tiki Jacobs MD PATHOLOGY/CYTOLOGY ORDERABLE S Performing Organization Address [facility]/ZIP [facility] [place] [address] (ABNORMAL) BLOOD GAS 2 ARTERIAL (04/11/2020 10:27 AM EDT) Analysis Performed At Patho logist Time Signature pH Art 7.45 7.35 - [facility] 7.45 [facility] LABORATORY pCO2 Art 33 (L) 35 - 45 [facility] mmHg [facility] LABORATORY pO2 Art 306 (H) 85 - 104 [facility] LABORATORY HCO3 Art 22.8 20.0 - [facility] 26.0 [facility] mmol/L [facility] LABORATORY BE Art -1.6 -3.0 - 3.0 [facility] mmol/L [facility] LABORATORY Hgb Blood Gas 13.6 (L) 13.7 - [facility] 16.5 gm/dL [facility] LABORATORY O2HB Art 98.9 (H) 94.0 - [facility] 97.0 % [facility] LABORATORY COHB Art 0.4 % [facility] LABORATORY Comment: Nonsmokers: 0.5-1.5% COHB Smokers: Variable, but usually less than 10% Toxic: 20-30% COHB Lethal: Greater than 60% COHB METHB Art 0.3 <=1.5 % [facility] LABORATORY Na Whole Blood 139 135 - 145 mmol/L [facility]OR[facility] K Whole Blood 4.1 3.5 - 5.0 mmol/L [facility] LABORATORY Comment: Please note: Patients with WBC >100,000 may have falsely elevated Potassium levels. Contact the Clinical Chemistry L aboratory if there are any questions. ICa Whole Blood 1.20 1.15 - 1.33 mmol/L [facility] LABORATORY Comment: Note: ??Total bilirubin higher than 20 m g/dL may lead to falsely low ionized calcium. CL Whole Blood 111 (H) 98 - 107 mmol/L [facility] LABORATORY Gluc Whole Bld 108 65 - 199 mg/dL [facility] LABORATORY Comment: Diabetes: >=200 mg/dL plus symp toms. Lactate WB 1.4 0.5 - 2.2 mmol/L [facility] LABORATORY FIO2 Art 56 % [facility] LABORATORY Flow Art 1.0 LPM [facility] LABORATORY PF Ratio Art 546 [facility] LABORATORY Temp Art 35.3 Celsius [facility] LABORATORY Specimen Anatomical Collection Method Collection Time Receive d Time (Source) Location / / Volume Laterality Blood specimen 04/11/2020 10:27 0 (specimen) AM EDT 10:27 AM EDT Tiki Jacobs MD CHEMISTRY ORDERABLES Performing Organization Address City/State/[place] [address] (ABNORMAL) BLOOD GAS 2 ARTERIAL (04/11/2020 8:38 AM EDT) P athologist Signature pH Art 7.44 7.35 - 7.45 [facility] LABORATORY pCO2 Art 32 (L) 35 - 45 [facility] LABORATORY pO2 Art Not Perf 85 - 104 [facility] LABORATORY Comment: instrument error HCO3 Art 21.8 20.0 - 26.0 mmol/L [facility] LABORATORY BE Art -2.6 -3.0 - 3.0 mmol/L [facility] LABORATORY Hgb Blood Gas 13.9 13.7 - 16.5 gm/dL [facility] LABORATORY O2HB Art 99.2 (H) 94.0 - 97.0 % [facility] LABORATORY COHB Art 0.3 % [facility] LABORATORY Comment: Nonsmokers: 0.5-1.5% COHB Smokers: Variable, but usually less than 10% Toxic: 20-30% COHB Lethal: Greater than 60% COHB METHB Art 0.3 <=1.5 % [facility] LABORATORY Na Whole Blood 136 135 - 145 mmol/L [facility]OR[facility] K Whole Blood 4.2 3.5 - 5.0 mmol/L [facility] LABORATORY Comment: Please note: Patients with WBC >100,000 may have falsely elevated Potassium levels. Contact the Clinical Chemistry L aboratory if there are any questions. ICa Whole Blood 1.18 1.15 - 1.33 mmol/L [facility] LABORATORY Comment: Note: ??Total bilirubin higher than 20 m g/dL may lead to falsely low ionized calcium. CL Whole Blood 108 (H) 98 - 107 mmol/L [facility] LABORATORY Gluc Whole Bld 93 65 - 199 mg/dL [facility] LABORATORY Comment: Diabetes: >=200 mg/dL plus symp toms. Lactate WB 1.5 0.5 - 2.2 mmol/L [facility] LABORATORY FIO2 Art 95 % [facility] LABORATORY Flow Art 1.0 LPM [facility] LABOR[facility]ORY Temp Art 35.7 Celsius [facility] LABORATORY Specimen Anatomical Collection Method Collection Time Receive d Time (Source) Location / / Volume Laterality Blood specimen 04/11/2020 8:38 AM 020 8:38 (specimen) EDT AM EDT Tiki Jacobs MD CHEMISTRY ORDERABLES Performing Organization Address City/State/[place] [address] documented in this encounter Visit Diagnoses Diagnosis 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 documented in this encounter Admitting Diagnoses Diagnosis 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 documented in this encounter Administered Medications Inactive Administered Medications - up to 3 most recent administrations Medication Order MAR Action Action Date Dose Rate Site acetaminophen (OFIRMEV) Given 04/11/2020 6:18 PM 1,000 mg 400 mL/hr injection 1,000 mg EDT 1,000 mg, Intravenous, at 400 mL/hr, EVERY 8 HOURS SCHEDULED, 3 doses, First dose on Wed04/11/20 at 1830, Last dose on Wed04/12/20 at 1100, Maximum dose of acetaminophen is 4000 mg from all sources in 24 hours., Routine acetaminophen (OFIRMEV) injection Given 04/12/2020 5:06 PM E DT 1,000 mg 400 mL/hr 1,000 mg 1,000 mg, Intravenous, at 400 mL/hr, EVERY 6 HOURS SCHEDULED, 4 doses, First dose (after last modification) on Wed04/12/20 at 0000, Last dose on Wed04/12/20 at 1800, Maximum dose of acetaminophen is 4000 mg from all sources in 24 hours., Routine Given 04/12/2020 11:24 AM EDT 1,000 mg 400 mL/hr Given 04/12/2020 5:42 AM EDT 1,000 mg 400 mL/hr acetaminophen (Tylenol) tablet 1,000 mg Given 04/11/2020 6:23 AM EDT 1,000 mg 1,000 mg, Oral, ONCE, 1 dose, On Wed04/11/20 at 0645, Maximum dose of acetaminophen is 4000 mg from all sources in 24 hours., Day of Surgery (Day of Procedure), Routine acetaminophen (Tylenol) tablet 650 mg Given 04/11/2020 4:40 PM EDT 650 mg 650 mg, Oral, EVERY 4 HOURS PRN, Starting on Jessica 04/11/20 at 1400, Until Jessica 04/11/20 at 1738, Pain, Mild pain (1-3), Do not exceed 4000 mg acetaminophen per day., Routine acetaminophen (Tylenol) tablet 650 mg Given 04/13/2020 3:10 PM EDT 650 mg 650 mg, Oral, EVERY 4 HOURS PRN, Starting on Wed04/12/20 at 1733, Until 04/13/20 at 2020, Pain, Fever, Headaches, Maximum dose of acetaminophen is 4000 mg from all sources in 24 hours., Routine Given 04/13/2020 10:53 AM EDT 650 mg Given 04/13/2020 6:32 AM EDT 650 mg carboxymethylcellulose (REFRESH PLUS) 0.5 % Given 04/13/2020 4:18 PM EDT 1 drop ophthalmic drops 1 drop 1 drop, Left Eye, 4 TIMES DAILY, First dose on Jessica 04/11/20 at 2100, Until Discontinued, Routine Given 04/13/2020 12:10 PM EDT 1 drop Given 04/13/2020 8:47 AM EDT 1 drop dexamethasone (Decadron) injection 4 mg Given 04/12/2020 12:24 AM EDT 4 mg 4 mg, Intravenous, EVERY 6 HOURS SCHEDULED, 4 doses, First dose on Wed04/11/20 at 1830, Last dose on Wed04/12/20 at 1200 Given 04/11/2020 6:21 PM EDT 4 mg dexamethasone (Decadron) tablet 4 mg Given 04/12/2020 5:06 PM EDT 4 mg 4 mg, Oral, EVERY 6 HOURS SCHEDULED, 8 doses, First dose on Wed04/12/20 at 1200, Last dose on Wed04/14/20 at 0600, Routine Given 04/12/2020 11:24 AM EDT 4 mg diphenhydrAMINE (BENADRYL) injection 10 mg Given 04/11/2020 8:58 PM EDT 10 mg 10 mg, Intravenous, ONCE, 1 dose, On Wed04/11/20 at 2045, Routine eplerenone (Inspra) tablet 25 mg Given 04/13/2020 8:48 AM EDT 25 mg 25 mg, Oral, 2 TIMES DAILY, First dose on Wed04/11/20 at 2100, Until Discontinued, Routine Given 04/12/2020 8:46 PM EDT 25 mg Given 04/12/2020 8:26 AM EDT 25 mg HYDROmorphone (DILAUDID) 1 mg/mL injecti on 1 dose, Starting on Wed04/11/20 at 2237, Until 03/15 at 2245, Emeka Copeland: cabinet override HYDROmorphone (DILAUDID) 2 mg/mL injecti on Given 04/11/2020 2:29 PM EDT 0.2 mg 1 dose, Starting on Wed04/11/20 at 1421, Until Wed04/11/20 at 1429, ELSA NICK (): cabinet override HYDROmorphone (DILAUDID) injection 0.2 m g Given 04/11/2020 8:08 PM EDT 0.2 mg 0.2 mg, Intravenous, ONCE, 1 dose, On Wed04/11/20 at 204, May give an additional 0.2 mg in 30 minutes once if pain not relieved., Routine HYDROmorphone (DILAUDID) injection 0.2 m g Given 04/11/2020 10:45 PM EDT 0.2 mg 0.2 mg, Intravenous, EVERY 4 HOURS PRN, Starting on Wed04/11/20 at 2243, Until Wed04/12/20 at 0116, Pain, Routine HYDROmorphone (DILAUDID) injection 0.2 m g Given 04/12/2020 8:21 AM EDT 0.2 mg 0.2 mg, Intravenous, EVERY 2 HOURS PRN, 3 doses, Starting on Wed04/12/20 at 0130, Until Wed04/12/20 at 0821, Pain, Routine Given 04/12/2020 5:40 AM EDT 0.2 mg Given 04/12/2020 1:32 AM EDT 0.2 mg HYDROmorphone (DILAUDID) injection 0.5 m g Given 04/11/2020 2:58 PM EDT 0.5 mg 0.5 mg, Intravenous, ONCE, 1 dose, On Wed04/11/20 at 1545, STAT HYDROmorphone (Dilaudid) tablet 2 mg Given 04/13/2020 5:22 PM EDT 2 mg 2 mg, Oral, EVERY 4 HOURS PRN, Starting on Wed04/12/20 at 0114, Until 04/13/20 at 2020, Pain, May give an additional 2 mg once if pain not relieved in 30-60 minutes., Routine Given 04/13/2020 1:44 PM EDT 2 mg Given 04/13/2020 8:51 AM EDT 2 mg lactated ringers infusion New Bag 04/11/2020 7:36 AM EDT 1,000 mL, at 100 mL/hr, Intravenous, CONTINUOUS, Starting on Jessica 04/11/20 at 0645, Until Wed04/11/20 at 1400, Day of Surgery (Day of Procedure) New Bag 04/11/2020 6:29 AM EDT 1,000 mLs 100 mL/hr lidocaine (XYLOCAINE) 10 mg/mL (1 %) injection Given 0 04/12/2020 4:55 PM EDT 50 mg 50 mg 50 mg (5 mL), Subcutaneous, ONCE PRN, 1 dose, Starting on Wed04/12/20 at 1128, Until Wed04/12/20 at 1655, for lumbar drain removal, Routine LORazepam (ATIVAN) 2 mg/mL injection 1 dose, Starting on Wed04/12/20 at 0148, Until 03/15 at 0150, Emeka Copeland: cabinet override LORazepam (ATIVAN) injection 1 mg Given 04/12/2020 1:50 AM EDT 1 mg 1 mg, Intravenous, ONCE, 1 dose, On Wed04/12/20 at 0245, Routine melatonin tablet 6 mg Given 04/12/2020 9:33 PM EDT 6 mg 6 mg, Oral, NIGHTLY, First dose on Wed04/12/20 at 2200, Until Discontinued, Routine metoclopramide (REGLAN) injection 10 mg Given 04/12/2020 10:43 AM EDT 10 mg 10 mg, Intravenous, EVERY 6 HOURS PRN, Starting on Wed04/11/20 at 1400, Until 04/13/20 at 2020, Nausea, If multiple antiemetics are ordered, use ondansetron first, prochlorperazine second, and metaclopramide third. Given 04/12/2020 1:34 AM EDT 10 mg ondansetron (ZOFRAN) injection 4-8 mg Given 04/13/2020 5:22 PM EDT 4 mg 4-8 mg, Intravenous, EVERY 8 HOURS PRN, Starting on Jessica 04/11/20 at 1400, Until 04/13/20 at 2020, Nausea, If multiple antiemetics are ordered, use ondansetron first, prochlorperazine second, and metaclopramide third. Start with 4mg and if ineffective in 30 minutes, give an additional 4mg Given 04/12/2020 9:54 AM EDT 8 mg Given 04/11/2020 7:38 PM EDT 4 mg ondansetron (Zofran) tablet 4-8 mg 4-8 mg, Oral, EVERY 8 HOURS PRN, Startin g on Jessica 04/11/20 at 1400, Until 04/13/20 at 2020, Nausea, Vomiting, If multipl e antiemetics are ordered, use ondansetron first, prochlorperazine second, and metaclopramide thi rd. PO Preferred. If patient unable to take PO, may give IV if ordered. Sta rt with 4mg and if ineffective in 45 minutes, give an additional 4mg, Rou sharee oxyCODONE (Roxicodone) tablet 10-15 mg Given 04/11/2020 9:51 PM EDT 10 mg 10-15 mg, Oral, EVERY 4 HOURS PRN, Starting on Jessica 04/11/20 at 1400, Until Wed04/12/20 at 0115, Pain, severe pain (7-10), Initial dose 10mg. If pain control not adequet in 60 minutes, give additional 5mg., Routine pantoprazole (PROTONIX) injection 40 mg 40 mg, Intravenous, DAILY, First dose on Jessica 04/11/20 at 1500, Until Discontinued, Reconstitute with 10 mL of normal saline to a concentration of 4 mg/mL and infuse slowly over 2 minutes. , Routine pantoprazole EC (Protonix) tablet 40 mg Given 04/13/2020 8:48 AM EDT 40 mg 40 mg, Oral, DAILY, First dose on Jessica 04/11/20 at 1500, Until Discontinued, DO NOT CRUSH OR OPEN If unable to take PO, may give IV, Routine Given 04/12/2020 8:21 AM EDT 40 mg scopolamine Patch Applied 04/11/2020 7:25 AM 1 patch 02 - Ear Behind (TRANSDERM-SCOP) 1 mg over EDT (Right) 3 days patch 1 patch 1 patch, Transdermal, ONCE, 1 dose, On Wed04/11/20 at 0745, Day of Surgery (Day of Procedure), Routine scopolamine Patch Applied 04/11/2020 8:06 PM 1 patch 01 - Ear Behind (TRANSDERM-SCOP) 1 mg over EDT (Left) 3 days patch 1 patch 1 patch, Transdermal, EVERY 72 HOURS, First dose on Wed04/11/20 at 2045, Until Discontinued, Routine scopolamine (TRANSDERM-SCOP) 1 mg patch Patch Removal Transdermal, EVERY 72 HOURS, First dose on Wed04/14/20 at 1945, Until Discontinued, Remove scopolamine 1 mg patch scopolamine (TRANSDERM-SCOP) 1 mg patch Patch Verification Transdermal, 2 TIMES DAILY, First dose o n 04/12/20 at 0745, Until Discontinued, Verify scopolamine 1 mg patch. senna-docusate (Pericolace) 8.6-50 mg per Given 2019 8:51 AM EDT 2 tablets tablet 2 tablet 2 tablet, Oral, 2 TIMES DAILY, First dose on Jessica 04/11/20 at 2100, Until Discontinued, Routine sodium chloride 0.9% 1,000 mL IV bolus New Bag 04/11/2020 8:11 PM EDT 999 mL/hr Intravenous, ONCE, 1 dose, On Jessica 04/11/20 at 2045 sodium chloride 0.9% 500 mL IV bolus New Bag 04/11/2020 4:31 PM EDT Intravenous, ONCE, 1 dose, On Jessica 04/11/20 at 1615 white petrolatum-mineral oil ophthalmic ointment 1 each, Left Eye, ONCE, On 04/13/20 at 2100, 1 dose, Nightly documented in this encounter Active and Recently Administered Medications Times are shown in EDT. Scheduled Medication Order 04/11/2020 04/12/2020 04/13/2020 acetaminophen (OFIRMEV) injection 1,000 mg (CANCELED) 1817 (Given - Provider: Elsa Nick, MICHAEL) 1,000 mg, Intravenous, at 400 mL/hr, URMILA RY 8 HOURS SCHEDULED, 3 doses, First dose on Wed04/11/20 at 1830, Last dose on Wed04/12/20 at 1100, Maximum dose of acetaminophen is 4000 mg from all sources in 24 hours., Routine acetaminophen (OFIRMEV) injection 1,000 mg (COMPLETED) 0023 (Given - Provider: Emeka Copeland, RN)0542 (Given - Provider: Obi Menendez, MICHAEL)1124 (Given - Provider: Meggan Minaya, MICHAEL)1706 (Given - Provider: Meggan Minaya RN) 1,000 mg, Intravenous, at 400 mL/hr, URMILA RY 6 HOURS SCHEDULED, 4 doses, First dose (after last modification) on Wed04/12/20 at 0000, Last dose on Wed04/12/20 at 1800, Maximum dose of acetaminophen is 4000 mg from all sources in 24 hours., Routine acetaminophen (Tylenol) tablet 1,000 mg (COMPLETED) 03 05 (Given - Provider: Nuris Urban RN) 1,000 mg, Oral, ONCE, 1 dose, Wed 0 at 0645, Maximum dose of acetaminophen is 4000 mg from all sources in 24 hours., Day of Surgery (Day of Procedure), Routine carboxymethylcellulose (REFRESH PLUS) 0.5 % ophthalmic drops 1 drop 2151 (Given - Provider: Emeka Copeland RN) 0900 (Given - Provider: Meggan Minaya RN)1300 (Not Given - Provider: Meggan Minaya RN - Reason: Patient/family refused)1700 (Not Given - Provider: Meggan Minaya RN - Reason: Patient/family refused) 0847 (Given - Provider: Carol Mensah RN)1210 (Given - Provider: Carol Mensah RN)1618 (Given - Provider: Carol Mensah RN) 1 drop, Left Eye, 4 TIMES DAILY, First d ose on Wed04/11/20 at 2100, Until Discontinued, Routine 2100 (Not Given - Provider: Jelly Crenshaw RN - Reason: Patient/family refused) ceFAZolin (Ancef) 2g in dextrose 5% 100 mL (COMPLETED) 0754 (Given - Provider: Dylan Gomez CRNA - Comment: test dose)1147 (Given - Provider: Dylan Gomez CRNA) 2 g, Intravenous, ONCE, 1 dose, Jessica 04/11 at 0745, Administer over 30 Minutes, Day of Surgery (Day of Procedure), Indication for (Active or Suspected): Prophylaxis dexamethasone (Decadron) injection 4 mg (CANCELED) 182 1 (Given - Provider: Elsa Nick RN) 0024 (Given - Provider: Emeka Copeland RN) 4 mg, Intravenous, EVERY 6 HOURS SCHEDUL ED, 4 doses, First dose on Wed04/11/20 at 1830, Last dose on Wed04/12/20 at 1200 dexamethasone (Decadron) tablet 4 mg (CANCELED) 1124 (Given - Provider: Meggan Minaya RN)1706 (Given - Provider: Meggan Minaya RN) 4 mg, Oral, EVERY 6 HOURS SCHEDULED, 8 d oses, First dose on Wed04/12/20 at 1200, Last dose on Wed04/14/20 at 0600, Routine diphenhydrAMINE (BENADRYL) injection 10 mg (COMPLETED) 2057 (Given - Provider: Emeka Copeland RN) 10 mg, Intravenous, ONCE, 1 dose, Jessica 04/11/20 at 2044, Routine eplerenone (Inspra) tablet 25 mg 2099 (Hold - Provider : Emeka Copeland RN - Reason: Per MD Order - Comment: Per [facility] ED) 08 (Given - Provider: Meggan Minaya RN)2045 (Given - Provider: Jelly Crenshaw, RN) 0848 (Given - Provider: Carol Mensah RN) 25 mg, Oral, 2 TIMES DAILY, First dose o n Jessica 04/11/20 at 2100, Until Discontinued, Routine HYDROmorphone (DILAUDID) injection 0.2 mg (COMPLETED) 2007 (Given - Provider: Jelly Crenshaw RN) 0.2 mg, Intravenous, ONCE, 1 dose, Jessica at 2044, May give an additional 0.2 mg in 30 minutes once if pain not relieved., Routine HYDROmorphone (DILAUDID) injection 0.5 mg (COMPLETED) 1458 (Given - Provider: Elsa Nick RN) 0.5 mg, Intravenous, ONCE, 1 dose, Wed04/11/20 at 1545, STAT LORazepam (ATIVAN) injection 1 mg (COMPLETED) 0150 (Given - Provider: Emeka Copeland, MICHAEL) 1 mg, Intravenous, ONCE, 1 dose, Wed04/12/20 at 0245, Routine melatonin tablet 6 mg 2133 (Given - Provider: Me mark Crenshaw, MICHAEL) 6 mg, Oral, NIGHTLY, First dose on Wed at 2200, Until Discontinued, Routine pantoprazole (PROTONIX) injection 40 mg(Linked Group 1 ) 1500 (Not Given - Provider: Elsa Nick RN - Reason: See comment) 0821 (See Alternative - Provider: Meggan Minaya RN) 0848 (See Alternative - Provider: Carol Mensah RN) 40 mg, Intravenous, DAILY, First dose on Wed04/11/20 at 1500, Until Discontinued, Reconstitute with 10 mL of normal saline to a concentration of 4 mg/mL and infuse slowly over 2 minutes. , Routine pantoprazole EC (Protonix) tablet 40 mg(Linked Group 1 ) 1500 (See Alternative - Provider: Elsa Nick RN) 0821 (Given - Provider: Meggan Minaya RN) 0848 (Given - Provider: Carol Mensah RN) 40 mg, Oral, DAILY, First dose on Wed at 1500, Until Discontinued, DO NOT CRUSH OR OPEN If unable to take PO, may give IV, Routine scopolamine (TRANSDERM-SCOP) 1 mg over 3 days patch 1 patch (COMPLETED) 724 (Patch Applied - Provider: Nuris Urban RN) 1 patch, Transdermal, ONCE, 1 dose, Wed04/11/20 at 0745, Day of Surgery (Day of Procedure), Routine scopolamine (TRANSDERM-SCOP) 1 mg over 3 days patch 1 patch(Linked Group 2) 2005 (Patch Applied - Provider: Jelly Crenshaw RN) 1 patch, Transdermal, EVERY 72 HOURS, Fi rst dose on Wed20 at 2045, Until Discontinued, Routine scopolamine (TRANSDERM-SCOP) 1 mg patch Patch Removal(Linked Jessica up 2) Transdermal, EVERY 72 HOURS, First dose on 04/14/20 at 1945, Until Discontinued, Remove scopolamine 1 mg patch scopolamine (TRANSDERM-SCOP) 1 mg patch Patch Verification(L inked Group 2) 0745 (Patch (dose and location) verified - Provider: Meggan Minaya RN)2099 (Patch (dose and location) verified - Provider: Jelly Crenshaw RN - Comment: left ear) 0900 (Patch (dose and location) verified - Provider: Carol Mensah, MICHAEL) Transdermal, 2 TIMES DAILY, First dose o n 04/12/20 at 0745, Until Discontinued, Verify scopolamine 1 mg patch. senna-docusate (Pericolace) 8.6-50 mg per tablet 2 tab let 2099 (Hold - Provider: Emeka Copeland RN - Reason: See comment - Comment: N/V) 0900 (Not Given - Provider: Meggan Minaya RN - Reason: Patient/family refused)2100 (Not Given - Provider: Jelly Crenshaw RN - Reason: Patient/family refused) 0851 (Given - Provider: Carol Mensah, MICHAEL) 2 tablet, Oral, 2 TIMES DAILY, First dos e on Jessica 04/11/20 at 2100, Until Discontinued, Routine sodium chloride 0.9% 1,000 mL IV bolus (COMPLETED) 201 1 (New Bag - Provider: Jelly Crenshaw RN) Intravenous, ONCE, 1 dose, Jessica 04/11/20 at 2045 sodium chloride 0.9% 500 mL IV bolus (COMPLETED) 1631 (New Bag - Provider: Elsa Nick RN) Intravenous, ONCE, 1 dose, Jessica 04/11/20 at 1615 white petrolatum-mineral oil ophthalmic ointment 1 each, Left Eye, ONCE, 04/13/20 at 2100, 1 dose, Nightly Continuous Medication Order 04/11/2020 04/12/2020 04/13/2020 lactated ringers infusion (CANCELED) 0629 (New Bag - P rovider: Nuris Urban RN)0736 (New Bag - Provider: Dylan Gomez CRNA)0847 (Anesthesia Volume Adjustment - Provider: Dylan Gomez CRNA)1114 (Anesthesia Volume Adjustment - Provider: Dylan Gomez CRNA) 1,000 mL, at 100 mL/hr, Intravenous, CON TINUOUS, Starting Jessica 04/11/20 at 0645, Until Jessica 04/11/20 at 1400, Day of Surgery (Day of Procedure) PRN Medication Order 04/11/2020 04/12/2020 04/13/2020 acetaminophen (Tylenol) tablet 650 mg (CANCELED) 1640 (Given - Provider: Elsa Nick RN) 650 mg, Oral, EVERY 4 HOURS PRN, Startin g Jessica 04/11/20 at 1400, Until Jessica 04/11/20 at 1738, Pain, Mild pain (1-3), Do not exceed 4000 mg acetaminophen per day., Routine acetaminophen (Tylenol) tablet 650 mg 20 46 (Given - Provider: Jelly Crenshaw RN) 0230 (Given - Provider: Jelly Razo ms, RN)0632 (Given - Provider: Jelly Crenshaw RN)1053 (Given - Provider: Carol Mensah, RN)1510 (Given - Provider: Carol Mensah, MICHAEL) 650 mg, Oral, EVERY 4 HOURS PRN, Startin g 04/12/20 at 1733, Until 04/13/20 at 2020, Pain, Fever, Headaches, Maximum dose of acetaminophen is 4000 mg from all sources in 24 hours., Routine BUpivacaine-EPINEPHrine 0.25 %-1:200,000 injection (CA NCELED) 0928 (Given - Provider: Tiki Jacobs MD) ONCE PRN, Starting Jessica 04/11/20 at 0928, Until Jessica 04/11/20 at 1622, Intra- Operative (Intra-Procedure), Routine gelatin compressed (GELFOAM) sponge (CANCELED) 927 (G iven - Provider: Tiki Jacobs MD) ONCE PRN, Starting Jessica 04/11/20 at 0928, Until Jessica 04/11/20 at 1622, Intra- Operative (Intra-Procedure) hydrALAZINE (APRESOLINE) injection 10 mg 10 mg, Intravenous, EVERY 1 HOUR PRN, St arting Jessica 7/30/20 at 1400, Until 04/13/20 at 2020, High Blood Pressure, Target systolic blood pressure (SBP) less than 160 mmHg. Administer 10 mg IV . May repe at once in 15 minutes if SBP greater alton n target BP (caution if HR greater than 90). Use if labetalol ineffective after 1 hour., Routine HYDROmorphone (DILAUDID) injection 0.2 mg (CANCELED) 2 245 (Given - Provider: Emeka Copeland, MICHAEL) 0.2 mg, Intravenous, EVERY 4 HOURS PRN, Starting Jessiac 04/11/20 at 2243, Until Wed04/12/20 at 0116, Pain, Routine HYDROmorphone (DILAUDID) injection 0.2 mg (COMPLETED) 0132 (Given - Provider: Emeka Copeland, MICHAEL)0540 (Given - Provider: Obi Menendez RN)0821 (Given - Provider: Meggan Minaya RN) 0.2 mg, Intravenous, EVERY 2 HOURS PRN, 3 doses, Starting Wed04/12/20 at 0130, Until Discontinued, Pain, Routine HYDROmorphone (Dilaudid) tablet 2 mg 112 4 (Given - Provider: Meggan Minaya RN)1537 (Given - Provider: Meggan Minaya RN)1848 (Not Given - Provider: Meggan Minaya RN - Reason: Contraindicated - Comment: too soon) 0409 (Given - Provider: Jelly Crenshaw RN)0851 (Given - Provider: Carol Mensah RN)1344 (Given - Provider: Carol Mensah RN)1722 (Given - Provider: Carol Mensah RN) 2 mg, Oral, EVERY 4 HOURS PRN, Starting Wed04/12/20 at 0114, Until 04/13/20 at 2020, Pain, May give an additional 2 mg once if pain not relieved in 30-60 minutes., Routine 1849 (Not Given - Provider: Meggan Minaya RN - Reason: See comment - Comment: too soon)1937 (Given - Provider: Jelly Crenshaw RN)2338 (Given - Provider: Jelly Crenshaw RN) labetalol (NORMODYNE,TRANDATE) injection 10-20 mg 10-20 mg, Intravenous, EVERY 1 HOUR PRN, Starting Jessica 04/11/20 at 1400, Until 04/13/20 at 2020, High Blood Pressure, Target systolic blood pressure (SBP) less than 160 mmHg. Administer 10 mg over 2 min utes. May repeat every 15 minutes if SBP remains above goal. If inadequate effect with second 10 mg dose then increase dose to 20 mg for subsequent dosing every 15 minutes. Dose not to exceed 300 mg per day. Hold if pulse is less than 50 beats per minute., Routin e lidocaine (XYLOCAINE) 10 mg/mL (1 %) injection 50 mg (COMPLE JEM) 1655 (Given - Provider: Meggan Minaya, RN) 50 mg (5 mL), Subcutaneous, ONCE PRN, 1 dose, Starting Wed04/12/20 at 1128, Until Discontinued, for lumbar drain removal, Routine metoclopramide (REGLAN) injection 10 mg 0134 (Given - Provider: Emeka Copeland, MICHAEL)1043 (Given - Provider: Elsa Nick, MICHAEL) 10 mg, Intravenous, EVERY 6 HOURS PRN, S tarting Jessica 7 at 1400, Until 04/13/20 at 2020, Nausea, If multiple antiemetics are ordered, use ondansetron first, prochlorperazine second, and metaclopramide third. ondansetron (ZOFRAN) injection 4-8 mg(Linked Group 3) 1413 (Given - Provider: Elsa Nick, MICHAEL)1451 (Given - Provider: Elsa Nick, RN)1938 (Given - Provider: Emeka Copeland, MICHAEL) 0954 (Given - Provider: Meggan Minaya, MICHAEL) 1722 (Given - Provider: Carol Mensah, RN) 4-8 mg, Intravenous, EVERY 8 HOURS PRN, Starting Jessica 04/11/20 at 1400, Until 04/13/20 at 2020, Nausea, If multiple antiemetics are ordered, use ondansetron first, prochlorperazine second, and metacl opramide third. Start with 4mg and if ineffective in 30 minutes, give an additional 4mg ondansetron (Zofran) tablet 4-8 mg(Linked Group 3) 141 3 (See Alternative - Provider: Elsa Nick, RN)1451 (See Alternative - Provider: Elsa Nick, RN)1938 (See Alternative - Provider: Emeka Copeland, MICHAEL) 0954 (See Alternative - Provider: Meggan Minaya, MICHAEL) 1722 (See Alternative - Provider: Carol Mensah, RN) 4-8 mg, Oral, EVERY 8 HOURS PRN, Startin g Jessica 04/11/20 at 1400, Until 04/13/20 at 2019, Nausea, Vomiting, If multiple antiemetics are ordered, use ondansetron first, prochlorperazine second, and met aclopramide third. PO Preferred. If pa tient unable to take PO, may give IV if ordered. Start with 4mg and if ineffective in 45 minutes, give an additional 4mg, Routine oxyCODONE (Roxicodone) tablet 10-15 mg (CANCELED) 2150 (Given - Provider: Emeka Copeland, RN) 10-15 mg, Oral, EVERY 4 HOURS PRN, Start ing Jessica 04/11/20 at 1400, Until 04/12/20 at 0115, Pain, severe pain (7-10), Initial dose 10mg. If pain control not adequet in 60 minutes, give additional 5mg., Routine polyethylene glycoL (Miralax) packet 17 g 17 g, Oral, DAILY PRN, Starting Jessica 04/11 at 1400, Until 04/13/20 at 2019, Constipation, Administer if no bowel movement within 48 hours to achieve: (1) One bowel movement at least every 48 hours, A ND (2) without straining. If multiple [place] N bowel medications ordered, start with polyethylene glycol, then lactulose, then oral bisacodyl, then bisacodyl suppository, then magnesium citrate, then tap clementine er enema. Multiple medications may be gi helene concomitantly for constipation., Routine thrombin (Bovine) (THROMBINAR) kit (CANCELED) 927 (Gi helene - Provider: Tiki Jacobs MD - Comment: Used with gel foam) ONCE PRN, Starting Jessica 04/11/20 at 0928, Until Jessica 04/11/20 at 1622, Intra- Operative (Intra-Procedure) No Frequency Medication Order 04/11/2020 04/12/2020 04/13/2020 HYDROmorphone (DILAUDID) 2 mg/mL injection (COMPLETED) 1429 (Given - Provider: Elsa Nick RN) 1 dose, Starting Wed04/11/20 at 1421, Un til Wed04/12/20 at 0229, ELSA NICK. (LS): cabinet override Linked Groups Order Group 1: pantoprazole EC (Protonix) tablet 40 mgJump to med 40 mg, Oral, DAILY, First dose on Wed at 1500, Until Discontinued
DO NOT CRUSH OR OPEN If unable to take PO, may give IV
Routine Or pantoprazole (PROTONIX) injection 40 mgJump to med 40 mg, Intravenous, DAILY, First dose on Wed04/11/20 at 1500, Until Discontinued
Reconstitute with 10 mL of normal saline to a concentration of 4 mg/mL and infuse slowly over 2 minutes.
Routine Group 2: scopolamine (TRANSDERM-SCOP) 1 mg over 3 days patch 1 patchJump to med 1 patch, Transdermal, EVERY 72 HOURS, Fi rst dose on Wed04/11/20 at 2045, Until Discontinued, Routine And scopolamine (TRANSDERM-SCOP) 1 mg patch Patch VerificationJump to med Transdermal, 2 TIMES DAILY, First dose o n Wed04/12/20 at 0745, Until Discontinued
Verify scopolamine 1 mg patch.
And scopolamine (TRANSDERM-SCOP) 1 mg patch Patch RemovalJump to med Transdermal, EVERY 72 HOURS, First dose on Wed04/14/20 at 1945, Until Discontinued
Remove scopolamine 1 mg patch
Group 3: ondansetron (Zofran) tablet 4-8 mgJump to med 4-8 mg, Oral, EVERY 8 HOURS PRN, Startin g Wed04/11/20 at 1400, Until 04/13/20 at 2020, Nausea, Vomiting
If multiple antiemetics are ordered, use ondansetron first, prochlorperazine second, and metaclopramide third. PO Pre ferred. If patient unable to take PO, may give IV if ordered. Start with 4mg and if ineffective in 45 minutes, give an additional 4mg
Routine Or ondansetron (ZOFRAN) injection 4-8 mgJump to med 4-8 mg, Intravenous, EVERY 8 HOURS PRN, Starting Jessica 04/11/20 at 1400, Until 04/13/20 at 2020, Nausea
If multiple antiemetics are ordered, use ondansetron first, prochlorperazine second, an d metaclopramide third. Start wit h 4mg and if ineffective in 30 minutes, give an additional 4mg
documented in this encounter Care Teams Operation Agent Relationship Specialty Start Date End Date Syed Leong MD PCP - General Family Medicine 02/28/20 08/04/20 [address] [facility] [address] [place] [address] documented as of this encounter
--- OUTSIDE RECORDS SUMMARY | 2022-05-22 15:17 | XMS_ITS | Encounter Summary ---
:1980 Author Organization [facility] [place] [address] Care Team Providers Name Role Phone Syed Leong MD Primary Care Provider Encounter Details Date Type Department Care Team Description 04/19/2020 Telephone Otolaryngology at [facility] [place] [address] Social History Tobacco Use Types Packs/Day Years Used Date Former Smoker Smokeless Tobacco: Never Used Comments: quit a few years ago Alcohol Use Standard Drinks/Week Comments Not Currently 0 (1 standard drink = 0.6 oz pure alcoho l) Sex Assigned at Date Recorded Not on file documented as of this encounter Miscellaneous Notes Telephone Encounter - Jerilyn Rivera RN - 04/19/2020 10:15 AM EDT Patients returned call to staff to update on Flavio's progress after being on 60 mg of Prednisone for three days. Per Joanie, there has been minimal improvement as Flavio still cannot close his eye, eats through a straw and has drooping of his lip. Explained to Joanie that Dr. Welsh would be updated on this and a new order, whether steroid taperor continue the 60 mg of Prednisone would be ordered. Joanie expresses understanding with this plan. documented in this encounter Plan of Treatment Not on filedocumented as of this encounter Visit Diagnoses Not on filedocumented in this encounter Care Teams Drop Board Man Relationship Specialty Start Date End Date Syed Leong MD PCP - General Family Medicine 02/28/20 08/04/20 [address] [facility] [address] [place] [address] documented as of this encounter
--- OUTSIDE RECORDS SUMMARY | 2022-05-22 15:17 | XMS_ITS | Encounter Summary ---
:1980 Author Organization [facility] [place] [address] Care Team Providers Name Role Phone Syed Leong MD Primary Care Provider Reason for Visit Reason Onset Date Comments TeleHealth 05/17/2020 Encounter Details Date Type Department Care Team Description 05/17/2020 Telephone Neurosurgery at [facility] Jacobs [facility] [place] [address] NEUROSURGERY [phone] [place], [place] [address] (Wo rk) Social History Tobacco Use Types Packs/Day Years Used Date Former Smoker Smokeless Tobacco: Never Used Comments: quit a few years ago Alcohol Use Standard Drinks/Week Comments Not Currently 0 (1 standard drink = 0.6 oz pure alcoho l) Sex Assigned at Date Recorded Not on file documented as of this encounter Miscellaneous Notes Telephone Encounter - Na Guy RN - 05/17/2020 2:00 PM EDT Unable to reach this patient by phone to review medications and allergies prior to upcoming tele-appointment scheduled with Neurosurgery provider. No message left. documented in this encounter Plan of Treatment Not on filedocumented as of this encounter Visit Diagnoses Not on filedocumented in this encounter Care Teams Labor Utilization Superintendent Relationship Specialty Start Date End Date Syed Leong MD PCP - General Family Medicine 02/28/20 08/04/20 [address] [facility] [address] [place] [address] documented as of this encounter
--- OUTSIDE RECORDS SUMMARY | 2022-05-22 15:17 | XMS_ITS | Encounter Summary ---
:1980 Author Organization [facility] [place] [address] Care Team Providers Name Role Phone Syed Leong MD Primary Care Provider Reason for Visit Reason Comments Suture / Staple Removal Encounter Details Date Type Department Care Team Description 04/24/2020 Office Visit Neurosurgery at [facility] Delia Geronimo, Encounter for staple [facility] [place] [address] Social History Tobacco Use Types Packs/Day [...] Sign Reading Time Taken Comments Blood Pressure 136/82 04/24/2020 8:59 AM EDT Pulse 86 04/24/2020 8:59 AM EDT Temperature - - Respiratory Rate - - Oxygen Saturation - - Inhaled Oxygen Concentration - - Weight - - Height - - Body Mass Index - - documented in this encounter Progress Notes Delia Geronimo - 04/24/2020 9:00 AM EDT Flavio Hamm 1980 39 y.o. [id number] History of Presentation: The following information was [...] problems in left eye. 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 He occasionally has episodes of left eye jumping around. Has for years had occasional twitching of eyes with stress and continues to notice that L>R lately. Had MRI in Oct with Dx of Left IAC acoustic neuroma. 1 -2 weeks later he had anepisode of paresthesia of his lower lip (bilateral), bilateral UE paresthesias, headache and increased size of blotch in his left eye. This prompted a repeat MRI which looks similar to the first. He also has visual halos and scintilating scotoms, but he is less certain abotu whether these are present in both eyes. ?? Hospital Course: Flavio Hamm underwent a left middle fossa craniotomy for tumor resection on 04/11/2020. He tolerated the procedure well and there were no reported intraoperative complications. A lumbar drain was placed intraoperatively for CSF diversion and removed on POD1. Immediately post-op he was noted to haveL facial weakness, but was able to close his eye. He was initially on steroids, but these were stopped due to patient stating they made him anxious and agitated. However, on POD2, his facial weakness became worse and he was unable to close the left eye. ENT recommended he be placed back on steroids and that he be given eye drops and ointment. Fam remained hemodynamically stable during the hospitalization. Patient was ambulating without assistance, voiding spontaneously, and his pain was well controlled on oral medications. He will be discharged on opiate pain medications. Alternatives were discussed and consent was signed. Flavio presents to clinic today for a scheduled staple removal after having a syncopal episode in his PCP's office when they attempted to remove the bertha (this was done POD #7). He is accompanied byhis . He is alert, oriented, and appropriate in NAD. His speech is clear. His ambulation is steady with narrow- based gait. He denies feeling lightheaded or dizzy. He BEYER well with 5/5 strength in upper and lower extremities. He denies numbness or tingling in upper and lower extremities. Continues to have left facial weakness and is unable to close his left eye. He has been taking the prescribed steroids and using his eye patch. His pupils are PERRL. Denies diplopia. EOM full without nystagmus. Left hearing continues to be decreased. Tongue is midline. Taking Dilaudid for pain control, is working on weaning of off this medication. Incision is well healed with skin edges well approximated. He was able to tolerate the staple removal well with no issues; all bertha were removed. Current Outpatient Medications: ??? amitriptyline (Elavil) 25 mg Tablet, Take 75 mg by mouth as needed., Disp: , Rfl: ??? ondansetron (Zofran) 4 mg Tablet, Take 1-2 tablets by mouth every 8 hours as needed., Disp: 20 tablet, Rfl: 0 ??? HYDROmorphone (Dilaudid) 2 mg Tablet, Take 1 tablet by mouth every 8 hours as needed for Pain., Disp: 20 tablet, Rfl: 0 ??? predniSONE (Deltasone) 10 mg Tablet, Take 6 tablets by mouth daily., Disp: 18 tablet, Rfl: 0 ??? carboxymethylcellulose (REFRESH PLUS) 0.5 % Dropperette, Place 1 drop into the left eye 4 times daily., Disp: 30 each, Rfl: 3 ??? predniSONE (Deltasone) 10 mg Tablet, Take 1 tablet by mouth daily. Take 3 tabs/day for 7 days, 2tabs/day for 2 days, 1 tab/day for 2 days, 1/2 tab/day for 2 days, Disp: 49 tablet, Rfl: 0 ??? acetaminophen (Tylenol) 325 mg Tablet, Take 2 tablets by mouth every 4 hours as needed., Disp: 30 tablet, Rfl: 1 ??? melatonin 3 mg Tablet, Take 2 tablets by mouth nightly., Disp: 30 tablet, Rfl: 3 ??? senna-docusate (Pericolace) 8.6-50 mg Tablet, Take 2 tablets by mouth 2 times daily., Disp: 60 tablet, Rfl: 11 ??? ibuprofen (Advil;Motrin) 600 mg Tablet, Take 600 mg by mouth every 6 hours as needed., Disp: , Rfl: ??? omeprazole (PriLOSEC) 40 mg Capsule, Delayed Release(E.C.), Take 40 mg by mouth daily., Disp: , Rfl: ??? eplerenone (Inspra) 25 mg Tablet, Take 25 mg by mouth 2 times daily., Disp: , Rfl: documented in this encounter Plan of Treatment Not on filedocumented as of this encounter Visit Diagnoses Diagnosis Encounter for staple removal Encounter for removal of sutures documented in this encounter Care Teams Brake Liner Relationship Specialty Start Date End Date Syed Leong MD PCP - General Family Medicine 02/28/20 08/04/20 [address] [facility] [address] [place] [id number] documented as of this encounter
--- OUTSIDE RECORDS SUMMARY | 2022-05-22 15:17 | XMS_ITS | Encounter Summary ---
:1980 Author Organization [facility] Address [address] [place] [address] Care Team Providers Name Role Phone Syed Leong MD Primary Care Provider Reason for Referral Physical Therapy (Routine) - Closed Specialty Diagnoses / Procedures Referred By Contact Refer red To Contact Physical Therapy Diagnoses Tear of right rotator cuff, unspecified tear extent, unspecified whether traumatic Torchia, Alejo Mendiola MD Physical Therapy, [facility] ORTHOPAEDIC SURGERY [address] ,[facility] [address] [place], [place] [id number] [place] [address] Phone: Fax: Referral ID Status Reason Start Date Expiration Date Visits V isits Requested Authorized [id number] Closed Evaluate and 04/02/2020 09/29/2020 12 12 Treat Reason for Visit Reason Comments Right Shoulder Pain Lifting injury: 01/29/2020, 2 nd opinion Establish Care Consultation (Routine) - Closed Specialty Diagnoses / Procedures Referred By Contact Refer red To Contact Orthopaedics Diagnoses Pain in right shoulder Right Shoulder Pain/ DOI 01/29/2020 lifting weights heard a pop and dropped the weights/ 2nd opinion Nitish Lopez APRN [facility] [address] [place] [id number] [place] [address] Referral ID Status Reason Start Date Expiration Date Visits V isits Requested Authorized [id number] Closed Consult, Test 03/04/2020 03/04/2021 1 1 [facility] PCP Updated and/or Approved Encounter Details Date Type Department Care Team Description 04/02/2020 Office Visit Orthopaedics at [facility] Mayo Neff, Tear of right rotator [facility] cuff, unspecified [address] [facility] tear extent, [place] [address] CENTER unspecified whether [phone] ORTHOPAEDIC traumatic SURGERY [place], [place] [address] Social History Tobacco Use Types Packs/Day Years Used Date Former Smoker Smokeless Tobacco: Never Used Comments: quit a few years ago Sex Assigned at Date Recorded Not on file documented as of this encounter Last Filed Vital Signs Vital Sign Reading Time Taken Comments Blood Pressure 120/88 04/02/2020 8:08 AM EDT Pulse 101 04/02/2020 8:08 AM EDT Temperature - - Respiratory Rate - - Oxygen Saturation - - Inhaled Oxygen Concentration - - Weight 77.3 kg (170 lb 8 oz) 04/02/2020 8:08 AM EDT Height 172.7 cm (5' 8) 04/02/2020 8:08 AM EDT Body Mass Index 25.92 04/02/2020 8:08 AM EDT documented in this encounter Progress Notes Alejo Maria MD - 04/02/2020 8:00 AM EDT Orthopaedic Office Note Attending: Dr. Aishwarya Hamm is a 39 y.o. male who presents to see us in consultation today for right shoulder pain at the request of: Nitish Lopez, TEXTILE WORKER [address] [facility] [address] [place] [address] History of Present Illness: Flavio Hamm is a right hand dominant 39 y.o. male who presents with 2 months of right shoulder pain which began after bench pressing in January 2020. The patient noted immediate pain at that time and has subsequently had difficulty sleeping, working out, and completing normal job activities due to his pain. He denies any neck pain and any numbness or paresthesias in his right upper extremity. His pain localizes to just distal to the lateral aspect of the acromion. He has had a subacromial injection approximately 3 weeks ago which provided 1 day of complete pain relief. He has not undergone physical therapy. He is scheduled to undergo resection of an acoustic neuroma with neurosurgery on April 11 of this year. Past Medical History: Patient Active Problem List Diagnosis Code ??? 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 Allergies Allergen Reactions ??? Amoxicillin-Pot Clavulanate Angioedema ??? Bupropion ??? Naproxen Other (See Comments) Throat swelled 08/18 ??? Sulfa (Sulfonamide Antibiotics) Social History: Social History Socioeconomic History ??? Marital status: Spouse name: Not on file ??? Number of children: Not on file ??? Years of education: Not on file ??? Highest education level: Not on file Occupational History ??? Not on file Social Needs ??? Financial resource strain: Not on file ??? Food insecurity Worry: Not on file Inability: Not on file ??? Transportation needs Medical: Not on file Non-medical: Not on file Tobacco Use ??? Smoking status: Former Smoker ??? Smokeless tobacco: Never Used ??? Tobacco comment: quit a few years ago Substance and Sexual Activity ??? Alcohol use: Not on file ??? Drug use: Not on file ??? Sexual activity: Not on file Lifestyle ??? Physical activity Days per week: Not on file Minutes per session: Not on file ??? Stress: Not on file Relationships ??? Social connections Talks on phone: Not on file Gets together: Not on file Attends baptist service: Not on file Active member of club or organization: Not on file Attends meetings of clubs or organizations: Not on file Relationship status: Not on file ??? Intimate partner violence Fear of current or ex partner: Not on file Emotionally abused: Not on file Physically abused: Not on file Forced sexual activity: Not on file Other Topics Concern ??? Not on file Social History Narrative ??? Not on file Review of Systems: As above, otherwise negative Objective: GENERAL: Well appearing, NAD, awake, alert, appropriately answers questions HEENT- Normocephalic, atraumatic CV- RRR checked peripherally PULM- No increased work of breathing Skin- Intact Psych- Nl mood and affect Extremity Exam- Right shoulder: Pain to palpation just distal to the lateral and anterolateral aspect of the acromion. No pain to palpation at the AC joint. Able to actively forward flex approximate 160 degrees, able to actively externally rotate approximately 40 degrees, and able to internally rotate to T4. Minimal pain throughout this range of motion. 5 out of 5 strength with forward flexion, external rotation, and internal rotation. Pain just distal to the lateral aspect of the acromion with liftoff testing, bearhug testing, and belly press. Neurovascularly intact distally. Imaging: Radiographs of the right shoulder reviewed. These demonstrate maintained glenohumeral jointspace and maintained acromiohumeral distance. There is an os acromiale visible. MRI of the right shoulder was reviewed. This demonstrates partial articular sided tearing of the infraspinatus as well as tearing of the superior portion of the subscapularis with an intratendinous ganglion present. There is no long head of the biceps pathology. All images personally reviewed with Dr. Neff Assessment/Plan: 39 y.o. male who presents with right shoulder pain of 2 months duration refractory to a subacromial injection and rest. We had an extensive discussion with the patient regarding his diagnosis and subsequent treatment options. We discussed that his MRI does demonstrate evidence of partial articular sided tearing of the infraspinatus as well as the superior fibers of the subscapularis,although his pain is more lateral than would be expected with a subscapularis tear. His rotator cuffstrength is preserved as is his range of motion which are both reassuring. We discussed that a reasonable option at this juncture would be to undergo physical therapy for 6 to 8 weeks so that he can maximize his nonoperative options, especially in light of his upcoming acoustic neuroma resection with neurosurgery. Spine is amenable to the patient. The orders are placed today and he will contact us should his symptoms so dictate in the future. ?? This plan was discussed with the patient and they are in agreement. All of the patient's questions were answered. ?? He was seen alongside Dr. Neff who was in agreement with this plan. The above dictation was made with voice recognition software ALEJO MARIA MD PGY-5 Orthopaedic Surgery Resident Mayo Neff MD - 04/02/2020 8:00 AM EDT I saw and evaluated patient with Dr. Maria and agree with his note as documented. documented in this encounter Plan of Treatment Scheduled Referrals Name Type Priority Associated Diagnoses Order S chedule Referral to Outpatient Referral Routine Tear of right rotator Ordered: Physical Therapy cuff, unspecified 2019 tear extent, unspecified whether traumatic documented as of this encounter Visit Diagnoses Diagnosis Tear of right rotator cuff, unspecified tear extent, unspecified whether traumatic documented in this encounter Care Teams Dry Ice Maker Relationship Specialty Start Date End Date Syed Leong MD PCP - General Family Medicine 02/28/20 08/04/20 [address] [place] [address] documented as of this encounter
--- OUTSIDE RECORDS SUMMARY | 2022-05-22 15:17 | XMS_ITS | Encounter Summary ---
:1980 Author Organization [facility] [address] Care Team Providers Name Role Phone Syed Leong MD Primary Care Provider Reason for Referral Diagnostic Test (Routine) - Closed Specialty Diagnoses / Procedures Referred By Contact Refer red To Contact Radiology Diagnoses Vestibular schwannoma Facial paralysis Disequilibrium S/P excision of acoustic neuroma Tristan Zuleta PA [facility] Rad Mri Procedures MRI Brain wwo Contrast (Generic) [place] [address] [place] [address] Referral ID Status Reason Start Date Expiration Date Visits V isits Requested Authorized [id number] Closed Specialty 05/03/2020 11/03/2021 1 1 Service Requested hysical Therapy (Routine) - Specialty Diagnoses / Procedures Referred By Contact Refer red To Contact Diagnoses Vestibular schwannoma Facial paralysis Dise[place] [address] Referral ID Status Reason Start Date Expiration Date Visits V isits Requested Authorized [id number] Evaluate and 05/03/2020 10/30/2020 12 12 Treat Reason for Visit Reason Comments Follow-up 04/12/20 AN resection. Try ing to get odd prednisone. Not much sleep at night. Encounter Details Date Type Department Care Team Description 05/03/2020 Office Visit Otolaryngology at [facility] Vestibular schwannoma; [facility] Sonya Liao MD Facial paralysis; [place] [address] [facility]; [phone] CENTER S/P excision of acoustic neuroma OTOLARYNGOLOGY DEPT. [place], [place] [address] Social History Tobacco Use Types [...] Pressure - - Pulse - - Temperature 36.4 ??C (97.6 ??F) 05/03/2020 12:56 PM EDT Respiratory Rate - - Oxygen Saturation - - Inhaled Oxygen Concentration - - Weight 80.1 kg (176 lb 8 oz) 05/03/2020 12:56 PM EDT Height 172.7 cm (5' 8) 05/03/2020 12:56 PM EDT Body Mass Index 26.84 05/03/2020 12:56 PM EDT documented in this encounter Patient Instructions Patient InstructionsTristan Zuleta PA - 05/03/2020 1:00 PM EDT List of Community Physical Therapist with expertise in balance: [place]: Nidia [facility] Tessa Erickson PT [phone] Fax [phone] [facility] Gaby Mccarthy Fax [phone] [facility] Malena Perales Fax [phone] [facility] Malena Perera (I know Malena) Some others as well [facility] office-2PTs who do Vestibular Fax [phone] [facility] Danni Germain [facility] Yue Rogers [facility] [phone] Fax [phone] [place] (near [place]) Jelly Toro [facility] [address] [phone] [facility] [phone] Fax [phone] [facility] [phone] [facility] Jolene Bernardo [phone] [facility] Christianne Realy Evans [phone] Fax [phone] [place], [place] [facility] Jolene Narvaez [phone] Fax [phone] [place]: [place], [place] Luann Cheung [facility] Bhavya Coker [facility] Jelly [place] Nancy [facility] [employer] Becky Nazario Fax [phone] [facility] Nancy Nick documented in this encounter Progress Notes Tristan Zuleta PA - 05/03/2020 1:00 PM EDT HPI: 04/11/2020- Procedure: Middle fossa craniotomy with resection of acoustic neuroma. Findings: cochlea and facial nerves anatomically intact with minimal change of ABR and good facial nerve stim at brainstem (0.05 mA) Last appointment summary: As for management of his tumor, he [...] a non preservation approach (rertrosigmoid or translab). 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 Was put on a 50mg prednisone taper 8 days ago. He has not been following the strict taper. Due to side effects, he has decreasing quicker than normal and reports he has not taking any prednisone today. Has been using hydrating ointment as drops do not stay in the eye. Has not been using hydration chamber. Denies distinct vertigo but has had some rocking sensation after turning his head quick PMH: reviewed, no interval change System review: the Constitutional and ENT systems are thoroughly reviewed for any changes. Pertinentpositives are listed in the HPI. Physical Exam The patient is well developed, well nourished. Responds to commands appropriately. Vocalizes in a strong clear voice. Alert and oriented x3. Ears: The pinnas are without erythema or mass. Both ears were carefully examined using binocular microscopy Left side: Ear canal clear Tympanic membrane intact and translucent with normal mobility on pneumatic otoscopy. Fistula test isnegative. Right side: Ear canal clear Tympanic membrane intact and translucent with normal mobility on pneumatic otoscopy. Fistula test isnegative. Sharp sensation intact aqnd symmetric bilaterally in all trigeminal braches Masseter strength is equal and symmetrical (CN V) TMJ is non tender Facial Nerve Function is asymmetric with Left sided paralysis: House-Brackman IV Hitselberger Test - no hypaesthesia in either EAC (CNVII) Palate is midline and voice is strong (CN IX & X) Tongue is midline (CN XII) Shoulder elevation is strong and symmetrical (XI) Ocular Exam: No spontaneous or gaze evoked nystagmus, EOMI with smooth pursuit Eyes Closed Rhomberg - stable Tandem Rhomberg - Unstable with postural sway Tandem Gait - unstable with step outs Fukuda Test - stable without drift Finger to pt's nose testing (self with eyes closed) is normal Finger to nose test (pt and examiner) - normal no dysmetria or past pointing Heel to Luz - Normal bilaterally Rapid alternating movements - normal, no diadokokinesis A/P: Dr. Welsh had a long discussion with the patient regarding his symptoms and recovery after surgery. Facial nerve paralysis: Explained that recovery can [...] to this and al questions were answered. Recommended evaluation for vestibular PT for his ongoing balance disruption. External referral generated. RTC in 2-3 months with MRI and AE prior IRMA Jenkins, MS, PA-C, [place] [address] phone: [phone] Christopher Welsh MD - 05/03/2020 1:00 PM EDT I have discussed the case with Robert EPPS, reviewed the pertinent details in the chart, interviewed and examined the patient. I agree with the documented history, exam findings and management plan.Fam is doing well except for his facial paralysis. No improvement on steroids. Will taper off. Advised about duration of recovery (4 - 8 mo) and discussed gold weight options. He sees hitting coach on Wednesday. RTC 3 mo with MRI and AE. documented in this encounter Plan of Treatment Scheduled Referrals Name Type Priority Associated Diagnoses Order S chedule Referral to Outpatient Referral Routine Vestibular Ordered: Physical Therapy schwannoma 05/03/2020 Facial paralysis Disequilibrium documented as of this encounter Results MRI Brain wwo Contrast (Generic) (08/02/2020 11:16 AM EST) Anatomical Region Laterality Modality Head Magnetic Resonance Specimen (Source) Anatomical Location Collection Method / Collectio n Time Received Time / Laterality Volume Impressions 08/02/2020 1:27 PM EST 1. ??Linear enhancement along the posterior aspect of the left internal auditory canal favored to represent either postop erative change or prominent vascular enhancement and not residual tumor. 2. 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 Thank you for letting us participate in the care of this patient. For questions regarding this report, please contact e number below. ? Narrative 08/02/2020 1:27 PM EST EXAMINATION: MRI BRAIN WWO CONTRAST (GENERIC) CLINICAL HISTORY: Brain/MID LEVEL DEVELOPER neoplasm, st aging Please evaluate IACs afer excision of Ac oustic Neuroma. TECHNIQUE: MRI of the brain was performed before an d after the intravenous administration of 16cc Dotarem. COMPARISON: MRI 03/28/2020 FINDINGS: Left temporal craniotomy changes are aga in seen related to prior left middle fossa approach for resection of previous ly identified left internal auditory canal vestibular schwannoma. There is li near enhancement along the posterior aspect of the left internal auditory can al. Otherwise there is only vague enhancement associated with the fat yas t, likely reactive and postoperative in nature. There is decreased and focally absent T2 bright signal intensity in the superior aspect of the left superior semicircular canal. On the whole brain DWI and FLAIR images, there is no evidence of intracranial hemorrhage, hydrocephalus, mass, mass ef fect, midline shift, or acute infarction. Procedure Note Tracy Newton MD - 08/02/2020Formatting o f this note might be different from the original. EXAMINATION: MRI BRAIN WWO CONTRAST (GEN RUBIN) CLINICAL HISTORY: Brain/MID LEVEL DEVELOPER neoplasm, st aging Please evaluate IACs afer excision of Ac oustic Neuroma. TECHNIQUE: MRI of the brain was performed before an d after the intravenous administration of 16cc Dotarem. COMPARISON: MRI 03/28/2020 FINDINGS: Left temporal craniotomy changes are aga in seen related to prior left middle fossa approach for resection of previous ly identified left internal auditory canal vestibular schwannoma. There is li near enhancement along the posterior aspect of the left internal auditory can al. Otherwise there is only vague enhancement associated with the fat yas t, likely reactive and postoperative in nature. There is decreased and focally absent T2 bright signal intensity in the superior aspect of the left superior semicircular canal. On the whole brain DWI and FLAIR images, there is no evidence of intracranial hemorrhage, hydrocephalus, mass, mass ef fect, midline shift, or acute infarction. IMPRESSION 1. Linear enhancement along the posterio r aspect of the left internal auditory canal favored to represent either postop erative change or prominent vascular enhancement and not residual tumor. 2. Findings which likely represent ossif amalia labyrinthitis of the left superior semicircular canal which has developed s richard the prior study. Thank you for letting us participate in the care of this patient. For questions regarding this report, please contact th e number below. Christopher Welsh MD IMG MRI ORDERABLES documented in this encounter Visit Diagnoses Diagnosis 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 Facial paralysis Richardson's palsy Disequilibrium Dizziness and giddiness S/P excision of acoustic neuroma Other postprocedural status 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 Facial paralysis Richardson's palsy Disequilibrium Dizziness and giddiness S/P excision of acoustic neuroma Other postprocedural status documented in this encounter Care Teams Cook Tortilla Relationship Specialty Start Date End Date Seyd Leong MD PCP - General Family Medicine 02/28/20 08/04/20 [address] [place] [id number] documented as of this encounter
--- OUTSIDE RECORDS SUMMARY | 2022-05-22 15:17 | XMS_ITS | Encounter Summary ---
:1980 Author Organization [facility] [place] [address] Care Team Providers Name Role Phone Syed Leong MD Primary Care Provider Reason for Visit Reason Comments Brain Tumor Encounter Details Date Type Department Care Team Description 05/21/2020 TH Visit Neurosurgery at [facility] Omar Jacobs Vestibular (TeleHealth) [facility] [place] [address] [place] [address] NE[place] [address] Social History Tobacco Use Types Packs/Day Years Used Date Former Smoker Smokeless Tobacco: Never Used Comments: quit a few years ago Alcohol Use Standard Drinks/Week Comments Not Currently 0 (1 standard drink = 0.6 oz pure alcoho l) Sex Assigned at Date Recorded Not on file documented as of this encounter Progress Notes Omar Jacobs MD - 05/21/2020 10:15 AM EDT I just spoke with Flavio on the phone. He is status post a middle fossa resection of a intracanalicular vestibular schwannoma. Overall he seems to be doing well. He is predominantly frustrated with hislack of energy and inability to get back to a regular exercise routine. I told him that this is a typical response from surgery and that with time he should be able to get back to his usual activities. States that the incision has healed well. He continues to have a para-cysts on the left side. Hopefully this will improve in the next month or so as he had very good conduction through the nerve at thetime of surgery. The pathology returned as expected with a grade 1 schwannoma. I will defer further management to Dr. Welsh including the timing of follow- up imaging. He knows to contact us if there are any problems or concerns. documented in this encounter Plan of Treatment Not on filedocumented as of this encounter Visit Diagnoses Diagnosis 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 documented in this encounter Care Teams [employer] Law Clerk Relationship Specialty Start Date End Date Syed Leong MD PCP - General Family Medicine 02/28/20 08/04/20 [address] [facility] [address] [place] [address] documented as of this encounter
--- OUTSIDE RECORDS SUMMARY | 2022-05-22 15:17 | XMS_ITS | Encounter Summary ---
:1980 Author Organization [facility] [place] [address] Care Team Providers Name Role Phone Syed Leong MD Primary Care Provider Reason for Visit Diagnostic Test (Routine) - Closed Specialty Diagnoses / Procedures Referred By Contact Refer red To Contact Radiology Diagnoses Vestibular schwannoma Facial paralysis Disequilibrium S/P excision of acoustic neuroma Tristan Zuleta PA [facility] Rad Mri Procedures MRI Brain wwo Contrast (Generic) [facility] [place] [address] [place] [address] Referral ID Status Reason Start Date Expiration Date Visits V isits Requested Authorized [id number] Closed Specialty 05/03/2020 11/03/2021 1 1 Service Requested Encounter Details Date Type Department Care Team Description 08/02/2020 Hospital Encounter MRI at [facility] Christopher Welsh, [facility] [place] [address] OTOLARYNGOLOGY D EPT. [place], [place] [address] (Wo rk) Social History Tobacco [...] Sign Reading Time Taken Comments Blood Pressure 125/96 08/02/2020 9:17 AM EST Pulse 65 08/02/2020 9:17 AM EST Temperature 36.6 ??C (97.9 ??F) 08/02/2020 9:17 AM EST Respiratory Rate 14 08/02/2020 9:17 AM EST Oxygen Saturation 100% 08/02/2020 9:17 AM EST Inhaled Oxygen Concentration - - Weight - - Height - - Body Mass Index - - documented in this encounter Medications at Time of Discharge Medication Sig Dispensed Refills Start Date End Date ibuprofen (Advil;Motrin) 600 Take 600 mg by 0 mg Tablet mouth every 6 hours as needed. omeprazole (PriLOSEC) 40 mg Take 40 mg by 0 10/06 Capsule, Delayed Release(E.C.) mouth daily as needed. traMADoL (Ultram) 50 mg Tablet Take 1 tablet 24 tablet 0 09/10/2020 by mouth every 8 hours as needed for Pain. predniSONE (Deltasone) 10 mg Take 5 tabs/d x 47 tablet 0 03/19/2021 TabletIndications: Acoustic 3 d, 4 tabs/d x neuroma, Facial paralysis 3 d, 3 tabs/d x 3 d, 2 tabs/d x 3 d, 1 tab/d x 3 d, then 1/2 tab/d x 3 d amitriptyline (Elavil) 25 mg Take 75 mg by 0 /12/201911/29/2020 Tablet mouth as needed. ondansetron (Zofran) 4 mg Take 1-2 20 tablet 0 04/22/2020 05/12/2021 Tablet tablets by mouth every 8 hours as needed. carboxymethylcellulose Place 1 drop 30 each 3 04/13/2020 03/19/2021 (REFRESH PLUS) 0.5 % into the left Dropperette eye 4 times daily. acetaminophen (Tylenol) 325 mg Take 2 tablets 30 tablet 1 0 04/13/2020 05/12/2021 Tablet by mouth every 4 hours as needed. melatonin 3 mg Tablet Take 2 tablets 30 tablet 3 04/13/2020 03/19/2021 by mouth nightly. senna-docusate (Pericolace) Take 2 tablets 60 tablet 11 09/201903/19/2021 8.6-50 mg Tablet by mouth 2 times daily. eplerenone (Inspra) 25 mg Take 25 mg by 0 03/19/2021 Tablet mouth 2 times daily. documented as of this encounter Progress Notes Khadra Miller - 08/02/2020 9:26 AM EST INTERVENTIONAL RADIOLOGY FOCUSED H&P: Procedure: MRI The patient's history and physical exam have been reviewed. Physical Exam: Cardiovascular: Regular, Normal Pulmonary: Breath sounds clear to auscultation The planned procedure (and sedation plan if appropriate) , its benefits and risks, and alternatives were discussed with the patient. The patient consented to the procedure. PRE-SEDATION ASSESSMENT: Sedation Plan: moderate (conscious sedation) ASA: 1: Normally healthy patient Mallampati: II: tonsillar pillars are blocked by the tongue Confirm NPO status: Yes History of anesthetic complications: No Current medications reviewed: Yes Allergies reviewed: Yes Khadra Miller MD documented in this encounter Plan of Treatment Not on filedocumented as of this encounter Procedures Procedure Name Priority Date/Time Associated Diagnosis Comme nts MRI BRAIN WWO Routine 08/02/2020 11:16 AM Vestibular Results for this CONTRAST (GENERIC) EST schwannoma procedure are in Facial paralysis the results Disequilibrium section. S/P excision of acoustic neuroma documented in this encounter Visit Diagnoses Not on filedocumented in this encounter Administered Medications Inactive Administered Medications - up to 3 most recent administrations Medication Order MAR Action Action Date Dose Rate Site gadoterate meglumine (DOTAREM) Given 08/02/2020 10:50 AM EST 16 mLs 0.5 mmol/mL (376.9 mg/mL) injection 0.2 mL/kg/dose 0.2 mL/kg/dose, Intravenous, ONCE PRN, 1 dose, Starting on Wed08/02/20 at 1050, Until Wed08/02/20 at 1050, Per Protocol, Radiology Contrast, Routine documented in this encounter Care Teams Guest Services Manager Relationship Specialty Start Date End Date Syed Leong MD PCP - General Family Medicine 02/28/20 08/04/20 [address] [place] [address] documented as of this encounter
--- OUTSIDE RECORDS SUMMARY | 2022-05-22 15:17 | XMS_ITS | Encounter Summary ---
:1980 Author Organization [facility] Address [address] [place] [address] Care Team Providers Name Role Phone Syed Leong MD Primary Care Provider Encounter Details Date Type Department Care Team Description 05/10/2020 Telephone Ophthalmology at [facility] C Mariya Coe MD [facility] [place] [address] OPHTHALMOLOGY DEPT [phone] [place], [place] [address] (Wo rk) Social History Tobacco Use Types Packs/Day Years Used Date Former Smoker Smokeless Tobacco: Never Used Comments: quit a few years ago Alcohol Use Standard Drinks/Week Comments Not Currently 0 (1 standard drink = 0.6 oz pure alcoho l) Sex Assigned at Date Recorded Not on file documented as of this encounter Miscellaneous Notes Telephone Encounter - Abdon Celia - 05/10/2020 1:46 PM EDT Called to check in with patient, spoke w/ his Joanie who handles his medical scheduling/calls. Joanie states Flavio has been using a moisture chamber nightly along with genteal gel day and night. Feels eye is doing alright. I let Joanie know we would be scheduling Flavio for his visit w/ Dr. Coe in the near future, that heshould keep using his moisture chamber and the genteal gel and call if he is having any difficulties. Will mail a couple more moisture chambers as current one they were given is falling apart. documented in this encounter Plan of Treatment Not on filedocumented as of this encounter Visit Diagnoses Not on filedocumented in this encounter Care Teams Jewel Inserter Relationship Specialty Start Date End Date Syed Leong MD PCP - General Family Medicine 02/28/20 08/04/20 [address] [facility] [address] [place] [phone] documented as of this encounter
--- OUTSIDE RECORDS SUMMARY | 2022-05-22 15:17 | XMS_ITS | Encounter Summary ---
:1980 Author Organization [facility] [place] [address] Care Team Providers Name Role Phone Syed Leong MD Primary Care Provider Encounter Details Date Type Department Care Team Description 04/24/2020 Telephone Otolaryngology at [facility] [place] [address] Social History Tobacco Use Types Packs/Day Years Used Date Former Smoker Smokeless Tobacco: Never Used Comments: quit a few years ago Alcohol Use Standard Drinks/Week Comments Not Currently 0 (1 standard drink = 0.6 oz pure alcoho l) Sex Assigned at Date Recorded Not on file documented as of this encounter Miscellaneous Notes Telephone Encounter - Yola Mahajan RN - 04/24/2020 8:46 AM EDT [facility] home and cell # re: update on facial paralysis. Call back number left. documented in this encounter Plan of Treatment Not on filedocumented as of this encounter Visit Diagnoses Not on filedocumented in this encounter Care Teams Ostomy Rn Relationship Specialty Start Date End Date Syed Leong MD PCP - General Family Medicine 02/28/20 08/04/20 [address] [place] [address] documented as of this encounter
--- OUTSIDE RECORDS SUMMARY | 2022-05-22 15:17 | XMS_ITS | Encounter Summary ---
:1980 Author Organization [facility] [place] [address] Care Team Providers Name Role Phone Syed Leong MD Primary Care Provider Encounter Details Date Type Department Care Team Description 04/19/2020 Orders Only Otolaryngology at [facility] Jerilyn Rivera Facial paralysis (Primary Dx ); [facility] Sonya [place] [address] Social History Tobacco Use Types Packs/Day [...] as of this encounter Visit Diagnoses Diagnosis Facial paralysis - Primary Richardson's palsy Acoustic neuroma Benign neoplasm of cranial nerves documented in this encounter Care Teams Slitter And Rewinder Relationship Specialty Start Date End Date Syed Leong MD PCP - General Family Medicine 02/28/20 08/04/20 [address] [place] [address] documented as of this encounter
--- OUTSIDE RECORDS SUMMARY | 2022-05-22 15:17 | XMS_ITS | Encounter Summary ---
:1980 Author Organization [facility] Address [facility] [place] [address] Care Team Providers Name Role Phone Kobe Richardson MD Primary Care Provider Reason for Visit Reason Onset Date Comments Medication Refill 04/22/2020 Encounter Details Date Type Department Care Team Description 04/22/2020 Refill Neurosurgery at [facility] Nitish Calloway PA [facility] [place] [address] NEUROSURGERY [phone] [place], [place] [address] (Wo rk) Social History Tobacco [...] on filedocumented in this encounter Care Teams Orthopedic Rn Relationship Specialty Start Date End Date Kobe Richardson MD PCP - General Family Medicine 08/05/20 [facility] [place] [id number] documented as of this encounter
--- OUTSIDE RECORDS SUMMARY | 2022-05-22 15:17 | XMS_ITS | Encounter Summary ---
:1980 [place] [address] Care Team Providers Name Role Phone Syed [...] Expiration Date Visits Requ ested Visits Authorized [id number] 1 1 Encounter Details Date Type Department Care Team Description 04/11/2020 Anesthesia Event Main Operating Room Yanni Potts MD [facility] [place] [address] Iesha [facility] Dylan Gomez CRNA [facility] [place] [address] [phone] ([place] [address] Anesthesia Record Procedure Summary Procedure Name Responsible Anesthesia Start Anesthesia Stop Time Anesthesiologist Time @CRANI-INFRATEMPORA Kaylen Potts MD 04/11/20 0736 1348 L APPROACH TO MIDDLE FOSSA (WRVU 47.04) (Left Head) Events Date Time Event Comment 04/11/2020 0725 0736 AN Verify 0736 Start 0736 An Start Data 0745 An Induction 0749 An Intubation 0753 Quick Note Lumber drain per neurosurgery 0823 Anesthesia Ready 0839 ABG Data Arterial Blood G as result: pH 7.43 pCO2 34 pO2 %O2 Sat 99 FiO2 95 HCO3 21 BE -2.6 Hb 13.9 K 4.2 Gluco se 93 Lactate 1.5 0845 Procedure Start 0903 Break/Relief In I assumed care f or Break Relief before which we: 1. Identifie d the patient 2. Identified the responsible provider(s) 3. Reviewed the pertinent medica l history 4. Discussed the surgical plan an d course 5. Reviewed intra-op anesthesia manag ement and issues during anesthesia 6. Se t expectations for the relief (and/or post-pro cedure) period 7. Allowed opportunity for questions and acknowledgement of understanding Dee Kilpatrick, PAPER MACHINE SUPERVISOR 0910 an jose elias now Lumbar drain ope silas. 0921 Break/Relief Out 1021 Quick Note Brief period of asystole followed by sinus bradycardia with a rate in the mid 30's, surgeon alerted and episode resolved spontaneously. N ormotensive throughout. 1030 ABG Data Arterial Blood G as result: pH 7.42 pCO2 35 pO2 314 %O2 Sat 99 FiO2 56 HCO3 22 BE -1.6 Hb 13.6 K 4.1 Gluco se 108 Lactate 1.4 1328 Extubation/LMA Out Following com mands, Vt > 400, oropharynx suctioned and ex tubated to facemask without event. 1331 an stop data 1332 Transport 1347 Recovery or ICU Handoff Patient care was transferred to the destination unit staff after review of the patient's medica l history, current anesthetic/surgi bob status and plan, according to the Provider Handoff Checklist. 1348 Stop Name Total Midazolam 2 mg fentaNYL 100 mcg Propofol 300 mg ePHEDrine 5 mg Ondansetron 4 mg Dexamethasone 12 mg Propofol INF 2,106.43 mg REMIfentanil INF 3.59 mg Succinylcholine 120 mg ceFAZolin (Ancef) 2g in dextrose 5% 100 mL 4 g PHENYLephrine INF 5,150 mcg HYDROmorphone 0.4 mg Sodium Chloride 0.9% 1,000 mL lactated ringers infusion 700 mL Agents Name O2 Air N2O Blood No blood administrations on file. Lines, Drains, and Airways Type Details Placement Removal PIV 04/11/20; 0628; median 04/11/20 0628 by 04/13/20 1736 by cubital vein (antecubital Summer, Wendi Aguayo, Carol Wiley, MICHAEL fossa), left; RN [id number] catheter system; 20 gauge; MICHAEL Reinoso ; distraction, appears comfortable, complained of discomfort; no longer indicated, removed per policy/procedure, catheter/device intact; 04/13/20; 1736 ETT Mask Ventilation: Not 04/11/20 0749 by 04/11/20 1328 by Attempted (0); ETT Type: Dylan Gomez, Dylan Mccormack, Cuffed, Oral; ETT Size: PAPER MACHINE SUPERVISOR PAPER MACHINE SUPERVISOR 7.5 mm; Mac Blade: 4; Notes: Asleep, Pre-O2, Stylette, RSI; Attempts: 2 (first attempt by medical student without view); Laryngoscopy Grade: 1; ETT Placement Verified By: Auscultation, Capnometry, Visual; Secured at Teeth: 24 cm; Inserted by: Patricia, RICARDA Lumbar/CSF Drain 04/11/20; 0755; 04/12/20; 04/11/20 0755 by 03/15 10/02 1700 by 1700 Marie Erwin Lunce, Alis sha J RN RN PIV 04/11/20; 0815; metacarpal 04/11/20 0815 by 10/02 1737 by vein (top of hand), left; Dylan Gomez Pa rker, Carol Wiley, RN [id number] catheter PAPER MACHINE SUPERVISOR system; 20 gauge; no longer indicated, catheter/device intact, removed per policy/procedure; 04/13/20; 1737 Arterial Line 04/11/20; 0831; radial 04/11/20 0831 by 04/13/20 0000 by artery, right; 20 gauge; Dylan Gomez, Jelly Cristina Drost, CRNA; Sterile Prep, RICARDA RN Sterile Gloves; 04/13/20; 0000 Incision 04/11/20; 0848; head; 04/11/20 0848 by 04/13/20 1743 by edges approximated no new Marie Erwin P arker, Amanda J, RN drainage bertha intact pt RN verbalized understanding of wound care; 04/13/20; 1743 Incision 04/11/20; 1147; lower 04/11/20 1147 by 04/13/20 1742 by quadrant; dsg c/d/i; Marie Erwin Parker, Amanda J, RN 04/13/20; 1742 RN documented in this encounter Social History Tobacco Use Types Packs/Day Years Used Date Former Smoker Smokeless Tobacco: Never Used Comments: quit a few years ago Alcohol Use Standard Drinks/Week Comments Not Currently 0 (1 standard drink = 0.6 oz pure alcoho l) Sex Assigned at Date Recorded Not on file documented as of this encounter OR Notes Anesthesia Postprocedure Evaluation - Kaylen Potts MD - 04/11/2020 2:00 PM EDT Department of Anesthesiology Post-procedure Note Patient: Flavio Hamm Procedure Summary Date: 04/11/20 Room / Location: [facility] OR [facility] MAIN OR Anesthesia Start: 735 Anesthesia Stop: 1348 Procedures: @CRANI-INFRATEMPORAL APPROACH TO MIDDLE FOSSA (WRVU 47.04) (Left Head) SPINAL PUNCTURE, THERAPEUTIC, FOR DRAINAGE OF CSF (LUMBAR DRAIN PLACEMENT) (WRVU 1.35) (N/A Back) MICROSCOPE USE (WRVU 3.46) (N/A ) @CRANI-EXC ORRESECTION EXTRADURAL LESION-ANT. FOSSA (WRVU 32.57) (N/A Head) @CRANIECTOMY,TRANSTEMPORAL- ACOUSTIC NEUROMA (WRVU 54.08) (Head) Diagnosis: Vestibular schwannoma (vestib schwannoma) Surgeon: Omar Jacobs MD; Christopher Welsh MD Responsible Provider: Kaylen Potts MD Anesthesia Type: general ASA Status: 2 All Anesthesia Providers: Anesthesiologist: Kaylen Potts MD PAPER MACHINE SUPERVISOR: Dylan Gomez CRNA Vitals Value Taken Time BP Temp Pulse Resp SpO2 Pain Level Patient Location: PACU/SD Level of Consciousness: Awake and Alert Pain Management: Satisfactory Analgesia PONV: None Cardiovascular Status: At Baseline Respiratory Status: Stable Respiratory Status and Room Air Postoperative Fluid Status: Intravascular EUvolemia Possible Anesthetic Complications: NONE apparent at time of evaluation Final Primary Anesthesia Type: General (The anesthetic type performed was the same as planned.) Comments: Mr. Hamm tolerated the procedure well and without complication. Pt alert and oriented. VSS on RA. Anesthesia Preprocedure Evaluation - Kaylen Potts MD - 04/10/2020 3:23 PM EDT Pre-Anesthesia Evaluation for: Flavio Hamm a 39 y.o. male. Procedure(s): @CRANI-INFRATEMPORAL APPROACH TO MIDDLE FOSSA (WRVU 47.04) SPINAL PUNCTURE, THERAPEUTIC, FOR DRAINAGE OF CSF (LUMBAR DRAIN PLACEMENT) (WRVU 1.35) MICROSCOPE USE (WRVU 3.46) @CRANI-EXC ORRESECTION EXTRADURAL LESION-ANT. FOSSA (WRVU 32.57) @CRANIECTOMY,TRANSTEMPORAL- ACOUSTIC NEUROMA (WRVU 54.08) Patient Active Problem List Diagnosis ??? Vestibular schwannoma History reviewed. No pertinent past medical history. History reviewed. No pertinent surgical history. Social History Tobacco Use ??? Smoking status: Former Smoker ??? Smokeless tobacco: Never Used ??? Tobacco comment: quit a few years ago Substance Use Topics ??? Alcohol use: Not Currently Social History Substance and Sexual Activity Drug Use Never Allergies Allergen Reactions ??? Amoxicillin-Pot Clavulanate Angioedema ??? Bupropion ??? Naproxen Other (See Comments) Throat swelled 08/18 ??? Sulfa (Sulfonamide Antibiotics) Medications: MAR and/or home medications have been reviewed. Physical Exam: There were no vitals filed for this visit. There is no height or weight on file to calculate BMI. Airway Assessment: Mallampati: II TM distance: >3 FB Neck ROM: full Cardiovascular Assessment: Pulmonary Assessment: Dental Assessment: - normal exam Misc Assessment: IV access: Peripheral line Anesthesia Plan: ASA 2 general, with a(n) intravenous induction Mr. Hamm is a 39 year old male with PMHx of remote tobacco abuse and a vestibular schwannoma scheduled for excision scheduled for infratemporal craniotomy/excision. Allergies to Augmentin, Wellbutrin, Naproxen and sulfa reviewed. Plan for preoperative Tylenol, GETA/TIVA (neuromonitoring), large bore PIV access, invasive BP monitoring, lumbar drain per NS. Risks were discussed at length, and all questions and concerns were addressed. Consent was obtained, and the appropriate paperwork was placed in the patient's chart. Region - Other Informed Consent: Anesthetic plan and risks discussed with patient and spouse. Use of blood products discussed with patient and spouse who consented to blood products. Plan discussed with PAPER MACHINE SUPERVISOR. PAT Clinic Note documented in this encounter Plan of Treatment Not on filedocumented as of this encounter Visit Diagnoses Not on filedocumented in this encounter Administered Medications Inactive Administered Medications - up to 3 most recent administrations Medication Order MAR Action Action Date Dose Rate Site ceFAZolin (Ancef) 2g in dextrose 5% Given 04/11/2020 11:47 AM ED T 2 g 100 mL 2 g, Intravenous, ONCE, 1 dose, On Jessica 04/11/20 at 0745, Administer over 30 Minutes, Day of Surgery (Day of Procedure), Indication for (Active or Suspected): Prophylaxis Given 04/11/2020 7:54 AM EDT 2 g dexamethasone (Decadron) injection Given 04/11/2020 7:45 AM EDT 12 mg PRN, Starting on Jessica 04/11/20 at 0745, Until Jessica 04/11/20 at 1350, Anesthesia Intra-op, Routine ePHEDrine 5 mg/mL multi-dose injection Given 04/11/2020 10:12 AM EDT 5 mg PRN, Starting on Jessica 04/11/20 at 1012, Until Jessica 04/11/20 at 1350, Anesthesia Intra-op, Routine fentaNYL 50 mcg/mL multi-dose injection Given 04/11/2020 7:45 AM EDT 50 mcg PRN, Starting on Jessica 7/30/20 at 0736, Until Jessica 04/11/20 at 1350, Anesthesia Intra-op, Routine Given 04/11/2020 7:36 AM EDT 50 mcg HYDROmorphone (DILAUDID) injection Given 04/11/2020 1:10 PM EDT 0.4 mg PRN, Starting on Jessica 04/11/20 at 1310, Until Jessica 04/11/20 at 1350, Anesthesia Intra-op, Routine lactated ringers infusion New Bag 04/11/2020 7:36 AM EDT 1,000 mL, at 100 mL/hr, Intravenous, CONTINUOUS, Starting on Jessica 04/11/20 at 0645, Until Jessica 04/11/20 at 1400, Day of Surgery (Day of Procedure) New Bag 04/11/2020 6:29 AM EDT 1,000 mLs 100 mL/hr midazolam (PF) (VERSED) multi-dose injec tion Given 04/11/2020 7:36 AM EDT 2 mg PRN, Starting on Jessica 04/11/20 at 0736, Until Jessica 04/11/20 at 1350, Anesthesia Intra-op, Routine ondansetron (ZOFRAN) injection Given 04/11/2020 12:35 PM EDT 4 mg PRN, Starting on Jessica 04/11/20 at 1235, Until Jessica 04/11/20 at 1350, Anesthesia Intra-op, Routine PHENYLephrine Rate/Dose Change 04/11/2020 1:01 PM 20 mcg/min 15 mL/hr (EVELYN-SYNEPHRINE) 20 mg in EDT sodium chloride 250 mL (standard ADULT & Pedi greater than 20kg) infusion CONTINUOUS PRN, Starting on Jessica 04/11/20 at 0755, Until Jessica 04/11/20 at 1350, Anesthesia Intra-op, Routine Rate/Dose Change 04/11/2020 12:36 PM EDT 40 mcg/min 30 mL/hr Restarted 04/11/2020 12:22 PM EDT 20 mcg/min 15 mL/hr propofol (DIPRIVAN) 10 mg/mL bolus injection Given 0 1:17 PM EDT 50 mg (Anesthesia) PRN, Starting on Jessica 04/11/20 at 0745, Until Jessica 04/11/20 at 1350, Anesthesia Intra-op Given 04/11/2020 7:45 AM EDT 250 mg propofol (DIPRIVAN) Rate/Dose 04/11/2020 12:59 60 mcg/kg/min 27.8 mL /hr infusion Change PM EDT CONTINUOUS PRN, Starting on Jessica 04/11/20 at 0745, Until Jessica 04/11/20 at 1350, Anesthesia Intra-op, Routine Rate/Dose Change 04/11/2020 12:26 PM EDT 85 mcg/kg/min 39.4 mL/hr Rate/Dose Change 04/11/2020 12:08 PM EDT 100 mcg/kg/min 46.4 mL/hr remifentanil (ULTIVA) 0.02 Rate/Dose 04/11/2020 0.05 mcg/kg/min 11.6 mL/hr mg/mL IV infusion Change 12:42 PM EDT (ANESTHESIA) CONTINUOUS PRN, Starting on Jessica 04/11/20 at 0745, Until Jessica 04/11/20 at 1350, Anesthesia Intra-op Rate/Dose Change 04/11/2020 12:14 PM EDT 0.15 mcg/kg/min 34.8 mL/hr Rate/Dose Change 04/11/2020 10:23 AM EDT 0.1 mcg/kg/min 23.2 mL/hr sodium chloride 0.9% infusion New Bag 04/11/2020 12:17 PM EDT CONTINUOUS PRN, Starting on Jessica 04/11/20 at 0752, Until Jessica 04/11/20 at 1350, Anesthesia Intra-op New Bag 04/11/2020 7:52 AM EDT succinylcholine chloride (Quelicin) inje ction Given 04/11/2020 7:45 AM EDT 120 mg PRN, Starting on Jessica 04/11/20 at 0745, Until Jessica 04/11/20 at 1350, Anesthesia Intra-op, Routine documented in this encounter Care Teams Outdoor Guide Relationship Specialty Start Date End Date Syed Leong MD PCP - General Family Medicine 02/28/20 08/04/20 [address] [facility] [address] [place] [phone] documented as of this encounter
--- OUTSIDE RECORDS SUMMARY | 2022-05-22 15:17 | XMS_ITS | Encounter Summary ---
:1980 Author Organization [facility] [place] [address] Care Team Providers Name Role Phone Syed Leong MD Primary Care Provider Reason for Referral Diagnostic Test (Routine) - Closed Specialty Diagnoses / Procedures Referred By Contact Refer red To Contact Radiology Diagnoses Vestibular schwannoma Facial paralysis Disequilibrium S/P excision of acoustic neuroma Tristan Zuleta PA [facility] Rad Mri Procedures MRI Brain wwo Contrast (Generic) [facility] [place] [address] [place] [address] Referral ID Status Reason Start Date Expiration Date Visits V isits Requested Authorized [id number] Closed Specialty 05/03/2020 11/03/2021 1 1 Service Requested Reason for Visit Diagnostic Test (Routine) - Closed Specialty Diagnoses / Procedures Referred By Contact Refer red To Contact Radiology Diagnoses Vestibular schwannoma Facial paralysis Disequilibrium S/P excision of acoustic neuroma Tristan Zuleta PA [facility] Rad Mri Procedures MRI Brain wwo Contrast (Generic) [facility] [place] [address] [place] [address] Referral ID Status Reason Start Date Expiration Date Visits V isits Requested Authorized [id number] Closed Specialty 05/03/2020 11/03/2021 1 1 Service Requested Encounter Details Date Type Department Care Team Description 08/02/2020 Hospital Encounter MRI [place] [facility] Christopher Welsh Vestibular schwannoma; [facility] MD Yanni Facial paralysis; [facility] [place], [place] CENTER S/P excision of acoustic neuroma [id number] OTOLARYNGOLOGY [phone] [place] [address] Social History Tobacco Use Types Packs/Day Years Used Date Former Smoker Smokeless Tobacco: Never Used Comments: quit a few years ago Alcohol Use Standard Drinks/Week Comments Not Currently 0 (1 standard drink = 0.6 oz pure alcoho l) Sex Assigned at Date Recorded Not on file documented as of this encounter Discharge Instructions Discharge InstructionsChristina Gambino RN - 08/02/2020 11:22 AM EST Flavio Hamm [id number] August 02, 2020 [facility] INTERVENTIONAL RADIOLOGY DEPARTMENT 1. You have received IV medication before and/or during your procedure, which affects judgment and reaction time. 2. Do not drive, operate machinery, drink alcoholic beverages, or make important decisions for 24 hours. 3. Be careful on stairs, as you may be unsteady on your feet. 4. You may eat a regular diet as tolerated. 5. Do not smoke if you are alone. 6. IV site- slight redness or tenderness is normal, you can use warm compresses. If tenderness and redness increases or foul drainage occours, please contact your M.D. Call with any questions or concerns: During regular office hours call: [phone]. If it is after regular office hours, weekends or holidays, please call [phone] and ask to speak to the [employer] Developer rehabilitation consultant for Interventional Radiology. Revised 10/25/19 documented in this encounter Medications at Time [...] 25 mg Take 75 mg by 0 0612/201911/29/2020 Tablet mouth as needed. ondansetron (Zofran) 4 [...] documented as of this encounter Progress Notes Christina Gambino RN - 08/02/2020 10:45 AM EST MRI IV SEDATION NURSING DATABASE Name: FLAVIO HAMM Date of : 1980 AGE: 39 y.o. Address: [address] [place] [id number] (home) Mobile: Telephone Information: Referring Provider: Tristan Zuleta Allergies Allergen Reactions ??? Amoxicillin-Pot Clavulanate Angioedema ??? Bupropion ??? Naproxen Other (See Comments) Throat swelled 08/18 ??? Sulfa (Sulfonamide Antibiotics) SCAN REQUESTED: MRI Brain w/wo, 60 minutes ON SCANNER #: 6 1. Have you ever had an MRI? Yes 2. Did you have medication for the prior MRI? See IV sedation notes 3. Are you claustrophobic? Yes 4. Can you ride in an elevator? n/a 5. Do you snore, use CPAP, or on home O2 or have any breathing problems? No 6. Do you have pain or anxiety? Do you take pain meds on a regular basis?no 7. Can you lay flat? yes Anesthesia is needed for Pt's with ALS, involuntary tremors, uses CPAP/Sleep apnea, failed IV sedation, Cognitive impairment? n/a ( AA) You must have a highway truck driver present when you check in. This patient has been informed that they require a highway truck driver to drive them home after this procedure and that the highway truck driver must stay inthe Building during the MRI. In the absence of a highway truck driver, IR will not be able to sedate for your scan. Ptverbalized understanding of these instructions during the pre-procedure education via phone. Yes PRIOR SCAN DATE/S ?SEDATION TYPE ? SUCCESSFUL MRI's at [facility] (2) Valium, IV sedation (ED) Valium - no, ED IV sedation, yes 01/19/20 MRI Cervical Spine wo contrast Fentanyl??250mcg IV, versed??4??mg IV pass 03/28/20 MRI Brain wwo & Right Shoulder Fentanyl 250 mcg IV Versed 4 mg IV pass 08/02/20 MRI Brain wwo Fentanyl 150 mcg IV, Versed 3 mg IV Yes ? Laboratory Results: Lab Results Component Value Date CREATININE 0.81 04/13/2020 Lab Results Component Value Date K 4.1 04/13/2020 Pertinent PMH: Patient Active Problem List Diagnosis Code ??? Vestibular schwannoma D33.3 Pertinent PSH: Past Surgical History: Procedure Laterality Date ??? PRO EXCIS TRANSTEMP CP ANGLE TUMOR 04/11/2020 @CRANIECTOMY,TRANSTEMPORAL- ACOUSTIC NEUROMA (WRVU 54.08) performed by Christopher Welsh MD at [facility] MAIN OR ??? PRO INFRATEMPORAL APPROACH/PREAURICULAR Left 04/11/2020 @CRANI-INFRATEMPORAL APPROACH TO MIDDLE FOSSA (WRVU 47.04) performed by Omar Jacobs MD at [facility] MAIN OR ??? PRO MICROSURG TECHNIQUES, REQ OPER MICROSCOPE N/A 04/11/2020 MICROSCOPE USE (WRVU 3.46) performed by Omar Jacobs MD at [facility] MAIN OR ??? PRO RESECT INFRATEMP FOSSA/EXTRADURL N/A 04/11/2020 @CRANI-EXC ORRESECTION EXTRADURAL LESION-ANT. FOSSA (WRVU 32.57) performed by Omar Jacobs MDat [facility] MAIN OR ??? PRO THERAPEUTIC SPINAL PUNCTURE DRAINAGE CEREBROSPINAL FLUID N/A 04/11/2020 SPINAL PUNCTURE, THERAPEUTIC, FOR DRAINAGE OF CSF (LUMBAR DRAIN PLACEMENT) (WRVU 1.35) performed byOmar Jacobs MD at [facility] MAIN OR Medications: Prior to Admission medications Medication Sig Start Date End Date Taking? Authorizing Provider traMADoL (Ultram) 50 mg Tablet Take 1 tablet by mouth every 8 hours as needed for Pain. Patient not taking: Reported on 05/03/2020 04/26/20 Na Gr APRN predniSONE (Deltasone) 10 mg Tablet Take 5 tabs/d x 3 d, 4 tabs/d x 3 d, 3 tabs/d x 3 d, 2 tabs/d x 3 d, 1 tab/d x 3 d, then 1/2 tab/d x 3 d 04/25/20 Christopher Welsh MD amitriptyline (Elavil) 25 mg Tablet Take 75 mg by mouth as needed. 02/15/20 PROVIDER, HISTORICAL ondansetron (Zofran) 4 mg Tablet Take 1-2 tablets by mouth every 8 hours as needed. 04/22/20 Elli, Nitish P, PA carboxymethylcellulose (REFRESH PLUS) 0.5 % Dropperette Place 1 drop into the left eye 4 times daily. Patient not taking: Reported on 05/03/2020 04/13/20 Mikael Peralta Jr., MD acetaminophen (Tylenol) 325 mg Tablet Take 2 tablets by mouth every 4 hours as needed. Patient not taking: Reported on 05/03/2020 04/13/20 Lizzie Singh MD melatonin 3 mg Tablet Take 2 tablets by mouth nightly. Patient not taking: Reported on 05/03/2020 04/13/20 Lizzie Singh MD senna-docusate (Pericolace) 8.6-50 mg Tablet Take 2 tablets by mouth 2 times daily. Patient not taking: Reported on 05/03/2020 04/13/20 Lizzie Singh MD eplerenone (Inspra) 25 mg Tablet Take 25 mg by mouth 2 times daily. PROVIDER, HISTORICAL ibuprofen (Advil;Motrin) 600 mg Tablet Take 600 mg by mouth every 6 hours as needed. PROVIDER, HISTORICAL omeprazole (PriLOSEC) 40 mg Capsule, Delayed Release(E.C.) Take 40 mg by mouth daily. 10/06/19 PROVIDER, HISTORICAL Revised 02/08/18 documented in this encounter Plan of Treatment Not on filedocumented as of this encounter Procedures Procedure Name Priority Date/Time Associated Diagnosis Comme nts MRI BRAIN O Routine 08/02/2020 11:16 AM Vestibular Results for this CONTRAST (GENERIC) EST schwannoma procedure are in Facial paralysis the results Disequilibrium section. 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 - Titration dose 25-50 mcg IV, (based on patient response) every 3 minutes PRN, to maintain procedural pain less than 2 per pain Scale. Maximum dose: 50 mcg/dose, 250 mcg/hour For use in Interventional Radiology (IR) only for procedural sedation with direct provider supervision and verbal order., Angio/IR (Day of Procedure), Routine Given 08/02/2020 10:16 AM EST 50 mcg Given 08/02/2020 10:13 AM EST 50 mcg midazolam (PF) (VERSED) multi-dose injection Given 0 10:21 AM EST 1 mg 0.5-1 mg 0.5-1 mg, Intravenous, EVERY 3 MIN PRN, Starting on Wed08/02/20 at 0957, Until Wed08/02/20 at 1153, Sleep, - Start dose; 1 mg (Reduce dose to 0.5 mg if history of sedation sensitivity). - Titration dose: 0.5 mg - 1 mg (based on patient response) every 3 minutes PRN to obtain RASS score of -3. Maximum dose: 1 mg per dose, 5 mg/hour. For use in Interventional Radiology (IR) only for procedural sedation with direct provider supervision and verbal order., Angio/IR (Day of Procedure), Routine Given 08/02/2020 10:16 AM EST 1 mg Given 08/02/2020 10:13 AM EST 1 mg sodium chloride 0.9 % (flush) flush 5 mL Given 08/02/2020 10:13 AM EST 5 mLs 5 mL, Intravenous, 2 TIMES DAILY, First dose on Wed08/02/20 at 1015, Until Discontinued, Angio/IR (Day of Procedure), Routine documented in this encounter Care Teams Recreation Worker Relationship Specialty Start Date End Date Syed Leong MD PCP - General Family Medicine 02/28/20 08/04/20 [address] [facility] [address] [place] [address] documented as of this encounter
--- OUTSIDE RECORDS SUMMARY | 2022-05-22 15:17 | XMS_ITS | Encounter Summary ---
:1980 Author Organization [facility] [place] [address] Care Team Providers Name Role Phone Syed Leong MD Primary Care Provider Encounter Details Date Type Department Care Team Description 04/15/2020 Telephone Neurosurgery at [facility] [place] [address] Social History Tobacco Use Types Packs/Day Years Used Date Former Smoker Smokeless Tobacco: Never Used Comments: quit a few years ago Alcohol Use Standard Drinks/Week Comments Not Currently 0 (1 standard drink = 0.6 oz pure alcoho l) Sex Assigned at Date Recorded Not on file documented as of this encounter Miscellaneous Notes Telephone Encounter - Jelly Barr - 05/06/2020 2:21 PM EDT Scheduled TOV with DONAL for 05/21, LM for pt. Telephone Encounter - Jelly Barr - 04/25/2020 4:13 PM EDT LM for pt to call back to schedule TOV with DONAL. Telephone Encounter - Jelly Barr - 04/24/2020 4:04 PM EDT Need to schedule TOV with DONAL Faxed d/c summary Called [facility] office spoke to Mai hidalgo scheduled for 04/26. Telephone Encounter - Mariya Adan - 04/15/2020 8:55 AM EDT Patient needs f/u appointment(s): With RN on/around 04/24- 10-14 day HCK, suture removal, s/p Left middle fossa craniotomy for tumor resection; (donna Welsh) no imaging With DONAL on/around 05/13-05/27 4-6w TOV, s/p Left middle fossa craniotomy for tumor resection; (donna Welsh), no imaging 1. Contact Mai ([phone]) for f/u appt w Dr. Vaughan (Ophthalmoloist) 2. Fax discharge summary to [phone] ~~~~~~~~~~~~~~~~~~~~~~~~~~~~~~~~~~~~~~~~~~~~~~~~~~~~~~~~~~ Lizzie Singh MD Sent: Melissa April 14, 2020 11:02 AM To: P [facility] Neurosurgery [place] ?? Message Fam Juan will need a telehealth visit with Dr. Jacobs in 4-6 wks, please. ??No imaging. ??Also, can we please contact Mai ([phone]) to schedule a follow up appointment with Dr. Vaughan (Ophthalmoloist) in 4-6 weeks and please fax a copy of the discharge summary to [phone]? Thank you, Lizzie Burton MD Sent: Melissa April 14, 2020 11:03 AM To: P [facility] Neurosurgery [place] ?? Message Fam Juan will also need a 10-14 day follow up for a wound check/suture removal. ??Thanks Telephone Encounter - Mariya Adan - 04/15/2020 8:55 AM EDT ----- Message from Lizzie Singh MD sent at 04/14/2020 11:02 AM EDT ----- Fam Juan will need a telehealth visit with Dr. Jacobs in 4-6 wks, please. No imaging. Also, can we please contact Mai ([phone]) to schedule a follow up appointment with Dr. Vaughan (Ophthalmoloist) in 4-6 weeks and please fax a copy of the discharge summary to [phone]? Thank you, Lizzie documented in this encounter Plan of Treatment Not on filedocumented as of this encounter Visit Diagnoses Not on filedocumented in this encounter Care Teams Special Agent Secret Service Relationship Specialty Start Date End Date Syed Leong MD PCP - General Family Medicine 02/28/20 08/04/20 [address] [facility] [address] [place] [id number] documented as of this encounter
--- OUTSIDE RECORDS SUMMARY | 2022-05-22 15:17 | XMS_ITS | Encounter Summary ---
:1980 [address] [facility] [place] [address] Care Team Providers Name Role Phone Syed [...] Expiration Date Visits Requ ested Visits Authorized [id number] 1 1 Encounter Details Date Type Department Care Team Description 04/11/2020 Surgery Main Operating Room Tiki Jacobs, @Jesse NESHA-INFRATEMPORAL Iesha Pardo MD APPROACH TO [facility] FOSSA (WRVU 47.04) [facility] [address] [place] [address] [place] [address] [phone] (Wo rk) Social History Tobacco Use Types [...] Sign Reading Time Taken Comments Blood Pressure 140/96 04/11/2020 6:19 AM EDT Pulse 72 04/11/2020 6:19 AM EDT Temperature 36.3 ??C (97.3 ??F) 04/11/2020 6:19 AM EDT Respiratory Rate 18 04/11/2020 6:19 AM EDT Oxygen Saturation 100% 04/11/2020 6:19 AM EDT Inhaled Oxygen Concentration - - [...] problems in left eye. Seen byophthalmology at [facility] with Dx of Central serous retinopathy. He occasionally has episodes of left eye jumping around. Has for years had occasional twitching of eyes with stress and continues to noticethat L>R lately. Had MRI in Feb with Dx of Left IAC acoustic neuroma. [...] would like to review the notes form [facility] Ophthalmology as well. 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 Small volume pneumocephalus which is within [...] this report, please contact the number below. Mri Brain Wwo Contrast (generic) Result Date: 03/29/2020 EXAMINATION: MRI BRAIN WWO CONTRAST (GENERIC) CLINICAL HISTORY: Brain/KENO CLERK neoplasm, assess treatmentresponse follow up left acoustic [...] the number below. Electronically signed by: [facility] ([phone]), at 03/29/2020 8:45 AM Mri Shoulder Wo [...] this report, please contact the number below. Pending Studies and Lab Data: No current labs Discharge Condition: Stable Discharge to: Home Future Appointments and Orders Future Appointments and Orders Future Appointments Provider Department Dept Phone 05/03/2020 1:00 PM Rosa Welsh MD Otolaryngology at [facility] Arrive at: Farm Operations Technical Director Area [phone] Discharge Medications: Your Medications New Medications Dose [...] Primary Care Provider or with the Neurosurgery CASE OPERATOR/RN. Imaging: No follow-up imaging needed. Outpatient referrals: [...] antiplatelet, anticoagulant, and non-steroidal anti-inflammatory (NSAIDs)drugs. Common xznw-zkn-ojlhscr medications which should be avoided include Aspirin, [...] to pass. These medications can be obtained bybz-lfz-zhrsgbb and their use is recommended on an [...] your Primary Care Provider or withthe Neurosurgery CASE OPERATOR/RN. Appointments: [x] Please follow up in 4-6 weeks via a TeleHealth visit with Dr. Jacobs. Please call the Neurosurgery Office at [phone] if you do not receive a scheduled [...] On weekends or after office hours: Call [phone] and ask the nitroglycerin nitrator operator batch to page the NeurosurgeryResident coagulation operator. IMPORTANT PHONE NUMBERS: Outpatient Nurse (Kellie Cardona) Inpatient Nurses Neurosurgical Resident On-Call (after 5pm or before 8am) Neurosurgery offices (Wednesday through Wednesday between 8am-5pm): Adult Neurosurgery Dr. Jarek Oliveira Pediatric Neurosurgery Dr. Nitish Guevara Associate Providers Delia Perez, Nurse Practitioner Nitish Calloway, Physician As400 Operator Jovan Xiong, Nurse Practitioner Anna Crenshaw, Nurse Practitioner Tameka Weems, Nurse Practitioner Na Pabon, Nurse Practitioner * Your surgeon may not be weight caller, so be ready to tell about yourself and your surgery when you call, especially after hours or on the weekend. Lizzie Singh MD 04/13/2020 4:11 PM [facility] Neurosurgery documented in this encounter Discharge Instructions [...] antiplatelet, anticoagulant, and non-steroidal anti-inflammatory (NSAIDs)drugs. Common spro-qso-phahjdb medications which should be avoided include Aspirin, [...] to pass. These medications can be obtained knjg-eyy-vlsmtnt and their use is recommended on an [...] your Primary Care Provider or withthe Neurosurgery CASE OPERATOR/RN. Appointments: [x] Please follow up in 4-6 weeks via a TeleHealth visit with Dr. Jacobs. Please call the Neurosurgery Office at [phone] if you do not receive a scheduled [...] 25 mg Take 75 mg by 0 06/12/201911/29/2020 Tablet mouth as needed. white petrolatum-mineral oil [...] symptom severity -Upon discharge, please contact Mai ([phone]) to schedule a follow up appointment with Dr. Vaughan in 4-6 weeks and please fax a copy of the discharge summary to [phone] - OK to discharge from ENT standpoint Mikael Peralta Jr, MD, PGY5 04/13/20 10:35 AM ENT Team Pager: [phone] Nadir Rodney MD - 04/13/2020 10:08 AM [...] Hold anticoagulation and antiplatelet -On discharge patient's Grounds Cleaner Dr. Conley is requesting copy of discharge note and a 4-6 week follow-up appointment -Eyes drops and eye patch per ENT -ENT recs trying to resume steroids one more time -Plan for discharge home today -DISPOSITION: 5W -FULL CODE PLEASE PAGE [phone] WITH QUESTIONS Active Hospital Problems Diagnosis ??? [...] related orders have been discontinued. Please page [phone] with questions regarding this patient. Winifred Gomes [...] ice cream while inpatient. Will provide snackof luxembourgish yogurt in between meals. Monitor weight. Encourage good oral intake. Support and encouragement provided. Pt was resting at time of visit. Pt c/o severe nausea with vomiting and decreased appetite. Pt agreeable to Ensure and luxembourgish yogurt to promote PO intake. Encouraged pt [...] Food allergies:no known food allergies Chewing/Swallowing difficulty: BIOMEDICAL ENGINEERING AIDE following for reported difficulties. Pt reports no difficulties at time of visit. Nausea/Vomiting: significant nausea and vomiting Patient education / questions: all nutrition related questions answered at this time Nutrition services to follow weekly through hospital course unless consulted in the interim. Daksha Humphreys Pager: [phone] Nohemy Yang MD - 04/12/2020 11:34 AM EDT The ENT team was contacted by the patient's combination saw operator, Dr. Vaughan. Who is been treating thepatient for L central serous retinopathy. He asks that he be informed of any vision changes the patient experiences while inpatient. I assessed the patient this afternoon and he currently denies any changes to his vision. Upon discharge, please contact Mai ([phone]) to schedule a follow up appointment with Dr. Vaughan in 4-6 weeks and please fax a copy of the discharge summary to [phone]. Winifred Gomes PA - 04/12/2020 7:42 AM [...] appropriate. - Lumbar drain remains clamped - ISNCLAIR continues this AM MEDICATIONS: Scheduled Meds: ??? [...] around lumbar drain LABS: Recent Labs 04/12/20 0144 WBC 17.6* HGB 12.6* PLATELET 207 Recent Labs 04/12/20 0144 NA 140 K 4.1 CL 105 CO2 [...] 48H (to end 04/14) -On discharge patient's Grounds Cleaner Dr. Conley is requesting copy of discharge note and a 4-6 week follow-up appointment -DISPOSITION: 5W -FULL CODE PLEASE PAGE [phone] WITH QUESTIONS Active Hospital Problems Diagnosis ??? [...] PGY1 04/12/20 7:21 AM ENT Team Pager: [phone] Associated attestation - Rosa Welsh MD - 04/12/2020 8:01 PM EDT I have discussed the case with the resident, reviewed the pertinent details in the chart, interviewed and examined the patient. I agree with the documented history, exam findings and management plan. Rosa Welsh MD [phone] Kobe Reynoso MD - 04/11/2020 4:58 PM [...] tolerated. -DISPOSITION: NCCU -FULL CODE PLEASE PAGE [phone] WITH QUESTIONS Active Hospital Problems Diagnosis ??? [...] Eyes: Normal extraocular motion, no nystagmus Mouth: Crowley mucous membranes, symmetric elevation of soft palate, [...] scheduled operation. Maryann Hill MD, PGY2, Pager [phone] 04/11/20 7:10 AM ENT Team Pager: [phone] documented in this encounter H&P Notes Wlibur Christy, OFFICE LEAD - 04/11/2020 7:25 AM EDT NEUROCRITICAL CARE HISTORY & PHYSICAL Date of Admission: 04/11/2020 5:58 AM HPI: Flavio Hamm is a 39 y.o. male w/ PMH of L acoustic neuroma and L central serous retinopathywho was experiencing unilateral tinnitus and hearing loss, presented to [facility] for elective acoustic neuroma removal. [...] Result Value Ref Range Surgical Pathology Report [id number] Location: OR; OR01; A The signing pathologist has (i) examined the relevant preparation(s) for the specimen(s) and (ii) rendered or confirmed the diagnosis(es). . Frozen Section FROZEN SECTION DIAGNOSIS (A-FS1) Smear and frozen section preparations on an IAC tumor: SCHWANNOMA Results phoned to Dr. aJcobs on 04/11/20 at 12:05 PM. Electronically signed by: Jhony Su MD Verified: 04/11/2020 Pathologist Performed at: -[facility] Dept. of Pathology, [place], [place] This intraoperative consultation should be interpreted as a preliminary diagnosis pending review of the entire specimen and special studies, if any. POCT Glucose Result Value Ref Range POC Glucose 105 65 - 199 mg/dL Results for FLAVIO HAMM ( ) as of 04/11/2020 07:46 Ref. Range 04/08/2020 11:26 SARS-CoV-2 RNA Latest Ref Range: Not Detected Not Detected SARS-Cov-2 RNA Source Unknown CASE OPERATOR Swab Imaging: No results found for this [...] tinnitus and hearing loss, presented to [facility] for elective acoustic neuroma removal. [...] Cardiopulmonary Resuscitation - Inpatient Dispo - ICU AKT Kobe Reynoso MD - 04/11/2020 7:13 AM EDT Neurosurgery Pre-operative H&P 04/11/2020 Flavio Hamm [id number] CC: Left vestibular schwannoma HPI: Flavio [...] - 04/11/2020 5:58 PM EDT NEURODIAGNOSTIC LAB[facility]ATORY [facility] INTRAOPERATIVE MONITORING REPORT Name: Flavio Hamm : [...] ipsilateral abductor digiti minimi muscles. CPT Codes: 41455 (EEG), 93426 (CN EMG unilateral 7 muscles), 77896 (JOSSY bilateral), 83001 (tcMEP upper extremity), 66808 (upper extremity SSEP bilateral), 45774 (IOM, 8 units), 69256 (IOM, 2 Units), Total IOM time: 3 [...] Cortes MD/PhD; Jermaine Carrasco PhD,CNIM; Kristin NAPOLES, CLTM, R.EEG/EP.T. Anesthesia: TIVA using propofol and opioid [...] Traumatic (GCS 9-12) (Adult) Intervention: Monitor/Manage Pain 04/12/20 0821 04/12/20199904/13/20 0546 Manage Acute Burn Pain Bowel [...] and ADLs]: Narinder Surveillance [continuous indirect monitoring]: Narinder Patient-specific fall prevention interventions for sensory deficits provided, if applicable: Yes CPG GOAL OUTCOME EVALUATION: Op Note - Rosa Welsh MD - 04/12/2020 7:24 PM EDT [facility] Operative Note Patient Name: Flavio Hamm : [id number] MR#: [id number] Case Date: 04/11/2020 Surgeon: Surgeon(s) and Role: [...] PATHOLOGY IAC Tumor for frozen section OR#1 [id number] vestib schwannoma IAC tumor excision YES, Please [...] Nair would be surrogate decision maker per [place] surrogate decision making law. Any patient receiving care at [facility] must abide by [place] law. The hierarchy for surrogate decision making [...] (i) The agent with financial power of associate attorney or a conservator appointed in accordance with RSA 464-A. (j) The guardian of the patient???s estate. Current Coping/Education/Information Needs: Per and nursing notes, pt cooperative with care, aware of his surroundings. Current Functional Ability: Bedrest. Head of bed at 30 degree, Lumbar drain intact. Functional Status Prior to Admission: Independent. 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 Home Environment: One story mobile home; lives with and four children ages 15,12,11 and eight years old Social & Family Supports/Community Resources: , maternal grand parents, friends. Behavioral Health History: denied. Substance Use/Abuse: denied. Other Pertinent/Service Specific Information: No. Health/Prescription Coverage: Primary Insurance: MEDICAID [place] Secondary Insurance: N/A Prescription Coverage: Yes. [facility]. Preferred Pharmacy: [facility]. Primary Care Provider: Syed Leong MD [phone] Patient/Caregiver Goals of Treatment: To return to [...] transition of care planning. Mercy Isabel RN [facility] [phone] Pager # [phone] Plan of Care - Caitlin Noble SLP [...] Pt was seen today for a follow-up BIOMEDICAL ENGINEERING AIDE visit. Assessment limited by fatigue and nausea. Oral mech exam significant for left facial droop, otherwise intact. Patient drinking small amounts of water without s/sx of significant dysphagia or aspiration. Reviewed swallow strategies with patient and . BIOMEDICAL ENGINEERING AIDE will follow up as indicated, please page [...] Speech Language Pathology: 9 Caitlin Noble MS, [facility]-BIOMEDICAL ENGINEERING AIDE Pager: [phone] Speech-Language Pathologist Inpatient Rehabilitation Medicine Plan of [...] crani. A&O x4. Slight L facial droop. SUQUAMISH left side. 5/5 strengthx4. Nx and vom [...] patient becomes more alert to take PO. BIOMEDICAL ENGINEERING AIDE will plan to follow up tomorrow morning for a more comprehensive assessment. Diagnosis: ? Oral dysphagia requiring ongoing assessment Recommendations: Diet: Regular solids, Thin liquids PO medications: whole with sip of liquid Aspiration precautions: ?? Feed only when alert ?? Upright position during meals and for at least 30 mins following ?? Excellent oral care Pt will benefit from continued BIOMEDICAL ENGINEERING AIDE services while hospitalized Speech Therapy Goals: (To [...] any questions or concerns. Caitlin Noble MS, [facility]-BIOMEDICAL ENGINEERING AIDE Pager: [phone] Speech-Language Pathologist Inpatient Rehabilitation Medicine Op Note - Tiki Jacobs MD - 04/11/2020 1:14 PM EDT [facility] Operative Note Patient Name: Flavio Hamm : [id number] MR#: [id number] Case Date: 04/11/2020 Surgeon: Surgeon(s) and Role: [...] 3.46) (N/A) @CRANI-EXC ORRESECTION EXTRADURAL LESION-ANT. FOSSA (WRU 32.57) (N/A) @CRANIECTOMY,TRANSTEMPORAL- ACOUSTIC NEUROMA ([facility] Anesthesia: General Estimated Blood Loss: [...] removed. The drain was attached to a Neolinear drainage system and clamped off. The tubing [...] EXTRADURAL LESION-ANT. FOSSA (WRVU 32.57) MICROSCOPE USE (WRU 04/11/2020 7:36 AM Vestibular 3.46) EDT schwannoma [...] (ABNORMAL) Differential, Automated (04/13/2020 12:00 AM EDT) Patholo gist Method Time Signature Neutrophils % 79.4 % [facility] Neutr Abs (ANC) 11.93 (H) 1.70 - [facility] 6.10 [facility] x10(3)/[facility] LABORATORY Lymphocytes % 12.3 % [facility] Lymphocytes Abs 1.8 0.9 - 3.2 [facility] x10(3)/[facility] LABORATORY Monocytes % 7.7 % [facility] Monocyte Abs 1.2 (H) 0.3 - 0.9 [facility] x10(3)/[facility] LABORATORY Eosinophils % 0.0 % [facility] Eosinophils Abs 0.0 0.0 - 0.4 [facility] x10(3)/[facility] LABORATORY Basophils % 0.1 % [facility] Basophils Abs 0.0 0.0 - 0.1 [facility] x10(3)/[facility] LABORATORY Immature Gran % 0.50 % [facility] Comment: Immature granulocytes(IG's)percentage an d absolute count will include metamyelocytes, myelocytes, and promyelo cytes. Blood smears from CBCs yielding IG's will be scanned manually for concor dance. If this scan disagrees with the automated IG or if promyelocytes are not ed, a manual differential will be performed. Lula Gran Abs 0.08 (H) 0.00 - 0.04 x10(3)/[facility] LABORATORY Specimen (Source) Anatomical Collection Method Collection Time Re ceived Time Location / / Volume Laterality Blood specimen 04/13/2020 04/13/2020 12 :12 (specimen) AM EDT Resulting Agency Comment Spec In Lab Winifred EPPS HEMATOLOGY ORDERABLES Performing Organization Address City/State/[place] [address] (ABNORMAL) Hemogram (04/13/2020 12:00 AM EDT) Analysis Performed At [facility] logist Time Signature WBC 15.0 (H) 4.0 - 9.5 [facility] x10(3)/[facility] LABORATORY RBC 4.13 (L) 4.58 - [facility] 5.54 [facility] x10(6)/[facility] LABORATORY Hemoglobin 12.5 (L) 13.7 - [facility] 16.5 gm/dL [facility] LABORATORY Hematocrit 36.6 (L) 40.5 - IESHA HORACE 48.5 % [facility]ORATORY MCV 88.6 82.9 - [facility] 93.1 [facility] LABORATORY MCH 30.3 27.5 - [facility] 32.1 pg [facility]ORATORY MCHC 34.2 32.0 - [facility] 35.7 gm/dL [facility] Platelets 177 145 - 357 [facility] x10(3)/[facility] LABORATORY RDWSD 40.2 36.0 - [facility] 45.0 [facility] LABORATORY RDWCV 12.4 11.4 - [facility] 13.8 % [facility] LABORATORY MPV 10.6 7.6 - 12.9 [facility] LABORATORY nRBC % Auto 0.0 % [facility] nRBC Abs Auto 0.000 0.000 - [facility] x10(3)/[facility] LABORATORY Specimen (Source) Anatomical Collection Method Collection Time Re ceived Time Location / / Volume Laterality Blood specimen 04/13/2020 04/13/2020 12 :12 (specimen) AM EDT Resulting Agency Comment Spec In Lab [facility]red EPPS HEMATOLOGY ORDERABLES Performing Organization Address City/State/[place] [address] Basic Metabolic Panel (non-fasting) (04/13/2020 12:00 AM EDT) P athologist Signature Glucose Lvl 114 65 - 199 [facility] mg/dL [facility] Comment: Diabetes: >=200 mg/dL plus symp toms BUN 10 10 - 20 mg/dL [facility] Creatinine 0.81 0.80 - 1.50 mg/dL [facility] Sodium 140 135 - 145 mmol/L [facility] Potassium 4.1 3.5 - 5.0 mmol/L [facility] Comment: Please note: ??Patients with WBC >100,00 0 may have falsely elevated Potassium levels. ??For accurate Potassium quantif ication in these patients send serum separator tube (gold top) for subsequent determinations. ??Contact the Clinical Chemistry Laboratory if there are any qu estions. Chloride 101 98 - 107 mmol/L [facility] CO2 26 22 - 31 mmol/L [facility] Anion Gap 13 5 - 15 mmol/L [facility] Calcium 9.4 8.5 - 10.5 mg/dL [facility] Estimated GFR 113 >=60 mL/min/1.73 m?? [facility] Comment: The eGFR was calculated using the CKD-EP I equation. As with all creatinine based estimates of kidney function, eGFR values calculated with the CKD-EPI equation are not accurate in patients wi th acute kidney failure, extremes of body mass or the acutely ill. http://[email or web address] eGFR 131 >=60 mL/min/1.73 m?? [facility] Comment: The eGFR was calculated using the CKD-EP I equation. As with all creatinine based estimates of kidney function, eGFR values calculated with the CKD-EPI equation are not accurate in patients wi th acute kidney failure, extremes of body mass or the acutely ill. http://[email or web address] Specimen (Source) Anatomical Collection Method Collection Time Re ceived Time Location / / Volume Laterality Blood specimen 04/13/2020 04/13/2020 12 :12 (specimen) AM EDT Resulting Agency Comment Spec In Lab Tiki Jacobs MD CHEMISTRY ORDERABLES Performing Organization Address City/State/[place] [address] Head wo Contrast [...] please contact e number below. ? Narrative 04/12/2020 12:18 PM EDT EXAMINATION: CT [...] this report, please contact e number below. Desiree Sood OFFICE LEAD IMG CT ORDERABLES (ABNORMAL) Differential, Automated (04/12/2020 1:44 AM EDT) [facility] Method Time Signature Neutrophils % 85.8 % [facility] Neutr Abs (ANC) 15.13 (H) 1.70 - [facility] 6.10 [facility] x10(3)/[facility] LABORATORY Lymphocytes % 7.8 % [facility] Lymphocytes Abs 1.4 0.9 - 3.2 [facility] x10(3)/[facility] LABORATORY Monocytes % 5.2 % [facility] Monocyte Abs 0.9 0.3 - 0.9 [facility] x10(3)/[facility] LABORATORY Eosinophils % 0.0 % [facility] Eosinophils Abs 0.0 0.0 - 0.4 [facility] x10(3)/[facility] LABORATORY Basophils % 0.1 % [facility] Basophils Abs 0.0 0.0 - 0.1 [facility] x10(3)/[facility] LABORATORY Immature Gran % 1.10 % [facility] Comment: Immature granulocytes(IG's)percentage an d absolute count will include metamyelocytes, myelocytes, and promyelo cytes. Blood smears from CBCs yielding IG's will be scanned manually for concor dance. If this scan disagrees with the automated IG or if promyelocytes are not ed, a manual differential will be performed. Lula Gran Abs 0.19 (H) 0.00 - 0.04 x10(3)/[facility] LABORATORY Specimen Anatomical Collection Method Collection Time Receive d Time (Source) Location / / Volume Laterality Blood specimen 04/12/2020 1:44 AM 020 1:49 (specimen) EDT AM EDT Resulting Agency Comment Spec In Lab Kobe Reynoso MD HEMATOLOGY ORDERABLES Performing Organization Address City/State/[place] [address] (ABNORMAL) Hemogram (04/12/2020 1:44 AM EDT) Analysis Performed At Patho logist Time Signature WBC 17.6 (H) 4.0 - 9.5 [facility] x10(3)/[facility] LABORATORY RBC 4.23 (L) 4.58 - [facility] 5.54 [facility] x10(6)/[facility] LABORATORY Hemoglobin 12.6 (L) 13.7 - [facility] 16.[facility] gm/dL [facility]ORATORY Hematocrit 37.0 (L) 40.5 - [facility] 48.5 % [facility] LABORATORY MCV 87.5 82.9 - [facility] 93.1 [facility] LABORATORY MCH 29.8 27.5 - [facility] 32.1 pg [facility] LABORATORY MCHC 34.1 32.0 - [facility] 35.7 gm/dL [facility]OR[facility] Platelets 207 145 - 357 [facility] x10(3)/[facility] LABORATORY RDWSD 39.2 36.0 - [facility] 45.0 [facility] LABORATORY RDWCV 12.2 11.4 - [facility] 13.8 % [facility] LABORATORY MPV 10.4 7.6 - 12.9 [facility] LABORATORY nRBC % Auto 0.0 % [facility] nRBC Abs Auto 0.000 0.000 - [facility] 0.000 [facility] x10(3)/[facility] LABORATORY Specimen Anatomical Collection Method Collection Time Receive d Time (Source) Location / / Volume Laterality Blood specimen 04/12/2020 1:44 AM 020 1:49 (specimen) EDT AM EDT Resulting Agency Comment Spec In Lab Kobe Reynoso MD HEMATOLOGY ORDERABLES Performing Organization Address City/State/[place] [address] Basic Metabolic Panel (non-fasting) (04/12/2020 1:44 AM EDT) P athologist Signature Glucose Lvl 150 65 - 199 [facility] mg/dL [facility] LABORATORY Comment: Diabetes: >=200 mg/dL plus symp toms BUN 14 10 - 20 mg/dL [facility] LABORATORY Creatinine 0.85 0.80 - 1.50 mg/dL [facility] LABORATORY Sodium 140 135 - 145 mmol/L [facility] LABORATORY Potassium 4.1 3.5 - 5.0 mmol/L [facility] LABORATORY Comment: Please note: ??Patients with WBC >100,00 0 may have falsely elevated Potassium levels. ??For accurate Potassium quantif ication in these patients send serum separator tube (gold top) for subsequent determinations. ??Contact the Clinical Chemistry Laboratory if there are any qu estions. Chloride 105 98 - 107 mmol/L [facility]ORAT[facility] CO2 22 22 - 31 mmol/L [facility] Anion Gap 13 5 - 15 mmol/L [facility] LABORATORY Calcium 9.3 8.5 - 10.5 mg/dL [facility] LABOR[facility] Estimated GFR 111 >=60 mL/min/1.73 m?? [facility] LABOR[facility] Comment: The eGFR was calculated using the CKD-EP I equation. As with all creatinine based estimates of kidney function, eGFR values calculated with the CKD-EPI equation are not accurate in patients wi th acute kidney failure, extremes of body mass or the acutely ill. [email or web address]/[facility]SAnkf eGFR 128 >=60 mL/min/1.73 m?? [facility]OR[facility] Comment: The eGFR was calculated using the CKD-EP I equation. As with all creatinine based estimates of kidney function, eGFR values calculated with the CKD-EPI equation are not accurate in patients wi th acute kidney failure, extremes of body mass or the acutely ill. http://[employer]/[facility]SAnkf Specimen Anatomical Collection Method Collection Time Receive d Time (Source) Location / / Volume Laterality Blood specimen 04/12/2020 1:44 AM 020 1:49 (specimen) EDT AM EDT Resulting Agency Comment Spec In Lab Tiki Jacobs MD CHEMISTRY ORDERABLES Performing Organization Address City/[facility]/[place]IP [place] [address] POCT Glucose (04/11/2020 2:02 PM EDT) P athologist Signature POC Glucose 105 65 - 199 [facility] mg/dL [facility] LABORATORY Comment: Supplemental ranges: <140 mg/dL before meals <180 mg/dL all other times of the day Specimen Anatomical Collection Method Collection Time Receive d Time (Source) Location / / Volume Laterality Blood specimen 04/11/2020 2:02 PM 020 2:02 (specimen) EDT PM EDT Tiki Jacobs MD POINT OF CARE TEST ORDERABLE S Performing Organization Address City/State/[place] [address] Specimen to Pathology (04/11/2020 12:26 PM EDT) Specimen Anatomical Collection Method Collection Time Receive d Time (Source) Location / / Volume Laterality AP Specimen 04/11/2020 12:26 04/11/2020 PM EDT 12:26 PM EDT Narrative [facility] - 04/11/2020 12:26 PM EDT Specimen requisition ordered. ??Separate Pathology report to follow Tiki Jacobs MD PATHOLOGY/CYTOLOGY ORDERABLE S Performing Organization Address City/State/ZIP Code Phon [place] [address] [facility] [address] Surgical Pathology Report (04/11/2020 11:43 AM EDT) Component Value Ref Test Analysis Performed At [facility] gist Range Method Time Signature Surgical [id number] ? Location: [facility]; [facility]; [facility] Report The signing pathologist has (i) examined the relevant preparation(s) for the [facility]IAL specimen(s) and (ii) rendered or confirmed the diagnosis(es) . HOSPITAL LABORATORY . ?Surgic al Pathology DIAGNOSIS SCHWANNOMA, WHO GRADE 1 Electronically signed by: ??Jhony Su MD Verified: ??04/17/2020 ?Pathologist Performed at: ??-[facility] Dept. of Pathology, [place], [place] SYNOPTIC none DISCUSSION Hematoxylin and eosin-staine [...] x 0.6 x 0.3 cm. Tissue Description: Crowley-yellow soft tissue. Sections/Processing: Touch prep(s) are prepared. [...] 04/11/20 at 12:05 PM. Electronically signed by: ??Georges MORROW, Jhony Wiley Verified: ??04/11/2020 ?Pathologist Performed at: ??-[facility] Dept. of Pathology, [place], [place] This intraoperative consultation should be interpreted as a preliminary diagnosis pending review of the entire specimen and sp ecial studies, if any. Specimen (Source) Anatomical Collection Method Collection Time Re ceived Time Location / / Volume Laterality 04/11/2020 11:43 AM EDT Tiki Jacobs MD PATHOLOGY/CYTOLOGY ORDERABLE S Performing Organization Address City/[facility]/ZIP Code Phon e Number [address] Specimen to Pathology (04/11/2020 11:43 AM EDT) Specimen Anatomical Collection Method Collection Time Receive d Time (Source) Location / / Volume Laterality AP Specimen 04/11/2020 11:43 04/11/2020 AM EDT 11:43 AM EDT Narrative [facility] - 04/11/2020 11:43 AM EDT Specimen requisition ordered. ??Separate Pathology report to follow Tiki Jacobs MD PATHOLOGY/CYTOLOGY ORDERABLE S Performing Organization Address City/[facility]/ZIP [facility] [place] [address] (ABNORMAL) BLOOD GAS 2 ARTERIAL (04/11/2020 10:27 AM EDT) Analysis Performed At Patho logist Time Signature pH Art 7.45 7.35 - [facility] 7.45 [facility] LABORATORY pCO2 Art 33 (L) 35 - 45 [facility] pO2 Art 306 (H) 85 - 104 [facility] LABORATORY HCO3 Art 22.8 20.0 - [facility] 26.0 [facility] mmol/[facility] LABORATORY BE Art -1.6 -3.0 - 3.0 [facility] mmol/L [facility] LABORATORY Hgb Blood Gas 13.6 (L) 13.7 - [facility] 16.5 gm/dL [facility] O2HB Art 98.9 (H) 94.0 - [facility] 97.0 % [facility] LABORATORY COHB Art 0.4 % [facility]ORATORY Comment: Nonsmokers: 0.5-1.5% COHB Smokers: Variable, but usually less than 10% Toxic: 20-30% COHB Lethal: Greater than 60% COHB METHB Art 0.3 <=1.5 % [facility] LABORATORY Na Whole Blood 139 135 - 145 mmol/L [facility] K Whole Blood 4.1 3.5 - 5.0 mmol/L [facility] Comment: Please note: Patients with WBC >100,000 may have falsely elevated Potassium levels. Contact the Clinical Chemistry L aboratory if there are any questions. ICa Whole Blood 1.20 1.15 - 1.33 mmol/L [facility]OR[facility] Comment: Note: ??Total bilirubin higher than 20 m g/dL may lead to falsely low ionized calcium. CL Whole Blood 111 (H) 98 - 107 mmol/L [facility] LABORATORY Gluc Whole Bld 108 65 - 199 mg/dL [facility] LABORATORY Comment: Diabetes: >=200 mg/dL plus symp toms. Lactate WB 1.4 0.5 - 2.2 mmol/L [facility] LABORATORY FIO2 Art 56 % [facility]OR[facility] Flow Art 1.0 LPM [facility] LABORATORY PF Ratio Art 546 [facility] LAB[facility] Temp Art 35.3 Celsius [facility] LABORATORY Specimen Anatomical Collection Method Collection Time Receive d Time (Source) Location / / Volume Laterality Blood specimen 04/11/2020 10:27 0 (specimen) AM EDT 10:27 AM EDT Tiki Jacobs MD CHEMISTRY ORDERABLES Performing Organization Address City/State/[place] [address] (ABNORMAL) BLOOD GAS 2 ARTERIAL (04/11/2020 8:38 AM EDT) P athologist Signature pH Art 7.44 7.35 - 7.45 [facility] LABORATORY pCO2 Art 32 (L) 35 - 45 [facility] LABORATORY pO2 Art Not Perf 85 - 104 [facility] LABORATORY Comment: instrument error HCO3 Art 21.8 20.0 - 26.0 mmol/L [facility] LABORATORY BE Art -2.6 -3.0 - 3.0 mmol/L [facility] LABORATORY Hgb Blood Gas 13.9 13.7 - 16.5 gm/dL [facility] LABORATORY O2HB Art 99.2 (H) 94.0 - 97.0 % [facility] LABORATORY COHB Art 0.3 % [facility] LABORATORY Comment: Nonsmokers: 0.5-1.5% COHB Smokers: Variable, but usually less than 10% Toxic: 20-30% COHB Lethal: Greater than 60% COHB METHB Art 0.3 <=1.5 % [facility] LABORATORY Na Whole Blood 136 135 - 145 mmol/L [facility] K Whole Blood 4.2 3.5 - 5.0 mmol/L [facility] Comment: Please note: Patients with WBC >100,000 may have falsely elevated Potassium levels. Contact the Clinical Chemistry L aboratory if there are any questions. ICa Whole Blood 1.18 1.15 - 1.33 mmol/L [facility] Comment: Note: ??Total bilirubin higher than 20 m g/dL may lead to falsely low ionized calcium. CL Whole Blood 108 (H) 98 - 107 mmol/L [facility]OR[facility] Gluc Whole Bld 93 65 - 199 mg/dL [facility] LABOR[facility] Comment: Diabetes: >=200 mg/dL plus symp toms. Lactate WB 1.5 0.5 - 2.2 mmol/L [facility] LABORATORY FIO2 Art 95 % [facility] Flow Art 1.0 LPM [facility] Temp Art 35.7 Celsius [facility] LABORATORY Specimen Anatomical Collection Method Collection Time Receive d Time (Source) Location / / Volume Laterality Blood specimen 04/11/2020 8:38 AM 020 8:38 (specimen) EDT AM EDT Tiki Jacobs MD CHEMISTRY ORDERABLES Performing Organization Address City/State/[place] [address] documented in this encounter Visit Diagnoses Diagnosis 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 documented in this encounter Admitting Diagnoses Diagnosis 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 documented in this encounter Administered Medications Inactive Administered Medications - up to 3 most recent administrations Medication Order MAR Action Action Date Dose Rate Site acetaminophen (Tylenol) tablet 650 Given 04/13/2020 3:10 PM EDT 650 mg mg 650 mg, Oral, EVERY 4 HOURS PRN, Starting on Wed04/12/20 at 1733, Until 04/13/20 at 2020, Pain, Fever, Headaches, Maximum dose of acetaminophen is 4000 mg from all sources in 24 hours., Routine Given 04/13/2020 10:53 AM EDT 650 mg Given 04/13/2020 6:32 AM EDT 650 mg BUpivacaine-EPINEPHrine 0.25 %-1:200,000 Given 04/11/2020 9:28 A M EDT 10 mLs injection ONCE PRN, Starting on Jessica 04/11/20 at 0928, Until Jessica 04/11/20 at 1622, Intra-Operative (Intra-Procedure), Routine carboxymethylcellulose (REFRESH PLUS) 0.5 % Given 04/13/2020 4:18 PM EDT 1 drop ophthalmic drops 1 drop 1 drop, Left Eye, 4 TIMES DAILY, First dose on Jessica 04/11/20 at 2100, Until Discontinued, Routine Given 04/13/2020 12:10 PM EDT 1 drop Given 04/13/2020 8:47 AM EDT 1 drop eplerenone (Inspra) tablet 25 mg Given 04/13/2020 8:48 AM EDT 25 mg 25 mg, Oral, 2 TIMES DAILY, First dose on Wed04/11/20 at 2100, Until Discontinued, Routine Given 04/12/2020 8:46 PM EDT 25 mg Given 04/12/2020 8:26 AM EDT 25 mg gelatin compressed (GELFOAM) sponge Given 04/11/2020 9:28 AM EDT 1 each ONCE PRN, Starting on Wed04/11/20 at 0928, Until Wed04/11/20 at 1622, Intra-Operative (Intra-Procedure) HYDROmorphone (Dilaudid) tablet 2 mg Given 04/13/2020 5:22 PM EDT 2 mg 2 mg, Oral, EVERY 4 HOURS PRN, Starting on Wed04/12/20 at 0114, Until 04/13/20 at 2020, Pain, May give an additional 2 mg once if pain not relieved in 30-60 minutes., Routine Given 04/13/2020 1:44 PM EDT 2 mg Given 04/13/2020 8:51 AM EDT 2 mg melatonin tablet 6 mg Given 04/12/2020 9:33 [...] Intravenous, EVERY 8 HOURS PRN, Starting on Wed04/11/20 at 1400, [...] minutes, give an additional 4mg, Rou sharee pantoprazole (PROTONIX) injection 40 mg 40 mg, [...] EDT 40 mg scopolamine Patch Applied 04/11/2020 8:06 PM 1 [...] dose o n Wed04/12/20 at 0745, Until Discontinued, Verify scopolamine 1 mg patch. senna-docusate (Pericolace) 8.6-50 mg per Given 2019 8:51 AM EDT 2 tablets tablet 2 tablet 2 tablet, Oral, 2 TIMES DAILY, First dose on Jessica 04/11/20 at 2100, Until Discontinued, Routine thrombin (Bovine) (THROMBINAR) kit Given 04/11/2020 9:28 AM EDT 20,000 Units ONCE PRN, Starting on Jessica 04/11/20 at 0928, Until Jessica 04/11/20 at 1622, Intra-Operative (Intra-Procedure) white petrolatum-mineral oil ophthalmic ointment 1 each, [...] HOURS SCHEDULED, 3 doses, First dose on Jessica 04/11/20 at 1830, Last dose on Wed04/12/20 at 1100, Maximum dose of acetaminophen is 4000 mg from all sources in 24 hours., Routine acetaminophen (OFIRMEV) injection 1,000 mg (COMPLETED) 002 (Given - Provider: Emeka Copeland RN)0542 (Given - Provider: Obi Menendez RN)1124 (Given - Provider: Meggan Minaya, MICHAEL)1706 (Given - Provider: Meggan Minaya, MICHAEL) 1,000 mg, Intravenous, at 400 mL/hr, URMILA RY 6 HOURS SCHEDULED, 4 doses, First dose (after last modification) on Wed04/12/20 at 0000, Last dose on Wed04/12/20 at 1800, Maximum dose of acetaminophen is 4000 mg from all sources in 24 hours., Routine acetaminophen (Tylenol) tablet 1,000 mg (COMPLETED) 03 05 (Given - Provider: Nuris Urban, MICHAEL) 1,000 mg, Oral, ONCE, 1 dose, Jessica 0 at 0645, Maximum dose of acetaminophen is 4000 mg from all sources in 24 hours., Day of Surgery (Day of Procedure), Routine carboxymethylcellulose (REFRESH PLUS) 0.5 % ophthalmic drops 1 drop 2151 (Given - Provider: Emeka Copeland, MICHAEL) 0900 (Given - Provider: Meggan Minaya, RN)1300 (Not Given - Provider: Meggan Minaya RN - Reason: Patient/family refused)1700 (Not Given - Provider: Meggan Minaya RN - Reason: Patient/family refused) 0847 (Given - Provider: Carol Mensah, RN)1210 (Given - Provider: Carol Mensah, RN)1618 (Given - Provider: Carol Mensah RN) 1 drop, Left Eye, 4 TIMES DAILY, First d ose on Jessica 04/11/20 at 2100, Until Discontinued, Routine 2099 (Not Given - Provider: Jelly Crenshaw RN [...] Nick RN) 0024 (Given - Provider: Emeka Copeland, MICHAEL) 4 mg, Intravenous, EVERY 6 HOURS SCHEDUL ED, 4 doses, First dose on Jessica 04/11/20 at 1830, Last dose on Wed04/12/20 at 1200 dexamethasone (Decadron) tablet 4 mg (CANCELED) 1124 (Given - Provider: Meggan Minaya RN)1706 (Given - Provider: Meggan Minaya RN) 4 mg, Oral, EVERY 6 HOURS SCHEDULED, 8 d oses, First dose on Wed04/12/20 at 1200, Last dose on Wed04/14/20 at 0600, Routine diphenhydrAMINE (BENADRYL) injection 10 mg (COMPLETED) 2057 (Given - Provider: Emeka Copeland, MICHAEL) 10 mg, Intravenous, ONCE, 1 dose, Jessica 04/11/20 at 2045, Routine eplerenone (Inspra) tablet 25 mg 2099 (Hold - Provider : Emeka Copeland RN - Reason: Per MD Order - Comment: Per [facility] ED) 825 (Given - Provider: Meggan Minaya RN)2045 (Given - Provider: Jelly Crenshaw RN) 0848 (Given - Provider: Carol Mensah, RN) 25 mg, Oral, 2 TIMES DAILY, First dose o n Jessica 04/11/20 at 2100, Until Discontinued, Routine HYDROmorphone (DILAUDID) injection 0.2 mg (COMPLETED) 2007 (Given - Provider: Jelly Crenshaw RN) 0.2 mg, Intravenous, ONCE, 1 dose, Jessica at 2045, May give an additional 0.2 mg in 30 minutes once if pain not relieved., Routine HYDROmorphone (DILAUDID) injection 0.5 mg (COMPLETED) 1457 (Given - Provider: Elsa Nick RN) 0.5 mg, Intravenous, ONCE, 1 dose, Jessica 04/11/20 at 1545, STAT LORazepam (ATIVAN) injection 1 mg (COMPLETED) 149 (Given - Provider: Emeka Copeland, MICHAEL) 1 mg, Intravenous, ONCE, 1 dose, Wed04/12/20 at 0245, Routine melatonin tablet 6 mg 2132 (Given - Provider: Me mark Crenshaw RN) 6 mg, Oral, NIGHTLY, First dose on Wed at 2200, Until Discontinued, Routine pantoprazole (PROTONIX) injection 40 mg(Linked Group 1 ) 1500 (Not Given - Provider: Elsa Nick RN - Reason: See comment) 08 (See Alternative - Provider: Meggan Minaya RN) 0848 (See Alternative - Provider: Carol eMnsah RN) 40 mg, Intravenous, DAILY, First dose [...] (COMPLETED) 724 (Patch Applied - Provider: Nuris Urban, RN) 1 patch, Transdermal, ONCE, 1 dose, Wed04/11/20 at 0745, Day of Surgery (Day of Procedure), Routine scopolamine (TRANSDERM-SCOP) 1 mg over 3 days patch 1 patch(Linked Group 2) 2005 (Patch Applied - Provider: Jelly Crenshaw, RN) 1 patch, Transdermal, EVERY 72 HOURS, Fi rst dose on Wed04/11/20 at 2045, Until Discontinued, Routine scopolamine (TRANSDERM-SCOP) 1 mg patch Patch Removal(Linked Jessica up 2) Transdermal, EVERY 72 HOURS, First dose on Wed04/14/20 at 1945, Until Discontinued, Remove scopolamine 1 mg patch scopolamine (TRANSDERM-SCOP) 1 mg patch Patch Verification(L inked Group 2) 744 (Patch (dose and location) verified - Provider: Meggan Minaya RN)2099 (Patch (dose and location) verified - Provider: Jelly Crenshaw RN - Comment: left ear) 09 (Patch (dose and location) verified - Provider: Carol Mensah, MICHAEL) Transdermal, 2 TIMES DAILY, First dose o n Wed04/12/20 at 0745, Until Discontinued, Verify scopolamine 1 mg patch. senna-docusate (Pericolace) 8.6-50 mg per tablet 2 tab let 2099 (Hold - Provider: Emeka Copeland RN - Reason: See comment - Comment: N/V) 0900 (Not Given - Provider: Meggan Minaya RN - Reason: Patient/family refused)2099 (Not Given - Provider: Jelly Crenshaw RN - Reason: Patient/family refused) 0851 (Given - Provider: Carol Mensah, RN) 2 tablet, Oral, 2 TIMES DAILY, First dos e on Wed04/11/20 at 2100, Until Discontinued, Routine sodium chloride 0.9% 1,000 mL IV bolus (COMPLETED) 201 1 (New Bag - Provider: Jelly Crenshaw RN) Intravenous, ONCE, 1 dose, Jessica 04/11/20 at 2045 sodium chloride 0.9% 500 mL IV bolus (COMPLETED) 1631 (New Bag - Provider: Elsa Nick, MICHAEL) Intravenous, ONCE, 1 dose, Jessica 04/11/20 at [...] Razo ms, RN)0632 (Given - Provider: Jelly Crenshaw, RN)1053 (Given - Provider: Carol Mensah, RN)1510 (Given - Provider: Carol Mensah, RN) 650 mg, Oral, EVERY 4 HOURS [...] EVERY 1 HOUR PRN, St arting Jessica 04/11/20 at 1400, Until 04/13/20 at [...] mg, Intravenous, EVERY 4 HOURS PRN, Starting Jessica 04/11/20 at 2243, Until Wed04/12/20 at 0116, Pain, Routine HYDROmorphone (DILAUDID) injection 0.2 mg (COMPLETED) 0132 (Given - Provider: Emeka Copeland, MICHAEL)0540 (Given - Provider: Obi Menendez RN)0821 (Given - Provider: Meggan Minaya RN) 0.2 mg, Intravenous, EVERY 2 HOURS PRN, 3 doses, Starting Wed04/12/20 at 0130, Until Discontinued, Pain, Routine HYDROmorphone (Dilaudid) tablet 2 mg 112 4 (Given - Provider: Meggan Minaya, MICHAEL)1537 (Given - Provider: Meggan Minaya RN)1848 (Not [...] pain not relieved in 30-60 minutes., Routine 184 (Not Given - Provider: Meggan Minaya RN - Reason: See comment - Comment: too soon)1936 (Given - Provider: Jelly Crenshaw RN)233 (Given - Provider: Jelly Crenshaw, RN) labetalol (NORMODYNE,TRANDATE) injection 10-20 mg 10-20 [...] (1 %) injection 50 mg (COMPLE JEM) 1654 (Given - Provider: Meggan Minaya RN) 50 mg (5 mL), Subcutaneous, ONCE PRN, 1 dose, Starting Wed04/12/20 at 1128, Until Discontinued, for lumbar drain removal, Routine metoclopramide (REGLAN) injection 10 mg 0134 (Given - Provider: Emeka Copeland RN)1043 (Given - Provider: Elsa Nick, MICHAEL) 10 mg, Intravenous, EVERY 6 HOURS PRN, S tarting Jessica 04/11/20 at 1400, Until 04/13/20 at 2020, Nausea, If multiple antiemetics are ordered, use ondansetron first, prochlorperazine second, and metaclopramide third. ondansetron (ZOFRAN) injection 4-8 mg(Linked Group 3) 1413 (Given - Provider: Elsa Nick RN)1451 (Given - Provider: Elsa Nick, MICHAEL)1937 (Given - Provider: Emeka Copeland, RN) 0954 (Given - Provider: Meggan Minaya, RN) 172 (Given - Provider: Carol Mensah, RN) 4-8 [...] 141 3 (See Alternative - Provider: Elsa Nick RN)1451 (See Alternative - Provider: Elsa Nick RN)1937 (See Alternative - Provider: Emeka Copeland, MICHAEL) 0954 (See Alternative - Provider: Meggan Minaya, MICHAEL) 172 (See Alternative - Provider: Carol Mensah, RN) 4-8 mg, Oral, EVERY 8 HOURS PRN, Startin g Jessica 04/11/20 at 1400, Until 04/13/20 at 2020, Nausea, Vomiting, If multiple antiemetics are ordered, [...] Jessica 04/11 at 1400, Until 04/13/20 at 2020, Constipation, Administer if no bowel movement within 48 hours to achieve: (1) One bowel movement at least every 48 hours, A ND (2) without straining. If multiple MI N bowel medications ordered, start with polyethylene glycol, then lactulose, then oral bisacodyl, then bisacodyl suppository, then magnesium citrate, then tap clementine er enema. Multiple medications may be gi helene concomitantly for constipation., Routine thrombin (Bovine) (THROMBINAR) kit (CANCELED) 0928 (Gi heleen - Provider: Tiki Jacobs MD - Comment: Used with gel foam) ONCE PRN, Starting Wed04/11/20 at 0928, Until Wed04/11/20 at 1622, Intra- Operative (Intra-Procedure) No Frequency Medication Order 04/11/2020 04/12/2020 04/13/2020 HYDROmorphone (DILAUDID) 2 mg/mL injection (COMPLETED) 1429 (Given - Provider: Elsa Nick, RN) 1 dose, Starting Wed04/11/20 at 1421, [...] First dose on 04/14/20 at 1945, Until Discontinued
Remove scopolamine 1 [...] 4mg
documented in this encounter Care Teams Job Press Operator Relationship Specialty Start Date End Date Syed Leong MD PCP - General Family Medicine 02/28/20 08/04/20 [address] [facility] [address] [place] [address] documented as of this encounter
--- OUTSIDE RECORDS SUMMARY | 2022-05-22 15:17 | XMS_ITS | Encounter Summary ---
:1980 Author Organization [facility] [place] [address] Care Team Providers Name Role Phone Syed Leong MD Primary Care Provider Reason for Visit Reason Onset Date Comments Appointment 06/19/2020 Encounter Details Date Type Department Care Team Description 06/19/2020 Telephone Neurology at [facility] Sanaz Rivas MD Appointment [facility] [place] [address] [place] [address] [phone] (Wo rk) Social History Tobacco Use Types Packs/Day Years Used Date Former Smoker Smokeless Tobacco: Never Used Comments: quit a few years ago Alcohol Use Standard Drinks/Week Comments Not Currently 0 (1 standard drink = 0.6 oz pure alcoho l) Sex Assigned at Date Recorded Not on file documented as of this encounter Miscellaneous Notes Telephone Encounter - Rohan Moss - 07/02/2020 10:16 AM EDT calling back, states she is unsure Pt needs to be followed by Neurology any longer, Will touch base with neurosurg and call back if needed. Telephone Encounter - Sammy Kenny - 06/26/2020 3:56 PM EDT Letter Sent Telephone Encounter - Sammy Kenny - 06/19/2020 1:47 PM EDT Schedule next available FUV w/ Dr. 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
--- OUTSIDE RECORDS SUMMARY | 2022-05-22 15:17 | XMS_ITS | Encounter Summary ---
:1980 Author Organization [facility] [place] [address] Care Team Providers Name Role Phone Syed Leong MD Primary Care Provider Encounter Details Date Type Department Care Team Description 04/25/2020 Telephone Otolaryngology at [facility] [place] [address] Social History Tobacco Use Types Packs/Day Years Used Date Former Smoker Smokeless Tobacco: Never Used Comments: quit a few years ago Alcohol Use Standard Drinks/Week Comments Not Currently 0 (1 standard drink = 0.6 oz pure alcoho l) Sex Assigned at Date Recorded Not on file documented as of this encounter Miscellaneous Notes Telephone Encounter - Yola Mahajan RN - 04/25/2020 10:07 AM EDT called back by this RN after discussion and recommendations given with Dr. Welsh. 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 and patient aware of this possibility and feel comfortable waiting for next appointment on 05/[address] Welsh. Applying eye gtts and gel prn; visiting retinal specialist 04/26. voices understanding and acceptance of this advice and will call back if any further questions or concerns. documented in this encounter Plan of Treatment Not on filedocumented as of this encounter Visit Diagnoses Not on filedocumented in this encounter Care Teams Garment Fitter Relationship Specialty Start Date End Date Syed Leong MD PCP - General Family Medicine 02/28/20 08/04/20 [address] [facility] [address] [place] [address] documented as of this encounter
--- OUTSIDE RECORDS SUMMARY | 2022-05-22 15:17 | XMS_ITS | Encounter Summary ---
:1980 Author Organization [facility] [place] [address] Care Team Providers Name Role Phone Syed Leong MD Primary Care Provider Encounter Details Date Type Department Care Team Description 04/12/2020 Telephone Otolaryngology at [facility] [place] [address] Social History Tobacco Use Types Packs/Day Years Used Date Former Smoker Smokeless Tobacco: Never Used Comments: quit a few years ago Alcohol Use Standard Drinks/Week Comments Not Currently 0 (1 standard drink = 0.6 oz pure alcoho l) Sex Assigned at Date Recorded Not on file documented as of this encounter Miscellaneous Notes Telephone Encounter - Yola Mahajan RN - 04/12/2020 11:41 AM EDT [facility] [place] call returned. Mai would like to schedule follow up eye exam with Dr. Whitley 2-3 weeks after surgery. Mai is wondering when patient would be discharged. After discussion, Mai will call to schedule follow up. documented in this encounter Plan of Treatment Not on filedocumented as of this encounter Visit Diagnoses Not on filedocumented in this encounter Care Teams Paper Cup Machine Tender Relationship Specialty Start Date End Date Syed Leong MD PCP - General Family Medicine 02/28/20 08/04/20 [address] [place] [address] documented as of this encounter
--- OUTSIDE RECORDS SUMMARY | 2022-05-22 15:17 | XMS_ITS | Encounter Summary ---
:1980 Author Organization [facility] [place] [address] Care Team Providers Name Role Phone Kobe Richardson MD Primary Care Provider Reason for Visit Reason Onset Date Comments Medication Refill 04/26/2020 Encounter Details Date Type Department Care Team Description 04/26/2020 Refill Neurosurgery at [facility] Nitish Calloway PA [facility] [place] [address] NEUROSURGERY [phone] [place], [place] [address] (Wo rk) Social History Tobacco [...] on filedocumented in this encounter Care Teams Life Sciences Director Relationship Specialty Start Date End Date Kobe Richardson MD PCP - General Family Medicine 08/05/20 [facility] [place] [phone] documented as of this encounter
--- OUTSIDE RECORDS SUMMARY | 2022-05-22 15:17 | XMS_ITS | Encounter Summary ---
:1980 Author Organization [facility] [place] [address] Care Team Providers Name Role Phone Syed Leong MD Primary Care Provider Encounter Details Date Type Department Care Team Description 04/17/2020 Refill Neurosurgery at [facility] [place] [address] Social History Tobacco Use Types Packs/Day Years Used Date Former Smoker Smokeless Tobacco: Never Used Comments: quit a few years ago Alcohol Use Standard Drinks/Week Comments Not Currently 0 (1 standard drink = 0.6 oz pure alcoho l) Sex Assigned at Date Recorded Not on file documented as of this encounter Miscellaneous Notes Telephone Encounter - Delia Geronimo - 04/17/2020 9:37 AM EDT Date of Call: 04/17/2020 Person Calling: Joanie Patient: Flavio Hamm : 1980 Patient ID : [id number] y.o. male, patient of Dr. Jacobs. Reason for call: Refill of Dilaudid Subjective: Joanie calls today requesting a refill of Flavio's Dilaudid. He has been taking this medication Q4 along with Tylenol. He had not been taking steroids however, after experiencing significantpain yesterday and feeling some relief after taking a tablet he has resumed taking this medication. They have placed a call to ENT about steroid dosing. Assessment/Plan: Will send message to our provider in clinic requesting he refill Dilaudid. 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 documented in this encounter Plan of Treatment Not on filedocumented as of this encounter Visit Diagnoses Not on filedocumented in this encounter Care Teams Enterprise Records Analyst Relationship Specialty Start Date End Date Syed Leong MD PCP - General Family Medicine 02/28/20 08/04/20 [address] [place] [phone] documented as of this encounter
--- OUTSIDE RECORDS SUMMARY | 2022-05-22 15:17 | XMS_ITS | Encounter Summary ---
:1980 Author Organization [facility] [place] [address] Care Team Providers Name Role Phone Syed Leong MD Primary Care Provider Encounter Details Date Type Department Care Team Description 04/17/2020 Telephone Otolaryngology at [facility] Yola Mahajan, [place] [address] Social History Tobacco Use Types Packs/Day Years Used Date Former Smoker Smokeless Tobacco: Never Used Comments: quit a few years ago Alcohol Use Standard Drinks/Week Comments Not Currently 0 (1 standard drink = 0.6 oz pure alcoho l) Sex Assigned at Date Recorded Not on file documented as of this encounter Miscellaneous Notes Telephone Encounter - Yola Mahajan RN - 04/17/2020 1:08 PM EDT 's call received on nurse triage line. would like to now if they should continue on the 30mg prednisone? Patient initially not starting prednisone after discharge; started with bad headache yesterday and called neurosurgery for advise. also updated this RN patient's facial movement hasn't increased and, infact, he seems to be asking for the eye drops more frequently. After conversation with Dr. Welsh, instructed patient to increase prednisone dosing to 60mg daily. Follow up appointment scheduled with Dr. Welsh on 05/03. Instructed to keep ENT of further changes or concer ns. voices understanding and acceptance of this advice and will call back if any further questions or concerns. documented in this encounter Plan of Treatment Not on filedocumented as of this encounter Visit Diagnoses Not on filedocumented in this encounter Care Teams Yarn Spooler Relationship Specialty Start Date End Date Syed Leong MD PCP - General Family Medicine 02/28/20 08/04/20 [address] [facility] [address] [place] [phone] documented as of this encounter
--- OUTSIDE RECORDS SUMMARY | 2022-05-22 15:17 | XMS_ITS | Encounter Summary ---
:1980 Author Organization [facility] [place] [address] Care Team Providers Name Role Phone Syed [...] Expiration Date Visits Requ ested Visits Authorized [id number] 1 1 Encounter Details Date Type Department Care Team Description 04/11/2020 Hospital Encounter Neurodiagnostic at [facility] [place] [address] Social History Tobacco Use Types Packs/Day Years Used Date Former Smoker Smokeless Tobacco: Never Used Comments: quit a few years ago Alcohol Use Standard Drinks/Week Comments Not Currently 0 (1 standard drink = 0.6 oz pure alcoho l) Sex Assigned at Date Recorded Not on file documented as of this encounter Medications at [...] by mouth every 4 hours as needed. HYDROmorphone (Dilaudid) 2 mg Take 1 tablet 20 tablet 0 09/201904/13/2020 Tablet by mouth every 4 hours as needed for Pain. melatonin 3 mg Tablet Take 2 tablets 30 tablet 3 04/13/2020 03/19/2021 by mouth nightly. ondansetron (Zofran) 4 mg Take 1-2 20 tablet 0 04/13/2020 04/20/2020 Tablet tablets by mouth every 8 hours as needed. senna-docusate (Pericolace) Take 2 tablets 60 tablet 11 08/09/201903/19/2021 8.6-50 mg Tablet by mouth 2 times daily. HYDROmorphone (Dilaudid) 2 mg Take 1 tablet 20 tablet 0 09/201904/17/2020 Tablet by mouth every 4 hours as needed for Pain. eplerenone (Inspra) 25 mg Take 25 mg by 0 03/19/2021 Tablet mouth 2 times daily. acetaminophen (Tylenol) 325 mg Take 650 mg by 0 04/13/2020 Tablet mouth every 4 hours as needed. documented as of this encounter Procedure Notes Doug Cortes MD - 04/11/2020 12:25 PM EDT NEURODIAGNOSTIC LABORATORY [facility] INTRAOPERATIVE MONITORING REPORT Name: Flavio Hamm : 1980 Date of Surgery: 04/11/2020 Surgeon(s): Omar Jacobs MD, Christopher Welsh MD, Kobe Reynoso MD Surgical Procedure: [...] ipsilateral abductor digiti minimi muscles. CPT Codes: 98628 (EEG), 51723 (CN EMG unilateral 7 muscles), 58667 (JOSSY bilateral), 16622 (tcMEP upper extremity), 59289 (upper extremity SSEP bilateral), 77842 (IOM, 8 units), 03987 (IOM, 2 Units), Total IOM time: 3 [...] Cortes MD/PhD; Jermaine Carrasco PhD,CNIM; Kristin N[place]ES, [facility], R.EEG/EP.T. Anesthesia: TIVA using propofol and opioid [...] the patient???s baseline. Doug Cortes MD/PhD Cc: Omar Jacobs MD, Christopher Welsh MD. documented in this encounter Plan of Treatment Not on filedocumented as of this encounter Visit Diagnoses Not on filedocumented in this encounter Care Teams Brazer Resistance Relationship Specialty Start Date End Date Syed Leong MD PCP - General Family Medicine 02/28/20 08/04/[address] [facility] [address] [place] [address] documented as of this encounter
--- OUTSIDE RECORDS SUMMARY | 2022-05-22 15:18 | XMS_ITS | Encounter Summary ---
:1980 Author Organization [facility] [place] [address] Care Team Providers Name Role Phone Syed Leong MD Primary Care Provider Encounter Details Date Type Department Care Team Description 02/14/2020 TH Visit Neurology at [facility] Sanaz Rivas, Other complicated (TeleHealth) [facility] MD headache syndrome [facility] [phone] [place], [place] [id number] [phone] Social History Tobacco Use Types Packs/Day Years Used Date Former Smoker Smokeless Tobacco: Never Used Comments: quit a few years ago Sex Assigned at Date Recorded Not on file documented as of this encounter Progress Notes Sanaz Rivas MD - 02/14/2020 1:00 PM EDT Neurology Outpatient Clinic - Follow up telephone visit Patient name: Flavio Hamm Date of : 1980 PCP: None CC: neck pain, fatigue HPI: To briefly summarize, Flavio Hamm is a 39 y.o. man with left acoustic neuroma and left central serous retinopathy ([employer]) with recurrent episodes involving neck pain, dizziness, arm paresthesias/numbness, left eye pain, headaches and exhaustion. Though his acoustic neuroma and [employer] may account for some of his symptoms, [...] diet but unfortunately this has not helped. Last visit: MRI cervical spine- personally reviewed and discussed with the patient Symptoms the same- bad headaches, exhaustion, tingling in hands waking him up Changed diet- really tried with this- didn't help Doesn't want to take anything that could effect work- feels his symptoms are related to acoustic neuroma Continued conservative management Interval history: Rough time, headaches and dizziness and exhaustion To point where he actually feels disoriented Started taking tramadol which he had left over- helping - taking 3-4x/week but doesn't want to keep taking if there is a better option Though still would like to have surgery would like to consider something to alleviate symptoms in interim Previously reviewed: Past Medical & Surgical History: Hernia surgery Allergy: Allergies Allergen Reactions ??? Amoxicillin-Pot Clavulanate Angioedema ??? Bupropion ??? Naproxen Other (See Comments) Throat swelled 08/18 ??? 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 MRI cervical spine 01/19/2020 radiology IMPRESSION: 1. Mild degenerative changes with no significant spinal canal stenosis. 2. Mild foraminal stenosis bilaterally at C3-4 and on the left at C4-5. ?? Assessment / Plan: Flavio Hamm is a 39 y.o. man with left acoustic neuroma and left central serous retinopathy ([employer]) with recurrent episodes involving neck pain, dizziness, arm paresthesias/numbness, left eye pain, headaches and exhaustion. Though his acoustic neuroma and [employer] may account for some of his symptoms, healso has many migrainous features. Prior history of neck trauma may also account for some of the symptoms he is experiencing though recent MRI cervical spine was notable for only mild degenerative changes. Many of symptoms did coincide with changing diet and in addition he drinks significant quantities of caffeine for which he has tried adjusting his diet but unfortunately this has not helped. We discussed consideration for sleep study for further evaluation excessive daytime somnolence, NCS/EMG to evaluate for CTS for tingling in his hands/arms that wake him up in addition to prescription medications that may help with migraine headaches such as amitriptyline for example. At this time he would like to try the latter. Risks discussed and Rx given. Will also provide letter re this medication for his per his request. He will continue to take tramadol rarely which is helping with breakthrough headaches but we did discuss watcher automat long goods risks of this medication and overuse as well. He is hoping that surgery may alleviate his symptoms further and if so, may consider tapering Rx medications at that time. Above plan discussed with patient who is in agreement. RTC in 4-5 months or sooner as needed Sanaz Rivas MD [facility] Neurology Patient verbally consents to this telephone visit and understands that this visit may be billed, similar to a clinic office visit. I provided care to the patient today via telephone call. The total time associated with this visit was 25 minutes. documented in this encounter Plan of Treatment Not on filedocumented as of this encounter Visit Diagnoses Diagnosis Other complicated headache syndrome documented in this encounter Care Teams Natural Gas Inspector Relationship Specialty Start Date End Date Syed Leong MD PCP - General Family Medicine 02/28/20 08/04/20 [address] [place] [phone] documented as of this encounter
--- OUTSIDE RECORDS SUMMARY | 2022-05-22 15:18 | XMS_ITS | Encounter Summary ---
:1980 Author Organization [facility] [place] [address] Care Team Providers Name Role Phone Syed Leong MD Primary Care Provider Encounter Details Date Type Department Care Team Description 02/28/2020 Office Visit Audiology at [facility] Mai Rojo, Acoustic neuroma; [facility] AUD Sensorineural hearing loss (SNHL) of lef t ear with unrestricted hearing of right ear [address] [place], [place] C[place] [address] AUDIOLOGY DEPT [phone] [place], [place] [address] Social History Tobacco Use Types Packs/Day Years Used Date Former Smoker Smokeless Tobacco: Never Used Comments: quit a few years ago Sex Assigned at Date Recorded Not on file documented as of this encounter Progress Notes Mai Rojo, CARMELO - 02/28/2020 9:45 AM EDT AUDIOLOGY SECTION [place], [place] AUDITORY BRAINSTEM RESPONSE (ABR) REPORT 02/27/2020 BACKGROUND Flavio Hamm, a 39 y.o., was referred by Christopher Welsh MD as part of an evaluation of a 1.5cm left acoustic neuroma. Flavio Hamm has a moderately severe high frequency sensorineural hearingloss on the left and normal hearing on the right. TEST RESULTS Otoscopic inspection confirmed that the ears were clear of occlusive cerumen and that the tympanic membranes were grossly normal. Flavio Hamm quickly relaxed after the electrodes were attached and remained quiet and relaxed throughout the procedure. Testing was performed using the following parameters: rarefaction click stimuli presented at a rate of 13.3/second and 51.1/second at 80 dB. Waves I-V were clearly identifiable at an 80-dB stimulation level in both ears. Obtained latencies and interlatencies were as follows: Absolute and Interpeak Latencies at 13.1/second Wave I Wave III Wave V I-III III-V I-V Right Ear (ms) 1.49 3.91 6.11 2.42 2.21 4.62 Left Ear (ms) 1.62 3.99 6.11 2.37 2.12 4.50 Interaural Latency Differences at 13/1/second Wave I Wave III Wave V I-III III-V I-V ms 0.13 0.01 0 0.05 0.09 0.12 Both absolute latencies and interlatencies fall within the normal range for both ears. Latencies were also normal at the faster rate of 51.1/second (see scanned docs for details). Normal ABR study. RECOMMENDATIONS Mr. Hamm would like to proceed with surgery now instead of waiting until the Fall. Carmelo Escamilla Clinical Tick Inspector Board Certified in Audiology [facility] [place] [id number] documented in this encounter Plan of Treatment Not on filedocumented as of this encounter Visit Diagnoses Diagnosis Acoustic neuroma Benign neoplasm of cranial nerves Sensorineural hearing loss (SNHL) of lef t ear with unrestricted hearing of right ear documented in this encounter Care Teams Health Psychologist Relationship Specialty Start Date End Date Syed Leong MD PCP - General Family Medicine 02/28/20 08/04/[address] [place] [address] documented as of this encounter
--- OUTSIDE RECORDS SUMMARY | 2022-05-22 15:18 | XMS_ITS | Encounter Summary ---
:1980 Author Organization [facility] [address] Care Team Providers Name Role Phone Syed Leong MD Primary Care Provider Reason for Visit Diagnostic Test (Routine) - Closed Specialty Diagnoses / Procedures Referred By Contact Refer red To Contact Radiology Diagnoses Acoustic neuroma Christopher Welsh MD [facility] Rad Mri Procedures MRI Brain wwo Contrast (Generic) [facility] [place] [address] [place] [address] Referral ID Status Reason Start Date Expiration Date Visits V isits Requested Authorized [id number] Closed Specialty 03/20/2020 09/16/2020 1 1 Service Requested Encounter Details Date Type Department Care Team Description 03/28/2020 Hospital Encounter MRI at [facility] Christopher Welsh [facility] [place] [address] OTOLARYNGOLOGY D EPT. [place], [place] [address] (Wo rk) Social History Tobacco Use Types Packs/Day Years Used Date Former Smoker Smokeless Tobacco: Never Used Comments: quit a few years ago Sex Assigned at Date Recorded Not on file documented as of this encounter Last Filed Vital Signs Vital Sign Reading Time Taken Comments Blood Pressure 108/72 03/28/2020 4:10 PM EDT Pulse 68 03/28/2020 4:10 PM EDT Temperature 36.2 ??C (97.2 ??F) 03/28/2020 1:32 PM EDT Respiratory Rate 14 03/28/2020 4:10 PM EDT Oxygen Saturation 97% 03/28/2020 4:10 PM EDT Inhaled Oxygen Concentration - - [...] 25 mg Take 75 mg by 0 06/0 12/201911/29/2020 Tablet mouth as needed. white petrolatum-mineral oil Place 1 each 2 Tube 3 04/1304/13/2020 (Refresh P.M.) into the left eye once for 1 dose. Apply when you go to sleep at night. carboxymethylcellulose Place 1 drop 30 each 3 04/13/2020 03/19/2021 (REFRESH PLUS) 0.5 % into the left Dropperette eye 4 times daily. predniSONE (Deltasone) 10 mg Take 1 tablet 49 tablet 0 /09/201904/25/2020 Tablet by mouth daily. Take 3 tabs/day [...] 0 03/19/2021 Tablet mouth 2 times daily. amitriptyline (Elavil) 25 mg Take 3 tablets 270 tablet 3 12/201904/10/2020 TabletIndications: Other by mouth complicated headache syndrome nightly. acetaminophen (Tylenol) 325 mg Take 650 mg by 0 04/13/2020 Tablet mouth every 4 hours as needed. documented as of this encounter Progress Notes Regulo Crenshaw RN - 03/28/2020 4:14 PM EDT MRI Complete Regulo Crenshaw RN - 03/28/2020 4:02 PM EDT Pause MRI Contrast injected Regulo Crenshaw RN - 03/28/2020 3:30 PM EDT Pause MRI Change out stretcher And place in head cage Regulo Crenshaw RN - 03/25/2020 9:06 AM EDT MRI IV SEDATION NURSING DATABASE Name: FLAVIO AHMM Date of : 1980 AGE 39 y.o. Address: [address] [place] [phone] (home) Mobile: Telephone Information: Referring Provider: Christopher Welsh Allergies Allergen Reactions ??? Amoxicillin-Pot Clavulanate Angioedema ??? Bupropion ??? Naproxen Other (See Comments) Throat swelled 12/06 ??? Sulfa (Sulfonamide Antibiotics) HEIGHT: 5'8 WEIGHT: 160 lbs SCAN REQUESTED: MRI Brain wwo contrast and MRI Right shoulder wo contrast ON SCANNER #: 2 TYPE IN ANSWERS: 1. Have you ever had an MRI? Yes If yes, tell me about the experience. tried to have an mri with oral sedation, and it had the opposite effect on me. It ramped me up 2. Did you have medication for the prior MRI: Yes Do you remember what you took? Definitely took something. Can't remember what it's called, it may have started with a P, but just don't remember Have you ever taken Ativan or Valium? 3. Are you claustrophobic? yes 4. Can you ride in an elevator? yes 5. Do you snore, use CPAP, or on home O2 or have any breathing problems? no 6. Do you have pain or anxiety? no Do you take pain med's on a regular basis? No Motrin 600 mg PO PRN Tylenol 650 mg PO PRN 7. CAN YOU LAY FLAT; Yes Anesthesia is needed for pt's with ALS, involuntary tremors, uses CPAP/Sleep apnea, failed IV sedation, Cognitive impairment? Pertinent PMH: Patient Active Problem List Diagnosis Code ??? 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 PRIOR SCAN DATE/S ?SEDATION TYPE ?SUCCESSFUL MRI's at [facility] (2) Valium, IV sedation (ED) Valium - no, ED IV sedation, yes 01/19/20 MRI Cervical Spine wo contrast Fentanyl 250mcg IV, versed 4 mg IV ??pass 03/28/20 MRI Brain wwo & Right Shoulder Fentanyl 250 mcg IV Versed 4 mg IV pass ? Laboratory Results: Medications: Prior to Admission medications Medication Sig Start Date End Date Taking? Authorizing Provider amitriptyline (Elavil) 25 mg Tablet Take 3 tablets by mouth nightly. 02/15/20 Sanaz Rivas MD acetaminophen (Tylenol) 325 mg Tablet Take 650 mg by mouth every 4 hours as needed. PROVIDER, HISTORICAL ibuprofen (Advil;Motrin) 600 mg Tablet Take 600 mg by mouth every 6 hours as needed. PROVIDER, HISTORICAL omeprazole (PriLOSEC) 40 mg Capsule, Delayed Release(E.C.) Take 40 mg by mouth daily. 10/06/19 PROVIDER, HISTORICAL ( XXX ) You must have a commercial truck driver present when you check in. This patient has been informed that they require a commercial truck driver to drive them home after this procedure and that the commercial truck driver must stay inthe Building during the MRI. In the absence of a commercial truck driver, IR will not be able to sedate for your scan. Ptverbalized understanding of these instructions during the pre-procedure education via phone. Yes No Revised 02/08/18 documented in this encounter Plan of Treatment Not on filedocumented as of this encounter Procedures Procedure Name Priority Date/Time Associated Diagnosis Comme nts MRI SHOULDER RIGHT Routine 03/28/2020 6:10 PM Rotator cuff Res ults for this WO CONTRAST EDT syndrome of right procedure are in shoulder the results section. MRI BRAIN WWO Routine 03/28/2020 6:10 PM Acoustic neuroma Resu lts for this CONTRAST (GENERIC) EDT procedure are in the results section. documented in this encounter Results MRI Shoulder wo Contrast Right (Generic) (03/28/2020 6:10 PM EDT) Anatomical Region Laterality Modality Shoulder Right Magnetic Resonance Specimen (Source) Anatomical Location Collection Method / Collectio n Time Received Time / Laterality Volume Impressions 03/29/2020 11:32 AM EDT Low-grade interstitial tear of the anterior infraspinatus at its footprint. Ganglion within the superior subscapular is tendon, likely due to a prior tear. Grade 1 strain of the infraspinatus and posterior deltoid muscles. Os acromiale. Thank you for letting us participate in the care of this patient. For questions regarding this report, please contact e number below. ? Electronically signed by: Darius Gutiérrez [facility] ([phone]), at 03/29/2020 11:32 AM Narrative 03/29/2020 11:32 AM EDT EXAMINATION: MRI SHOULDER WO CONTRAST RIGHT (GENERIC) CLINICAL HISTORY: Shoulder trauma, rotator cuff tear suspe cted-x ray neg TECHNIQUE: Noncontrast MRI of the right shoulder wa s performed. COMPARISON: Shoulder radiographs 02/22/2020 FINDINGS: Rotator cuff Supraspinatus: Normal Infraspinatus: Low-grade interstitial te ar of the anterior infraspinatus at its footprint. Mild edema within the infrasp inatus muscle. Subscapularis: There is a 2.7 x 1.2 x 0. 5 cm ganglion centered at the superior subscapularis tendon. Teres minor: Normal Muscle bulk: Normal Labrum: Normal Long head of the biceps: Normal Bones: No fracture or bone marrow edema. No bony Bankart or Hill-Sachs. Glenohumeral joint: no joint effusion, n ormal cartilage bulk Acromioclavicular joint: Normal acromioc lavicular joint. There is an os acromiale without edema. Subacromial/subdeltoid bursal fluid: Non e. Mild edema within the posterior deltoid. Procedure Note Darius Gutiérrez MD - 03/29/2020Formatting o f this note might be different from the original. EXAMINATION: MRI SHOULDER WO CONTRAST RI GHT (GENERIC) CLINICAL HISTORY: Shoulder trauma, rotator cuff tear suspe cted-x ray neg TECHNIQUE: Noncontrast MRI of the right shoulder wa s performed. COMPARISON: Shoulder radiographs 02/22/2020 FINDINGS: Rotator cuff Supraspinatus: Normal Infraspinatus: Low-grade interstitial te ar of the anterior infraspinatus at its footprint. Mild edema within the infrasp inatus muscle. Subscapularis: There is a 2.7 x 1.2 x 0. 5 cm ganglion centered at the superior subscapularis tendon. Teres minor: Normal Muscle bulk: Normal Labrum: Normal Long head of the biceps: Normal Bones: No fracture or bone marrow edema. No bony Bankart or Hill-Sachs. Glenohumeral joint: no joint effusion, n ormal cartilage bulk Acromioclavicular joint: Normal acromioc lavicular joint. There is an os acromiale without edema. Subacromial/subdeltoid bursal fluid: Non e. Mild edema within the posterior deltoid. IMPRESSION Low-grade interstitial tear of the anter ior infraspinatus at its footprint. Ganglion within the superior subscapular is tendon, likely due to a prior tear. Grade 1 strain of the infraspinatus and posterior deltoid muscles. Os acromiale. Thank you for letting us participate in the care of this patient. For questions regarding this report, please contact [facility] number below. Electronically signed by: Darius Gutiérrez [facility] ([phone]), at 03/29/2020 11:32 AM Syed Leong MD IMG MRI ORDERABLES MRI Brain wwo Contrast (Generic) (03/28/2020 6:10 PM EDT) Anatomical Region Laterality Modality Head Magnetic Resonance Specimen (Source) Anatomical Location Collection Method / Collectio n Time Received Time / Laterality Volume Impressions 03/29/2020 8:45 AM EDT Unchanged left IAC mass. Thank you for letting us participate in the care of this patient. For questions regarding this report, please contact e number below. ? 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 COMPARISON: None FINDINGS: 8 x 15 mm mass projecting within the lef t IAC extending slightly into the left CP angle cistern with homogeneous enhanc ement containing cystic areas most compatible with a schwannoma unchanged f rom the prior exam. No new mass effect. No acute infarction. Ventricles are norm al. Procedure Note Makenzie Tijerina MD - 03/29/2020Formatt ing of this note might be different from the original. 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 COMPARISON: None FINDINGS: 8 x 15 mm mass projecting within the lef t IAC extending slightly into the left CP angle cistern with homogeneous enhanc ement containing cystic areas most compatible with a schwannoma unchanged f rom the prior exam. No new mass effect. No acute infarction. Ventricles are norm al. IMPRESSION Unchanged left IAC mass. Thank you for letting us participate in the care of this patient. For questions regarding this report, please contact [facility] number below. Christopher Welsh MD IMG MRI ORDERABLES documented in this encounter Visit Diagnoses Not on filedocumented in this encounter Administered Medications Inactive Administered Medications - up to 3 most recent administrations Medication Order MAR Action Action Date Dose Rate Site fentaNYL 50 mcg/mL multi-dose Given 03/28/2020 4:01 PM EDT 50 mc g injection 25-50 mcg, Intravenous, EVERY 3 MIN PRN, Starting on Jessica 03/28/20 at 1344, Until Jessica 03/28/20 at 1703, Pain, per unit protocol, - Start dose [...] direct provider supervision and verbal order., Angio/IR (Intra-Procedure), Routine Given 03/28/2020 3:42 PM EDT 50 mcg Given 03/28/2020 3:08 PM EDT 50 mcg midazolam (PF) (VERSED) multi-dose injection Given 4:01 PM EDT 0.5 mg 0.5-1 mg 0.5-1 mg, Intravenous, EVERY 3 MIN PRN, Starting on Jessica 03/28/20 at 1344, Until Jessica 03/28/20 at 1703, Sleep, - Start dose; 1 mg (Reduce [...] direct provider supervision and verbal order., Angio/IR (Intra-Procedure), Routine Given 03/28/2020 3:42 PM EDT 1 mg Given 03/28/2020 3:08 PM EDT 0.5 mg documented in this encounter Care Teams Brooch And Bracelet Maker Relationship Specialty Start Date End Date Syed Leong MD PCP - General Family Medicine 02/28/20 08/04/20 [address] [place] [address] documented as of this encounter
--- OUTSIDE RECORDS SUMMARY | 2022-05-22 15:18 | XMS_ITS | Encounter Summary ---
:1980 Author Organization [facility] [place] [address] Care Team Providers Name Role Phone Syed Leong MD Primary Care Provider Encounter Details Date Type Department Care Team Description 01/31/2020 TH Visit Neurology at [facility] Sanaz Rivas MD Frequent headaches (TeleHealth) [facility] [address] [place] [phone] Social History Tobacco Use Types Packs/Day Years Used Date Former Smoker Smokeless Tobacco: Never Used Comments: quit a few years ago Sex Assigned at Date Recorded Not on file documented as of this encounter Progress Notes Sanaz Rivas MD - 01/31/2020 2:00 PM EDT Neurology Outpatient Clinic - Initial Encounter- Follow up telephone visit Patient name: Flavio Hamm Date of : 1980 PCP: None CC: neck pain, fatigue HPI: To briefly summarize, Flavio Hamm is a 39 y.o. 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 Though his acoustic neuroma and TEST ENGINEERING INTERN may account for some of his symptoms, he also has many migrainous features. Prior history of neck trauma may also account for some of the symptoms he is experiencing though recent MRI cervical spine which was reviewed with him today notable for only mild degenerative changes. Many of symptoms did coincide with changing diet and in addition he drinks significant quantities of caffeine for which he has tried adjusting his diet but unfortunately this has not helped. Interval history: MRI cervical spine- personally reviewed and discussed with the patient as well today Symptoms the same- bad headaches, exhaustion, tingling in hands waking him up Changed diet- really tried with this- didn't help Doesn't want to take anything that could effect work- feels his symptoms are somehow related to acoustic neuroma Previously reviewed: Past Medical & Surgical History: [...] Living Situation: lives with and kids Occupation: [employer] Review of systems: Constitutional: No fevers but [...] All other systems otherwise negative Physical Exam: Unable to perform PE as this was a telephone visit Diagnostic Tests and Imaging: MRI [...] acoustic neuroma and left central serous retinopathy (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 Though his acoustic neuroma and TEST ENGINEERING INTERN may account for some of his symptoms, tristan has many migrainous features. Prior history of neck trauma may also account for some of the symptoms he is experiencing though recent MRI cervical spine which was reviewed with him today notable for only mild degenerative changes. Many [...] may help with migraine headaches such as inderal or amitriptyline for example. At this time he really does not wish to have any further testing nor does he want to take any medicine which may affect his work but will think on this. I will send him additional information regarding these options. He would like to wait to see how he feels after his acoustic neuroma is addressed and then go from there. Above plan discussed with patient who is in agreement. RTC in 4-5 months or sooner as needed Sanaz Rivas MD [facility] Neurology Patient verbally consents to this telephone visit and understands that this visit may be billed, similar to a clinic office visit. I provided care to the patient today via telephone call. The total time associated with this visit was 25 minutes. documented in this encounter Plan of Treatment Not on filedocumented as of this encounter Visit Diagnoses Diagnosis Frequent headaches documented in this encounter Care Teams Remote Encoding Center Manager Relationship Specialty Start Date End Date Syed Leong MD PCP - General Family Medicine 02/28/20 08/04/20 [address] [place] [address] documented as of this encounter
--- OUTSIDE RECORDS SUMMARY | 2022-05-22 15:18 | XMS_ITS | Encounter Summary ---
:1980 Author Organization [facility] [place] [address] Care Team Providers Name Role Phone Syed Leong MD Primary Care Provider Reason for Visit Consultation (Routine) - Closed Specialty Diagnoses / Procedures Referred By Contact Refer red To Contact Neurology Diagnoses other complicated headache syndrome, vertigo headaches, neck pain, dizziness, fatigue and more Syed Leong MD [facility] Neurology [address] [place] [address] [place] [phone] Fax: Referral ID Status Reason Start Date Expiration Date Visits Requ ested Visits Authorized [id number] Closed 12/13/2019 12/12/2020 1 1 Encounter Details Date Type Department Care Team Description 12/18/2019 TH Visit Neurology at [facility] [place] [place] Sanaz Rivas, Other complicated (TeleHealth) [facility] headache syndrome [facility] [phone] [place] [address] Social History Tobacco Use Types Packs/Day Years Used Date Former Smoker Smokeless Tobacco: Never Used Comments: quit a few years ago Sex Assigned at Date Recorded Not on file documented as of this encounter Progress Notes Sanaz Rivas MD - 12/18/2019 1:00 PM EDT Neurology Outpatient Clinic - Initial Encounter- Telephone visit Patient name: Flavio Hamm Date of : 1980 PCP: None CC: neck pain, fatigue HPI: Flavio Hamm is a 39 y.o. man who was referred to neurology in consultation at the request of for further evaluation of atypical headaches. Referral notes and ENT notes were reviewed. 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 So this was very atypical Initially treated for lyme and babesia dz and given treatment for that but sxs never went away Finally tested x 2 and both came back neg and sxs never went away Purple blob left eye- saw optho- told he had a YIELD ANALYST Hands started tingling, ear started ringing Bad headaches in back of neck - then up into left ear- into temporal and then shoots out the right Exhaustion #1and neck hurting # 2 problem Occasional headaches but not really his main issue For example- Typical episode- Eating breakfast- neck hurts and then left eye hurts and then headacheand then exhausted Numbness/tingling in hands and hands and jaw and feet In jaw- only twice- lasts for a few hours- lays down and rests- goes away Associated sxs: Constant muscle aches Last night, woke up and arm all tingling and he was telling about how it hurts and he doesn't remember this but when he woke up, neck hurt and right arm was numb Neck, Heart, blood work all reportedly okay (In looking at prior records, these included x-ray cervical spine, CBC, CMP, thyroid panel, FABIOLA) Has tried tylenol and motrin - doesn't usually help, doesn't take very often Fell off a roof last fall- 16 feet- hit ground first and then hit neck on a tree- had to take next day off, had an x-ray and was told he was okay- at least 6 months before these symptoms started Quit sugar for a while but started eating again last november, also drinks lots of coffee No other alleviating or provoking factors or associated sxs Past Medical & Surgical History: Hernia surgery Allergy: Allergies no known allergies Family History: No family history of neurological conditions, father had prostate CA and at age 30 Social History: Smoking: no- quit 2-3 yrs ago EtOH: no- quit 2-3 yrs ago IVDA: no Living Situation: lives with and kids Occupation: [employer] Review of systems: Constitutional: No fevers but [...] notable for left acoustic neuroma, otherwise normal. Assessment / Plan: Flavio Hamm is a 39 y.o. 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 Though his acoustic neuroma and YIELD ANALYST may account for some of his symptoms, healso has many migrainous features. Prior history of neck trauma may also account for some of the symptoms he is experiencing though x-ray of c-spine was okay per report. Many of symptoms did coincide with changing diet and in addition he drinks significant quantities of caffeine. We discussed these possible etiologies, contributing factors and consideration for additional evaluation and therapies. As his symptoms started with changing his diet he rather try going back to eating less sugar as he had done previously to see if this may help which is reasonable. I recommended PT as well for cervicalgia but he does not have time for this right now and may try some conservative therapies and exercises at home. I also encouraged him to reduce caffeine intake though this may exacerbate his symptoms inthe short run, it will likely be of benefit in the long run. Lastly, as he does not wish to try prescription medications at this time, we discussed other conservative ways of managing migraine headaches in particular and he may try magnesium 400mg qhs. If his neck pain and arm paresthesias do not improve, I would consider MRI of his cervical spine to be coordinated with the repeat MRI of his brain (as he is very claustrophobic and requires sedation for this) but if his symptoms improve over the next 2 months, this may not be necessary. If his exhaustion and or arm paresthesias persist could also consider expanding labs, sleep study and NCS/EMG in the future to evaluate for other causes of exhaustion in addition to sleep apnea, radiculopathy/CTS respectively. Above plan discussed with patient who is in agreement. RTC in 1-2 months Sanaz Rivas MD [facility] [place] Neurology Patient verbally consents to this telephone visit and understands that this visit may be billed, similar to a clinic office visit. I provided care to the patient today via telephone call, 36 of this 45 minute telephone visit was spent in discussion with patient on above. documented in this encounter Plan of Treatment Not on filedocumented as of this encounter Visit Diagnoses Diagnosis Other complicated headache syndrome documented in this encounter Care Teams Orthopaedic General Relationship Specialty Start Date End Date Syed Leong MD PCP - General Family Medicine 02/28/20 08/04/20 [address] [place] [id number] documented as of this encounter
--- OUTSIDE RECORDS SUMMARY | 2022-05-22 15:18 | XMS_ITS | Encounter Summary ---
:1980 Author Organization [facility] Address [facility] [address] [place] [address] Care Team Providers Name Role Phone None Primary Care Provider Unavailable Reason for Referral Consultation (Routine) - Closed Specialty Diagnoses / Procedures Referred By Contact Refer red To Contact Ophthalmology Diagnoses Other complicated headache syndrome Acoustic neuroma Sanaz Rivas MD Jordan, Kelsey L, [place] [facility] [place] [address] [place] [phone] Fax: Referral ID Status Reason Start Date Expiration Date Visits V isits Requested Authorized [id number] Closed Consult, 01/10/2020 01/09/2021 1 1 Test & Treat Encounter Details Date Type Department Care Team Description 01/10/2020 Orders Only Neurology at [facility] Sanaz Rivas MD Other complicated headache syndrome; [facility] [place] [address] [place] [address] [phone] Social History Tobacco Use Types Packs/Day Years Used Date Former Smoker Smokeless Tobacco: Never Used Comments: quit a few years ago Sex Assigned at Date Recorded Not on file documented as of this encounter Plan of Treatment Scheduled Referrals Name Type Priority Associated Order Schedule Diagnoses Referral to Outpatient Referral Routine Other complicated Ord ered: Ophthalmology headache syndrom e 01/10/2020 Acoustic neuroma documented as of this encounter Visit Diagnoses Diagnosis Other complicated headache syndrome Acoustic neuroma Benign neoplasm of cranial nerves documented in this encounter Care Teams Measurement Psychologist Relationship Specialty Start Date End Date None PCP - General 12/15/19 02/27/20 None documented as of this encounter
--- OUTSIDE RECORDS SUMMARY | 2022-05-22 15:18 | XMS_ITS | Encounter Summary ---
:1980 Author Organization [facility] [place] [address] Care Team Providers Name Role Phone Syed Leong MD Primary Care Provider Encounter Details Date Type Department Care Team Description 03/22/2020 Telephone Otolaryngology at [facility] [place] [address] Social History Tobacco Use Types Packs/Day Years Used Date Former Smoker Smokeless Tobacco: Never Used Comments: quit a few years ago Sex Assigned at Date Recorded Not on file documented as of this encounter Miscellaneous Notes Telephone Encounter - Ingrid Trujillo - 03/22/2020 10:42 AM EDT Jennifer, Patient is scheduled to have surgery on 04/11/2020 and the packet has been mailed to the verified address on file. Follow up appointment is as follows: Follow up in [facility]: 2 week with Deepika William, 4-6 weeks with Deepika William, 3 mo with Deepika William and MIKAEL with MRI Audio on 1 month follow up: yes COVID Testing: YES Thank you!! documented in this encounter Plan of Treatment Not on filedocumented as of this encounter Visit Diagnoses Not on filedocumented in this encounter Care Teams Winder Fixer Relationship Specialty Start Date End Date Syed Leong MD PCP - General Family Medicine 02/28/20 08/04/20 [address] [place] [address] documented as of this encounter
--- OUTSIDE RECORDS SUMMARY | 2022-05-22 15:18 | XMS_ITS | Encounter Summary ---
:1980 Author Organization [facility] [place] [address] Care Team Providers Name Role Phone None Primary Care Provider Unavailable Reason for Referral Diagnostic Test (Routine) - Closed Specialty Diagnoses / Procedures Referred By Contact Refer red To Contact Radiology Diagnoses Acoustic neuroma Rosa Welsh MD [facility] Rad Mri Procedures MRI Brain wwo Contrast (Generic) [facility] [place] [address] [place] [address] Referral ID Status Reason Start Date Expiration Date Visits V isits Requested Authorized [id number] Closed Specialty 03/20/2020 09/16/2020 1 1 Service Requested Encounter Details Date Type Department Care Team Description 12/15/2019 Office Visit Otolaryngology at Rosa Hallman Acoustic neuroma; [facility] MD Yanni Sensorineural hearing loss (SNHL) of lef t ear with unrestricted hearing of right ear; [place] [address] CENTER Paresthesias/numbness [phone] [place] [address] Social History Tobacco Use Types Packs/Day Years [...] - - Weight 72.6 kg (160 lb) 12/15/2019 10:20 AM EDT Height 172.7 cm (5' 8) 12/15/2019 10:20 AM EDT Body Mass Index 24.33 12/15/2019 10:20 AM EDT documented in this encounter Progress Notes Rosa Welsh MD - 12/15/2019 10:20 AM EDT [facility] Acoustic Neuroma / [facility] New Patient Note Subjective: Patient ID: Flavio Hamm is a 39 y.o. male. HPI: h/o unilateral tinnitus and hearing loss last year. Originally treated for Lyme dz. Also hashad imbalance / disequilibrium constant with episodes of waviness that sounds like low intensity vertigo, No N/V/. Still able ot work but difficult. Also has had visual problems in left eye. Seen by ophthalmology at [facility] with Dx of Central serous retinopathy. He occasionally has episodes of left eyejumping around. Has for years had occasional twitching of eyes with stress and continues to notice that L>R lately. Had MRI in Oct with Dx of Left IAC acoustic neuroma. 1 -2 weeks later he had an episode of paresthesia of his lower lip (bilateral), bilateral UE paresthesias, headache and increasedsize of blotch in his left eye. This prompted a repeat MRI which looks similar to the first. He also has visual halos and scintilating scotoms, but he is less certain abotu whether these are present in both eyes. No past medical history on file. O/w healthy, describes himself as high stress very active. Prior h/o tobacco and ETOH use - none for 3 yrs. FH: non-contributory. Social History Tobacco Use ??? Smoking status: Former Smoker ??? Smokeless tobacco: Never Used ??? Tobacco comment: quit a few years ago Substance Use Topics ??? Alcohol use: Not on file ??? Drug use: Not on file Review of Systems Constitutional: Positive for fatigue. HENT: Positive for hearing loss and tinnitus. Neurological: Positive for numbness and headaches. Objective: Physical Exam Constitutional: Appearance: He is well-developed. HENT: Head: Normocephalic and atraumatic. No abrasion or contusion. Hair is normal. Jaw: No trismus. Comments: Normal EAC and TM w/ excellent mobility and no middle ear disease. fistula test negative,normal landmarks AU Mouth/Throat: Mouth: Mucous membranes are not pale and not dry. Eyes: General: Right eye: No discharge. Left eye: No discharge. Extraocular Movements: Right eye: Normal extraocular motion and no nystagmus. Left eye: Normal extraocular motion and no nystagmus. Conjunctiva/sclera: Conjunctivae normal. Right eye: Right conjunctiva is not injected. No chemosis. Left eye: Left conjunctiva is not injected. No chemosis. Pupils: Pupils are equal, round, and reactive to light. Neck: Musculoskeletal: Normal range of motion and neck supple. No edema or erythema. Thyroid: No thyroid mass. Trachea: Phonation normal. No tracheal deviation. Pulmonary: Breath sounds: No stridor. Lymphadenopathy: Cervical: No cervical adenopathy. Skin: General: Skin is warm and dry. Neurological: Mental Status: He is alert and oriented to person, place, and time. Cranial Nerves: No cranial nerve deficit. Coordination: Coordination normal. Gait: Gait normal. Comments: Corneal reflexes are intact bilaterally (CNV) Sharp sensation intact aqnd symmetric bilaterally in all trigeminal braches Masseter strength is equal and symmetrical (CN V) TMJ is non tender Facial Nerve Function is strong and symmetric (CN VII)House Brackmann Grade I/) Hitselberger Test - no hypaesthesia in either EAC (CNVII) Palate is midline and voice is strong (CN IX & X) Tongue is midline (CN XII) Shoulder elevation is strong and symmetrical (XI) Ocular Exam: No spontaneous or gaze evoked nystagmus, EOMI with smooth pursuit Eyes Closed Rhomberg - stable Tandem Rhomberg - stable for 10 - 20 sec Tandem Gait - able to walk 5 ft with pivot and return with minimal or no errors Fukuda Test - stable without drift Finger to pt's nose testing (self with eyes closed) is normal Finger to nose test (pt and examiner) - normal no dysmetria or past pointing Heel to Luz - Normal bilaterally Rapid alternating movements - normal, no diadokokinesis Psychiatric: Speech: Speech normal. Behavior: Behavior normal. Thought Content: Thought content normal. Judgment: Judgment normal. The following audiological studies were reviewed by me: asymmetric SNHL with 92- 100% SDS (no change form outside study The following imaging studies were reviewed by me: ~ 1.5 cm acoustic neuroma left IAC with minimal extension outside of IAC, cystic degeneration of tumor, reviewed with Dr. Newton in Neuroradiology. Assessment and Plan: I have discussed the diagnosis of acoustic [...] literature was provided for them to review. Although the tinnitus, hearing loss, disequilibrium (and [...] would like to review the notes form [facility] Ophthalmology as well. It is interesting that many of his occular symptoms are unilateral (left eye) which would be consistent with the retinal pathology, but others such as the halos and scintillating scotomas may be episodic and bilateral (again, c/w migraines). As for management of his tumor, he [...] a non preservation approach (rertrosigmoid or translab). documented in this encounter Miscellaneous Notes Addendum Note - Rosa Welsh MD - 12/15/2019 10:20 AM EDT Addended by: ROSA WELSH on: 12/15/2019 03:41 PM Modules accepted: Orders documented in this encounter Plan of Treatment Not on filedocumented as of this encounter Results MRI Brain wwo Contrast (Generic) (03/28/2020 6:10 PM EDT) Anatomical Region Laterality Modality Head Magnetic Resonance Specimen (Source) Anatomical Location Collection Method / Collectio n Time Received Time / Laterality Volume Impressions 03/29/2020 8:45 AM EDT Unchanged left IAC mass. Thank you for letting us participate in the care of this patient. For questions regarding this report, please contact [facility] number below. ? Electronically signed by: Makenzie payne [facility] ([phone]), at 03/29/2020 8:45 AM Narrative 03/29/2020 8:45 AM EDT EXAMINATION: MRI BRAIN WWO CONTRAST (GENERIC) CLINICAL HISTORY: Brain/PLUG PASTER neoplasm, as sess treatment response follow up [...] BRAIN WWO CONTRAST (GEN RUBIN) CLINICAL HISTORY: Brain/PLUG PASTER neoplasm, as sess treatment response follow up [...] this report, please contact e number below. Rosa Welsh MD IMG MRI ORDERABLES documented in this encounter Visit Diagnoses Diagnosis Acoustic neuroma Benign neoplasm of cranial nerves Sensorineural hearing loss (SNHL) of lef t ear with unrestricted hearing of right ear Disequilibrium Dizziness and giddiness Paresthesias/numbness Disturbance of skin sensation Acoustic neuroma Benign neoplasm of cranial nerves Rotator cuff syndrome of right shoulder Disorders of bursae and tendons in shoul abhishek region, unspecified documented in this encounter Care Teams Haul Truck Driver Relationship Specialty Start Date End Date None PCP - General 12/15/19 02/27/20 None documented as of this encounter
--- OUTSIDE RECORDS SUMMARY | 2022-05-22 15:18 | XMS_ITS | Encounter Summary ---
:1980 Author Organization [facility] [place] [address] Care Team Providers Name Role Phone Unavailable Primary Care Provider Unavailable Encounter Details Date Type Department Care Team Description 11/02/2019 Ancillary Procedure Radiology Library at Dayo Leong [facility] [address] [address] [place], [place] [phone] (Wo rk) Social History Tobacco Use Types Packs/Day Years Used Date Never Assessed Sex Assigned at Date Recorded Not on file documented as of this encounter Plan of Treatment Not on filedocumented as of this encounter Procedures Procedure Name Priority Date/Time Associated Diagnosis Comme nts FILM LIBRARY Routine 11/02/2019 12:00 AM Results for this STORAGE ONLY MR EST procedure ar e in HEAD the results section. documented in this encounter Results Film Library- Storage Only MR Head (11/02/2019 12:00 AM EST) Specimen (Source) Anatomical Location Collection Method / Collectio n Time Received Time / Laterality Volume Narrative [facility] - 11/07/2019 11:33 AM EST This exam is auto-finalizing. It's purpo se is for storage only. Syed Leong MD Han FILM LIBRARY ORDERABLES Performing Organization Address City/State/ZIP Code Phon e Number RAD [place], [place] documented in this encounter Visit Diagnoses Not on filedocumented in this encounter
--- OUTSIDE RECORDS SUMMARY | 2022-05-22 15:18 | XMS_ITS | Encounter Summary ---
:1980 Author Organization [facility] Address [facility] [place] [address] Care Team Providers Name Role Phone None Primary Care Provider Unavailable Encounter Details Date Type Department Care Team Description 02/27/2020 Ancillary Procedure Radiology Library at Cezar Neff MD [facility] [place] [address] [place] [address] [phone] (Wo rk) Social History Tobacco Use Types Packs/Day Years Used Date Former Smoker Smokeless Tobacco: Never Used Comments: quit a few years ago Sex Assigned at Date Recorded Not on file documented as of this encounter Plan of Treatment Not on filedocumented as of this encounter Procedures Procedure Name Priority Date/Time Associated Diagnosis Comme nts FILM LIBRARY Routine 02/27/2020 12:00 AM Results for this STORAGE ONLY DX EDT procedure ar e in SHOULDER the results section. documented in this encounter Results Film Library- Storage Only DX Shoulder (02/27/2020 12:00 AM EDT) Specimen (Source) Anatomical Location Collection Method / Collectio n Time Received Time / Laterality Volume Narrative [facility] - 03/28/2020 9:03 PM EDT This exam is auto-finalizing. It's purpo se is for storage only. Mayo Neff MD G FILM LIBRARY ORDERABLES Performing Organization Address City/State/ZIP Code Phon e Number [place], [place] documented in this encounter Visit Diagnoses Not on filedocumented in this encounter Care Teams Assurance Associate Relationship Specialty Start Date End Date None PCP - General 12/15/19 02/27/20 None documented as of this encounter
--- OUTSIDE RECORDS SUMMARY | 2022-05-22 15:18 | XMS_ITS | Encounter Summary ---
:1980 Author Organization [facility] [place] [address] Care Team Providers Name Role Phone None Primary Care Provider Unavailable Reason for Visit Diagnostic Test (Routine) - Closed Specialty Diagnoses / Procedures Referred By Contact Refer red To Contact Radiology Diagnoses Other complicated headache syndrome Sanaz Rivas MD [facility] Rad Mri Procedures MRI Cervical Spine wo Contrast (Generic) [facility] [place] [place] [address] [place] [address] Referral ID Status Reason Start Date Expiration Date Visits V isits Requested Authorized [id number] Closed Specialty 01/12/2020 07/10/2020 2 2 Service Requested Encounter Details Date Type Department Care Team Description 01/19/2020 Hospital Encounter MRI at [facility] Sanaz Rivas MD [facility] [address] [place] [address] [phone] (Wo rk) Social History Tobacco Use Types Packs/Day Years Used Date Former Smoker Smokeless Tobacco: Never Used Comments: quit a few years ago Sex Assigned at Date Recorded Not on file documented as of this encounter Medications at Time of Discharge Medication Sig Dispensed Refills Start Date End Date ibuprofen (Advil;Motrin) Take 600 mg by 0 600 mg Tablet mouth every 6 hours as needed. omeprazole (PriLOSEC) 40 mg Take 40 mg by 0 10/06 Capsule, Delayed mouth daily as Release(E.C.) needed. acetaminophen (Tylenol) 325 Take 650 mg by 0 04/13/2020 mg Tablet mouth every 4 hours as needed. documented as of this encounter Progress Notes Roney Almeida MD - 01/19/2020 8:44 AM EDT INTERVENTIONAL RADIOLOGY FOCUSED H&P: Procedure: Moderate sedation for MRI The patient's history and physical exam have been reviewed and completed. There has been no intervalchange from that of the pre-operative history and physical exam done within the last 30 days. Physical Exam: Cardiovascular: Regular, Normal Pulmonary: Breath sounds clear to auscultation The planned procedure (and sedation plan if appropriate) , its benefits and risks, and alternatives were discussed with the patient. The patient consented to the procedure. PRE-SEDATION ASSESSMENT: Sedation Plan: moderate (conscious sedation) ASA: 2: Patient with mild systemic disease Mallampati: II: tonsillar pillars are blocked by the tongue Confirm NPO status: Yes History of anesthetic complications: No Current medications reviewed: Yes Allergies reviewed: Yes documented in this encounter Plan of Treatment Not on filedocumented as of this encounter Procedures Procedure Name Priority Date/Time Associated Diagnosis Comme nts MRI CERVICAL SPINE Routine 01/19/2020 10:32 AM Other complicat ed Results for this WO CONTRAST EDT headache syndrome procedure are in the results section. documented in this encounter Visit Diagnoses Not on filedocumented in this encounter Care Teams Rheumatology Nurse Relationship Specialty Start Date End Date None PCP - General 12/15/19 02/27/20 None documented as of this encounter
--- OUTSIDE RECORDS SUMMARY | 2022-05-22 15:18 | XMS_ITS | Encounter Summary ---
:1980 Author Organization [facility] [place] [address] Care Team Providers Name Role Phone Syed Leong MD Primary Care Provider Reason for Referral Diagnostic Test (Routine) - Closed Specialty Diagnoses / Procedures Referred By Contact Refer red To Contact Radiology Diagnoses Rotator cuff syndrome of right shoulder Svitlana Toussaint RN [facility] Rad Mri Procedures MRI Shoulder wo Contrast Right (Generic) [place], [place] [address] Phone: Referral ID Status Reason Start Date Expiration Date Visits V isits Requested Authorized [id number] Closed Specialty 03/12/2020 09/08/2020 1 1 Service Requested iagnostic Test (Routine) - Closed Specialty Diagnoses / Procedures Referred By Contact Refer red To Contact Radiology Diagnoses Acoustic neuroma Christopher Welsh MD [facility] Rad Mri Procedures MRI Brain wwo Contrast (Generic) [facility] [place] [address] [place] [address] Referral ID Status Reason Start Date Expiration Date Visits V isits Requested Authorized [id number] Closed Specialty 03/20/2020 09/16/2020 1 1 Service Requested Reason for Visit Diagnostic Test (Routine) - Closed Specialty Diagnoses / Procedures Referred By Contact Refer red To Contact Radiology Diagnoses Rotator cuff syndrome of right shoulder Svitlana Toussaint RN [facility] Rad Mri Procedures MRI Shoulder wo Contrast Right (Generic) [facility] [place] [address] Phone: Referral ID Status Reason Start Date Expiration Date Visits V isits Requested Authorized [id number] Closed Specialty 03/12/2020 09/08/2020 1 1 Service Requested Encounter Details Date Type Department Care Team Description 03/28/2020 Hospital Encounter MRI at [facility] Christopher Welsh Acoustic neuroma; [facility] MD Yanni Rotator cuff syndrome of right shoulder [address] [place] C[place] [address] OTOLARYNGOLOGY [phone] [facility] [address] Social History Tobacco Use Types Packs/Day Years Used Date Former Smoker Smokeless Tobacco: Never Used Comments: quit a few years ago Sex Assigned at Date Recorded Not on file documented as of this encounter Discharge Instructions Discharge InstructionsShana Lal RN - 03/28/2020 4:25 PM EDT You may have received medication before and/or during your procedure, which affects judgement and reaction time. Do not drive, operate machinery, drink alcoholic beverages, or make important decisions for 24 hours. Be careful on stairs, as you may be unsteady on your feet. You may eat a regular diet as tolerated. Do not smoke if you are alone. IV site -- slight redness, or tenderness is normal, you can use a warm compress. If tenderness and redness increases or foul drainage occurs, please contact your M. D. documented in this encounter Medications at Time of Discharge Medication Sig Dispensed Refills Start Date End Date ibuprofen (Advil;Motrin) 600 Take 600 mg by 0 mg Tablet mouth every 6 hours as needed. omeprazole (PriLOSEC) 40 mg Take 40 mg by 0 10/06 Capsule, Delayed Release(E.C.) mouth daily as needed. amitriptyline (Elavil) 25 mg Take 75 mg by 0 0 12/201911/29/2020 Tablet mouth as needed. white petrolatum-mineral [...] mg Take 1 tablet 49 tablet 0 0809/201904/25/2020 Tablet by mouth daily. Take 3 tabs/day [...] documented as of this encounter Progress Notes Hai Dunham MD - 03/28/2020 1:40 PM EDT Images from the original note were not included. PRE-SEDATION ASSESSMENT / FOCUSED H&P Addendum: The patient's history and physical exam have been reviewed and completed. There has been no intervalchange from that of the pre-operative history and physical exam done within the last 30 days. Risks (including hemorrhage, infection, allergic reaction, occlusion, respiratory depression), and benefits discussed and patient consented to the procedure. Most Recent Labs No results found for: WBC, HGB, HCT, MCV, PLATELET Physical Exam Heart: RRR Lungs: clear ASA: 1: Normally healthy patient Mallampati: II: tonsillar pillars are blocked by the tongue Confirm NPO status: Yes, Date and Time of last intake: 8am 03/28/20 Current medications reviewed: Yes Allergies reviewed: Yes Assessment I have reviewed the sedation plan for this patient???s case and concur that Fentanyl and Versed are appropriate choices for sedation and will be provided per the protocoled order set for this case I have reviewed with the patient, their prior experience with sedation. The patient has been NPO perprotocol. Hai Dunham MD PGY-3, Electrician Outside 03/28/2020 documented in this encounter Plan of Treatment [...] contact e number below. ? Narrative 03/29/2020 11:32 AM EDT EXAMINATION: MRI [...] For questions regarding this report, please contact [facility] number below. Syed Leong MD IMG MRI ORDERABLES MRI [...] MRI BRAIN WWO CONTRAST (GENERIC) CLINICAL HISTORY: Brain/SMALL WIND ENERGY INSTALLER neoplasm, as sess treatment response follow up [...] BRAIN WWO CONTRAST (GEN RUBIN) CLINICAL HISTORY: Brain/SMALL WIND ENERGY INSTALLER neoplasm, as sess treatment response follow up [...] Date Dose Rate Site gadoterate meglumine (DOTAREM) 0.5 Given 03/28/2020 4:03 PM EDT 15 mLs mmol/mL (376.9 mg/mL) injection 14.52 mL 14.52 mL (0.2 mL/kg/dose ? 72.6 kg), Intravenous, ONCE PRN, 1 dose, Starting on Jessica 03/28/20 at 1554, Until Jessica 03/28/20 at 1603, Per Protocol, Radiology Contrast, Routine ondansetron (ZOFRAN) injection 4 mg Given 03/28/2020 4:55 PM EDT 4 mg 4 mg, Intravenous, ONCE, 1 dose, On Jessica 03/28/20 at 1715, Routine documented in this encounter Care Teams Bias Cutter Relationship Specialty Start Date End Date Syed eLong MD PCP - General Family Medicine 02/28/20 08/04/20 [address] [facility] [address] [place] [phone] documented as of this encounter
--- OUTSIDE RECORDS SUMMARY | 2022-05-22 15:18 | XMS_ITS | Encounter Summary ---
:1980 Author Organization [facility] [place] [place] [address] Care Team Providers Name Role Phone None Primary Care Provider Unavailable Reason for Referral Diagnostic Test (Routine) - Closed Specialty Diagnoses / Procedures Referred By Contact Refer red To Contact Radiology Diagnoses Other complicated headache syndrome Sanaz Rivas MD [facility] Rad Mri Procedures MRI Cervical Spine wo Contrast (Generic) [facility] [address] [address] Referral ID Status Reason Start Date Expiration Date Visits V isits Requested Authorized [id number] Closed Specialty 01/12/2020 07/10/2020 2 2 Service Requested Reason for Visit Diagnostic Test (Routine) - Closed Specialty Diagnoses / Procedures Referred By Contact Refer red To Contact Radiology Diagnoses Other complicated headache syndrome Sanaz Rivas MD [facility] Rad Mri Procedures MRI Cervical Spine wo Contrast (Generic) [facility] [place], [place] [id number] [place] [phone] Referral ID Status Reason Start Date Expiration Date Visits V isits Requested Authorized [id number] Closed Specialty 01/12/2020 07/10/2020 2 2 Service Requested Encounter Details Date Type Department Care Team Description 01/19/2020 Hospital Encounter [place] [facility] Sanaz Rivas, Other complicated [facility] headache syndrome [address] [facility] [address] [place], [place] [phone] [id number] Social History Tobacco Use Types Packs/Day Years Used Date Former Smoker Smokeless Tobacco: Never Used Comments: quit a few years ago Sex Assigned at Date Recorded Not on file documented as of this encounter Discharge Instructions Discharge InstructionsSvitlana Calles RN - 01/19/2020 10:26 AM EDT Flavio Molina Hansel [id number] January 19, 2020 [facility] INTERVENTIONAL RADIOLOGY DEPARTMENT 1. You have [...] or concerns: During regular office hours call: [phone]. If it is after regular office hours, weekends or holidays, please call [phone] and ask to speak to the Junior Loan Processor orthopaedic surgeon for Interventional Radiology. Revised 10/25/19 documented in [...] documented as of this encounter Progress Notes Kaylen De La Paz RN - 01/16/2020 2:24 PM EDT MRI IV SEDATION NURSING DATABASE Name: FLAVIO HAMM Date of : 1980 AGE 39 y.o. Address: [address] [place] [phone] (home) Mobile: Telephone Information: Referring Provider: Sanaz Rivas Allergies Allergen Reactions ??? Amoxicillin-Pot Clavulanate Angioedema ??? Bupropion ??? Naproxen Other (See Comments) Throat swelled 08/18 ??? Sulfa (Sulfonamide Antibiotics) HEIGHT: 5'9 WEIGHT: 179 lbs SCAN REQUESTED: MRI Cervical spine wo contrast Order Questions Answers Clinical information / akbar questions: patient having increase in headaches, pain in back, known acoustic neuroma Where will study be performed? [facility] Radiology [120] Stat read required? No Does patient require sedation? None ON SCANNER #: 5 TYPE IN ANSWERS: 1. Have you ever had an MRI? Yes- see history below 2. Did you have medication for the prior MRI? Do you remember what you took? Have you ever taken Ativan or Valium? 3. Are you claustrophobic? 4. Can you ride in an elevator? 5. Do you snore, use CPAP, or on home O2 or have any breathing problems? 6. Do you have pain or anxiety? Do you take pain med's on a regular basis? 7. CAN YOU LAY FLAT? Anesthesia is needed for pt's with ALS, involuntary tremors, uses CPAP/Sleep apnea, failed IV sedation, Cognitive impairment? Pertinent PMH: There is no problem list on file for this patient. Pertinent PSH: No past surgical history on file. PRIOR SCAN DATE/S SEDATION TYPE SUCCESSFUL MRI's at [facility] (2) Valium, IV sedation (ED) Valium - no, ED IV sedation, yes 01/19/20 MRI Cervical Spine wo contrast Fentanyl 250mcg IV, versed 4 mg IV ??pass ? Laboratory Results: Medications: Prior to Admission medications Medication Sig Start Date End Date Taking? Authorizing Provider acetaminophen (Tylenol) 325 mg Tablet Take 650 mg by mouth Every 4 hours as needed. PROVIDER, HISTORICAL ibuprofen (Advil;Motrin) 600 mg Tablet Take 600 mg by mouth Every 6 hours as needed. PROVIDER, HISTORICAL omeprazole (PriLOSEC) 40 mg Capsule, Delayed Release(E.C.) TAKE 1 CAPSULE BY MOUTH EVERY DAY 10/06/19PROVIDER, HISTORICAL ( XXX ) You must have a truck driver heavy present when you check in. This patient has been informed that they require a truck driver heavy to drive them home after this procedure and that the truck driver heavy must stay inthe Building during the MRI. In the absence of a truck driver heavy, IR will not be able to sedate for your scan. Ptverbalized understanding of these instructions during the pre-procedure education via phone. Yes Revised 02/08/18 documented in this encounter Plan of Treatment Not on filedocumented as of this encounter Procedures Procedure Name Priority Date/Time Associated Diagnosis Comme nts MRI CERVICAL SPINE Routine 01/19/2020 10:32 AM Other complicat ed Results for this WO CONTRAST EDT headache syndrome procedure are in the results section. documented in this encounter Results MRI Cervical Spine wo Contrast (Generic) (01/19/2020 10:32 AM EDT) Anatomical Region Laterality Modality C-spine Magnetic Resonance Specimen (Source) Anatomical Location Collection Method / Collectio n Time Received Time / Laterality Volume Impressions 01/19/2020 10:43 AM EDT 1. ??Mild degenerative changes with no significant spinal canal stenosis. 2. ??Mild foraminal stenosis bilaterally at C3-4 and on the left at C4-5. Thank you for letting us participate in the care of this patient. For questions regarding this report, please contact e number below. ? Narrative 01/19/2020 10:43 AM EDT EXAMINATION: MRI CERVICAL SPINE WO CONTRAST (GENERIC) CLINICAL HISTORY: Brain/LEGAL AID neoplasm, chan rveillance patient having increase in headaches, pa in in back, known acoustic neuroma TECHNIQUE: MRI of the cervical spine performed with out intravenous contrast administration. COMPARISON: None FINDINGS: The vertebral bodies are maintained in h eight and alignment. Mild degenerative changes at C2-3 through 4 5 with mild lo ss of T2 bright disc signal. The visualized portions of the posterior fos sa are within normal limits. The spinal cord is normal in signal and caliber. C2-3: No significant spinal canal or for aminal stenosis. C3-4: Minimal disc osteophyte complex wi th no significant spinal canal stenosis. Mild bilateral facet arthropathy with mi ld bilateral neural foraminal stenosis. C4-5: No significant spinal canal stenos is. Mild left uncovertebral joint arthropathy and mild left facet arthropa thy with mild left neural foraminal stenosis. No significant right neural fo raminal stenosis. C5-6: No significant spinal canal stenos is. Mild bilateral foraminal stenosis left greater than right. No significant neural foraminal stenosis bilaterally. C6-7: No significant spinal canal or for aminal stenosis. C7-T1: No significant spinal canal or fo raminal stenosis. Procedure Note Tracy Newton MD - 01/19/2020Formatting o f this note might be different from the original. EXAMINATION: MRI CERVICAL SPINE WO CONTR AST (GENERIC) CLINICAL HISTORY: Brain/LEGAL AID neoplasm, chan rveillance patient having increase in headaches, pa in in back, known acoustic neuroma TECHNIQUE: MRI of the cervical spine performed with out intravenous contrast administration. COMPARISON: None FINDINGS: The vertebral bodies are maintained in h eight and alignment. Mild degenerative changes at C2-3 through 4 5 with mild lo ss of T2 bright disc signal. The visualized portions of the posterior fos sa are within normal limits. The spinal cord is normal in signal and caliber. C2-3: No significant spinal canal or for aminal stenosis. C3-4: Minimal disc osteophyte complex wi th no significant spinal canal stenosis. Mild bilateral facet arthropathy with mi ld bilateral neural foraminal stenosis. C4-5: No significant spinal canal stenos is. Mild left uncovertebral joint arthropathy and mild left facet arthropa thy with mild left neural foraminal stenosis. No significant right neural fo raminal stenosis. C5-6: No significant spinal canal stenos is. Mild bilateral foraminal stenosis left greater than right. No significant neural foraminal stenosis bilaterally. C6-7: No significant spinal canal or for aminal stenosis. C7-T1: No significant spinal canal or fo raminal stenosis. IMPRESSION 1. Mild degenerative changes with no sig nificant spinal canal stenosis. 2. Mild foraminal stenosis bilaterally a t C3-4 and on the left at C4-5. Thank you for letting us participate in the care of this patient. For questions regarding this report, please contact e number below. Electronically signed by: Tracy Newton [facility] ([phone]), at 01/19/2020 10:43 AM Sanaz Rivas MD IMG MRI ORDERABLES documented in this encounter Visit Diagnoses Diagnosis Other complicated headache syndrome documented in this encounter Administered Medications Inactive Administered Medications - up to 3 most recent administrations Medication Order MAR Action Action Date Dose Rate Site fentaNYL (PF) 50 mcg/mL injection Given 01/19/2020 9:30 AM EDT 50 mcg 1 dose, Starting on Wed01/19/20 at 0851, Until Wed01/19/20 at 0930, Kaylen De La Paz: cabinet override Given 01/19/2020 9:24 AM EDT 50 mcg Given 01/19/2020 9:15 AM EDT 50 mcg fentaNYL (PF) 50mcg/mL injection Given 01/19/2020 9:40 AM EDT 50 mcg 25 mcg, Intravenous, EVERY 5 MIN PRN, 12 doses, Starting on Wed01/19/20 at 0938, Until 01/20/20 at 0435, Pain, or anxiety, 25 mcg IV every 5 minutes to a maximum of 300 mcg PRN for pain or anxiety., Routine midazolam (PF) (VERSED) injection 0.5 mg Given 01/19/2020 9:30 AM EDT 1 mg 0.5 mg, Intravenous, EVERY 5 MIN PRN, 10 doses, Starting on Wed01/19/20 at 0839, Until 01/20/20 at 0435, Anxiety, If patient's anxiety remains uncontrolled, may titrate to Moderate Sedation per [facility] Moderate Sedation Policy: 0.5mg IV every 5 minutes to a maximum of 5 mg., Routine Given 01/19/2020 9:24 AM EDT 1 mg Given 01/19/2020 9:15 AM EDT 1 mg sodium chloride 0.9 % (flush) flush 5 mL Given 01/19/2020 9:00 AM EDT 5 mLs 5 mL, Intravenous, 2 TIMES DAILY, First dose on Wed01/19/20 at 0900, Until Discontinued, Routine documented in this encounter Care Teams Cooperative Education Director Relationship Specialty Start Date End Date None PCP - General 12/15/19 02/27/20 None documented as of this encounter
--- OUTSIDE RECORDS SUMMARY | 2022-05-22 15:18 | XMS_ITS | Encounter Summary ---
:1980 Author Organization [facility] [place] [address] Care Team Providers Name Role Phone Unavailable Primary Care Provider Unavailable Encounter Details Date Type Department Care Team Description 12/12/2019 Telephone Otolaryngology at [facility] [place] [address] Social History Tobacco Use Types Packs/Day Years Used Date Never Assessed Sex Assigned at Date Recorded Not on file documented as of this encounter Miscellaneous Notes Telephone Encounter - Anita Ferrera - 12/12/2019 11:31 AM EDT Called and left voicemail to call back to see if can get him to come on on Wednesday12/15/19 instead of appointment in January as Dr Welsh would like to see him sooner documented in this encounter Plan of Treatment Not on filedocumented as of this encounter Visit Diagnoses Not on filedocumented in this encounter
--- OUTSIDE RECORDS SUMMARY | 2022-05-22 15:18 | XMS_ITS | Encounter Summary ---
:1980 Author Organization [facility] [address] Care Team Providers Name Role Phone None Primary Care Provider Unavailable Encounter Details Date Type Department Care Team Description 01/11/2020 Orders Only Radiology at [facility] Steven Muir, [facility] [place] [address] [facility] [phone] RADIOLOGY DEPT [place], [place] [address] (Wo rk) Social History Tobacco Use Types Packs/Day Years Used Date Former Smoker Smokeless Tobacco: Never Used Comments: quit a few years ago Sex Assigned at Date Recorded Not on file documented as of this encounter Plan of Treatment Not on filedocumented as of this encounter Visit Diagnoses Not on filedocumented in this encounter Care Teams Telephonic Nurse Case Manager Relationship Specialty Start Date End Date None PCP - General 12/15/19 02/27/20 None documented as of this encounter
--- OUTSIDE RECORDS SUMMARY | 2022-05-22 15:18 | XMS_ITS | Encounter Summary ---
:1980 Author Organization [facility] Address [facility] [place] [address] Care Team Providers Name Role Phone None Primary Care Provider Unavailable Reason for Visit Reason Onset Date Comments TeleHealth 01/30/2020 Appt 01/31/20 Encounter Details Date Type Department Care Team Description 01/30/2020 Telephone Neurology at [facility] Sanaz Rivas MD TeleHealth (Appt [facility] 01/12 ) [place] [address] [place] [address] [phone] (Wo rk) Social History Tobacco Use Types Packs/Day Years Used Date Former Smoker Smokeless Tobacco: Never Used Comments: quit a few years ago Sex Assigned at Date Recorded Not on file documented as of this encounter Miscellaneous Notes Telephone Encounter - Mita Dixon CMA - 01/30/2020 11:09 AM EDT Spoke with patient to review medications and allergies prior to upcoming tele- appointment scheduledwith Neurology provider. documented in this encounter Plan of Treatment Not on filedocumented as of this encounter Visit Diagnoses Not on filedocumented in this encounter Care Teams Bank Operations Officer Relationship Specialty Start Date End Date None PCP - General 12/15/19 02/27/20 None documented as of this encounter
--- OUTSIDE RECORDS SUMMARY | 2022-05-22 15:18 | XMS_ITS | Encounter Summary ---
:1980 Author Organization [facility] [place] [address] Care Team Providers Name Role Phone Syed Leong MD Primary Care Provider Encounter Details Date Type Department Care Team Description 02/28/2020 Telephone Otolaryngology at [facility] [place] [address] Social History Tobacco Use Types Packs/Day Years Used Date Former Smoker Smokeless Tobacco: Never Used Comments: quit a few years ago Sex Assigned at Date Recorded Not on file documented as of this encounter Miscellaneous Notes Telephone Encounter - Ingrid Trujillo - 02/28/2020 10:06 AM EDT Left messages on cell and home numbers to schedule surgery. documented in this encounter Plan of Treatment Not on filedocumented as of this encounter Visit Diagnoses Not on filedocumented in this encounter Care Teams Maintenance Department Manager Relationship Specialty Start Date End Date Syed Leong MD PCP - General Family Medicine 02/28/20 08/04/20 [address] [place] [id number] documented as of this encounter
--- OUTSIDE RECORDS SUMMARY | 2022-05-22 15:18 | XMS_ITS | Encounter Summary ---
:1980 Author Organization [facility] [place] [address] Care Team Providers Name Role Phone Unavailable Primary Care Provider Unavailable Encounter Details Date Type Department Care Team Description 11/12/2019 Ancillary Procedure Radiology Library at Dayo Le[facility] [address] [address] [place], [place] [phone] (Wo rk) Social History Tobacco Use Types Packs/Day Years Used Date Never Assessed Sex Assigned at Date Recorded Not on file documented as of this encounter Plan of Treatment Not on filedocumented as of this encounter Procedures Procedure Name Priority Date/Time Associated Diagnosis Comme nts FILM LIBRARY Routine 11/12/2019 12:00 AM Results for this STORAGE ONLY MR EST procedure ar e in HEAD the results section. documented in this encounter Results Film Library- Storage Only MR Head (11/12/2019 12:00 AM EST) Specimen (Source) Anatomical Location Collection Method / Collectio n Time Received Time / Laterality Volume Narrative NEEMA BRAY - 11/20/2019 10:33 AM EDT This exam is auto-finalizing. It's purpo se is for storage only. Syed Leong MD Han FILM LIBRARY ORDERABLES Performing Organization Address City/State/ZIP Code Phon e Number RAD [place], [place] documented in this encounter Visit Diagnoses Not on filedocumented in this encounter
--- OUTSIDE RECORDS SUMMARY | 2022-05-22 15:18 | XMS_ITS | Encounter Summary ---
:1980 Author Organization [facility] [place] [address] Care Team Providers Name Role Phone None Primary Care Provider Unavailable Reason for Referral Diagnostic Test (Routine) - Closed Specialty Diagnoses / Procedures Referred By Contact Refer red To Contact Radiology Diagnoses Other complicated headache syndrome Sanaz Rivas MD [facility] Rad Mri Procedures MRI Cervical Spine wo Contrast (Generic) [facility] [place] [address] [place] [address] Referral ID Status Reason Start Date Expiration Date Visits V isits Requested Authorized [id number] Closed Specialty 01/12/2020 07/10/2020 2 2 Service Requested Encounter Details Date Type Department Care Team Description 01/10/2020 Orders Only Neurology [place] [facility] Sanaz Rivas MD Other complicated [facility] [address] [place] [address] [place] [address] [phone] Social History Tobacco Use Types Packs/Day Years Used Date Former Smoker Smokeless Tobacco: Never Used Comments: quit a few years ago Sex Assigned at Date Recorded Not on file documented as of this encounter Plan of Treatment Not on filedocumented as of this encounter Results MRI Cervical Spine wo [...] CERVICAL SPINE WO CONTRAST (GENERIC) CLINICAL HISTORY: 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 Mild degenerative changes with no si gnificant spinal canal stenosis. 2. Mild foraminal stenosis bilaterally a t C3-4 and on the left at C4-5. Thank you for letting us participate in the care of this patient. For questions regarding this report, please contact e number below. Sanaz Rivas MD IMG MRI ORDERABLES documented in this encounter Visit Diagnoses Diagnosis Other complicated headache syndrome Other complicated headache syndrome documented in this encounter Care Teams Clinical Trial Associate Relationship Specialty Start Date End Date None PCP - General 12/15/19 02/27/20 None documented as of this encounter
--- OUTSIDE RECORDS SUMMARY | 2022-05-22 15:18 | XMS_ITS | Encounter Summary ---
:1980 Author Organization [place] [address] Care Team Providers Name Role Phone Syed Leong MD Primary Care Provider Reason for Referral Specialty Diagnoses / Procedures Referred By Contact [place] [address] Referral ID Status Reason Start Date Expiration Date Visits Requ ested Visits Authorized Encounter Details Date Type Department Care Team Description 03/26/2020 External Results Audiology at [facility] Mai Rojo [place] [address] AUDIOLOGY DEPT [phone] [place], [place] [address] (Wo rk) Social History Tobacco Use Types Packs/Day Years Used Date Former Smoker Smokeless Tobacco: Never Used Comments: quit a few years ago Sex Assigned at Date Recorded Not on file documented as of this encounter Plan of Treatment Not on filedocumented as of this encounter Procedures Procedure Name Priority Date/Time Associated Diagnosis Comme nts AMB REFERRAL TO AUDIOLOGY Routine 02/28/2020 documented in this encounter Results Referral to Audiology (02/28/2020) Narrative This result has an attachment that is no t available. Mai RHODES OUTPATIENT REFERRAL ORDERABL ES documented in this encounter Visit Diagnoses Not on filedocumented in this encounter Care Teams Brim Welt Sewing Machine Operator Relationship Specialty Start Date End Date Syed Leong MD PCP - General Family Medicine 02/28/20 08/04/20 [address] [facility] [address] [place] [address] documented as of this encounter
--- OUTSIDE RECORDS SUMMARY | 2022-05-22 15:18 | XMS_ITS | Encounter Summary ---
:1980 Author Organization [facility] [place] [address] Care Team Providers Name Role Phone None Primary Care Provider Unavailable Encounter Details Date Type Department Care Team Description 12/22/2019 Orders Only Otolaryngology at Christopher Hallman MD [facility] [place] [address] OTOLARYNGOLOGY DEPT. [phone] [place], [place] [address] (Wo rk) Social History Tobacco Use Types Packs/Day Years Used Date Former Smoker Smokeless Tobacco: Never Used Comments: quit a few years ago Sex Assigned at Date Recorded Not on file documented as of this encounter Plan of Treatment Not on filedocumented as of this encounter Visit Diagnoses Not on filedocumented in this encounter Care Teams Cinder Crew Worker Relationship Specialty Start Date End Date None PCP - General 12/15/19 02/27/20 None documented as of this encounter
--- OUTSIDE RECORDS SUMMARY | 2022-05-22 15:18 | XMS_ITS | Encounter Summary ---
:1980 Author Organization [facility] [place] [address] Care Team Providers Name Role Phone None Primary Care Provider Unavailable Encounter Details Date Type Department Care Team Description 02/19/2020 Telephone Otolaryngology at [facility] [place] [address] Social History Tobacco Use Types Packs/Day Years Used Date Former Smoker Smokeless Tobacco: Never Used Comments: quit a few years ago Sex Assigned at Date Recorded Not on file documented as of this encounter Miscellaneous Notes Telephone Encounter - Yola Mahajan RN - 02/19/2020 10:07 AM EDT 's call returned. states their situation has changed and patient would like to move forward with planning surgery now. has many questions, as she didn't accompany patient at his appointment on 12/14. Discussion with Dr. Welsh -patient doesn't need another appointment with him; he'llplace surgical orders. Explained to once surgical orders are placed, then the OR schedulers will coordinate a date that works and let patient know. give this RN's direct line incase they haveother questions or concerns. No other questions at this time. documented in this encounter Plan of Treatment Not on filedocumented as of this encounter Visit Diagnoses Not on filedocumented in this encounter Care Teams Explosives Mixer Operator Relationship Specialty Start Date End Date None PCP - General 12/15/19 02/27/20 None documented as of this encounter
--- OUTSIDE RECORDS SUMMARY | 2022-05-22 15:24 | XMS_ITS | Encounter Summary ---
:1980 Author Organization [facility] Address [address] [place] [address] Care Team Providers Name Role Phone Syed Leong MD Primary Care Provider Unavailable Unknown, Provider Primary Care Provider Encounter Details Date Type Department Care Team Description 11/30/2019 Lab Requisition [facility] Unknown, Provider, Pathology & Laboratory [facility] [address] [place] [address] Social History Tobacco Use Types Packs/Day Years [...] Pathologist Sig nature FABIOLA Interpretation Negative Negative [facility] Specimen Blood - Venous blood (substance) Narrative [facility] - 12/01/2019 13:25 EDT Results were obtained with the INOVA NOV A Lite HEp-2 FABIOLA Kit by indirect immunofluorescence. Performing Organization Address City/State/ZIP Code Phon e Number [facility] [address] [place] [address] SERVICES documented in this encounter Visit Diagnoses Not on filedocumented in this encounter Care Teams Recovery Auditor Relationship Specialty Start Date End Date Syed Leong MD PCP - General 04/08/09 0 Unknown, ProviderMD PCP - General 11/24/20 documented as of this encounter
--- OUTSIDE RECORDS SUMMARY | 2022-05-22 15:24 | XMS_ITS | Encounter Summary ---
:1980 Author Organization [facility] Address [address] [place] [address] Care Team Providers Name Role Phone Syed Leong MD Primary Care Provider Unavailable Reason for Referral Consult (Routine) - Authorization Not Required Specialty Diagnoses / Procedures Referred By Contact Refer red To Contact Diagnoses Other complicated headache syndrome Vertigo Syed Leong MD [address] [place] [address] [address] Referral ID Status Reason Start Expiration Visits Visits Date Date Requested Authorized [id number] Authorization Not 12/05/2019 1 1 Required Question Answer Reason for Request: headaches, vertigo, nausea, fatigue. atypical for migraine, trigeminal neuralgia Comments See office note of 11/30/19 ardiology (3 - 10 Business Days) - Closed Specialty Diagnoses / Procedures Referred By Contact Refer red To Contact Diagnoses Heart palpitations Syed Leong MD Procedures EKG 12-LEAD [address] [place] [address] [address] Referral ID Status Reason Start Date Expiration Date Visits Requ ested Visits Authorized [id number] Closed 12/05/2019 1 1 Reason for Visit Reason Onset Date Comments Results 12/05/2019 xrays, labs Encounter Details Date Type Department Care Team Description 12/05/2019 Telephone [facility] Syed Leong, Resu lts (xrays, labs) Family Medicine - Be lat[place] [address] [facility] [address] [place] [address] Social History Tobacco Use Types Packs/Day Years [...] Encounter - Syed Leong MD - 12/05/2019 2466 EDT Called patient to inform him of [...] giddiness documented in this encounter Care Teams Roll Line Operator Relationship Specialty Start Date End Date Syed Leong MD PCP - General 04/08/09 0 documented as of this encounter
--- OUTSIDE RECORDS SUMMARY | 2022-05-22 15:24 | XMS_ITS | Encounter Summary ---
:1980 Author Organization [facility] Address [address] [place] [address] Care Team Providers Name Role Phone Syed [...] on filedocumented in this encounter Care Teams Fountain Attendant Relationship Specialty Start Date End Date Syed Leong MD PCP - General 04/08/09 0 documented as of this encounter
--- OUTSIDE RECORDS SUMMARY | 2022-05-22 15:24 | XMS_ITS | Encounter Summary ---
:1980 Author Organization [facility] Address [address] [place] [address] Care Team Providers Name Role Phone Syed Leong MD Primary Care Provider Unavailable Reason for Referral Consult (3 - 10 Business Days) - Specialty Report Received Specialty Diagnoses / Procedures Referred By Contact Refer red To Contact Diagnoses Acute pain of right shoulder Nitish Lopez, LICENSED SURVEYOR [address] [phone] Referral ID Status Reason Start Expiration Visits Visits Date Date Requested Authorized [id number] Specialty Specialty 02/22/2020 1 1 Report Services [...] Department Care Team Description 02/22/2020 Office [address] [facility] Nitish Lopez, Acute pain of right shoulder (Primary Dx); Family Medicine - LICENSED SURVEYOR Need for Td vaccine [place] [address] [facility] [address] [facility] [address] [phone] Social History Tobacco Use Types Packs/Day [...] APRN - 02/22/2020 13:15 EDT Orthopedic number: [phone] documented in this encounter Progress Notes Nitish [...] headache ??? Chronic fatigue ??? Dizziness ??? 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
--- OUTSIDE RECORDS SUMMARY | 2022-05-22 15:24 | XMS_ITS | Encounter Summary ---
:1980 Author Organization [facility] Address [address] [place] [address] Care Team Providers Name Role Phone Syed Leong MD Primary Care Provider Unavailable Reason for Visit Reason Onset Date Comments Results 11/15/2019 Encounter Details Date Type Department Care Team Description 11/15/2019 Telephone [facility] Syed Leong MD [facility] Medicine - [address] [address] Social History Tobacco Use Types Packs/Day Years [...] push images; faxed notes with referral to [facility] elephone Encounter - Syed Leong MD - 11/20/2019 0924 EDT Please have [facility] push films to [facility] Please send the Consult note from [facility] to [facility] with the referral elephone Encounter - Bear Willingham - 11/20/2019 0840 EDT Patient's called and stated he was not happy with the answer from [facility], and they do want a referral to [facility] for a second opinion. I faxed the referral to [facility] Connection Line. Bear Willingham elephone Encounter - [...] pt, since we had a referral to [facility] on file. Pt states [facility] canceled last order since they declined appointment. Pt would like to have Dr Leong look at notes from 11/15/19 and advise about 2nd opinion. He is looking to have a referral sent to [facility] (we can reprint the one we initially sent.) Please advise. Telephone Encounter - Yanet Mathews - 11/16/2019 1252 EST Pt's calling to request request a referral to [facility] ENT elephone Encounter - Alejandra Dunham RN [...] on filedocumented in this encounter Care Teams Cloth Wire Weaver Relationship Specialty Start Date End Date Syed Leong MD PCP - General 04/08/09 0 documented as of this encounter
--- OUTSIDE RECORDS SUMMARY | 2022-05-22 15:24 | XMS_ITS | Encounter Summary ---
:1980 Author Organization [facility] Address [address] [place] [address] Care Team Providers Name Role Phone Syed Leong MD Primary Care Provider Unavailable Unknown, Provider Primary Care Provider Encounter Details Date Type Department Care Team Description 11/12/2019 Results Only [facility] - Nitish Amador, Imaging [facility] Radiology Resul ts [address] [place] [phone] [facility] 1 [place] [phone] (Wo rk) Social History Tobacco [...] WO CONTRAST (11/12/2019 14:56 EST) Specimen Narrative [facility] - 11/12/2019 14:56 EST ? [...] MD ? Transcribed Date/Time: 11/12/2019 (1456) ? College Instructor: ? Printed Date/Time: 11/12/2019 (14 56) ? [...] CC: Syed Leong MD Transcribed Date/Time: 11/12/2019 (4895 ) College Instructor: Printed Date/Time: 11/12/2019 (4938) PAGE 2 Signed Report Performing Organization Address City/State/ZIP Code Phon e Number [facility] documented in this encounter Visit Diagnoses Not on filedocumented in this encounter Care Teams Certified Ethical Hacker Relationship Specialty Start Date End Date Syed Leong MD PCP - General 04/08/09 0 Unknown, Provider, PCP - General 11/24/20 documented as of this encounter
--- OUTSIDE RECORDS SUMMARY | 2022-05-22 15:24 | XMS_ITS | Encounter Summary ---
:1980 Author Organization [facility] Address [address] [place] [address] Care Team Providers Name Role Phone Syed Leong MD Primary Care Provider Unavailable Reason for Visit Reason Onset Date Comments Other 2019 Encounter Details Date Type Department Care Team Description 2019 Telephone [facility] Syed Leong MD [facility] Medicine - [address] [address] Social History Tobacco Use Types Packs/Day Years [...] elephone Encounter - Gaby Yu - 2019 0845 EDT Joanie, , is calling because Flavio has been sick for over a year and she believes he is getting rapidly worse. She was concerned that he wanted to cancel his next appointment with Dr. Leong. Sheis hoping that maybe Dr. Leong could help get Flavio seen sooner at [facility]. She is hoping to speak with Dr. Leong if possible. Joanie can be reached at [phone] signed by Gaby Yu at 2019 8:56 EDTdocumented in this encounter Plan of Treatment Not on filedocumented as of this encounter Visit Diagnoses Not on filedocumented in this encounter Care Teams Supervisor Wound Relationship Specialty Start Date End Date Syed Leong MD PCP - General 04/08/09 0 documented as of this encounter
--- OUTSIDE RECORDS SUMMARY | 2022-05-22 15:24 | XMS_ITS | Encounter Summary ---
:1980 Author Organization [facility] Address [address] [place] [address] Care Team Providers Name Role Phone Syed Leong MD Primary Care Provider Unavailable Reason for Visit Reason Onset Date Comments Other 03/07/2020 Encounter Details Date Type Department Care Team Description 03/07/2020 Telephone [facility] Baudilio Shields, Other Orthopedics & Sport [facility] [address] [facility] [address] [place], [place] [phone] [place] [phone] (Wo rk) Social History Tobacco Use Types [...] unspecified documented in this encounter Care Teams Electromatic Typist Relationship Specialty Start Date End Date Syed Leong MD PCP - General 04/08/09 0 documented as of this encounter
--- OUTSIDE RECORDS SUMMARY | 2022-05-22 15:24 | XMS_ITS | Encounter Summary ---
:1980 Author Organization [facility] Address [address] [place] [address] Care Team Providers Name Role Phone Syed Leong MD Primary Care Provider Unavailable Reason for Visit Reason Onset Date Comments Hearing Loss 05/03/2019 Encounter Details Date Type Department Care Team Description 05/03/2019 Telephone [facility] ENT - Lico Gregg AuD Hearing Loss [address] [place], [place] [phone] [place] [phone] (Wo rk) Social History Tobacco Use Types [...] on filedocumented in this encounter Care Teams Collection Specialist Relationship Specialty Start Date End Date Syed Leong MD PCP - General 04/08/09 0 documented as of this encounter
--- OUTSIDE RECORDS SUMMARY | 2022-05-22 15:24 | XMS_ITS | Encounter Summary ---
:1980 Author Organization [facility] Address [address] [place] [address] Care Team Providers Name Role Phone Syed Leong MD Primary Care Provider Unavailable Reason for Visit Reason Onset Date Comments Referral Request 12/01/2019 Encounter Details Date Type Department Care Team Description 12/01/2019 Telephone [facility] Syed Leong MD Referral Request [facility] - [address] [address] Social History Tobacco Use Types Packs/Day Years [...] Notes Telephone Encounter - Bear Willingham - 12/01/2019 1324 EDT Spoke to [facility] and updated the order so the patient will be able to schedule sooner than 01/01/20. Patient has been notified and will call Radiology to reschedule for next week. Bear Willingham elephone Encounter - Syed Leong MD - 12/01/2019 1133 EDT Please call radiology and change my offer to have his cspine xray delayed a month to requesting thatit be done more urgently. Then if they can accommodate us, let patient/ know. elephone Encounter - Beverly Greco - 12/01/2019 1126 EDT Patient's calling, said he was supposed to have an x-ray so that Dr. Leong could make some decisions and x-ray was canceled. She would like a call back. Said that radiology won't schedule unless they hear from Dr. Leong that it is urgent. Please call and advise documented in this encounter Plan of Treatment Not on filedocumented as of this encounter Visit Diagnoses Not on filedocumented in this encounter Care Teams Tail Board Man Relationship Specialty Start Date End Date Syed Leong MD PCP - General 04/08/09 0 documented as of this encounter
--- OUTSIDE RECORDS SUMMARY | 2022-05-22 15:24 | XMS_ITS | Encounter Summary ---
:1980 Author Organization [facility] Address [address] [place] [address] Care Team Providers Name Role Phone Syed Leong MD Primary Care Provider Unavailable Reason for Visit Reason Onset Date Comments Results 11/02/2019 Encounter Details Date Type Department Care Team Description 11/02/2019 Telephone [facility] Family Syed Leong MD [facility] Medicine - [address] [address] Social History Tobacco Use Types Packs/Day Years Used Date Former Smoker Cigarettes 10 Quit: 03/25/20 09 Smokeless Tobacco: Never Used Alcohol Use Standard Drinks/Week Comments No 0 (1 standard drink = 0.6 oz pure alcoho l) occ Sex Assigned at Date Recorded Male 03/11/2020 9:13 EDT documented as of this encounter Miscellaneous Notes Telephone Encounter - Bere Maynard - 11/03/2019 1058 EST Called [facility]. And talked to Nimesh and asked for images to be sent to [facility], he is working on this request now. elephone Encounter - Syed Leong MD - 11/03/2019 1006 EST [address] spoke with Dr[address] Melgoza about the results of the MRI and he suggested referral to Dr. Chacon at [facility]. Ispoke with the patient and explained about acoustic neuroma and how that could cause hearing loss, tinnitus, and dizziness all of which she is experiencing. He agrees to the referral. PSS--have [facility] radiology push the MRI brain images from yesterday to [facility]. elephone Encounter - Iesha Borden, RN - 11/02/[address] Hodgson calling with results of MRI of the head. 16 mm left IAC mass. Probable acoustic neuroma. Dr Hodgson will be signing the report in a few minutes elephone Encounter - Bere Maynard - 11/02/2019 1151 EST Calling with results documented in this encounter Plan of Treatment Not on filedocumented as of this encounter Visit Diagnoses Diagnosis Left acoustic neuroma (HCC-CMS) (HCC) - Primary Benign neoplasm of cranial nerves Asymmetrical hearing loss of left ear Tinnitus of left ear Unspecified tinnitus Dizziness Dizziness and giddiness documented in this encounter Care Teams Computer System Specialist Relationship Specialty Start Date End Date Syed Leong MD PCP - General 04/08/09 0 documented as of this encounter
--- OUTSIDE RECORDS SUMMARY | 2022-05-22 15:24 | XMS_ITS | Encounter Summary ---
:1980 Author Organization [facility] Address [address] [place] [address] Care Team Providers Name Role Phone Syed Leong MD Primary Care Provider Unavailable Reason for Referral Radiology Services (Routine) - Closed Specialty Diagnoses / Procedures Referred By Contact Refer red To Contact Diagnoses Asymmetrical hearing loss of left ear Tinnitus, left ear Dizziness Syed Leong MD Procedures MR HEAD WO CONTRAST [address] [facility] [address] [place] [address] Referral ID Status Reason Start Date Expiration Date Visits Requ ested Visits Authorized [id number] Closed 09/30/2019 1 1 Reason for Visit Reason Onset Date Comments Referral Request 09/23/2019 Encounter Details Date Type Department Care Team Description 09/23/2019 Telephone [facility] Syed Leong MD Referral Request Medicine - [place] [address] [facility] [address] [address] Social History Tobacco Use Types Packs/Day Years [...] sedation. Also c/o fatigue, sleepiness. 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 Still not feeling [...] giddiness documented in this encounter Care Teams Home Visit Field Care Manager Relationship Specialty Start Date End Date Syed Leong MD PCP - General 04/08/09 0 documented as of this encounter
--- OUTSIDE RECORDS SUMMARY | 2022-05-22 15:24 | XMS_ITS | Encounter Summary ---
:1980 Author Organization [facility] Address [address] [place] [address] Care Team Providers Name Role Phone Syed Leong MD Primary Care Provider Unavailable Encounter Details Date Type Department Care Team Description 09/28/2019 Results Only [facility] Tiny Aponte ND Lab - [address] [place] [address] [address] [place] [address] [place] [address] [phone] Social History Tobacco Use Types Packs/Day Years [...] - Routine 09/28/2019 12:10 Results for this [facility] EST procedure are i n the results section. documented in this encounter Results TICK PANEL PCR - [facility] (09/28/2019 12:10 EST) ANAPLASMA Negative Negative [facility] PHAGOCYTOPHILIUM - [facility] BABESIA DIVERGENS/MO-1 Negative Negative [facility] Comment: [facility] ADDITIONAL INFORMATION ------ This test was developed and its performance characteri stics determined by [facility] in a manner consistent with CLIA requirements. This test has not been cleared or approv ed by the U.S. Food and Drug Administration. BABESIA DUNCANI - [facility] Negative Negative [facility] BABESIA MICROTIC - Negative Negative [facility] B.MIYAMOTOI PCR Negative Negative [facility] Comment: [facility] ADDITIONAL INFORMATION ------ This test was developed and its performance characteri stics determined by [facility] in a manner consistent with CLIA requirements. This test has not been cleared or approv ed by the U.S. Food and Drug Administration. Test Performed by: [address] [address] Division Order Analyst: Bryant Verde M.D. Ph.D.; CLIA# [id number] EHRLICHIA CHAFFEENSIS Negative Negative [facility] - [facility] EHRLICHIA Negative Negative [facility] EWINGII/CANIS - [facility] EHRLICHIA MURIS-LIKE - Negative Negative [facility] Comment: [facility] ADDITIONAL INFORMATION ------ This test was developed and its performance characteri stics determined by [facility] in a manner consistent with CLIA requirements. This test has not been cleared or approv ed by the U.S. Food and Drug Administration. Specimen Narrative [facility] - 020 11:02 EST Does PT Have a Latex Allergy? NO Performing Organization Address City/State/ZIP Code Phon e Number [facility] [address] [place], [place] [phone] [place] [address] LAB documented in this encounter Visit Diagnoses Not on filedocumented in this encounter Care Teams Head Orthopedic Team Physician Relationship Specialty Start Date End Date Syed Leong MD PCP - General 04/08/09 0 documented as of this encounter
--- OUTSIDE RECORDS SUMMARY | 2022-05-22 15:24 | XMS_ITS | Encounter Summary ---
:1980 Author Organization [facility] Address [address] [place] [address] Care Team Providers Name Role Phone Unavailable Primary Care Provider Unavailable Encounter Details Date Type Department Care Team Description 05/23/2020 - Hospital Encounter [facility] No Show 05/24/2020 Medical Center Main [place] Pre-Surgical Testing [address] [place] [address] Social History Tobacco Use Types Packs/Day Years [...]
--- OUTSIDE RECORDS SUMMARY | 2022-05-22 15:24 | XMS_ITS | Encounter Summary ---
:1980 Author Organization [facility] Address [address] [place] [address] Care Team Providers Name Role Phone Syed Leong MD Primary Care Provider Unavailable Reason for Visit Reason Onset Date Comments Dizziness 11/10/2019 Encounter Details Date Type Department Care Team Description 11/10/2019 Telephone [facility] Syed Leong MD Dizziness Medicine - [address] [address] Social History Tobacco Use Types Packs/Day Years [...] headaches and dizziness. Has an appointment [place] [facility] [place] Wednesday and would to know what he can do until then? elephone Encounter - Lenny Son - 11/10/2019 1532 EST Headaches are getting worse, dizziness, extending down into his neck. Left side. documented in this encounter Plan of Treatment Not on filedocumented as of this encounter Visit Diagnoses Not on filedocumented in this encounter Care Teams Vessel Scrapper Relationship Specialty Start Date End Date Syed Leong MD PCP - General 04/08/09 0 documented as of this encounter
--- OUTSIDE RECORDS SUMMARY | 2022-05-22 15:24 | XMS_ITS | Encounter Summary ---
:1980 Author Organization [facility] Address [address] [place] [address] Care Team Providers Name Role Phone Syed Leong MD Primary Care Provider Unavailable Encounter Details Date Type Department Care Team Description 03/20/2019 Results Only [facility] Syed Leong MD [facility] [place] [address] [facility] [address] [place] [address] Social History Tobacco Use Types Packs/Day Years [...] 17:00 Results fo r this METABOLIC PANEL ([facility]) EDT proce dure are in the results section. C REACTIVE PROTEIN Routine 03/20/2019 17:00 Resul ts for this EDT procedure are i n the results section. documented in this encounter Results C REACTIVE PROTEIN (03/20/2019 17:00 EDT) Pathologist Sig nature C-Reactive Protein, <5.0 <10.0 mg/L [facility] LAB Specimen Narrative [facility] - 019 17:40 EDT Does PT Have a Latex Allergy? NO Performing Organization Address City/State/ZIP Code Phon e Number [facility] [address] [place], [place] [id number] [place] [address] LAB COMPREHENSIVE METABOLIC PANEL ([facility]) (03/20/2019 17:00 EDT) Albumin, External 4.7 3.4 - 4.9 [facility] g/dL [facility] Total Alkaline 51 38 - 126 U/L [facility] Phosphatase, [facility] External Bilirubin, Total, 0.3 0.2 - 1.3 [facility] External mg/dL [facility] Bun, External 21 10 - 26 mg/dL [facility] Calcium, External 10.1 8.5 - 10.5 [facility] mg/dL [facility] Chloride, External 101 96 - 110 [facility] mmol/L [facility] CO2, External 29 21 - 32 mEq/L [facility] Creatinine, 1.01 0.66 - 1.25 [facility] External mg/dL [facility] GFR, Kelvin/Est., >60 [facility] External Comment: [facility] Chronic renal impairment is defined as GFR <60 Multiply result by 1.210 for patients . Glucose, Serum, 93 70 - 100 [facility] External mg/dL [facility] Potassium, 4.5 3.5 - 5.0 [facility] External mEq/L [facility] Sodium, External 138 136 - 145 [facility] mEq/L [facility] Total Protein, 7.3 6.2 - 8.2 [facility] External gm/dL [facility] AST, External 34 17 - 59 U/L [facility] ALT, External 44 21 - 72 U/L [facility] Specimen Narrative [facility] - 019 17:40 EDT Does PT Have a Latex Allergy? NO Performing Organization Address City/State/ZIP Code Phon e Number [facility] [address] [facility] [place] [address] [facility] documented in this encounter Visit Diagnoses Not on filedocumented in this encounter Care Teams Conversion Developer Relationship Specialty Start Date End Date Syed Leong MD PCP - General 04/08/09 0 documented as of this encounter
--- OUTSIDE RECORDS SUMMARY | 2022-05-22 15:24 | XMS_ITS | Encounter Summary ---
:1980 Author Organization [facility] Address [address] [place] [address] Care Team Providers Name Role Phone Syed Leong MD Primary Care Provider Unavailable Unknown, Provider Primary Care Provider Encounter Details Date Type Department Care Team Description 12/04/2019 Results Only Imaging [facility] - Uvaldo Leong, [facility] Radiology Resul ts [address] [place] [address] Social History Tobacco Use Types [...] 4-5 VIEWS (12/04/2019 8:22 EDT) Specimen Narrative [facility] - 12/04/2019 8:22 EDT ? [...] MD ? Transcribed Date/Time: 12/04/2019 (821) ? Bruise Trimmer: ? Printed Date/Time: 12/04/2019 (05 04) ? [...] Leong MD Transcribed Date/Time: 12/04/2019 (08 ) Bruise Trimmer: Printed Date/Time: 12/04/2019 (08) PAGE 1 Signed Report Performing Organization Address City/State/ZIP Code Phon e Number [facility] documented in this encounter Visit Diagnoses Not on filedocumented in this encounter Care Teams Starcher And Tenter Range Feeder Relationship Specialty Start Date End Date Syed Leong MD PCP - General 04/08/09 0 Unknown, Provider, PCP - General 11/24/20 documented as of this encounter
--- OUTSIDE RECORDS SUMMARY | 2022-05-22 15:24 | XMS_ITS | Clinical Summary ---
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 [...] 2 Lf Vaccine =>8yo IM 02/22/2020 Tdap (BOOSTRIX) Vaccine =>8YO IM 04/08/2009 Surgical History Surgery Date Site/Laterality Comments HERNIA REPAIR 1984 and 2018 Bilateral inguin al LAPAROSCOPIC APPENDECTOMY 05/27/2014 APPENDECTOMY CRANIOTOMY 04/11/2020 Left removal of acous tic neuroma [facility] Medical History Medical History Date Comments Hearing [...] Determinants Of Health (SDOH) 1980 COVID-19 Vaccine (#1) 05/30/1982 Behavioral Health Screen 1993 HIV Screening 1997 Advance Directive 11/28/1999 Preventive Care Visit 11/29/2014 11/29/2012 Influenza Immunization (Adult) (#1) 2022 Tetanus (Adult) Immunization 02/21/2030 02/22/2020, 009, 09/13/1992 Pertussis (Adult) Immunization Completed 04/08/2009 Hepatitis C Screen Completed 06/14/2018, 06/14/2018, 06/14/2018 Insurance Payer Benefit Plan Subscriber ID Effective Phone Address Typ e / Group Dates MEDICAID ACO MEDICAID ACO [id number] 2020-Pres [phone] [address] [place] [address] [facility] [id number] (Work) [id number] Flavio Hamm Personal/Family Self 1980 [address] [phone] [place] (Work) [address] Flavio Hamm Personal/Family Self 1980 [address] [phone] [place] [phone] Flavio Hamm Personal/Family Self 1980 [address] [phone] [place] ([place] [phone] Flavio Hamm Personal/Family Self 1980 [address] [phone] [place] ([place]) [address] Flavio Hamm Personal/Family Self 1980 [address] [phone] [place] ([place]) [phone] Flavio Hamm Personal/Family Self 1980 [address] [phone] [place] ([place]) [phone] Flavio Hamm Personal/Family Self 1980 [address] [phone] [place] (Work) [phone] Care Teams Pecan Gatherer Relationship Specialty Start Date End Date Unknown, Lucille, PCP - General 11/24/20
--- OUTSIDE RECORDS SUMMARY | 2022-05-22 15:24 | XMS_ITS | Encounter Summary ---
:1980 Author Organization [facility] Address [address] [place] [address] Care Team Providers Name Role Phone Syed Leong MD Primary Care Provider Unavailable Reason for Visit Reason Onset Date Comments Results 12/07/2019 Encounter Details Date Type Department Care Team Description 12/07/2019 Telephone [facility] Family Kirsty Montoya RN [facility] Medicine - [address] [address] Social History Tobacco Use Types Packs/Day Years [...] on filedocumented in this encounter Care Teams Boilerhouse Mechanic Relationship Specialty Start Date End Date Syed Leong MD PCP - General 04/08/09 0 documented as of this encounter
--- OUTSIDE RECORDS SUMMARY | 2022-05-22 15:24 | XMS_ITS | Encounter Summary ---
:1980 Author Organization [facility] Address [address] [place] [address] Care Team Providers Name Role Phone Syed Leong MD Primary Care Provider Unavailable Reason for Visit Reason Onset Date Comments Coordination Of Care 12/16/2019 Encounter Details Date Type Department Care Team Description 12/16/2019 Telephone [facility] Syed Leong, Coordination Of Care Medicine - Ye MORROW [address] [place] [address] [address] Social History Tobacco Use Types Packs/Day Years [...] EDT Faxed notes to Dr. Welsh at [facility]. Bear Willingham elephone Encounter - Syed Leong MD - 12/16/2019 0936 EDT Please send copies of the two visits at [facility] to Dr Christopher Welsh, [facility] Otolaryngology. I have book marked the scanned materials for easy finding. documented in this encounter Plan of Treatment Not on filedocumented as of this encounter Visit Diagnoses Not on filedocumented in this encounter Care Teams Stacker Tender Relationship Specialty Start Date End Date Syed Leong MD PCP - General 04/08/09 0 documented as of this encounter
--- OUTSIDE RECORDS SUMMARY | 2022-05-22 15:24 | XMS_ITS | Encounter Summary ---
:1980 Author Organization [facility] Address [address] [place] [address] Care Team Providers Name Role Phone Syed Leong MD Primary Care Provider Unavailable Reason for Visit Reason Comments Pre-op Exam Pre op appointment for vesti bular schwannoma at [facility] with Dr. Welsh on April 11. Encounter Details Date Type Department Care Team Description 03/22/2020 Office Visit [facility] Jennifer Petty Pre- op examination (Primary Dx); Family Medicine - J, FRONT END LOADER OPERATOR Left acoustic neuroma (HCC-CMS); [place] [address] Sensorineural hearing loss (SNHL) of lef t ear, unspecified hearing status on contralateral side [address] [facility] [address] [place] [phone] Social History Tobacco Use Types Packs/Day Years [...] from the original note were not included. [facility] Patient Instructions Learning About How to [...] living will and a durable power of health care attorney for health care. It lets your [...] Where can you learn more? Go to [email or web address] or log into your Fitzeal account at [email or web address] Enter Q270 in the search box to learn more about Learning About How to Prepare for Surgery. Current as of: May 03, 2019Content Version: 12.4 ?? [employer]. Care instructions adapted under license by [facility]. If you have questions about a medical condition or this instruction, always ask your healthcare professional. [employer] disclaims any warranty or liability for your use of this information. documented in this encounter Progress Notes Jennifer Petty, OUTPATIENT RECEPTIONIST - 03/22/2020 3385 EDT Preoperative H&P Patient ID: Flavio Hamm is an 39 y.o. male. :1980 Date of Service: 03/22/2020 Chief Complaint: Chief Complaint Patient presents with ??? Pre-op Exam Pre op appointment for vestibular schwannoma at [facility] with Dr. Welsh on April 11. Planned [...] prior to removal of vestibular schwannoma at [facility] with Dr. Jacobs of neurosurgery/Dr. Shelby of ENT 04/11/2020. He Has been seen by ENT, neurology, neurosurgery at [facility]. He does experience regular tinnitus, headaches, fatigue [...] headache ??? Chronic fatigue ??? Dizziness ??? 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
--- OUTSIDE RECORDS SUMMARY | 2022-05-22 15:24 | XMS_ITS | Encounter Summary ---
:1980 Author Organization [facility] Address [address] [place] [address] Care Team Providers Name Role Phone Unavailable Primary Care Provider Unavailable Reason for Visit Reason Onset Date Comments Release of Information 04/10/2020 Encounter Details Date Type Department Care Team Description 04/10/2020 Telephone [facility] Syed Leong, Trevon ase of Information Family Medicine - Dilshad pagan MD [address] [place] [phone] Social History Tobacco Use Types Packs/Day Years [...] Notes Telephone Encounter - Bear Willingham - 04/10/2020 1058 EDT Received CURTIS from [facility] in [facility] as the patient is transferring to a new provider. Bear Willingham documented in this encounter Plan of Treatment Not on filedocumented as of this encounter Visit Diagnoses Not on filedocumented in this encounter
--- OUTSIDE RECORDS SUMMARY | 2022-05-22 15:24 | XMS_ITS | Encounter Summary ---
:1980 Author Organization [facility] Address [address] [place] [address] Care Team Providers Name Role Phone Syed Leong MD Primary Care Provider Unavailable Unknown, Provider Primary Care Provider Encounter Details Date Type Department Care Team Description 11/02/2019 Results Only Imaging [facility] - Uvaldo Leong, [facility] Radiology Resul ts [address] [place] [address] Social History Tobacco Use Types [...] WO CONTRAST (11/02/2019 12:02 EST) Specimen Narrative [facility] - 11/02/2019 12:02 EST ? [...] MD ? Transcribed Date/Time: 11/02/2019 (1202) ? Retail Training Manager: ? Printed Date/Time: 11/02/2019 (12 02) ? PAGE 2 ? Adriana d Report ? Procedure Note Zane Hodgson MD - 11/02/2019 EXAM: MAGNETIC RESONANCE IMAGING/CRANE HOIST OR LIFT OPERATOR AL EX. D/ (1124) CLINICAL INFORMATION: H91.8X2 [...] Leong MD Transcribed Date/Time: 11/02/2019 (1202 ) Retail Training Manager: Printed Date/Time: 11/02/2019 (1202) PAGE 2 Signed Report Performing Organization Address City/State/ZIP Code Phon e Number [facility] documented in this encounter Visit Diagnoses Not on filedocumented in this encounter Care Teams It Help Desk Associate Relationship Specialty Start Date End Date Syed Leong MD PCP - General 04/08/09 0 Unknown, ProviderMD PCP - General 11/24/20 documented as of this encounter
--- OUTSIDE RECORDS SUMMARY | 2022-05-22 15:24 | XMS_ITS | Encounter Summary ---
:1980 Author Organization [facility] Address [address] [place] [address] Care Team Providers Name Role Phone Syed Leong MD Primary Care Provider Unavailable Encounter Details Date Type Department Care Team Description 03/30/2019 Historical Results Only [facility] - Syde Leong [facility] Radiology Resul rosie Hassan MD [address] [place] [address] Social History Tobacco Use Types [...] VIEWS (03/30/2019 11:19 EDT) Specimen Narrative [facility] - 03/30/2019 11:23 EDT ? [...] B y: Flavio Capone MD ? CC: ySed Leong MD ? Transcribed Date/Time: 03/30/2019 (1123) ? Home Health Care Physician: ? Printed Date/Time: 06/01/2019 (03 18) ? [...] Leong MD Transcribed Date/Time: 03/30/2019 (1123 ) Home Health Care Physician: Printed Date/Time: 06/01/2019 (7850) PAGE 1 Signed Report Performing Organization Address City/State/ZIP Code Phon e Number [facility] documented in this encounter Visit Diagnoses Not on filedocumented in this encounter Care Teams Cutch Cleaner Relationship Specialty Start Date End Date Syed Leong MD PCP - General 04/08/09 0 documented as of this encounter
--- OUTSIDE RECORDS SUMMARY | 2022-05-22 15:24 | XMS_ITS | Encounter Summary ---
:1980 Author Organization [facility] Address [address] [place] [address] Care Team Providers Name Role Phone Syed Leong MD Primary Care Provider Unavailable Reason for Visit Reason Comments Other Encounter Details Date Type Department Care Team Description 04/15/2019 Refill [facility] Family Medicine Staff[address]ed [address], [place] [address] Social History Tobacco Use Types Packs/Day Years [...] Date Scheduled with Care Team: No. 03/20/19 [facility] JASPAL CERDA RN 04/17/2019 11:31 documented in this encounter Plan of Treatment Not on filedocumented as of this encounter Visit Diagnoses Not on filedocumented in this encounter Discontinued Medications Medication Sig Discontinue Reason Start Date End Date omeprazole (PRILOSEC) 40 TAKE 1 CAPSULE BY Reorder 04/11/2018 04/15/2019 mg capsule MOUTH EVERY DAY documented as of this encounter Care Teams Analytical Clerk Relationship Specialty Start Date End Date Syed Leong MD PCP - General 04/08/09 0 documented as of this encounter
--- OUTSIDE RECORDS SUMMARY | 2022-05-22 15:24 | XMS_ITS | Encounter Summary ---
:[address] [facility] Address [address] [place] [address] Care Team Providers Name Role Phone Unknown, Provider Primary Care Provider Reason for Visit Reason Comments Other Encounter Details Date Type Department Care Team Description 04/28/2021 Refill [facility] Family Medicine Staffo mendoza, Syed Hassan MD [facility] - [address] [address] Social History Tobacco Use Types Packs/Day Years [...] on filedocumented in this encounter Care Teams Nuclear Physician Relationship Specialty Start Date End Date Unknown, Provider, PCP - General 11/24/20 documented as of this encounter
--- OUTSIDE RECORDS SUMMARY | 2022-05-22 15:24 | XMS_ITS | Encounter Summary ---
:1980 Author Organization [facility] Address [address] [place] [address] Care Team Providers Name Role Phone Syed Leong MD Primary Care Provider Unavailable Reason for Referral Consult (Routine) - Specialty Report Received Specialty Diagnoses / Procedures Referred By Contact Refer red To Contact Diagnoses Acoustic neuritis, left Left-sided tinnitus Sensorineural hearing loss (SNHL) of left ear, unspecified hearing status on contralateral side Syed Leong MD [address] [place] [address] [address] Referral ID Status Reason Start Expiration Visits Visits Date Date Requested Authorized [id number] Specialty Specialty 11/06/2019 1 1 Report Services Received Required Question Answer Reason for Request: left acoustic neuroma. loss of hearing, dizziness Scheduling Comments (optional ? NAKIA describe specific scheduling needs if applicable): Practice Site (External Referral Only): [facility] Comments Asymmetric hearing loss, dizziness, tinn itus and acoustic neuroma seen on recent MRI. Reason for Visit Reason Onset Date Comments Results 11/06/2019 Encounter Details Date Type Department Care Team Description 11/06/2019 Telephone [facility] Syed Leong MD Results [facility] - [address] [id number] Social History Tobacco Use Types Packs/Day Years [...] that they are keeping the appointment in [place], they really wanted to go to [facility] but they can not get ahold of their office to schedule an appointment. elephone Encounter - Beverly Greco - 11/09/2019 1222 EST Per [facility] there is an encounter open that says [...] when they decided to go to [facility]. Telephone Encounter - Lenny Son - 11/07/2019 1544 EST Mary Lou/[facility] calling in stating they tried to give the pt a 01/08/20 appointment but the declined. elephone Encounter - Bere Maynard - 11/07/2019 0937 EST I have sent the visit notes to [facility] ENT and I have called [facility] File room and Nimesh is going to push images to them as well. elephone Encounter - Syed Leong MD - 11/06/2019 1735 EST Cancel the [facility] referral and doing [facility] referral. Also reassured her that an acoustic neuroma would not be giving back pain joint pains fatigue. It could be giving headaches. He has been seeing a natural path and being diagnosed with tickborne diseases and other things without positive tests. I strongly suggested an appointment here to investigate things further. PSS--please have [facility] radiology send images of the recent MRI to [facility] Telephone Encounter - Iesha Borden RN - [...] says they are more comfortable with [facility]. Have had family members in that hospital. Advised that Dr Melgoza mentioned that the referral should go to a specific MD. So if that's the better place to go and if the timing for the appt works better they will go with [facility] if not would like it to go to [facility] elephone Encounter - Beverly Greco - 11/06/2019 0805 EST calling because it too sick to call. Head hurting. He would like to know if he could see someone at [facility] instead of [facility]? She also wanted to talk to [...] side documented in this encounter Care Teams Manufacturing Advisor Relationship Specialty Start Date End Date Syed Leong MD PCP - General 04/08/09 0 documented as of this encounter
--- OUTSIDE RECORDS SUMMARY | 2022-05-22 15:24 | XMS_ITS | Encounter Summary ---
:1980 Author Organization [facility] Address [address] [place] [address] Care Team Providers Name Role Phone Unknown, Provider Primary Care Provider Encounter Details Date Type Department Care Team Description 02/19/2021 Lab Requisition [facility] Outr Resulting Lab, Pathology & Laboratory Provider [facility] [address] [place], [place] [address] Social History Tobacco Use Types Packs/Day Years [...] Sig nature Lyme Ab NegativeComment: New Negative [facility] 3rd generation assay LABORATORY SERVICES in use 02/21/2020 Specimen Blood - Venous blood (substance) Performing Organization Address City/State/ZIP Code Phon e Number [facility] [address] [place] [address] SERVICES documented in this encounter Visit Diagnoses Not on filedocumented in this encounter Care Teams Senior Insight Manager Relationship Specialty Start Date End Date Unknown, Provider, PCP - General 11/24/20 documented as of this encounter
--- OUTSIDE RECORDS SUMMARY | 2022-05-22 15:24 | XMS_ITS | Encounter Summary ---
:1980 Author Organization [facility] Address [address] [place] [address] Care Team Providers Name Role Phone Syed Leong MD Primary Care Provider Unavailable Reason for Referral PT/OT/ST (Routine) - Closed Specialty Diagnoses / Procedures Referred By Contact Refer red To Contact Rehab Therapies Diagnoses Acute pain of right shoulder Monserrat Cooper, ACTIVITIES ASSISTANT [facility] [address] [facility] [address] [place] [address] [address] [place] [address] Referral ID Status Reason Start Date Expiration Date Visits V isits Requested Authorized [id number] Closed Specialty 02/27/2020 1 1 Services Required Question Answer Reason for Request: RTC injury Reason for Visit Reason Comments Pain Consult (3 - 10 Business Days) - Specialty Report Received Specialty Diagnoses / Procedures Referred By Contact Refer red To Contact Diagnoses Acute pain of right shoulder Nitish Lopez NP [address] [facility] [address] [place] [address] Referral ID Status Reason Start Expiration Visits Visits Date Date Requested Authorized [id number] Specialty Specialty 02/22/2020 1 1 Report Services Received Required Encounter Details Date Type Department Care Team Description 02/27/2020 Office Visit [facility] - Monserrat Cooper A cute pain of right shoulder (Primary Dx); [facility] Orthopedics & ACTIVITIES ASSISTANT Rotator cuff syndrome of right shoulder Sport Medicine [address], Bharath Ho [address] [place] [address] [place] [address] [phone] (Wo rk) Social History Tobacco Use Types [...] have surgery on his acoustic neuroma at [facility] at the end of March. He [...] PANEL (BMP) (02/27/2020 15:14 EDT) BUN - [facility] 29 (H) 10 - 26 mg/dL [facility] CALCIUM - [facility] 9.8 8.5 - 10.5 [facility] mg/dL [facility] Chloride 102 96 - 110 [facility] mmol/L [facility] CO2 Total 28 21 - 32 mEq/L [facility] CREATININE 0.97 0.66 - 1.25 [facility] mg/dL [facility] eGFR >60 [facility] Comment: [facility] CENTER LAB Chronic renal impairment is defined as GFR <60 Multiply result by 1.210 for patients . Anion Gap 10 0 - 18 [facility] GLUCOSE - [facility] 90 70 - 100 mg/dL [facility] Potassium 4.3 3.5 - 5.0 [facility] mEq/L [facility] Sodium 140 136 - 145 [facility] mEq/L [facility] Specimen Performing Organization Address City/State/ZIP Code Phon e Number [facility] [address] [place] [address] [place] ARTHROCENTESIS ASPIR&/INJ MAJOR JT/BURSA W/O US (02/27/2020 14:00 EDT) Narrative POINT OF CARE [facility] - 02/27/2020 14:00 E Monserrat Nazario, SOM ? 02/29/2020 11:00 Large Joint Injection/Arthrocentesis: R subacromial bursa on 02/27/2020 17:47 Medications: 4 mL lidocaine (PF) 10 mg/m L (1 %); 80 mg methylPREDNISolone ACETATE 80 mg/mL Performing Organization Address City/[facility]/ZIP Code Phon e Number [facility] POINT OF CARE POINT [facility] CARE [facility] documented in this encounter Visit Diagnoses [...] Routine documented in this encounter Care Teams Scrap Charger Relationship Specialty Start Date End Date Syed Leong MD PCP - General 04/08/09 0 documented as of this encounter
--- OUTSIDE RECORDS SUMMARY | 2022-05-22 15:24 | XMS_ITS | Encounter Summary ---
:1980 Author Organization [facility] Address [address] [place] [address] Care Team Providers Name Role Phone Syed Leong MD Primary Care Provider Unavailable Encounter Details Date Type Department Care Team Description 03/20/2019 Historical Results Only [facility] - Syed Leong [facility] Lab - Main [place] us Sonya MD [address] [place] [address] Social History Tobacco Use Types [...] Sig nature C-Reactive Protein <5.0 <10.0 mg/L [facility] NTER LAB Specimen Narrative [facility] - 019 17:39 EDT Does PT Have a Latex Allergy? NO Performing Organization Address City/State/ZIP Code Phon e Number [facility] [address] LAB COMPREHENSIVE METABOLIC PANEL (CMP) (03/20/2019 17:00 EDT) ALBUMIN - [facility] 4.7 3.4 - 4.9 [facility] g/dL [facility] ALKALINE 51 38 - 126 U/L [facility] PHOSPHATASE - [facility] BILIRUBIN TOTAL 0.3 0.2 - 1.3 [facility] mg/dL [facility] BUN - [facility] 21 10 - 26 mg/dL [facility] CALCIUM - [facility] 10.1 8.5 - 10.5 [facility] mg/dL [facility] Chloride 101 96 - 110 [facility] mmol/L [facility] CO2 Total 29 21 - 32 mEq/L [facility] CREATININE 1.01 0.66 - 1.25 [facility] mg/dL [facility] eGFR >60 [facility] Comment: [facility] Chronic renal impairment is defined as GFR <60 Multiply result by 1.210 for patients . Anion Gap 8 0 - 18 [facility] GLUCOSE - [facility] 93 70 - 100 [facility] mg/dL [facility] Potassium 4.5 3.5 - 5.0 [facility] mEq/L [facility] Sodium 138 136 - 145 [facility] mEq/L [facility] TOTAL PROTEIN - 7.3 6.2 - 8.2 [facility] gm/dL [facility] SGOT/AST - [facility] 34 17 - 59 U/L [facility] SGPT/ALT - [facility] 44 21 - 72 U/L [facility] Specimen Narrative [facility] - 019 17:39 EDT Does PT Have a Latex Allergy? NO Performing Organization Address City/[facility]/ZIP Code Phon e Number [facility] [address] LAB LYME AB (03/20/2019 17:00 EDT) Pathologist Sig nature Lyme Ab IgG NEGATIVE [facility] L AB Lyme Ab NEGATIVE [facility] L AB Specimen Narrative [facility] - 019 22:01 EDT Does PT Have a Latex Allergy? NO Performing Organization Address City/State/ZIP Code Phon e Number [facility] [address] LAB (ABNORMAL) COMPLETE BLOOD COUNT WITH DIFFERENTIAL (AUTO) (03/20/2019 17:00 EDT) Pathologist Sig nature ABSOLUTE NEUTROPHIL 3.6 2.2 - 8.85 [facility] COUN - [facility] 10e3/uL CENTER LAB BASO # - [facility] 0.05 0.01 - 0.11 [facility] 10e/uL [place] BASO % - [facility] 1 0 - 2 % [facility] EOS # - [facility] 0.23 0.03 - 0.61 [facility] 10e3/ul [place] [facility] EOS % - [facility] 3 0 - 5 % [facility] GRAN % - [facility] 48.3 40 - 80 % [facility] HEMATOCRIT - [facility] 41.0 39.5 - 50.2 % [facility] HEMOGLOBIN - [facility] 14.2 13.8 - 17.3 [facility] g/dl [place] [facility] IG# - [facility] 0.01 0 - 0.7 10e3/uL [facility] IG% - [facility] 0.1 0 - 0.9 % [facility] LYMPH # - [facility] 3.1 1.09 - 3.3 [facility] 10e3/ul [place] [facility] LYMPH% - [facility] 41.6 (H) 20 - 40 % [facility] MEAN CORPUSCULAR HGB 31.1 27.6 - 33.0 pg [facility] ME D - [facility] CENTER LAB MEAN CORPUSCULAR HGB 34.6 32.8 - 36.4 [facility] CONC - [facility] g/dL CENTER LAB MEAN CELL VOLUME - 89.9 81 - 95 fl [facility] CENTER LAB MONO # - [facility] 0.5 0.1 - 0.8 [facility] 10e3/uL [place] [facility] MONO% - [facility] 6.2 0 - 12 % [facility] PLATELET COUNT 206 141 - 377 [facility] 10e3/ul [place] [facility] RED BLOOD COUNT - 4.56 4.36 - 5.78 [facility] 10e3/ul CENTER LAB RED CELL DISTRI WIDTH 11.9 <14.2 % [facility] - [facility] CENTER LAB WHITE BLOOD COUNT - 7.5 4.0 - 10.4 [facility] 10e3/ul CENTER LAB Specimen Narrative [facility] - 019 18:09 EDT Does PT Have a Latex Allergy? NO Performing Organization Address City/State/ZIP Code Phon e Number [facility] [address] LAB documented in this encounter Visit Diagnoses Not on filedocumented in this encounter Care Teams Athlete Marketing Agent Relationship Specialty Start Date End Date Syed Leong MD PCP - General 04/08/09 0 documented as of this encounter
--- OUTSIDE RECORDS SUMMARY | 2022-05-22 15:24 | XMS_ITS | Encounter Summary ---
:[address] [facility] Address [address] [place] [address] Care Team Providers Name Role Phone Syed Leong MD Primary Care Provider Unavailable Reason for Visit Reason Onset Date Comments Patient Outreach 01/23/2020 Encounter Details Date Type Department Care Team Description 01/23/2020 Telephone [facility] Syed Leong MD Patient Outreach Medicine - [address] [address] Social History Tobacco Use Types Packs/Day Years [...] this encounter Miscellaneous Notes Telephone Encounter - Iesah Borden RN - 01/23/2020 8976 EDT Pt's notified. elephone Encounter - Syed Leong MD - 01/23/2020 1651 EDT There is no real hard rule as to when to do this. Maybe split the difference and do it in one week. I think 3 days is too soon. Next Wednesday would be fine. elephone Encounter - Kirsty Montoya RN - 01/23/2020 1618 EDT Patient notified and will take his first dose today. He states I thought the doctor told me to get my blood tested 3 days after starting the medication. elephone Encounter - Syed Leong MD - 01/23/[address] Whitley arranged with me to order and monitor lab tests after starting the medication. He should go to lab to get a blood test 2 weeks after starting the drug and then I will communicate the results and the timing for the next blood test. Lab is ordered as standing order. (to check potassium and kidney function) elephone Encounter - Anderson Person - 01/23/2020 1534 EDT Pt's calling because pt received the RX Eplerenone from Dr Conley; and wants to discuss with Syed Leong MD on how to proceed with taking RX and if lab draws are needed documented in this encounter Plan of Treatment Not on filedocumented as of this encounter Visit Diagnoses Diagnosis High risk medication use - Primary Encounter for long-term (current) use of other medications TELECOMMUNICATIONS OFFICER (central serous retinopathy), left documented in this encounter Care Teams Depot Manager Relationship Specialty Start Date End Date Syed Leong MD PCP - General 7/27/09 7/28/2 0 documented as of this encounter
--- OUTSIDE RECORDS SUMMARY | 2022-05-22 15:24 | XMS_ITS | Encounter Summary ---
:1980 Author Organization [facility] Address [address] [place] [address] Care Team Providers Name Role Phone Unknown, [...] on filedocumented in this encounter Care Teams Manual Qa Tester Relationship Specialty Start Date End Date Unknown, Provider, PCP - General 11/24/20 documented as of this encounter
--- OUTSIDE RECORDS SUMMARY | 2022-05-22 15:24 | XMS_ITS | Encounter Summary ---
:1980 Author Organization [facility] Address [address] [place] [address] Care Team Providers Name Role Phone Syed Leong MD Primary Care Provider Unavailable Encounter Details Date Type Department Care Team Description 02/15/2020 Results Only [facility] Family Syed Leong MD [address] [address] Social History Tobacco Use Types [...] PANEL (BMP) (02/15/2020 13:44 EDT) BUN - [facility] 26 10 - 26 mg/dL [facility] CALCIUM - [facility] 9.5 8.5 - 10.5 [facility] mg/dL [facility] Chloride 102 96 - 110 [facility] mmol/L [facility] CO2 Total 26 21 - 32 mEq/L [facility] CREATININE 0.93 0.66 - 1.25 [facility] mg/dL [facility] eGFR >60 [facility] Comment: [facility] Chronic renal impairment is defined as GFR <60 Multiply result by 1.210 for patients . Anion Gap 12 0 - 18 [facility] GLUCOSE - [facility] 79 70 - 100 mg/dL [facility] Potassium 4.3 3.5 - 5.0 [facility] mEq/L [facility] Sodium 140 136 - 145 [facility] mEq/L [facility] Specimen Narrative [facility] - 020 15:24 EDT Does PT Have a Latex Allergy? NO Performing Organization Address City/State/ZIP Code Phon e Number [facility] [address] [place], [place] [address] [place] [address] LAB documented in this encounter Visit Diagnoses Not on filedocumented in this encounter Care Teams Boardinghouse Keeper Relationship Specialty Start Date End Date Syed Leong MD PCP - General 04/08/09 0 documented as of this encounter
--- OUTSIDE RECORDS SUMMARY | 2022-05-22 15:24 | XMS_ITS | Encounter Summary ---
:1980 Author Organization [facility] Address [address] [place] [address] Care Team Providers Name Role Phone Syed Leong MD Primary Care Provider Unavailable Reason for Visit Reason Onset Date Comments Appointment Related 01/16/2020 Encounter Details Date Type Department Care Team Description 01/16/2020 Telephone [facility] Family Syed Leong, Appointment Related Medicine - Ye MORROW [address] [place] [address] [address] Social History Tobacco Use Types Packs/Day Years [...] or Wednesday. I am hoping to network operations center technician Telephone Encounter - Lenny Son - 01/16/2020 1359 EDT Pts is calling in stating that the pt is scheduled to have an MRI of his spine at [facility] on 01/19/20 @ 7:50am. The office is stating that the pt needs to have a physical in the past 30 days or they will need to reschedule the appointment. Stated I would need to see if we can get him in for an appointment before then. Will call her back. Spoke to Sheri/[facility] [phone], she confirmed this is correct. If we can, please fax#[phone] the latest would be the night before. Please advise if the pt can come in the office 01/18/20 @ 3:30. documented in this encounter Plan of Treatment Not on filedocumented as of this encounter Visit Diagnoses Not on filedocumented in this encounter Care Teams Classifying Machine Operator Relationship Specialty Start Date End Date Syed Leong MD PCP - General 04/08/09 0 documented as of this encounter
--- OUTSIDE RECORDS SUMMARY | 2022-05-22 15:24 | XMS_ITS | Encounter Summary ---
:1980 Author Organization [facility] Address [address] [place] [address] Care Team Providers Name Role Phone Syed Leong MD Primary Care Provider Unavailable Reason for Referral Referral (Routine) - Closed Specialty Diagnoses / Procedures Referred By Contact Refer red To Contact Diagnoses Dizziness and giddiness Jhony Chacon MD [address] [place] [address] [address] [place] [address] Referral ID Status Reason Start Date Expiration Date Visits V isits Requested Authorized [id number] Closed Specialty 11/16/2019 1 1 Services Required Question Answer Reason for Referral: Other Please specify: VHIT Reason for Visit Reason Comments Other ? 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 Reports left sided hearing loss with gkuie-uaz-szuvm tinnitus but finds that white noise is [...] level: Not on file Occupational History Employer: [employer] Social Needs ??? Financial resource strain: Not [...] file Gets together: Not on file Attends buddhist service: Not on file Active member of [...] orders for this visit: Vestibular schwannoma ([facility]) - MR HEAD W WO CONTRAST; Future [...] encounter Visit Diagnoses Diagnosis Vestibular schwannoma ([facility]) ([facility]) - Primary Benign neoplasm of cranial nerves Chronic nonintractable headache, unspeci fied headache type Subjective tinnitus of left ear Chronic fatigue Other malaise and fatigue Dizziness and giddiness documented in this encounter Care Teams Tempering Machine Operator Relationship Specialty Start Date End Date Syed Leong MD PCP - General 04/08/09 0 documented as of this encounter
--- OUTSIDE RECORDS SUMMARY | 2022-05-22 15:24 | XMS_ITS | Encounter Summary ---
:1980 Author Organization [facility] Address [address] [place] [address] Care Team Providers Name Role Phone Syed Leong MD Primary Care Provider Unavailable Reason for Referral Radiology Services (Routine/Next Available) - Specialty Report Received Specialty Diagnoses / Procedures Referred By Contact Refer red To Contact Diagnoses Fatigue, unspecified type Myalgia Arthralgia, unspecified joint Syed Leong MD Procedures CHEST PA AND LATERAL [address] [facility] [address] [address] Referral ID Status Reason Start Date Expiration Date Visits V isits Requested Authorized [id number] Specialty 03/27/2019 1 1 Report Received Reason for Visit Reason Onset Date Comments Results 03/27/2019 Encounter Details Date Type Department Care Team Description 03/27/2019 Telephone [facility] Syed Leong MD Results Medicine - [place] [address] [place] [address] Social History Tobacco Use Types Packs/Day Years Used Date Former Smoker Cigarettes 10 Quit: 03/25/20 09 Smokeless Tobacco: Never Used Alcohol Use Standard Drinks/Week Comments No 0 (1 standard drink = 0.6 oz pure alcoho l) occ Sex Assigned at Date Recorded Male 03/11/2020 9:13 EDT documented as of this encounter Miscellaneous Notes Telephone Encounter - Syed Leong MD - 03/27/2019 1032 EDT Patient was seen a week ago [...] joint documented in this encounter Care Teams Trains Dispatcher Supervisor Relationship Specialty Start Date End Date Syed Leong MD PCP - General 04/08/09 0 documented as of this encounter
--- OUTSIDE RECORDS SUMMARY | 2022-05-22 15:24 | XMS_ITS | Encounter Summary ---
:1980 Author Organization [facility] Address [address] [place] [address] Care Team Providers Name Role Phone Syed [...] on filedocumented in this encounter Care Teams Associate Juvenile Court Judge Relationship Specialty Start Date End Date Syed Leong MD PCP - General 04/08/09 0 documented as of this encounter
--- OUTSIDE RECORDS SUMMARY | 2022-05-22 15:24 | XMS_ITS | Encounter Summary ---
:1980 Author Organization [facility] Address [address] [place] [address] Care Team Providers Name Role Phone Syed [...] on filedocumented in this encounter Care Teams Training Administrator Relationship Specialty Start Date End Date Syed Leong MD PCP - General 04/08/09 0 documented as of this encounter
--- OUTSIDE RECORDS SUMMARY | 2022-05-22 15:24 | XMS_ITS | Encounter Summary ---
:1980 Author Organization [facility] Address [address] [place] [address] Care Team Providers Name Role Phone Syed Leong MD Primary Care Provider Unavailable Reason for Visit (Routine) - Receiving Office to Obtain Authorization Specialty Diagnoses / Procedures Referred By Contact Refer red To Contact Procedures Unknown, Provider, MR OUTSIDE IMAGES NEURO Phone: Referral ID Status Reason Start Expiration Visits Visits Date Date Requested Authorized [id number] Receiving Office 11/03/2019 1 1 to Obtain Authorization Encounter Details Date Type Department Care Team Description 11/02/2019 Hospital Encounter [facility] Radiology - Main [place] [address] [place] [address] Social History Tobacco Use Types Packs/Day Years [...] is a non-reportable exam. Performing Organization Address City/State/[facility] Code Phon e Number JENNIE documented in this encounter Visit Diagnoses Not on filedocumented in this encounter Care Teams Office Cleaner Relationship Specialty Start Date End Date Syed Leong MD PCP - General 04/08/09 0 documented as of this encounter
--- OUTSIDE RECORDS SUMMARY | 2022-05-22 15:24 | XMS_ITS | Encounter Summary ---
:1980 Author Organization [facility] Address [address] [place] [address] Care Team Providers Name Role Phone Syed Leong MD Primary Care Provider Unavailable Reason for Visit Reason Comments Hearing Loss Tinnitus Referral (Routine/Next Available) - Specialty Report Received Specialty Diagnoses / Procedures Referred By Contact Refer red To Contact Otolaryngology Diagnoses Asymmetrical hearing loss of left ear Syed Leong MD Kelley, Kairn S, AuD [address] [facility] [address] [place] [address] [address] [place] [address] Phone: Fax: Referral ID Status Reason Start Expiration Visits Visits Date Date Requested Authorized [id number] Specialty Specialty 03/20/2019 1 1 Report Services Received Required Encounter Details Date Type Department Care Team Description 04/21/2019 Office Visit [facility] Lico Gregg, 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 [address] [facility] loss of [place] [address] [address] restricted hearing of [phone] [place], [place] right ear ([place]) [address] Social History Tobacco Use Types Packs/Day Years Used Date Former Smoker Cigarettes 10 Quit: 03/25/20 09 Smokeless Tobacco: Never Used Alcohol Use Standard Drinks/Week Comments No 0 (1 standard drink = 0.6 oz pure alcoho l) occ Sex Assigned at Date Recorded Male 03/11/2020 9:13 EDT documented as of this encounter Progress Notes [facility] [place] S - 04/21/2019 1100 EDT Subjective: [...] Air Conduction, BC= Bone Conduction Frequency 250 920 544 8732 1500 2000 3000 4000 6000 8000 UnmaskedBC 0 5 25 30 40 Right AC 15 5 10 15 20 30 30 15 10 Right BC Left AC 25 20 40 45 40 65 65 65 45 Left BC 15 25 35 80 Mr. Hamm???s speech reception specialist threshold (SRT) was 10 dB HL in [...] loss seems to be sensorineural. His speech reception specialist threshold is unchanged. Thresholds for tones presented [...] Primary documented in this encounter Care Teams Ballistic Technician Relationship Specialty Start Date End Date Syed Leong MD PCP - General 04/08/09 0 documented as of this encounter
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
--- OUTSIDE RECORDS SUMMARY | 2022-05-22 15:24 | XMS_ITS | Encounter Summary ---
:1980 Author Organization [facility] Address [address] [place] [address] Care Team Providers Name Role Phone Syed Leong MD Primary Care Provider Unavailable Reason for Visit Reason Onset Date Comments Medication Problem 01/15/2020 Encounter Details Date Type Department Care Team Description 01/15/2020 Telephone [facility] Family Syed Leong, Medication Problem Medicine - Ye MORROW [address] [place] [address] [address] Social History Tobacco Use Types Packs/Day Years [...] see that they gave him diazepam. Whether [facility] anesth will want to avoid it based [...] planning to give him po Ativan at [facility] elephone Encounter - Anderson Person - 01/15/2020 1036 EDT Pt's calling because pt has an MRI scheduled @ [facility] on Wednesday and wants to discuss any medications and reactions/allergies pt has documented in this encounter Plan of Treatment Not on filedocumented as of this encounter Visit Diagnoses Not on filedocumented in this encounter Care Teams Cra Relationship Specialty Start Date End Date Syed Leong MD PCP - General 04/08/09 0 documented as of this encounter
--- OUTSIDE RECORDS SUMMARY | 2022-05-22 15:24 | XMS_ITS | Encounter Summary ---
:1980 Author Organization [facility] Address [address] [place] [address] Care Team Providers Name Role Phone Syed Leong MD Primary Care Provider Unavailable Reason for Visit Reason Comments Pre-op Exam Pt is here for a pre op for a MRI under anesthesia. Encounter Details Date Type Department Care Team Description 01/17/2020 Office Visit [facility] Jennifer Petty Pre- op examination (Primary Dx); Family Medicine - J, WIND TURBINE TECHNICIAN Left acoustic neuroma (HCC-CMS) Julian [address] [facility] [address] [facility] [address] [place] [id number] Social History Tobacco Use Types Packs/Day [...] Planned Procedure: MRI under anesthesia Surgeon: N/A, [facility] anesthesiology Planned Procedure Date: 01/19/2020 Problem List Available or Initiated: yes Subjective: HISTORY OF PRESENT ILLNESS: 39-year-old male seen today for a preop examination to get an MRI done under anesthesia. Patient will getting an MRI of his spine completed at [facility] on 01/19/2020 at 7:50 AM. Patient does [...] headache ??? Chronic fatigue ??? Dizziness ??? 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 Pre-op examination 2. Left acoustic neuroma ([facility]) No contraindications to planned surgery Plan: Proceed with surgery as planned. No food or liquids the morning of surgery. Call surgeon if develops respiratory illness, fever, or other illness. Jennifer Petty APRN 01/17/2020 9:33 If MD is billing provider, the WIND TURBINE TECHNICIAN or PA must attest: Dr. Dasilva was the attending physician available in the clinic today if needed. A consultation was not required. documented in this encounter Plan of Treatment Not on filedocumented as of this encounter Visit Diagnoses Diagnosis Pre-op examination - Primary Preoperative examination, unspecified Left acoustic neuroma (HCC-CMS) (HCC) Benign neoplasm of cranial nerves documented in this encounter Care Teams Pension Adviser Relationship Specialty Start Date End Date Syed Leong MD PCP - General 04/08/09 0 documented as of this encounter
--- OUTSIDE RECORDS SUMMARY | 2022-05-22 15:24 | XMS_ITS | Encounter Summary ---
:1980 Author Organization [facility] Address [address] [place] [address] Care Team Providers Name Role Phone Syed Leong MD Primary Care Provider Unavailable Encounter Details Date Type Department Care Team Description 04/06/2020 Orders Only [facility] Family Syed Leong MD [address] [address] Social History Tobacco Use Types [...] bedtime. added in this encounter Care Teams Sales Strategy Manager Relationship Specialty Start Date End Date Syed Leong MD PCP - General 04/08/09 0 documented as of this encounter
--- OUTSIDE RECORDS SUMMARY | 2022-05-22 15:24 | XMS_ITS | Encounter Summary ---
:1980 Author Organization [facility] Address [address] [place] [address] Care Team Providers Name Role Phone Syed Leong MD Primary Care Provider Unavailable Reason for Referral Laboratory Services (Routine/Next Available) - New Request Specialty Diagnoses / Procedures Referred By Contact Refer red To Contact Diagnoses Chronic Syed Watson MD Procedures ANTI NUCLEAR AB (FABIOLA), IFA [address] [facility] [address] [address] Referral ID Status Reason Start Date Expiration Date Visits V isits Requested Authorized [id number] New Request 11/30/2019 1 1 aboratory Services (Routine) - New Request Specialty Diagnoses / Procedures Referred By Contact Refer red To Contact Diagnoses Syed Piper MD Procedures THYROID CASCADE [address] [facility] [address] [place] [address] Referral ID Status Reason Start Date Expiration Date Visits V isits Requested Authorized [id number] New Request 11/30/2019 1 1 aboratory Services (Routine) - New Request Specialty Diagnoses / Procedures Referred By Contact Refer red To Contact Diagnoses Syed Piper MD Procedures C REACTIVE PROTEIN [address] [facility] [address] [place] [address] Referral ID Status Reason Start Date Expiration Date Visits V isits Requested Authorized [id number] New Request 11/30/2019 1 1 aboratory Services (Routine) - New Request Specialty Diagnoses / Procedures Referred By Contact Refer red To Contact Diagnoses Chronic fatigue Syed Leong MD Procedures COMPLETE BLOOD COUNT AND DIFFERENTIAL [address] [facility] [address] [place] [address] Referral ID Status Reason Start Date Expiration Date Visits V isits Requested Authorized [id number] New Request 11/30/2019 1 1 aboratory Services (Routine) - New Request Specialty Diagnoses / Procedures Referred By Contact Refer red To Contact Diagnoses Chronic fatigue Syed Leong MD Procedures COMPREHENSIVE METABOLIC PANEL (CMP) [address] [facility] [address] [place] [address] Referral ID Status Reason Start Date Expiration Date Visits V isits Requested Authorized [id number] New Request 11/30/2019 1 1 adiology Services (Routine) - Authorization Not Required Specialty Diagnoses / Procedures Referred By Contact Refer red To Contact Diagnoses Neck pain Syed Leong MD Procedures XR CERVICAL SPINE 4-5 VIEWS [address] [facility] [address] [place] [address] Referral ID Status Reason Start Expiration Visits Visits Date Date Requested Authorized [id number] Authorization Not 11/30/2019 1 1 Required Reason for Visit Reason Comments Headache Pt. here for headaches Fatigue Pt. here for fatigue Neck Pain Pt. here for neck pain Encounter Details Date Type Department Care Team Description 11/30/2019 Office Visit [facility] Syed Leong Chronic intractable headache, unspecified headache type (Primary Dx); Family Medicine - MD Sonya Neck pain; [place] Chronic fatigue; [address] [facility] Dizziness; [address] Left acoustic neuroma (HCC-C MS) [place] [address] Social History Tobacco Use Types Packs/Day Years [...] which could then radiate to the right hinduism area. It could be 6???7/10 in intensity. [...] finally stopped the antibiotics. He was jonathan tree thinner, . He had negative Lyme testing as well as negative tick panel. He also had bloodwork done last March which was nonrevealing. He has had left hearing loss since 2010 at which time an audiogram demonstrated left-sided sensorineural deficit. He was evaluated an MRI a month ago showing a left acoustic neuroma. He was seen at [facility] Dr. Chacon who felt this is a [...] (11/30/2019 10:10 EDT) FABIOLA Interpretation Negative Negative [facility] Comment: [facility] Results were obtained with the Rocker[employer] NOVA Lite HEp-2 A NA Kit by indirect immunofluorescence. Test performed or referred by The [address] [facility] - 020 15:28 EDT Does PT Have a Latex Allergy? NO Performing Organization Address City/State/ZIP Code Phon e Number [facility] [address] [place] [address] [facility] C REACTIVE PROTEIN (11/30/2019 10:09 EDT) Pathologist Sig nature C-Reactive Protein <5.0 <10.0 mg/L [facility] Specimen Narrative [facility] - 020 11:05 EDT Does PT Have a Latex Allergy? NO Performing Organization Address [facility] Code Phon e Number [facility] [address] [place] [address] [facility] (ABNORMAL) COMPREHENSIVE METABOLIC PANEL (CMP) (11/30/2019 10:09 EDT) ALBUMIN - [facility] 4.6 3.4 - 4.9 [facility] g/dL [facility] ALKALINE 51 38 - 126 U/L [facility] PHOSPHATASE - [facility] BILIRUBIN TOTAL 0.4 0.2 - 1.3 [facility] mg/dL [facility] BUN - [facility] 25 10 - 26 mg/dL [facility] CALCIUM - [facility] 9.5 8.5 - 10.5 [facility] mg/dL [facility] Chloride 101 96 - 110 [facility] mmol/L [facility] CO2 Total 30 21 - 32 mEq/L [facility] CREATININE 0.86 0.66 - 1.25 [facility] mg/dL [facility] eGFR >60 [facility] Comment: [facility] Chronic renal impairment is defined as GFR <60 Multiply result by 1.210 for patients . Anion Gap 7 0 - [address] [facility] GLUCOSE - [facility] 78 70 - 100 [facility] mg/dL [facility] Potassium 4.4 3.5 - 5.0 [facility] mEq/L [facility] Sodium 138 136 - 145 [facility] mEq/L [facility] TOTAL PROTEIN - 7.2 6.2 - 8.2 [facility] gm/dL [facility] SGOT/AST - [facility] 46 17 - 59 U/L [facility] SGPT/ALT - [facility] 52 (H) 0 - 50 U/L [facility] Specimen Narrative [facility] - 020 11:05 EDT Does PT Have a Latex Allergy? NO Performing Organization Address City/[facility] Code Phon e Number [facility] [address] LAB THYROID CASCADE (11/30/2019 10:09 EDT) Pathologist Sig nature TSH 1.77 0.46 - 4.68 uIU/mL [facility] Specimen Blood - Venous blood (substance) Narrative [facility] - 020 11:35 EDT Does PT Have a Latex Allergy? NO Performing Organization Address City/[facility]/ZIP Code Phon e Number [facility] [address] LAB COMPLETE BLOOD COUNT WITH DIFFERENTIAL (AUTO) (11/30/2019 10:05 EDT) Pathologist Sig nature Gran # 3.3 2.2 - 8.85 [facility] 10e3/uL [facility] BASO # - [facility] 0.03 0.01 - 0.11 [facility] 10e/uL [facility] BASO % - [facility] 1 0 - 2 % [facility] EOS # - [facility] 0.08 0.03 - 0.61 [facility] 10e3/ul [facility] EOS % - [facility] 2 0 - 5 % [facility] GRAN % - [facility] 61.1 40 - 80 % [facility] HEMATOCRIT - [facility] 43.1 39.5 - 50.2 % [facility] HEMOGLOBIN - CV 14.6 13.8 - 17.3 g/dl [facility] IG# - [facility] 0.01 0 - 0.7 10e3/uL [facility] IG% - [facility] 0.2 0 - 0.9 % [facility] LYMPH # - [facility] 1.7 1.09 - 3.3 [facility] 10e3/ul CENTER LAB LYMPH% - [facility] 30.8 20 - 40 % [facility] MEAN CORPUSCULAR HGB - 30.7 27.6 - 33.0 pg [facility]ENTER LAB MEAN CORPUSCULAR HGB 33.9 32.8 - 36.4 g/dL [facility] CONC - [facility] LAB MEAN CELL VOLUME - 90.5 81 - 95 fl [facility] MONO # - [facility] 0.3 0.1 - 0.8 [facility] 10e3/uL [facility] MONO% - [facility] 5.9 0 - 12 % [facility] PLATELET COUNT 199 141 - 377 [facility] 10e3/ul [facility] RED BLOOD COUNT - [facility] 4.76 4.36 - 5.78 [facility] D 10e3/ul [facility] RED CELL DISTRI WIDTH 12.0 <14.2 % [facility] WHITE BLOOD COUNT - 5.5 4.0 - 10.4 [place] [id number]/[facility] Specimen Narrative [facility] - 020 10:46 EDT Does PT Have a Latex Allergy? NO Performing Organization Address City/State/ZIP Code Phon e Number [facility] [address] LAB documented in this encounter Visit Diagnoses Diagnosis Chronic intractable headache, unspecifie d headache type - Primary Neck pain Cervicalgia Chronic fatigue Other malaise and fatigue Dizziness Dizziness and giddiness Left acoustic neuroma (HCC-CMS) (HCC) Benign neoplasm of cranial nerves documented in this encounter Care Teams Review Engineer Relationship Specialty Start Date End Date Syed Leong MD PCP - General 04/08/09 0 documented as of this encounter
--- OUTSIDE RECORDS SUMMARY | 2022-05-22 15:24 | XMS_ITS | Encounter Summary ---
:1980 Author Organization [facility] Address [address] [place] [address] Care Team Providers Name Role Phone Syed [...] on filedocumented in this encounter Care Teams Project Scientist Relationship Specialty Start Date End Date Syed Leong MD PCP - General 04/08/09 0 documented as of this encounter
--- OUTSIDE RECORDS SUMMARY | 2022-05-22 15:24 | XMS_ITS | Encounter Summary ---
:1980 Author Organization [facility] Address [address] [place] [address] Care Team Providers Name Role Phone Syed [...] on filedocumented in this encounter Care Teams Electric Well Logging Operator Relationship Specialty Start Date End Date Syed Leong MD PCP - General 04/08/09 0 documented as of this encounter
--- OUTSIDE RECORDS SUMMARY | 2022-05-22 15:24 | XMS_ITS | Encounter Summary ---
:1980 Author Organization [facility] Address [address] [place] [address] Care Team Providers Name Role Phone Syed Leong MD Primary Care Provider Unavailable Reason for Referral Cardiology (Routine) - Closed Specialty Diagnoses / Procedures Referred By Contact Refer red To Contact Diagnoses Other fatigue Heart palpitations Syed Lenog MD Procedures TRANSTHORACIC ECHO (TTE) COMPLETE [address] [facility] [address] [place] [address] Referral ID Status Reason Start Date Expiration Date Visits Requ ested Visits Authorized [id number] Closed 01/29/2020 07/27/2020 1 1 Reason for Visit Reason Onset Date Comments Referral Request 01/11/2020 Encounter Details Date Type Department Care Team Description 01/11/2020 Telephone [facility] Syed Leong MD Referral Request Medicine [facility] [address] [facility] [address] [address] Social History Tobacco Use Types Packs/Day Years [...] another MRI next week with anesth at [facility]. He will stick with Dr Whitley Still [...] stating that since they are driving to [facility] so much right now they would likea referral for a retina specialist down in [place]/[facility]. Also, can a nurse call the pt [...] 01/12/2020 documented in this encounter Care Teams Sanitation Worker Relationship Specialty Start Date End Date Syed Leong MD PCP - General 04/08/09 0 documented as of this encounter
--- OUTSIDE RECORDS SUMMARY | 2022-05-22 15:24 | XMS_ITS | Encounter Summary ---
:1980 Author Organization [facility] Address [address] [place] [address] Care Team Providers Name Role Phone Syed Leong MD Primary Care Provider Unavailable Reason for Visit Reason Onset Date Comments Referral Request 10/05/2019 Encounter Details Date Type Department Care Team Description 10/05/2019 Telephone [facility] Family Syed Leong MD Referral Request Medicine - [address] [address] Social History Tobacco Use Types Packs/Day Years [...] - 10/05/2019 1334 EST Received notification from [facility] that they need a new order for MRI head w/wo contrast. Order pended. Bear Willingham documented in this encounter Plan of Treatment Not on filedocumented as of this encounter Visit Diagnoses Diagnosis Asymmetrical hearing loss of left ear - Primary Tinnitus, left Unspecified tinnitus Dizziness Dizziness and giddiness documented in this encounter Care Teams Capacitor Pack Press Operator Relationship Specialty Start Date End Date Syed Leong MD PCP - General 04/08/09 0 documented as of this encounter
--- OUTSIDE RECORDS SUMMARY | 2022-05-22 15:24 | XMS_ITS | Encounter Summary ---
:1980 Author Organization [facility] Address [address] [place] [address] Care Team Providers Name Role Phone Syed Leong MD Primary Care Provider Unavailable Reason for Visit Reason Onset Date Comments Patient Information Update 04/08/2020 Encounter Details Date Type Department Care Team Description 04/08/2020 Telephone [facility] Syed Leong, Erika ent Information Family Medicine - MD Update [address] [place] [address] Social History Tobacco Use Types Packs/Day Years [...] x 9 days. Surgery is tomorrow at [facility]. Will be in patient 4-5 days. Not sure what the message regarding labs should be given this information. If we are calling Joanie tomorrow 04/11 she will be at [facility] all days so call her on cell [phone] signed by Iesha Borden RN at 04/10/2020 [...] ([facility] Need to follow lytes on this medication. elephone Encounter - Bere Maynard - 04/08/2020 1421 EDT Mai at [facility] is calling asking that Dr. Leong calls Dr. Whitley in regards to patient, please advise. documented in this encounter Plan of Treatment Not on filedocumented as of this encounter Visit Diagnoses Not on filedocumented in this encounter Care Teams Shell Core And Molding Supervisor Relationship Specialty Start Date End Date Syed Leong MD PCP - General 04/08/09 0 documented as of this encounter
--- OUTSIDE RECORDS SUMMARY | 2022-05-22 15:24 | XMS_ITS | Encounter Summary ---
:1980 Author Organization [facility] Address [address] [place] [address] Care Team Providers Name Role Phone Syed Leong MD Primary Care Provider Unavailable Unknown, Provider Primary Care Provider Encounter Details Date Type Department Care Team Description 12/06/2019 Results Only Imaging [facility] - Uvaldo Leong, [facility] Cardiology Clin ic [address] [place] [address] Social History Tobacco Use Types [...] EKG 12-LEAD (12/06/2019 10:20 EDT) Specimen Narrative [facility] - 020 10:20 EDT ? [facility] ? Test Date: ?2019-12-06 10:20:22 Pat Name: ? FLAVIO ALMAZAN ?Department: ?Room: ? Gender: ? M ?Contractor General Building: ?? MS : ?1980 ? Requested By: Order Number: ?Reading : ?? Jennifer Sanders MD ? Measurements Intervals ?Mears ? Rate: ? 67 ? P: ?66 MA: ? 154 ?QRS: ?47 QRSD: ? 88 ? T: ?32 QT: ? 388 ? QTc: ?409 ? Interpretive Statements Normal sinus rhythm Normal ECG No previous ECG available for comparison Electronically Signed On 12-06-2019 22:05 :34 EDT by Jennifer Sanders MD [email or web address] Procedure Note Jennifer Sanders MD - 12/06/2019 [facility] Test Date: 2019-12-06 10:20:22 Pat Name: FLAVIO ALMAZAN Department: Room: Gender: M Contractor General Building: : 1980 Requested By: Order Number: Reading MD: Jennifer simmons MD Measurements Intervals Mears Rate: 67 P: 66 MA: 154 QRS: 47 QRSD: 88 T: 32 QT: 388 QTc: 409 Interpretive Statements Normal sinus rhythm Normal ECG No previous ECG available for comparison Electronically Signed On 12-06-2019 22:05 :34 EDT by Jennifer Sanders MD [email or web address] Performing Organization Address City/State/ZIP Code Phon e Number [facility] [address] LAB documented in this encounter Visit Diagnoses Not on filedocumented in this encounter Care Teams Waste Reduction Coordinator Relationship Specialty Start Date End Date Syed Leong MD PCP - General 04/08/09 0 Unknown, Provider, PCP - General 11/24/20 documented as of this encounter
--- OUTSIDE RECORDS SUMMARY | 2022-05-22 15:24 | XMS_ITS | Encounter Summary ---
:[address] [facility] Address [address] [place] [address] Care Team Providers Name Role Phone Syed [...] on filedocumented in this encounter Care Teams Partition Assembler Relationship Specialty Start Date End Date Syed Leogn MD PCP - General 04/08/09 0 documented as of this encounter
--- OUTSIDE RECORDS SUMMARY | 2022-05-22 15:24 | XMS_ITS | Encounter Summary ---
:1980 Author Organization [facility] Address [address] [place] [address] Care Team Providers Name Role Phone Syed Leong MD Primary Care Provider Unavailable Reason for Referral Laboratory Services (Routine) - New Request Specialty Diagnoses / Procedures Referred By Contact Refer red To Contact Diagnoses Other fatigue Syed Leong MD Procedures MONO-TEST [address] [facility] [address] [place] [address] Referral ID Status Reason Start Date Expiration Date Visits V isits Requested Authorized [id number] New Request 04/13/2019 1 1 aboratory Services (Routine) - New Request Specialty Diagnoses / Procedures Referred By Contact Refer red To Contact Diagnoses Other fatigue Syed Leong MD Procedures COMPLETE BLOOD COUNT AND DIFFERENTIAL [address] [facility] [address] [place] [address] Referral ID Status Reason Start Date Expiration Date Visits V isits Requested Authorized [id number] New Request 04/13/2019 1 1 aboratory Services (Routine/Next Available) - New Request Specialty Diagnoses / Procedures Referred By Contact Refer red To Contact Diagnoses Other fatigue Myalgia Syed Leong MD Procedures ANTI NUCLEAR AB (FABIOLA), IFA [address] [facility] [address] [place] [address] Referral ID Status Reason Start Date Expiration Date Visits V isits Requested Authorized [id number] New Request 04/13/2019 1 1 aboratory Services (Routine) - New Request Specialty Diagnoses / Procedures Referred By Contact Refer red To Contact Diagnoses Other fatigue Nonintractable headache, unspecified chronicity pattern, unspecified headache type Syed Pierre MD Procedures C REACTIVE PROTEIN [address] [address] Referral ID Status Reason Start Date Expiration Date Visits V isits Requested Authorized [id number] New Request 04/13/2019 1 1 aboratory Services (Routine) - New Request Specialty Diagnoses / Procedures Referred By Contact Refer red To Contact Diagnoses Shayleealgia Syed Leong MD Procedures CK [address] [place] [address] Referral ID Status Reason Start Date Expiration Date Visits V isits Requested Authorized [id number] New Request 04/13/2019 1 1 aboratory Services (Routine) - New Request Specialty Diagnoses / Procedures Referred By Contact Refer red To Contact Diagnoses Other fatigue Nonintractable headache, unspecified chronicity pattern, unspecified headache type Syed Leong MD Procedures WEST NILE VIRUS (WNV) AB, IGG, IGM, SERUM [address] [place] [address] Referral ID Status Reason Start Date Expiration Date Visits V isits Requested Authorized [id number] New Request 04/13/2019 1 1 Reason for Visit Reason Onset Date Comments Results 04/13/2019 Encounter Details Date Type Department Care Team Description 04/13/2019 Telephone [facility] Syed Leong MD Results Medicine - [place] [address] [place] [address] Social History Tobacco Use Types Packs/Day Years [...] unspecified documented in this encounter Care Teams Bulk Plant Agent Relationship Specialty Start Date End Date Syed Leong MD PCP - General 04/08/09 0 documented as of this encounter
--- OUTSIDE RECORDS SUMMARY | 2022-05-22 15:25 | XMS_ITS | Encounter Summary ---
:1980 Author Organization [facility] Address [address] [place] [address] Care Team Providers Name Role Phone Syed Leong MD Primary Care Provider Unavailable Reason for Visit Reason Onset Date Comments Follow-up 11/18/2017 Encounter Details Date Type Department Care Team Description 11/18/2017 Telephone [facility] General Abdiel Edwards, Follow-up Surgery - Ye MORROW [address] [facility] [address] [place] [address] [place] [phone] (Wo rk) Social History Tobacco Use Types [...] on filedocumented in this encounter Care Teams Warning Analyst Relationship Specialty Start Date End Date Syed Leong MD PCP - General 04/08/09 0 documented as of this encounter
--- OUTSIDE RECORDS SUMMARY | 2022-05-22 15:25 | XMS_ITS | Encounter Summary ---
:1980 Author Organization [facility] Address [address] [place] [address] Care Team Providers Name Role Phone Syed Leong MD Primary Care Provider Unavailable Encounter Details Date Type Department Care Team Description 06/02/2014 Results Only [facility] [place] Nimesh [phone] [address] [place] [address] (Wo rk) Social History Tobacco [...] 6:38 EDT [place]ul [place] for this PANEL [place] procedure are i n the results section. documented in this encounter Results BASIC METABOLIC PANEL [place] [place] (06/02/2014 6:38 EDT) Bun, External 9 7 - 18 mg/dL [facility] Calcium, External 9.2 8.5 - 10.1 [facility] mg/dL [facility] Chloride, External 101 98 - 107 [facility] mEq/L [facility] CO2, External 28 21 - 32 mEq/L [facility] Creatinine, 0.9 0.5 - 1.4 [facility] External mg/dL [facility] GFR, Kelvin/Est., >60 [facility] External Comment: [facility] Chronic renal impairment is defined as GFR <60 Multiply result by 1.210 for patients . Glucose, Serum, 85 70 - 100 [facility] External mg/dL [facility] Potassium, 4.4 3.5 - 5.0 [facility] External mEq/L [facility] Sodium, External 135 135 - 145 [facility] mEq/L [facility] Specimen Performing Organization Address City/State/[facility] Code Phon e Number [facility] [address] LAB documented in this encounter Visit Diagnoses Not on filedocumented in this encounter Care Teams Busboy Relationship Specialty Start Date End Date Syed Leong MD PCP - General 04/08/09 0 documented as of this encounter
--- OUTSIDE RECORDS SUMMARY | 2022-05-22 15:25 | XMS_ITS | Encounter Summary ---
:1980 Author Organization [facility] Address [address] [place] [address] Care Team Providers Name Role Phone Syed Leong MD Primary Care Provider Unavailable Reason for Referral Laboratory Services (Routine) - New Request Specialty Diagnoses / Procedures Referred By Contact Refer red To Contact Diagnoses Exposure to hepatitis C Syed Leong MD Procedures HEPATITIS C AB W REFLEX TO HCV RNA BY PCR [address] [place] [address] [address] Referral ID Status Reason Start Date Expiration Date Visits V isits Requested Authorized [id number] New Request 06/14/2018 1 1 Reason for Visit Reason Onset Date Comments Labs Only 06/14/2018 Encounter Details Date Type Department Care Team Description 06/14/[address] [facility] Syed Leong MD Labs Only Medicine - [place] 130 [facility] [address] [address] Social History Tobacco Use Types Packs/Day Years [...] Pathologist Sig nature Hepatitis C Ab Negative [facility] Specimen Blood specimen (specimen) Performing Organization Address City/State/ZIP Code Phon e Number [facility] [address] [place], [place] [id number] [place] [address] LAB documented in this encounter Visit Diagnoses Diagnosis Exposure to hepatitis C - Primary Contact with or exposure to other viral diseases documented in this encounter Care Teams Fish Peddler Relationship Specialty Start Date End Date Syed Leong MD PCP - General 04/08/09 0 documented as of this encounter
--- OUTSIDE RECORDS SUMMARY | 2022-05-22 15:25 | XMS_ITS | Encounter Summary ---
:1980 Author Organization [facility] Address [address] [place] [address] Care Team Providers Name Role Phone Syed Leong MD Primary Care Provider Unavailable Reason for Visit Reason Onset Date Comments Hospital Discharge Follow Up 05/29/2014 Encounter Details Date Type Department Care Team Description 05/29/2014 Telephone [facility] [place], Hospital Discharge Family Medicine - MICHAEL Marin Follow Up [address] [place] [address] Social History Tobacco Use Types Packs/Day Years [...] the med list. I saw report in [employer] on stool negative but I did not [...] tablet added in this encounter Care Teams Corrosion Control Technician Relationship Specialty Start Date End Date Syed Leong MD PCP - General 04/08/09 0 documented as of this encounter
--- OUTSIDE RECORDS SUMMARY | 2022-05-22 15:25 | XMS_ITS | Encounter Summary ---
:1980 Author Organization [facility] Address [address] [place] [address] Care Team Providers Name Role Phone Syed Leong MD Primary Care Provider Unavailable Reason for Referral Consult, Test and Treat (Routine/Next Available) - Closed Specialty Diagnoses / Procedures Referred By Contact Refer red To Contact Diagnoses Low back pain without sciatica, unspecified back pain laterality Syed Leong MD [address] [place] [address] [address] [place] [address] Referral ID Status Reason Start Date Expiration Date Visits V isits Requested Authorized [id number] Closed Specialty 04/05/2015 1 1 Services Required Question Answer Reason for Request: exacerbation of recurrent LB P Comments Patient will call us to let us know ha darling PT he would like to see so we can fax Reason for Visit Reason Onset Date Comments Back Pain 04/05/2015 Encounter Details Date Type Department Care Team Description 04/05/2015 Telephone [facility] Syed Leong MD Back Pain Medicine - [address] [place] [address] Social History Tobacco Use Types Packs/Day Years [...] Primary documented in this encounter Care Teams Office Administrator Relationship Specialty Start Date End Date Syed Leong MD PCP - General 04/08/09 0 documented as of this encounter
--- OUTSIDE RECORDS SUMMARY | 2022-05-22 15:25 | XMS_ITS | Encounter Summary ---
:1980 Author Organization [facility] Address [address] [place] [address] Care Team Providers Name Role Phone Syed Leong MD Primary Care Provider Unavailable Reason for Visit Reason Comments Other Encounter Details Date Type Department Care Team Description 04/11/2016 Refill [facility] Family Medicine Syed Dangelo rd, MD [facility] [place] [address] Social History Tobacco Use Types Packs/Day Years [...] documented as of this encounter Care Teams Mortgage Branch Manager Relationship Specialty Start Date End Date Syed Leong MD PCP - General 04/08/09 0 documented as of this encounter
--- OUTSIDE RECORDS SUMMARY | 2022-05-22 15:25 | XMS_ITS | Encounter Summary ---
:1980 Author Organization [facility] Address [address] [place] [address] Care Team Providers Name Role Phone Syed Leong MD Primary Care Provider Unavailable Unknown, Provider Primary Care Provider Reason for Visit Reason Comments Other Encounter Details Date Type Department Care Team Description 04/09/2018 Refill [facility] Family Medicine Staffo Syed donaldson MD [facility] - [address] [address] Social History Tobacco Use Types Packs/Day Years [...] documented as of this encounter Care Teams Grocery Clerk Selling Relationship Specialty Start Date End Date Syed Leong MD PCP - General 04/08/09 0 Unknown, MD Lucille PCP - General 11/24/20 documented as of this encounter
--- OUTSIDE RECORDS SUMMARY | 2022-05-22 15:25 | XMS_ITS | Encounter Summary ---
:1980 Author Organization [facility] Address [address] [place] [address] Care Team Providers Name Role Phone Syed Leong MD Primary Care Provider Unavailable Reason for Visit Reason Comments Nevus pt states he has a spot on h is back that has been there for quite some time, right shoulder blade, mole h as changed, painful at times Encounter Details Date Type Department Care Team Description 03/01/2014 Office Visit [facility] Unknown, Prov MD petrona Sebaceous cyst (Primary Dx); Family Medicine - Cruzito Howell FNP [address] [place] [phone] Tobacco dependence syndrome [address] [place] [address] Social History Tobacco Use Types Packs/Day Years [...] documented as of this encounter Care Teams Teletype Installer Relationship Specialty Start Date End Date Syed Leong MD PCP - General 04/08/09 0 documented as of this encounter
--- OUTSIDE RECORDS SUMMARY | 2022-05-22 15:25 | XMS_ITS | Encounter Summary ---
:1980 Author Organization [facility] Address [address] [place] [address] Care Team Providers Name Role Phone Syed Leong MD Primary Care Provider Unavailable Encounter Details Date Type Department Care Team Description 05/31/2014 Results Only [facility] Richard Baker, [address] [place] [phone] (Wo rk) Social History Tobacco [...] 23:57 Results fo r this METABOLIC PANEL [place] EDT proce dure are in the results section. documented in this encounter Results (ABNORMAL) COMPREHENSIVE METABOLIC PANEL [place] (05/31/2014 23:57 EDT) Albumin, External 3.6 3.4 - 5.0 [facility] g/dL [facility] Total Alkaline 69 10 - 117 U/L [facility] Phosphatase, [facility] External Bilirubin, Total, 0.3 0.0 - 1.0 [facility] External mg/dL [facility] Bun, External 10 7 - 18 mg/dL [facility] Calcium, External 9.6 8.5 - 10.1 [facility] mg/dL [facility] Chloride, External 103 98 - 107 [facility] mEq/L [facility] CO2, External 27 21 - 32 mEq/L [facility] Creatinine, 0.9 0.5 - 1.4 [facility] External mg/dL [facility] GFR, Kelvin/Est., >60 [facility] External Comment: [facility] Chronic renal impairment is defined as GFR <60 Multiply result by 1.210 for patients . Glucose, Serum, 112 (H) 70 - 100 [facility] External mg/dL [facility] Potassium, 4.4 3.5 - 5.0 [facility] External mEq/L [facility] Sodium, External 136 135 - 145 [facility] mEq/L [facility] Total Protein, 7.7 6.4 - 8.2 [facility] External gm/dl [facility] AST, External 30 10 - 37 U/L [facility] ALT, External 57 12 - 78 U/L [facility] Specimen Narrative [facility] - 014 0:29 EDT Does PT Have a Latex Allergy? NO Performing Organization Address City/State/ZIP Code Phon e Number [facility] [address] [place], [place] [id number] [place] [address] LAB documented in this encounter Visit Diagnoses Not on filedocumented in this encounter Care Teams Equipment Man Relationship Specialty Start Date End Date Syed Leong MD PCP - General 04/08/09 0 documented as of this encounter
--- OUTSIDE RECORDS SUMMARY | 2022-05-22 15:25 | XMS_ITS | Encounter Summary ---
:1980 Author Organization [facility] Address [address] [place] [address] Care Team Providers Name Role Phone Syed Leong MD Primary Care Provider Unavailable Reason for Visit Reason Onset Date Comments Update 06/07/2014 Encounter Details Date Type Department Care Team Description 06/07/2014 Telephone [facility] Family Syed Leong MD Update [address] [address] Social History Tobacco Use Types Packs/Day Years Used Date Former Smoker Cigarettes 10 Quit: 03/25/20 09 Smokeless Tobacco: Never Used Alcohol Use Standard Drinks/Week Comments No 0 (1 standard drink = 0.6 oz pure alcoho l) occ Sex Assigned at Date Recorded Male 03/11/2020 9:13 EDT documented as of this encounter Miscellaneous Notes Telephone Encounter - Tania Waldrop RN - 06/07/2014 1429 EDT notified Telephone Encounter - Syed Leong [...] EDT Dr Barboza is locums surgeon at [facility]. She talked with patient who is [...] on filedocumented in this encounter Care Teams Help Desk Coordinator Relationship Specialty Start Date End Date Syed Leong MD PCP - General 04/08/09 0 documented as of this encounter
--- OUTSIDE RECORDS SUMMARY | 2022-05-22 15:25 | XMS_ITS | Encounter Summary ---
:1980 Author Organization [facility] Address [address] [place] [address] Care Team Providers Name Role Phone Syed Leong MD Primary Care Provider Unavailable Encounter Details Date Type Department Care Team Description 06/14/2018 Historical Results Only [facility] - Syed Leong [facility] - Main [place] us Sonya MD [address] [place] [address] Social History Tobacco Use Types [...] (06/14/2018 15:30 EDT) HEPATITIS C AB NegativeComment: [facility] W/REFLEX - [facility] Expected Values: [facility] Negative. Specimen Narrative [facility] - 018 17:23 EDT Does PT Have a Latex Allergy? NO Enter/Edit CPT and ICD codes? N Performing Organization Address City/State/ZIP Code Phon e Number [facility] [address] [place] [address] [facility] documented in this encounter Visit Diagnoses Not on filedocumented in this encounter Care Teams Petroleum Laboratory Technician Relationship Specialty Start Date End Date Syed Leong MD PCP - General 04/08/09 0 documented as of this encounter
--- OUTSIDE RECORDS SUMMARY | 2022-05-22 15:25 | XMS_ITS | Encounter Summary ---
:1980 Author Organization [facility] Address [address] [place] [address] Care Team Providers Name Role Phone Syed Leong MD Primary Care Provider Unavailable Reason for Visit Reason Comments Follow-up Encounter Details Date Type Department Care Team Description 12/02/2017 Office Visit [facility] Sami Edwards Non-r ecurrent General Surgery - [place] Mary unilateral inguinal [place] [address] hernia without [address] obstruction [address] [place], [place] gangrene (Primary Dx) [place] [phone] Social History Tobacco Use Types Packs/Day Years [...] right testicular pain. He went to the [facility] and anUS revealed epididymitis and treated [...] Primary documented in this encounter Care Teams Case Sealer Relationship Specialty Start Date End Date Syed Leong MD PCP - General 04/08/09 0 documented as of this encounter
--- OUTSIDE RECORDS SUMMARY | 2022-05-22 15:25 | XMS_ITS | Encounter Summary ---
:1980 Author Organization [facility] Address [address] [place] [address] Care Team Providers Name Role Phone Syed Leong MD Primary Care Provider Unavailable Reason for Visit Reason Comments Sinus Problems Pt here today w/ cold sx's f or 10+ days; cough, sore throat, runny nose, sinus drainage/ pressu re / chills- no known fevers Encounter Details Date Type Department Care Team Description 10/18/2013 Office Visit [facility] Unknown, Prov MD petrona Sinusitis, acute (Primary Dx); Family Medicine - Cruzito Howell FNP [address] [place] [phone] Encounter for smoking cessation counseli [address] [place], [place] [address] Social History Tobacco Use Types Packs/Day Years [...] encounter Progress Notes Cruzito Howell - 10/18/2013 4581 EST Subjective: Patient ID: Flavio Hamm is [...] in about 1 month (around 11/15/2013) [facility] - 15. documented in this encounter Plan [...] documented as of this encounter Care Teams Coding Machine Operator Relationship Specialty Start Date End Date Syed Leong MD PCP - General 04/08/09 0 documented as of this encounter
--- OUTSIDE RECORDS SUMMARY | 2022-05-22 15:25 | XMS_ITS | Encounter Summary ---
:1980 Author Organization [facility] Address [address] [place] [address] Care Team Providers Name Role Phone Syed Leong MD Primary Care Provider Unavailable Reason for Referral Consult (Routine) - Closed Specialty Diagnoses / Procedures Referred By Contact Refer red To Contact General Surgery Diagnoses Sebaceous cyst Cruzito Howell Surgery PABLO Hurtado [address] [address] [address] [place] [phone] Referral ID Status Reason Start Date Expiration Date Visits V isits Requested Authorized [id number] Closed Specialty 03/19/2014 1 1 Services Required Question Answer Reason for Request: right shoulder large sebaceo us cyst - vasovagal response during in-office surgery, did decom press significantly but cyst remains intact Reason for Visit Reason Comments Cyst cyst removal to right should er area Medications Refill refill need for omeprazole Encounter Details Date Type Department Care Team Description 03/19/2014 Office Visit [facility] Unknown, Gonzalez russ MD Sebaceous cyst (Primary Dx); Family Medicine - Cruzito Howell FNP [address] [phone] GERD (gastroesophageal reflux disease) [address] [address] Social History Tobacco Use Types Packs/Day Years [...] documented as of this encounter Care Teams Product Development Engineer Relationship Specialty Start Date End Date Syed Leong MD PCP - General 04/08/09 0 documented as of this encounter
--- OUTSIDE RECORDS SUMMARY | 2022-05-22 15:25 | XMS_ITS | Encounter Summary ---
:1980 Author Organization [facility] Address [address] [place] [address] Care Team Providers Name Role Phone Syed Leong MD Primary Care Provider Unavailable Encounter Details Date Type Department Care Team Description 04/07/2015 Results Only [place] Shubham White [phone] MD Philip [address] [place] [phone] (Wo rk) Social History Tobacco [...] 21:07 Results fo r this METABOLIC PANEL ([facility]) EDT proce dure are in the results section. C REACTIVE PROTEIN Routine 04/07/2015 21:07 Resul ts for this EDT procedure are i n the results section. documented in this encounter Results (ABNORMAL) C REACTIVE PROTEIN (04/07/2015 21:07 EDT) Pathologist Sig nature C-Reactive Protein, 67.0 (H) 0.0 - 3.0 mg/L [facility] Specimen Narrative [facility] - 015 21:43 EDT Does PT Have a Latex Allergy? NO Performing Organization Address City/State/ZIP Code Phon e Number [facility] [address] [place] [address] [facility] (ABNORMAL) COMPREHENSIVE METABOLIC PANEL ([facility]) (04/07/2015 21:07 EDT) Albumin, External 3.6 3.4 - 5.0 [facility] g/dL [facility] Total Alkaline 68 10 - 117 U/L [facility] Phosphatase, [facility] External Bilirubin, Total, 0.3 0.0 - 1.0 [facility] External mg/dL [facility] Bun, External 13 7 - 18 mg/dL [facility] Calcium, External 8.8 8.5 - 10.1 [facility] mg/dL [facility] Chloride, External 104 98 - 107 [facility] mEq/L [facility] CO2, External 23 21 - 32 mEq/L [facility] Creatinine, 0.9 0.5 - 1.4 [facility] External mg/dL [facility] GFR, Klevin/Est., >60 [facility] External Comment: [facility] Chronic renal impairment is defined as GFR <60 Multiply result by 1.210 for patients . Glucose, Serum, 131 (H) 70 - 100 [facility] External mg/dL [facility] Potassium, 3.6 3.5 - 5.0 [facility] External mEq/L [facility] Sodium, External 137 135 - 145 [facility] mEq/L [facility] AST, External 17 10 - 37 U/L [facility] ALT, External 29 12 - 78 U/L [facility] Specimen Narrative [facility] - 015 21:43 EDT Does PT Have a Latex Allergy? NO Performing Organization Address City/[facility]/ZIP Code Phon e Number [facility] [address] [place] [address] [facility] documented in this encounter Visit Diagnoses Not on filedocumented in this encounter Care Teams Butcher Or Smallgoods Maker Relationship Specialty Start Date End Date Syed Leong MD PCP - General 04/08/09 0 documented as of this encounter
--- OUTSIDE RECORDS SUMMARY | 2022-05-22 15:25 | XMS_ITS | Encounter Summary ---
:1980 Author Organization [facility] Address [address] [place] [address] Care Team Providers Name Role Phone Syed Leong MD Primary Care Provider Unavailable Reason for Visit Reason Onset Date Comments Advice Only 06/12/2015 Sinusitis 06/12/2015 Encounter Details Date Type Department Care Team Description 06/12/2015 Telephone [facility] Syed Leong, Advi ce Only; Sinusitis Family Medicine - Be latasha MORROW [address] [place] [address] Social History Tobacco Use Types Packs/Day Years [...] on filedocumented in this encounter Care Teams Communications Equipment Operator Relationship Specialty Start Date End Date Syed Leong MD PCP - General 04/08/09 0 documented as of this encounter
--- OUTSIDE RECORDS SUMMARY | 2022-05-22 15:25 | XMS_ITS | Encounter Summary ---
:[address] [facility] Address [address] [place] [address] Care Team Providers Name Role Phone Syed Leong MD Primary Care Provider Unavailable Reason for Visit Reason Onset Date Comments Medications Refill 04/06/2017 Encounter Details Date Type Department Care Team Description 04/06/2017 Refill [facility] Syed Leong MD Medications Refill Medicine - [address] [address] Social History Tobacco Use Types Packs/Day Years [...] taking this medication. elephone Encounter - Kaylen Turk RN - 04/06/2017 1252 EDT Last Refill [...] unspecified documented in this encounter Care Teams Layer Off Relationship Specialty Start Date End Date Syed Leong MD PCP - General 04/08/09 0 documented as of this encounter
--- OUTSIDE RECORDS SUMMARY | 2022-05-22 15:25 | XMS_ITS | Encounter Summary ---
:1980 Author Organization [facility] Address [address] [place] [address] Care Team Providers Name Role Phone Syed Leong MD Primary Care Provider Unavailable Reason for Visit Reason Onset Date Comments Follow-up 11/25/2017 Encounter Details Date Type Department Care Team Description 11/25/2017 Telephone [facility] General Abdiel Edwards, Follow-up Surgery - Ye MORROW [address] [facility] [address] [place] [address] [place] [phone] (Wo rk) Social History Tobacco Use Types [...] on filedocumented in this encounter Care Teams Machine Guide Base Winder Relationship Specialty Start Date End Date Leong, Syed D, MD PCP - General 04/08/09 0 documented as of this encounter
--- OUTSIDE RECORDS SUMMARY | 2022-05-22 15:25 | XMS_ITS | Encounter Summary ---
:1980 Author Organization [facility] Address [address] [place] [address] Care Team Providers Name Role Phone Syed Leong MD Primary Care Provider Unavailable Reason for Referral Consult (Routine) - Specialty Report Received Specialty Diagnoses / Procedures Referred By Contact Refer red To Contact General Surgery Diagnoses Right inguinal hernia Simone Rodriguez MD [address] [place] [phone] [place] [address] Fax: Referral ID Status Reason Start Expiration Visits Visits Date Date Requested Authorized [id number] Specialty Specialty 10/25/2017 1 1 Report Services Received Required Question Answer Reason for Request: right inguinal hernia, small er on L Reason for Visit Reason Comments Possible Hernia (R) sided hernia, possible s maller hernia on (L) side. Mentioned by Dr. Leong years ago. Encounter Details Date Type Department Care Team Description 10/25/2017 Office Visit [facility] Simone Rodriguez Right inguinal hernia Family Medicine Linwood Cali MD (Primary Dx) [address] [phone] Social History Tobacco Use Types Packs/Day [...] ) documented in this encounter Care Teams Senior Qa Analyst Relationship Specialty Start Date End Date Syed Leong MD PCP - General 04/08/09 0 documented as of this encounter
--- OUTSIDE RECORDS SUMMARY | 2022-05-22 15:25 | XMS_ITS | Encounter Summary ---
:1980 Author Organization [facility] Address [address] [place] [address] Care Team Providers Name Role Phone Syed Leong MD Primary Care Provider Unavailable Reason for Referral Consult (Routine/Next Available) - Closed Specialty Diagnoses / Procedures Referred By Contact Refer red To Contact Diagnoses Anxiety Beverly Brothers NP [address] [facility] [address] [place] [address] Referral ID Status Reason Start Date Expiration Date Visits V isits Requested Authorized [id number] Closed Specialty 08/19/2016 1 1 Services Required [...] Department Care Team Description 08/19/2016 Office Visit [facility] Beverly Brothers NP Anxiety (Primary Dx) Family Medicine - [address] [place] [address] [place], [place] [address] [phone] [place] [address] Social History Tobacco Use Types [...] original note were not included. [facility] Patient Instructions Gastroesophageal Reflux Disease (GERD): Care [...] to control the problem with antacids or mjgu-thh-yueisfj medicine. Changing your diet, losing weight, and [...] your medicine. ?? Your doctor may recommend wnhb-lcw-rxsjhbs medicine. For mild or occasional indigestion, antacids, such as Tums, Gaviscon, Mylanta, or Maalox, may help. Your doctor also may recommend nxej-cdn-jqnvzpn acid reducers, such as Pepcid AC, Tagamet [...] Where can you learn more? Go to [email or web address] or log into your [facility] account at [email or web address] Enter T927 in the search box to learn more about Gastroesophageal Reflux Disease (GERD): Care Instructions. ?? [phone] [employer]. Care instructions adapted under license by [facility] This care instruction is for use with your licensed healthcare professional. If you have questions about a medical condition or this instruction, always ask your healthcare professional. [employer] disclaims any warranty or liability for your use of this information. Content Version: 11.0.841456; Current as of: August 02, 2015 documented [...] for follow up Other orders - Cancel: [facility] - Influenza Vaccine =>3YO Quad Preservative Free [...] documented as of this encounter Care Teams Fretted Instruments Inspector Relationship Specialty Start Date End Date Syed Leong MD PCP - General 04/08/09 0 documented as of this encounter
--- OUTSIDE RECORDS SUMMARY | 2022-05-22 15:25 | XMS_ITS | Encounter Summary ---
:1980 Author Organization [facility] Address [address] [place] [address] Care Team Providers Name Role Phone Syed Leong MD Primary Care Provider Unavailable Reason for Visit Reason Onset Date Comments Medications Refill 04/08/2017 Encounter Details Date Type Department Care Team Description 04/08/2017 Refill [facility] Heidy Arzate er Medications Refill Medicine - [place] MD Carlos [address] [place], [place] [address] [place] [address] [phone] (Wo rk) Social History Tobacco Use [...] Encounter - Kaylen Turk RN - 04/08/2017 0828 EDT Medication(s) Requested: Omeprazole Pharmacy: [facility] [...] documented as of this encounter Care Teams Instructional Assistant Relationship Specialty Start Date End Date Syed Leong MD PCP - General 04/08/09 0 documented as of this encounter
--- OUTSIDE RECORDS SUMMARY | 2022-05-22 15:25 | XMS_ITS | Encounter Summary ---
:1980 Author Organization [facility] Address [address] [place] [address] Care Team Providers Name Role Phone Syed Leong MD Primary Care Provider Unavailable Reason for Visit Reason Onset Date Comments Diarrhea 06/06/2014 Encounter Details Date Type Department Care Team Description 06/06/2014 Telephone [facility] Family Syed Leong MD Diarrhea Medicine - [address] [address] Social History Tobacco Use Types Packs/Day Years Used Date Former Smoker Cigarettes 10 Quit: 03/25/20 09 Smokeless Tobacco: Never Used Alcohol Use Standard Drinks/Week Comments No 0 (1 standard drink = 0.6 oz pure alcoho l) occ Sex Assigned at Date Recorded Male 03/11/2020 9:13 EDT documented as of this encounter Miscellaneous Notes Telephone Encounter - Tania Waldrop RN - 06/06/2014 5153 EDT He is currently on aZithromycin. (he [...] on filedocumented in this encounter Care Teams Bacteriology Professor Relationship Specialty Start Date End Date Syed Leong MD PCP - General 04/08/09 0 documented as of this encounter
--- OUTSIDE RECORDS SUMMARY | 2022-05-22 15:25 | XMS_ITS | Encounter Summary ---
:1980 Author Organization [facility] Address [address] [place] [address] Care Team Providers Name Role Phone Syed Loeng MD Primary Care Provider Unavailable Encounter Details Date Type Department Care Team Description 05/28/2014 Historical Results [facility] - Alejo Shoemaker, Only [facility] - Main [facility] [address] [facility] [address] [place] [address] [place], [place] [phone] (Wo rk) Social History Tobacco Use [...] encounter Results SURGICAL PATHOLOGY (05/28/2014) Specimen Narrative [facility] - 014 15:25 EDT Name: THAFLAVIO Jesse ?: [birth year] ?Age/Sex: 38/M ?Unit#: [id number] ? Loc: 2N ?Status: DIS Jodee ?? Reg Date: 05/27/14 ? Pt.Phone Number : ? Specimen: [id number] ? STA TUS: SOUT ?Spec Date:05/28/14 ? Physician Copies: ?Alejo Shoemaker MD ?? Tissues: A ?? Gastrointestinal Tract (AP PENDIX) ?Syed Leong MD ?? CPT: 64618 ?? Units: ??1 ?FINAL DIAGNOSIS ? Appendix, [...] the above diagnosi s. Test Performed by [facility], [address] [place] [address] Physical Director: Gloria Workman MD PHD Performing Organization Address City/State/ZIP Code Phon e Number [facility] [address] [place] [address] LAB documented in this encounter Visit Diagnoses Not on filedocumented in this encounter Care Teams Pyrotechnic Mixer Relationship Specialty Start Date End Date Syed Leong MD PCP - General 04/08/09 0 documented as of this encounter
--- OUTSIDE RECORDS SUMMARY | 2022-05-22 15:25 | XMS_ITS | Encounter Summary ---
:1980 Author Organization [facility] Address [address] [place] [address] Care Team Providers Name Role Phone Syed Leong MD Primary Care Provider Unavailable Reason for Visit Reason Onset Date Comments Medications Refill 04/23/2015 FAMOTIDINE Encounter Details Date Type Department Care Team Description 04/23/2015 Refill [facility] Syed Leong, [facility] Refill Family Medicine - latasha MORROW (FAMOTIDINE) [address] [place] [phone] Social History Tobacco Use Types Packs/Day Years [...] Encounter - Iesha Borden RN - 04/23/2015 8082 EDT Left message that Flonase has been [...] - 04/23/2015 1041 EDT Fax received from [facility] for Famotidine which appears to have been [...] documented as of this encounter Care Teams Hard Rock Miner Relationship Specialty Start Date End Date Syed Leong MD PCP - General 04/08/09 0 documented as of this encounter
--- OUTSIDE RECORDS SUMMARY | 2022-05-22 15:25 | XMS_ITS | Encounter Summary ---
:1980 Author Organization [facility] Address [address] [place] [address] Care Team Providers Name Role Phone Syed Leong MD Primary Care Provider Unavailable Reason for Visit Reason Onset Date Comments Results 06/15/2018 Encounter Details Date Type Department Care Team Description 06/15/2018 Telephone [facility] Syed Leong MD Results Medicine - [address] [address] Social History Tobacco Use Types Packs/Day Years [...] on filedocumented in this encounter Care Teams Production Stage Manager Relationship Specialty Start Date End Date Leong, Syed D, MD PCP - General 04/08/09 0 documented as of this encounter
--- OUTSIDE RECORDS SUMMARY | 2022-05-22 15:25 | XMS_ITS | Encounter Summary ---
:1980 Author Organization [facility] Address [address] [place] [address] Care Team Providers Name Role Phone Syed Leong MD Primary Care Provider Unavailable Reason for Visit Reason Onset Date Comments Advice Only 08/27/2014 Encounter Details Date Type Department Care Team Description 08/27/2014 Telephone [facility] Syed Leong MD Advice Only Medicine - [address] [address] Social History Tobacco Use Types Packs/Day Years [...] Encounter - Tania Waldrop RN - 08/29/2014 0979 EST Patient notified elephone Encounter - Syed Leong MD - 08/29/2014 0196 EST That is very LAST resort. He [...] - 08/29/2014 0917 EST Called lorazepam to [facility] elephone Encounter - Syed Leong MD [...] him with this elephone Encounter - Syed eLong MD - 08/28/2014 1355 EST He needs [...] on filedocumented in this encounter Care Teams Kiln Furniture Caster Relationship Specialty Start Date End Date Syed Leong MD PCP - General 04/08/09 0 documented as of this encounter
--- OUTSIDE RECORDS SUMMARY | 2022-05-22 15:25 | XMS_ITS | Encounter Summary ---
:1980 Author Organization [facility] Address [address] [place] [address] Care Team Providers Name Role Phone Syed Leong MD Primary Care Provider Unavailable Reason for Visit Reason Onset Date Comments Epididymitis 11/24/2017 Encounter Details Date Type Department Care Team Description 11/24/2017 Telephone [facility] Family Elmer Winters her Tran, Epididymitis Medicine - Ye MORROW [address] [place] [address] [address] [place], [place] [address] [place] [phone] (Wo rk) Social History Tobacco Use Types [...] called, recent dx after ER visit at [facility] ([facility]) 5 days ago. Pt good historian relates [...] discussed ( he requested this sent to [facility]) 2 carefully instructed to follow up if not improving 3. This was probably incidental to recent hernia surgery (but may need to consider neuropathy with referred pain if this persists) documented in this encounter Plan of Treatment Not on filedocumented as of this encounter Visit Diagnoses Diagnosis Epididymitis - Primary Orchitis and epididymitis, unspecified documented in this encounter Care Teams Surveyor Rod Helper Relationship Specialty Start Date End Date Syed Leong MD PCP - General 04/08/09 0 documented as of this encounter
--- OUTSIDE RECORDS SUMMARY | 2022-05-22 15:25 | XMS_ITS | Encounter Summary ---
:[address] [facility] Address [address] [place] [address] Care Team Providers Name Role Phone Syed Leong MD Primary Care Provider Unavailable Reason for Referral Consult, Test and Treat (Routine/Next Available) - Closed Specialty Diagnoses / Procedures Referred By Contact Refer red To Contact Diagnoses Ankle pain, right Shoulder pain, right Knee pain, left anterior Tyler Berman PA-C [address] [facility] [address] [place] [address] Referral ID Status Reason Start Date Expiration Date Visits V isits Requested Authorized [id number] Closed Specialty 11/12/2014 1 1 Services Required Question Answer Reason for Request: injury to posterior right an kle 4 weeks ago; tendonitis right shoulder; anterior left knee pain Reason for Visit Reason Comments Pain achilles tendon,shoulder and lt knee bothering him for about a week,thinks he injured self playing sports. Encounter Details Date Type Department Care Team Description 11/12/2014 Office Visit [facility] Tyler Berman Ankle pain, right (Primary Dx); Family Medicine - SACHIN Howell Shoulder p ain, right; [place] Knee pain, left anterior [address] [facility] [address] [place] [address] Social History Tobacco Use Types Packs/Day Years [...] documented as of this encounter Care Teams Caramel Candy Maker Helper Relationship Specialty Start Date End Date Syed Leong MD PCP - General 04/08/09 0 documented as of this encounter
--- OUTSIDE RECORDS SUMMARY | 2022-05-22 15:25 | XMS_ITS | Encounter Summary ---
:1980 Author Organization [facility] Address [address] [place] [address] Care Team Providers Name Role Phone Syed Leong MD Primary Care Provider Unavailable Encounter Details Date Type Department Care Team Description 05/27/2014 Results Only [facility] Rosmery Barnett rd, MD Laboratory Services - [address] [place] [address] [place] [address] [place] [address] [phone] Social History Tobacco Use Types Packs/Day Years [...] 05/27/2014 3:10 Results for this METABOLIC PANEL ([facility]) EDT proce arvine are in the results section. documented in this encounter Results COMPREHENSIVE METABOLIC PANEL ([facility]) (05/27/2014 3:10 EDT) Albumin, External 3.7 3.4 - 5.0 [facility] g/dL [facility] Total Alkaline 72 10 - 117 U/L [facility] Phosphatase, [facility] External Bilirubin, Total, 0.3 0.0 - 1.0 [facility] External mg/dL [facility] Bun, External 11 7 - 18 mg/dL [facility] Calcium, External 9.3 8.5 - 10.1 [facility] mg/dL [facility] Chloride, External 105 98 - 107 [facility] mEq/L [facility] CO2, External 28 21 - 32 mEq/L [facility] Creatinine, 1.0 0.5 - 1.4 [facility] External mg/dL [facility] GFR, Kelvin/Est., >60 [facility] External Comment: [facility] Chronic renal impairment is defined as GFR <60 Multiply result by 1.210 for patients . Glucose, Serum, 93 70 - 100 [facility] External mg/dL [facility] Potassium, 4.1 3.5 - 5.0 [facility] External mEq/L [facility] Sodium, External 137 135 - 145 [facility] mEq/L [facility] Total Protein, 7.0 6.4 - 8.2 [facility] External gm/dl [facility] AST, External 20 10 - 37 U/L [facility] ALT, External 36 12 - 78 U/L [facility] Specimen Narrative [facility] - 014 3:51 EDT Does PT Have a Latex Allergy? NO Performing Organization Address City/State/ZIP Code Phon e Number [facility] [address] [place], [place] [id number] [place] [address] LAB documented in this encounter Visit Diagnoses Not on filedocumented in this encounter Care Teams Roll Form Operator Relationship Specialty Start Date End Date Syed Leong MD PCP - General 04/08/09 0 documented as of this encounter
--- OUTSIDE RECORDS SUMMARY | 2022-05-22 15:25 | XMS_ITS | Encounter Summary ---
:1980 Author Organization [facility] Address [address] [place] [address] Care Team Providers Name Role Phone Syed Leong MD Primary Care Provider Unavailable Reason for Visit Reason Comments Medication Management Pt wants to discuss tapering off the celexa. Encounter Details Date Type Department Care Team Description 01/12/2017 Office Visit [facility] Beverly Brothers NP Anxiety (Primary Dx) Family Medicine - [address] [facility] [address] [place] [address] [address] [phone] [place] [address] Social History Tobacco Use Types [...] this encounter Progress Notes Beverly Brothers, SENIOR BACKUP ADMINISTRATOR - 01/12/2017 0945 EDT Subjective: Patient ID: [...] have stress related to family dynamics and jewish social dynamics, but he believes he can [...] documented as of this encounter Care Teams Kiln Operator Relationship Specialty Start Date End Date Syed Leong MD PCP - General 04/08/09 0 documented as of this encounter
--- OUTSIDE RECORDS SUMMARY | 2022-05-22 15:25 | XMS_ITS | Encounter Summary ---
:1980 Author Organization [facility] Address [address] [place] [address] Care Team Providers Name Role Phone Syed Leong MD Primary Care Provider Unavailable Reason for Visit Reason Onset Date Comments Patient Outreach 11/09/2018 Encounter Details Date Type Department Care Team Description 11/09/2018 Telephone [facility] Syed Leong MD Patient Outreach Medicine - [address] [address] Social History Tobacco Use Types Packs/Day Years [...] on filedocumented in this encounter Care Teams Stem Shaper Relationship Specialty Start Date End Date Syed Leong MD PCP - General 04/08/09 0 documented as of this encounter
--- OUTSIDE RECORDS SUMMARY | 2022-05-22 15:25 | XMS_ITS | Encounter Summary ---
:1980 Author Organization [facility] Address [address] [place] [address] Care Team Providers Name Role Phone Syed Leong MD Primary Care Provider Unavailable Reason for Visit Reason Comments Cyst Encounter Details Date Type Department Care Team Description 04/04/2014 Office Visit [facility] Marshal Alvarado Sebace ous cyst (Primary General Surgery - Dx) [address] [address] Social History Tobacco Use Types Packs/Day Years [...] Primary documented in this encounter Care Teams Post Closing Specialist Relationship Specialty Start Date End Date Syed Leong MD PCP - General 04/08/09 0 documented as of this encounter
--- OUTSIDE RECORDS SUMMARY | 2022-05-22 15:25 | XMS_ITS | Encounter Summary ---
:1980 Author Organization [facility] Address [address] [place] [address] Care Team Providers Name Role Phone Syed Leong MD Primary Care Provider Unavailable Reason for Referral Referral (Routine/Next Available) - Specialty Report Received Specialty Diagnoses / Procedures Referred By Contact Refer red To Contact Otolaryngology Diagnoses Asymmetrical hearing loss of left ear Syed Leong MD Kelley, Kairn S, AuD [address] [facility] [address] [place] [address] [address] [place] [phone] Phone: Fax: Referral ID Status Reason Start Expiration Visits Visits Date Date Requested Authorized [id number] Specialty Specialty 03/20/2019 1 1 Report Services Received Required Question Answer Reason for Referral: Comprehensive Hearing Eval aboratory Services (Routine) - New Request Specialty Diagnoses / Procedures Referred By Contact Refer red To Contact Diagnoses Myalgia Arthralgia, unspecified joint Fatigue, unspecified type Syed Leong MD Procedures LYME AB [address] [facility] [address] [place] [address] Referral ID Status Reason Start Date Expiration Date Visits V isits Requested Authorized [id number] New Request 03/20/2019 1 1 aboratory Services (Routine) - New Request Specialty Diagnoses / Procedures Referred By Contact Refer red To Contact Diagnoses Myalgia Arthralgia, unspecified joint Fatigue, unspecified type Syed Leong MD Procedures C REACTIVE PROTEIN 130 [facility] [address] [place] [address] Referral ID Status Reason Start Date Expiration Date Visits V isits Requested Authorized [id number] New Request 03/20/2019 1 1 aboratory Services (Routine) - New Request Specialty Diagnoses / Procedures Referred By Contact Refer red To Contact Diagnoses Myalgia Arthralgia, unspecified joint Fatigue, unspecified type Syed Leong MD Procedures COMPREHENSIVE METABOLIC PANEL (CMP) [address] [facility] [address] [address] Referral ID Status Reason Start Date Expiration Date Visits V isits Requested Authorized [id number] New Request 03/20/2019 1 1 aboratory Services (Routine) - New Request Specialty Diagnoses / Procedures Referred By Contact Refer red To Contact Diagnoses Myalgia Arthralgia, unspecified joint Fatigue, unspecified type Syed Leong MD Procedures COMPLETE BLOOD COUNT AND DIFFERENTIAL [address] [address] Referral ID Status Reason Start Date Expiration Date Visits V isits Requested Authorized [id number] New Request 03/20/2019 1 1 Reason for Visit Reason Comments Generalized Body Aches Pt is here with complaint of muscle aches, joint pain, fatigue since November. He went to [facility] and they told him he had the symptoms of Lyme disease and treated him with antibiotics. They said he would have to p ay out of pocket for the blood test. He has no history of a tick bite. Encounter Details Date Type Department Care Team Description 03/20/2019 Office Visit [facility] Syed Leong Myalgia (Primary Dx); Family Medicine - MD Sonya Arthralgia , unspecified joint; [place] Fatigue, unspecified type; 130 [facility] Asymmetrical hearing loss of left ear [address] [address] Social History Tobacco Use Types Packs/Day Years [...] pain, fatigue since [facility]. [facility] the [facility] [...] few weeks and then he went to [facility] urgent care where they said [...] Pathologist Sig nature Lyme Ab IgG NEGATIVE [facility] AB Lyme Ab NEGATIVE [facility] AB Specimen Blood specimen (specimen) Narrative [facility] - 020 11:13 EST Does PT Have a Latex Allergy? NO Performing Organization Address City/State/ZIP Code Phon e Number [facility] [address] [place], [place] [id number] [place] [address] LAB documented in this encounter Visit Diagnoses Diagnosis Myalgia - Primary Mylagia and myositis, unspecified Arthralgia, unspecified joint Fatigue, unspecified type Asymmetrical hearing loss of left ear documented in this encounter Care Teams Drum Operator Relationship Specialty Start Date End Date Syed Leong MD PCP - General 04/08/09 0 documented as of this encounter
--- OUTSIDE RECORDS SUMMARY | 2022-05-22 15:25 | XMS_ITS | Encounter Summary ---
:1980 Author Organization [facility] Address [address] [place] [address] Care Team Providers Name Role Phone Syed Leong MD Primary Care Provider Unavailable Reason for Visit Reason Onset Date Comments Other 12/29/2013 Encounter Details Date Type Department Care Team Description 12/29/2013 Telephone [facility] Syed Leong MD Other Medicine - [address] [address] Social History Tobacco Use Types Packs/Day Years Used Date Current Every Day Smoker Cigarettes 1 10 Terrence t: 03/25/2009 Smokeless Tobacco: Never Used Alcohol Use Standard Drinks/Week Comments Yes 0 (1 standard drink = 0.6 oz pure alcoho l) occ Sex Assigned at Date Recorded Male 03/11/2020 9:13 EDT documented as of this encounter Miscellaneous Notes Telephone Encounter - Song Winters - 12/29/2013 1706 EDT Agree with the plan elephone Encounter - Yesenia Messer RN - 12/29/2013 8773 EDT Spoke with pt and he was using a large hammer and hammering a post and missed the post and felt a pop in his right wrist. He put an harinder bandage on it. He is able to move the wrist -it is just sore. He was encouraged to ice the wrist, keep elevated and continue with the anti-inflammatories. He will call tomorrow if the wrist becomes swollen or if he feels the wrist is broken. He thinks it may be just sprained. He was also encouraged to go to the ER if symptoms became worse. fyi Telephone Encounter - Dona Stewart - 12/29/2013 1611 EDT Pt hurt wrist Just wanted to know what to do? Tore tendon in wrist Painful Just wanted to know what he could do about it Concerned? Heal over the next couple days? documented in this encounter Plan of Treatment Not on filedocumented as of this encounter Visit Diagnoses Not on filedocumented in this encounter Care Teams Entry Clerk Relationship Specialty Start Date End Date Syed Leong MD PCP - General 04/08/09 0 documented as of this encounter
--- OUTSIDE RECORDS SUMMARY | 2022-05-22 15:25 | XMS_ITS | Encounter Summary ---
:1980 Author Organization [facility] Address [address] [place] [address] Care Team Providers Name Role Phone Syed Garcia MD Primary Care Provider Unavailable Reason for Visit Reason Onset Date Comments Sinusitis 10/31/2012 and other issues Encounter Details Date Type Department Care Team Description 10/31/2012 Telephone [facility] Syed Garcia, Slim quijano (and other Family Medicine - MD issues ) [address], [place] [address] Social History Tobacco Use Types Packs/Day Years [...] unspecified documented in this encounter Care Teams Clinical Sales Consultant Relationship Specialty Start Date End Date Syed Garcia MD PCP - General 04/08/09 0 documented as of this encounter
--- OUTSIDE RECORDS SUMMARY | 2022-05-22 15:25 | XMS_ITS | Encounter Summary ---
:1980 Author Organization [facility] Address [address] [place] [address] Care Team Providers Name Role Phone Syed Leong MD Primary Care Provider Unavailable Reason for Visit Reason Comments Anxiety Encounter Details Date Type Department Care Team Description 07/16/2016 Office Visit [facility] Beverly Brothers NP Anxiety (Primary Dx); Family Medicine - [address] TMJ syndrome [place] [address] [place], [place] [address] [address] [place] [address] [phone] Social History Tobacco Use Types Packs/Day Years [...] in this encounter Progress Notes Beverly Brothers, SHOP ROUTER - 07/16/2016 1543 EDT Subjective: Patient ID: Flavio Hamm is [...] drinking way too much. He did, however, molded goods spot picker smoking again. He is feeling ashamed by [...] disorders documented in this encounter Care Teams Winchman/Crane Operator Relationship Specialty Start Date End Date Syed Leong MD PCP - General 04/08/09 0 documented as of this encounter
--- OUTSIDE RECORDS SUMMARY | 2022-05-22 15:25 | XMS_ITS | Encounter Summary ---
:1980 Author Organization [facility] Address [address] [place] [address] Care Team Providers Name Role Phone Syed Leong MD Primary Care Provider Unavailable Reason for Visit Reason Comments Hernia Consult (Routine) - Specialty Report Received Specialty Diagnoses / Procedures Referred By Contact Refer red To Contact General Surgery Diagnoses Right inguinal hernia Simone Rodriguez MD [facility] [address] [facility] [address] [place] [address] [place] [address] Fax: Referral ID Status Reason Start Expiration Visits Visits Date Date Requested Authorized [id number] Specialty Specialty 10/25/2017 1 1 Report Services Received Required Encounter Details Date Type Department Care Team Description 10/28/[address] [facility] Sami Edwards Non-r ecurrent General Surgery - MD Mary unilateral inguinal [place] [address] hernia without [address] obstruction or [address] [place], [place] gangrene (Primary Dx) [place] [phone] Social History Tobacco Use Types Packs/Day [...] Sami Edwards MD - 10/28/2017 1400 EST [facility] 10/28/2017 HPI: Chief Complaint Patient [...] Primary documented in this encounter Care Teams Recreation Counselor Relationship Specialty Start Date End Date Syed Leong MD PCP - General 04/08/09 0 documented as of this encounter
--- OUTSIDE RECORDS SUMMARY | 2022-05-22 15:25 | XMS_ITS | Encounter Summary ---
:1980 Author Organization [facility] Address [address] [place] [address] Care Team Providers Name Role Phone Syed Leong MD Primary Care Provider Unavailable Reason for Visit Reason Onset Date Comments Other 11/24/2017 Encounter Details Date Type Department Care Team Description 11/24/2017 Telephone [facility] Ceasar Mehta RN Other Surgery - [address] [place] [address] Social History Tobacco Use Types Packs/Day Years [...] chosethis thdecember 02. elephone Encounter - Moraima Saldnaa - 11/25/2017 1149 EDT Patient returned call, please try again. documented in this encounter Plan of Treatment Not on filedocumented as of this encounter Visit Diagnoses Not on filedocumented in this encounter Care Teams Pigs Feet Cleaner Relationship Specialty Start Date End Date Syed Leong MD PCP - General 04/08/09 0 documented as of this encounter
--- OUTSIDE RECORDS SUMMARY | 2022-05-22 15:25 | XMS_ITS | Encounter Summary ---
:1980 Author Organization [facility] Address [address] [place] [address] Care Team Providers Name Role Phone Syed Leong MD Primary Care Provider Unavailable Reason for Visit Reason Onset Date Comments Allergic Reaction 08/21/2013 Encounter Details Date Type Department Care Team Description 08/21/2013 Telephone [facility] Syed Leong MD Allergic Reaction Medicine - [address] [address] Social History Tobacco Use Types Packs/Day Years [...] He still has the sinus infection symptoms. [facility] pharmacy. Please call Joanie and let her know if he should berry picker another prescription. documented in this encounter Plan of Treatment Not on filedocumented as of this encounter Visit Diagnoses Diagnosis Sinusitis - Primary Unspecified sinusitis (chronic) documented in this encounter Care Teams Automotive Engineering Technician Relationship Specialty Start Date End Date Syed Leong MD PCP - General 04/08/09 0 documented as of this encounter
--- OUTSIDE RECORDS SUMMARY | 2022-05-22 15:25 | XMS_ITS | Encounter Summary ---
:1980 Author Organization [facility] Address [address] [place] [address] Care Team Providers Name Role Phone Syed Leong MD Primary Care Provider Unavailable Reason for Visit Reason Comments Annual Exam CDL Encounter Details Date Type Department Care Team Description 11/29/2012 Office Visit [facility] Tyler Berman physical exam (Primary Dx); Family Medicine - SACHIN Howell Screening [address] [place] [address] Social History Tobacco Use Types Packs/Day Years [...] Ketones Neg Neg [facility] Specific [place] 1.015 1.001 - 1.035 [facility] Blood Neg Neg [facility] pH 6.0 4.6 - 8.0 [facility] Protein Neg Neg [facility] Urobilinogen 0.2 0.2 - 1.0 [facility] E.U./dl LAB Nitrite Neg Neg [facility] Leuk Esterase Neg Neg [facility] field radio technician ID [id number]: ALLAN [facility] Test performed at LAB [facility] Specimen Urine (substance) Performing Organization Address City/State/ZIP Code Phon e Number [facility] [address] [place] [address] SERVICES [facility] [address] [place] [address] documented in this encounter Visit Diagnoses Diagnosis Annual physical exam - Primary Routine general medical examination at a health care facility Screening Screening for unspecified condition documented in this encounter Care Teams Department Clerk Relationship Specialty Start Date End Date Syed Leong MD PCP - General 04/08/09 0 documented as of this encounter
--- OUTSIDE RECORDS SUMMARY | 2022-05-22 15:25 | XMS_ITS | Encounter Summary ---
:1980 Author Organization [facility] Address [address] [place] [address] Care Team Providers Name Role Phone Syed Leong MD Primary Care Provider Unavailable Reason for Visit Reason Onset Date Comments Emesis 05/31/2014 Encounter Details Date Type Department Care Team Description 05/31/2014 Telephone [facility] Family [facility] Simone gramajo MD Emesis Medicine - [place] [address] 130 [facility] [address] [place] [address] [place], [place] [address] [phone] Social History Tobacco Use Types Packs/Day Years Used Date Former Smoker Cigarettes 10 Quit: 03/25/20 09 Smokeless Tobacco: Never Used Alcohol Use Standard Drinks/Week Comments No 0 (1 standard drink = 0.6 oz pure alcoho l) occ Sex Assigned at Date Recorded Male 03/11/2020 9:13 EDT documented as of this encounter Miscellaneous Notes Telephone Encounter - Simone Rodriguez MD - 05/31/2014 9753 EDT Flavio and his called the pager [...] with speaking with surgery or who is banking management consulting manager, it would be prudent to be evaluated in the ED. I advised I am available for further assistance if necessary, and they will call if any other questions arise. documented in this encounter Plan of Treatment Not on filedocumented as of this encounter Visit Diagnoses Not on filedocumented in this encounter Care Teams Manager Family Relationship Specialty Start Date End Date Syed Leong MD PCP - General 04/08/09 0 documented as of this encounter
--- OUTSIDE RECORDS SUMMARY | 2022-05-22 15:25 | XMS_ITS | Encounter Summary ---
:1980 Author Organization [facility] Address [address] [place] [address] Care Team Providers Name Role Phone Syed [...] Department Care Team Description 04/10/2013 Office Visit [facility] Tyler Berman Sinus itis (Primary Dx) Family [place] - [place], [place] [address] Social History Tobacco Use Types Packs/Day Years [...] Progress Notes Tyler Berman PA-C - 04/10/2013 0151 EDT Subjective: Patient ID: Flavio Hamm is [...] documented in this encounter Care Teams Automotive Instructor Relationship Specialty Start Date End Date Syed Leong MD PCP - General 04/08/09 0 documented as of this encounter
--- OUTSIDE RECORDS SUMMARY | 2022-05-22 15:25 | XMS_ITS | Encounter Summary ---
:1980 Author Organization [facility] Address [address] [place] [address] Care Team Providers Name Role Phone Syed Leong MD Primary Care Provider Unavailable Reason for Visit Reason Comments Knee Pain Pt here for left knee pain f or the last 3 weeks; went to [facility] care and had a prescription of Predni sone but states he had some mental changes and stopped taking it Encounter Details Date Type Department Care Team Description 10/06/2017 Office Visit [facility] Beverly Brothers , ROXANN Left knee pain, Family Medicine - [address] unspecified chronicity [place] [address] (Primary Dx) [address] [place], [place] [address] [phone] [place], [place] [address] Social History Tobacco Use Types Packs/Day Years [...] from the original note were not included. [facility] Patient Instructions Joint Pain: Care Instructions Your [...] will help reduce swelling. ?? Take an okgq-qpv-jffzywl pain medicine, such as acetaminophen (Tylenol), ibuprofen [...] Where can you learn more? Go to [email or web address] or log into your [employer] account at [email or web address]. Enter P205 in the search box to learn more about Joint Pain: Care Instructions. Current as of: December 01, 2016 Content Version: 11.4 ?? 8887-3272 [employer]. Care instructions adapted under license by [facility] If you have questions about a medical condition or this instruction, always ask your healthcare professional. [employer] disclaims any warranty or liability for your use of this information. [facility] Patient Instructions Lateral Collateral Ligament Sprain: Rehab [...] Where can you learn more? Go to [email or web address] or log into your [employer] account at [email or web address]. Enter A255 in the search box to learn more about Lateral Collateral Ligament Sprain: Rehab Exercises. Current as of: December 01, 2016 Content Version: 11.4 ?? 2259-2235 [employer]. Care instructions adapted under license by [facility] If you have questions about a medical condition or this instruction, always ask your healthcare professional. [employer] disclaims any warranty or liability for your use of this information. documented in this encounter Discharge Disposition Disposition Code Departure Means Destination Auto Discharge documented in this encounter Progress Notes Beverly Brothers NP - 10/06/2017 1600 EST Subjective: Patient ID: Flaivo Hamm is an 36 y.o. male. Chief Complaint Patient presents with ??? Knee Pain Pt here for left knee pain for the last 3 weeks; went to [facility] care and had a prescription of Prednisone but states he had some mental changes and stopped taking it HPI Here with left knee pain. No fall or trauma. Onset 3 weeks ago. He reports he has been involved in [facility] intensity interval training program. He does squats and is running. He has been out in the [employer] working and doing a lot of hiking [...] documented as of this encounter Care Teams Demographic Analyst Relationship Specialty Start Date End Date Syed Leong MD PCP - General 04/08/09 0 documented as of this encounter
--- OUTSIDE RECORDS SUMMARY | 2022-05-22 15:25 | XMS_ITS | Encounter Summary ---
:1980 Author Organization [facility] Address [address] [place] [address] Care Team Providers Name Role Phone Syed Leong MD Primary Care Provider Unavailable Reason for Visit Reason Onset Date Comments URI 10/23/2013 Encounter Details Date Type Department Care Team Description 10/23/2013 Telephone [facility] Syed Leong MD URI [address] [address] Social History Tobacco Use Types Packs/Day Years Used Date Current Every Day Smoker Cigarettes 1 10 [address] t: 03/25/2009 Smokeless Tobacco: Never Used Alcohol [...] on filedocumented in this encounter Care Teams Wig Comber Relationship Specialty Start Date End Date Syed Leong MD PCP - General 04/08/09 0 documented as of this encounter
--- OUTSIDE RECORDS SUMMARY | 2022-05-22 15:25 | XMS_ITS | Encounter Summary ---
:1980 Author Organization [facility] Address [address] [place] [address] Care Team Providers Name Role Phone Syed Leong MD Primary Care Provider Unavailable Reason for Visit Reason Onset Date Comments Advice Only 06/01/2014 Encounter Details Date Type Department Care Team Description 06/01/2014 Telephone [facility] Syed Leong MD Advice Only Medicine - [address] [place] [address] Social History Tobacco Use Types Packs/Day Years [...] with a patient advocate. elephone Encounter - Asiha Gomez - 06/01/2014 1259 EDT Pt's is [...] filedocumented in this encounter Care Teams Equipment Coordinator Relationship Specialty Start Date End Date Syed Leong MD PCP - General 04/08/09 0 documented as of this encounter
--- OUTSIDE RECORDS SUMMARY | 2022-05-22 15:25 | XMS_ITS | Encounter Summary ---
:1980 Author Organization [facility] Address [address] [place] [address] Care Team Providers Name Role Phone Syed Leong MD Primary Care Provider Unavailable Encounter Details Date Type Department Care Team Description 08/11/2014 Results Only [facility] Syed Leong MD [address] [address] Social History Tobacco Use Types [...] 08/11/2014 8:14 Results for this METABOLIC PANEL ([facility]) EST proce dure are in the results section. documented in this encounter Results COMPREHENSIVE METABOLIC PANEL ([facility]) (08/11/2014 8:14 EST) Albumin, External 4.1 3.4 - 5.0 [facility] g/dL [facility] Total Alkaline 75 10 - 117 U/L [facility] Phosphatase, [facility] External Bilirubin, Total, 0.4 0.0 - 1.0 [facility] External mg/dL [facility] Bun, External 14 7 - 18 mg/dL [facility] Calcium, External 9.5 8.5 - 10.1 [facility] mg/dL [facility] Chloride, External 104 98 - 107 [facility] mEq/L [facility] CO2, External 26 21 - 32 mEq/L [facility] Creatinine, 0.8 0.5 - 1.4 [facility] External mg/dL [facility] GFR, Kelvin/Est., >60 [facility] External Comment: [facility] Chronic renal impairment is defined as GFR <60 Multiply result by 1.210 for patients . Glucose, Serum, 83 70 - 100 [facility] External mg/dL [facility] Potassium, 4.4 3.5 - 5.0 [facility] External mEq/L [facility] Sodium, External 137 135 - 145 [facility] mEq/L [facility] AST, External 22 10 - 37 U/L [facility] ALT, External 39 12 - 78 U/L [facility] Specimen Narrative [facility] - 014 9:31 EST Does PT Have a Latex Allergy? NO Performing Organization Address City/State/ZIP Code Phon e Number [facility] [address] [place], [place] [id number] [place] [address] LAB documented in this encounter Visit Diagnoses Not on filedocumented in this encounter Care Teams Corrections Caseworker Relationship Specialty Start Date End Date Syed Leong MD PCP - General 04/08/09 0 documented as of this encounter
--- OUTSIDE RECORDS SUMMARY | 2022-05-22 15:25 | XMS_ITS | Encounter Summary ---
:1980 Author Organization [facility] Address [address] [place] [address] Care Team Providers Name Role Phone Syed Leong MD Primary Care Provider Unavailable Reason for Visit Reason Onset Date Comments Hernia 11/24/2017 Encounter Details Date Type Department Care Team Description 11/24/2017 Telephone [facility] Syed Leong MD Hernia Medicine - [address] [address] Social History Tobacco Use Types Packs/Day Years [...] Dr Edwards. Wednesday went to ER in [facility] because of testicular pain, thought he was developing another hernia. U/S was done. Diagnosed with Epididymitis. Started on Levaquin. Developed joint pain, achilles pain, felt awful. Couldn't take full course. Stopped taking Wednesday. Symptoms returned today. Testicular pain, hurts to walk, feeling cold then having sweats. Advised I think he will need to go to urgent Care. Requested message go to panel monitor MD Telephone Encounter - Vanda Freeman - [...] filedocumented in this encounter Care Teams Systems Librarian Relationship Specialty Start Date End Date Syed Leong MD PCP - General 04/08/09 0 documented as of this encounter
--- OUTSIDE RECORDS SUMMARY | 2022-05-22 15:25 | XMS_ITS | Encounter Summary ---
:1980 Author Organization [facility] Address [address] [place] [address] Care Team Providers Name Role Phone Syed Leong MD Primary Care Provider Unavailable Reason for Visit Reason Comments Joint Swelling Pt here today w/ ongoing R e lbow pain; sx's since August-pt states very sore with movement and touch Encounter Details Date Type Department Care Team Description 10/25/2015 Office Visit [facility] Simone Rodriguez Right lateral Family Medicine - MD Viraj epicondylitis (Primary [place] [address] Dx) [address] [facility] [address] [place] [phone] Social History Tobacco Use Types Packs/Day [...] elbow documented in this encounter Care Teams Sandblaster Glass Relationship Specialty Start Date End Date Syed Leong MD PCP - General 04/08/09 0 documented as of this encounter
--- OUTSIDE RECORDS SUMMARY | 2022-05-22 15:25 | XMS_ITS | Encounter Summary ---
:1980 Author Organization [facility] Address [address] [place] [address] Care Team Providers Name Role Phone Syed Leong MD Primary Care Provider Unavailable Reason for Visit Reason Onset Date Comments Follow-up 04/26/2013 Encounter Details Date Type Department Care Team Description 04/26/[address] [facility] Family Syed Leong MD Follow-up Medicine - [address] [place] [address] Social History Tobacco Use Types Packs/Day Years [...] 1 Tab by mouth 20 Tab 0 08/18/2013 (AUGMENTIN) 875-125 mg per 2 times daily for tablet 10 days. documented in this encounter Miscellaneous Notes Telephone Encounter - Tania Waldrop RN - 04/26/2013 0941 EDT Patient notified ddendum Note - Kaylee Potts - 04/26/2013 0939 EDT Addended by: KAYLEE POTTS on: 04/26/2013 09:39 Modules accepted: Orders elephone Encounter - Kaylee Potts - 04/26/2013 0938 EDT prescription for Augmentin antibiotics sent to pharmacy. Twice daily x 10 days. Take with food. Continue with saline nasal irrigation, steam. If not feeling improved in ~3 days, RTO. elephone Encounter - Gaby Mosher - 04/26/2013 0930 EDT Patient called back to say that he had 6 pretty good days after finishing the antibiotic and then yesterday things seem to flare up again. He's got a pretty bad sore throat, a little fever, and his nasal discharge is yellow and thick. elephone Encounter - Kaylee Potts - 04/26/2013 0829 EDT Spoke with Zuleika, - she is not clear as to details of his illness, and Bandar is not reachable by phone this am. She will have him call later today to discuss. elephone Encounter - Dona Stewart - 04/26/2013 0804 EDT Pt was on meds for 10 days off for 6 days for sinus Severe sore throat last night and fever this morning, is having a nasal discharge, he did use a sinus rinse, she does not know the color as he did not say. Pt saw Rodríguez for this recently Does he need to be seen or can he get something else? documented in this encounter Plan of Treatment Not on filedocumented as of this encounter Visit Diagnoses Not on filedocumented in this encounter Care Teams Machine Zipper Trimmer Relationship Specialty Start Date End Date Syed Leong MD PCP - General 04/08/09 0 documented as of this encounter
--- OUTSIDE RECORDS SUMMARY | 2022-05-22 15:25 | XMS_ITS | Encounter Summary ---
:1980 Author Organization [facility] Address [address] [place] [address] Care Team Providers Name Role Phone Syed Leong MD Primary Care Provider Unavailable Reason for Referral Laboratory Services (Routine) - Closed Specialty Diagnoses / Procedures Referred By Contact Refer red To Contact Diagnoses Syed Lopes MD Procedures COMPREHENSIVE METABOLIC PANEL (CMP) [address] [address] Referral ID Status Reason Start Date Expiration Date Visits Requ ested Visits Authorized [id number] Closed 08/10/2014 1 1 aboratory Services (Routine) - Closed Specialty Diagnoses / Procedures Referred By Contact Refer red To Contact Diagnoses Syed Lopes MD Procedures HEMAGRAM 130 [facility] [address] [address] Referral ID Status Reason Start Date Expiration Date Visits Requ ested Visits Authorized [id number] Closed 08/10/2014 1 1 Reason for Visit Reason Comments Dizziness having dizzy spells every da y,he does not have positional dizziiness. felt dizzy after he ate breakfast this am. Encounter Details Date Type Department Care Team Description 08/10/2014 Office Visit [facility] Syed Leong ss (Primary Dx) Family Medicine - MD Sonya [place] 130 [facility] [address] [address] Social History Tobacco Use Types Packs/Day Years [...] documented as of this encounter Care Teams Engraver Optical Frames Relationship Specialty Start Date End Date Syed Leong MD PCP - General 04/08/09 0 documented as of this encounter
--- OUTSIDE RECORDS SUMMARY | 2022-05-22 15:25 | XMS_ITS | Encounter Summary ---
:1980 Author Organization [facility] Address [address] [place] [address] Care Team Providers Name Role Phone Syed Leong MD Primary Care Provider Unavailable Reason for Visit Reason Comments URI on going cold sxs for a coup le weeks Encounter Details Date Type Department Care Team Description 08/18/2013 Office Visit [facility] Tyler Berman itis (Primary Dx); Family Medicine - R, [place] [address] Social History Tobacco Use Types Packs/Day Years [...] documented as of this encounter Care Teams Petroleum Geologist Relationship Specialty Start Date End Date Syed Leong MD PCP - General 04/08/09 0 documented as of this encounter
--- OUTSIDE RECORDS SUMMARY | 2022-05-22 15:25 | XMS_ITS | Encounter Summary ---
:[address] [facility] Address [address] [place] [address] Care Team Providers Name Role Phone Syed Leong MD Primary Care Provider Unavailable Reason for Referral Consult (3 - 10 Business Days) - Closed Specialty Diagnoses / Procedures Referred By Contact Refer red To Contact Diagnoses Gum abscess Gus Crenshaw MD [address] [place] [address] [address] Referral ID Status Reason Start Date Expiration Date Visits V isits Requested Authorized [id number] Closed Specialty 06/18/2014 1 1 Services Required Question Answer Reason for Request: right lower gum abscess Reason for Visit Reason Comments Cyst possible cyst in mouth, pt n oticed it a few weeks ago, he has been experiencing headaches as we ll, left side, pt did have his wisdom teeth out Encounter Details Date Type Department Care Team Description 06/18/2014 Office Visit [facility] Gus Crenshaw bscess (Primary Family Medicine - MD Yanni Dx) [address] [address] Social History Tobacco Use Types Packs/Day Years [...] unspecified documented in this encounter Care Teams Facilities Maintenance Manager Relationship Specialty Start Date End Date Syed Leong MD PCP - General 04/08/09 0 documented as of this encounter
--- OUTSIDE RECORDS SUMMARY | 2022-05-22 15:25 | XMS_ITS | Encounter Summary ---
:1980 Author Organization [facility] Address [address] [place] [address] Care Team Providers Name Role Phone Syed Leong MD Primary Care Provider Unavailable Reason for Visit Reason Onset Date Comments Anxiety 11/23/2014 Encounter Details Date Type Department Care Team Description 11/23/2014 Telephone [facility] Family Syed Leong MD Anxiety Medicine - [address] [address] Social History Tobacco Use Types Packs/Day Years [...] on filedocumented in this encounter Care Teams Human Relations Professor Relationship Specialty Start Date End Date Syed Leong MD PCP - General 04/08/09 0 documented as of this encounter
--- OUTSIDE RECORDS SUMMARY | 2022-05-22 15:25 | XMS_ITS | Encounter Summary ---
:1980 Author Organization [facility] Address [address] [place] [address] Care Team Providers Name Role Phone Syed Leong MD Primary Care Provider Unavailable Encounter Details Date Type Department Care Team Description 05/27/2014 Hospital Encounter [phone] [place] [address] (Work) [place] [address] Social History Tobacco Use Types Packs/Day Years [...] on filedocumented in this encounter Care Teams Fur Trimmer Relationship Specialty Start Date End Date Syed Leong MD PCP - General 04/08/09 0 documented as of this encounter
--- OUTSIDE RECORDS SUMMARY | 2022-05-22 15:25 | XMS_ITS | Encounter Summary ---
:1980 Author Organization [facility] Address [address] [place] [address] Care Team Providers Name Role Phone Syed Leong MD Primary Care Provider Unavailable Reason for Referral Radiology Services (Routine) - Closed Specialty Diagnoses / Procedures Referred By Contact Refer red To Contact Diagnoses Hearing loss in left ear Left-sided tinnitus Nystagmus Dizziness Syed Leong MD Procedures MR HEAD [address] [facility] [address] [place] [address] Referral ID Status Reason Start Date Expiration Date Visits Requ ested Visits Authorized [id number] Closed 08/13/2014 1 1 Reason for Visit Reason Onset Date Comments Results 08/13/2014 labs Dizziness 08/13/2014 Encounter Details Date Type Department Care Team Description 08/13/2014 Telephone [facility] Syed Leong, Resu lts (labs); Family Medicine - Dizziness [place] 130 [facility] [address] [place] [address] Social History Tobacco Use Types Packs/Day Years Used Date Former Smoker Cigarettes 10 Quit: 03/25/20 09 Smokeless Tobacco: Never Used Alcohol Use Standard Drinks/Week Comments No 0 (1 standard drink = 0.6 oz pure alcoho l) occ Sex Assigned at Date Recorded Male 03/11/2020 9:13 EDT documented as of this encounter Miscellaneous Notes Telephone Encounter - Syed Leong MD - 08/13/2014 3542 EST Labs normal. Spoke with Dr Melgoza [...] giddiness documented in this encounter Care Teams Chlorine Plant Operator Relationship Specialty Start Date End Date Syed Leong MD PCP - General 04/08/09 0 documented as of this encounter
--- OUTSIDE RECORDS SUMMARY | 2022-05-22 15:25 | XMS_ITS | Encounter Summary ---
:1980 Author Organization [facility] Address [address] [place] [address] Care Team Providers Name Role Phone Syed Leong MD Primary Care Provider Unavailable Reason for Visit Reason Onset Date Comments Appointment Related 03/21/2014 Encounter Details Date Type Department Care Team Description 03/21/2014 Telephone [facility] Sami Edwards Appoi ntment Related General Surgery - Be latasha Hernandez MD 130 [facility] 130 [facility] [address] [place] [address] [place] [phone] (Wo rk) Social History Tobacco Use [...] is infected. Please call to discuss @ [phone]. He does not have an appointment with Dr. Edwards yet. documented in this encounter Plan of Treatment Not on filedocumented as of this encounter Visit Diagnoses Not on filedocumented in this encounter Care Teams Electrical Estimator Relationship Specialty Start Date End Date Syed Leong MD PCP - General 04/08/09 0 documented as of this encounter
--- OUTSIDE RECORDS SUMMARY | 2022-05-22 15:25 | XMS_ITS | Encounter Summary ---
:1980 Author Organization [facility] Address [address] [place] [address] Care Team Providers Name Role Phone Syed Leong MD Primary Care Provider Unavailable Encounter Details Date Type Department Care Team Description 04/07/2015 Historical Results [facility] Radiology Resul ts MD Philip 130 [facility] [address] [place], [place] [address] [place] [address] [phone] Social History Tobacco Use Types Packs/Day [...] W CONTRAST (04/07/2015 23:14 EDT) Specimen Narrative [facility] - 04/07/2015 23:14 EDT ? EXAM: [...] MD ? Transcribed Date/Time: 04/07/2015 (2314) ? Chief Diversity Officer: AD ? Printed Date/Time: 02/21/2019 (00 28) [...] Leong MD Transcribed Date/Time: 04/07/2015 (2314 ) Chief Diversity Officer: Printed Date/Time: 02/21/2019 (0023) PAGE 2 Signed Report Performing Organization Address City/State/ZIP Code Phon e Number [facility] XR CHEST 2 VIEWS (04/07/2015 22:08 EDT) Specimen Narrative [facility] - 04/07/2015 22:08 EDT ? EXAM: [...] MD ? Transcribed Date/Time: 04/07/2015 (2208) ? Chief Diversity Officer: VR[employer] ? Printed Date/Time: 02/21/2019 (00 28) [...] Leong MD Transcribed Date/Time: 04/07/2015 (2208 ) Chief Diversity Officer: Printed Date/Time: 02/21/2019 (0028) PAGE 1 Signed Report Performing Organization Address City/State/ZIP Code Phon e Number [facility] documented in this encounter Visit Diagnoses Not on filedocumented in this encounter Care Teams Breeder Service Technician Relationship Specialty Start Date End Date Syed Leong MD PCP - General 04/08/09 0 documented as of this encounter
--- OUTSIDE RECORDS SUMMARY | 2022-05-22 15:25 | XMS_ITS | Encounter Summary ---
:1980 Author Organization [facility] Address [address] [place] [address] Care Team Providers Name Role Phone Syed Leong MD Primary Care Provider Unavailable Reason for Visit Reason Onset Date Comments Results 08/11/2014 Encounter Details Date Type Department Care Team Description 08/11/2014 Telephone [facility] Syed Leong MD Results Medicine - [address] [address] Social History Tobacco Use Types Packs/Day Years [...] on filedocumented in this encounter Care Teams Fashion Model Relationship Specialty Start Date End Date Syed Leong MD PCP - General 04/08/09 0 documented as of this encounter
--- OUTSIDE RECORDS SUMMARY | 2022-05-22 15:25 | XMS_ITS | Encounter Summary ---
:[address] [facility] Address [address] [place] [address] Care Team Providers Name Role Phone Syed Leong MD Primary Care Provider Unavailable Reason for Visit Reason Comments URI Pt here today with sx's for 2+ weeks; congested, body aches-R side neck pain, sore throat- no known fevers Encounter Details Date Type Department Care Team Description 04/02/2015 Office Visit [facility] Tyler Berman Acute sinusitis, recurrence not specified, unspecified location (Primary Dx); Family Medicine - R, SACHIN prince [address], [place] [address] Social History Tobacco Use Types Packs/Day Years [...] Progress Notes Tyler Berman PA-C - 04/02/2015 9826 EDT Subjective: Patient ID: Flavio Hamm is [...] documented as of this encounter Care Teams Machine Stemmer Relationship Specialty Start Date End Date Syed Leong MD PCP - General 04/08/09 0 documented as of this encounter
--- OUTSIDE RECORDS SUMMARY | 2022-05-22 15:26 | XMS_ITS | Encounter Summary ---
:1980 Author Organization [facility] Address [address] [place] [address] Care Team Providers Name Role Phone Syed Leong MD Primary Care Provider Unavailable Reason for Visit Reason Onset Date Comments Medication Reaction 01/14/2011 Encounter Details Date Type Department Care Team Description 01/14/2011 Telephone [facility] Family Syed Leong, Medication Reaction Medicine - Ye MORROW [address] [place] [address] [address] Social History Tobacco Use Types Packs/Day Years Used Date Former Smoker Quit: 03/25/20 09 Sex Assigned at Date Recorded Male 03/11/2020 9:13 EDT documented as of this encounter Miscellaneous Notes Telephone Encounter - Bhavya Stout RN - 01/14/2011 1102 EDT Patient notified. elephone Encounter - Syed Leong MD - 01/14/2011 1003 EDT Agree. Telephone Encounter - Nette Arteaga MD - 01/14/2011 0953 EDT He has an appointment tomorrow with Dr Melgoza. For today, he should stop the cefuroxime. He may take tylenol or ibuprofen for the ear pain. He can do sinus rinses. He should wait to see Dr Melgoza tomorrow for any new antibiotic Rx. elephone Encounter - Aisha Torres - 01/14/2011 0854 EDT The antibiotic prescribed by Syed on Wednesday is not working. It is causing him more pressure in his sinuses, his left ear hurts, and he's having diarrhea. Is there something else you can prescribe for him? Can be reached at [phone]. documented in this encounter Plan of Treatment Not on filedocumented as of this encounter Visit Diagnoses Not on filedocumented in this encounter Care Teams Health And Physical Education Professor Relationship Specialty Start Date End Date Syed Leong MD PCP - General 04/08/09 0 documented as of this encounter
--- OUTSIDE RECORDS SUMMARY | 2022-05-22 15:26 | XMS_ITS | Encounter Summary ---
:1980 Author Organization [facility] Address [address] [place] [address] Care Team Providers Name Role Phone Syed Leong MD Primary Care Provider Unavailable Reason for Visit Reason Comments URI sore throat, nasal discharge , cough for 3 weeks Encounter Details Date Type Department Care Team Description 01/06/[address] [facility] Syed Leong is, [facility] Family Medicine - MD Sonya (Primary D x) [place] [address] Social History Tobacco Use Types Packs/Day Years [...] Notes Syed Leong MD - 01/11/20119 EDT [facility] PROGRESS/FOLLOWUP NOTE - 01/06/2011 SUBJECTIVE: He has [...] or persistent symptoms. Electronically Signed by Syed Loeng MD 01/11/2011 20:49 Syed Leong MD - Syed Leong MD - [facility] Job ID: SM Doc ID: [id number] [facility] Doc ID: [id number] cc: taSyed ramirez MD - 01/06/2011 1914 EDT This office note has been dictated. documented in this encounter Plan of Treatment Not on filedocumented as of this encounter Visit Diagnoses Diagnosis Sinusitis, acute - Primary Acute sinusitis, unspecified documented in this encounter Care Teams Service Order Clerk Relationship Specialty Start Date End Date Syed Leong MD PCP - General 04/08/09 0 documented as of this encounter
--- OUTSIDE RECORDS SUMMARY | 2022-05-22 15:26 | XMS_ITS | Encounter Summary ---
:1980 Author Organization [facility] Address [address] [place] [address] Care Team Providers Name Role Phone Syed Leong MD Primary Care Provider Unavailable Encounter Details Date Type Department Care Team Description 11/10/2008 Before PRISM Converted [facility] - Tyler Berman Visit (Christine) Mapmanda conversion R, SUPRIYA-C [address] [place] [address] Social History Tobacco Use Types Packs/Day Years Used Date Never Assessed Sex Assigned at Date Recorded Male 03/11/2020 9:13 EDT documented as of this encounter Progress Notes Tyler Berman PA - 10/16/2009 0034 EST [facility] PROGRESS/FOLLOWUP NOTE - 11/10/2008 DULCE Muniz comes [...] PA-C Gus Crenshaw MD A Job ID [id number] A/JESSICA Doc ID [id number] cc: A Job ID [id number] Song/jessica Doc ID [id number] cc: documented in this encounter Plan of Treatment Not on filedocumented as of this encounter Visit Diagnoses Not on filedocumented in this encounter Care Teams Plant Controller Relationship Specialty Start Date End Date Syed Leong MD PCP - General 04/08/09 0 documented as of this encounter
--- OUTSIDE RECORDS SUMMARY | 2022-05-22 15:26 | XMS_ITS | Encounter Summary ---
:1980 Author Organization [facility] Address [address] [place] [address] Care Team Providers Name Role Phone Syed Leong MD Primary Care Provider Unavailable Reason for Visit Reason Onset Date Comments Medications Refill 12/27/2009 Encounter Details Date Type Department Care Team Description 12/27/2009 Refill [facility] Syed Leong MD Medications Refill [address] [address] Social History Tobacco Use Types Packs/Day Years Used Date Never Assessed Sex Assigned at Date Recorded Male 03/11/2020 9:13 EDT documented as of this encounter Plan of Treatment Not on filedocumented as of this encounter Visit Diagnoses Not on filedocumented in this encounter Care Teams Manager Of Transportation Relationship Specialty Start Date End Date Syed Leong MD PCP - General 04/08/09 0 documented as of this encounter
--- OUTSIDE RECORDS SUMMARY | 2022-05-22 15:26 | XMS_ITS | Encounter Summary ---
:1980 Author Organization [facility] Address [address] [place] [address] Care Team Providers Name Role Phone Syed Leong MD Primary Care Provider Unavailable Reason for Visit Reason Comments Pharyngitis has a sore throat and sinus congestion,has frequent sinus infections,has an appt with Dr Rhona billingsley [facility]. Encounter Details Date Type Department Care Team Description 11/12/2011 Office Visit [facility] Gus Crenshaw Sinus itis, acute Family Medicine - MD Yanni (Primary D x) [place] [address] Social History Tobacco Use Types Packs/Day Years [...] Date End Date fluticasone (FLONASE) 50 1 [place] by Nasal 1 Bottle 5 11/1108/27/2012 mcg/actuation [...] documented as of this encounter Care Teams Storage Management Architect Relationship Specialty Start Date End Date Syed Leong MD PCP - General 04/08/09 0 documented as of this encounter
--- OUTSIDE RECORDS SUMMARY | 2022-05-22 15:26 | XMS_ITS | Encounter Summary ---
:1980 Author Organization [facility] Address [address] [place] [address] Care Team Providers Name Role Phone Syed Leong MD Primary Care Provider Unavailable Reason for Visit Reason Onset Date Comments Other 07/10/2010 feeling worse again Encounter Details Date Type Department Care Team Description 07/10/2010 Telephone [facility] Syed Leong, Reji simmons (feeling worse Family Medicine - again) [address] [address] Social History Tobacco Use Types Packs/Day Years [...] or not all better. elephone Encounter - lM Parker - 07/10/2010 0827 EDT Initially felt [...] documented as of this encounter Care Teams Account Group Supervisor Relationship Specialty Start Date End Date Syed Leong MD PCP - General 04/08/09 0 documented as of this encounter
--- OUTSIDE RECORDS SUMMARY | 2022-05-22 15:26 | XMS_ITS | Encounter Summary ---
:1980 Author Organization [facility] Address [address] [place] [address] Care Team Providers Name Role Phone Syed Leong MD Primary Care Provider Unavailable Reason for Visit Reason Onset Date Comments Sinusitis 10/15/2009 Encounter Details Date Type Department Care Team Description 10/15/[address] [facility] Syed Leong MD Sinusitis Medicine - [address] [address] Social History Tobacco Use Types Packs/Day Years Used Date Never Assessed Sex Assigned at Date Recorded Male 03/11/2020 9:13 EDT documented as of this encounter Ordered Prescriptions Prescription Sig Dispensed Refills Start Date End Date amoxicillin (AMOXIL) 500 Take 2 Caps by 40 Cap 0 010 12/27/2009 mg capsule mouth 2 times daily. documented in this encounter Miscellaneous Notes Telephone Encounter - Tania Waldrop RN - 10/15/2009 1354 EST Medication called in elephone Encounter - Gaby Mosher - 10/15/2009 0811 EST Has been having symptoms of sinus infection. URI for a week or so, colored discharge from nose, sorethroat, little blood from nose too. These symptoms have been going on for 1 week and 4 days. No fever. Speak to his if he's not there or leave something on answering machine. Is it too early to start taking something? He works 9-5 and it's difficult to come in. documented in this encounter Plan of Treatment Not on filedocumented as of this encounter Visit Diagnoses Not on filedocumented in this encounter Care Teams Aircrewman Relationship Specialty Start Date End Date Syed Leong MD PCP - General 04/08/09 0 documented as of this encounter
--- OUTSIDE RECORDS SUMMARY | 2022-05-22 15:26 | XMS_ITS | Encounter Summary ---
:1980 Author Organization [facility] Address [address] [place] [address] Care Team Providers Name Role Phone Syed Leong MD Primary Care Provider Unavailable Reason for Referral Consult (Routine) - Closed Specialty Diagnoses / Procedures Referred By Contact Refer red To Contact Otolaryngology Diagnoses Vertigo Tinnitus Syed Leong MD Rose, James Gary, MD [address] [facility] [address] [place] [id number] [place] [address] [address] [place] [phone] Phone: Fax: Referral ID Status Reason Start Date Expiration Date Visits V isits Requested Authorized [id number] Closed Specialty 12/01/2010 1 1 Services Required Question Answer Reason for Request: vertigo and tinnitus Comments ENT/audiology Reason for Visit Reason Comments Dizziness Encounter Details Date Type Department Care Team Description 12/01/2010 Office Visit [facility] Syed Leong MD Vertigo; Medicine [facility] Tinnitus [address] [facility] [address] [place] [address] Social History Tobacco Use Types Packs/Day Years [...] Syed Leong MD - 12/08/2010 0653 EDT [facility] PROGRESS/FOLLOWUP NOTE - 12/01/2010 SUBJECTIVE: He is [...] - SHARON Job ID: SM Doc ID: [id number] Ext Doc ID: [id number] cc: Syed Quan MD - 12/01/2010 1712 [...] documented as of this encounter Care Teams Mechanical Engineering Professor Relationship Specialty Start Date End Date Syed Leong MD PCP - General 04/08/09 0 documented as of this encounter
--- OUTSIDE RECORDS SUMMARY | 2022-05-22 15:26 | XMS_ITS | Encounter Summary ---
:1980 Author Organization [facility] Address [address] [place] [address] Care Team Providers Name Role Phone Syed Leong MD Primary Care Provider Unavailable Reason for Visit Reason Onset Date Comments Sinusitis 01/16/2011 Encounter Details Date Type Department Care Team Description 01/16/2011 Telephone [facility] Syed Leong MD Sinusitis Medicine - [address] [address] Social History Tobacco Use Types Packs/Day Years [...] unspecified documented in this encounter Care Teams Teacher Dramatics Relationship Specialty Start Date End Date Syed Leong MD PCP - General 04/08/09 0 documented as of this encounter
--- OUTSIDE RECORDS SUMMARY | 2022-05-22 15:26 | XMS_ITS | Encounter Summary ---
:[address] [facility] Address [address] [place] [address] Care Team Providers Name Role Phone Syed Leong MD Primary Care Provider Unavailable Reason for Visit Reason Onset Date Comments Sinusitis 07/20/2011 Encounter Details Date Type Department Care Team Description 07/20/2011 Telephone [facility] Ameena Barragan RN Sinusitis Medicine - [address] [address] Social History Tobacco Use Types Packs/Day Years [...] documented as of this encounter Care Teams Motor Scooter Mechanic Relationship Specialty Start Date End Date Syed Leong MD PCP - General 04/08/09 0 documented as of this encounter
--- OUTSIDE RECORDS SUMMARY | 2022-05-22 15:26 | XMS_ITS | Encounter Summary ---
:1980 Author Organization [facility] Address [address] [place] [address] Care Team Providers Name Role Phone Syed Leong MD Primary Care Provider Unavailable Reason for Visit Reason Comments Nasal Congestion runny nose for 2 weeks produ cing dark drainage, no fever, +sore throat, no cough, no n/v/d-- child has similar sx's Rash r forearm with sm red itchy areas for 1 week Encounter Details Date Type Department Care Team Description 03/25/2010 Office Visit [facility] Sogn Winters (upper respiratory infection); Family Medicine - MD Tran [address] [place] [phone] (Wo rk) Social History Tobacco Use Types [...] Notes Song Winters - 04/19/2010 1122 EDT [facility] PROGRESS/FOLLOWUP NOTE - 03/25/2010 REASON FOR VISIT: [...] cream; however, he is content to use jfmm-npk-geofznw cortisone cream. He will follow up if not improving. The patient was verbally educated on rash. There were no barriers to learning and the patient verbalized understanding. Electronically Signed by Snog Winters MD 04/19/2010 11:22 Song Winters MD - Song Winters MD - JOHANNA Job ID: SM Doc ID: [id number] Ext Doc ID: [id number] cc: Song Ann - 03/25/2010 2213 EDT This office note has been dictated. [...] documented as of this encounter Care Teams Sandwich Hand Relationship Specialty Start Date End Date Syed Leong MD PCP - General 04/08/09 0 documented as of this encounter
--- OUTSIDE RECORDS SUMMARY | 2022-05-22 15:26 | XMS_ITS | Encounter Summary ---
:1980 Author Organization [facility] Address [address] [place] [address] Care Team Providers Name Role Phone Syed Leong MD Primary Care Provider Unavailable Reason for Visit Reason Onset Date Comments Appointment Related 02/04/2011 Encounter Details Date Type Department Care Team Description 02/04/2011 Telephone [facility] ALESSANDRO - Saurabh Melgoza MD Appointment Related [place] 130 [facility] [address] [facility] [address] [place] [address] [place] [phone] (Wo rk) Social History Tobacco Use [...] have this done. There's three options: [facility], [place], and [place] open mri. elephone Encounter - Naif Alvarado - 02/04/2011 1132 EDT I called and left message to call back because pt could go through with MRI on 02/03/11. He was givensedatives for the mri, but could not go through with it. I want to know if he wants to reschedule this as on Open MRI. This can be done in [place] ([place] [facility]) or [facility]. I have cancelled his follow up visit with Dr. Melgoza. documented in this encounter Plan of Treatment Not on filedocumented as of this encounter Visit Diagnoses Not on filedocumented in this encounter Care Teams Environmental Engineering Intern Relationship Specialty Start Date End Date Syed Leong MD PCP - General 04/08/09 0 documented as of this encounter
--- OUTSIDE RECORDS SUMMARY | 2022-05-22 15:26 | XMS_ITS | Encounter Summary ---
:1980 Author Organization [facility] Address [address] [place] [address] Care Team Providers Name Role Phone Syed Leong MD Primary Care Provider Unavailable Reason for Visit Reason Onset Date Comments Sinusitis 11/21/2011 Encounter Details Date Type Department Care Team Description 11/21/2011 Telephone [facility] Syed Leong MD Sinusitis Medicine - [address] [place] [address] Social History Tobacco Use Types Packs/Day Years [...] filedocumented in this encounter Care Teams Health Data Analyst Relationship Specialty Start Date End Date Syed Leong MD PCP - General 04/08/09 0 documented as of this encounter
--- OUTSIDE RECORDS SUMMARY | 2022-05-22 15:26 | XMS_ITS | Encounter Summary ---
:1980 Author Organization [facility] Address [address] [place] [address] Care Team Providers Name Role Phone Syed Leong MD Primary Care Provider Unavailable Reason for Visit Reason Onset Date Comments Appointment Related 01/16/2011 Encounter Details Date Type Department Care Team Description 01/16/2011 Telephone [facility] ALESSANDRO - Saurabh Melgoza MD Appointment Related [place] [address] [place] [address] [place] [phone] (Wo rk) Social History Tobacco Use [...] on filedocumented in this encounter Care Teams Industrial Radiographer Relationship Specialty Start Date End Date Syed Leong MD PCP - General 04/08/09 0 documented as of this encounter
--- OUTSIDE RECORDS SUMMARY | 2022-05-22 15:26 | XMS_ITS | Encounter Summary ---
:1980 Author Organization [facility] Address [address] [place] [address] Care Team Providers Name Role Phone Syed Leong MD Primary Care Provider Unavailable Reason for Visit Reason Onset Date Comments Update 10/07/2012 Encounter Details Date Type Department Care Team Description 10/07/2012 Telephone [facility] Syed Leong MD Update Medicine - [address] [address] Social History Tobacco Use Types Packs/Day Years [...] on filedocumented in this encounter Care Teams Convex Grinder Relationship Specialty Start Date End Date Syed Leong MD PCP - General 04/08/09 0 documented as of this encounter
--- OUTSIDE RECORDS SUMMARY | 2022-05-22 15:26 | XMS_ITS | Encounter Summary ---
:1980 Author Organization [facility] Address [address] [place] [address] Care Team Providers Name Role Phone Syed Leong MD Primary Care Provider Unavailable Reason for Referral Radiology Services (Routine) - Closed Specialty Diagnoses / Procedures Referred By Contact Refer red To Contact Diagnoses Unspecified sinusitis (chronic) Deviated nasal septum Christopher Melgoza MD Procedures CT SINUSES [address] [facility] [address] [place] [phone] Referral ID Status Reason Start Date Expiration Date Visits Requ ested Visits Authorized [id number] Closed 11/24/2011 1 1 Reason for Visit Reason Comments Sinusitis has been having sinus infect ions for the past few years, has been treated with antibiotics many times. wakes up with sore throat most days. Not a lot of H/a gets nasal congestion and sore throat. Encounter Details Date Type Department Care Team Description 11/24/[address] Office [address] [facility] ENT Unknown, Provider, Unspecified sinusitis (chronic); - Christopher Culver MD [address] [facility] [address] [place] [phone] Deviated nasal septum [address] [place] [address] Social History Tobacco Use Types [...] Progress Notes Christopher Melgoza MD - 11/24/2011 7192 EDT This is a consult from Dr [...] septum documented in this encounter Care Teams Engineering Patternmaker Relationship Specialty Start Date End Date Syed Leong MD PCP - General 04/08/09 0 documented as of this encounter
--- OUTSIDE RECORDS SUMMARY | 2022-05-22 15:26 | XMS_ITS | Encounter Summary ---
:1980 Author Organization [facility] Address [address] [place] [address] Care Team Providers Name Role Phone Syed Leong MD Primary Care Provider Unavailable Encounter Details Date Type Department Care Team Description 10/07/2006 Before PRISM Converted [facility] - Syed Leong, Visit ([place]) Mapmanda conversion MD [address] [place] [address] Social History Tobacco Use Types Packs/Day Years Used Date Never Assessed Sex Assigned at Date Recorded Male 03/11/2020 9:13 EDT documented as of this encounter Progress Notes Syed Leong MD - 09/29/[address] [facility] PROGRESS/FOLLOWUP NOTE - 10/07/2006 SUBJECTIVE: He is back about sciatica. He was seen here, a month ago with sciatica symptoms on the right side. A Medrol dose pack was used and then switched over to Naprosyn. It was helping, but it caused some swelling of his tonsil. He stopped it and then restarted it and the tonsil was swollen againwith a sore throat. He has not been back on it since. The pain did eventually go away. Two weeks ago, he slipped at work and the pain started the next day. It is in the right buttock and occasionally, off and on, goes into the right leg. There is minimal tingling. It hurts at night, at the end of the day, it hurts getting up out of chairs. There is no weakness. Without insurance, he is reluctant to miss work and to pay extra payments for visits to physical therapy. OBJECTIVE: Normal lower extremity reflexes. Normal strength. Negative straight leg raise bilaterally. Nontender back. Negative piriformis exam. ASSESSMENT: I think this is muscular strain with some radicular symptoms. I am not sure whether the symptoms with the Naprosyn were actually a Naprosyn allergy. It may very well have been he had a pharyngitis, but I will try a different antiinflammatory in a different class. PLAN 1. Sulindac 150 mg one b.i.d., #30 with refills. 2. Heat. 3. Suggested physical therapy. Signed by Syed Leong MD 10/14/2006 21:06 Marcello Bennett MD - Syed Leong MD Song trinidad Job ID: [id number] Document ID: [id number] cc: \* MERGEFORMAT D: - Syed Leong MD Song trinidad Job ID: [id number] Document ID: [id number] cc: documented in this encounter Plan of Treatment Not on filedocumented as of this encounter Visit Diagnoses Not on filedocumented in this encounter Care Teams Unit Operator Relationship Specialty Start Date End Date Syed Leong MD PCP - General 04/08/09 0 documented as of this encounter
--- OUTSIDE RECORDS SUMMARY | 2022-05-22 15:26 | XMS_ITS | Encounter Summary ---
:1980 Author Organization [facility] Address [address] [place] [address] Care Team Providers Name Role Phone Syed Leong MD Primary Care Provider Unavailable Encounter Details Date Type Department Care Team Description 06/24/2007 Before PRISM Converted [facility] - Syed Leong, Visit ([place]) Maple conversion MD [address] [place] [address] Social History Tobacco Use Types Packs/Day Years Used Date Never Assessed Sex Assigned at Date Recorded Male 03/11/2020 9:13 EDT documented as of this encounter Progress Notes Syed Leong MD - 07/24/2009 1447 EST [facility] PROGRESS/FOLLOWUP NOTE - 06/24/2007 SUBJECTIVE He is here with left ear ringing for at least two months. It is constant. He has noticed some loss of hearing in that ear. 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 He has [...] 13:26 Syed Leong MD P Job ID [id number] T: 10:13 A/jg Doc ID [id number] cc: P Job ID [id number] A/jg Doc ID [id number] cc: documented in this encounter Plan of Treatment Not on filedocumented as of this encounter Visit Diagnoses Not on filedocumented in this encounter Care Teams Tugboat Dispatcher Relationship Specialty Start Date End Date Syed Leong MD PCP - General 04/08/09 0 documented as of this encounter
--- OUTSIDE RECORDS SUMMARY | 2022-05-22 15:26 | XMS_ITS | Encounter Summary ---
:1980 Author Organization [facility] Address [address] [place] [address] Care Team Providers Name Role Phone Syed Leong MD Primary Care Provider Unavailable Reason for Visit Reason Onset Date Comments Other 12/26/2009 Encounter Details Date Type Department Care Team Description 12/26/2009 Telephone [facility] Syed Leong MD Other Medicine - [address] [address] Social History Tobacco Use Types Packs/Day Years Used Date Never Assessed Sex Assigned at Date Recorded Male 03/11/2020 9:13 EDT documented as of this encounter Miscellaneous Notes Telephone Encounter - Dona Stewart - 12/26/2009 1210 EDT Please call pt s w/answer [phone] He had an episode couple days ago, [...] on filedocumented in this encounter Care Teams Vest Backer Relationship Specialty Start Date End Date Syed Leong MD PCP - General 04/08/09 0 documented as of this encounter
--- OUTSIDE RECORDS SUMMARY | 2022-05-22 15:26 | XMS_ITS | Encounter Summary ---
:1980 Author Organization [facility] Address [address] [place] [address] Care Team Providers Name Role Phone Syed Leong MD Primary Care Provider Unavailable Reason for Referral Consult (Routine) - Closed Specialty Diagnoses / Procedures Referred By Contact Refer red To Contact Diagnoses Recurrent sinusitis Nette Arteaga MD 130 [facility] [address] [place] [address] Referral ID Status Reason Start Date Expiration Date Visits V isits Requested Authorized [id number] Closed Specialty 10/14/2011 1 1 Services Required [...] sinusitis Nette Arteaga MD Procedures CT SINUSES [address] [place] [address] [address] [place] [address] Referral ID Status Reason Start Date Expiration Date Visits Requ ested Visits Authorized [id number] Closed 10/14/2011 1 1 Reason for Visit Reason Comments Sinusitis x 3 weeks Encounter Details Date Type Department Care Team Description 10/14/2011 Office Visit [facility] Nette Arteaga nt sinusitis Family Medicine - MD Gigi (Primary D x) [address] [place] [address] Social History Tobacco Use Types Packs/Day Years [...] symptoms, which suggest sinusitis but it could insole lip turner there is no underlying infection. PLAN: [...] documented as of this encounter Care Teams Education Research Analyst Relationship Specialty Start Date End Date Syed Leong MD PCP - General 04/08/09 0 documented as of this encounter
--- OUTSIDE RECORDS SUMMARY | 2022-05-22 15:26 | XMS_ITS | Encounter Summary ---
:1980 Author Organization [facility] Address [address] [place] [address] Care Team Providers Name Role Phone Syed Leong MD Primary Care Provider Unavailable Reason for Visit Reason Comments URI Encounter Details Date Type Department Care Team Description 08/27/2012 Office Visit [facility] Nette Arteaga is, acute Family Medicine - MD Gigi (Primary D x) [address] [address] Social History Tobacco Use Types Packs/Day Years [...] 2 times daily. fluticasone (FLONASE) 50 [address] [place] by Nasal Therapy completed 012 08/27/2012 mcg/actuation nasal spray route daily. documented as of this encounter Care Teams Supervisor Continuous Weld Pipe Mill Relationship Specialty Start Date End Date Syed Leong MD PCP - General 04/08/09 0 documented as of this encounter
--- OUTSIDE RECORDS SUMMARY | 2022-05-22 15:26 | XMS_ITS | Encounter Summary ---
:1980 Author Organization [facility] Address [address] [place] [address] Care Team Providers Name Role Phone Syed Leong MD Primary Care Provider Unavailable Reason for Visit Reason Onset Date Comments Other 01/03/2010 Encounter Details Date Type Department Care Team Description 01/03/2010 Telephone [facility] Syed Leong MD Other Medicine - [address] [address] Social History Tobacco Use Types Packs/Day Years [...] filedocumented in this encounter Care Teams Clock Maker Relationship Specialty Start Date End Date Syed Leong MD PCP - General 04/08/09 0 documented as of this encounter
--- OUTSIDE RECORDS SUMMARY | 2022-05-22 15:26 | XMS_ITS | Encounter Summary ---
:1980 Author Organization [facility] Address [address] [place] [address] Care Team Providers Name Role Phone Syed Leong MD Primary Care Provider Unavailable Reason for Visit Reason Onset Date Comments Sinusitis 01/11/2011 amoxicillin not work ing, changing abx Encounter Details Date Type Department Care Team Description 01/11/2011 Orders Only [facility] Syed Leong is, acute Family Medicine - MD Sonya (Primary D x) [address] [address] Social History Tobacco Use Types Packs/Day Years [...] documented as of this encounter Care Teams Informatica Mdm Developer Relationship Specialty Start Date End Date Syed Leong MD PCP - General 04/08/09 7 0 documented as of this encounter
--- OUTSIDE RECORDS SUMMARY | 2022-05-22 15:26 | XMS_ITS | Encounter Summary ---
:1980 Author Organization [facility] Address [address] [place] [address] Care Team Providers Name Role Phone Syed Leong MD Primary Care Provider Unavailable Reason for Visit Reason Onset Date Comments URI 06/19/2010 Encounter Details Date Type Department Care Team Description 06/19/2010 Telephone [facility] Syed Leong MD [address] [address] Social History Tobacco Use Types Packs/Day Years [...] throat What shoujld they do? riky called [phone] documented in this encounter Plan of Treatment Not on filedocumented as of this encounter Visit Diagnoses Not on filedocumented in this encounter Care Teams Bilingual Sales Assistant Relationship Specialty Start Date End Date Syed Lenog MD PCP - General 04/08/09 0 documented as of this encounter
--- OUTSIDE RECORDS SUMMARY | 2022-05-22 15:26 | XMS_ITS | Encounter Summary ---
:1980 Author Organization [facility] Address [address] [place] [address] Care Team Providers Name Role Phone Syed Leong MD Primary Care Provider Unavailable Reason for Visit Reason Onset Date Comments URI 03/27/2010 Encounter Details Date Type Department Care Team Description 03/27/2010 Telephone [facility] Syed Leong MD [address] [address] Social History Tobacco Use Types Packs/Day Years [...] having to come back in? Spouse called [phone] documented in this encounter Plan of Treatment Not on filedocumented as of this encounter Visit Diagnoses Not on filedocumented in this encounter Care Teams Pin Maker Relationship Specialty Start Date End Date Syed Leong MD PCP - General 04/08/09 0 documented as of this encounter
--- OUTSIDE RECORDS SUMMARY | 2022-05-22 15:26 | XMS_ITS | Encounter Summary ---
:[address] [facility] Address [address] [place] [address] Care Team Providers Name Role Phone Syed Leong MD Primary Care Provider Unavailable Reason for Visit Reason Onset Date Comments Advice Only 06/24/2010 Encounter Details Date Type Department Care Team Description 06/24/2010 Telephone [facility] Syed Leong MD Advice Only Medicine - [address] [address] Social History Tobacco Use Types Packs/Day Years [...] elephone Encounter - Aisha Torres - 06/24/2010 1651 EDT Patient is calling to say he [...] documented as of this encounter Care Teams Binder Layer Relationship Specialty Start Date End Date ySed Leong MD PCP - General 04/08/09 0 documented as of this encounter
--- OUTSIDE RECORDS SUMMARY | 2022-05-22 15:26 | XMS_ITS | Encounter Summary ---
:1980 Author Organization [facility] Address [address] [place] [address] Care Team Providers Name Role Phone Syed Leong MD Primary Care Provider Unavailable Reason for Visit Reason Onset Date Comments Appointment Related 2011 Encounter Details Date Type Department Care Team Description 2011 Telephone [facility] ALESSANDRO - Saurabh Melgoza MD Appointment Related [place] [address] [place] [address] [place], [place] [phone] (Wo rk) Social History Tobacco Use [...] 12/15/2011 @1:15 checking in with registration with [facility] 1:00p FU: 12/22/2011 @ 09a here at the office. documented in this encounter Plan of Treatment Not on filedocumented as of this encounter Visit Diagnoses Not on filedocumented in this encounter Care Teams Packing Room Inspector Relationship Specialty Start Date End Date Syed Leong MD PCP - General 04/08/09 0 documented as of this encounter
--- OUTSIDE RECORDS SUMMARY | 2022-05-22 15:26 | XMS_ITS | Encounter Summary ---
:1980 Author Organization [facility] Address [address] [place] [address] Care Team Providers Name Role Phone Syed Leong MD Primary Care Provider Unavailable Reason for Visit Reason Onset Date Comments Cough 07/03/2010 Encounter Details Date Type Department Care Team Description 07/03/2010 Telephone [facility] Syed Leong MD Cough Medicine - [address] [address] Social History Tobacco Use Types Packs/Day Years [...] on filedocumented in this encounter Care Teams Evaluation Engineer Relationship Specialty Start Date End Date Syed Leong MD PCP - General 04/08/09 0 documented as of this encounter
--- OUTSIDE RECORDS SUMMARY | 2022-05-22 15:26 | XMS_ITS | Encounter Summary ---
:1980 Author Organization [facility] Address [address] [place] [address] Care Team Providers Name Role Phone Syed Leong MD Primary Care Provider Unavailable Encounter Details Date Type Department Care Team Description 03/25/2010 Abstract Used for ABSTRACTING Data Syed Leong MD [phone] Social History Tobacco Use Types Packs/Day Years [...] ORAL) added in this encounter Care Teams Medical Secretary Receptionist Relationship Specialty Start Date End Date Syed Leong MD PCP - General 04/08/09 0 documented as of this encounter
--- OUTSIDE RECORDS SUMMARY | 2022-05-22 15:26 | XMS_ITS | Encounter Summary ---
:[address] [facility] Address [address] [place] [address] Care Team Providers Name Role Phone Syed Leong MD Primary Care Provider Unavailable Reason for Visit Reason Onset Date Comments Other 01/28/2011 Encounter Details Date Type Department Care Team Description 01/28/2011 Telephone [facility] - Saurabh Melgoza MD Other [place] [address] [place], [place] [phone] [place] [address] [phone] (Wo rk) Social History Tobacco Use Types [...] on filedocumented in this encounter Care Teams Peach Grower Relationship Specialty Start Date End Date Syed Leong MD PCP - General 04/08/09 0 documented as of this encounter
--- OUTSIDE RECORDS SUMMARY | 2022-05-22 15:26 | XMS_ITS | Encounter Summary ---
:1980 Author Organization [facility] Address [address] [place] [address] Care Team Providers Name Role Phone Syed Leong MD Primary Care Provider Unavailable Encounter Details Date Type Department Care Team Description 05/21/2006 Before PRISM Converted [facility] - Syed Leong, Visit ([place]) Mapmanda conversion MD [address] [place] [address] Social History Tobacco Use Types Packs/Day Years Used Date Never Assessed Sex Assigned at Date Recorded Male 03/11/2020 9:13 EDT documented as of this encounter Progress Notes Syed Leong MD - 09/19/2009 0834 EST [facility] PROGRESS/FOLLOWUP NOTE - 05/21/2006 S:has had occasional [...] Leong MD P - lt Job ID: [id number] Document ID: [id number] cc: documented in this encounter Plan of Treatment Not on filedocumented as of this encounter Visit Diagnoses Not on filedocumented in this encounter Care Teams Litigation Assistant Relationship Specialty Start Date End Date Syed Leong MD PCP - General 04/08/09 0 documented as of this encounter
--- OUTSIDE RECORDS SUMMARY | 2022-05-22 15:26 | XMS_ITS | Encounter Summary ---
:1980 Author Organization [facility] Address [address] [place] [address] Care Team Providers Name Role Phone Syed Leong MD Primary Care Provider Unavailable Reason for Referral (Routine) - Closed Specialty Diagnoses / Procedures Referred By Contact Refer red To Contact Diagnoses Weakness Syed Leong MD Procedures GLUCOSE TOLERANCE, 5HR [address] [facility] [address] [address] Referral ID Status Reason Start Date Expiration Date Visits Requ ested Visits Authorized [id number] Closed 12/19/2009 1 1 Encounter Details Date Type Department Care Team Description 12/19/2009 Orders Only [facility] Jennifer Waldrop (Primary Dx) Family Medicine - MICHAEL [place] [address] [address] Social History Tobacco Use Types Packs/Day Years [...] fatigue documented in this encounter Care Teams Supervisor Metal Hanging Relationship Specialty Start Date End Date Syed Leong MD PCP - General 04/08/09 0 documented as of this encounter
--- OUTSIDE RECORDS SUMMARY | 2022-05-22 15:26 | XMS_ITS | Encounter Summary ---
:1980 Author Organization [facility] Address [address] [place] [address] Care Team Providers Name Role Phone Syed Leong MD Primary Care Provider Unavailable Encounter Details Date Type Department Care Team Description 08/24/2007 Before PRISM Converted [facility] - Mark Melgoza, Visit ([place]) Christine soto MD [address] [place] [id number] [place] [address] [address] [place] [phone] Social History Tobacco Use Types Packs/Day Years Used Date Never Assessed Sex Assigned at Date Recorded Male 03/11/2020 9:13 EDT documented as of this encounter Consult Notes Christopher Melgoza MD - 07/21/20092002 EST [facility] - 08/24/2007 Syed Leong MD [address] [place] [id number] Leong: Chief complaint: Tinnitus. History [...] high frequency noise induced hearing loss. Speech sales receptionist thresholds are 10 decibels on the [...] Christopher Melgoza MD - duarte Job ID: [id number] Doc ID: [id number] cc: Syed Leong MD documented in this encounter Plan of Treatment Not on filedocumented as of this encounter Visit Diagnoses Not on filedocumented in this encounter Care Teams Orthopedic Shoe Maker Relationship Specialty Start Date End Date Syed Leong MD PCP - General 04/08/09 0 documented as of this encounter
--- OUTSIDE RECORDS SUMMARY | 2022-05-22 15:26 | XMS_ITS | Encounter Summary ---
:1980 Author Organization [facility] Address [address] [place] [address] Care Team Providers Name Role Phone Syed Leong MD Primary Care Provider Unavailable Reason for Visit Reason Comments Fever fever/chills x 10 days--has sore throat, cough is having generalized abd. discomfort--has taken antibi otics x 2 without relief of sx's/fever--spoke with DR. Leong is on 2 antibiotic Encounter Details Date Type Department Care Team Description 06/26/2010 Office Visit [facility] Mayo Peter Nasal congestion Family Medicine - MD Yanni (Primary Dx) [place] [address] [place], [place] [address] [phone] [place], [place] [address] Social History Tobacco Use Types Packs/Day Years Used Date Former Smoker Quit: 03/25/20 09 Sex Assigned at Date Recorded Male 03/11/2020 9:13 EDT documented as of this encounter Last Filed Vital Signs Vital Sign Reading Time Taken Comments Blood Pressure 135/85 06/26/2010 1531 EDT Pulse 78 06/26/2010 1531 EDT Temperature 36.7 ??C (98.1 ??F) 06/26/2010 1531 EDT Respiratory Rate 18 06/26/2010 1531 EDT Oxygen Saturation - - Inhaled Oxygen Concentration - - Weight 83.9 kg (185 lb) 06/26/2010 1531 EDT Height - - Body Mass Index - - documented in this encounter Progress Notes Mayo Peter MD - 06/26/2010 0715 EDT Subjective: Patient ID: Flavio Hamm is an 29 y.o. male. Chief Complaint Patient presents with ??? Fever fever/chills x 10 days--has sore throat, cough is having generalized abd. discomfort--has taken antibiotics x 2 without relief of sx's/fever--spoke with DR. Leong is on 2 of second antibiotic HPI Comments: FEVERS - using scan latter day thermometer but not reliebale, none above 101. Started with cold symptom,routine stuff. Sinus infection - did amox after 2 weeks of sxs, no help with amox. Now on Cefuroxime x 1-2 days. Has chills, episodes of weakness/fatigue. There is no problem list on file for this patient. Past Medical History Diagnosis Date ??? Hearing loss Left high frequency with assoc. Tinnitus Current outpatient prescriptions ordered prior to encounter Medication Sig Dispense Refill ??? cefUROXime (CEFTIN) 250 mg tablet Take 1 Tab by mouth 2 times daily. 20 Tab 0 ??? OMEPRAZOLE (PRILOSEC ORAL) Take by mouth daily. Allergies Allergen Reactions ??? Naproxen Other (See Comments) Throat swelled 08/18 Social History Substance Use Topics ??? Tobacco Use: Quit Quit date: 03/25/2009 ??? Alcohol Use: Review of Systems Constitutional: Positive for fever (subjectively, no documented fevers). - See HPI Objective: BP 135/85 Pulse 78 Temp(Src) 36.7 ??C (98.1 ??F) (Oral) Resp 18 Wt 83.915 kg (185 lb) Physical Exam Constitutional: He is oriented to person, place, and time. He appears well- developed and well-nourished. Non-toxic appearance. No distress. HENT: Head: Head is without right periorbital erythema and without left periorbital erythema. Right Ear: Tympanic membrane and ear canal normal. Left Ear: Tympanic membrane and ear canal normal. Nose: No rhinorrhea. Mouth/Throat: Uvula is midline, oropharynx is clear and moist and mucous membranes are normal. No oropharyngeal exudate (mild posterior cobblestoning c/w postnasal drip), posterior oropharyngeal edema or posterior oropharyngeal erythema. Eyes: Conjunctivae are normal. Neck: Neck supple. Cardiovascular: Regular rhythm. Pulmonary/Chest: Effort normal and breath sounds normal. Lymphadenopathy: He has no cervical adenopathy. Neurological: He is alert and oriented to person, place, and time. Gait normal. GCS eye subscore is 4. GCS verbal subscore is 5. GCS motor subscore is 6. Skin: Skin is warm and dry. No rash noted. Psychiatric: He has a normal mood and affect. His speech is normal and behavior is normal. Judgment normal. Assessment: Plan: Flavio was seen today for fever. Diagnoses and associated orders for this visit: Nasal congestion May have some seasonal allergies. Maybe viral. Check temperature with thermometer and call if having fevers > 100.5. Could try some OTC allergy meds. ? Antibiotics causing some GI symptoms. F/U with PCP as needed. documented in this encounter Plan of Treatment Not on filedocumented as of this encounter Visit Diagnoses Diagnosis Nasal congestion - Primary Other diseases of nasal cavity and sinus es documented in this encounter Care Teams Flat Folder Relationship Specialty Start Date End Date Syed Leong MD PCP - General 04/08/09 0 documented as of this encounter
--- OUTSIDE RECORDS SUMMARY | 2022-05-22 15:26 | XMS_ITS | Encounter Summary ---
:1980 Author Organization [facility] Address [address] [place] [address] Care Team Providers Name Role Phone Syed Leong MD Primary Care Provider Unavailable Reason for Visit Reason Comments Sinusitis amoxicillin was not effectiv e -had keflex at home and it worked great and got better but only had a pa rtial dose -sick now Encounter Details Date Type Department Care Team Description 08/04/2011 Office Visit [facility] Syed Leong is, acute Family Medicine - MD Sonya (Primary D x) [place] [address] Social History Tobacco Use Types Packs/Day Years [...] Progress Notes Syed Leong MD - 08/04/2011 1997 EST Flavio is here because of a [...] documented as of this encounter Care Teams Switchgear Repairer Relationship Specialty Start Date End Date Syed Leong MD PCP - General 04/08/09 0 documented as of this encounter
== END ==
PROVIDERS: PCP Family Medicine; Visit Provider Family Medicine
DX: S83.212A Bucket-handle tear of medial meniscus, current injury, left knee, initial encounter (principal); X58.XXXA Exposure to other specified factors, initial encounter
CPT/HCPCS: 73721

== ENCOUNTER 2022-06-26 16:33 | Emergency (ER) | payer MEDICAID, SELFPAY ==
[2022-06-26 16:41] VITALS: BP 124/97; PULSE 87; RESP 18; TEMP 36.6; O2SAT 99
--- NOTE | 2022-06-26 17:05 | ED.GENADUL_ITS ---
Discharge Plan Disposition Patient Disposition: HOME Condition: Good Discharge Details Clinical Impression: Abrasion, nose with infection, Headache Primary Care Provider: Kobe Richardson ED Provider: Alena Mccormick Home Meds and New Rx's Prescriptions: Continued testosterone 20.25 mg/1.25 gram (1.62 %) gel in metered-dose pump 1 pump topical DAILY Qty: 75 5RF Rx Instructions: apply 1 pump amount over max area of ONE upper arm and shoulder vitamin K2 40 mcg tablet 40 mcg PO DAILY ergocalciferol (vitamin D2) 50 mcg (2,000 unit) capsule 50 mcg PO DAILY omeprazole 20 mg capsule,delayed release(DR/EC) 1 cap PO DAILY mirtazapine 7.5 mg tablet 1 tab PO HS PRN (Reason: Sleep) Label Comments: TAKE ONE TABLET BY MOUTH AT BEDTIME NEEDED FOR SLEEP Discharge Instructions Instructions: Abrasion (ED), General Headache (ED) Additional Instructions: Your imaging and labs are reassuring here today. Please encourage hydration. Please continue with Tylenol and ibuprofen as needed for discomfort. Please begin the nystatin ointment into your nose twice a day. Please apply a thin layer with a Q-tip. We will call you with any abnormal culture results. The prescription for this has been sent to your pharmacy. If you develop recurrence of your significant headache, fever/chills, rash or other new/worsening symptoms to seek care urgently with again. Otherwise, please follow-up with your primary care in the next 1-2 weeks for reevaluation Referrals: Kobe Richardson [Primary Care Provider] - Discharge Data Discharge Date/Time-TO BE ENTERED AT DEPARTURE: 06/26/22 20:57 Medical Decision Making Patient is a pleasant 41-year-old male, accompanied by his , with chief complaint of headache, nasal source, general malaise. He reports that about 4 weeks ago he developed a URI. Well COVID symptoms have resolved such as cough and fevers, he has begun noticing wounds in his naris about 1 week ago. He does report that he has a known penile yeast infection is questioning if this may have been a contaminant of that. Has been applying Vaseline to this. States that he is also been having a left-sided headache that has been severe. States that this typically is where he has his headache and it radiates up from the neck across the left side of his head. However, this headache is much worse than the headaches he has had in the past and has not responded to his typical regimens. 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 Since then, patient has had cranial nerve VII deficit, more prone to left-sided headache and reports TBI symptoms. He denies any rash. No shortness of breath or chest pain. Denies any nausea or vomiting. On exam, patient appears uncomfortable but not acutely toxic. 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 This has been present since his previous surgery. No evidence of acute CVA based on their report of his chronic deficits but still on ddx. He has a rash intranasally. This does correlate with his concern for yeast infection from an improving penile yeast infection. Swab sent for culture but will begin on tpical treatment. He does not have any pain with percussion over the sinuses. No visual changes or injection to discuss intraocular source. He has no nuchal rigidity, no fever/chills to suggests [employer] infection, Concerned for possible return of his previous acoustic neuroma with complication. He has not had recent reevaluation or routine f/u for this. He did not have sudden onset to suggest ICH. Will treat pain with APAP, NSAID, Compazine and Benadryl. Labs reviewed, no signficant abnormality. Slight elevation of the AST but this does not fit clinically nor are the other labs sugesting a severe underlying pathology at this time. Will have him discuss further with PCP in the future. Patient began to feel anxious, likely the Compazine. Another 25 benadryl given and patient had full resolution of this symptom and his SINCLAIR. Imaging reviewed by radiologist: FINDINGS: Brain: No intracranial hemorrhage. No midline shift. No significant white matter hypoattenuation. No enhancing mass. No subdural collections. No pneumocephalus. Cerebral ventricles: No ventriculomegaly. Paranasal sinuses: Visualized sinuses are unremarkable. No fluid levels. Mastoid air cells: Visualized mastoid air cells are well aerated. Please see discussion below. Bones/joints: Left temporal craniotomy noted. No complications observed. No skull fractures. Soft tissues: Unremarkable. IMPRESSION: Negative for intracranial hemorrhage or other acute intracranial abnormality FINDINGS: Orbital cavities: Orbits are normal. Globes are unremarkable. Bones/joints: No acute fracture. Left temporal craniotomy again noted. Partial resection of the left petrous temporal bone is observed, with postoperative fat packing material in place of the bone. This abuts the internal auditory canal, which is otherwise normal in width. There is no solid enhancing mass at the site. The cerebellar pontine angles appear normal and unremarkable. The mastoid air cells are clear and well pneumatized. There is no bony erosion or destructive change. Paranasal sinuses: Normal. No air-fluid levels. Soft tissues: Unremarkable. Vasculature: Internal jugular veins are patent bilaterally. Visualized portions of the internal carotid arteries appear normal. IMPRESSION: No acute findings. Postoperative changes from left acoustic neuroma resection. No complications observed. No evidence of recurrent mass. No evidence of osteomyelitis. Discussed with patient. His SINCLAIR has completely resolved. 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 He is requesting d/c to home and I feel this is appropriate. Again, no evidence of new neuro deficit to suggest CVA, no evidence to suggest [employer] infection. Strict return precautions discussed. We discussed continued management if his SINCLAIR recurs. I encouraged close f/u with PCP in one week. All of his questions and concerns were addressed, he is in agreement with this plan. HPI General Date/Time Provider Initiated Documentation: 06/26/22 17:05 . Limitations to Documentation: no limitations . Information obtained by: patient, family and RN notes reviewed . History of Present Illness 41 year old M presents to the emergency department with the chief complaint of SINCLAIR and rash in nose, described as severe, with intensity rated at 10. Quality is described as stabbing, and is localized to the head and face. Patient reports no radiation. Patient started experiencing this day(s) and it has been constant. No relieving factors improve symptom(s), No exacerbating factors reported . Patient notes headaches, malaise and rash (intranasal); denies chest pain, cough, diaphoresis, fever/chills, nausea/vomiting, shortness of breath and weakness. Patient did receive the following treatments prior to arrival, none Related Data Home Medications Medication Instructions Recorded Confirmed ergocalciferol (vitamin D2) 50 mcg 50 mcg PO DAILY 04/24/21 06/26/22 (2,000 unit) capsule vitamin K2 40 mcg tablet 40 mcg PO DAILY 04/24/21 06/26/22 testosterone 20.25 mg/1.25 gram 1 pump topical DAILY testosterone 09/02/21 06/26/22 (1.62 %) transdermal gel pump replacement #75 grams mirtazapine 7.5 mg tablet 1 tab PO HS PRN Sleep 06/26/22 06/26/22 omeprazole 20 mg capsule,delayed 1 cap PO DAILY 06/26/22 06/26/22 release Previous Rx's Medication Instructions Recorded testosterone 20.25 mg/1.25 gram 1 pump topical DAILY testosterone 09/02/21 (1.62 %) transdermal gel pump replacement #75 grams Allergies Allergy/AdvReac Type Severity Reaction Status Date / Time amoxicillin Allergy Severe Verified 05/01/22 15:59 bupropion [From Wellbutrin] Allergy Intermediate Verified 05/01/22 15:59 Sulfa (Sulfonamide Allergy Unknown Unverified 05/01/22 15:59 Antibiotics) General Stated Complaint: GenMedical BECKIE: 3 Review of Systems Constitutional Constitutional: Reports as per HPI, Denies chills, Reports fatigue, Denies fever(s), Reports headache(s) and Denies weakness Eyes Eyes: Reports as per HPI, Denies blurry vision and Denies change in vision ENT Ears, Nose, Mouth, and Throat: Denies vertigo, Reports headache(s) and Denies neck pain Cardiovascular Cardiovascular: Reports as per HPI, Denies chest pain, Denies lightheadedness and Denies dyspnea Respiratory Respiratory: Reports as per HPI, Denies chest congestion, Denies cough and Denies dyspnea Gastrointestinal Gastrointestinal: Reports as per HPI, Denies abdominal pain, Denies change in bowel habits, Denies nausea and Denies vomiting Genitourinary Genitourinary: Reports system reviewed and no additional complaints, except as documented (denies change in urinary habits) Musculoskeletal Musculoskeletal: Reports as per HPI, Denies back pain, Denies myalgias, Denies muscle cramps, Denies neck pain and Denies numbness Integumentary/Breasts Skin/Breast: Reports as per HPI Neurologic Neurologic: Reports as per HPI, Denies abnormal movements, Denies abnormal speech, Denies behavioral changes, Denies confusion, Denies vertigo, Reports headache(s), Denies localized weakness, Denies numbness, Denies sensory deficit and Denies weakness Psychiatric Psychiatric: Denies behavioral changes and Denies confusion Endocrine Endocrine: Reports fatigue PFSH All Active Problems (Updated 06/26/22 @ 20:27 by SUPRIYA Pascual) Abrasion, nose with infection (Acute) Headache (Acute) Vertigo (Acute) Obstructive sleep apnea (Chronic) Chronic daily headache (Acute) Fatigue (Acute) Burn (Acute) Cellulitis (Acute) Aphasia (Acute) Headache (Acute) History of paresthesia (Acute) Dysuria (Acute) Medical History Acoustic neuroma Dyspnea on exertion Elevated white blood cell count GERD (gastroesophageal reflux disease) Hearing loss, left Hypertension Indirect inguinal hernia Left-sided Richardson's palsy Lower back pain Nicotine dependence Retinal defect Rotator cuff syndrome right UTI (urinary tract infection) Vitamin D deficiency Weakness Surgical History S/P appendectomy S/P excision of acoustic neuroma S/P hernia repair Social History Smoking/Tobacco Use Status: Former Tobacco Use Smoking risk assessment performed?: Yes Alcohol Intake: former Substance use type: does not use Details: no alcohol or tobacco for years Household members: spouse Number of Children: 4 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, 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 Exam Const General: cooperative, healthy appearing, uncomfortable, no acute distress, well developed and well groomed Nutritional Appearance: average body habitus and well nourished Orientation: alert, awake and oriented x3 [facility] Head: normal to inspection, no palpable skull fracture, normocephalic and atraumatic Ears: hearing grossly normal bilaterally, external ears normal and TM's normal bilaterally General nose exam: external nose normal and nares abnormal (boggy, erythematous) Face and sinus: normal facial exam, sinuses nontender and face asymmetric (CN7 palsy) Mouth: oral mucosae normal and moist mucous membranes Throat: posterior oropharynx normal Eyes General: appearance normal, both eyes and all related structures Alignment and Position: alignment normal Periorbital: periorbital findings normal Eyelids: eyelids normal Sclera: sclerae normal Cornea: corneas normal Pupils: PERRL EOM: EOM intact bilaterally Neck Neck: normal visual inspection, full ROM, no lymphadenopathy and no meningeal signs Resp Effort & Inspection: normal respiratory effort, able to speak in complete sentences and no respiratory distress Auscultation: clear to auscultation bilaterally, no rales, no rhonchi and no wheezes Cardio Rate: regular rate Rhythm: regular rhythm Heart Sounds: S1 normal and S2 normal GI Inspection: normal to inspection and non-distended Palpation: soft, no hepatosplenomegaly, not firm, no guarding, not rigid and nontender Percussion: normal to percussion Auscultation: normal bowel sounds Back/Spine/Pelvis Cervical Spine: normal cervical lordosis and cervical ROM normal Skin Rashes: rashes noted (intranasal as above) Neuro General: patient alert, patient awake and patient oriented x3 Cranial Nerves: PERRL, accommodation normal, EOM intact bilaterally, no nystagmus, tongue midline, hearing normal, able to rotate head bilaterally, able to elevate shoulders bilaterally and individual cranial nerve findings VII: abnormal (deficit on left side with slight palsy) Cognition: normal cognition Speech: speech normal Gait: normal gait Motor: muscle tone normal throughout, strength 5/5 throughout, no pronator drift, no movement abnormalities noted and no fasciculations Sensory Exam: no sensory deficits noted Coordination: [id number] test normal, [id number] test normal, Romberg test normal, Does not sway with eyes open and rapid alternating movement UE normal Extrem General: normal to inspection, capillary refill normal, no pedal edema and no calf tenderness Psych Appearance: grossly normal and well kempt Mental Status: mental status grossly normal Speech and Movement: speech and movement normal Course Vital Signs Vital signs: Vital Signs Temperature 36.6 C 06/26/22 16:41 Pulse 87 06/26/22 16:41 Respiratory Rate 18 06/26/22 16:41 Blood Pressure 124/97 H 06/26/22 16:41 Pulse Oximetry 99 06/26/22 16:41 Temperature 36.6 C 06/26/22 16:41 Temperature Source Temporal Artery Scan 06/26/22 16:41 Pulse 87 06/26/22 16:41 Respiratory Rate 18 06/26/22 16:41 Blood Pressure 124/97 H 06/26/22 16:41 Blood Pressure Position Sitting 06/26/22 16:41 Pulse Oximetry 99 06/26/22 16:41 Oxygen Delivery Method Room Air 06/26/22 16:41 Oxygen Flow Rate 0 06/26/22 16:41 Pain Level 10 06/26/22 16:41
[2022-06-26 17:09] VITALS: RESP 16
--- NOTE | 2022-06-26 17:15 | DI.CT_ITS ---
Exam(s) CT HEAD WO/W FACIAL W EXAM: CT HEAD WO/W FACIAL W CLINICAL HISTORY: left sided SINCLAIR, hx acustic neuroma, nasal pain x4wk. TECHNIQUE: Imaging Protocol: Axial computed tomography images with coronal and sagittal reformatted images were created and reviewed. CONTRAST MATERIAL: Intravenous: Omnipaque 350 contrast volume:100 mL COMPARISON: CT CT HEAD WO from 02/05/2021 FINDINGS: Ventricles and Extra axial spaces: Normal in size and morphology for the patient's age. Hemorrhage: None. Cerebral parenchyma: Normal. Enhancement: No suspicious enhancement. [place]: Unremarkable. Midline shift: None. Brainstem/Cerebellum: Normal. Calvarium: Status post left temporal craniotomy. Visualized Paranasal sinuses/Mastoids: Clear. CT Face: Facial Bones: No definite fracture is noted in facial bones. Sinuses and Mastoids: Postoperative changes are seen in the left petrous temporal bone. No solid en hancing mass is seen in the region. Globes, extraocular muscles, optic nerves and retrobulbar fat: Normal. Upper aerodigestive tract: Normal. Mandible and bilateral temporomandibular joints: Normal. Soft tissues: Normal. IMPRESSION: 1. No acute intracranial process. 2. Postsurgical changes involving the left temporal bone. No evidence of a recurrent mass or osteomy elitis. RADIATION DOSE DELIVERED: 2,407.27mGy.cm Total DLP DATA REPOSITORY: All CT scans at this facility are submitted to the National Radiology Data Registry (NRDR) Dose Index Registry (DIR) with the [employer] (ACR). RADIATION OPTIMIZATION: All CT scans at this facility use at least one of these dose optimization te chniques: automated exposure control; mA and/or kV adjustment per patient size (includes targeted exa ms where dose is matched to clinical indication); or iterative reconstruction.
[2022-06-26] MEDS: ACETAMINOPHEN 1,000 MG/100 ML BTL 400 MG IVPB (17:55)
[2022-06-26] MEDS: Ketorolac 30 MG/ML VIAL IVP (17:56)
[2022-06-26] MEDS: Prochlorperazine 10 MG/2 ML VIAL IVP (17:56)
[2022-06-26] MEDS: Normal Saline 1,000 ML 1000 ML IV (17:57)
[2022-06-26 18:05] LABS: ALT 90 U/L (16-63); AST 36 U/L (15-37); Albumin 4.3 g/dL (3.4-5.0); Alkaline Phosphatase 70 U/L (46-116); Anion Gap 10.4 mmol/L (3-11); BUN 17 mg/dL (7-18); Bilirubin, Total 0.2 mg/dL (0.2-1.0); CO2 25.6 mmol/L (21.0-32.0); CREATININE 0.9 mg/dL (0.70-1.30); Calcium 9.4 mg/dL (8.5-10.1); Chloride 102 mmol/L (98-107); Estimated GFR 110.73 (mL/min/1.73m2); Glucose 86 mg/dL (74-106); Potassium 3.7 mmol/L (3.5-5.1); Sodium 138 mmol/L (136-145); Total Protein 7.8 g/dL (6.4-8.2)
[2022-06-26 18:29] LABS: Abs Immature Grans 0.02 10^3/uL (0.0-0.06); Absolute Basophil Count 0.04 10^3/uL (0.0-0.2); Absolute Eosinophil Count 0.17 10^3/uL (0.0-0.7); Absolute Lymphocyte Count 3.48 10^3/uL (1.2-3.4); Absolute Monocyte Count 0.56 10^3/uL (0.1-0.8); Absolute Neutrophil Count 4.55 10^3/uL (1.2-6.7); Basophils % 0.5; Eosinophils % 1.9; HGB 14.8 g/dL (13.5-17.5); Immature Grans % 0.2; Lymphocytes % 39.5; MCH 29.1 pg (27.0-33.0); MCHC 33.6 % (32.0-36.0); MCV 87 fL (80-95); MPV 10.2 fL (8.0-11.0); Monocytes % 6.3; Neutrophils % 51.6; Platelet Count 266 10^3/uL (130-400); RBC 5.08 10^6/uL (4.36-5.78); RDW 12.4 % (11.8-14.1); RDW-SD 39.6 fL; WBC 8.82 10^3/uL (4.4-10.8)
[2022-06-26] MEDS: diphenhydrAMINE 50 MG/ML VIAL 25 MG IVP ×2 (18:38→18:44)
[2022-06-26] MEDS: LORazepam 2 MG/ML VIAL 1 MG IVP (18:39)
[2022-06-26 18:41] VITALS: BP 132/88; PULSE 81; RESP 16; O2SAT 97
[2022-06-26] MEDS: Omnipaque 350 MG/ML 100 ML BTL IJ (19:01)
[2022-06-26 19:18] VITALS: BP 142/90; PULSE 74; RESP 16; O2SAT 100
[2022-06-26 19:19] VITALS: BP 142/90; RESP 16; O2SAT 100
--- NOTE | 2022-06-26 19:57 | DI.VRAD_ITS ---
PROCEDURE INFORMATION: Exam: CT Head Without And With Contrast Exam date and time: 06/26/2022 6:59 PM Age: 41 years old Clinical indication: Headache and other: Left sided SINCLAIR, HX acustic neuroma, nasal pain x4wk; Prior surgery; Surgery date: 6+ months; Surgery type: H/o acustic neuroma TECHNIQUE: Imaging protocol: Computed tomography of the head without and with contrast. Radiation optimization: All CT scans at this facility use at least one of these dose optimization techniques: automated exposure control; mA and/or kV adjustment per patient size (includes targeted exams where dose is matched to clinical indication); or iterative reconstruction. Contrast material: OMNI 350; Contrast volume: 100 ml; Contrast route: INTRAVENOUS (IV); COMPARISON: MR IAC BRAIN WO/W 05/20/2021 3:00 PM FINDINGS: Brain: No intracranial hemorrhage. No midline shift. No significant white matter hypoattenuation. No enhancing mass. No subdural collections. No pneumocephalus. Cerebral ventricles: No ventriculomegaly. Paranasal sinuses: Visualized sinuses are unremarkable. No fluid levels. Mastoid air cells: Visualized mastoid air cells are well aerated. Please see discussion below. Bones/joints: Left temporal craniotomy noted. No complications observed. No skull fractures. Soft tissues: Unremarkable. IMPRESSION: Negative for intracranial hemorrhage or other acute intracranial abnormality. PROCEDURE INFORMATION: Exam: CT Maxillofacial With Contrast Exam date and time: 06/26/2022 6:59 PM Age: 41 years old Clinical indication: Headache and other: Left sided SINCLAIR, HX acustic neuroma, nasal pain x4wk; Prior surgery; Surgery date: 6+ months; Surgery type: H/o acustic neuroma TECHNIQUE: Imaging protocol: Computed tomography of the face with contrast. Radiation optimization: All CT scans at this facility use at least one of these dose optimization techniques: automated exposure control; mA and/or kV adjustment per patient size (includes targeted exams where dose is matched to clinical indication); or iterative reconstruction. Contrast material: OMNI 350; Contrast volume: 100 ml; Contrast route: INTRAVENOUS (IV); COMPARISON: MR IAC BRAIN WO/W 05/20/2021 3:00 PM FINDINGS: Orbital cavities: Orbits are normal. Globes are unremarkable. Bones/joints: No acute fracture. Left temporal craniotomy again noted. Partial resection of the left petrous temporal bone is observed, with postoperative fat packing material in place of the bone. This abuts the internal auditory canal, which is otherwise normal in width. There is no solid enhancing mass at the site. The cerebellar pontine angles appear normal and unremarkable. The mastoid air cells are clear and well pneumatized. There is no bony erosion or destructive change. Paranasal sinuses: Normal. No air-fluid levels. Soft tissues: Unremarkable. Vasculature: Internal jugular veins are patent bilaterally. Visualized portions of the internal carotid arteries appear normal. IMPRESSION: No acute findings. Postoperative changes from left acoustic neuroma resection. No complications observed. No evidence of recurrent mass. No evidence of osteomyelitis. Dictated and Authenticated by: Alejo Rajan MD. Ordering:YANG Carvajal MD
[2022-06-26 20:57] VITALS: BP 130/86; PULSE 76; RESP 14; O2SAT 99
[2022-07-26 11:40] LABS: Fungus Smear No Fungi Seen
== END 2022-06-26 20:57 | disposition home or self-care (01) ==
PROVIDERS: Emergency Provider Physician Assistant; PCP Family Medicine
DX: S00.31XA Abrasion of nose, initial encounter (principal); B37.49 Other urogenital candidiasis; R51.9 Headache, unspecified; X58.XXXA Exposure to other specified factors, initial encounter
CPT/HCPCS: 80053; 87102; 87206; 96361; 96374; 96375; 96376; 99284; 70470; 70487; 85025; 87070; 99281; J0131; J0780; J1200; J1885; J2060; J3490

== ENCOUNTER 2023-05-10 12:36 | Emergency (ER) | payer MEDICAID, SELFPAY ==
[2023-05-10] VITALS (38 sets, daily range): BP systolic 132–154; BP diastolic 88–112; PULSE 84–104; RESP 10–24; TEMP 36.7; O2SAT 96–98
--- NOTE | 2023-05-10 12:45 | RT.EKG_ITS ---
APPROVED REPORT Exam: Resting ECG Reason for Exam: SOB/eye pressure Patient Location: E HR:102 bpm ECG Measurements Heart Rate 102 AXIS NV 174 P 58 QRSd 87 QRS 3 QT 331 T 29 QTc 432 Conclusion Sinus tachycardia...rate> 99
--- NOTE | 2023-05-10 13:15 | DI.CT_ITS ---
Exam(s) CT HEAD WO EXAM: CT HEAD WO CLINICAL HISTORY[place] headache[place] 4 [place] [facility] [place]CHNIQUE: Imaging Protocol: Axial computed tomography images with coronal and sagittal reformatted images were created and reviewed COMPARISON: CT CT HEAD WO/W FACIAL W from 06/26/2022 FINDINGS: Ventricles and Extra axial spaces: Normal in size and morphology for the patient's age. Hemorrhage: None. Cerebral parenchyma: No evidence of acute infarct or mass. Midline shift: None. Brainstem/Cerebellum: Normal. Calvarium: Left thumb temporal craniotomy defect. Visualized Paranasal sinuses/Mastoids: Clear. Soft Tissues: Unremarkable. IMPRESSION: No acute intracranial process. RADIATION DOSE DELIVERED: 769.77mGy.cm Total DLP DATA REPOSITORY: All CT scans at this facility are submitted to the National Radiology Data Registry (NRDR) Dose Index Registry (DIR) with the [employer] (ACR). RADIATION OPTIMIZATION: All CT scans at this facility use at least one of these dose optimization te chniques: automated exposure control; mA and/or kV adjustment per patient size (includes targeted exa ms where dose is matched to clinical indication); or iterative reconstruction.
--- NOTE | 2023-05-10 14:12 | W.ED.GENAD ---
Discharge Plan Discharge Details Chief Complaint: EyeProblem Primary Care Provider: Kobe Richardson ED Provider: Bradley Son Home Meds and New Rx's Prescriptions: No Action testosterone 20.25 mg/1.25 gram (1.62 %) gel in metered-dose pump 1 pump topical DAILY Qty: 75 5RF Rx Instructions: apply 1 pump amount over max area of ONE upper arm and shoulder vitamin K2 40 mcg tablet 40 mcg PO DAILY ergocalciferol (vitamin D2) 50 mcg (2,000 unit) capsule 50 mcg PO DAILY omeprazole 20 mg capsule,delayed release(DR/EC) 1 cap PO DAILY mirtazapine 7.5 mg tablet 1 tab PO HS PRN (Reason: Sleep) Patient Comments: TAKE ONE TABLET BY MOUTH AT BEDTIME NEEDED FOR SLEEP Medical Decision Making 1422 --42-year-old male with history of schwannoma status post resection with residual left-sided facial weakness, daily headaches, here with 4 days of pressure behind his left eye and associated blurred vision in his left eye. Visual acuity was performed by nursing who notes right eye 20/20, left eye 20/13. Patient does have pain on attempted accommodation and photophobia in the left eye. External eye appears normal. Plan to obtain stat CT of the head to assess for recurrent lesion/hemorrhage. 1534 --CT of the head was interpreted by radiology: No acute intracranial process. I spoke with Dr. Smalls, neurology, discussed ED presentation and course, she agrees with MRI of the brain and orbit and recommends IAC MRI as well. -- IOP measured with [id number] tonomater: OS 24-30, OD 18.5. Lab Data Lab results reviewed: Yes I reviewed the patient's lab results. HPI General Mode of arrival: ambulatory. Date/Time Provider Initiated Documentation: 05/10/23 13:15. Limitations to Documentation: no limitations. Information obtained by: patient. HPI Narrative: 42-year-old male with history of intracranial schwannoma status post tumor resection years ago, daily headaches, here with pressure behind his left eye. Symptoms started about 4 days ago. He notes some associated blurred vision left eye described as waviness central vision. No associated numbness or weakness other than chronic weakness of his left face postoperatively. Related Data Home Medications Medication Instructions Recorded Confirmed ergocalciferol (vitamin D2) 50 mcg 50 mcg PO DAILY 04/24/21 06/26/22 (2,000 unit) capsule vitamin K2 40 mcg tablet 40 mcg PO DAILY 04/24/21 06/26/22 testosterone 1 pump topical DAILY testosterone 09/02/21 06/26/22 replacement #75 grams mirtazapine 7.5 mg tablet 1 tab PO HS PRN Sleep 06/26/22 06/26/22 omeprazole 20 mg capsule,delayed 1 cap PO DAILY 06/26/22 06/26/22 release Previous Rx's Medication Instructions Recorded testosterone 1 pump topical DAILY testosterone 09/02/21 replacement #75 grams Allergies Allergy/AdvReac Type Severity Reaction Status Date / Time amoxicillin Allergy Severe Verified 05/01/22 15:59 bupropion [From Wellbutrin] Allergy Intermediate Verified 05/01/22 15:59 Sulfa (Sulfonamide Allergy Unknown Unverified 05/01/22 15:59 Antibiotics) General Stated Complaint: EyeProblem BECKIE: 2 Review of Systems All systems reviewed & are unremarkable except as noted in HPI and below Constitutional Constitutional: Denies fever(s) and Reports headache(s) Eyes Eyes: Reports as per HPI ENT Ears, Nose, Mouth, and Throat: Reports headache(s) Neurologic Neurologic: Reports as per HPI and Reports headache(s) PFS All Active Problems Vertigo (Acute) Obstructive sleep apnea (Chronic) Chronic daily headache (Acute) Fatigue (Acute) Burn (Acute) Cellulitis (Acute) Aphasia (Acute) Headache (Acute) History of paresthesia (Acute) Dysuria (Acute) Medical History Acoustic neuroma Dyspnea on exertion Elevated white blood cell count GERD (gastroesophageal reflux disease) Hearing loss, left Hypertension Indirect inguinal hernia Left-sided Richardson's palsy Lower back pain Nicotine dependence Retinal defect Rotator cuff syndrome right UTI (urinary tract infection) Vitamin D deficiency Weakness Surgical History S/P appendectomy S/P excision of acoustic neuroma S/P hernia repair Social History Smoking/Tobacco Use Status: Former Tobacco Use Smoking risk assessment performed?: Yes Alcohol Intake: former Substance use type: does not use Details: no alcohol or tobacco for years Household members: spouse Number of Children: 4 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, 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 Exam Const General: cooperative and no acute distress Orientation: alert and awake HENMT Head: normocephalic and atraumatic Mouth: moist mucous membranes Eyes Conjunctivae: normal conjunctivae Sclera: normal sclerae Pupils: PERRL and accommodation abnormal EOM: EOM intact bilaterally Direct ophthalmoscopy: photophobia present and photophobia (left) Neck Neck: trachea midline and supple Resp Auscultation: clear to auscultation bilaterally, no rales, no rhonchi and no wheezes Cardio Rate: regular rate and not tachycardic Rhythm: regular rhythm GI Palpation: soft, not firm, no guarding, no masses, not rigid and nontender Skin General skin exam: no rashes or lesions noted Neuro General: patient alert, patient awake and tone normal Cognition: normal cognition Speech: abnormal speech (intermittent delayed speech (patient notes chronic when tired)) Motor: strength 5/5 throughout Sensory Exam: no sensory deficits noted Extrem General: no edema Psych Appearance: grossly normal Mental Status: mental status grossly normal Course Vital Signs Vital signs: Vital Signs Temperature 36.7 C 05/10/23 12:38 Pulse 104 H 05/10/23 12:38 Respiratory Rate 18 05/10/23 12:38 Blood Pressure 152/108 H 05/10/23 12:38 Pulse Oximetry 96 05/10/23 12:38 Temperature 36.7 C 05/10/23 12:38 Temperature Source Skin 05/10/23 12:38 Pulse 98 H 05/10/23 13:31 Pulse 100 H 05/10/23 13:31 Respiratory Rate 18 05/10/23 13:31 Respiratory Effort Normal 05/10/23 13:14 Blood Pressure 145/99 H 05/10/23 13:31 Blood Pressure Mean 106 05/10/23 13:31 Blood Pressure Position Sitting 05/10/23 12:38 Pulse Oximetry 96 05/10/23 12:38 Oxygen Delivery Method Room Air 05/10/23 12:38 Oxygen Flow Rate 0 05/10/23 12:38 Pain Level 7 05/10/23 12:38
--- NOTE | 2023-05-10 15:30 | DI.MRI_ITS ---
Exam(s) MR IAC BRAIN WO/W EXAM: MR IAC BRAIN WO/W CLINICAL HISTORY: h/o scwannoma s/p resection, recommended by neuro. TECHNIQUE: Multiplanar multisequence MRI of the brain and internal auditory canals was performed. CONTRAST MATERIAL: IV Contrast: 19 mL of Dotarem contrast administered. COMPARISON: MR MR IAC BRAIN WO/W from 02/05/2021 MR MR IAC BRAIN WO/W from 05/20/2021 FINDINGS: VENTRICLES AND EXTRA AXIAL SPACES: Normal in size and morphology for the patient's age. HEMORRHAGE: None. CEREBRAL PARENCHYMA: No focus of restricted diffusion to suggest acute infarct. No space-occupying le jack identified. MIDLINE SHIFT: None. BRAINSTEM/CEREBELLUM: Normal. CALVARIUM: Normal. There is again seen a left temporoparietal craniotomy. ENHANCEMENT: No suspicious enhancement identified. VISUALIZED PARANASAL SINUSES/MASTOIDS: Clear. [place]: Normal flow void. PITUITARY GLAND: Unremarkable. IAC/CP ANGLE: There is stable high T1 signal in the anterior aspect of the left internal auditory can al. The left internal auditory canal is otherwise unremarkable. No evidence of an enhancing lesion to suggest recurrent schwannoma. The cerebellar pontine angles are unremarkable. No enhancing lesion s are seen. The visualized portions of the 7th and 8th nerves are within normal limits. OTHER FINDINGS: None. IMPRESSION: 1. Postsurgical changes in the left temporal bone. 2. No evidence of a recurrent mass or new abnormality. 3. Findings were discussed with the emergency department at 6:35 p.m. on 05/10/2023. DATA REPOSITORY:
[2023-05-10] MEDS: Midazolam 2 MG/2 ML VIAL IVP (15:44)
[2023-05-10 15:47] LABS: Abs Immature Grans 0.02 10^3/uL (0.0-0.06); Absolute Basophil Count 0.04 10^3/uL (0.0-0.2); Absolute Eosinophil Count 0.13 10^3/uL (0.0-0.7); Absolute Lymphocyte Count 2.61 10^3/uL (1.2-3.4); Absolute Monocyte Count 0.48 10^3/uL (0.1-0.8); Absolute Neutrophil Count 5.11 10^3/uL (1.2-6.7); Basophils % 0.5; Eosinophils % 1.5; HCT 41.3 % (40.0-50.0); HGB 14.1 g/dL (13.5-17.5); Immature Grans % 0.2; Lymphocytes % 31.1; MCH 29.1 pg (27.0-33.0); MCHC 34.1 % (32.0-36.0); MCV 85 fL (80-95); MPV 9.8 fL (8.0-11.0); Monocytes % 5.7; Platelet Count 252 10^3/uL (130-400); RBC 4.84 10^6/uL (4.36-5.78); RDW 12.3 % (11.8-14.1); RDW-SD 38.5 fL; WBC 8.39 10^3/uL (4.4-10.8)
[2023-05-10 16:01] LABS: Anion Gap 7.5 mmol/L (3-11); BUN 16 mg/dL (7-18); CO2 27.5 mmol/L (21.0-32.0); Calcium 8.9 mg/dL (8.5-10.1); Chloride 104 mmol/L (98-107); Estimated GFR 96.97 (mL/min/1.73m2); Glucose 95 mg/dL (74-106); Sodium 139 mmol/L (136-145)
[2023-05-10] MEDS: LORazepam 2 MG/ML VIAL 1 MG IVP (17:12)
[2023-05-10] MEDS: Normal Saline Flush 10 ML SYR IVP (17:22)
[2023-05-10] MEDS: Gadoterate meglumine 20 ML VIAL 19 ML IVP (17:22)
--- NOTE | 2023-05-10 18:36 | DI.VRAD_ITS ---
Addendum created by Cruzito Darling MD on 05/10/2023 6:43:19 PM EDT: THIS REPORT CONTAINS FINDINGS THAT MAY BE CRITICAL TO PATIENT CARE. The findings were verbally communicated via telephone conference with Dr. Dai at 6:43 PM EDT on 05/10/2023. The findings were acknowledged and understood. Initial report created on 05/10/2023 6:35:38 PM EDT: PROCEDURE INFORMATION: Exam: MR Head Without and With Contrast Exam date and time: 05/10/2023 5:13 PM Age: 42 years old Clinical indication: Speech disturbance and other: Headache; Prior surgery; Surgery date: 6+ months; Surgery type: Left inner ear TECHNIQUE: Imaging protocol: Magnetic resonance imaging of the head without and with contrast. Contrast material: DOTAREM; Contrast volume: 19 ml; Contrast route: INTRAVENOUS (IV); COMPARISON: CT HEAD WO 05/10/2023 2:34 PM and enhanced MRI of the brain performed 05/10/2023. FINDINGS: Brain: Cerebral sulci show bilateral symmetry with no supratentorial mass or mass effect detected. Postsurgical changes are again evident involving the petrous segment of the left temporal bone in the region of the left internal auditory canal with associated fat/fascial packing. No recurrent mass or other abnormal enhancement is detected at this location and the brainstem and cerebellum are otherwise unremarkable. No foci of abnormal increased or decreased signal intensity are seen within the remainder of the brain parenchyma and there is no evidence of acute infarct or recent hemorrhage. Cerebral ventricles: Ventricles are normal in size and configuration with no evidence of midline shift or hydrocephalus. Bones/joints: Left temporal craniotomy defect and postsurgical defect again seen involving the petrous segment of the left temporal bone with no new osseous defects detected. Paranasal sinuses: Clear as visualized. Mastoid air cells: Clear as visualized. Orbital cavities: Unremarkable. Soft tissues: Unremarkable. IMPRESSION: Postsurgical changes again evident related to previous resection of left-sided acoustic neuroma as described above. No evidence of recurrent tumor detected. No other acute intracranial process is identified. Dictated and Authenticated by: Cruzito Darling MD. Ordering:ÁLVARO Huerta MD
--- NOTE | 2023-05-10 19:03 | W.EDPROG ---
Date of service: 05/10/23 Time of Service: 19:03 Medical Decision Making Patient resting comfortably feeling much better after rest. MRI unremarkable for acute intracranial or ocular process. Bedside ultrasound of left eye negative for retinal detachment or vitreous hemorrhage. Repeat ocular pressures 18.8 bilaterally. Consider atypical migraine. Patient will follow-up closely with ophthalmology and primary care physician. Given home care instructions and return precautions Sign Out Sign Out Data: Sign Out Comment: Follow-up MRI of the brain, internal auditory canal and orbits. If no concerning findings, recommend consultation with ophthalmology regarding abnormal intraocular pressure and symptoms. Last updated by Bradley Son MD at 05/10/23 15:56 Discharge Plan Disposition Patient Disposition: Home Discharge Details Chief Complaint: EyeProblem Clinical Impression: Acute eye pain Primary Care Provider: Kobe Richardson ED Provider: Jose Dai Home Meds and New Rx's Prescriptions: No Action testosterone 20.25 mg/1.25 gram (1.62 %) gel in metered-dose pump 1 pump topical DAILY Qty: 75 5RF Rx Instructions: apply 1 pump amount over max area of ONE upper arm and shoulder vitamin K2 40 mcg tablet 40 mcg PO DAILY ergocalciferol (vitamin D2) 50 mcg (2,000 unit) capsule 50 mcg PO DAILY omeprazole 20 mg capsule,delayed release(DR/EC) 1 cap PO DAILY mirtazapine 7.5 mg tablet 1 tab PO HS PRN (Reason: Sleep) Patient Comments: TAKE ONE TABLET BY MOUTH AT BEDTIME NEEDED FOR SLEEP Discharge Instructions Instructions: Blurred Vision (ED), Eye Pain (ED) Additional Instructions: Please follow-up closely with ophthalmology and your primary care physician. Please return to the emergency department for any worsening symptoms
== END 2023-05-10 19:37 | disposition home or self-care (01) ==
PROVIDERS: Student in an Organized Health Care Education/Training Program; Emergency Provider Emergency Medicine; PCP Family Medicine
DX: H57.12 Ocular pain, left eye (principal)
CPT/HCPCS: 70553; 80048; 93005; 96374; 96375; 99285; 70450; 85025; 93010; J2060; J2250

== ENCOUNTER 2023-06-07 11:37 | Outpatient (REF) | payer MEDICAID, SELFPAY ==
[2023-06-07 16:59] LABS: HCT 43.5 % (40.0-50.0); HGB 14.9 g/dL (13.5-17.5); MCH 29.3 pg (27.0-33.0); MCHC 34.3 % (32.0-36.0); MCV 86 fL (80-95); MPV 10.8 fL (8.0-11.0); Platelet Count 268 10^3/uL (130-400); RBC 5.09 10^6/uL (4.36-5.78); RDW 12.5 % (11.8-14.1); RDW-SD 38.8 fL; WBC 6.34 10^3/uL (4.4-10.8)
[2023-06-07 17:49] LABS: ALT 39 U/L (16-63); AST 20 U/L (15-37); Albumin 4.2 g/dL (3.4-5.0); Alkaline Phosphatase 70 U/L (46-116); Anion Gap 11.2 mmol/L (3-11); BUN 15 mg/dL (7-18); Bilirubin, Total 0.2 mg/dL (0.2-1.0); CO2 24.8 mmol/L (21.0-32.0); CREATININE 0.9 mg/dL (0.70-1.30); Calcium 9.5 mg/dL (8.5-10.1); Calculated LDL 228 mg/dL (<100); Chloride 102 mmol/L (98-107); Cholesterol 329 mg/dL (<200); Estimated GFR 110.04 (mL/min/1.73m2); Glucose 114 mg/dL (74-106); HDL Cholesterol 46 mg/dL (40-60); Potassium 4.2 mmol/L (3.5-5.1); Sodium 138 mmol/L (136-145); Total Protein 7.5 g/dL (6.4-8.2); Triglyceride 277 mg/dL (<150)
[2023-06-07 19:54] LABS: Hemoglobin A1C 5.4 % (<5.7)
[2023-06-09 10:13] LABS: Hepatitis B Surface Ag Negative (Negative)
[2023-06-09 10:39] LABS: Hepatitis C Ab w Rflx HCV PCR Negative (Negative)
== END 2023-06-07 11:38 | disposition home or self-care (01) ==
LOC: NCHCN 11:37
PROVIDERS: PCP Family Medicine; Visit Provider Family Medicine
DX: R74.8 Abnormal levels of other serum enzymes (principal); R79.89 Other specified abnormal findings of blood chemistry; Z11.59 Encounter for screening for other viral diseases; R73.09 Other abnormal glucose
CPT/HCPCS: 80053; 80061; 85027; 86803; 87340; 83036

== ENCOUNTER 2023-07-30 20:52 | Outpatient (REF) | payer MEDICAID, SELFPAY ==
[2023-07-30 16:34] LABS: Calculated LDL 91 mg/dL (<100); Cholesterol 164 mg/dL (<200); HDL Cholesterol 44 mg/dL (40-60); Triglyceride 148 mg/dL (<150)
== END 2023-07-30 20:53 | disposition home or self-care (01) ==
LOC: NCHCN 20:52
PROVIDERS: PCP Family Medicine; Visit Provider Family Medicine
DX: E78.5 Hyperlipidemia, unspecified (principal)
CPT/HCPCS: 80061

== ENCOUNTER 2023-09-09 13:05 | Emergency (ER) | payer MEDICAID, SELFPAY ==
[2023-09-09] VITALS (28 sets, daily range): BP systolic 131–144; BP diastolic 87–97; PULSE 78–101; RESP 9–20; TEMP 36.3; O2SAT 91–100
--- NOTE | 2023-09-09 13:00 | RT.EKG_ITS ---
APPROVED REPORT Exam: Resting ECG Reason for Exam: chest pain Patient Location: E HR:93 bpm ECG Measurements Heart Rate 93 AXIS MI 168 P 62 QRSd 87 QRS 31 QT 344 T 16 QTc 427 Conclusion Sinus rhythm...normal P axis, V-rate 60- [address] segment or t wave abnormalitites to suggest occlusive SD
--- NOTE | 2023-09-09 13:40 | ED.GENADUL_ITS ---
Discharge Plan Disposition Patient Disposition: Home Condition: Good Discharge Details Clinical Impression: Chest pain of uncertain etiology Primary Care Provider: Kobe Richardson ED Provider: Mariya Zhu Home Meds and New Rx's Prescriptions: No Action testosterone 20.25 mg/1.25 gram (1.62 %) gel in metered-dose pump 1 pump topical DAILY Qty: 75 5RF Hold Instructions: Pt Stopped/Never Started Rx Instructions: apply 1 pump amount over max area of ONE upper arm and shoulder vitamin K2 40 mcg tablet 40 mcg PO DAILY ergocalciferol (vitamin D2) 50 mcg (2,000 unit) capsule 50 mcg PO DAILY amitriptyline 10 mg tablet 10 mg PO DAILY Patient Comments: TAKE 1 TABLET BY MOUTH EVERY DAY omeprazole 20 mg capsule,delayed release(DR/EC) 1 cap PO DAILY Discharge Instructions Instructions: Chest Pain (ED) Additional Instructions: Call your primary care doctor tomorrow to schedule an appointment to followup on your visit today and to discuss whether you should see cardiology or get a stress test. Return to the emergency department for new or worsening symptoms including new/different/worse pain, difficulty breathing, feeling like you are going to pass out, swelling in your legs, or if you have any other concerns. Stand Alone Forms: Work Release Referrals: Kobe Richardson [Primary Care Provider] - Medical Decision Making 42yo M with hx of HTN, GERD, no prior cardiac history, presenting for intermittent chest pain for the past two weeks. Lasts for various durations and is in various locations, no clear provoking factors. No pain currently. Of note, his father did have a heart attack two weeks ago. Slightly tachycardiac to 90's on arrival, vital signs and physical exam otherwise reassuring. Low suspicion for acute coronary syndrome based on history; will further evaluate with EKG/CXR/labs. History not suspicious for aortic dissection. EKG NSR, appropriate intervals, no ST segment or T wave abnormalities to suggest occlusive RI. CXR independently reviewed, no focal pneumonia or pneumothorax on my view, agree with radiology read below. Labs reviewed as below, CBC and CMP reassuring with no actionable abnormalities, BNP normal, initial troponin negative. D-dimer negative, would not further workup for pulmonary embolism with CT imaging. HEART score 1 for risk factors, low risk. On reassessment he remains well appearing with reassuring vital signs and no chest pain. Findings discussed with patient. Will get 3 hour troponin; if negative would discharge home to outpatient followup with PCP. Signed out to oncoming physician; anticipate discharge home after second negative troponin. Imaging Data Radiologic Study: Imaging: X-Ray Radiologist's impression: IMPRESSION: No acute abnormality. Lab Data Lab results reviewed: Yes I reviewed the patient's lab results. Labs: Laboratory Tests Range/Units 09/09/23 13:34 WBC (4.4-10.8) 10^3/uL 7.96 RBC (4.36-5.78) 10^6/uL 5.19 Hgb (13.5-17.5) g/dL 14.9 Hct (40.0-50.0) % 44.7 MCV (80-95) fL 86 MCH (27.0-33.0) pg 28.7 MCHC (32.0-36.0) % 33.3 RDW (11.8-14.1) % 12.1 Plt Count (130-400) 10^3/uL 261 MPV (8.0-11.0) fL 10.3 Immature Gran % 0.1 Neutrophils % 58.0 Lymphocytes % 33.9 Monocytes % 6.0 Eosinophils % 1.5 Basophils % 0.5 Nucleated RBC % (0.0-0.3) % 0.0 Absolute Neutrophils (1.2-6.7) 10^3/uL 4.61 Absolute Lymphocytes (1.2-3.4) 10^3/uL 2.70 Absolute Monocytes (0.1-0.8) 10^3/uL 0.48 Absolute Eosinophils (0.0-0.7) 10^3/uL 0.12 Absolute Basophils (0.0-0.2) 10^3/uL 0.04 D-Dimer (<500) ng/mlFEU 235 Sodium (136-145) mmol/L 141 Potassium (3.5-5.1) mmol/L 3.5 Chloride (98-107) mmol/L 103 Carbon Dioxide (21.0-32.0) mmol/L 29.7 Anion Gap (3-11) mmol/L 8.3 BUN (7-18) mg/dL 18 Creatinine (0.70-1.30) mg/dL 1.0 Est GFR (CKD-EPI 2020) (mL/min/1.73m2) 96.97 Glucose (74-106) mg/dL 86 Calcium (8.5-10.1) mg/dL 9.3 Magnesium (1.8-2.4) mg/dL 2.3 Total Bilirubin (0.2-1.0) mg/dL 0.3 AST (15-37) U/L 31 ALT (16-63) U/L 66 H Alkaline Phosphatase (46-116) U/L 81 Troponin I (<or=60) ng/L < 50 NT-Pro-B Natriuret Pep (<300) pg/mL 16 Total Protein (6.4-8.2) g/dL 7.8 Albumin (3.4-5.0) g/dL 4.2 HPI General Mode of arrival: ambulatory . Date/Time Provider Initiated Documentation: 09/09/23 13:24 . Limitations to Documentation: no limitations . Information obtained by: patient . HPI Narrative: 42yo M with hx of HTN, GERD, no prior cardiac history, presenting for intermittent chest pain for the past two weeks. First episode two weeks ago, lateral right ribs radiating into right arm which lasted for several hours and then resolved without intervention. Had a few other similar episodes lasting less than an hour each, in other locations across his chest not always on the right. Today he had 15-30 minutes of dull chest tightness across his entire anterior chest. No provoking factors, not exertional. Has not tried anything at home for the symptoms. No assoicated shortness of breath, nausea, vomiting, lightheadedness, orthopnea, or LE edema. He does report that he has sometimes felt lightheaded, nauseated, and fatigued over the past several months but that these symptoms have never occurred at the same time as the chest pain. Some dyspnea on exertion over the past two years, not acutely worse recently. No family history of blood clots or early cardiac disease that he knows of. His father did have a heart attack two weeks ago. Otherwise in his usual state of health with no fevers, chills, rash, back pain, numbness, tingling, weakness, or other concerns. Related Data Home Medications Medication Instructions Recorded Confirmed ergocalciferol (vitamin D2) 50 mcg 50 mcg PO DAILY 04/24/21 09/09/23 (2,000 unit) capsule vitamin K2 40 mcg tablet 40 mcg PO DAILY 04/24/21 09/09/23 testosterone 1 pump topical DAILY testosterone 09/02/21 09/09/23 replacement #75 grams omeprazole 20 mg capsule,delayed 1 cap PO DAILY 06/26/22 09/09/23 release amitriptyline 10 mg tablet 10 mg PO DAILY 09/09/23 09/09/23 Previous Rx's Medication Instructions Recorded testosterone 1 pump topical DAILY testosterone 09/02/21 replacement #75 grams Allergies Allergy/AdvReac Type Severity Reaction Status Date / Time amoxicillin Allergy Severe Verified 09/09/23 13:23 bupropion [From Wellbutrin] Allergy Intermediate Verified 09/09/23 13:23 Sulfa (Sulfonamide Allergy Unknown Unverified 09/09/23 13:23 Antibiotics) General Stated Complaint: Chest Pain BECKIE: 2 Review of Systems Narrative: see HPI PFSH All Active Problems (Updated 09/09/23 @ 15:06 by Mariya Zhu MD) Chest pain of uncertain etiology (Acute) Vertigo (Acute) Obstructive sleep apnea (Chronic) Chronic daily headache (Acute) Fatigue (Acute) Burn (Acute) Cellulitis (Acute) Aphasia (Acute) Headache (Acute) History of paresthesia (Acute) Dysuria (Acute) Medical History Acoustic neuroma Dyspnea on exertion Elevated white blood cell count GERD (gastroesophageal reflux disease) Hearing loss, left Hypertension Indirect inguinal hernia Left-sided Richardson's palsy Lower back pain Nicotine dependence Retinal defect Rotator cuff syndrome right UTI (urinary tract infection) Vitamin D deficiency Weakness Surgical History S/P appendectomy S/P excision of acoustic neuroma S/P hernia repair Social History Smoking/Tobacco Use Status: Former Tobacco Use Smoking risk assessment performed?: Yes Alcohol Intake: former Substance use type: does not use Details: no alcohol or tobacco for years Household members: spouse Number of Children: 4 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 Head: Normocephalic, atraumatic Neck: Trachea midline, ?Neck supple. Cardiac: ?RRR, no murmurs appreciated Resp: No respiratory distress. CTAB. Abd: ?Soft, non-distended, nontender : ?No suprapubic tenderness. Extremities: ?No deformities.? No peripheral edema. Neurologic: GCS 15. ? Moves all extremities freely against gravity Course Vital Signs Vital signs: Vital Signs Temperature 36.3 C L 09/09/23 13:09 Pulse 91 H 09/09/23 13:09 Respiratory Rate 20 09/09/23 13:09 Blood Pressure 135/93 H 09/09/23 13:09 Pulse Oximetry 95 09/09/23 13:09 Temperature 36.3 C L 09/09/23 13:09 Temperature Source Oral 09/09/23 13:09 Pulse 98 H 09/09/23 13:15 Pulse 98 H 09/09/23 13:15 Respiratory Rate 15 09/09/23 13:19 Respiratory Effort Non-Labored, Short of Breath 09/09/23 13:19 Respiratory Depth Normal 09/09/23 13:19 Respiratory Pattern Normal 09/09/23 13:19 Blood Pressure 133/96 H 09/09/23 13:15 Blood Pressure Mean 106 09/09/23 13:15 Pulse Oximetry 98 09/09/23 13:15 Oxygen Delivery Method Room Air 09/09/23 13:09 Oxygen Flow Rate 0 09/09/23 13:09 Pain Level 3 09/09/23 13:09 Sign Out Sign Out Data: Sign Out Comment: 42yo M intermittent chest pain in various locations for two weeks, non exertional. EKG and labs reassuring. Pending 2nd troponin, likely dc home when negative. If positive likely admit for further cardiac workup. Last updated by Mariya Zhu MD at 09/09/23 15:16
[2023-09-09 13:54] LABS: Abs Immature Grans 0.01 10^3/uL (0.0-0.06); Absolute Basophil Count 0.04 10^3/uL (0.0-0.2); Absolute Eosinophil Count 0.12 10^3/uL (0.0-0.7); Absolute Monocyte Count 0.48 10^3/uL (0.1-0.8); Absolute Neutrophil Count 4.61 10^3/uL (1.2-6.7); Basophils % 0.5; Eosinophils % 1.5; HCT 44.7 % (40.0-50.0); HGB 14.9 g/dL (13.5-17.5); Immature Grans % 0.1; Lymphocytes % 33.9; MCH 28.7 pg (27.0-33.0); MCHC 33.3 % (32.0-36.0); MCV 86 fL (80-95); MPV 10.3 fL (8.0-11.0); Platelet Count 261 10^3/uL (130-400); RBC 5.19 10^6/uL (4.36-5.78); RDW 12.1 % (11.8-14.1); RDW-SD 38.5 fL; WBC 7.96 10^3/uL (4.4-10.8)
--- NOTE | 2023-09-09 13:56 | DI.RAD_ITS ---
Exam(s) XR CHEST 2V PA LATERAL EXAM: XR CHEST 2V PA LATERAL CLINICAL HISTORY: intermittent chest pain TECHNIQUE: 2D digital imaging was performed. COMPARISON: CT CT ABDOMEN PELVIS W from 02/21/2021 FINDINGS: HEART: Normal size. Aorta: Not dilated. PULMONARY VASCULATURE: Normal. LUNGS: Clear. PLEURAL SPACE: No pleural effusion or pneumothorax. BONE:Unremarkable for age. Soft tissues: Unremarkable. IMPRESSION: No acute abnormality. DATA REPOSITORY: RADIATION DOSE DELIVERED:
[2023-09-09 14:14] LABS: ALT 66 U/L (16-63); AST 31 U/L (15-37); Albumin 4.2 g/dL (3.4-5.0); Alkaline Phosphatase 81 U/L (46-116); Anion Gap 8.3 mmol/L (3-11); BUN 18 mg/dL (7-18); Bilirubin, Total 0.3 mg/dL (0.2-1.0); CO2 29.7 mmol/L (21.0-32.0); Calcium 9.3 mg/dL (8.5-10.1); Chloride 103 mmol/L (98-107); Estimated GFR 96.97 (mL/min/1.73m2); Glucose 86 mg/dL (74-106); Magnesium 2.3 mg/dL (1.8-2.4); NT-proBNP 16 pg/mL (<300); Potassium 3.5 mmol/L (3.5-5.1); Sodium 141 mmol/L (136-145); Total Protein 7.8 g/dL (6.4-8.2); Troponin I < 50 ng/L (<or=60)
[2023-09-09 14:21] LABS: D-Dimer 235 ng/mlFEU (<500)
[2023-09-09 16:55] LABS: Troponin I < 50 ng/L (<or=60)
== END 2023-09-09 17:03 | disposition home or self-care (01) ==
PROVIDERS: Emergency Provider Student in an Organized Health Care Education/Training Program; PCP Family Medicine
DX: R07.9 Chest pain, unspecified (principal); I10 Essential (primary) hypertension; K21.00 Gastro-esophageal reflux disease with esophagitis, without bleeding
CPT/HCPCS: 36415; 80053; 93005; 99283; 71046; 83735; 83880; 84484; 85025; 85379; 93010

== ENCOUNTER 2024-07-19 15:11 | Outpatient (REF) | payer MEDICAID, SELFPAY ==
[2024-07-19 20:11] LABS: ALT 45 U/L (16-63); AST 29 U/L (15-37); Albumin 4.3 g/dL (3.4-5.0); Alkaline Phosphatase 86 U/L (46-116); Anion Gap 12.9 mmol/L (3-11); BUN 19 mg/dL (7-18); Bilirubin, Total 0.37 mg/dL (0.2-1.0); CO2 23.1 mmol/L (21.0-32.0); Calcium 9.4 mg/dL (8.5-10.1); Chloride 104 mmol/L (98-107); Estimated GFR 96.37 (mL/min/1.73m2); Glucose 88 mg/dL (74-106); Potassium 4.6 mmol/L (3.5-5.1); Sodium 140 mmol/L (136-145); Total Protein 7.7 g/dL (6.4-8.2)
== END 2024-07-19 15:12 | disposition home or self-care (01) ==
LOC: NCHCN 15:11
PROVIDERS: PCP Family Medicine; Visit Provider Student in an Organized Health Care Education/Training Program
DX: Z13.228 Encounter for screening for other metabolic disorders (principal)
CPT/HCPCS: 80053

== ENCOUNTER 2025-05-10 09:32 | Emergency (ER) | payer MEDICAID, SELFPAY ==
[2025-05-10] VITALS (24 sets, daily range): BP systolic 136–167; BP diastolic 92–114; PULSE 67–99; RESP 10–21; TEMP 35.4; O2SAT 95–100
--- NOTE | 2025-05-10 09:30 | RT.EKG_ITS ---
APPROVED REPORT Exam: Resting ECG Reason for Exam: Chest Pain Patient Location: E HR:98 bpm ECG Measurements Heart Rate 98 AXIS PA 124 P 62 QRSd 85 QRS 37 QT 350 T 22 QTc 447 Conclusion Sinus rhythm...normal P axis, V-rate 60- 99 I have reviewed and interpreted ECG and agree with software generated interpretation.
[2025-05-10 10:16] LABS: Abs Immature Grans 0.01 10^3/uL (0.0-0.06); HCT 43.2 % (40.0-50.0); HGB 14.5 g/dL (13.5-17.5); Immature Grans % 0.1 %; MCH 28.5 pg (27.0-33.0); MCHC 33.6 % (32.0-36.0); MCV 85 fL (80-95); MPV 10.6 fL (8.0-11.0); Platelet Count 249 10^3/uL (130-400); RBC 5.08 10^6/uL (4.36-5.78); RDW 12.8 % (11.8-14.1); RDW-SD 39.7 fL; WBC 7.34 10^3/uL (4.4-10.8)
[2025-05-10] MEDS: Lactated Ringers 1,000 ML 1000 ML IV (10:19)
[2025-05-10] MEDS: Meclizine 25 MG TAB PO (10:20)
[2025-05-10] MEDS: Ondansetron 4 MG/2 ML VIAL IVP (10:21)
[2025-05-10 10:25] LABS: INR 1.0 (0.9-1.1); PTT Activated 26.1 sec (20.6-30.2); Prothrombin Time 10.4 sec (9.1-11.1)
[2025-05-10] MEDS: Normal Saline Flush 10 ML SYR IVP (10:28)
[2025-05-10] MEDS: Normal Saline - Diluent 50 ML VIAL IJ (10:28)
[2025-05-10] MEDS: Omnipaque 350 MG/ML 500 ML BTL-Imaging package IJ (10:30)
[2025-05-10 10:38] LABS: ALT 35 U/L (16-63); AST 23 U/L (15-37); Albumin 4.4 g/dL (3.4-5.0); Alkaline Phosphatase 73 U/L (46-116); Anion Gap 8.1 mmol/L (3-11); BUN 19 mg/dL (7-18); Bilirubin, Total 0.4 mg/dL (0.2-1.0); CO2 27.9 mmol/L (21.0-32.0); Calcium 9.3 mg/dL (8.5-10.1); Chloride 102 mmol/L (98-107); Estimated GFR 108.68 (mL/min/1.73m2); Glucose 93 mg/dL (74-106); Potassium 4.4 mmol/L (3.5-5.1); Sodium 138 mmol/L (136-145); TSH (W/Ref FT4) 1.87 uIU/mL (0.36-3.74); Total Protein 7.8 g/dL (6.4-8.2); Troponin I 4 ng/L (<or=76)
--- NOTE | 2025-05-10 10:42 | DI.CT_ITS ---
Exam(s) CT THORAX ABD/PEL CTA EXAM: CT THORAX ABD/PEL CTA CLINICAL HISTORY: Chest pain his eval for dissection. TECHNIQUE: Imaging Protocol: Axial CT angiography was performed with multi- slice acquisition and multi-planar and/or 3D reconstructions. Lung Computer Aided Detection (CAD) was utilized. CONTRAST MATERIAL: Intravenous: Omnipaque 350 contrast volume:100 mL Oral: No COMPARISON: CT CT ABDOMEN PELVIS W from 02/21/2021 FINDINGS: CHEST: Tracheobronchial tree: Patent where visualized. There is no evidence of bronchiectasis. Pulmonary parenchyma: No consolidation or dominant measurable mass. There is dependent atelectasis. Pulmonary Arteries: No evidence of filling defect to suggest pulmonary emboli. Mediastinum and Harmony: No dominant adenopathy or fluid collection. The esophagus is unremarkable. Visualized thyroid: Unremarkable. Pleura: No effusion or pneumothorax. Heart: The heart is not dilated. No coronary artery calcifications are seen. No pericardial effusion. Aorta: Thoracic aorta non-dilated. There is no evidence of dissection. Soft Tissues: Unremarkable. Bones: Within normal limits for the patient's age.There are no displaced rib fractures. ABDOMEN AND PELVIS: Abdomen: Celiac axis/mesenteric arteries: No evidence of occlusion or significant stenosis. Renal Arteries: No evidence of occlusion or significant stenosis. Aorta: No evidence of occlusion or significant stenosis. No aneurysm or dissection. Mild atherosclerotic calcification is present. Pelvis: Iliac Arteries: No evidence of occlusion or significant stenosis. Mild atherosclerotic calcification is present. Common Femoral Arteries: No evidence of occlusion or significant stenosis. ABDOMEN: Liver: Normal density. No measurable mass. There is a tiny hypodensity in the left lobe of the liver. It is too small for further characterization. Portal, superior mesenteric and splenic veins: Unremarkable. Gallbladder and Biliary Tract: No radiodense calculus or dilation. Pancreas: Normal density, no abnormal calcifications or inflammatory process. Spleen: Normal. Adrenals: No masses seen. Kidneys: Normal size, contour and axis. No radiodense stones or obstructive uropathy. No masses seen. Bowel: No obstruction or bowel wall thickening. There is no evidence of appendicitis. Peritoneal Cavity: No ascites, collection or mesenteric inflammatory response. No free air. Lymph Nodes: Within normal limits. Bones: Within normal limits for the patient's age. Soft Tissues: Unremarkable. PELVIS: Bladder: Symmetric distention, no gross wall thickening. Reproductive Organs: Unremarkable as visualized. Lymph Nodes: Within normal limits. Bones: Within normal limits for the patient's age. IMPRESSION: 1. There is no acute abdominal or pelvic process. 2. There is no evidence of an abdominal aortic aneurysm or dissection. 3. There is no acute pulmonary process. There is no evidence of a pulmonary embolism, thoracic aortic dissection or aneurysm. RADIATION DOSE DELIVERED: 900.96mGy.cm Total DLP DATA REPOSITORY: All CT scans at this facility are submitted to the National Radiology Data Registry (NRDR) Dose Index Registry (DIR) with the [employer] (A[employer]). RADIATION OPTIMIZATION: All CT scans at this facility use at least one of these dose optimization techniques: automated exposure control; mA and/or kV adjustment per patient size (includes targeted exams where dose is matched to clinical indication); or iterative reconstruction.
--- NOTE | 2025-05-10 10:42 | DI.CT_ITS ---
Exam(s) CT HEAD WO EXAM: CT HEAD WO CLINICAL HISTORY: History of brain surgery, now dizzy with headache.. TECHNIQUE: Imaging Protocol: Axial computed tomography images with coronal and sagittal reformatted images were created and reviewed COMPARISON: CT CT HEAD WO/W FACIAL W from 06/26/[address] HEAD WO from 05/10/2023 FINDINGS: Ventricles and Extra axial spaces: Normal in size and morphology for the patient's age. Hemorrhage: None. Cerebral parenchyma: There is a normal ash-white matter differentiation. Midline shift: None. Brainstem/Cerebellum: Normal. Calvarium: Normal. There again seen postsurgical changes of a prior left temporal craniotomy. Visualized Paranasal sinuses/Mastoids: Clear. Soft Tissues: Unremarkable. IMPRESSION: No acute intracranial process. RADIATION DOSE DELIVERED: 848.68mGy.cm Total DLP DATA REPOSITORY: All CT scans at this facility are submitted to the National Radiology Data Registry (NRDR) Dose Index Registry (DIR) with the [employer] (ACR). RADIATION OPTIMIZATION: All CT scans at this facility use at least one of these dose optimization techniques: automated exposure control; mA and/or kV adjustment per patient size (includes targeted exams where dose is matched to clinical indication); or iterative reconstruction.
[2025-05-10 11:08] LABS: Lipase 40 U/L (<78)
[2025-05-10 11:27] LABS: Troponin I 4 ng/L (<or=76)
--- NOTE | 2025-05-10 11:35 | W.ED.GENAD ---
Discharge Plan Disposition Patient Disposition: Home Condition: Good Discharge Details Clinical Impression: Dizziness, Chest pain Primary Care Provider: Kobe Richardson ED Provider: Jarek Morrison Home Meds and New Rx's Prescriptions: New meclizine 25 mg tablet 25 mg PO BID PRNQty: 10 0RF No Action omeprazole 20 mg capsule,delayed release(DR/EC) 1 cap PO DAILY ibogaine 100 mg PO DAILY Discharge Instructions Instructions: Dizziness, Adult ED, Chest pain Additional Instructions: At this time your workup has returned, there is no signs of stroke, bleed, blood clot, heart attack or other significant abnormality on your workup. While it seems unlikely that there is a cardiac component, it would be prudent given your age history and risk factors that you follow-up closely with your primary care provider to discuss nonemergent stress testing on an outpatient basis. Please make sure to continue to drink plenty of fluids and stay well-hydrated. Take the meclizine as needed for dizziness. If you notice any worsening of your symptoms, or any new symptoms such as vomiting, diarrhea, fever, chills, shortness of breath, chest pain, numbness, weakness, or fainting , please return immediately to the emergency department for reevaluation. Please follow up with your primary care provider as soon as possible for reassessment and reevaluation. As always, it was a pleasure participating in your medical care today. Referrals: Kobe Richardson [Primary Care Provider, Medicine] Steven Heredia [ NON-[facility] STAFF PHYSICIAN, Medicine] Discharge Data Discharge Date/Time-TO BE ENTERED AT DEPARTURE: 05/10/25 11:57 HPI General Date/Time Provider Initiated Documentation: 05/10/25 09:50. HPI Narrative: 44-year-old male with a past medical history of obstructive sleep apnea, chronic headaches secondary to previous brain tumor and subsequent surgery, GERD, hypertension, TBI, distant tobacco use, who presents today for evaluation of chest pain mild dizziness and mild headache. Patient states that for the last week he has had chest pain which she describes as a tightness in the center of his chest that radiates to the right and left. He states that it seems to be present at all times, but it slightly worse when he exerts himself, but he is uncertain if it improves with rest. Occasionally it will radiate up to his left face, with some mild tingling there. He denies any cough, pleuritic chest pain or shortness of breath otherwise. The tightness is described as mild, he denies any tearing or ripping sensation. No syncope. No vomiting or diarrhea. No particular aggravating or relieving factors otherwise aside for the aforementioned components. In addition to this he also noticed some mild head/face discomfort today, stating that he feels slightly dizzy, and a little out of it. The patient denies any headache red flags of worst headache of life, thunderclap headache, neck pain, fever, chills, concerning family history of polycystic kidney disease, Marfan syndrome, Elisa-Danlos syndrome, abdominal aortic aneurysm, aortic dissection, or intracranial aneurysm. No other complaints at this time. Related Data Home Medications ?Medication ?Instructions ?Recorded ?Confirmed omeprazole 20 mg capsule,delayed 1 cap PO DAILY 06/26/22 05/10/25 release ibogaine 100 mg PO DAILY 05/10/25 05/10/25 meclizine 25 mg tablet 25 mg PO BID PRN #10 tabs 05/10/25 Previous Rx's ?Medication ?Instructions ?Recorded meclizine 25 mg tablet 25 mg PO BID PRN #10 tabs 05/10/25 Allergies Allergy/AdvReac Type Severity Reaction Status Date / Time amoxicillin Allergy Severe Other (See Verified 05/10/25 09:45 Comment) bupropion (From Wellbutrin) Allergy Intermediate Other (See Verified 05/10/25 09:45 Comment) Sulfa (Sulfonamide Allergy Unknown Other (See Unverified 05/10/25 09:45 Antibiotics) Comment) General Stated Complaint: Chest Pain BECKIE: 2 Exam Narrative Exam Narrative: 1.Const: Well-nourished, Well-developed, appearing stated age 2.Eyes: PERRL, no conjunctival injection, and symmetrical lids. 3.ENT: Atraumatic external nose and ears. Dry MM. Neck: Symmetric, trachea midline, No thyromegaly. 4.CVS: +S1/S2, Peripheral pulses 2+ and equal in all extremities. Brisk capillary refill in all extremities. 5.RESP: Unlabored respiratory effort. Clear to auscultation bilaterally. No wheezes rales or rhonchi 6.GI: Soft, Nontender/Nondistended, No hepatosplenomegaly. No guarding or rebound. 7.MSK: Normocephalic/Atraumatic, Extremities w/o deformity or ttp No cyanosis or clubbing, Normal movement of all extremities 8.Skin: Warm, Dry. No rashes or lesions. 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 Sensation grossly intact, no focal neurologic deficits. All 6 cardinal planes of vision are fully intact. No evidence of rotatory, horizontal or vertical nystagmus. The patient demonstrated a normal [id number], good dexterity. There was no evidence of dysdiadochokinesia. Patient was able to ambulate without difficulty. There was no wide-based gait. Romberg testing was normal. Ymej-oo-jyns testing was normal. Sensation was intact bilaterally as well as muscle strength bilaterally for all extremities. Patient was able to verbalize butter cup with no slurring, or miss pronunciation. 10.Psych: (AAO) x3. Appropriate mood and affect Course Vital Signs Vital signs: Vital Signs Temperature 35.4 C L 05/10/25 09:35 Pulse 99 H 05/10/25 09:35 Respiratory Rate 19 05/10/25 09:35 Blood Pressure 148/114 H 05/10/25 09:35 Pulse Oximetry 98 05/10/25 09:35 Temperature 35.4 C L 05/10/25 09:35 Temperature Source Temporal Artery Scan 05/10/25 09:35 Pulse 74 05/10/25 11:26 Pulse 85 05/10/25 10:20 Respiratory Rate 10 L 05/10/25 11:26 Blood Pressure 150/107 H 05/10/25 11:26 Blood Pressure Mean 121 05/10/25 11:26 Pulse Oximetry 99 05/10/25 11:26 Oxygen Delivery Method Room Air 05/10/25 11:26 Oxygen Flow Rate 0 05/10/25 11:26 Pain Level 0 05/10/25 10:53 Comment unable to rate pain 05/10/25 09:35 Lab/Test Results Lab/Test Results: Laboratory Tests Range/Units 05/10/25 09:48 WBC (4.4-10.8) 10^3/uL 7.34 RBC (4.36-5.78) 10^6/uL 5.08 Hgb (13.5-17.5) g/dL 14.5 Hct (40.0-50.0) % 43.2 MCV (80-95) fL 85 MCH (27.0-33.0) pg 28.5 MCHC (32.0-36.0) % 33.6 RDW (11.8-14.1) % 12.8 Plt Count (130-400) 10^3/uL 249 MPV (8.0-11.0) fL 10.6 Immature Gran % % 0.1 Neutrophils % % 50.9 Lymphocytes % % 41.0 Monocytes % % 6.5 Eosinophils % % 0.8 Basophils % % 0.7 Nucleated RBC % (0.0-0.3) % 0.0 Absolute Neutrophils (1.2-6.7) 10^3/uL 3.73 Absolute Lymphocytes (1.2-3.4) 10^3/uL 3.01 Absolute Monocytes (0.1-0.8) 10^3/uL 0.48 Absolute Eosinophils (0.0-0.7) 10^3/uL 0.06 Absolute Basophils (0.0-0.2) 10^3/uL 0.05 PT (9.1-11.1) sec 10.4 INR (0.9-1.1) 1.0 APTT (20.6-30.2) sec 26.1 Sodium (136-145) mmol/L 138 Potassium (3.5-5.1) mmol/L 4.4 Chloride (98-107) mmol/L 102 Carbon Dioxide (21.0-32.0) mmol/L 27.9 Anion Gap (3-11) mmol/L 8.1 BUN (7-18) mg/dL 19 H Creatinine (0.70-1.30) mg/dL 0.9 Est GFR (CKD-EPI 2020) (mL/min/1.73m2) 108.68 Glucose (74-106) mg/dL 93 Calcium (8.5-10.1) mg/dL 9.3 Total Bilirubin (0.2-1.0) mg/dL 0.4 AST (15-37) U/L 23 ALT (16-63) U/L 35 Alkaline Phosphatase (46-116) U/L 73 Troponin I (<or=76) ng/L 4 Total Protein (6.4-8.2) g/dL 7.8 Albumin (3.4-5.0) g/dL 4.4 Lipase (<78) U/L 40 TSH (0.36-3.74) uIU/mL 1.87 Ethyl Alcohol (<10) mg/dL < 3.0 Medical Decision Making 44-year-old male with a past medical history of obstructive sleep apnea, chronic headaches secondary to previous brain tumor and subsequent surgery, GERD, hypertension, TBI, distant tobacco use, who presents today for evaluation of chest pain mild dizziness and mild headache. Patient states that for the last week he has had chest pain which she describes as a tightness in the center of his chest that radiates to the right and left. He states that it seems to be present at all times, but it slightly worse when he exerts himself, but he is uncertain if it improves with rest. Occasionally it will radiate up to his left face, with some mild tingling there. He denies any cough, pleuritic chest pain or shortness of breath otherwise. The tightness is described as mild, he denies any tearing or ripping sensation. No syncope. No vomiting or diarrhea. No particular aggravating or relieving factors otherwise aside for the aforementioned components. In addition to this he also noticed some mild head/face discomfort today, stating that he feels slightly dizzy, and a little out of it. The patient denies any headache red flags of worst headache of life, thunderclap headache, neck pain, fever, chills, concerning family history of polycystic kidney disease, Marfan syndrome, Elisa-Danlos syndrome, abdominal aortic aneurysm, aortic dissection, or intracranial aneurysm. No other complaints at this time. Physical exam demonstrates well-appearing male, no acute distress, EKG is unremarkable with no signs of STEMI, no other significant abnormality. No evidence of dysrhythmia. Mucous membranes are notably dry. Patient has low risk for significant cardiac etiology, however it remains on the differential. Dehydration, mild peripheral vertigo, are certainly on the differential. Dissection and PE is of concern as well, as well as potential stroke or bleed although these are less likely. Given the patient's history of brain surgery, he has chest discomfort, with his atypical head symptoms we will get CT imaging of the head and chest. Will rehydrate, give meclizine, monitor closely and reassess. [address] imaging of the head chest and abdomen are negative for acute process. No PE, dissection, or other abnormality. No stroke or bleed intracranially. Laboratory workup demonstrates no significant electrolyte abnormality, thyroid function normal, lipase and serial troponins are all normal. BUN is 19 with a creatinine of 0.9, potential dehydration may be a component. On reassessment the patient has complete improvement of his symptoms aside for a mild amount of chest achiness. Symptomatology appears to be clinically inconsistent with ACS or STEMI. Will recommend outpatient nonemergent stress testing. No evidence to suggest PE or dissection. No evidence of pneumonia. Will recommend rest, close outpatient follow-up, good hydration at home. Discussed red flags for which to return. I have extensively reviewed the treatment plan and discharge instructions with the patient. I have addressed all patient concerns at this time. The patient was made aware of what symptoms to monitor for that would warrant a return to the emergency department. Discussed the plan with the patient, they demonstrate verbal understanding and agreement with our assessment and plan at this time. The documentation in this chart was dictated using [email or web address] dictation software. Please excuse any dictation errors. FINDINGS: Ventricles and Extra axial spaces: Normal in size and morphology for the patient's age. Hemorrhage: None. Cerebral parenchyma: There is a normal ash-white matter differentiation. Midline shift: None. Brainstem/Cerebellum: Normal. Calvarium: Normal. There again seen postsurgical changes of a prior left temporal craniotomy. Visualized Paranasal sinuses/Mastoids: Clear. Soft Tissues: Unremarkable. IMPRESSION: No acute intracranial process. FINDINGS: CHEST: Tracheobronchial tree: Patent where visualized. There is no evidence of bronchiectasis. Pulmonary parenchyma: No consolidation or dominant measurable mass. There is dependent atelectasis. Pulmonary Arteries: No evidence of filling defect to suggest pulmonary emboli. Mediastinum and Harmony: No dominant adenopathy or fluid collection. The esophagus is unremarkable. Visualized thyroid: Unremarkable. Pleura: No effusion or pneumothorax. Heart: The heart is not dilated. No coronary artery calcifications are seen. No pericardial effusion. Aorta: Thoracic aorta non-dilated. There is no evidence of dissection. Soft Tissues: Unremarkable. Bones: Within normal limits for the patient's age.There are no displaced rib fractures. ABDOMEN AND PELVIS: Abdomen: Celiac axis/mesenteric arteries: No evidence of occlusion or significant stenosis. Renal Arteries: No evidence of occlusion or significant stenosis. Aorta: No evidence of occlusion or significant stenosis. No aneurysm or dissection. Mild atherosclerotic calcification is present. Pelvis: Iliac Arteries: No evidence of occlusion or significant stenosis. Mild atherosclerotic calcification is present. Common Femoral Arteries: No evidence of occlusion or significant stenosis. ABDOMEN: Liver: Normal density. No measurable mass. There is a tiny hypodensity in the left lobe of the liver. It is too small for further characterization. Portal, superior mesenteric and splenic veins: Unremarkable. Gallbladder and Biliary Tract: No radiodense calculus or dilation. Pancreas: Normal density, no abnormal calcifications or inflammatory process. Spleen: Normal. Adrenals: No masses seen. Kidneys: Normal size, contour and axis. No radiodense stones or obstructive uropathy. No masses seen. Bowel: No obstruction or bowel wall thickening. There is no evidence of appendicitis. Peritoneal Cavity: No ascites, collection or mesenteric inflammatory response. No free air. Lymph Nodes: Within normal limits. Bones: Within normal limits for the patient's age. Soft Tissues: Unremarkable. PELVIS: Bladder: Symmetric distention, no gross wall thickening. Reproductive Organs: Unremarkable as visualized. Lymph Nodes: Within normal limits. Bones: Within normal limits for the patient's age. IMPRESSION: 1. There is no acute abdominal or pelvic process. 2. There is no evidence of an abdominal aortic aneurysm or dissection. 3. There is no acute pulmonary process. There is no evidence of a pulmonary embolism, thoracic aortic dissection or aneurysm. PFSH All Active Problems (Updated 05/10/25 @ 11:46 by Jarek Morrison DO) Chest pain (Acute) Dizziness (Acute) Vertigo (Acute) Obstructive sleep apnea (Chronic) Chronic daily headache (Acute) Fatigue (Acute) Burn (Acute) Cellulitis (Acute) Aphasia (Acute) Headache (Acute) History of paresthesia (Acute) Dysuria (Acute) Medical History Acoustic neuroma Dyspnea on exertion Elevated white blood cell count GERD (gastroesophageal reflux disease) Hearing loss, left Hypertension Indirect inguinal hernia Left-sided Richardson's palsy Lower back pain Nicotine dependence Retinal defect Rotator cuff syndrome right UTI (urinary tract infection) Vitamin D deficiency Weakness Surgical History S/P appendectomy S/P excision of acoustic neuroma S/P hernia repair Social History Smoking/Tobacco Use Status: Former Tobacco Use Smoking risk assessment performed?: Yes Alcohol Intake: former Substance use type: does not use Details: no alcohol or tobacco for years Household members: spouse Number of Children: 4 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
[2025-05-10 11:54] LABS: Magnesium 2.2 mg/dL (1.8-2.4)
== END 2025-05-10 11:57 | disposition home or self-care (01) ==
PROVIDERS: Emergency Provider Student in an Organized Health Care Education/Training Program; PCP Family Medicine
DX: R42 Dizziness and giddiness (principal); R07.9 Chest pain, unspecified
CPT/HCPCS: 71275; 80053; 83690; 93005; 96361; 96374; 99285; 70450; 74174; 80320; 83735; 84443; 84484; 85025; 85610; 85730; 93010; 99284; J2405

== ENCOUNTER 2025-05-24 04:20 | Outpatient (CLI) | payer MEDICAID, SELFPAY ==
[2025-05-24 08:56] LABS: Anion Gap 5.2 mmol/L (3-11); BUN 17 mg/dL (7-18); CO2 30.8 mmol/L (21.0-32.0); Calcium 9.8 mg/dL (8.5-10.1); Chloride 104 mmol/L (98-107); Estimated GFR 95.77 (mL/min/1.73m2); Glucose 97 mg/dL (74-106); Magnesium 2.2 mg/dL (1.8-2.4); Potassium 4.2 mmol/L (3.5-5.1); Sodium 140 mmol/L (136-145)
== END 2025-05-24 04:21 | disposition home or self-care (01) ==
LOC: LBO 04:20
PROVIDERS: PCP Family Medicine; Visit Provider Student in an Organized Health Care Education/Training Program
DX: R25.2 Cramp and spasm (principal)
CPT/HCPCS: 36415; 80048; 83735